=== PATIENT | female | born 1940 | race Caucasian/White ===

== ENCOUNTER → 2017-10-02 13:58 | Outpatient (CLI) | payer MEDICARE, OTHER, SELFPAY | PROVIDERS: Family Provider Family Medicine Geriatric Medicine; PCP Family Medicine Geriatric Medicine; Visit Provider Obstetrics & Gynecology | DX: R30.0 Dysuria (principal); R31.9 Hematuria, unspecified; R52 Pain, unspecified | CPT/HCPCS: 87086; 87088 ==

== ENCOUNTER → 2017-11-26 13:35 | Outpatient (CLI) | payer MEDICARE, OTHER, SELFPAY ==
--- NOTE | 2017-11-26 13:39 | VDLE_ITS ---
Reason For Study: edema RIGHT LEFT GSV is normal. GSV is normal. CFV is compressible, spontaneous, phasic, CFV is compressible, spontaneous, phasic, competent and demonstrates normal competent, and demonstrates normal augmentation. augmentation. FV is compressible, spontaneous, phasic, FV is compressible, spontaneous, phasic, competent and demonstrates normal competent and demonstrates normal augmentation. augmentation. POP V is compressible, spontaneous, phasic, POP V is compressible, spontaneous, phasic, competent and demonstrates normal competent and demonstrates normal augmentation. augmentation. T/P Trunk is compressible. T/P Trunk is compressible. PTV is compressible. PTV is compressible. RT PerV is compressible. LT PerV is compressible. Procedure Exam performed in department. The exam was diagnostic. A preliminary report was called and/or faxed to Dr. Brandt. Interpretation Summary Deep veins of the lower extremities are bilaterally patent and compressible segmentally. There is no evidence of deep vein thrombosis on either side. Valvular competence appears intact within the proximal deep venous systems bilaterally. The greater saphenous veins appear bilaterally patent and compressible segmentally. Ordering Physician: Yaya Brandt Performed By: Román Singh RVT
== END ==
PROVIDERS: Family Provider Family Medicine Geriatric Medicine; PCP Family Medicine Geriatric Medicine; Visit Provider Family Medicine Geriatric Medicine
DX: R60.0 Localized edema (principal)
CPT/HCPCS: 93970

== ENCOUNTER → 2017-12-03 17:23 | Outpatient (CLI) | payer MEDICARE, OTHER, SELFPAY ==
[2017-12-03 17:55] LABS: Absolute Neutrophil Count 4.3 X10^3/uL (2.0-7.7); Basophil# 0.02 X10^3/uL; Basophil% 0.3 % (0-1); Eosinophil# 0.25 X10^3/uL; Hematocrit 36.8 % (37-47); Hemoglobin 11.7 g/dl (12.0-15.0); Lymphocyte % 17.4 % (19-41); Mean Corp Hgb Conc 31.8 g/gl (32-36); Mean Corpuscular Volume 94.4 fL (81-99); Mean Platelet Vol. 10.4 fl (6.2-12.0); Monocyte# 0.62 X10^3/uL; Monocyte% 9.8 % (0-10); Neutrophil # 4.32 X10^3/uL (2.7-7.7); Neutrophil % 68.3 % (47-70); POSITIVE COUNT NO; POSITIVE DIFFERENTIAL NO; POSITIVE MORPHOLOGY NO; Platelet Count 223 K/mm3 (150-450); RBC Distribution Width CV 14.8 % (11.6-14.6); RBC Distribution Width SD 50.1 fl (35.1-43.9); White Blood Count 6.3 K/mm3 (4.4-11.0)
[2017-12-03 18:31] LABS: Anion Gap 7 (5-15); BUN 21 mg/dL (7-18); BUN/Creat Ratio 25.4 RATIO (10-20); Calcium,Total 8.5 mg/dL (8.5-10.1); Chloride 103 mmol/L (98-107); Creatinine, Serum 0.83 mg/dL (0.55-1.02); EST Glomerular Filtration Rate 71 mL/min (>60); Est Glom Filt Rate - Afr Amer 86 mL/min (>60); Glucose 105 mg/dL (74-106); Potassium 3.7 mmol/L (3.5-5.1); Sodium Level 142 mmol/L (136-145)
== END ==
PROVIDERS: Family Provider Family Medicine Geriatric Medicine; PCP Family Medicine Geriatric Medicine; Visit Provider Family Medicine Geriatric Medicine
DX: I10 Essential (primary) hypertension (principal)
CPT/HCPCS: 36415; 80048; 85025

== ENCOUNTER 2017-12-07 12:34 | Inpatient (IN) | payer MEDICARE, OTHER, SELFPAY ==
[2017-12-07 12:35] VITALS: BP 127/76; PULSE 81; RESP 16; TEMP 36.4; O2SAT 99; BMI 28.7
--- NOTE | 2017-12-07 15:58 | ED.VISSUMM ---
- ER Visit Summary Date of Service: 12/07/17 Chief Complaint: Left lower extremity cellulitis with hematoma History of Present Illness: The patient is a 77 F who hit her left lower extremity 2 weeks ago on a bed frame. She developed a small hematoma around the area. She saw her doctor multiple times for the past 2 weeks has been on Keflex, Rocephin, Levaquin and clindamycin still has a hematoma with cellulitis. Patient has a history of atrial fibrillation on Coumadin. They spoke with Dr. Arellano the plastic surgeon as plan was to do a hematoma drain. He could not do that in the office so the patient was sent here for admission. Patient denies a fever at this time. Physical Examination: Vital signs reviewed. Left lower extremity exam reveals erythema just above the ankle. She has a hematoma that measures 3.5 x 3.5 cm. It is tender to touch. She has 2+ distal pulses. Test Results: [] Emergency Department Course and Treatment: Screening labs were obtained. Patient was discussed with hospitalist for admission and plastic surgery consult Treatment Plan: [] Disposition: Admit Impression: Lower extremity hematoma This note was generated with Cellvine dictation software. It may contain incorrect words, spelling, and punctuation that were not noted in review of the chart prior to signing ED Disposition - Plan for ED Patient: Chief Complaint: Cellulitis Referrals: Yaya Brandt Chi, MD [Primary Care Provider] -
[2017-12-07 16:33] VITALS: BMI 28.7
[2017-12-07 16:37] LABS: Absolute Lymphocyte Count 1.18 X10^3/ul (0.83-4.51); Absolute Neutrophil Count 4.6 X10^3/uL (2.0-7.7); Basophil# 0.02 X10^3/uL; Basophil% 0.3 % (0-1); Eosinophil# 0.23 X10^3/uL; Eosinophils% 3.5 % (0-5); Lymphocyte # 1.18 X10^3/ul (4.0); Lymphocyte % 18.2 % (19-41); Mean Corp Hgb Conc 32.5 g/gl (32-36); Mean Corpuscular Hgb 30.2 pg (27.0-32.0); Mean Corpuscular Volume 92.8 fL (81-99); Mean Platelet Vol. 10.3 fl (6.2-12.0); Monocyte# 0.44 X10^3/uL; Monocyte% 6.8 % (0-10); Platelet Count 246 K/mm3 (150-450); RBC Distribution Width CV 14.7 % (11.6-14.6); RBC Distribution Width SD 48.6 fl (35.1-43.9); Red Blood Count 4.31 M/mm3 (4.2-5.4); White Blood Count 6.5 K/mm3 (4.4-11.0)
[2017-12-07 16:38] LABS: POSITIVE COUNT NO; POSITIVE DIFFERENTIAL NO; POSITIVE MORPHOLOGY NO
[2017-12-07 16:48] LABS: Anion Gap 7 (5-15); BUN 19 mg/dL (7-18); BUN/Creat Ratio 22.4 RATIO (10-20); Calcium,Total 9.1 mg/dL (8.5-10.1); Chloride 103 mmol/L (98-107); Creatinine, Serum 0.85 mg/dL (0.55-1.02); EST Glomerular Filtration Rate 69 mL/min (>60); Est Glom Filt Rate - Afr Amer 84 mL/min (>60); Estimated Creatinine Clearance 53.53 ml/min; Glucose 89 mg/dL (74-106); Potassium 3.7 mmol/L (3.5-5.1); Sodium Level 141 mmol/L (136-145)
[2017-12-07 17:07] VITALS: BP 134/79; PULSE 67; RESP 16; TEMP 36.6; O2SAT 100
--- NOTE | 2017-12-07 18:06 | PCM.HP.STD ---
Problem List (1) Hematoma of left lower extremity Status: Acute History of Present Illness Date of Admission: 12/07/17 Chief Complaint: left leg hematoma The patient is a 77 year old F who on 25 November was trying to move something on her bed with her foot in the medical object underneath bed. Subsequently developed a hematoma of her left lower extremity. Concern was for cellulitis as well and patient been on numerous rounds of biotics. Was not getting any better patient was sent to the emergency room. Patient had a hematoma on the distal aspect of her left pool. Dr. Arellano was contacted and advised patient to be brought into the hospital so that he could do a hematoma drain on the . [] Past Medical History Past Medical History (Chronic Problems): Chronic Problems Paroxysmal atrial fibrillation (Chronic) Hyperlipidemia (Chronic) Benign hypertension (Chronic) Allergies No Known Allergies Allergy (Verified 12/07/17 12:38) Home Medications: Ambulatory Orders Medication Instructions Recorded Losartan Potassium [Cozaar] 50 mg PO BID 06/29/14 Warfarin [Coumadin] 4 mg PO QODAY 06/29/14 Ascorbic Acid [Vitamin C] 1,000 mg PO DAILY 10/28/16 Magnesium 200 mg PO DAILY 10/28/16 Vitamin A 10,000 unit PO DAILY 10/28/16 Clindamycin HCl [Clindamycin HCl] 300 mg PO TID 12/07/17 Hydrochlorothiazide 12.5 mg PO DAILY 12/07/17 [Hydrochlorothiazide] Metoprolol Tartrate [Lopressor 12.5 mg PO BID 12/07/17 (beta nely)] Warfarin [Coumadin ([facility])] 3 mg PO QODAY 12/07/17 levoFLOXacin tablet [Levaquin 500 mg PO DAILY 12/07/17 tablet] Surgical History: - - Foot surgery Psychiatric History: No pertinent psych hx 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 Smoking Status: Former smoker - *Family History Maternal History Items: Cancer - Breast cancer Paternal History Items: No pertinent history Review of Systems Constitutional: Denies: Anorexia, Chills, Fever Eyes: Denies: Blurred vision, Double vision HEENT: Denies: Head Aches, Sinus Congestion, Sinus Drainage Cardiovascular: Denies: Chest Pain, Palpitations Respiratory: Denies: Cough, Shortness of breath at rest, Sputum production Gastrointestinal: Denies: Abdominal Pain, Nausea, Vomiting Genitourinary: Denies: Dysuria Musculoskeletal: Denies: Joint Pain, Joint Tenderness Skin: Reports: - - Hematoma on the left anterior pool. Did have a surrounding erythema that is actually doing better according to the patient Neurological: Denies: Numbness, Tingling, Focal weakness Endocrine: Denies: Change in Body Habitus Hematologic/ Lymphatic: Reports: Easy Bleeding. Denies: Hx of blood clot Comment: All review of systems are negative except as mentioned in the history of present illness and the other review of systems. VTE Information - Inpt Only VTE Present on Admission: No VTE Mechan Device Prophylaxis: SCD's VTE Pharm Prophylaxis ordered?: No Reason prophylaxis not ordered:: Procedure Not Indicated Patient Problems: Active and Suspected Problems Hematoma of left lower extremity (Acute) - Physical Exam General: Alert, Cooperative, No apparent distress HEENT: Atraumatic, Normocephalic Oral: Moist Mucosa, No Gingival or Mucosal Lesions/ Ulcerations Neck: No Nodes, Thyroid Normal Size and Texture Lungs: Clear to auscultation, Normal air movement, No rhonchi, No wheeze Cardiovascular: Regular rate, Regular Rhythm, Normal S1, Normal S2, No murmurs Abdomen: Bowel Sounds Present, Soft, Non Tender, Non-Distended, No Hepato-splenomegaly Extremities: No edema, No Calf Tenderness Skin: - - Hematoma on the distal left pool. Medial. Approximately 2 cm in diameter. This is some faint redness around it but no warmth. Slightly tender to palpation. Musculoskeletal: No Muscle Wasting Psych/Mental Status: Normal Affect, Appropriate Vital Signs Temp Pulse Resp BP Pulse Ox 36.6 C 67 16 134/79 H 100 12/07/17 17:07 12/07/17 17:07 12/07/17 17:07 12/07/17 17:07 12/07/17 17:07 Oxygen Delivery Method Room Air Weight: 80.739 kg Body Mass Index (BMI) 28.7 Laboratory Tests Past 24 Hrs 12/07/17 12/07/17 16:10 16:10 WBC 6.5 RBC 4.31 Hgb 13.0 Hct 40.0 MCV 92.8 MCH 30.2 MCHC 32.5 RDW 14.7 H RDW Differential 48.6 H Plt Count 246 MPV 10.3 Immature Gran % (Auto) 0.200 Neut % (Auto) 71.0 H Lymph % (Auto) 18.2 L Potter % (Auto) 6.8 Eos % (Auto) 3.5 Baso % (Auto) 0.3 Absolute Neuts (auto) 4.6 Absolute Lymphs (auto) 1.18 Total Counted Not Reportable Sodium 141 Potassium 3.7 Chloride 103 Carbon Dioxide 31.0 Anion Gap 7 BUN 19 H Creatinine 0.85 Estim Creat Clear Calc 53.53 Est GFR (MDRD) Af Amer 84 Est GFR (MDRD) Non-Af 69 BUN/Creatinine Ratio 22.4 H Glucose 89 Calcium 9.1 Assessment/Plan All Active Problems Hematoma of left lower extremity (Acute) Institution of sotalol therapy (Acute) 1. Left lower extremity hematoma Secondary to trauma though mild to the leg plus being on Coumadin. No external cellulitis that I can appreciate however the patient has been on antibiotics prior to arrival. I will continue with the clindamycin and Levaquin as she was taking previously Patient being admitted so she can have his drain placed to Dr. Arellano will be on consultation. 2. Atrial fibrillation Rate controlled Coumadin will be held Check INR today and tomorrow Deferred to Dr. Arellano of reversal is necessary 3. DVT prophylaxis. Patient will have a right sided SCD for now. Code Visit OBSV E&M: 39309 Initial observation care L2
--- NOTE | 2017-12-07 18:11 | HP.PCM_ITS ---
Problem List (1) Hematoma of left lower extremity Status: Acute History of Present Illness Date of Admission: 12/07/17 Chief Complaint: left leg hematoma The patient is a 77 year old F who on 25 November was trying to move something on her bed with her foot in the medical object underneath bed. Subsequently developed a hematoma of her left lower extremity. Concern was for cellulitis as well and patient been on numerous rounds of biotics. Was not getting any better patient was sent to the emergency room. Patient had a hematoma on the distal aspect of her left pool. Dr. Arellano was contacted and advised patient to be brought into the hospital so that he could do a hematoma drain on the . [] Past Medical History Past Medical History (Chronic Problems): Chronic Problems Paroxysmal atrial fibrillation (Chronic) Hyperlipidemia (Chronic) Benign hypertension (Chronic) Allergies No Known Allergies Allergy (Verified 12/07/17 12:38) Home Medications: Ambulatory Orders Medication Instructions Recorded Losartan Potassium [Cozaar] 50 mg PO BID 06/29/14 Warfarin [Coumadin] 4 mg PO QODAY 06/29/14 Ascorbic Acid [Vitamin C] 1,000 mg PO DAILY 10/28/16 Magnesium 200 mg PO DAILY 10/28/16 Vitamin A 10,000 unit PO DAILY 10/28/16 Clindamycin HCl [Clindamycin HCl] 300 mg PO TID 12/07/17 Hydrochlorothiazide 12.5 mg PO DAILY 12/07/17 [Hydrochlorothiazide] Metoprolol Tartrate [Lopressor 12.5 mg PO BID 12/07/17 (beta nely)] Warfarin [Coumadin ([facility])] 3 mg PO QODAY 12/07/17 levoFLOXacin tablet [Levaquin 500 mg PO DAILY 12/07/17 tablet] Surgical History: - - Foot surgery Psychiatric History: No pertinent psych hx 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 history Smoking Status: Former smoker - *Family History Maternal History Items: Cancer - Breast cancer Paternal History Items: No pertinent history Review of Systems Constitutional: Denies: Anorexia, Chills, Fever Eyes: Denies: Blurred vision, Double vision HEENT: Denies: Head Aches, Sinus Congestion, Sinus Drainage Cardiovascular: Denies: Chest Pain, Palpitations Respiratory: Denies: Cough, Shortness of breath at rest, Sputum production Gastrointestinal: Denies: Abdominal Pain, Nausea, Vomiting Genitourinary: Denies: Dysuria Musculoskeletal: Denies: Joint Pain, Joint Tenderness Skin: Reports: - - Hematoma on the left anterior pool. Did have a surrounding erythema that is actually doing better according to the patient Neurological: Denies: Numbness, Tingling, Focal weakness Endocrine: Denies: Change in Body Habitus Hematologic/ Lymphatic: Reports: Easy Bleeding. Denies: Hx of blood clot Comment: All review of systems are negative except as mentioned in the history of present illness and the other review of systems. VTE Information - Inpt Only VTE Present on Admission: No VTE Mechan Device Prophylaxis: SCD's VTE Pharm Prophylaxis ordered?: No Reason prophylaxis not ordered:: Procedure Not Indicated Patient Problems: Active and Suspected Problems Hematoma of left lower extremity (Acute) - Physical Exam General: Alert, Cooperative, No apparent distress HEENT: Atraumatic, Normocephalic Oral: Moist Mucosa, No Gingival or Mucosal Lesions/ Ulcerations Neck: No Nodes, Thyroid Normal Size and Texture Lungs: Clear to auscultation, Normal air movement, No rhonchi, No wheeze Cardiovascular: Regular rate, Regular Rhythm, Normal S1, Normal S2, No murmurs Abdomen: Bowel Sounds Present, Soft, Non Tender, Non-Distended, No Hepato- splenomegaly Extremities: No edema, No Calf Tenderness Skin: - - Hematoma on the distal left pool. Medial. Approximately 2 cm in diameter. This is some faint redness around it but no warmth. Slightly tender to palpation. Musculoskeletal: No Muscle Wasting Psych/Mental Status: Normal Affect, Appropriate Vital Signs Temp Pulse Resp BP Pulse Ox 36.6 C 67 16 134/79 H 100 12/07/17 17:07 12/07/17 17:07 12/07/17 17:07 12/07/17 17:07 12/07/17 17:07 Oxygen Delivery Method Room Air Weight: 80.739 kg Body Mass Index (BMI) 28.7 Laboratory Tests Past 24 Hrs 12/07/17 12/07/17 16:10 16:10 WBC 6.5 RBC 4.31 Hgb 13.0 Hct 40.0 MCV 92.8 MCH 30.2 MCHC 32.5 RDW 14.7 H RDW Differential 48.6 H Plt Count 246 MPV 10.3 Immature Gran % (Auto) 0.200 Neut % (Auto) 71.0 H Lymph % (Auto) 18.2 L [place] % (Auto) 6.8 Eos % (Auto) 3.5 Baso % (Auto) 0.3 Absolute Neuts (auto) 4.6 Absolute Lymphs (auto) 1.18 Total Counted Not Reportable Sodium 141 Potassium 3.7 Chloride 103 Carbon Dioxide 31.0 Anion Gap 7 BUN 19 H Creatinine 0.85 Estim Creat Clear Calc 53.53 Est GFR (MDRD) Af Amer 84 Est GFR (MDRD) Non-Af 69 BUN/Creatinine Ratio 22.4 H Glucose 89 Calcium 9.1 Assessment/Plan All Active Problems Hematoma of left lower extremity (Acute) Institution of sotalol therapy (Acute) 1. Left lower extremity hematoma * Secondary to trauma though mild to the leg plus being on Coumadin. * No external cellulitis that I can appreciate however the patient has been on antibiotics prior to arrival. I will continue with the clindamycin and Levaquin as she was taking previously * Patient being admitted so she can have his drain placed to Dr. Arellano will be on consultation. 2. Atrial fibrillation * Rate controlled * Coumadin will be held * Check INR today and tomorrow * Deferred to Dr. Arellano of reversal is necessary 3. DVT prophylaxis. Patient will have a right sided SCD for now. Code Visit OBSV E&M: [id number] Initial observation care L2
[2017-12-07 19:16] VITALS: BMI 29.0
[2017-12-07 19:18] VITALS: BP 136/69; PULSE 79; RESP 18; TEMP 36.4; O2SAT 100
[2017-12-07 20:02] LABS: International Normalized Ratio 2.4; Prothrombin Time (Protime)PT. 26.5 SECONDS (11.7-14.9)
[2017-12-07 21:53] VITALS: PULSE 82
[2017-12-07] MEDS: Losartan Potassium 50 MG Tablet PO (21:53)
[2017-12-07] MEDS: Metoprolol Tartrate 25 MG Tablet 12.5 MG PO (21:53)
--- NOTE | 2017-12-07 22:26 | PCM.CONS.GEN ---
Reason for Consult Date of Consultation: 12/07/17 Reason for Consultation: Traumatic hematoma left anteromedial leg with surrounding cellulitis. REFERRING PHYSICIAN: Dr. Arthur. BANDING MACHINE OPERATOR: Dr. Arellano. History of Present Illness: The patient is a 77 year old F who bumped her left leg on the edge of her bed at home on 11/25/17. She sustained a traumatic hematoma. She is on Coumadin for atrial fibrillation. She became concerned because of increasing discoloration and pain and swelling and redness. She went to the ED for evaluation and was admitted. She was started on Cleocin and Levaquin. I was asked to evaluate this patient for surgical options for treatment. Past Medical History Past Medical History (Chronic Problems): Chronic Problems History of cardiac radiofrequency ablation (RFA) (Chronic) Chronic anticoagulation (Chronic) Paroxysmal atrial fibrillation (Chronic) Hyperlipidemia (Chronic) Benign hypertension (Chronic) Allergies No Known Allergies Allergy (Verified 12/07/17 12:38) Current Medications Acetaminophen (Tylenol) 650 mg PO Q6H PRN Ascorbic Acid (Vitamin C) 1,000 mg PO DAILY [facility] Clindamycin HCl (Cleocin) 300 mg PO TID [facility] Hydrochlorothiazide (Hydrochlorothiazide) 12.5 mg PO DAILY [facility] Levofloxacin (Levaquin Tablet) 500 mg PO DAILY [facility] Losartan Potassium (Cozaar) 50 mg PO BID [facility] Magnesium Hydroxide (Milk Of Magnesia) 30 ml PO DAILY PRN Magnesium Oxide (Mag-Ox 400) 200 mg PO DAILY [facility] Metoprolol Tartrate (Lopressor (Beta Miguelangel)) 12.5 mg PO BID [facility] Non-Formulary Medication (Vitamin A [Vitamin A]) 10,000 unit PO DAILY [facility] Ondansetron HCl (Zofran) 4 mg IV Q8H PRN Oxycodone HCl (Oxyir) 5 - 10 mg PO Q4H PRN Home Medications: Ambulatory Orders Medication Instructions Recorded Losartan Potassium [Cozaar] 50 mg PO BID 06/29/14 Warfarin [Coumadin] 4 mg PO QODAY 06/29/14 Ascorbic Acid [Vitamin C] 1,000 mg PO DAILY 10/28/16 Magnesium 200 mg PO DAILY 10/28/16 Vitamin A 10,000 unit PO DAILY 10/28/16 Hydrochlorothiazide 12.5 mg PO DAILY 12/07/17 Metoprolol Tartrate [Lopressor 12.5 mg PO BID 12/07/17 (beta miguelangel)] Warfarin [Coumadin] 3 mg PO QODAY 12/07/17 levoFLOXacin tablet [Levaquin 500 mg PO DAILY 12/07/17 tablet] Acetaminophen [Tylenol Tablet] 650 mg PO Q6H PRN PRN tablet 12/09/17 Diazepam [Valium] 5 mg PO TID PRN PRN 7 Days #20 tab 12/09/17 Oxycodone HCl/Acetaminophen 1 - 2 tab PO 4X/DAY PRN PRN 5 Days 12/09/17 [Percocet 5/325] #40 tab Surgical History: - - Foot surgery Psychiatric History: No pertinent psych hx 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 Eyes: Denies: Blurred vision, Double vision. HEENT: Denies: Head Aches, Sinus Congestion, Sinus Drainage. Cardiovascular: Denies: Chest Pain, Palpitations. Respiratory: Denies: Cough, Shortness of breath at rest, Sputum production. Gastrointestinal: Denies: Abdominal Pain, Nausea, Vomiting. Genitourinary: Denies: Dysuria. Musculoskeletal: Denies: Joint Pain, Joint Tenderness. Skin: Reports: - - Hematoma on the left anteromedial leg. Surrounding cellulitis. Neurological: Denies: Numbness, Tingling, Focal weakness. Endocrine: Denies: Change in Body Habitus. Hematologic/ Lymphatic: Reports: Easy Bleeding. Denies: Hx of blood clot Patient Problems: Active and Suspected Problems Cellulitis of left leg (Acute) - Physical Exam General: Alert, Cooperative, No apparent distress HEENT: PERRL. EOMI. Oral: Moist Mucosa. Neck: Supple and nontender. No cervical adenopathy. Lungs: Clear to auscultation. Cardiovascular: Regular rate, Regular Rhythm. Abdomen: Soft, Non-Distended. Extremities: No clubbing or cyanosis. Mild edema in left lower extremity. Skin: - - Hematoma on the left anteromedial leg near the ankle. Area of discoloration measures 4 cm. Raised in configuration. Tender to palpation. No purulent drainage. Surrounding cellulitis with associated swelling. No warmth. Neuro: CN II - XII grossly intact. Psych/Mental Status: Normal Affect, Appropriate Vital Signs Temp Pulse Resp BP Pulse Ox 97.6 F L 82 18 136/69 H 100 12/07/17 19:18 12/07/17 21:53 12/07/17 19:18 12/07/17 19:18 12/07/17 19:18 Oxygen Delivery Method Room Air Weight: 180 lb 5.41 oz Body Mass Index (BMI) 29.0 Assessment/Plan All Active Problems Cellulitis of left leg (Acute) Hematoma of left lower extremity (Acute) Institution of sotalol therapy (Resolved) 1. Traumatic hematoma left anteromedial leg with cellulitis. 2. 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 Continue Cleocin and Levaquin. No xray has been done. Will obtain a CT to look at the extent of the hematoma to make sure there is not a component of hematoma in the deeper compartments. Also will make sure there is no fracture. There is skin discoloration secondary to pressure from the hematoma. With the surrounding cellulitis, am concerned about infection. Recommend operative intervention for incision and drainage and excisional debridement of the traumatic hematoma. Will leave the wound open and proceed with postop wound care with the VAC as long as there is not too much oozing secondary to her Coumadin. At the time of surgery, will send tissue to Microbiology for culture and to Pathology for analysis to rule out carcinoma. Patient is aware that there will be a wound after the surgery. After discharge followup at the Wound Center. If there is a plateau in the healing process, can proceed with delayed closure with skin grafting. Patient was informed of the risks and complications of the procedure including alternatives to surgery. These were discussed with the patient personally. Patient voices understanding and wishes to proceed. Code Visit Inpatient E&M: 92388 Init Hosp L2 - ICD-10 - S80.12xA, L03.116, Z79.01
[2017-12-07] MEDS: levoFLOXacin IV 500 MG/100 ML BAG 100 MG IV (23:43)
[2017-12-08] VITALS (13 sets, daily range): BP systolic 109–139; BP diastolic 47–84; PULSE 62–85; RESP 16–18; TEMP 36.4–36.9; O2SAT 93–99; BMI 29.0; BMI 28.7
--- NOTE | 2017-12-08 | THRO_PTH ---
PATIENT: PORTILLO NGUYEN LOC: MS2 U#:[id number] AGE/SX: 77/F ROOM: [facility] RE12/08/[address]: Dr. Briana Prince DO : 1940 BED: 1 DIS: 12/09/2017 SPEC #: [id number] RECD: 12/08/17 16:17 STATUS: SYL REBala #: [id number] JANICE: 12/08/17 00:[address]: Regis Arellano DEPT: SURGICAL PATHOLOGY RECD BY: Payam Haile ENTERED: 12/09/17 09:09 SP TYPE: THROMBUS OTHR DR: DO Dr. Abelardo Mcclelland DO Dr. James A Slaby, MD Dr. Tai Chi Kwok, MD Tissues: BLOOD CLOT, NOS Procedures: Surgery Specimen Level IV Comments: @ Ordering doctor for SUIII edited from to @ by MARCO at 12/09/17 1525 @ Submitting doctor edited from to @ by RGOOD at 12/09/17 1525 HEADER OPERATION: Evacuation hematoma leg PRE-OP DIAGNOSIS: Hematoma left leg TISSUE SUBMITTED: Hematoma left leg MICROSCOPIC DIAGNOSIS Hematoma of left leg, excision: Skin with underlying soft tissue containing organizing hematoma with associated acute and chronic inflammation and reactive change. TOVA:teena 12/10/17 MICROSCOPIC DESCRIPTION Slides are reviewed. GROSS DESCRIPTION Received in fixative is one container labeled with the patient's name and designated hematoma left leg. The specimen consists of a round piece of kenyon-light brown skin measuring 6 x 5 cm and up to 2 cm in thickness. The deep surface shows the presence of blood clot consistent with hematoma. Also present in the container is a piece of skin measuring 3 x 1 x 0.2 cm, triangular in shape. Also present in the container are multiple pieces of adipose tissue measuring in aggregate 2.5 x 2 x 1 cm. Sections reveal blood clot consistent with hematoma. Upholstery Tech sections are submitted in two cassettes. / TOVA:teena 12/09/17 TC:5 [facility]: [id number]
--- NOTE | 2017-12-08 05:00 | CT_ITS ---
STUDY: CT TIBIA AND FIBULA WITH CONTRAST LEFT REASON FOR EXAM: Female, 77 years old. Patient hit leg against metal portion of bed. Abscess versus hematoma. RADIATION DOSAGE (If Supplied By Facility): CTDIvol = ( 15.35 ) mGy, DLP = ( 937.10 ) mGycm. Individualized dose optimization techniques were used for this CT.? TECHNIQUE: Axial images through the lower leg after administration of 100 mL Isovue 300 intravenous contrast with sagittal and coronal reconstructions. COMPARISON: None. FINDINGS: Alignment of the tibia and fibula are normal. No fracture or dislocation. Superficially located within the anterior medial soft tissue of the lower leg at the level of the distal tibial diaphysis, is a well-circumscribed ovoid soft tissue attenuation mass measuring 3.0 x 1.4 x 2.2 cm in the craniocaudad, AP and transverse dimensions respectively, attenuation 16 Hounsfield units. This probably represents a hematoma. The mass is well seen on sagittal image 15 and coronal image 11. No significant contrast enhancement. The center of the mass is 0.7 cm deep to the anterior skin surface. This soft tissue mass will likely not be amenable to drainage. There is a small amount of fluid superior and medial to the mass at the junction of the subcutaneous soft tissue and musculature. Small amount of fluid is present within the subcutaneous soft tissue adjacent to the medial malleolus. Vascular calcifications involving the popliteal artery and trifurcation vessels. CT/Extremity Lower WITH Contrast IMPRESSION: 3 cm well-circumscribed subcutaneous soft tissue mass anterior medial aspect of the lower leg likely representing a hematoma, in view of the history of trauma. Small amount of subcutaneous soft tissue fluid medial aspect of the lower leg and adjacent to the medial malleolus. Electronically Signed: Bahman Seay MD at 5:49 EDT , Service support ,
--- NOTE | 2017-12-08 06:00 | EKG12_ITS ---
Test Reason : AM EKG Blood Pressure : / mmHG Vent. Rate : 067 BPM Atrial Rate : 067 BPM P-R Int : 208 ms QRS Dur : 088 ms QT Int : 424 ms P-R-T Axes : 054 004 -10 degrees QTc Int : 448 ms Normal sinus rhythm Septal infarct , age undetermined Abnormal ECG When compared with ECG of 20-NOV-2016 08:31, Sinus rhythm has replaced Atrial fibrillation Vent. rate has decreased BY 70 BPM Septal infarct is now Present T wave inversion no longer evident in Lateral leads Confirmed by DUSTY ABREU ([id number]), production editor JADON HERNANDEZ ([id number]) on 12/17/2017 12:35:18 PM Referred By: Yaya Brandt Confirmed By:DUSTY ABREU
[2017-12-08 06:46] LABS: Absolute Lymphocyte Count 0.94 X10^3/ul (0.83-4.51); Absolute Neutrophil Count 3.4 X10^3/uL (2.0-7.7); Basophil# 0.02 X10^3/uL; Basophil% 0.4 % (0-1); Eosinophil# 0.28 X10^3/uL; Eosinophils% 5.5 % (0-5); Hemoglobin 11.5 g/dl (12.0-15.0); Lymphocyte # 0.94 X10^3/ul (4.0); Lymphocyte % 18.5 % (19-41); Mean Corp Hgb Conc 32.9 g/gl (32-36); Mean Corpuscular Hgb 30.3 pg (27.0-32.0); Mean Corpuscular Volume 92.3 fL (81-99); Mean Platelet Vol. 10.3 fl (6.2-12.0); Monocyte# 0.42 X10^3/uL; Monocyte% 8.3 % (0-10); Neutrophil # 3.42 X10^3/uL (2.7-7.7); Neutrophil % 67.1 % (47-70); Platelet Count 212 K/mm3 (150-450); RBC Distribution Width CV 14.5 % (11.6-14.6); RBC Distribution Width SD 47.7 fl (35.1-43.9); Red Blood Count 3.79 M/mm3 (4.2-5.4); White Blood Count 5.1 K/mm3 (4.4-11.0)
[2017-12-08 06:50] LABS: POSITIVE COUNT NO; POSITIVE DIFFERENTIAL NO; POSITIVE MORPHOLOGY NO
[2017-12-08 06:51] LABS: International Normalized Ratio 2.3; Prothrombin Time (Protime)PT. 25.7 SECONDS (11.7-14.9)
[2017-12-08 07:07] LABS: Anion Gap 8 (5-15); BUN 17 mg/dL (7-18); BUN/Creat Ratio 21.5 RATIO (10-20); Calcium,Total 8.3 mg/dL (8.5-10.1); Chloride 105 mmol/L (98-107); Creatinine, Serum 0.79 mg/dL (0.55-1.02); EST Glomerular Filtration Rate 75 mL/min (>60); Est Glom Filt Rate - Afr Amer 91 mL/min (>60); Glucose 85 mg/dL (74-106); Potassium 3.8 mmol/L (3.5-5.1); Prealbumin 18.5 mg/dL (20.0-40.0); Sodium Level 141 mmol/L (136-145)
--- NOTE | 2017-12-08 07:28 | PN_ITS ---
Patient Problems: Active and Suspected Problems Hematoma of left lower extremity (Acute) Subjective: The patient is a 77-year-old female with a past medical history of paroxysmal atrial fibrillation, radiofrequency ablation, hyperlipidemia, hypertension and chronic anticoagulation with warfarin who presented to the emergency department at [facility] on 12/07/2017 who sustained a injury to her left lower extremity on November 25 resulting in a large hematoma. She apparently had been on multiple rounds of antibiotics with no improvement and Dr. Arellano was contacted. She was advised to come to the emergency room to be admitted for drainage of the hematoma. Vital signs at presentation to the emergency room were temperature 97.6, pulse 81, blood pressure 127/76, respiratory rate 16 and she was 99% saturated on room air. White blood cell count was normal at 6.5 with 71% neutrophils. Hemoglobin was 13 and the platelets were within normal limits. INR was therapeutic at 2.4. She was admitted to the hospital and consult was obtained with Dr. Arellano. She was placed on clindamycin and Levaquin by Dr. Arellano. Coumadin is on hold. All events of the past 24 Hours have been reviewed Antibiotic day #2 VS: Within normal limits TMAX -afebrile Lab: White blood count remains normal at 5.1 with a normal differential. INR is 2.3 today. Electrolytes are within normal limits. Subjective: She denies chest pain, shortness of breath, palpitations, lightheadedness. Pain is adequately controlled. Objective: PHYSICAL EXAM: GENERAL: alert, oriented X 3, Cooperative, NAD ORAL: moist mucosa, no mucosal lesions NECK: No JVD, supple, trachea midline LUNGS: CTA, symmetric chest expansion HEART: RRR, Normal S1 and S2, no rub, no gallop, no MM ABDOMEN: soft, NT, ND, BS present, no guarding with palpation EXTREMITIES: no edema, no cyanosis, no calf tenderness SKIN: She has a hematoma of the distal LLE that is proximal to the ankle and over the tibia anteriorly. There is discoloration of the distal LLE....brownish. There is no bleeding. There is increased warmth to touch and the erythema is well within the marked border. NEUROLOGIC: no focal neurologic deficits PSYCH: appropriate, normal affect, pleasant - Physical Exam Vital Signs Temp Pulse Resp BP Pulse Ox 97.7 F L 74 16 129/80 H 95 12/08/17 05:26 12/08/17 05:26 12/08/17 05:26 12/08/17 05:26 12/08/17 05:26 Oxygen Delivery Method Room Air Weight: 180 lb 5.41 oz Body Mass Index (BMI) 29.0 Intake and Output for Last 24 Hours 12/06/17 12/07/17 12/08/17 23:59 23:59 23:59 Intake Total 675 / 675 171 / 171 Balance 675 / 675 171 / 171 Laboratory Tests Past 24 Hrs 12/08/17 12/08/17 12/08/17 06:24 06:24 06:24 WBC 5.1 RBC 3.79 L Hgb 11.5 L Hct 35.0 L MCV 92.3 MCH 30.3 MCHC 32.9 RDW 14.5 RDW Differential 47.7 H Plt Count 212 MPV 10.3 Immature Gran % (Auto) 0.200 Neut % (Auto) 67.1 Lymph % (Auto) 18.5 L Mcculloch % (Auto) 8.3 Eos % (Auto) 5.5 H Baso % (Auto) 0.4 Absolute Neuts (auto) 3.4 Absolute Lymphs (auto) 0.94 Total Counted Not Reportable PT 25.7 H INR 2.3 Sodium 141 Potassium 3.8 Chloride 105 Carbon Dioxide 28.0 Anion Gap 8 BUN 17 Creatinine 0.79 Estim Creat Clear Calc 45.50 Est GFR (MDRD) Af Amer 91 Est GFR (MDRD) Non-Af 75 BUN/Creatinine Ratio 21.5 H Glucose 85 Calcium 8.3 L Prealbumin 18.5 L Medical Necessity - Tobacco Use Smoking Status: Former smoker Assessment/Plan All Active Problems Hematoma of left lower extremity (Acute) Institution of sotalol therapy (Acute) Impressions 1. Infected hematoma distal left lower extremity 2. Chronic anticoagulation with warfarin with a current INR of 2.3. Coumadin is on hold. I discussed with Dr. Arellano and he is okay with proceeding with surgery for drainage of the hematoma today. 3. Paroxysmal atrial fibrillation-status post radiofrequency ablation 4. Hypertension-controlled 5. Hyperlipidemia Continue to hold Coumadin Plan for surgical drainage of hematoma left lower extremity today Continue Levaquin and clindamycin-cultures will be taken at the time of surgery. Code Visit Inpatient E&M: 82000 Subs Hosp L2
[2017-12-08] MEDS: Magnesium Oxide 400 MG Tablet 200 MG PO (08:40)
[2017-12-08] MEDS: Ascorbic Acid 500 MG Tablet 1000 MG PO (08:40)
[2017-12-08] MEDS: Losartan Potassium 50 MG Tablet PO ×2 (08:41→20:15)
[2017-12-08] MEDS: HYDROCHLOROTHIAZIDE 12.5 MG CAPSULE PO (08:41)
[2017-12-08] MEDS: Metoprolol Tartrate 25 MG Tablet 12.5 MG PO ×2 (08:42→20:15)
--- NOTE | 2017-12-08 10:10 | NURSING ---
Pt had had jello and juice for breakfast. Pt has been drinking water all morning since she was told she could have clear liquids until 1100 since her surgery was not supposed to be until 1315. This nurse talked with Noa ledezma in whom talked with Dr. Mcdonald. Pt will be coming back to floor and surgery will be done later on today per Noa.
--- NOTE | 2017-12-08 10:14 | NURSING ---
Pt scheduled for surgery today per Dr Arellano for excision of hematoma left leg. Dr Arellano states patient will most likely have a wound VAC post op.
--- NOTE | 2017-12-08 11:24 | CASEMGMT ---
RN CM Note. Per Sheyla Jovel, wound nurse-anticipate pt will need wound vac on discharge. Attempted to see pt, however she is in surgery. Pt has [facility] insurance. Referral to Cyndy Hanna LPN with [facility].Sarwat GAVIRIAN RN ACM
--- NOTE | 2017-12-08 13:57 | CASEMGMT ---
Second attempt to complete RN CM assessment. Pt has not returned to floor yet. Sarwat BSN RN ACM
--- NOTE | 2017-12-08 14:28 | PCM.IMDPSTOP ---
Immediate Post-Op Note Date of Procedure: 12/08/17 Primary Surgeon/Physician: Regis Arellano manufacturing quality engineer: None Pre-Operative Diagnosis: 1. Traumatic hematoma left lower anteromedial leg. 2. nursing home used of 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 therapy for atrial fibrillation. Post-Operative Diagnosis: Same. Surgery/Procedure Performed:: Surgical preparation left lower anteromedial leg with incision and drainage and excisional debridement traumatic hematoma (60 cm2). Description of Surgical Findings:: The patient is a 77 year old F who bumped her left leg on the edge of her bed at home on 11/25/17. She sustained a traumatic hematoma. She is on Coumadin for atrial fibrillation. She became concerned because of increasing discoloration and pain and swelling and redness. She went to the ED for evaluation and was admitted. She was started on Cleocin and Levaquin. I was asked to evaluate this patient for surgical options for treatment. Today the patient underwent surgical preparation left lower anteromedial leg with incision and drainage and excisional debridement traumatic hematoma (60 cm2). Size of defect left lower anteromedial leg - 10 x 6 x 1.5 cm. Estimated Blood Loss: 100 ml. Specimen's removed: 1. Traumatic hematoma left lower anteromedial leg to Pathology and Microbiology. 2. MRSA Wound DNA by PCR. Drains: None. Type of Anesthesia:: General - Admit VTE Documentation VTE Present on Admission: No - Patient is on Coumadin for atrial fibrillation. VTE Mechan Device Prophylaxis: SCD's VTE Pharm Prophylaxis ordered?: Yes
[2017-12-08 16:03] LABS: M R Staph aureus DNA By PCR Negative (Negative); Probe Check PASS; Specimen Processing Control PASS; Staph aureus DNA By PCR NEGATIVE (Negative)
--- NOTE | 2017-12-08 16:09 | NURSING ---
Back from surgery. Tolerating clears. ORdered dinner. Rates pain 8 out of 10. This nurse offered pain medication but pt denies at this time.
[2017-12-08] MEDS: 0.9% NaCl Peripheral Flush Adult/Peds IV ×2 (16:33→17:56)
[2017-12-08] MEDS: HYDROmorphone 1 MG/ML Syringe IV (16:33)
[2017-12-08] MEDS: Ondansetron 4 MG/2 ML Vial IV (17:56)
[2017-12-08] MEDS: Lactated Ringers 1,000 ML 60 ML IV (18:09)
--- NOTE | 2017-12-08 19:50 | PCM.OPRPT ---
Report of Operation Date of Procedure: 12/08/17 Pre-Operative Diagnosis: 1. Traumatic hematoma left lower anteromedial leg. 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 Post-Operative Diagnosis: Same. Surgery/Procedure Performed:: Surgical preparation left lower anteromedial leg with incision and drainage and excisional debridement traumatic hematoma (60 cm2). Description of Surgical Findings:: The patient is a 77 year old F who bumped her left leg on the edge of her bed at home on 11/25/17. She sustained a traumatic hematoma. She is on Coumadin for atrial fibrillation. She became concerned because of increasing discoloration and pain and swelling and redness. She went to the ED for evaluation and was admitted. She was started on Cleocin and Levaquin. I was asked to evaluate this patient for surgical options for treatment. Patient was informed of the risks and complications of the procedure including alternatives to surgery. These were discussed with the patient personally. Patient voices understanding and wishes to proceed. Size of defect left lower anteromedial leg - 10 x 6 x 1.5 cm. silk blocker: None Type of Anesthesia:: General Specimen's removed: 1. Traumatic hematoma left lower anteromedial leg to Pathology and Microbiology. 2. MRSA Wound DNA by PCR. Drains: None. Estimated Blood Loss (mL): 100 ml. Description of Procedure: Patient was taken to OR in supine position and was placed under general anesthesia. Her left leg was prepped and draped in the usual fashion. SCD's were placed for DVT prophylaxis. Perioperative antibiotics were given intravenously. Using xylocaine with epinephrine, the edges of the hematoma were infiltrated. After waiting 5 minutes for the anesthetic to take effect, I proceeded with incision and drainage of the hematoma. There was extension of the hematoma superiorly. Extended down to the tibia. Periosteum is still present on the tibia. A lot of fat necrosis was present. The hematoma did not appear grossly infected. Tissue was sent to Microbiology for culture and to Pathology for analysis to rule out carcinoma. MRSA Wound DNA by PCR was also done. The discolored nonviable skin was sharply excised and debrided. The underlying muscle and fascia were seen at the base of the wound. The fascia was inflamed yet viable. The muscle is also viable. The wound was irrigated with saline. Hemostasis was obtained with electrocautery. The size of the defect after incision and drainage and excisional debridement was 10 x 6 x 1.5 cm or 60 cm2. I then dressed the hematoma wound with Mepitel nonadherent dressing followed by Kerlix gauze with Betadine and then followed by a dry Kerlix gauze and a compression OLYA wrap. Patient tolerated the procedure well and was sent to PACU in satisfactory condition. She will be sent back upstairs for continued postop care. The VAC will be applied tomorrow. She will be sent home on antibiotics and pain medication. She will followup after discharge at the [facility]. Grafts/Implants Used: None. - Complications None. - Admit VTE Documentation VTE Present on Admission: No - Patient is on Coumadin for atrial fibrillation. VTE Mechan Device Prophylaxis: SCD's VTE Pharm Prophylaxis ordered?: Yes Code Visit Surgery Charges CPT - 34365 ICD-10 - S80.12xA, L03.116, Z79.01 43624 S80.12xA, L03.116, Z79.01
[2017-12-09 02:30] VITALS: BP 119/68; PULSE 66; RESP 16; TEMP 36.3; O2SAT 98
[2017-12-09 06:38] LABS: Hematocrit 35.6 % (37-47); Hemoglobin 11.7 g/dl (12.0-15.0); Mean Corp Hgb Conc 32.9 g/gl (32-36); Mean Corpuscular Hgb 30.3 pg (27.0-32.0); Mean Corpuscular Volume 92.2 fL (81-99); Mean Platelet Vol. 10.5 fl (6.2-12.0); Platelet Count 227 K/mm3 (150-450); RBC Distribution Width CV 14.2 % (11.6-14.6); RBC Distribution Width SD 47.2 fl (35.1-43.9); Red Blood Count 3.86 M/mm3 (4.2-5.4); White Blood Count 8.1 K/mm3 (4.4-11.0)
[2017-12-09 06:41] LABS: Scan Indicated on CBC? Y/N NO
[2017-12-09 06:51] LABS: Anion Gap 5 (5-15); BUN 17 mg/dL (7-18); BUN/Creat Ratio 22.4 RATIO (10-20); Calcium,Total 8.7 mg/dL (8.5-10.1); Chloride 106 mmol/L (98-107); Creatinine, Serum 0.76 mg/dL (0.55-1.02); EST Glomerular Filtration Rate 79 mL/min (>60); Est Glom Filt Rate - Afr Amer 95 mL/min (>60); Glucose 103 mg/dL (74-106); Prealbumin 17.7 mg/dL (20.0-40.0); Sodium Level 142 mmol/L (136-145)
--- NOTE | 2017-12-09 07:12 | PCM.PROGNOTE ---
Patient Problems: Active and Suspected Problems Hematoma of left lower extremity (Acute) Subjective: All events of the past 24 Hours have been reviewed Antibiotic day #3 clindamycin and Levaquin VS: Stable TMAX -afebrile since admission Lab: White blood cell count is once again normal at 8.1. Hemoglobin is stable at 11.7. Electrolytes are within normal limits and the BUN is 17 with a creatinine of 0. 7 6 which is stable. Micro: PCR done at the time of surgery is negative for staph aureus and negative for MRSA. Wound culture is pending. Subjective: She denies pain of the left lower extremity today. She had nausea postoperatively but this has resolved. She denies shortness of breath, chest pain, palpitations. Objective: PHYSICAL EXAM: GENERAL: alert, oriented X 3, Cooperative, NAD ORAL: moist mucosa, no mucosal lesions NECK: No JVD, supple, trachea midline LUNGS: CTA, symmetric chest expansion HEART: RRR, Normal S1 and S2, no rub, no gallop, no MM ABDOMEN: soft, NT, ND, BS present, no guarding with palpation EXTREMITIES: no edema, no cyanosis, no calf tenderness SKIN: no rashes. Will examine the wound today when the dressing is taken down by the wound care nurse.........if it is oozing may hold off on restarting Coumadin for 1 day.....HGB is still stable post-op NEUROLOGIC: no focal neurologic deficits PSYCH: appropriate, normal affect, pleasant - Physical Exam Vital Signs Temp Pulse Resp BP Pulse Ox 97.4 F L 66 16 119/68 98 12/09/17 02:30 12/09/17 02:30 12/09/17 02:30 12/09/17 02:30 12/09/17 02:30 Oxygen Delivery Method Room Air Weight: 180 lb 5.41 oz Body Mass Index (BMI) 29.0 Intake and Output for Last 24 Hours 12/07/17 12/08/17 12/09/17 23:59 23:59 23:59 Intake Total 1176 / 1347 1318 / 1318 Output Total 1200 / 1200 Balance 1176 / 1347 118 / 118 Laboratory Tests Past 24 Hrs 12/08/17 12/09/17 12/09/17 Unknown 05:54 05:54 WBC 8.1 RBC 3.86 L Hgb 11.7 L Hct 35.6 L MCV 92.2 MCH 30.3 MCHC 32.9 RDW 14.2 RDW Differential 47.2 H Plt Count 227 MPV 10.5 Sodium 142 Potassium 4.0 Chloride 106 Carbon Dioxide 31.0 Anion Gap 5 BUN 17 Creatinine 0.76 Estim Creat Clear Calc 45.50 Est GFR (MDRD) Af Amer 95 Est GFR (MDRD) Non-Af 79 BUN/Creatinine Ratio 22.4 H Glucose 103 Calcium 8.7 Prealbumin 17.7 L S.aureus Protein A PCR NEGATIVE MRSA (PCR) Negative Medical Necessity - Tobacco Use Smoking Status: Former smoker Assessment/Plan All Active Problems Hematoma of left lower extremity (Acute) Institution of sotalol therapy (Acute) Impressions 1. Infected? hematoma distal left lower extremity 2. Chronic anticoagulation with warfarin with a current INR of 2.3. Coumadin is on hold. I discussed with Dr. Arellano and he is okay with proceeding with surgery for drainage of the hematoma today. 3. Paroxysmal atrial fibrillation-status post radiofrequency ablation 4. Hypertension-controlled 5. Hyperlipidemia The PCR for SA and MRSA is negative. She has been AF since admission and the WBC and diff are normal. Will check an ESR and a CRP today. D/W Dr. Arellano whether it is OK to de-escalate antibiotics....... cultures and Gram stain are pending. Check PT/INR and ESR and CRP today Possible DC later today if no significant bleeding with the dressing change and the placement of the wound vac Code Visit Inpatient E&M: 29555 [facility] Hosp L2
[2017-12-09 08:21] LABS: CRP 4.78 mg/L (0.0-3.0)
[2017-12-09 09:03] LABS: Erythrocyte Sedimentation Rate 20 mm/hr (0-30)
[2017-12-09 09:15] VITALS: BP 104/50; PULSE 72; RESP 16; TEMP 36.6; O2SAT 97
[2017-12-09] MEDS: Magnesium Oxide 400 MG Tablet 200 MG PO (09:25)
[2017-12-09] MEDS: Ascorbic Acid 500 MG Tablet 1000 MG PO (09:26)
[2017-12-09] MEDS: levoFLOXacin 500 MG Tablet PO (09:26)
[2017-12-09 09:47] LABS: International Normalized Ratio 2.1; Prothrombin Time (Protime)PT. 23.8 SECONDS (11.7-14.9)
[2017-12-09] MEDS: Lactated Ringers 1,000 ML 60 ML IV (10:41)
[2017-12-09] MEDS: oxyCODONE 5 MG Tablet PO (11:57)
--- NOTE | 2017-12-09 12:55 | NURSING ---
wound photo: left medial lower leg
[2017-12-09 13:30] VITALS: BP 103/56; PULSE 75; RESP 16; TEMP 36.6; O2SAT 97
--- NOTE | 2017-12-09 14:30 | CASEMGMT ---
BUD SALTER Face to Face with patient for initial transition planning/care coordination assessment. RN GAETANO introduced self and role at [facility]. Patient resting in bed, alert and oriented. Patient willing to participate in assessment and is able to answer all questions appropriately. Care providers, pharmacy, and demographics verified. See link attached. Pt to discharge home with [facility] services for wound vac care & dressing changes. HHC set up with [facility]. Pt states she has no further needs or concerns at this time. CM to follow for discharge planning needs that may arise. Disposition Plan: Pt to discharge home with [facility], family support and follow-up plans in place. Roderick WARD RN CM
--- NOTE | 2017-12-09 14:57 | PN.SURG_ITS ---
Patient Problems: Active and Suspected Problems Hematoma of left lower extremity (Acute) Subjective: Postop #1 Patient is resting comfortably. VAC applied today. - Physical Exam General: Alert, Oriented x3 HEENT: PERRLA, EOMI Oral: Moist Mucosa Neck: Supple Abdomen: Soft, Non-Distended Skin: Ulcer/ Wound - wound left amteromedial leg is clean. No bleeding noted. VAC applied. Neurological: Cranial nerves II-XII grossly intact Psych/Mental Status: Normal Affect, Appropriate Vital Signs Temp Pulse Resp BP Pulse Ox 97.8 F 75 16 103/56 L 97 12/09/17 13:30 12/09/17 13:30 12/09/17 13:30 12/09/17 13:30 12/09/17 13:30 Oxygen Delivery Method Room Air Weight: 180 lb 5.41 oz Body Mass Index (BMI) 29.0 Intake and Output for Last 24 Hours 12/07/17 12/08/17 12/09/17 23:59 23:59 23:59 Intake Total 1176 / 1347 2393 / 2393 Output Total 1750 / 1750 Balance 1176 / 1347 643 / 643 Microbiology Past 72 Hours 12/08/17 Unknown Gram Stain - Final Tissue - Leg, Left Wound Culture - Preliminary No growth-Final to follow Laboratory Tests Past 24 Hrs 12/08/17 12/09/17 12/09/17 Unknown 05:54 05:54 WBC 8.1 RBC 3.86 L Hgb 11.7 L Hct 35.6 L MCV 92.2 MCH 30.3 MCHC 32.9 RDW 14.2 RDW Differential 47.2 H Plt Count 227 MPV 10.5 ESR PT INR Sodium 142 Potassium 4.0 Chloride 106 Carbon Dioxide 31.0 Anion Gap 5 BUN 17 Creatinine 0.76 Estim Creat Clear Calc 45.50 Est GFR (MDRD) Af Amer 95 Est GFR (MDRD) Non-Af 79 BUN/Creatinine Ratio 22.4 H Glucose 103 Calcium 8.7 C-React Prot Ext Range Prealbumin 17.7 L S.aureus Protein A PCR NEGATIVE MRSA (PCR) Negative 12/09/17 12/09/17 12/09/17 05:54 05:54 08:20 WBC RBC Hgb Hct MCV MCH MCHC RDW RDW Differential Plt Count MPV ESR 20 PT 23.8 H INR 2.1 Sodium Potassium Chloride Carbon Dioxide Anion Gap BUN Creatinine Estim Creat Clear Calc Est GFR (MDRD) Af Amer Est GFR (MDRD) Non-Af BUN/Creatinine Ratio Glucose Calcium C-React Prot Ext Range 4.78 H Prealbumin S.aureus Protein A PCR MRSA (PCR) Medical Necessity - Tobacco Use Smoking Status: Former smoker Assessment/Plan All Active Problems Hematoma of left lower extremity (Acute) Institution of sotalol therapy (Acute) 1. Traumatic hematoma left anteromedial leg with cellulitis. 2. retirement use if IV anticoagulation for atrial fibrillation. 3. s/p surgical preparation left lower anteromedial leg with incision and drainage and excisional debridement traumatic hematoma (60 cm2). Cultures negative thus far. Will send home on Levaquin for a week. VAC in place. To be changed three times per week at 150 mmHg continuous suction. Prealbumin little low at 17.7. Encourage nutritional supplementation with protein to help the healing process. Ok for discharge from my standpoint. Followup at [facility] 12/28/17 at 800am. If there is a plateau in the healing process, can proceed with delayed closure with skin grafting. Wrote scripts for Percocet for pain (40 tabs) and Valium for spasm (20 tabs).
--- NOTE | 2017-12-09 15:44 | PCM.DC ---
- Discharge Diagnoses Current Active Problems: Current Active and Chronic Problems Hematoma of left lower extremity (Acute) You will use the following diet at home:: Other - Resume previous diet Your food should be the consistency of: Regular Your liquids should be the consistency of: Regular/Thin Discharge Activity: Return to Normal Activity, May not drive while taking narcotic pain medications. Call your doctor if you observe: Fever of 101 or Higher, Numbness or Tingling, Inability to have a bowel movement, Uncontrolled pain Additional Instructions: Antibiotics can sometimes cause diarrhea. If you have more than 3 bowel movements a day please call your primary care physician for advice. You can resume your Coumadin today. Dr. Ruvalcaba would like to see you in the wound center on Thursday 12/28. Call [phone] for an appt. Pending Tests on Discharge: final wound culture Allergies/Adverse Reactions: Allergies No Known Allergies Allergy (Verified 12/07/17 12:38) Medications to take at Discharge Losartan Potassium [Cozaar] 50 mg PO BID 06/29/14 Warfarin [Coumadin] 4 mg PO QODAY 06/29/14 Ascorbic Acid [Vitamin C] 1,000 mg PO DAILY 10/28/16 Magnesium 200 mg PO DAILY 10/28/16 Vitamin A 10,000 unit PO DAILY 10/28/16 Hydrochlorothiazide 12.5 mg PO DAILY 12/07/17 Metoprolol Tartrate [Lopressor (beta nely)] 12.5 mg PO BID 12/07/17 Warfarin [Coumadin] 3 mg PO QODAY 12/07/17 levoFLOXacin tablet [Levaquin tablet] 500 mg PO DAILY 12/07/17 Acetaminophen [Tylenol Tablet] 650 mg PO Q6H PRN PRN tablet 12/09/17 Diazepam [Valium] 5 mg PO TID PRN PRN 7 Days #20 tab 12/09/17 Oxycodone HCl/Acetaminophen [Percocet 5/325] 1 - 2 tab PO 4X/DAY PRN PRN 5 Days #40 tab 12/09/17 The following prescriptions were given: Diazepam [Valium] 5 mg PO TID PRN PRN 7 Days #20 tab PRN Reason: Spasms Oxycodone HCl/Acetaminophen [Percocet 5/325] 1 - 2 tab PO 4X/DAY PRN PRN 5 Days #40 tab PRN Reason: Pain Primary Care Physician: Yaya Brandt Chi, MD [Primary Care Provider] - Please follow up with your Primary Care Physician in: 1-2 weeks Test Results: Test results from this visit will be discussed in further detail at your follow-up appointment, if applicable. Please Follow Up With: Regis Arellano MD When: Thursday 12/28 call for an appt Proposed Discharge Date: 12/09/17
--- NOTE | 2017-12-09 15:52 | DCINST_ITS ---
- Discharge Diagnoses Current Active Problems: Current Active and Chronic Problems Hematoma of left lower extremity (Acute) You will use the following diet at home:: Other - Resume previous diet Your food should be the consistency of: Regular Your liquids should be the consistency of: Regular/Thin Discharge Activity: Return to Normal Activity, May not drive while taking narcotic pain medications. Call your doctor if you observe: Fever of 101 or Higher, Numbness or Tingling, Inability to have a bowel movement, Uncontrolled pain Additional Instructions: Antibiotics can sometimes cause diarrhea. If you have more than 3 bowel movements a day please call your primary care physician for advice. You can resume your Coumadin today. Dr. Ruvalcaba would like to see you in the wound center on Thursday 12/28. Call [phone] for an appt. Pending Tests on Discharge: final wound culture Allergies/Adverse Reactions: Allergies No Known Allergies Allergy (Verified 12/07/17 12:38) Medications to take at Discharge Losartan Potassium [Cozaar] 50 mg PO BID 06/29/14 Warfarin [Coumadin] 4 mg PO QODAY 06/29/14 Ascorbic Acid [Vitamin C] 1,000 mg PO DAILY 10/28/16 Magnesium 200 mg PO DAILY 10/28/16 Vitamin A 10,000 unit PO DAILY 10/28/16 Hydrochlorothiazide 12.5 mg PO DAILY 12/07/17 Metoprolol Tartrate [Lopressor (beta nely)] 12.5 mg PO BID 12/07/17 Warfarin [Coumadin] 3 mg PO QODAY 12/07/17 levoFLOXacin tablet [Levaquin tablet] 500 mg PO DAILY 12/07/17 Acetaminophen [Tylenol Tablet] 650 mg PO Q6H PRN PRN tablet 12/09/17 Diazepam [Valium] 5 mg PO TID PRN PRN 7 Days #20 tab 12/09/17 Oxycodone HCl/Acetaminophen [Percocet 5/325] 1 - 2 tab PO 4X/DAY PRN PRN 5 Days #40 tab 12/09/17 The following prescriptions were given: Diazepam [Valium] 5 mg PO TID PRN PRN 7 Days #20 tab PRN Reason: Spasms Oxycodone HCl/Acetaminophen [Percocet 5/325] 1 - 2 tab PO 4X/DAY PRN PRN 5 Days #40 tab PRN Reason: Pain Primary Care Physician: Yaya Brandt Chi, MD [Primary Care Provider] - Please follow up with your Primary Care Physician in: 1-2 weeks Test Results: Test results from this visit will be discussed in further detail at your follow- up appointment, if applicable. Please Follow Up With: Regis Arellano MD When: Thursday 12/28 call for an appt Proposed Discharge Date: 12/09/17
--- NOTE | 2017-12-09 15:56 | DS.PCM_ITS ---
Discharge Date and Diagnosis Date of Admission: 12/07/17 Date of Discharge: 12/09/17 - Primary Discharge Diagnosis Active and Suspected Problems Hematoma of left lower extremity (Acute) - Secondary Discharge Diagnosis Chronic Problems History of cardiac radiofrequency ablation (RFA) (Chronic) Chronic anticoagulation (Chronic) with warfarin Paroxysmal atrial fibrillation (Chronic) Hyperlipidemia (Chronic) Benign hypertension (Chronic) Hospital Course and Treatment Imaging Results: Clinical Impression(s) from Imaging Studies Lower Extremity CT 12/08/17 05:00 IMPRESSION: 3 cm well-circumscribed subcutaneous soft tissue mass anterior medial aspect of the lower leg likely representing a hematoma, in view of the history of trauma. Small amount of subcutaneous soft tissue fluid medial aspect of the lower leg and adjacent to the medial malleolus. Electronically Signed: Bahman Seay MD at 5:49 EDT , Service support , Laboratory Results - last 24 hr 12/08/17 12/09/17 12/09/17 Unknown 05:54 05:54 WBC 8.1 RBC 3.86 L Hgb 11.7 L Hct 35.6 L MCV 92.2 MCH 30.3 MCHC 32.9 RDW 14.2 RDW Differential 47.2 H Plt Count 227 MPV 10.5 ESR PT INR Sodium 142 Potassium 4.0 Chloride 106 Carbon Dioxide 31.0 Anion Gap 5 BUN 17 Creatinine 0.76 Estim Creat Clear Calc 45.50 Est GFR (MDRD) Af Amer 95 Est GFR (MDRD) Non-Af 79 BUN/Creatinine Ratio 22.4 H Glucose 103 Calcium 8.7 C-React Prot Ext Range Prealbumin 17.7 L S.aureus Protein A PCR NEGATIVE MRSA (PCR) Negative 12/09/17 12/09/17 12/09/17 05:54 05:54 08:20 WBC RBC Hgb Hct MCV MCH MCHC RDW RDW Differential Plt Count MPV ESR 20 PT 23.8 H INR 2.1 Sodium Potassium Chloride Carbon Dioxide Anion Gap BUN Creatinine Estim Creat Clear Calc Est GFR (MDRD) Af Amer Est GFR (MDRD) Non-Af BUN/Creatinine Ratio Glucose Calcium C-React Prot Ext Range 4.78 H Prealbumin S.aureus Protein A PCR MRSA (PCR) Dr. Regis Arellano-plastic surgery Operations: - - Incision and drainage with debridement of traumatic hematoma left lower anteromedial leg Procedures: Wound vac placement Summary of Care Provided: The patient is a 77-year-old female with a past medical history of paroxysmal atrial fibrillation, radiofrequency ablation, hyperlipidemia, hypertension and chronic anticoagulation with warfarin who presented to the emergency department at [facility] on 12/07/2017 who sustained a injury to her left lower extremity on November 25 resulting in a large hematoma. She apparently had been on multiple rounds of antibiotics with no improvement and Dr. Arellano was contacted. She was advised to come to the emergency room to be admitted for drainage of the hematoma. Vital signs at presentation to the emergency room were temperature 97.6, pulse 81, blood pressure 127/76, respiratory rate 16 and she was 99% saturated on room air. White blood cell count was normal at 6.5 with 71% neutrophils. Hemoglobin was 13 and the platelets were within normal limits. INR was therapeutic at 2.4. She was admitted to the hospital and consult was obtained with Dr. Arellano. She was continued on clindamycin and Levaquin by Dr. Arellano. Coumadin was placed on hold. She was taken to surgery on 12/08/2017 for incision and drainage with excisional debridement of traumatic hematoma of the left lower anteromedial leg. The size of the defect post surgery was 10 cm x 6 cm x 1.5 cm. Postoperatively she was transferred to a regular medical floor and the following morning a wound VAC was placed. Culture at the time of surgery had no growth. She was discharged home on 2017 with wound VAC in place. She was given prescriptions for diazepam and oxycodone by Dr. Arellano for wound VAC changes. She will follow-up with Dr. Brandt in 1-2 weeks and will follow up with Dr. Arellano on 12/28/2017 at the wound care center. Antibiotics were discontinued at discharge because she had been afebrile for the duration of her admission with a normal white blood cell count and an unremarkable differential. There was no sign of infection at the time of surgery. Discharge Activity: Return to Normal Activity, May not drive while taking narcotic pain medications. Call your doctor if you observe: Fever of 101 or Higher, Numbness or Tingling, Inability to have a bowel movement, Uncontrolled pain Home Medications: Medications to take at Discharge Losartan Potassium [Cozaar] 50 mg PO BID 06/29/14 Warfarin [Coumadin] 4 mg PO QODAY 06/29/14 Ascorbic Acid [Vitamin C] 1,000 mg PO DAILY 10/28/16 Magnesium 200 mg PO DAILY 10/28/16 Vitamin A 10,000 unit PO DAILY 10/28/16 Hydrochlorothiazide 12.5 mg PO DAILY 12/07/17 Metoprolol Tartrate [Lopressor (beta nely)] 12.5 mg PO BID 12/07/17 Warfarin [Coumadin] 3 mg PO QODAY 12/07/17 levoFLOXacin tablet [Levaquin tablet] 500 mg PO DAILY 12/07/17 Acetaminophen [Tylenol Tablet] 650 mg PO Q6H PRN PRN tablet 12/09/17 Diazepam [Valium] 5 mg PO TID PRN PRN 7 Days #20 tab 12/09/17 Oxycodone HCl/Acetaminophen [Percocet 5/325] 1 - 2 tab PO 4X/DAY PRN PRN 5 Days #40 tab 12/09/17 Following Prescrptions Were Given to Patient: Diazepam [Valium] 5 mg PO TID PRN PRN 7 Days #20 tab PRN Reason: Spasms Oxycodone HCl/Acetaminophen [Percocet 5/325] 1 - 2 tab PO 4X/DAY PRN PRN 5 Days #40 tab PRN Reason: Pain Primary Care Physician: Yaya Brandt Chi, MD [Primary Care Provider] - Please follow up with your Primary Care Physician in: 1-2 weeks Please Follow Up With: Regis Arellano MD When: Thursday 12/28 call for an appt Disposition: Home with Home Health Minutes spent on discharge:: 30 Patient Condition:: Good Medical Necessity - Tobacco Use Smoking Status: Former smoker Meaningful Use Info Meaningful Use Diagnoses (Choose all that apply): None applicable Code Visit Inpatient E&M: 54724 Disch Hosp
--- NOTE | 2017-12-09 17:50 | OP.PCM_ITS ---
Report of Operation Date of Procedure: 12/08/17 Pre-Operative Diagnosis: 1. Traumatic hematoma left lower anteromedial leg. 2. 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 Post-Operative Diagnosis: Same. Surgery/Procedure Performed:: Surgical preparation left lower anteromedial leg with incision and drainage and excisional debridement traumatic hematoma (60 cm2 ). Description of Surgical Findings:: The patient is a 77 year old F who bumped her left leg on the edge of her bed at home on 11/25/17. She sustained a traumatic hematoma. She is on Coumadin for atrial fibrillation. She became concerned because of increasing discoloration and pain and swelling and redness. She went to the ED for evaluation and was admitted. She was started on Cleocin and Levaquin. I was asked to evaluate this patient for surgical options for treatment. Patient was informed of the risks and complications of the procedure including alternatives to surgery. These were discussed with the patient personally. Patient voices understanding and wishes to proceed. Size of defect left lower anteromedial leg - 10 x 6 x 1.5 cm. fur stylist: None Type of Anesthesia:: General Specimen's removed: 1. Traumatic hematoma left lower anteromedial leg to Pathology and Microbiology. 2. MRSA Wound DNA by PCR. Drains: None. Estimated Blood Loss (mL): 100 ml. Description of Procedure: Patient was taken to OR in supine position and was placed under general anesthesia. Her left leg was prepped and draped in the usual fashion. SCD's were placed for DVT prophylaxis. Perioperative antibiotics were given intravenously. Using xylocaine with epinephrine, the edges of the hematoma were infiltrated. After waiting 5 minutes for the anesthetic to take effect, I proceeded with incision and drainage of the hematoma. There was extension of the hematoma superiorly. Extended down to the tibia. Periosteum is still present on the tibia. A lot of fat necrosis was present. The hematoma did not appear grossly infected. Tissue was sent to Microbiology for culture and to Pathology for analysis to rule out carcinoma. MRSA Wound DNA by PCR was also done. The discolored nonviable skin was sharply excised and debrided. The underlying muscle and fascia were seen at the base of the wound. The fascia was inflamed yet viable. The muscle is also viable. The wound was irrigated with saline. Hemostasis was obtained with electrocautery. The size of the defect after incision and drainage and excisional debridement was 10 x 6 x 1.5 cm or 60 cm2. I then dressed the hematoma wound with Mepitel nonadherent dressing followed by Kerlix gauze with Betadine and then followed by a dry Kerlix gauze and a compression OLYA wrap. Patient tolerated the procedure well and was sent to PACU in satisfactory condition. She will be sent back upstairs for continued postop care. The VAC will be applied tomorrow. She will be sent home on antibiotics and pain medication. She will followup after discharge at the Wound Center. Grafts/Implants Used: None. - Complications None. - Admit VTE Documentation VTE Present on Admission: No - Patient is on Coumadin for atrial fibrillation. VTE Mechan Device Prophylaxis: SCD's VTE Pharm Prophylaxis ordered?: Yes Code Visit Surgery Charges CPT - 61714 ICD-10 - S80.12xA, L03.116, Z79.01 34058 S80.12xA, L03.116, Z79.01
== END 2017-12-09 18:05 | disposition home health service (06) | DRG 571 ==
LOC: ED 17:16 → MS2 18:15
PROVIDERS: Surgery; Emergency Provider Emergency Medicine; Family Provider Family Medicine Geriatric Medicine; PCP Family Medicine Geriatric Medicine; Visit Provider Internal Medicine
PROC: 0JBP0ZZ Excision of Left Lower Leg Subcutaneous Tissue and Fascia, Open Approach (ICD-10-PCS; principal; 2017-12-08 13:00)
DX: S80.12XA Contusion of left lower leg, initial encounter (principal); L03.116 Cellulitis of left lower limb; W22.03XA Walked into furniture, initial encounter; Y92.003 Bedroom of unspecified non-institutional (private) residence as the place of occurrence of the external cause; Z79.01 Long term (current) use of 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s; I10 Essential (primary) hypertension; Z87.891 Personal history of nicotine dependence; I48.0 Paroxysmal atrial fibrillation; E78.5 Hyperlipidemia, unspecified
CPT/HCPCS: 36415; 73701; 80048; 84134; 85025; 85027; 85610; 85652; 86140; 87070; 87075; 87102; 87205; 87206; 87640; 88304; 88305; 93005; 99284; J7120; Q9967; A4216; J2405

== ENCOUNTER 2018-01-11 08:15 | Outpatient (RCR) | payer MEDICARE, OTHER, SELFPAY ==
[2017-12-28 08:41] VITALS: BP 138/91; PULSE 72; RESP 20; TEMP 36.3; BMI 29.2
--- NOTE | 2017-12-28 17:21 | PCM.WC.PN ---
Type of Wound Date of Service: 12/28/17 Chief Complaint: Open surgical hematoma wound left lower anteromedial leg. History of Wound: Surgery 12/08/17 - Surgical preparation left lower anteromedial leg with incision and drainage and excisional debridement traumatic hematoma (60 cm2). Wound care - VAC. Operative culture - negative. Was treated perioperatively with Levaquin and has finished them. Encourage nutritional supplementation with protein to help the healing process. Today she denies any fever. Her appetite is good. Progress of Wound: Rercent surgery from 12/08/17. - Physical Exam Vital Signs Temp Pulse Resp BP 97.3 F L 72 20 H 138/91 H 12/28/17 08:41 12/28/17 08:41 12/28/17 08:41 12/28/17 08:41 Wound Measurements and Assessment WC - Nurse 1 - General Ulcer Measurement Start: 12/28/17 08:12 Freq: Status: Active Protocol: Activity Type Activity Date Activity User E-Sign Co-Sign Detail Recorded Client Recorded Date Recorded By Document 12/28/17 08:41 DL [id number] 12/28/17 09:04 DL 12/28/17 08:41 Wound Center Nurse 1 [Ulcer Assessment] #1 L Med Lower Leg -Current Size (cm) - Length 8.8 -Current Size (cm) - Width 4.8 -Current Size (cm) - Depth 1.4 -Total Square Cm 42.24 -Photo Taken Yes -Classification - Thickness Full Thickness without Exposed Support Structure -Exudate Type Serosanguineous -Wound Margin Distinct, Outline Attached -Granulation Amt Large (67-100%) -Granulation Quality Red -Necrosis Amt Small (1-33%) -Necrotic Tissue Type Adherent Slough -Structure Exposed N/A -Texture (Karen-wound Skin Appearance) Localized Edema Scarring -Moisture (Karen-wound Skin Appearance No Abnormality ) -Color (Karen-wound Skin Appearance) No Abnormality -Temperature (Karen-wound Skin No Abnormality Appearance) (Pt Warm) -Ulcer Cleansing Rinsed/ Irrigated with Saline -Foul Odor after Cleansing No -Anesthetic Used 4% Lidocaine Solution [Edema Assessment] -Left Calf (cm) 38 -Left Ankle (cm) 22 WC - Nurse 2 - General Ulcer CM Notes Start: 12/28/17 08:12 Freq: Status: Active Protocol: Activity Type Activity Date Activity User E-Sign Co-Sign Detail Recorded Client Recorded Date Recorded By Document 12/28/17 09:23 JF [id number] 12/28/17 09:25 12/28/17 09:23 Wound Center Nurse 2 [Procedure/Treatment] #1 L [facility] Lower Leg -Time 09:24 -Correct Patient Yes -Correct Side, Site, Position Yes -Correct Procedure Yes -Procedure Performed Yes -Type of Procedure Debridement -Clinical Debridement Subcutaneous -Post Debridement Size (cm) - Length 8.8 -Post Debridement Size (cm) - Width 4.9 -Post Debridement Size (cm) - Depth 1.5 -Total Square Cm 43.12 -Wound/Ulcer Outcome Not Healed -Ulcer Cleansing Rinsed/ Irrigated with Saline -Foul Odor after Cleansing No -Bioengineered Tissue No -Bleeding Controlled with Pressure -Treatment Response Procedure Tolerated Well [See Physician Procedure note for Specifics] Pain Scale: 0-10 Numeric [Pain] -Is Patient Pain Free? Yes Debridement Note Post-Debridement Measurements/Treatment WC - Nurse 2 - General Ulcer CM Notes Start: 12/28/17 08:12 Freq: Status: Active Protocol: Activity Type Activity Date Activity User E-Sign Co-Sign Detail Recorded Client Recorded Date Recorded By Document 12/28/17 09:23 [id number] [id number] 12/28/17 09:25 12/28/17 09:23 Wound Center Nurse 2 #1 L [facility] Lower Leg -Time 09:24 -Correct Patient Yes -Correct Side, Site, Position Yes -Correct Procedure Yes -Procedure Performed Yes -Type of Procedure Debridement -Clinical Debridement Subcutaneous -Post Debridement Size (cm) - Length 8.8 -Post Debridement Size (cm) - Width 4.9 -Post Debridement Size (cm) - Depth 1.5 -Total Square Cm 43.12 -Wound/Ulcer Outcome Not Healed -Ulcer Cleansing Rinsed/ Irrigated with Saline -Foul Odor after Cleansing No -Bioengineered Tissue No -Bleeding Controlled with Pressure -Treatment Response Procedure Tolerated Well Pain Scale: 0-10 Numeric Is Patient Pain Free? Yes Wound debrided: #1 Left lower anteromedial leg. Laterality: Left Wound Grade/Stage: 2. Type of Debridement: Excisional debridement Anesthesia Used: 4% Lidocaine Solution Depth: Down to and including healthy tissue, in the subcutaneous layer Percentage of wound debrided: 100 Instrument Used: 7mm curette Tissue Removed: subcutaneous tissue. Severity: Fat Layer Exposed Amount of bleeding with debridement: Mild Bleeding Controlled with: Pressure Patient tolerated procedure well Assessment/Plan Assessment: 1. Traumatic hematoma left lower anteromedial leg. 2. 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 3. s/p surgical preparation left lower anteromedial leg with incision and drainage and excisional debridement traumatic hematoma (60 cm2). Plan: Continue the VAC. Keep left leg elevated when sitting. She is finished with her Levaquin. The operative culture was negative. Encourage nutritional supplementation with protein to help the healing process. Renewed her Percocet for pain (30 tabs). Followup 2 weeks.
[2018-01-11 08:29] VITALS: BP 138/80; PULSE 74; RESP 16; TEMP 36.2; BMI 29.2
--- NOTE | 2018-01-11 22:51 | PCM.WC.PN ---
Type of Wound Date of Service: 01/11/18 Chief Complaint: Nonhealing hematoma ulcer left lower anteromedial leg. History of Wound: Surgery 12/08/17 - Surgical preparation left lower anteromedial leg with incision and drainage and excisional debridement traumatic hematoma (60 cm2). Wound care - VAC. Operative culture - negative. Was treated perioperatively with Levaquin and has finished them. Encourage nutritional supplementation with protein to help the healing process. Today she denies any fever. Her appetite is good. Progress of Wound: Improved. - Physical Exam Vital Signs Temp Pulse Resp BP 97.1 F L 74 16 138/80 H 01/11/18 08:29 01/11/18 08:29 01/11/18 08:29 01/11/18 08:29 Wound Measurements and Assessment WC - Nurse 1 - General Ulcer Measurement Start: 12/28/17 08:12 Freq: Status: Active Protocol: Activity Type Activity Date Activity User E-Sign Co-Sign Detail Recorded Client Recorded Date Recorded By Document 01/11/18 08:29 [id number] 01/11/18 08:32 01/11/18 08:29 Wound Center Nurse 1 [Ulcer Assessment] #1 L Med Lower Leg -Current Size (cm) - Length 7.8 -Current Size (cm) - Width 4 -Current Size (cm) - Depth 0.2 -Total Square Cm 31.2 -Date of Last Picture (Recall this 01/11/18 field) -Photo Taken Yes -Epithelialization Small 1-33% -Tunneling No -Undermining/Tunneling No -Circular Undermining No -Exudate Amt Small (1-33%) -Exudate Type Serosanguineous -Wound Margin Distinct, Outline Attached -Granulation Amt Large (67-100%) -Granulation Quality [place] Red -Slough/Fibrin Yes -Necrosis Amt None Present (0 %) -Necrotic Tissue Type Adherent Slough -Structure Exposed None/Limited to Skin Breakdown -Texture (Karen-wound Skin Appearance) No Abnormality Assessed -Color (Karen-wound Skin Appearance) No Abnormality Assessed -Temperature (Karen-wound Skin No Abnormality Appearance) (Pt Warm) -Tenderness on Palpation (Karen-wound No Skin Appearance) -Ulcer Cleansing Wound Cleanser -Foul Odor after Cleansing No -Anesthetic Used 5% Lidocaine Gel [Edema Assessment] -Lower Limb Edema Present NA WC - Nurse 2 - General Ulcer CM Notes Start: 12/28/17 08:12 Freq: Status: Active Protocol: Activity Type Activity Date Activity User E-Sign Co-Sign Detail Recorded Client Recorded Date Recorded By Document 01/11/18 08:47 [id number] 01/11/18 08:48 01/11/18 08:47 Wound Center Nurse 2 [Procedure/Treatment] #1 L Med Lower Leg -Time 08:47 -Correct Patient Yes -Correct Side, Site, Position Yes -Correct Procedure Yes -Procedure Performed Yes -Type of Procedure Debridement -Clinical Debridement Subcutaneous -Post Debridement Size (cm) - Length 7.8 -Post Debridement Size (cm) - Width 4.1 -Post Debridement Size (cm) - Depth 0.2 -Total Square Cm 31.98 -Wound/Ulcer Outcome Not Healed -Ulcer Cleansing Rinsed/ Irrigated with Saline -Foul Odor after Cleansing No -Bioengineered Tissue No -Bleeding Controlled with Pressure -Treatment Response Procedure Tolerated Well [See Physician Procedure note for Specifics] Pain Scale: 0-10 Numeric [Pain] -Is Patient Pain Free? Yes Debridement Note Post-Debridement Measurements/Treatment - Nurse 2 - General Ulcer CM Notes Start: 12/28/17 08:12 Freq: Status: Active Protocol: Activity Type Activity Date Activity User E-Sign Co-Sign Detail Recorded Client Recorded Date Recorded By Document 12/28/17 09:23 [id number] [id number] 12/28/17 09:25 Document 01/11/18 08:47 [id number] 01/11/18 08:48 12/28/17 01/11/18 09:23 08:47 Wound Center Nurse 2 #1 L [facility] Lower Leg -Time 09:24 08:47 -Correct Patient Yes Yes -Correct Side, Site, Position Yes Yes -Correct Procedure Yes Yes -Procedure Performed Yes Yes -Type of Procedure Debridement Debridement -Clinical Debridement Subcutaneous Subcutaneous -Post Debridement Size (cm) - Length 8.8 7.8 -Post Debridement Size (cm) - Width 4.9 4.1 -Post Debridement Size (cm) - Depth 1.5 0.2 -Total Square Cm 43.12 31.98 -Wound/Ulcer Outcome Not Healed Not Healed -Ulcer Cleansing Rinsed/ Rinsed/ Irrigated with Irrigated with Saline Saline -Foul Odor after Cleansing No No -Bioengineered Tissue No No -Bleeding Controlled with Pressure Pressure -Treatment Response Procedure Procedure Tolerated Well Tolerated Well Pain Scale: 0-10 Numeric Is Patient Pain Free? Yes Yes Wound debrided: #1 Left lower anteromedial leg. Laterality: Left Wound Grade/Stage: 2. Type of Debridement: Excisional debridement Anesthesia Used: 4% Lidocaine Solution Depth: Down to and including healthy tissue, in the subcutaneous layer Percentage of wound debrided: 100 Instrument Used: 5mm curette Tissue Removed: subcutaneous tissue. Severity: Fat Layer Exposed Amount of bleeding with debridement: Mild Bleeding Controlled with: Pressure Patient tolerated procedure well Assessment/Plan Assessment: 1. Traumatic hematoma left lower anteromedial leg. 2. 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 3. s/p surgical preparation left lower anteromedial leg with incision and drainage and excisional debridement traumatic hematoma (60 cm2). 4. Nonhealing hematoma ulcer left lower anteromedial leg. Plan: Stop the VAC. Begin Silver dressing changes daily. Use a Tubigrip for compression. Keep left leg elevated when sitting. She is finished with her Levaquin. The operative culture was negative. Encourage nutritional supplementation with protein to help the healing process. The ulcer has improved. Discussed further operative debridement with delayed closure with skin grafting. She will think about it and let me know at her next visit. Followup 3 weeks.
== END 2018-01-22 23:59 ==
LOC: WC 08:15
PROVIDERS: Family Provider Family Medicine Geriatric Medicine; PCP Family Medicine Geriatric Medicine; Visit Provider Surgery
DX: S80.12XA Contusion of left lower leg, initial encounter (principal); X58.XXXA Exposure to other specified factors, initial encounter; I48.91 Unspecified atrial fibrillation
CPT/HCPCS: 11042; 11045; 97605; 99213; G0463

== ENCOUNTER 2018-02-08 08:00 | Outpatient (RCR) | payer MEDICARE, OTHER, SELFPAY ==
[2018-01-23 01:38] VITALS: BP 138/80; PULSE 74; RESP 16; TEMP 36.2
[2018-02-08 09:43] VITALS: BP 143/92; PULSE 91; RESP 16; TEMP 36.5
--- NOTE | 2018-02-08 22:59 | PN.PCM_ITS ---
Type of Wound Date of Service: 02/08/18 Chief Complaint: Nonhealing hematoma ulcer left lower anteromedial leg. History of Wound: Surgery 12/08/17 - Surgical preparation left lower anteromedial leg with incision and drainage and excisional debridement traumatic hematoma (60 cm2). Wound care - VAC. Operative culture - negative. Was treated perioperatively with Levaquin and has finished them. Encourage nutritional supplementation with protein to help the healing process. Today she denies any fever. Her appetite is good. Progress of Wound: Improved. - Physical Exam Vital Signs Temp Pulse Resp BP 97.7 F L 91 16 143/92 H 02/08/18 09:43 02/08/18 09:43 02/08/18 09:43 02/08/18 09:43 Wound Measurements and Assessment - Nurse 1 - General Ulcer Measurement Start: 02/08/18 09:38 Freq: Status: Active Protocol: Activity Type Activity Date Activity User E-Sign Co-Sign Detail Recorded Client Recorded Date Recorded By Document 02/08/18 09:43 [id number] 02/08/18 09:45 02/08/18 09:43 Wound Center Nurse 1 [Ulcer Assessment] #1 L Med Lower Leg -Combined with other wound No -Current Size (cm) - Length 7.2 -Current Size (cm) - Width 3.3 -Current Size (cm) - Depth 0.1 -Total Square Cm 23.76 -Date of Last Picture (Recall this 02/08/18 field) -Photo Taken Yes -Epithelialization Small 1-33% -Tunneling No -Undermining/Tunneling No -Circular Undermining No -Exudate Amt Medium (34-66%) -Exudate Type Serosanguineous -Wound Margin Distinct, Outline Attached -Granulation Amt Large (67-100%) -Granulation Quality [place] Red -Slough/Fibrin Yes -Necrosis Amt None Present (0 %) -Texture (Karen-wound Skin Appearance) No Abnormality Assessed -Moisture (Karen-wound Skin Appearance No Abnormality ) Assessed -Color (Karen-wound Skin Appearance) No Abnormality Assessed -Temperature (Karen-wound Skin No Abnormality Appearance) (Pt Warm) -Tenderness on Palpation (Karen-wound No Skin Appearance) -Ulcer Cleansing Not Cleansed -Foul Odor after Cleansing No -Anesthetic Used 4% Lidocaine Solution [Edema Assessment] -Lower Limb Edema Present NA - Nurse 2 - General Ulcer CM Notes Start: 02/08/18 09:38 Freq: Status: Active Protocol: Activity Type Activity Date Activity User E-Sign Co-Sign Detail Recorded Client Recorded Date Recorded By Document 02/08/18 09:58 [id number] 02/08/18 09:59 TERRY 02/08/18 09:58 Wound Center Nurse 2 [Procedure/Treatment] #1 L Med Lower Leg -Time 09:58 -Correct Patient Yes -Correct Side, Site, Position Yes -Correct Procedure Yes -Procedure Performed Yes -Type of Procedure Debridement -Clinical Debridement Subcutaneous -Post Debridement Size (cm) - Length 7.3 -Post Debridement Size (cm) - Width 3.3 -Post Debridement Size (cm) - Depth 0.1 -Total Square Cm 24.09 -Wound/Ulcer Outcome Not Healed -Ulcer Cleansing Rinsed/ Irrigated with Saline -Foul Odor after Cleansing No -Bioengineered Tissue No -Bleeding Controlled with Pressure -Treatment Response Procedure Tolerated Well [See Physician Procedure note for Specifics] Pain Scale: 0-10 Numeric [Pain] -Is Patient Pain Free? Yes Debridement Note Post-Debridement Measurements/Treatment - Nurse 2 - General Ulcer CM Notes Start: 02/08/18 09:38 Freq: Status: Active Protocol: Activity Type Activity Date Activity User E-Sign Co-Sign Detail Recorded Client Recorded Date Recorded By Document 02/08/18 09:58 [id number] 02/08/18 09:59 TERRY 02/08/18 09:58 Wound Center Nurse 2 #1 L Med Lower Leg -Time 09:58 -Correct Patient Yes -Correct Side, Site, Position Yes -Correct Procedure Yes -Procedure Performed Yes -Type of Procedure Debridement -Clinical Debridement Subcutaneous -Post Debridement Size (cm) - Length 7.3 -Post Debridement Size (cm) - Width 3.3 -Post Debridement Size (cm) - Depth 0.1 -Total Square Cm 24.09 -Wound/Ulcer Outcome Not Healed -Ulcer Cleansing Rinsed/ Irrigated with Saline -Foul Odor after Cleansing No -Bioengineered Tissue No -Bleeding Controlled with Pressure -Treatment Response Procedure Tolerated Well Pain Scale: 0-10 Numeric Is Patient Pain Free? Yes Wound debrided: #1 Left lower anteromedial leg. Laterality: Left Wound Grade/Stage: 2. Type of Debridement: Excisional debridement Anesthesia Used: 4% Lidocaine Solution Depth: Down to and including healthy tissue, in the subcutaneous layer Percentage of wound debrided: 100 Instrument Used: 5mm curette Tissue Removed: subcutaneous tissue. Severity: Fat Layer Exposed Amount of bleeding with debridement: Mild Bleeding Controlled with: Pressure Patient tolerated procedure well Assessment/Plan Assessment: 1. Nonhealing hematoma ulcer left lower anteromedial leg. 2. snf used of 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 therapy for atrial fibrillation. 3. s/p surgical preparation left lower anteromedial leg with incision and drainage and excisional debridement traumatic hematoma (60 cm2). Plan: Continue Silver dressing changes daily. Use a Tubigrip for compression. Keep left leg elevated when sitting. She is finished with her Levaquin. The operative culture was negative. Encourage nutritional supplementation with protein to help the healing process. The ulcer has improved. Discussed further operative debridement with delayed closure with skin grafting. She will think about it and is a little hesitant about another anesthetic. but is hesitant about another anesthetic. Discussed with her that we can initially try a placental connective tissue graft here at the Wound Center. Will get insurance approval. Usually up to 10 grafts in a 12 week period can be applied. Followup 2 weeks with the Nurse Practitioner. Followup 3 weeks to see me. Followup 3 weeks.
== END 2018-02-21 23:59 ==
LOC: WC 08:00
PROVIDERS: Family Provider Family Medicine Geriatric Medicine; PCP Family Medicine Geriatric Medicine; Visit Provider Surgery
DX: S80.12XA Contusion of left lower leg, initial encounter (principal); X58.XXXA Exposure to other specified factors, initial encounter; I48.91 Unspecified atrial fibrillation; Z79.01 Long term (current) use of 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s
CPT/HCPCS: 11042; 11045

== ENCOUNTER 2018-03-15 10:30 | Outpatient (RCR) | payer MEDICARE, OTHER, SELFPAY ==
[2018-02-22 01:13] VITALS: BP 143/92; PULSE 91; RESP 16; TEMP 36.5
[2018-02-22 09:44] VITALS: BP 145/85; PULSE 67; RESP 16; TEMP 36.4
--- NOTE | 2018-02-23 08:56 | PCM.WC.PN ---
(1) Ulcer of left lower extremity with fat layer exposed Status: Acute Current Visit: Yes Code(s): L97.922 - Non-pressure chronic ulcer of unspecified part of left lower leg with fat layer exposed (2) Open wound of left lower extremity with complication Status: Chronic Current Visit: Yes Code(s): S81.802A - Unspecified open wound, left lower leg, initial encounter (3) Cellulitis of left leg Status: Acute Current Visit: No Code(s): L03.116 - Cellulitis of left lower limb (4) Chronic anticoagulation Status: Chronic Current Visit: No Code(s): Z79.01 - intermediate designer (current) use of 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s (5) Hematoma of left lower extremity Status: Acute Current Visit: No Code(s): S80.12XA - Contusion of left lower leg, initial encounter (6) Paroxysmal atrial fibrillation Status: Chronic Current Visit: No Code(s): I48.0 - Paroxysmal atrial fibrillation Type of Wound Date of Service: 02/22/18 Chief Complaint: Nonhealing hematoma ulcer left lower anteromedial leg. History of Wound: Surgery 12/08/17 - Surgical preparation left lower anteromedial leg with incision and drainage and excisional debridement traumatic hematoma (60 cm2). Wound care - VAC. Operative culture - negative. Was treated perioperatively with Levaquin and has finished them. Encourage nutritional supplementation with protein to help the healing process. Today she denies any fever. Her appetite is good. Progress of Wound: Improved. - Physical Exam Vital Signs Temp Pulse Resp BP 97.5 F L 67 16 145/85 H 02/22/18 09:44 02/22/18 09:44 02/22/18 09:44 02/22/18 09:44 General: Alert, Oriented x3 HEENT: PERRLA Oral: Moist Mucosa Lungs: Normal air movement Cardiovascular: Regular rate Extremities: No edema, Capillary Refill Less than 3 Seconds Skin: Ulcer/ Wound - Left lower extremity medial surface Wound Measurements and Assessment WC - Nurse 1 - General Ulcer Measurement Start: 02/22/18 09:44 Freq: Status: Active Protocol: Activity Type Activity Date Activity User E-Sign Co-Sign Detail Recorded Client Recorded Date Recorded By Document 02/22/18 09:44 TERRY [id number] 02/22/18 09:46 TERRY 02/22/18 09:44 Wound Center Nurse 1 [Ulcer Assessment] #1 L Med Lower Leg -Combined with other wound No -Current Size (cm) - Length 5.9 -Current Size (cm) - Width 2.7 -Current Size (cm) - Depth 0.1 -Total Square Cm 15.93 -Photo Taken No -Epithelialization Medium 34-66% -Tunneling No -Undermining/Tunneling No -Circular Undermining No -Exudate Amt Small (1-33%) -Exudate Type Serosanguineous -Wound Margin Flat & Intact -Granulation Amt Large (67-100%) -Granulation Quality Red -Slough/Fibrin Yes -Necrosis Amt Small (1-33%) -Necrotic Tissue Type Adherent Slough -Structure Exposed N/A -Texture (Karen-wound Skin Appearance) Assessed Localized Edema Scarring -Moisture (Karen-wound Skin Appearance Assessed ) Dry/Scaly -Color (Karen-wound Skin Appearance) Assessed -Temperature (Karen-wound Skin No Abnormality Appearance) (Pt Warm) -Tenderness on Palpation (Karen-wound No Skin Appearance) -Ulcer Cleansing Rinsed/ Irrigated with Saline -Foul Odor after Cleansing No -Anesthetic Used 4% Lidocaine Solution [Edema Assessment] -Lower Limb Edema Present Yes -Left Calf (cm) 39.8 -Left Ankle (cm) 22.8 WC - Nurse 2 - General Ulcer CM Notes Start: 02/22/18 09:44 Freq: Status: Active Protocol: Activity Type Activity Date Activity User E-Sign Co-Sign Detail Recorded Client Recorded Date Recorded By Document 02/22/18 10:17 TERRY [id number] 02/22/18 10:19 TERRY 02/22/18 10:17 Wound Center Nurse 2 [Procedure/Treatment] #1 L [facility] Lower Leg -Time 10:18 -Correct Patient Yes -Correct Side, Site, Position Yes -Correct Procedure Yes -Procedure Performed Yes -Type of Procedure Debridement -Clinical Debridement Subcutaneous -Post Debridement Size (cm) - Length 6 -Post Debridement Size (cm) - Width 3 -Post Debridement Size (cm) - Depth 0.1 -Total Square Cm 18 -Wound/Ulcer Outcome Not Healed -Ulcer Cleansing Rinsed/ Irrigated with Saline -Foul Odor after Cleansing No -Bioengineered Tissue Yes -Type of bioengineered Tissue EPIFIX -Expiration Date 10/23/22 -Product Lot Number [id number] -Percent Used 100 -Saline Lot Number [id number] -Bleeding Controlled with Pressure -Treatment Response Procedure Tolerated Well [See Physician Procedure note for Specifics] Pain Scale: 0-10 Numeric [Pain] -Is Patient Pain Free? Yes Musculoskeletal: No Tenderness to Palpation of Joints or Extremities Neurological: Neuro grossly intact Psych/Mental Status: Normal Affect, Appropriate Debridement Note Post-Debridement Measurements/Treatment WC - Nurse 2 - General Ulcer CM Notes Start: 02/22/18 09:44 Freq: Status: Active Protocol: Activity Type Activity Date Activity User E-Sign Co-Sign Detail Recorded Client Recorded Date Recorded By Document 02/22/18 10:17 TERRY [id number] 02/22/18 10:19 TERRY 02/22/18 10:17 Wound Center Nurse 2 #1 L Med Lower Leg -Time 10:18 -Correct Patient Yes -Correct Side, Site, Position Yes -Correct Procedure Yes -Procedure Performed Yes -Type of Procedure Debridement -Clinical Debridement Subcutaneous -Post Debridement Size (cm) - Length 6 -Post Debridement Size (cm) - Width 3 -Post Debridement Size (cm) - Depth 0.1 -Total Square Cm 18 -Wound/Ulcer Outcome Not Healed -Ulcer Cleansing Rinsed/ Irrigated with Saline -Foul Odor after Cleansing No -Bioengineered Tissue Yes -Type of bioengineered Tissue EPIFIX -Expiration Date 10/23/22 -Product Lot Number [id number] -Percent Used 100 -Saline Lot Number [id number] -Bleeding Controlled with Pressure -Treatment Response Procedure Tolerated Well Pain Scale: 0-10 Numeric Is Patient Pain Free? Yes Wound debrided: Left lower leg medial surface Laterality: Left Type of Debridement: Excisional debridement Anesthesia Used: 5% Lidocaine Gel Depth: in the subcutaneous layer Percentage of wound debrided: 100 Instrument Used: 7mm curette Tissue Removed: Subcutaneous tissue and slough. Severity: Fat Layer Exposed Amount of bleeding with debridement: None Bleeding Controlled with: Pressure Patient tolerated procedure well Assessment/Plan Active Problems Ulcer of left lower extremity with fat layer exposed (Acute) Open wound of left lower extremity with complication (Chronic) Assessment: 1. Nonhealing hematoma ulcer left lower anteromedial leg. 2. 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 3. s/p surgical preparation left lower anteromedial leg with incision and drainage and excisional debridement traumatic hematoma (60 cm2). Plan: Epifix #1 was applied after subcutaneous debridement, it was then covered with a wound veil and saline, and secured with Steri-Strips. 100% of the epi fix was used with 0% waist. Patient tolerated procedure well. Use a Tubigrip for compression. Keep left leg elevated when sitting. She is finished with her Levaquin. The operative culture was negative. Encourage nutritional supplementation with protein to help the healing process. The ulcer has improved. Discussed further operative debridement with delayed closure with skin grafting. She will think about it and is a little hesitant about another anesthetic. but is hesitant about another anesthetic. Discussed with her that we can initially try a placental connective tissue graft here at the Wound Center. Obtained insurance approval for epifix. Usually up to 10 grafts in a 12 week period can be applied. Follow up 1 week. Code Visit [id number]: [id number] Skin sub graft trnk/arm/leg
--- NOTE | 2018-02-23 09:02 | PN.PCM_ITS ---
(1) Ulcer of left lower extremity with fat layer exposed Status: Acute Current Visit: Yes Code(s): L97.922 - Non-pressure chronic ulcer of unspecified part of left lower leg with fat layer exposed (2) Open wound of left lower extremity with complication Status: Chronic Current Visit: Yes Code(s): S81.802A - Unspecified open wound, left lower leg, initial encounter (3) Cellulitis of left leg Status: Acute Current Visit: No Code(s): L03.116 - Cellulitis of left lower limb (4) Chronic anticoagulation Status: Chronic Current Visit: No Code(s): Z79.01 - emt intermediate (current) use of 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s (5) Hematoma of left lower extremity Status: Acute Current Visit: No Code(s): S80.12XA - Contusion of left lower leg, initial encounter (6) Paroxysmal atrial fibrillation Status: Chronic Current Visit: No Code(s): I48.0 - Paroxysmal atrial fibrillation Type of Wound Date of Service: 02/22/18 Chief Complaint: Nonhealing hematoma ulcer left lower anteromedial leg. History of Wound: Surgery 12/08/17 - Surgical preparation left lower anteromedial leg with incision and drainage and excisional debridement traumatic hematoma (60 cm2). Wound care - VAC. Operative culture - negative. Was treated perioperatively with Levaquin and has finished them. Encourage nutritional supplementation with protein to help the healing process. Today she denies any fever. Her appetite is good. Progress of Wound: Improved. - Physical Exam Vital Signs Temp Pulse Resp BP 97.5 F L 67 16 145/85 H 02/22/18 09:44 02/22/18 09:44 02/22/18 09:44 02/22/18 09:44 General: Alert, Oriented x3 HEENT: PERRLA Oral: Moist Mucosa Lungs: Normal air movement Cardiovascular: Regular rate Extremities: No edema, Capillary Refill Less than 3 Seconds Skin: Ulcer/ Wound - Left lower extremity medial surface Wound Measurements and Assessment WC - Nurse 1 - General Ulcer Measurement Start: 02/22/18 09:44 Freq: Status: Active Protocol: Activity Type Activity Date Activity User E-Sign Co-Sign Detail Recorded Client Recorded Date Recorded By Document 02/22/18 09:44 TERRY [id number] 02/22/18 09:46 TERRY 02/22/18 09:44 Wound Center Nurse 1 [Ulcer Assessment] #1 L Med Lower Leg -Combined with other wound No -Current Size (cm) - Length 5.9 -Current Size (cm) - Width 2.7 -Current Size (cm) - Depth 0.1 -Total Square Cm 15.93 -Photo Taken No -Epithelialization Medium 34-66% -Tunneling No -Undermining/Tunneling No -Circular Undermining No -Exudate Amt Small (1-33%) -Exudate Type Serosanguineous -Wound Margin Flat & Intact -Granulation Amt Large (67-100%) -Granulation Quality Red -Slough/Fibrin Yes -Necrosis Amt Small (1-33%) -Necrotic Tissue Type Adherent Slough -Structure Exposed N/A -Texture (Karen-wound Skin Appearance) Assessed Localized Edema Scarring -Moisture (Karen-wound Skin Appearance Assessed ) Dry/Scaly -Color (Karen-wound Skin Appearance) Assessed -Temperature (Karen-wound Skin No Abnormality Appearance) (Pt Warm) -Tenderness on Palpation (Karen-wound No Skin Appearance) -Ulcer Cleansing Rinsed/ Irrigated with Saline -Foul Odor after Cleansing No -Anesthetic Used 4% Lidocaine Solution [Edema Assessment] -Lower Limb Edema Present Yes -Left Calf (cm) 39.8 -Left Ankle (cm) 22.8 WC - Nurse 2 - General Ulcer CM Notes Start: 02/22/18 09:44 Freq: Status: Active Protocol: Activity Type Activity Date Activity User E-Sign Co-Sign Detail Recorded Client Recorded Date Recorded By Document 02/22/18 10:17 TERRY [id number] 02/22/18 10:19 TERRY 02/22/18 10:17 Wound Center Nurse 2 [Procedure/Treatment] #1 L [facility] Lower Leg -Time 10:18 -Correct Patient Yes -Correct Side, Site, Position Yes -Correct Procedure Yes -Procedure Performed Yes -Type of Procedure Debridement -Clinical Debridement Subcutaneous -Post Debridement Size (cm) - Length 6 -Post Debridement Size (cm) - Width 3 -Post Debridement Size (cm) - Depth 0.1 -Total Square Cm 18 -Wound/Ulcer Outcome Not Healed -Ulcer Cleansing Rinsed/ Irrigated with Saline -Foul Odor after Cleansing No -Bioengineered Tissue Yes -Type of bioengineered Tissue EPIFIX -Expiration Date 10/23/22 -Product Lot Number [id number] -Percent Used 100 -Saline Lot Number [id number] -Bleeding Controlled with Pressure -Treatment Response Procedure Tolerated Well [See Physician Procedure note for Specifics] Pain Scale: 0-10 Numeric [Pain] -Is Patient Pain Free? Yes Musculoskeletal: No Tenderness to Palpation of Joints or Extremities Neurological: Neuro grossly intact Psych/Mental Status: Normal Affect, Appropriate Debridement Note Post-Debridement Measurements/Treatment WC - Nurse 2 - General Ulcer CM Notes Start: 02/22/18 09:44 Freq: Status: Active Protocol: Activity Type Activity Date Activity User E-Sign Co-Sign Detail Recorded Client Recorded Date Recorded By Document 02/22/18 10:17 TERRY [id number] 02/22/18 10:19 TERRY 02/22/18 10:17 Wound Center Nurse 2 #1 L Med Lower Leg -Time 10:18 -Correct Patient Yes -Correct Side, Site, Position Yes -Correct Procedure Yes -Procedure Performed Yes -Type of Procedure Debridement -Clinical Debridement Subcutaneous -Post Debridement Size (cm) - Length 6 -Post Debridement Size (cm) - Width 3 -Post Debridement Size (cm) - Depth 0.1 -Total Square Cm 18 -Wound/Ulcer Outcome Not Healed -Ulcer Cleansing Rinsed/ Irrigated with Saline -Foul Odor after Cleansing No -Bioengineered Tissue Yes -Type of bioengineered Tissue EPIFIX -Expiration Date 10/23/22 -Product Lot Number [id number] -Percent Used 100 -Saline Lot Number [id number] -Bleeding Controlled with Pressure -Treatment Response Procedure Tolerated Well Pain Scale: 0-10 Numeric Is Patient Pain Free? Yes Wound debrided: Left lower leg medial surface Laterality: Left Type of Debridement: Excisional debridement Anesthesia Used: 5% Lidocaine Gel Depth: in the subcutaneous layer Percentage of wound debrided: 100 Instrument Used: 7mm curette Tissue Removed: Subcutaneous tissue and slough. Severity: Fat Layer Exposed Amount of bleeding with debridement: None Bleeding Controlled with: Pressure Patient tolerated procedure well Assessment/Plan Active Problems Ulcer of left lower extremity with fat layer exposed (Acute) Open wound of left lower extremity with complication (Chronic) Assessment: 1. Nonhealing hematoma ulcer left lower anteromedial leg. 2. emt intermediate used of 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 therapy for atrial fibrillation. 3. s/p surgical preparation left lower anteromedial leg with incision and drainage and excision al debridement traumatic hematoma (60 cm2). Plan: Epifix #1 was applied after subcutaneous debridement, it was then covered with a wound veil and saline, and secured with Steri-Strips. 100% of the epi fix was used with 0% waist. Patient tolerated procedure well. Use a Tubigrip for compression. Keep left leg elevated when sitting. She is finished with her Levaquin. The operative culture was negative. Encourage nutritional supplementation with protein to help the healing process. The ulcer has improved. Discussed further operative debridement with delayed closure with skin grafting. She will think about it and is a little hesitant about another anesthetic. but is hesitant about another anesthetic. Discussed with her that we can initially try a placental connective tissue graft here at the Wound Center. Obtained insurance approval for epifix. Usually up to 10 grafts in a 12 week period can be applied. Follow up 1 week. Code Visit 150xxx-[id number]: [id number] Skin sub graft trnk/arm/leg
[2018-03-01 09:35] VITALS: BP 131/75; PULSE 71; RESP 16; TEMP 36.8
--- NOTE | 2018-03-01 22:26 | PN.PCM_ITS ---
Type of Wound Date of Service: 03/01/18 Chief Complaint: Nonhealing hematoma ulcer left lower anteromedial leg. History of Wound: Surgery 12/08/17 - Surgical preparation left lower anteromedial leg with incision and drainage and excisional debridement traumatic hematoma (60 cm2). Wound care - Epifix placental connective tissue graft. Operative culture - negative. Was treated perioperatively with Levaquin and has finished them. Encourage nutritional supplementation with protein to help the healing process. Today she denies any fever. Her appetite is good. She has had Epifix placement number 1 last week. Progress of Wound: Improved. - Physical Exam Vital Signs Temp Pulse Resp BP 98.2 F 71 16 131/75 H 03/01/18 09:35 03/01/18 09:35 03/01/18 09:35 03/01/18 09:35 Wound Measurements and Assessment WC - Nurse 1 - General Ulcer Measurement Start: 02/22/18 09:44 Freq: Status: Active Protocol: Activity Type Activity Date Activity User E-Sign Co-Sign Detail Recorded Client Recorded Date Recorded By Document 03/01/18 09:35 DV [id number] 03/01/18 09:37 DV 03/01/18 09:35 Wound Center Nurse 1 [Ulcer Assessment] #1 L Med Lower Leg -Combined with other wound No -Current Size (cm) - Length 4.4 -Current Size (cm) - Width 2.2 -Current Size (cm) - Depth 0.1 -Total Square Cm 9.68 -Photo Taken No -Epithelialization Small 1-33% -Tunneling No -Undermining/Tunneling No -Circular Undermining No -Classification - Thickness Full Thickness without Exposed Support Structure -Exudate Amt Large (67-100%) -Exudate Type Serosanguineous -Wound Margin Flat & Intact -Granulation Amt Medium (34-66%) -Granulation Quality Hyper- granulation Red -Slough/Fibrin Yes -Necrosis Amt Medium (34-66%) -Necrotic Tissue Type Adherent Slough -Structure Exposed None/Limited to Skin Breakdown -Texture (Karen-wound Skin Appearance) Assessed Scarring -Moisture (Karen-wound Skin Appearance Assessed ) Weeping -Color (Karen-wound Skin Appearance) No Abnormality Assessed -Temperature (Karen-wound Skin No Abnormality Appearance) (Pt Warm) -Ulcer Cleansing Rinsed/ Irrigated with Saline -Foul Odor after Cleansing No -Anesthetic Used 4% Lidocaine Solution [Edema Assessment] -Lower Limb Edema Present No -Left Calf (cm) 39.8 -Left Ankle (cm) 23.7 - Nurse 2 - General Ulcer CM Notes Start: 02/22/18 09:44 Freq: Status: Active Protocol: Activity Type Activity Date Activity User E-Sign Co-Sign Detail Recorded Client Recorded Date Recorded By Document 03/01/18 09:45 [id number] 03/01/18 09:49 03/01/18 09:45 Wound Center Nurse 2 [Procedure/Treatment] #1 L Med Lower Leg -Time 09:47 -Correct Patient Yes -Correct Side, Site, Position Yes -Correct Procedure Yes -Procedure Performed Yes -Type of Procedure Debridement -Clinical Debridement Subcutaneous -Post Debridement Size (cm) - Length 4.5 -Post Debridement Size (cm) - Width 2.2 -Post Debridement Size (cm) - Depth 0.1 -Total Square Cm 9.90 -Wound/Ulcer Outcome Not Healed -Ulcer Cleansing Rinsed/ Irrigated with Saline -Foul Odor after Cleansing No -Bioengineered Tissue Yes -Type of bioengineered Tissue EPIFIX -Expiration Date 10/23/22 -Product Lot Number [id number] -Percent Used 100 -Saline Lot Number [id number] -Bleeding Controlled with Pressure -Treatment Response Procedure Tolerated Well [See Physician Procedure note for Specifics] Pain Scale: 0-10 Numeric [Pain] -Is Patient Pain Free? Yes Debridement Note Post-Debridement Measurements/Treatment - Nurse 2 - General Ulcer CM Notes Start: 02/22/18 09:44 Freq: Status: Active Protocol: Activity Type Activity Date Activity User E-Sign Co-Sign Detail Recorded Client Recorded Date Recorded By Document 02/22/18 10:17 [id number] 02/22/18 10:19 Document 03/01/18 09:45 [id number] 03/01/18 09:49 02/22/18 03/01/18 10:17 09:45 Wound Center Nurse 2 #1 L Med Lower Leg -Time 10:18 09:47 -Correct Patient Yes Yes -Correct Side, Site, Position Yes Yes -Correct Procedure Yes Yes -Procedure Performed Yes Yes -Type of Procedure Debridement Debridement -Clinical Debridement Subcutaneous Subcutaneous -Post Debridement Size (cm) - Length 6 4.5 -Post Debridement Size (cm) - Width 3 2.2 -Post Debridement Size (cm) - Depth 0.1 0.1 -Total Square Cm 18 9.90 -Wound/Ulcer Outcome Not Healed Not Healed -Ulcer Cleansing Rinsed/ Rinsed/ Irrigated with Irrigated with Saline Saline -Foul Odor after Cleansing No No -Bioengineered Tissue Yes Yes -Type of bioengineered Tissue EPIFIX EPIFIX -Expiration Date 10/23/22 10/23/22 -Product Lot Number [id number] -Percent Used 100 100 -Saline Lot Number [id number] -Bleeding Controlled with Pressure Pressure -Treatment Response Procedure Procedure Tolerated Well Tolerated Well Pain Scale: 0-10 Numeric Is Patient Pain Free? Yes Yes Wound debrided: #1 Left lower anteromedial leg. Laterality: Left Wound Grade/Stage: 2. Type of Debridement: Excisional debridement Anesthesia Used: 4% Lidocaine Solution Depth: Down to and including healthy tissue, in the subcutaneous layer Percentage of wound debrided: 100 Instrument Used: 5mm curette Tissue Removed: subcutaneous tissue. Severity: Fat Layer Exposed Amount of bleeding with debridement: Mild Bleeding Controlled with: Pressure Patient tolerated procedure well, - - I used Epifix placental connective tissue graft, placement #2. Product Lot Number - [id number]. 100% used. Saline Lot Number - [id number]. Assessment/Plan Assessment: 1. Nonhealing hematoma ulcer left lower anteromedial leg. 2. senior living used of 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 therapy for atrial fibrillation. 3. s/p surgical preparation left lower anteromedial leg with incision and drainage and excisional debridement traumatic hematoma (60 cm2). Plan: . After subcutaneous debridement and saline, Epifix placement #2 was done today. It was covered with a wound veil and secured with Steri-strips. Patient tolerated procedure well. Use a Tubigrip for compression. Keep left leg elevated when sitting. She is finished with her Levaquin. The operative culture was negative. Encourage nutritional supplementation with protein to help the healing process. Followup one week with Birgit, the Nurse Practitioner. Followup 2 weeks to see me.
[2018-03-08 09:35] VITALS: BP 137/77; PULSE 82; RESP 18; TEMP 36.2
--- NOTE | 2018-03-08 14:04 | PCM.WC.PN ---
(1) Ulcer of left lower extremity with fat layer exposed Status: Acute Current Visit: Yes Code(s): L97.922 - Non-pressure chronic ulcer of unspecified part of left lower leg with fat layer exposed (2) Chronic anticoagulation Status: Chronic Current Visit: Yes Code(s): Z79.01 - group home (current) use of 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s (3) Hematoma of left lower extremity Status: Acute Current Visit: No Code(s): S80.12XA - Contusion of left lower leg, initial encounter (4) Paroxysmal atrial fibrillation Status: Chronic Current Visit: No Code(s): I48.0 - Paroxysmal atrial fibrillation Type of Wound Date of Service: 03/08/18 Chief Complaint: Nonhealing hematoma ulcer left lower anteromedial leg. History of Wound: Surgery 12/08/17 - Surgical preparation left lower anteromedial leg with incision and drainage and excisional debridement traumatic hematoma (60 cm2). Wound care - Epifix placental connective tissue graft. Operative culture - negative. Was treated perioperatively with Levaquin and has finished them. Encourage nutritional supplementation with protein to help the healing process. Today she denies any fever. Her appetite is good. She has had Epifix placement number 2 last week. Progress of Wound: Improved. - Physical Exam Vital Signs Temp Pulse Resp BP 97.1 F L 82 18 137/77 H 03/08/18 09:35 03/08/18 09:35 03/08/18 09:35 03/08/18 09:35 General: Alert, Oriented x3 HEENT: Atraumatic Extremities: No edema Skin: Ulcer/ Wound - Left lower leg. Wound Measurements and Assessment WC - Nurse 1 - General Ulcer Measurement Start: 02/22/18 09:44 Freq: Status: Active Protocol: Activity Type Activity Date Activity User E-Sign Co-Sign Detail Recorded Client Recorded Date Recorded By Document 03/08/18 09:35 DV [id number] 03/08/18 09:37 DV 03/08/18 09:35 Wound Center Nurse 1 [Ulcer Assessment] #1 L Med Lower Leg -Combined with other wound No -Current Size (cm) - Length 4.0 -Current Size (cm) - Width 2.0 -Current Size (cm) - Depth 0.1 -Total Square Cm 8.00 -Photo Taken No -Epithelialization Small 1-33% -Tunneling No -Undermining/Tunneling No -Circular Undermining No -Exudate Amt Large (67-100%) -Exudate Type Serosanguineous -Wound Margin Flat & Intact -Granulation Amt Medium (34-66%) -Granulation Quality Red -Slough/Fibrin Yes -Necrosis Amt Medium (34-66%) -Necrotic Tissue Type Adherent Slough -Structure Exposed None/Limited to Skin Breakdown -Texture (Karen-wound Skin Appearance) No Abnormality Assessed -Moisture (Karen-wound Skin Appearance No Abnormality ) Assessed -Color (Karen-wound Skin Appearance) No Abnormality Assessed -Temperature (Karen-wound Skin No Abnormality Appearance) (Pt Warm) -Ulcer Cleansing Rinsed/ Irrigated with Saline -Foul Odor after Cleansing No -Anesthetic Used 4% Lidocaine Solution - Nurse 2 - General Ulcer CM Notes Start: 02/22/18 09:44 Freq: Status: Active Protocol: Activity Type Activity Date Activity User E-Sign Co-Sign Detail Recorded Client Recorded Date Recorded By Document 03/08/18 10:16 TERRY [id number] 03/08/18 10:21 TERRY 03/08/18 10:16 Wound Center Nurse 2 [Procedure/Treatment] -Time 10:17 -Correct Patient Yes -Correct Side, Site, Position Yes -Correct Procedure Yes -Procedure Performed Yes -Type of Procedure Debridement -Clinical Debridement Subcutaneous -Post Debridement Size (cm) - Length 4.1 -Post Debridement Size (cm) - Width 2.5 -Post Debridement Size (cm) - Depth 0.1 -Total Square Cm 10.25 -Wound/Ulcer Outcome Not Healed -Ulcer Cleansing Rinsed/ Irrigated with Saline -Foul Odor after Cleansing No -Bioengineered Tissue Yes -Type of bioengineered Tissue EPIFIX -Expiration Date 11/22/22 -Product Lot Number [id number] -Percent Used 100 -Saline Lot Number [id number] -Bleeding Controlled with Pressure -Treatment Response Procedure Tolerated Well [See Physician Procedure note for Specifics] Pain Scale: 0-10 Numeric [Pain] -Is Patient Pain Free? Yes Musculoskeletal: No Tenderness to Palpation of Joints or Extremities Neurological: Neuro grossly intact Psych/Mental Status: Normal Affect, Appropriate Debridement Note Post-Debridement Measurements/Treatment WC - Nurse 2 - General Ulcer CM Notes Start: 02/22/18 09:44 Freq: Status: Active Protocol: Activity Type Activity Date Activity User E-Sign Co-Sign Detail Recorded Client Recorded Date Recorded By Document 02/22/18 10:17 [id number] 02/22/18 10:19 Document 03/01/18 09:45 [id number] 03/01/18 09:49 Document 03/08/18 10:16 TERRY [id number] 03/08/18 10:21 02/22/18 03/01/18 03/08/18 10:17 09:45 10:16 Wound Center Nurse 2 #1 L Med Lower Leg -Time 10: 09:47 10:17 -Correct Patient Yes Yes Yes -Correct Side, Site, Position Yes Yes Yes -Correct Procedure Yes Yes Yes -Procedure Performed Yes Yes Yes -Type of Procedure Debridement Debridement Debridement -Clinical Debridement Subcutaneous Subcutaneous Subcutaneous -Post Debridement Size (cm) - Length 6 4.5 4.1 -Post Debridement Size (cm) - Width 3 2.2 2.5 -Post Debridement Size (cm) - Depth 0.1 0.1 0.1 -Total Square Cm 18 9.90 10.25 -Wound/Ulcer Outcome Not Healed Not Healed Not Healed -Ulcer Cleansing Rinsed/ Rinsed/ Rinsed/ Irrigated with Irrigated with Irrigated with Saline Saline Saline -Foul Odor after Cleansing No No No -Bioengineered Tissue Yes Yes Yes -Type of bioengineered Tissue EPIFIX EPIFIX EPIFIX -Expiration Date 10/23/22 10/23/22 11/22/22 -Product Lot Number [id number] -Percent Used 100 100 100 -Saline Lot Number [id number] -Bleeding Controlled with Pressure Pressure Pressure -Treatment Response Procedure Procedure Procedure Tolerated Well Tolerated Well Tolerated Well Pain Scale: 0-10 Numeric Is Patient Pain Free? Yes Yes Yes Wound debrided: left lower leg Laterality: Left Type of Debridement: Excisional debridement Anesthesia Used: 4% Lidocaine Solution Depth: Down to and including healthy tissue, in the subcutaneous layer Percentage of wound debrided: 100 Instrument Used: 7mm curette Tissue Removed: Subcutaneous tissue and slough Severity: Limited To Skin Breakdown Amount of bleeding with debridement: Mild Bleeding Controlled with: Pressure Patient tolerated procedure well Assessment/Plan Active Problems Ulcer of left lower extremity with fat layer exposed (Acute) Chronic anticoagulation (Chronic) Assessment: 1. Nonhealing hematoma ulcer left lower anteromedial leg. 2. group home used of 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 therapy for atrial fibrillation. 3. s/p surgical preparation left lower anteromedial leg with incision and drainage and excisional debridement traumatic hematoma (60 cm2). Plan: After subcutaneous debridement and saline, Epifix placement #3 was done today. It was covered with a wound veil and secured with Steri-strips. Patient tolerated procedure well. Use a Tubigrip for compression. Keep left leg elevated when sitting. She is finished with her Levaquin. The operative culture was negative. Encourage nutritional supplementation with protein to help the healing process. Followup one week. Code Visit 150xxx-152xx: 00417 Skin sub graft trnk/arm/leg
--- NOTE | 2018-03-08 14:08 | PN.PCM_ITS ---
(1) Ulcer of left lower extremity with fat layer exposed Status: Acute Current Visit: Yes Code(s): L97.922 - Non-pressure chronic ulcer of unspecified part of left lower leg with fat layer exposed (2) Chronic anticoagulation Status: Chronic Current Visit: Yes Code(s): Z79.01 - group home (current) use of 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s (3) Hematoma of left lower extremity Status: Acute Current Visit: No Code(s): S80.12XA - Contusion of left lower leg, initial encounter (4) Paroxysmal atrial fibrillation Status: Chronic Current Visit: No Code(s): I48.0 - Paroxysmal atrial fibrillation Type of Wound Date of Service: 03/08/18 Chief Complaint: Nonhealing hematoma ulcer left lower anteromedial leg. History of Wound: Surgery 12/08/17 - Surgical preparation left lower anteromedial leg with incision and drainage and excisional debridement traumatic hematoma (60 cm2). Wound care - Epifix placental connective tissue graft. Operative culture - negative. Was treated perioperatively with Levaquin and has finished them. Encourage nutritional supplementation with protein to help the healing process. Today she denies any fever. Her appetite is good. She has had Epifix placement number 2 last week. Progress of Wound: Improved. - Physical Exam Vital Signs Temp Pulse Resp BP 97.1 F L 82 18 137/77 H 03/08/18 09:35 03/08/18 09:35 03/08/18 09:35 03/08/18 09:35 General: Alert, Oriented x3 HEENT: Atraumatic Extremities: No edema Skin: Ulcer/ Wound - Left lower leg. Wound Measurements and Assessment WC - Nurse 1 - General Ulcer Measurement Start: 02/22/18 09:44 Freq: Status: Active Protocol: Activity Type Activity Date Activity User E-Sign Co-Sign Detail Recorded Client Recorded Date Recorded By Document 03/08/18 09:35 DV [id number] 03/08/18 09:37 DV 03/08/18 09:35 Wound Center Nurse 1 [Ulcer Assessment] #1 L Med Lower Leg -Combined with other wound No -Current Size (cm) - Length 4.0 -Current Size (cm) - Width 2.0 -Current Size (cm) - Depth 0.1 -Total Square Cm 8.00 -Photo Taken No -Epithelialization Small 1-33% -Tunneling No -Undermining/Tunneling No -Circular Undermining No -Exudate Amt Large (67-100%) -Exudate Type Serosanguineous -Wound Margin Flat & Intact -Granulation Amt Medium (34-66%) -Granulation Quality Red -Slough/Fibrin Yes -Necrosis Amt Medium (34-66%) -Necrotic Tissue Type Adherent Slough -Structure Exposed None/Limited to Skin Breakdown -Texture (Karen-wound Skin Appearance) No Abnormality Assessed -Moisture (Karen-wound Skin Appearance No Abnormality ) Assessed -Color (Karen-wound Skin Appearance) No Abnormality Assessed -Temperature (Karen-wound Skin No Abnormality Appearance) (Pt Warm) -Ulcer Cleansing Rinsed/ Irrigated with Saline -Foul Odor after Cleansing No -Anesthetic Used 4% Lidocaine Solution - Nurse 2 - General Ulcer CM Notes Start: 02/22/18 09:44 Freq: Status: Active Protocol: Activity Type Activity Date Activity User E-Sign Co-Sign Detail Recorded Client Recorded Date Recorded By Document 03/08/18 10:16 TERRY [id number] 03/08/18 10:21 TERRY 03/08/18 10:16 Wound Center Nurse 2 [Procedure/Treatment] -Time 10:17 -Correct Patient Yes -Correct Side, Site, Position Yes -Correct Procedure Yes -Procedure Performed Yes -Type of Procedure Debridement -Clinical Debridement Subcutaneous -Post Debridement Size (cm) - Length 4.1 -Post Debridement Size (cm) - Width 2.5 -Post Debridement Size (cm) - Depth 0.1 -Total Square Cm 10.25 -Wound/Ulcer Outcome Not Healed -Ulcer Cleansing Rinsed/ Irrigated with Saline -Foul Odor after Cleansing No -Bioengineered Tissue Yes -Type of bioengineered Tissue EPIFIX -Expiration Date 11/22/22 -Product Lot Number [id number] -Percent Used 100 -Saline Lot Number [id number] -Bleeding Controlled with Pressure -Treatment Response Procedure Tolerated Well [See Physician Procedure note for Specifics] Pain Scale: 0-10 Numeric [Pain] -Is Patient Pain Free? Yes Musculoskeletal: No Tenderness to Palpation of Joints or Extremities Neurological: Neuro grossly intact Psych/Mental Status: Normal Affect, Appropriate Debridement Note Post-Debridement Measurements/Treatment WC - Nurse 2 - General Ulcer CM Notes Start: 02/22/18 09:44 Freq: Status: Active Protocol: Activity Type Activity Date Activity User E-Sign Co-Sign Detail Recorded Client Recorded Date Recorded By Document 02/22/18 10:17 [id number] 02/22/18 10:19 Document 03/01/18 09:45 [id number] 03/01/18 09:49 Document 03/08/18 10:16 TERRY [id number] 03/08/18 10:21 02/22/18 03/01/18 03/08/18 10:17 09:45 10:16 Wound Center Nurse 2 #1 L Med Lower Leg -Time 10: 09:47 10:17 -Correct Patient Yes Yes Yes -Correct Side, Site, Position Yes Yes Yes -Correct Procedure Yes Yes Yes -Procedure Performed Yes Yes Yes -Type of Procedure Debridement Debridement Debridement -Clinical Debridement Subcutaneous Subcutaneous Subcutaneous -Post Debridement Size (cm) - Length 6 4.5 4.1 -Post Debridement Size (cm) - Width 3 2.2 2.5 -Post Debridement Size (cm) - Depth 0.1 0.1 0.1 -Total Square Cm 18 9.90 10.25 -Wound/Ulcer Outcome Not Healed Not Healed Not Healed -Ulcer Cleansing Rinsed/ Rinsed/ Rinsed/ Irrigated with Irrigated with Irrigated with Saline Saline Saline -Foul Odor after Cleansing No No No -Bioengineered Tissue Yes Yes Yes -Type of bioengineered Tissue EPIFIX EPIFIX EPIFIX -Expiration Date 10/23/22 10/23/22 11/22/22 -Product Lot Number [id number] -Percent Used 100 100 100 -Saline Lot Number [id number] -Bleeding Controlled with Pressure Pressure Pressure -Treatment Response Procedure Procedure Procedure Tolerated Well Tolerated Well Tolerated Well Pain Scale: 0-10 Numeric Is Patient Pain Free? Yes Yes Yes Wound debrided: left lower leg Laterality: Left Type of Debridement: Excisional debridement Anesthesia Used: 4% Lidocaine Solution Depth: Down to and including healthy tissue, in the subcutaneous layer Percentage of wound debrided: 100 Instrument Used: 7mm curette Tissue Removed: Subcutaneous tissue and slough Severity: Limited To Skin Breakdown Amount of bleeding with debridement: Mild Bleeding Controlled with: Pressure Patient tolerated procedure well Assessment/Plan Active Problems Ulcer of left lower extremity with fat layer exposed (Acute) Chronic anticoagulation (Chronic) Assessment: 1. Nonhealing hematoma ulcer left lower anteromedial leg. 2. group home used of 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 therapy for atrial fibrillation. 3. s/p surgical preparation left lower anteromedial leg with incision and drainage and excisional debridement traumatic hematoma (60 cm2). Plan: After subcutaneous debridement and saline, Epifix placement #3 was done today. It was covered with a wound veil and secured with Steri-strips. Patient tolerated procedure well. Use a Tubigrip for compression. Keep left leg elevated when sitting. She is finished with her Levaquin. The operative culture was negative. Encourage nutritional supplementation with protein to help the healing process. Followup one week. Code Visit [id number]-[id number]: 00538 Skin sub graft trnk/arm/leg
[2018-03-15 10:56] VITALS: BP 125/63; PULSE 63; RESP 20; TEMP 36.4
--- NOTE | 2018-03-15 22:35 | PCM.WC.PN ---
Type of Wound Date of Service: 03/15/18 Chief Complaint: Nonhealing hematoma ulcer left lower anteromedial leg. History of Wound: Surgery 12/08/17 - Surgical preparation left lower anteromedial leg with incision and drainage and excisional debridement traumatic hematoma (60 cm2). Wound care - Epifix #3 and Tubigrip compression. Operative culture - negative. Was treated perioperatively with Levaquin and has finished them. Encourage nutritional supplementation with protein to help the healing process. Today she denies any fever. Her appetite is good. Progress of Wound: Improved. - Physical Exam Vital Signs Temp Pulse Resp BP 97.5 F L 63 20 H 125/63 H 03/15/18 10:56 03/15/18 10:56 03/15/18 10:56 03/15/18 10:56 Wound Measurements and Assessment WC - Nurse 1 - General Ulcer Measurement Start: 02/22/18 09:44 Freq: Status: Active Protocol: Activity Type Activity Date Activity User E-Sign Co-Sign Detail Recorded Client Recorded Date Recorded By Document 03/15/18 10:56 DL [id number] 03/15/18 11:04 DL 03/15/18 10:56 Wound Center Nurse 1 [Ulcer Assessment] #1 L Med Lower Leg -Current Size (cm) - Length 2.7 -Current Size (cm) - Width 1.7 -Current Size (cm) - Depth 0.1 -Total Square Cm 4.59 -Photo Taken Yes -Exudate Amt Small (1-33%) -Exudate Type Serosanguineous -Wound Margin Distinct, Outline Attached -Granulation Amt Medium (34-66%) -Granulation Quality Hyper- granulation Red -Necrosis Amt Medium (34-66%) -Necrotic Tissue Type Adherent Slough -Structure Exposed N/A -Texture (Karen-wound Skin Appearance) Localized Edema Scarring -Moisture (Karen-wound Skin Appearance Dry/Scaly ) -Color (Karen-wound Skin Appearance) No Abnormality -Temperature (Karen-wound Skin No Abnormality Appearance) (Pt Warm) -Tenderness on Palpation (Karen-wound No Skin Appearance) -Ulcer Cleansing Wound Cleanser -Foul Odor after Cleansing No -Anesthetic Used 5% Lidocaine Gel [Edema Assessment] -Left Calf (cm) 37 -Left Ankle (cm) 22 WC - Nurse 2 - General Ulcer CM Notes Start: 02/22/18 09:44 Freq: Status: Active Protocol: Activity Type Activity Date Activity User E-Sign Co-Sign Detail Recorded Client Recorded Date Recorded By Document 03/15/18 11:43 [id number] 03/15/18 11:49 03/15/18 11:43 Wound Center Nurse 2 [Procedure/Treatment] #1 L Med Lower Leg -Time 11:43 -Correct Patient Yes -Correct Side, Site, Position Yes -Correct Procedure Yes -Procedure Performed Yes -Type of Procedure Debridement -Clinical Debridement Subcutaneous -Post Debridement Size (cm) - Length 3.5 -Post Debridement Size (cm) - Width 2 -Post Debridement Size (cm) - Depth 0.1 -Total Square Cm 7.0 -Wound/Ulcer Outcome Not Healed -Ulcer Cleansing Rinsed/ Irrigated with Saline -Foul Odor after Cleansing No -Bioengineered Tissue Yes -Type of bioengineered Tissue EPIFIX -Expiration Date 10/23/22 -Product Lot Number [id number] -Percent Used 100 -Saline Lot Number [id number] -Bleeding Controlled with Pressure -Treatment Response Procedure Tolerated Well [See Physician Procedure note for Specifics] Pain Scale: 0-10 Numeric [Pain] -Is Patient Pain Free? Yes Debridement Note Post-Debridement Measurements/Treatment WC - Nurse 2 - General Ulcer CM Notes Start: 02/22/18 09:44 Freq: Status: Active Protocol: Activity Type Activity Date Activity User E-Sign Co-Sign Detail Recorded Client Recorded Date Recorded By Document 02/22/18 10:17 [id number] 02/22/18 10:19 Document 03/01/18 09:45 [id number] 03/01/18 09:49 Document 03/08/18 10:16 [id number] 03/08/18 10:21 Document 03/15/18 11:43 [id number] 03/15/18 11:49 02/22/18 03/01/18 03/08/18 10:17 09:45 10:16 Wound Center Nurse 2 #1 L Med Lower Leg -Time 10:18 09:47 10:17 -Correct Patient Yes Yes Yes -Correct Side, Site, Position Yes Yes Yes -Correct Procedure Yes Yes Yes -Procedure Performed Yes Yes Yes -Type of Procedure Debridement Debridement Debridement -Clinical Debridement Subcutaneous Subcutaneous Subcutaneous -Post Debridement Size (cm) - Length 6 4.5 4.1 -Post Debridement Size (cm) - Width 3 2.2 2.5 -Post Debridement Size (cm) - Depth 0.1 0.1 0.1 -Total Square Cm 18 9.90 10.25 -Wound/Ulcer Outcome Not Healed Not Healed Not Healed -Ulcer Cleansing Rinsed/ Rinsed/ Rinsed/ Irrigated with Irrigated with Irrigated with Saline Saline Saline -Foul Odor after Cleansing No No No -Bioengineered Tissue Yes Yes Yes -Type of bioengineered Tissue EPIFIX EPIFIX EPIFIX -Expiration Date 10/23/22 10/23/22 11/22/22 -Product Lot Number [id number] -Percent Used 100 100 100 -Saline Lot Number [id number] -Bleeding Controlled with Pressure Pressure Pressure -Treatment Response Procedure Procedure Procedure Tolerated Well Tolerated Well Tolerated Well Pain Scale: 0-10 Numeric Is Patient Pain Free? Yes Yes Yes 03/15/18 11:43 Wound Center Nurse 2 #1 L Med Lower Leg -Time 11:43 -Correct Patient Yes -Correct Side, Site, Position Yes -Correct Procedure Yes -Procedure Performed Yes -Type of Procedure Debridement -Clinical Debridement Subcutaneous -Post Debridement Size (cm) - Length 3.5 -Post Debridement Size (cm) - Width 2 -Post Debridement Size (cm) - Depth 0.1 -Total Square Cm 7.0 -Wound/Ulcer Outcome Not Healed -Ulcer Cleansing Rinsed/ Irrigated with Saline -Foul Odor after Cleansing No -Bioengineered Tissue Yes -Type of bioengineered Tissue EPIFIX -Expiration Date 10/23/22 -Product Lot Number [id number] -Percent Used 100 -Saline Lot Number [id number] -Bleeding Controlled with Pressure -Treatment Response Procedure Tolerated Well Pain Scale: 0-10 Numeric Is Patient Pain Free? Yes Wound debrided: #1 Left lower anteromedial leg. Laterality: Left Wound Grade/Stage: 2. Type of Debridement: Excisional debridement Anesthesia Used: 4% Lidocaine Solution Depth: Down to and including healthy tissue, in the subcutaneous layer Percentage of wound debrided: 100 Instrument Used: 5mm curette Tissue Removed: subcutaneous tissue. Severity: Fat Layer Exposed Amount of bleeding with debridement: Mild Bleeding Controlled with: Pressure Patient tolerated procedure well - I used Epifix placental connective tissue graft, placement #4. Product Lot Number - [id number]. 100% used. Saline Lot Number - [id number]. Assessment/Plan Assessment: 1. Nonhealing hematoma ulcer left lower anteromedial leg. 2. [facility] used of 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 therapy for atrial fibrillation. 3. s/p surgical preparation left lower anteromedial leg with incision and drainage and excisional debridement traumatic hematoma (60 cm2). Plan: After subcutaneous debridement and saline, Epifix placement #4 was done today. It was covered with a wound veil and secured with Steri-strips. Patient tolerated procedure well. Use a Tubigrip for compression. Keep left leg elevated when sitting. She is finished with her Levaquin. The operative culture was negative. Encourage nutritional supplementation with protein to help the healing process. Followup 2 weeks with Birgit, the Nurse Practitioner. Followup 3 weeks to see.
--- NOTE | 2018-03-16 21:56 | PN.PCM_ITS ---
Type of Wound Date of Service: 03/15/18 Chief Complaint: Nonhealing hematoma ulcer left lower anteromedial leg. History of Wound: Surgery 12/08/17 - Surgical preparation left lower anteromedial leg with incision and drainage and excisional debridement traumatic hematoma (60 cm2). Wound care - Epifix #3 and Tubigrip compression. Operative culture - negative. Was treated perioperatively with Levaquin and has finished them. Encourage nutritional supplementation with protein to help the healing process. Today she denies any fever. Her appetite is good. Progress of Wound: Improved. - Physical Exam Vital Signs Temp Pulse Resp BP 97.5 F L 63 20 H 125/63 H 03/15/18 10:56 03/15/18 10:56 03/15/18 10:56 03/15/18 10:56 Wound Measurements and Assessment WC - Nurse 1 - General Ulcer Measurement Start: 02/22/18 09:44 Freq: Status: Active Protocol: Activity Type Activity Date Activity User E-Sign Co-Sign Detail Recorded Client Recorded Date Recorded By Document 03/15/18 10:56 DL [id number] 03/15/18 11:04 DL 03/15/18 10:56 Wound Center Nurse 1 [Ulcer Assessment] #1 L Med Lower Leg -Current Size (cm) - Length 2.7 -Current Size (cm) - Width 1.7 -Current Size (cm) - Depth 0.1 -Total Square Cm 4.59 -Photo Taken Yes -Exudate Amt Small (1-33%) -Exudate Type Serosanguineous -Wound Margin Distinct, Outline Attached -Granulation Amt Medium (34-66%) -Granulation Quality Hyper- granulation Red -Necrosis Amt Medium (34-66%) -Necrotic Tissue Type Adherent Slough -Structure Exposed N/A -Texture (Karen-wound Skin Appearance) Localized Edema Scarring -Moisture (Karen-wound Skin Appearance Dry/Scaly ) -Color (Karen-wound Skin Appearance) No Abnormality -Temperature (Karen-wound Skin No Abnormality Appearance) (Pt Warm) -Tenderness on Palpation (Karen-wound No Skin Appearance) -Ulcer Cleansing Wound Cleanser -Foul Odor after Cleansing No -Anesthetic Used 5% Lidocaine Gel [Edema Assessment] -Left Calf (cm) 37 -Left Ankle (cm) 22 WC - Nurse 2 - General Ulcer CM Notes Start: 02/22/18 09:44 Freq: Status: Active Protocol: Activity Type Activity Date Activity User E-Sign Co-Sign Detail Recorded Client Recorded Date Recorded By Document 03/15/18 11:43 [id number] 03/15/18 11:49 03/15/18 11:43 Wound Center Nurse 2 [Procedure/Treatment] #1 L Med Lower Leg -Time 11:43 -Correct Patient Yes -Correct Side, Site, Position Yes -Correct Procedure Yes -Procedure Performed Yes -Type of Procedure Debridement -Clinical Debridement Subcutaneous -Post Debridement Size (cm) - Length 3.5 -Post Debridement Size (cm) - Width 2 -Post Debridement Size (cm) - Depth 0.1 -Total Square Cm 7.0 -Wound/Ulcer Outcome Not Healed -Ulcer Cleansing Rinsed/ Irrigated with Saline -Foul Odor after Cleansing No -Bioengineered Tissue Yes -Type of bioengineered Tissue EPIFIX -Expiration Date 10/23/22 -Product Lot Number [id number] -Percent Used 100 -Saline Lot Number [id number] -Bleeding Controlled with Pressure -Treatment Response Procedure Tolerated Well [See Physician Procedure note for Specifics] Pain Scale: 0-10 Numeric [Pain] -Is Patient Pain Free? Yes Debridement Note Post-Debridement Measurements/Treatment WC - Nurse 2 - General Ulcer CM Notes Start: 02/22/18 09:44 Freq: Status: Active Protocol: Activity Type Activity Date Activity User E-Sign Co-Sign Detail Recorded Client Recorded Date Recorded By Document 02/22/18 10:17 [id number] 02/22/18 10:19 Document 03/01/18 09:45 [id number] 03/01/18 09:49 Document 03/08/18 10:16 [id number] 03/08/18 10:21 Document 03/15/18 11:43 [id number] 03/15/18 11:49 02/22/18 03/01/18 03/08/18 10:17 09:45 10:16 Wound Center Nurse 2 #1 L Med Lower Leg -Time 10:18 09:47 10:17 -Correct Patient Yes Yes Yes -Correct Side, Site, Position Yes Yes Yes -Correct Procedure Yes Yes Yes -Procedure Performed Yes Yes Yes -Type of Procedure Debridement Debridement Debridement -Clinical Debridement Subcutaneous Subcutaneous Subcutaneous -Post Debridement Size (cm) - Length 6 4.5 4.1 -Post Debridement Size (cm) - Width 3 2.2 2.5 -Post Debridement Size (cm) - Depth 0.1 0.1 0.1 -Total Square Cm 18 9.90 10.25 -Wound/Ulcer Outcome Not Healed Not Healed Not Healed -Ulcer Cleansing Rinsed/ Rinsed/ Rinsed/ Irrigated with Irrigated with Irrigated with Saline Saline Saline -Foul Odor after Cleansing No No No -Bioengineered Tissue Yes Yes Yes -Type of bioengineered Tissue EPIFIX EPIFIX EPIFIX -Expiration Date 10/23/22 10/23/22 11/22/22 -Product Lot Number [id number] -Percent Used 100 100 100 -Saline Lot Number [id number] -Bleeding Controlled with Pressure Pressure Pressure -Treatment Response Procedure Procedure Procedure Tolerated Well Tolerated Well Tolerated Well Pain Scale: 0-10 Numeric Is Patient Pain Free? Yes Yes Yes 03/15/18 11:43 Wound Center Nurse 2 #1 L Med Lower Leg -Time 11:43 -Correct Patient Yes -Correct Side, Site, Position Yes -Correct Procedure Yes -Procedure Performed Yes -Type of Procedure Debridement -Clinical Debridement Subcutaneous -Post Debridement Size (cm) - Length 3.5 -Post Debridement Size (cm) - Width 2 -Post Debridement Size (cm) - Depth 0.1 -Total Square Cm 7.0 -Wound/Ulcer Outcome Not Healed -Ulcer Cleansing Rinsed/ Irrigated with Saline -Foul Odor after Cleansing No -Bioengineered Tissue Yes -Type of bioengineered Tissue EPIFIX -Expiration Date 10/23/22 -Product Lot Number [id number] -Percent Used 100 -Saline Lot Number [id number] -Bleeding Controlled with Pressure -Treatment Response Procedure Tolerated Well Pain Scale: 0-10 Numeric Is Patient Pain Free? Yes Wound debrided: #1 Left lower anteromedial leg. Laterality: Left Wound Grade/Stage: 2. Type of Debridement: Excisional debridement Anesthesia Used: 4% Lidocaine Solution Depth: Down to and including healthy tissue, in the subcutaneous layer Percentage of wound debrided: 100 Instrument Used: 5mm curette Tissue Removed: subcutaneous tissue. Severity: Fat Layer Exposed Amount of bleeding with debridement: Mild Bleeding Controlled with: Pressure Patient tolerated procedure well - I used Epifix placental connective tissue graft, placement #4. Product Lot Number - [id number]. 100% used. Saline Lot Number - [id number]. Assessment/Plan Assessment: 1. Nonhealing hematoma ulcer left lower anteromedial leg. 2. 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 for [facility]. 3. s/p surgical preparation left lower anteromedial leg with incision and drainage and excisional debridement traumatic hematoma (60 cm2). Plan: After subcutaneous debridement and saline, Epifix placement #4 was done today. It was covered with a wound veil and secured with Steri-strips. Patient tolerated procedure well. Use a Tubigrip for compression. Keep left leg elevated when sitting. She is finished with her Levaquin. The operative culture was negative. Encourage nutritional supplementation with protein to help the healing process. Followup 2 weeks with Birgit, the Nurse Practitioner. Followup 3 weeks to see.
== END 2018-03-24 23:59 ==
LOC: WC 10:30
PROVIDERS: Family Provider Family Medicine Geriatric Medicine; PCP Family Medicine Geriatric Medicine; Visit Provider Surgery
DX: S80.12XA Contusion of left lower leg, initial encounter (principal); X58.XXXA Exposure to other specified factors, initial encounter; Z79.01 Long term (current) use of 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s; I48.0 Paroxysmal atrial fibrillation
CPT/HCPCS: 15271; Q4131

== ENCOUNTER 2018-04-20 13:00 | Outpatient (RCR) | payer MEDICARE, OTHER, SELFPAY ==
[2018-03-25 01:14] VITALS: BP 125/63; PULSE 63; RESP 20; TEMP 36.4
[2018-03-30 13:23] VITALS: BP 102/60; PULSE 76; RESP 18; TEMP 36.3
--- NOTE | 2018-04-01 08:45 | PCM.WC.PN ---
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 Current Visit: Yes Code(s): L97.922 - Non-pressure chronic ulcer of unspecified part of left lower leg with fat layer exposed (2) Chronic anticoagulation Status: Chronic Current Visit: Yes Code(s): Z79.01 - [facility] (current) use of 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s (3) Hematoma of left lower extremity Status: Acute Current Visit: No Code(s): S80.12XA - Contusion of left lower leg, initial encounter (4) Paroxysmal atrial fibrillation Status: Chronic Current Visit: No Code(s): I48.0 - Paroxysmal atrial fibrillation Type of Wound Date of Service: 03/30/18 Chief Complaint: Nonhealing hematoma ulcer left lower anteromedial leg. History of Wound: Surgery 12/08/17 - Surgical preparation left lower anteromedial leg with incision and drainage and excisional debridement traumatic hematoma (60 cm2). Wound care - Epifix and Tubigrip compression. Operative culture - negative. Was treated perioperatively with Levaquin and has finished them. Encourage nutritional supplementation with protein to help the healing process. Today she denies any fever. Her appetite is good. Progress of Wound: Improved. - Physical Exam Vital Signs Temp Pulse Resp BP 97.3 F L 76 18 102/60 03/30/18 13:23 03/30/18 13:23 03/30/18 13:23 03/30/18 13:23 General: Alert, Oriented x3, Cooperative HEENT: Atraumatic Oral: Moist Mucosa Cardiovascular: Regular rate Extremities: No edema, Capillary Refill Less than 3 Seconds, Peripheral Pulses Normal Skin: Ulcer/ Wound - Left lower anterior leg Wound Measurements and Assessment WC - Nurse 1 - General Ulcer Measurement Start: 03/30/18 13:23 Freq: Status: Active Protocol: Activity Type Activity Date Activity User E-Sign Co-Sign Detail Recorded Client Recorded Date Recorded By Document 03/30/18 13:23 [id number] 03/30/18 13:25 03/30/18 13:23 Wound Center Nurse 1 [Ulcer Assessment] #1 L Med Lower Leg -Combined with other wound No -Current Size (cm) - Length 2.5 -Current Size (cm) - Width 1.1 -Current Size (cm) - Depth 0.1 -Total Square Cm 2.75 -Photo Taken No -Epithelialization Small 1-33% -Tunneling No -Undermining/Tunneling No -Circular Undermining No -Classification - Thickness Full Thickness without Exposed Support Structure -Exudate Amt Small (1-33%) -Exudate Type Serosanguineous -Wound Margin Distinct, Outline Attached -Granulation Amt Medium (34-66%) -Granulation Quality Red -Slough/Fibrin Yes -Necrosis Amt Small (1-33%) -Necrotic Tissue Type Adherent Slough -Structure Exposed Fascia Fat Layer Exposed -Texture (Karen-wound Skin Appearance) Assessed Scarring -Moisture (Karen-wound Skin Appearance Assessed ) Dry/Scaly -Color (Karen-wound Skin Appearance) Assessed Hemosiderin Staining -Temperature (Karen-wound Skin No Abnormality Appearance) (Pt Warm) -Tenderness on Palpation (Karen-wound No Skin Appearance) -Ulcer Cleansing Rinsed/ Irrigated with Saline -Foul Odor after Cleansing No -Anesthetic Used 5% Lidocaine Gel [Edema Assessment] -Lower Limb Edema Present No -Left Calf (cm) 38.2 -Left Ankle (cm) 22.5 Musculoskeletal: No Tenderness to Palpation of Joints or Extremities, No Muscle Wasting Neurological: Neuro grossly intact Psych/Mental Status: Normal Affect, Appropriate Debridement Note Wound debrided: left lower anterior leg Laterality: Left Type of Debridement: Excisional debridement Anesthesia Used: 4% Lidocaine Solution Depth: Down to and including healthy tissue, in the subcutaneous layer Percentage of wound debrided: 100 Instrument Used: 3mm curette Tissue Removed: Subcutaneous tissue and slough Severity: Limited To Skin Breakdown Amount of bleeding with debridement: Mild Bleeding Controlled with: Pressure Patient tolerated procedure well Assessment/Plan Active Problems 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) Chronic anticoagulation (Chronic) Assessment: 1. Nonhealing hematoma ulcer left lower anteromedial leg. 2. [facility] used of 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 therapy for atrial fibrillation. 3. s/p surgical preparation left lower anteromedial leg with incision and drainage and excisional debridement traumatic hematoma (60 cm2). Plan: After subcutaneous debridement and saline, Epifix placement #5 was done today. It was covered with a wound veil and secured with Steri-strips. Patient tolerated procedure well. Use a Tubigrip for compression. Keep left leg elevated when sitting. She is finished with her Levaquin. The operative culture was negative. Encourage nutritional supplementation with protein to help the healing process. Followup 1 week. Code Visit [id number]: [id number] Skin sub graft trnk/arm/leg
--- NOTE | 2018-04-01 08:49 | PN.PCM_ITS ---
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 Current Visit: Yes Code(s): L97.922 - Non-pressure chronic ulcer of unspecified part of left lower leg with fat layer exposed (2) Chronic anticoagulation Status: Chronic Current Visit: Yes Code(s): Z79.01 - [facility] (current) use of 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s (3) Hematoma of left lower extremity Status: Acute Current Visit: No Code(s): S80.12XA - Contusion of left lower leg, initial encounter (4) Paroxysmal atrial fibrillation Status: Chronic Current Visit: No Code(s): I48.0 - Paroxysmal atrial fibrillation Type of Wound Date of Service: 03/30/18 Chief Complaint: Nonhealing hematoma ulcer left lower anteromedial leg. History of Wound: Surgery 12/08/17 - Surgical preparation left lower anteromedial leg with incision and drainage and excisional debridement traumatic hematoma (60 cm2). Wound care - Epifix and Tubigrip compression. Operative culture - negative. Was treated perioperatively with Levaquin and has finished them. Encourage nutritional supplementation with protein to help the healing process. Today she denies any fever. Her appetite is good. Progress of Wound: Improved. - Physical Exam Vital Signs Temp Pulse Resp BP 97.3 F L 76 18 102/60 03/30/18 13:23 03/30/18 13:23 03/30/18 13:23 03/30/18 13:23 General: Alert, Oriented x3, Cooperative HEENT: Atraumatic Oral: Moist Mucosa Cardiovascular: Regular rate Extremities: No edema, Capillary Refill Less than 3 Seconds, Peripheral Pulses Normal Skin: Ulcer/ Wound - Left lower anterior leg Wound Measurements and Assessment WC - Nurse 1 - General Ulcer Measurement Start: 03/30/18 13:23 Freq: Status: Active Protocol: Activity Type Activity Date Activity User E-Sign Co-Sign Detail Recorded Client Recorded Date Recorded By Document 03/30/18 13:23 [id number] 03/30/18 13:25 03/30/18 13:23 Wound Center Nurse 1 [Ulcer Assessment] #1 L Med Lower Leg -Combined with other wound No -Current Size (cm) - Length 2.5 -Current Size (cm) - Width 1.1 -Current Size (cm) - Depth 0.1 -Total Square Cm 2.75 -Photo Taken No -Epithelialization Small 1-33% -Tunneling No -Undermining/Tunneling No -Circular Undermining No -Classification - Thickness Full Thickness without Exposed Support Structure -Exudate Amt Small (1-33%) -Exudate Type Serosanguineous -Wound Margin Distinct, Outline Attached -Granulation Amt Medium (34-66%) -Granulation Quality Red -Slough/Fibrin Yes -Necrosis Amt Small (1-33%) -Necrotic Tissue Type Adherent Slough -Structure Exposed Fascia Fat Layer Exposed -Texture (Karen-wound Skin Appearance) Assessed Scarring -Moisture (Karen-wound Skin Appearance Assessed ) Dry/Scaly -Color (Karen-wound Skin Appearance) Assessed Hemosiderin Staining -Temperature (Karen-wound Skin No Abnormality Appearance) (Pt Warm) -Tenderness on Palpation (Karen-wound No Skin Appearance) -Ulcer Cleansing Rinsed/ Irrigated with Saline -Foul Odor after Cleansing No -Anesthetic Used 5% Lidocaine Gel [Edema Assessment] -Lower Limb Edema Present No -Left Calf (cm) 38.2 -Left Ankle (cm) 22.5 Musculoskeletal: No Tenderness to Palpation of Joints or Extremities, No Muscle Wasting Neurological: Neuro grossly intact Psych/Mental Status: Normal Affect, Appropriate Debridement Note Wound debrided: left lower anterior leg Laterality: Left Type of Debridement: Excisional debridement Anesthesia Used: 4% Lidocaine Solution Depth: Down to and including healthy tissue, in the subcutaneous layer Percentage of wound debrided: 100 Instrument Used: 3mm curette Tissue Removed: Subcutaneous tissue and slough Severity: Limited To Skin Breakdown Amount of bleeding with debridement: Mild Bleeding Controlled with: Pressure Patient tolerated procedure well Assessment/Plan Active Problems 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) Chronic anticoagulation (Chronic) Assessment: 1. Nonhealing hematoma ulcer left lower anteromedial leg. 2. [facility] used of 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 therapy for atrial fibrillation. 3. s/p surgical preparation left lower anteromedial leg with incision and drainage and excisional debridement traumatic hematoma (60 cm2). Plan: After subcutaneous debridement and saline, Epifix placement #5 was done today. It was covered with a wound veil and secured with Steri-strips. Patient tolerated procedure well. Use a Tubigrip for compression. Keep left leg elevated when sitting. She is finished with her Levaquin. The operative culture was negative. Encourage nutritional supplementation with protein to help the healing process. Followup 1 week. Code Visit [id number]: [id number] Skin sub graft trnk/arm/leg
[2018-04-06 12:39] LABS: Absolute Lymphocyte Count 1.09 X10^3/ul (0.83-4.51); Absolute Neutrophil Count 4.6 X10^3/uL (2.0-7.7); Basophil# 0.03 X10^3/uL; Basophil% 0.5 % (0-1); Eosinophil# 0.28 X10^3/uL; Eosinophils% 4.4 % (0-5); Hematocrit 37.6 % (37-47); Hemoglobin 11.9 g/dl (12.0-15.0); Lymphocyte # 1.09 X10^3/ul (4.0); Mean Corp Hgb Conc 31.6 g/gl (32-36); Mean Corpuscular Hgb 29.3 pg (27.0-32.0); Mean Corpuscular Volume 92.6 fL (81-99); Mean Platelet Vol. 10.5 fl (6.2-12.0); Monocyte# 0.43 X10^3/uL; Monocyte% 6.7 % (0-10); Neutrophil # 4.58 X10^3/uL (2.7-7.7); Neutrophil % 71.2 % (47-70); Platelet Count 251 K/mm3 (150-450); RBC Distribution Width CV 15.4 % (11.6-14.6); RBC Distribution Width SD 50.2 fl (35.1-43.9); Red Blood Count 4.06 M/mm3 (4.2-5.4); White Blood Count 6.4 K/mm3 (4.4-11.0)
[2018-04-06 12:45] LABS: POSITIVE COUNT NO; POSITIVE DIFFERENTIAL NO; POSITIVE MORPHOLOGY NO
[2018-04-06 13:12] LABS: Vitamin D,25 Hydroxy 30.2 ng/mL (29.95-100.01)
[2018-04-06 13:30] LABS: ALB/GLOB Ratio 0.7 RATIO (0.9-2.4); AST(SGOT) 21 U/L (15-37); Alanine Aminotransfer ALT/SGPT 29 U/L (13-56); Alkaline Phosphatase 97 U/L (45-117); Anion Gap 8 (5-15); BUN 27 mg/dL (7-18); BUN/Creat Ratio 24.3 RATIO (10-20); Calcium,Total 8.2 mg/dL (8.5-10.1); Chloride 104 mmol/L (98-107); Creatinine, Serum 1.11 mg/dL (0.55-1.02); EST Glomerular Filtration Rate 51 mL/min (>60); Est Glom Filt Rate - Afr Amer 62 mL/min (>60); Globulin 4.4 g/dL (2.2-4.2); Glucose 82 mg/dL (74-106); Protein, Total 7.4 g/dL (6.4-8.2); Sodium Level 142 mmol/L (136-145); Thyroid Stim Hormone (TSH) 2.98 uIU/mL (0.358-3.74)
[2018-04-06 15:08] VITALS: BP 122/70; PULSE 73; RESP 16; TEMP 36.6
--- NOTE | 2018-04-06 17:34 | PCM.WC.PN ---
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 Current Visit: Yes Code(s): L97.922 - Non-pressure chronic ulcer of unspecified part of left lower leg with fat layer exposed (2) Chronic anticoagulation Status: Chronic Current Visit: Yes Code(s): Z79.01 - FDC (current) use of 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s (3) Hematoma of left lower extremity Status: Acute Current Visit: No Code(s): S80.12XA - Contusion of left lower leg, initial encounter (4) Paroxysmal atrial fibrillation Status: Chronic Current Visit: No Code(s): I48.0 - Paroxysmal atrial fibrillation Type of Wound Date of Service: 04/06/18 Chief Complaint: Nonhealing hematoma ulcer left lower anteromedial leg. History of Wound: Surgery 12/08/17 - Surgical preparation left lower anteromedial leg with incision and drainage and excisional debridement traumatic hematoma (60 cm2). Wound care - Epifix and Tubigrip compression. Operative culture - negative. Was treated perioperatively with Levaquin and has finished them. Encourage nutritional supplementation with protein to help the healing process. Today she denies any fever. Her appetite is good. Progress of Wound: Minimal improvement. Large amount of epithelialization. - Physical Exam Vital Signs Temp Pulse Resp BP 97.8 F 73 16 122/70 H 04/06/18 15:08 04/06/18 15:08 04/06/18 15:08 04/06/18 15:08 General: Alert, Oriented x3, Cooperative HEENT: Atraumatic Oral: Moist Mucosa Extremities: No edema, Capillary Refill Less than 3 Seconds, No Calf Tenderness Skin: Ulcer/ Wound - Left anterior lower leg Wound Measurements and Assessment WC - Nurse 1 - General Ulcer Measurement Start: 03/30/18 13:23 Freq: Status: Active Protocol: Activity Type Activity Date Activity User E-Sign Co-Sign Detail Recorded Client Recorded Date Recorded By Document 04/06/18 15:08 RI [id number] 04/06/18 15:19 RI 04/06/18 15:08 Wound Center Nurse 1 [Ulcer Assessment] #1 L Med Lower Leg -Combined with other wound No -Current Size (cm) - Length 1.9 -Current Size (cm) - Width 4.5 -Current Size (cm) - Depth 0.1 -Total Square Cm 8.55 -Photo Taken No -Tunneling No -Undermining/Tunneling No -Circular Undermining No -Exudate Amt Medium (34-66%) -Exudate Type Serosanguineous -Wound Margin Distinct, Outline Attached -Granulation Amt Small (1-33%) -Granulation Quality Pale [place] -Necrosis Amt Medium (34-66%) -Necrotic Tissue Type Adherent Slough -Texture (Karen-wound Skin Appearance) Assessed -Moisture (Karen-wound Skin Appearance Assessed ) Maceration Dry/Scaly -Color (Karen-wound Skin Appearance) Assessed -Temperature (Karen-wound Skin No Abnormality Appearance) (Pt Warm) -Ulcer Cleansing Rinsed/ Irrigated with Saline -Foul Odor after Cleansing No -Anesthetic Used 5% Lidocaine Gel [Edema Assessment] -Lower Limb Edema Present Yes -Right Calf (cm) 40 -Right Ankle (cm) 23 -Left Calf (cm) 38 -Left Ankle (cm) 22 WC - Nurse 2 - General Ulcer CM Notes Start: 03/30/18 13:23 Freq: Status: Active Protocol: Activity Type Activity Date Activity User E-Sign Co-Sign Detail Recorded Client Recorded Date Recorded By Document 04/06/18 15:50 [id number] 04/06/18 15:54 04/06/18 15:50 Wound Center Nurse 2 [Procedure/Treatment] #1 L Med Lower Leg -Time 15:50 -Correct Patient Yes -Correct Side, Site, Position Yes -Correct Procedure Yes -Procedure Performed Yes -Type of Procedure Debridement -Clinical Debridement Subcutaneous -Post Debridement Size (cm) - Length 4.7 -Post Debridement Size (cm) - Width 1.7 -Post Debridement Size (cm) - Depth 0.1 -Total Square Cm 7.99 -Wound/Ulcer Outcome Not Healed -Ulcer Cleansing Rinsed/ Irrigated with Saline -Foul Odor after Cleansing No -Bioengineered Tissue No -Bleeding Controlled with Pressure -Treatment Response Procedure Tolerated Well [See Physician Procedure note for Specifics] Pain Scale: 0-10 Numeric [Pain] -Is Patient Pain Free? Yes Musculoskeletal: No Tenderness to Palpation of Joints or Extremities, No Muscle Wasting Neurological: Neuro grossly intact Psych/Mental Status: Normal Affect, Appropriate Debridement Note Post-Debridement Measurements/Treatment WC - Nurse 2 - General Ulcer CM Notes Start: 03/30/18 13:23 Freq: Status: Active Protocol: Activity Type Activity Date Activity User E-Sign Co-Sign Detail Recorded Client Recorded Date Recorded By Document 04/06/18 15:50 [id number] 04/06/18 15:54 04/06/18 15:50 Wound Center Nurse 2 #1 L Med Lower Leg -Time 15:50 -Correct Patient Yes -Correct Side, Site, Position Yes -Correct Procedure Yes -Procedure Performed Yes -Type of Procedure Debridement -Clinical Debridement Subcutaneous -Post Debridement Size (cm) - Length 4.7 -Post Debridement Size (cm) - Width 1.7 -Post Debridement Size (cm) - Depth 0.1 -Total Square Cm 7.99 -Wound/Ulcer Outcome Not Healed -Ulcer Cleansing Rinsed/ Irrigated with Saline -Foul Odor after Cleansing No -Bioengineered Tissue No -Bleeding Controlled with Pressure -Treatment Response Procedure Tolerated Well Pain Scale: 0-10 Numeric Is Patient Pain Free? Yes Wound debrided: Left anterior lower leg Laterality: Left Type of Debridement: Excisional debridement Anesthesia Used: 5% Lidocaine Gel Depth: Down to and including healthy tissue, in the subcutaneous layer Percentage of wound debrided: 100 Instrument Used: 3mm curette Severity: Fat Layer Exposed Amount of bleeding with debridement: Moderate Bleeding Controlled with: Compression and gauze Patient tolerated procedure well Assessment/Plan Active Problems 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) Chronic anticoagulation (Chronic) Assessment: 1. Nonhealing hematoma ulcer left lower anteromedial leg. 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 3. s/p surgical preparation left lower anteromedial leg with incision and drainage and excisional debridement traumatic hematoma (60 cm2). Plan: After subcutaneous debridement and saline, Epifix not placed today. Due to there not being much improvement in the ulcer and there being a large amount of epithelialization will obtain wound cultures today. Will do silver dressing changes daily. Wash area daily with soap and water. Use a Tubigrip for compression. Keep left leg elevated when sitting. She is finished with her Levaquin. The operative culture was negative. Encourage nutritional supplementation with protein to help the healing process. Followup 1 week.
--- NOTE | 2018-04-08 11:38 | PN.PCM_ITS ---
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 Current Visit: Yes Code(s): L97.922 - Non-pressure chronic ulcer of unspecified part of left lower leg with fat layer exposed (2) Chronic anticoagulation Status: Chronic Current Visit: Yes Code(s): Z79.01 - longterm (current) use of 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s (3) Hematoma of left lower extremity Status: Acute Current Visit: No Code(s): S80.12XA - Contusion of left lower leg, initial encounter (4) Paroxysmal atrial fibrillation Status: Chronic Current Visit: No Code(s): I48.0 - Paroxysmal atrial fibrillation Type of Wound Date of Service: 04/06/18 Chief Complaint: Nonhealing hematoma ulcer left lower anteromedial leg. History of Wound: Surgery 12/08/17 - Surgical preparation left lower anteromedial leg with incision and drainage and excisional debridement traumatic hematoma (60 cm2). Wound care - Epifix and Tubigrip compression. Operative culture - negative. Was treated perioperatively with Levaquin and has finished them. Encourage nutritional supplementation with protein to help the healing process. Today she denies any fever. Her appetite is good. Progress of Wound: Minimal improvement. Large amount of epithelialization. - Physical Exam Vital Signs Temp Pulse Resp BP 97.8 F 73 16 122/70 H 04/06/18 15:08 04/06/18 15:08 04/06/18 15:08 04/06/18 15:08 General: Alert, Oriented x3, Cooperative HEENT: Atraumatic Oral: Moist Mucosa Extremities: No edema, Capillary Refill Less than 3 Seconds, No Calf Tenderness Skin: Ulcer/ Wound - Left anterior lower leg Wound Measurements and Assessment WC - Nurse 1 - General Ulcer Measurement Start: 03/30/18 13:23 Freq: Status: Active Protocol: Activity Type Activity Date Activity User E-Sign Co-Sign Detail Recorded Client Recorded Date Recorded By Document 04/06/18 15:08 NC [id number] 04/06/18 15:19 NC 04/06/18 15:08 Wound Center Nurse 1 [Ulcer Assessment] #1 L Med Lower Leg -Combined with other wound No -Current Size (cm) - Length 1.9 -Current Size (cm) - Width 4.5 -Current Size (cm) - Depth 0.1 -Total Square Cm 8.55 -Photo Taken No -Tunneling No -Undermining/Tunneling No -Circular Undermining No -Exudate Amt Medium (34-66%) -Exudate Type Serosanguineous -Wound Margin Distinct, Outline Attached -Granulation Amt Small (1-33%) -Granulation Quality Pale [place] -Necrosis Amt Medium (34-66%) -Necrotic Tissue Type Adherent Slough -Texture (Karen-wound Skin Appearance) Assessed -Moisture (Karen-wound Skin Appearance Assessed ) Maceration Dry/Scaly -Color (Karen-wound Skin Appearance) Assessed -Temperature (Karen-wound Skin No Abnormality Appearance) (Pt Warm) -Ulcer Cleansing Rinsed/ Irrigated with Saline -Foul Odor after Cleansing No -Anesthetic Used 5% Lidocaine Gel [Edema Assessment] -Lower Limb Edema Present Yes -Right Calf (cm) 40 -Right Ankle (cm) 23 -Left Calf (cm) 38 -Left Ankle (cm) 22 WC - Nurse 2 - General Ulcer CM Notes Start: 03/30/18 13:23 Freq: Status: Active Protocol: Activity Type Activity Date Activity User E-Sign Co-Sign Detail Recorded Client Recorded Date Recorded By Document 04/06/18 15:50 [id number] 04/06/18 15:54 04/06/18 15:50 Wound Center Nurse 2 [Procedure/Treatment] #1 L Med Lower Leg -Time 15:50 -Correct Patient Yes -Correct Side, Site, Position Yes -Correct Procedure Yes -Procedure Performed Yes -Type of Procedure Debridement -Clinical Debridement Subcutaneous -Post Debridement Size (cm) - Length 4.7 -Post Debridement Size (cm) - Width 1.7 -Post Debridement Size (cm) - Depth 0.1 -Total Square Cm 7.99 -Wound/Ulcer Outcome Not Healed -Ulcer Cleansing Rinsed/ Irrigated with Saline -Foul Odor after Cleansing No -Bioengineered Tissue No -Bleeding Controlled with Pressure -Treatment Response Procedure Tolerated Well [See Physician Procedure note for Specifics] Pain Scale: 0-10 Numeric [Pain] -Is Patient Pain Free? Yes Musculoskeletal: No Tenderness to Palpation of Joints or Extremities, No Muscle Wasting Neurological: Neuro grossly intact Psych/Mental Status: Normal Affect, Appropriate Debridement Note Post-Debridement Measurements/Treatment WC - Nurse 2 - General Ulcer CM Notes Start: 03/30/18 13:23 Freq: Status: Active Protocol: Activity Type Activity Date Activity User E-Sign Co-Sign Detail Recorded Client Recorded Date Recorded By Document 04/06/18 15:50 [id number] 04/06/18 15:54 04/06/18 15:50 Wound Center Nurse 2 #1 L Med Lower Leg -Time 15:50 -Correct Patient Yes -Correct Side, Site, Position Yes -Correct Procedure Yes -Procedure Performed Yes -Type of Procedure Debridement -Clinical Debridement Subcutaneous -Post Debridement Size (cm) - Length 4.7 -Post Debridement Size (cm) - Width 1.7 -Post Debridement Size (cm) - Depth 0.1 -Total Square Cm 7.99 -Wound/Ulcer Outcome Not Healed -Ulcer Cleansing Rinsed/ Irrigated with Saline -Foul Odor after Cleansing No -Bioengineered Tissue No -Bleeding Controlled with Pressure -Treatment Response Procedure Tolerated Well Pain Scale: 0-10 Numeric Is Patient Pain Free? Yes Wound debrided: Left anterior lower leg Laterality: Left Type of Debridement: Excisional debridement Anesthesia Used: 5% Lidocaine Gel Depth: Down to and including healthy tissue, in the subcutaneous layer Percentage of wound debrided: 100 Instrument Used: 3mm curette Severity: Fat Layer Exposed Amount of bleeding with debridement: Moderate Bleeding Controlled with: Compression and gauze Patient tolerated procedure well Assessment/Plan Active Problems 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) Chronic anticoagulation (Chronic) Assessment: 1. Nonhealing hematoma ulcer left lower anteromedial leg. 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 3. s/p surgical preparation left lower anteromedial leg with incision and drainage and excisional debridement traumatic hematoma (60 cm2). Plan: After subcutaneous debridement and saline, Epifix not placed today. Due to there not being much improvement in the ulcer and there being a large amount of epithelialization will obtain wound cultures today. Will do silver dressing changes daily. Wash area daily with soap and water. Use a Tubigrip for compression. Keep left leg elevated when sitting. She is finished with her Levaquin. The operative culture was negative. Encourage nutritional peres pplementation with protein to help the healing process. Followup 1 week.
[2018-04-13 13:05] VITALS: BP 131/93; PULSE 84; RESP 16; TEMP 35.5
--- NOTE | 2018-04-13 13:32 | PCM.WC.PN ---
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 Current Visit: Yes Code(s): L97.922 - Non-pressure chronic ulcer of unspecified part of left lower leg with fat layer exposed (2) Chronic anticoagulation Status: Chronic Current Visit: Yes Code(s): Z79.01 - skilled nursing (current) use of 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s (3) Hematoma of left lower extremity Status: Acute Current Visit: No Code(s): S80.12XA - Contusion of left lower leg, initial encounter (4) Paroxysmal atrial fibrillation Status: Chronic Current Visit: No Code(s): I48.0 - Paroxysmal atrial fibrillation Type of Wound Date of Service: 04/13/18 Chief Complaint: Nonhealing hematoma ulcer left lower anteromedial leg. History of Wound: Surgery 12/08/17 - Surgical preparation left lower anteromedial leg with incision and drainage and excisional debridement traumatic hematoma (60 cm2). Wound care - Epifix and Tubigrip compression. Operative culture - negative. Was treated perioperatively with Levaquin and has finished them. Encourage nutritional supplementation with protein to help the healing process. Today she denies any fever. Her appetite is good. Progress of Wound: Minimal improvement. - Physical Exam Vital Signs Temp Pulse Resp BP 95.9 F L 84 16 131/93 H 04/13/18 13:05 04/13/18 13:05 04/13/18 13:05 04/13/18 13:05 General: Alert, Oriented x3, Cooperative HEENT: Atraumatic Extremities: No edema, Capillary Refill Less than 3 Seconds, Peripheral Pulses Normal Skin: Ulcer/ Wound - Left lower leg Wound Measurements and Assessment WC - Nurse 1 - General Ulcer Measurement Start: 03/30/18 13:23 Freq: Status: Active Protocol: Activity Type Activity Date Activity User E-Sign Co-Sign Detail Recorded Client Recorded Date Recorded By Document 04/13/18 13:05 [facility] [id number] 04/13/18 13:06 [facility] 04/13/18 13:05 Wound Center Nurse 1 [Ulcer Assessment] #1 L Med Lower Leg -Combined with other wound No -Current Size (cm) - Length 3.6 -Current Size (cm) - Width 1.3 -Current Size (cm) - Depth 0.1 -Total Square Cm 4.68 -Date of Last Picture (Recall this 04/13/18 field) -Photo Taken Yes -Epithelialization Small 1-33% -Tunneling No -Undermining/Tunneling No -Circular Undermining No -Exudate Amt Small (1-33%) -Exudate Type Serosanguineous -Wound Margin Distinct, Outline Attached -Granulation Amt Large (67-100%) -Granulation Quality Red -Slough/Fibrin No -Necrosis Amt None Present (0 %) -Texture (Karen-wound Skin Appearance) Scarring -Moisture (Karen-wound Skin Appearance Dry/Scaly ) -Color (Karen-wound Skin Appearance) Assessed -Temperature (Karen-wound Skin No Abnormality Appearance) (Pt Warm) -Tenderness on Palpation (Karen-wound No Skin Appearance) -Ulcer Cleansing Rinsed/ Irrigated with Saline -Foul Odor after Cleansing No -Anesthetic Used 4% Lidocaine Solution [Edema Assessment] -Lower Limb Edema Present Yes -Left Calf (cm) 38.5 -Left Ankle (cm) 22 WC - Nurse 2 - General Ulcer CM Notes Start: 03/30/18 13:23 Freq: Status: Active Protocol: Activity Type Activity Date Activity User E-Sign Co-Sign Detail Recorded Client Recorded Date Recorded By Document 04/13/18 13:15 [id number] 04/13/18 13:17 04/13/18 13:15 Wound Center Nurse 2 [Procedure/Treatment] #1 L Med Lower Leg -Time 13:16 -Correct Patient Yes -Correct Side, Site, Position Yes -Correct Procedure Yes -Procedure Performed Yes -Type of Procedure Debridement -Clinical Debridement Subcutaneous -Post Debridement Size (cm) - Length 4.2 -Post Debridement Size (cm) - Width 1.7 -Post Debridement Size (cm) - Depth 0.1 -Total Square Cm 7.14 -Wound/Ulcer Outcome Not Healed -Ulcer Cleansing Rinsed/ Irrigated with Saline -Foul Odor after Cleansing No -Bioengineered Tissue No -Bleeding Controlled with Pressure -Treatment Response Procedure Tolerated Well [See Physician Procedure note for Specifics] Pain Scale: 0-10 Numeric [Pain] -Is Patient Pain Free? Yes Debridement Note Post-Debridement Measurements/Treatment WC - Nurse 2 - General Ulcer CM Notes Start: 03/30/18 13:23 Freq: Status: Active Protocol: Activity Type Activity Date Activity User E-Sign Co-Sign Detail Recorded Client Recorded Date Recorded By Document 04/06/18 15:50 [id number] 04/06/18 15:54 Document 04/13/18 13:15 [id number] 04/13/18 13:17 04/06/18 04/13/18 15:50 13:15 Wound Center Nurse 2 #1 L Med Lower Leg -Time 15:50 13:16 -Correct Patient Yes Yes -Correct Side, Site, Position Yes Yes -Correct Procedure Yes Yes -Procedure Performed Yes Yes -Type of Procedure Debridement Debridement -Clinical Debridement Subcutaneous Subcutaneous -Post Debridement Size (cm) - Length 4.7 4.2 -Post Debridement Size (cm) - Width 1.7 1.7 -Post Debridement Size (cm) - Depth 0.1 0.1 -Total Square Cm 7.99 7.14 -Wound/Ulcer Outcome Not Healed Not Healed -Ulcer Cleansing Rinsed/ Rinsed/ Irrigated with Irrigated with Saline Saline -Foul Odor after Cleansing No No -Bioengineered Tissue No No -Bleeding Controlled with Pressure Pressure -Treatment Response Procedure Procedure Tolerated Well Tolerated Well Pain Scale: 0-10 Numeric Is Patient Pain Free? Yes Yes Wound debrided: Left lower leg Laterality: Left Type of Debridement: Excisional debridement Anesthesia Used: 4% Lidocaine Solution Depth: Down to and including healthy tissue, in the subcutaneous layer Percentage of wound debrided: 100 Severity: Fat Layer Exposed Amount of bleeding with debridement: Mild Bleeding Controlled with: Pressure Patient tolerated procedure well Assessment/Plan Active Problems 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) Chronic anticoagulation (Chronic) Assessment: 1. Nonhealing hematoma ulcer left lower anteromedial leg. 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 3. s/p surgical preparation left lower anteromedial leg with incision and drainage and excisional debridement traumatic hematoma (60 cm2). Plan: After subcutaneous debridement and saline, Epifix not placed today. Cultures grew Staphylococcus epidermis and Corynebacterium urealyticum. Will start Doxycylcine twice daily. Wash area daily with soap and water. Apply Aquacel- AG daily. Will start using Epifix again next week after she has been on antibiotics for a week. Use a Tubigrip for compression. Keep left leg elevated when sitting. The operative culture was negative. Encourage nutritional supplementation with protein to help the healing process. Followup 1 week. Code Visit [id number]: [id number] Humera subq tissue 20 sq cm/<
--- NOTE | 2018-04-13 13:37 | PN.PCM_ITS ---
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 Current Visit: Yes Code(s): L97.922 - Non-pressure chronic ulcer of unspecified part of left lower leg with fat layer exposed (2) Chronic anticoagulation Status: Chronic Current Visit: Yes Code(s): Z79.01 - USP (current) use of 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s (3) Hematoma of left lower extremity Status: Acute Current Visit: No Code(s): S80.12XA - Contusion of left lower leg, initial encounter (4) Paroxysmal atrial fibrillation Status: Chronic Current Visit: No Code(s): I48.0 - Paroxysmal atrial fibrillation Type of Wound Date of Service: 04/13/18 Chief Complaint: Nonhealing hematoma ulcer left lower anteromedial leg. History of Wound: Surgery 12/08/17 - Surgical preparation left lower anteromedial leg with incision and drainage and excisional debridement traumatic hematoma (60 cm2). Wound care - Epifix and Tubigrip compression. Operative culture - negative. Was treated perioperatively with Levaquin and has finished them. Encourage nutritional supplementation with protein to help the healing process. Today she denies any fever. Her appetite is good. Progress of Wound: Minimal improvement. - Physical Exam Vital Signs Temp Pulse Resp BP 95.9 F L 84 16 131/93 H 04/13/18 13:05 04/13/18 13:05 04/13/18 13:05 04/13/18 13:05 General: Alert, Oriented x3, Cooperative HEENT: Atraumatic Extremities: No edema, Capillary Refill Less than 3 Seconds, Peripheral Pulses Normal Skin: Ulcer/ Wound - Left lower leg Wound Measurements and Assessment WC - Nurse 1 - General Ulcer Measurement Start: 03/30/18 13:23 Freq: Status: Active Protocol: Activity Type Activity Date Activity User E-Sign Co-Sign Detail Recorded Client Recorded Date Recorded By Document 04/13/18 13:05 [facility] [id number] 04/13/18 13:06 [facility] 04/13/18 13:05 Wound Center Nurse 1 [Ulcer Assessment] #1 L Med Lower Leg -Combined with other wound No -Current Size (cm) - Length 3.6 -Current Size (cm) - Width 1.3 -Current Size (cm) - Depth 0.1 -Total Square Cm 4.68 -Date of Last Picture (Recall this 04/13/18 field) -Photo Taken Yes -Epithelialization Small 1-33% -Tunneling No -Undermining/Tunneling No -Circular Undermining No -Exudate Amt Small (1-33%) -Exudate Type Serosanguineous -Wound Margin Distinct, Outline Attached -Granulation Amt Large (67-100%) -Granulation Quality Red -Slough/Fibrin No -Necrosis Amt None Present (0 %) -Texture (Karen-wound Skin Appearance) Scarring -Moisture (Karen-wound Skin Appearance Dry/Scaly ) -Color (Karen-wound Skin Appearance) Assessed -Temperature (Karen-wound Skin No Abnormality Appearance) (Pt Warm) -Tenderness on Palpation (Karen-wound No Skin Appearance) -Ulcer Cleansing Rinsed/ Irrigated with Saline -Foul Odor after Cleansing No -Anesthetic Used 4% Lidocaine Solution [Edema Assessment] -Lower Limb Edema Present Yes -Left Calf (cm) 38.5 -Left Ankle (cm) 22 WC - Nurse 2 - General Ulcer CM Notes Start: 03/30/18 13:23 Freq: Status: Active Protocol: Activity Type Activity Date Activity User E-Sign Co-Sign Detail Recorded Client Recorded Date Recorded By Document 04/13/18 13:15 [id number] 04/13/18 13:17 04/13/18 13:15 Wound Center Nurse 2 [Procedure/Treatment] #1 L Med Lower Leg -Time 13:16 -Correct Patient Yes -Correct Side, Site, Position Yes -Correct Procedure Yes -Procedure Performed Yes -Type of Procedure Debridement -Clinical Debridement Subcutaneous -Post Debridement Size (cm) - Length 4.2 -Post Debridement Size (cm) - Width 1.7 -Post Debridement Size (cm) - Depth 0.1 -Total Square Cm 7.14 -Wound/Ulcer Outcome Not Healed -Ulcer Cleansing Rinsed/ Irrigated with Saline -Foul Odor after Cleansing No -Bioengineered Tissue No -Bleeding Controlled with Pressure -Treatment Response Procedure Tolerated Well [See Physician Procedure note for Specifics] Pain Scale: 0-10 Numeric [Pain] -Is Patient Pain Free? Yes Debridement Note Post-Debridement Measurements/Treatment WC - Nurse 2 - General Ulcer CM Notes Start: 03/30/18 13:23 Freq: Status: Active Protocol: Activity Type Activity Date Activity User E-Sign Co-Sign Detail Recorded Client Recorded Date Recorded By Document 04/06/18 15:50 [id number] 04/06/18 15:54 Document 04/13/18 13:15 [id number] 04/13/18 13:17 04/06/18 04/13/18 15:50 13:15 Wound Center Nurse 2 #1 L Med Lower Leg -Time 15:50 13:16 -Correct Patient Yes Yes -Correct Side, Site, Position Yes Yes -Correct Procedure Yes Yes -Procedure Performed Yes Yes -Type of Procedure Debridement Debridement -Clinical Debridement Subcutaneous Subcutaneous -Post Debridement Size (cm) - Length 4.7 4.2 -Post Debridement Size (cm) - Width 1.7 1.7 -Post Debridement Size (cm) - Depth 0.1 0.1 -Total Square Cm 7.99 7.14 -Wound/Ulcer Outcome Not Healed Not Healed -Ulcer Cleansing Rinsed/ Rinsed/ Irrigated with Irrigated with Saline Saline -Foul Odor after Cleansing No No -Bioengineered Tissue No No -Bleeding Controlled with Pressure Pressure -Treatment Response Procedure Procedure Tolerated Well Tolerated Well Pain Scale: 0-10 Numeric Is Patient Pain Free? Yes Yes Wound debrided: Left lower leg Laterality: Left Type of Debridement: Excisional debridement Anesthesia Used: 4% Lidocaine Solution Depth: Down to and including healthy tissue, in the subcutaneous layer Percentage of wound debrided: 100 Severity: Fat Layer Exposed Amount of bleeding with debridement: Mild Bleeding Controlled with: Pressure Patient tolerated procedure well Assessment/Plan Active Problems 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) Chronic anticoagulation (Chronic) Assessment: 1. Nonhealing hematoma ulcer left lower anteromedial leg. 2. USP used of 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 therapy for atrial fibrillation. 3. s/p surgical preparation left lower anteromedial leg with incision and drainage and excisional debridement traumatic hematoma (60 cm2). Plan: After subcutaneous debridement and saline, Epifix not placed today. Cultures grew Staphylococcus epidermis and Corynebacterium urealyticum. Will start Doxycylcine twice daily. Wash area daily with soap and water. Apply Aquacel- AG daily. Will start using Epifix again next week after she has been on antibiotics for a week. Use a Tubigrip for compression. Keep left leg elevated when sitting. The operative culture was negative. Encourage nutritional supplementation with protein to help the healing process. Followup 1 week. Code Visit 111xxx-113xx: [id number] Humera subq tissue 20 sq cm/<
[2018-04-20 14:38] VITALS: BP 125/76; PULSE 73; RESP 16; TEMP 36.1
--- NOTE | 2018-04-21 16:13 | PN.PCM_ITS ---
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 Current Visit: Yes Code(s): L97.922 - Non-pressure chronic ulcer of unspecified part of left lower leg with fat layer exposed (2) Chronic anticoagulation Status: Chronic Current Visit: Yes Code(s): Z79.01 - senior living (current) use of 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s (3) Hematoma of left lower extremity Status: Acute Current Visit: No Code(s): S80.12XA - Contusion of left lower leg, initial encounter (4) Paroxysmal atrial fibrillation Status: Chronic Current Visit: No Code(s): I48.0 - Paroxysmal atrial fibrillation Type of Wound Date of Service: 04/20/18 Chief Complaint: Nonhealing hematoma ulcer left lower anteromedial leg. History of Wound: Surgery 12/08/17 - Surgical preparation left lower anteromedial leg with incision and drainage and excisional debridement traumatic hematoma (60 cm2). Wound care - Epifix and Tubigrip compression. Operative culture - negative. Was treated perioperatively with Levaquin and has finished them. 04/05/18 wound culture had rare amount Staphylococcus epidermis and Corynebacterium urealyticum. She was started on Doxycycline but did no tolerated it. Stopped Epifix during the infection and using daily silver dressing. Encourage nutritional supplementation with protein to help the healing process. Today she denies any fever. Her appetite is good. Progress of Wound: Improving. - Physical Exam Vital Signs Temp Pulse Resp BP 96.9 F L 73 16 125/76 H 04/20/18 14:38 04/20/18 14:38 04/20/18 14:38 04/20/18 14:38 General: Alert, Oriented x3, Cooperative HEENT: Atraumatic Oral: Moist Mucosa Lungs: Normal air movement Cardiovascular: Regular rate Skin: Ulcer/ Wound - Left lower anterior leg Wound Measurements and Assessment WC - Nurse 1 - General Ulcer Measurement Start: 03/30/18 13:23 Freq: Status: Active Protocol: Activity Type Activity Date Activity User E-Sign Co-Sign Detail Recorded Client Recorded Date Recorded By Document 04/20/18 14:38 [id number] 04/20/18 14:46 CS 04/20/18 14:38 Wound Center Nurse 1 [Ulcer Assessment] #1 L Med Lower Leg -Combined with other wound No -Current Size (cm) - Length 2.7 -Current Size (cm) - Width 1.2 -Current Size (cm) - Depth 0.1 -Total Square Cm 3.24 -Photo Taken No -Epithelialization Small 1-33% -Tunneling No -Undermining/Tunneling No -Circular Undermining No -Exudate Amt Small (1-33%) -Exudate Type Serosanguineous -Wound Margin Distinct, Outline Attached -Granulation Amt Medium (34-66%) -Granulation Quality [place] -Slough/Fibrin Yes -Necrosis Amt Medium (34-66%) -Necrotic Tissue Type Adherent Slough -Structure Exposed None/Limited to Skin Breakdown -Texture (Karen-wound Skin Appearance) Scarring -Moisture (Karen-wound Skin Appearance Dry/Scaly ) -Color (Karen-wound Skin Appearance) No Abnormality Assessed -Temperature (Karen-wound Skin No Abnormality Appearance) (Pt Warm) -Tenderness on Palpation (Karen-wound No Skin Appearance) -Ulcer Cleansing Rinsed/ Irrigated with Saline -Foul Odor after Cleansing No -Anesthetic Used 4% Lidocaine Solution [Edema Assessment] -Lower Limb Edema Present No -Left Calf (cm) 38.5 -Left Ankle (cm) 23 WC - Nurse 2 - General Ulcer CM Notes Start: 03/30/18 13:23 Freq: Status: Active Protocol: Activity Type Activity Date Activity User E-Sign Co-Sign Detail Recorded Client Recorded Date Recorded By Document 04/20/18 16:01 [id number] 04/20/18 16:02 [email or web address] 04/20/18 16:01 Wound Center Nurse 2 [Procedure/Treatment] #1 L Med Lower Leg -Time 16:01 -Correct Patient Yes -Correct Side, Site, Position Yes -Correct Procedure Yes -Procedure Performed Yes -Type of Procedure Debridement -Clinical Debridement Subcutaneous -Post Debridement Size (cm) - Length 3.2 -Post Debridement Size (cm) - Width 1.7 -Post Debridement Size (cm) - Depth 0.1 -Total Square Cm 5.44 -Wound/Ulcer Outcome Not Healed -Ulcer Cleansing Rinsed/ Irrigated with Saline -Foul Odor after Cleansing No -Bioengineered Tissue No -Bleeding Controlled with Pressure -Treatment Response Procedure Tolerated Well [See Physician Procedure note for Specifics] Pain Scale: 0-10 Numeric [Pain] -Is Patient Pain Free? Yes Musculoskeletal: No Tenderness to Palpation of Joints or Extremities Neurological: Neuro grossly intact Psych/Mental Status: Normal Affect, Appropriate Debridement Note Post-Debridement Measurements/Treatment WC - Nurse 2 - General Ulcer CM Notes Start: 03/30/18 13:23 Freq: Status: Active Protocol: Activity Type Activity Date Activity User E-Sign Co-Sign Detail Recorded Client Recorded Date Recorded By Document 04/06/18 15:50 [id number] 04/06/18 15:54 Document 04/13/18 13:15 [id number] 04/13/18 13:17 Document 04/20/18 16:01 [id number] 04/20/18 16:02 04/06/18 04/13/18 04/20/18 15:50 13:15 16:01 Wound Center Nurse 2 #1 L Med Lower Leg -Time 15:50 13:16 16:01 -Correct Patient Yes Yes Yes -Correct Side, Site, Position Yes Yes Yes -Correct Procedure Yes Yes Yes -Procedure Performed Yes Yes Yes -Type of Procedure Debridement Debridement Debridement -Clinical Debridement Subcutaneous Subcutaneous Subcutaneous -Post Debridement Size (cm) - Length 4.7 4.2 3.2 -Post Debridement Size (cm) - Width 1.7 1.7 1.7 -Post Debridement Size (cm) - Depth 0.1 0.1 0.1 -Total Square Cm 7.99 7.14 5.44 -Wound/Ulcer Outcome Not Healed Not Healed Not Healed -Ulcer Cleansing Rinsed/ Rinsed/ Rinsed/ Irrigated with Irrigated with Irrigated with Saline Saline Saline -Foul Odor after Cleansing No No No -Bioengineered Tissue No No No -Bleeding Controlled with Pressure Pressure Pressure -Treatment Response Procedure Procedure Procedure Tolerated Well Tolerated Well Tolerated Well Pain Scale: 0-10 Numeric Is Patient Pain Free? Yes Yes Yes Wound debrided: Left lower anterior leg Laterality: Left Type of Debridement: Excisional debridement Anesthesia Used: 4% Lidocaine Solution Depth: Down to and including healthy tissue, in the subcutaneous layer Percentage of wound debrided: 100 Instrument Used: 3mm curette Tissue Removed: Subcutaneous tissue, slough and hypergranulation Severity: Limited To Skin Breakdown Amount of bleeding with debridement: Mild Bleeding Controlled with: Pressure Patient tolerated procedure well Debrided significant amount of hypergranulation tissue surrounding the open area. Assessment/Plan Active Problems 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) Chronic anticoagulation (Chronic) Assessment: 1. Nonhealing hematoma ulcer left lower anteromedial leg. 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 3. s/p surgical preparation left lower anteromedial leg with incision and drainage and excisional debridement traumatic hematoma (60 cm2). Plan: After subcutaneous debridement and saline, Epifix not placed today. Cultures grew Staphylococcus epidermis and Corynebacterium urealyticum. Started Doxycylcine twice daily, but she did not tolerate the antibiotics well. Since there were a small amount of organisms and they were resistant to other oral antibiotics, will treat with daily silver dressing changes. Wash area daily with soap and water. Apply Aquacel- AG daily. Will hold off on Epifix at this time. The wound currently is looking good with no pain with the silver dressing changes. Will continue to monitor closely. Use a Tubigrip for compression. Keep left leg elevated when sitting. The operative culture was negative. Encourage nutritional supplementation with protein to help the healing process. Followup 1 week. Code Visit 111xxx-113xx: [id number] Humera subq tissue 20 sq cm/<
== END 2018-04-23 23:59 ==
LOC: WC 13:00
PROVIDERS: Family Provider Family Medicine Geriatric Medicine; PCP Family Medicine Geriatric Medicine; Visit Provider Surgery
DX: S80.12XA Contusion of left lower leg, initial encounter (principal); X58.XXXA Exposure to other specified factors, initial encounter; I48.0 Paroxysmal atrial fibrillation; Z79.01 Long term (current) use of 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s; I10 Essential (primary) hypertension; E55.9 Vitamin D deficiency, unspecified
CPT/HCPCS: 11042; 15271; 36415; 80053; 82306; 84443; 85025; 87070; 87075; 87077; 87186; 87205; Q4131

== ENCOUNTER 2018-05-11 13:00 | Outpatient (RCR) | payer MEDICARE, OTHER, SELFPAY ==
[2018-04-24 01:05] VITALS: BP 125/76; PULSE 73; RESP 16; TEMP 36.1
[2018-04-27 14:34] VITALS: RESP 16
--- NOTE | 2018-04-27 16:24 | PN.PCM_ITS ---
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 Code(s): L97.922 - Non-pressure chronic ulcer of unspecified part of left lower leg with fat layer exposed (2) Chronic anticoagulation Status: Chronic Code(s): Z79.01 - care home (current) use of 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s Type of Wound Date of Service: 04/27/18 Chief Complaint: Nonhealing hematoma ulcer left lower anteromedial leg. History of Wound: Surgery 12/08/17 - Surgical preparation left lower anteromedial leg with incision and drainage and excisional debridement traumatic hematoma (60 cm2). Wound care - Epifix and Tubigrip compression. Operative culture - negative. Was treated perioperatively with Levaquin and has finished them. 04/05/18 wound culture had rare amount Staphylococcus epidermis and Corynebacterium urealyticum. She was started on Doxycycline but did no tolerated it. Stopped Epifix during the infection and using daily silver dressing. Encourage nutritional supplementation with protein to help the healing process. Today she denies any fever. Her appetite is good. Progress of Wound: Improving. - Physical Exam Vital Signs Temp Pulse Resp BP 96.9 F L 73 16 125/76 H 04/24/18 01:05 04/24/18 01:05 04/27/18 14:34 04/24/18 01:05 General: Alert, Oriented x3, Cooperative HEENT: Atraumatic, PERRLA Oral: Moist Mucosa Lungs: Normal air movement Cardiovascular: Regular rate Extremities: Capillary Refill Less than 3 Seconds, No Calf Tenderness, Edema - Mild non pitting edema Skin: Ulcer/ Wound - Left anterior lower leg Wound Measurements and Assessment WC - Nurse 1 - General Ulcer Measurement Start: 04/27/18 14:33 Freq: Status: Active Protocol: Activity Type Activity Date Activity User E-Sign Co-Sign Detail Recorded Client Recorded Date Recorded By Document 04/27/18 14:34 [id number] 04/27/18 14:40 04/27/18 14:34 Wound Center Nurse 1 [Ulcer Assessment] #1 L Med Lower Leg -Combined with other wound No -Current Size (cm) - Length 2.6 -Current Size (cm) - Width 1.4 -Current Size (cm) - Depth 0.1 -Total Square Cm 3.64 -Epithelialization Small 1-33% -Tunneling No -Undermining/Tunneling No -Circular Undermining No -Exudate Amt Small (1-33%) -Exudate Type Serosanguineous -Wound Margin Distinct, Outline Attached -Granulation Amt Medium (34-66%) -Granulation Quality Pale Red -Slough/Fibrin Yes -Necrosis Amt Small (1-33%) -Necrotic Tissue Type Adherent Slough -Structure Exposed None/Limited to Skin Breakdown -Texture (Karen-wound Skin Appearance) Scarring -Moisture (Karen-wound Skin Appearance No Abnormality ) Assessed -Color (Karen-wound Skin Appearance) Hemosiderin Staining -Temperature (Karen-wound Skin No Abnormality Appearance) (Pt Warm) -Tenderness on Palpation (Karen-wound No Skin Appearance) -Ulcer Cleansing Rinsed/ Irrigated with Saline -Foul Odor after Cleansing No -Anesthetic Used 4% Lidocaine Solution [Edema Assessment] -Lower Limb Edema Present No -Left Calf (cm) 37.5 -Left Ankle (cm) 21.5 WC - Nurse 2 - General Ulcer CM Notes Start: 04/27/18 14:33 Freq: Status: Active Protocol: Activity Type Activity Date Activity User E-Sign Co-Sign Detail Recorded Client Recorded Date Recorded By Document 04/27/18 15:10 [id number] 04/27/18 15:12 04/27/18 15:10 Wound Center Nurse 2 [Procedure/Treatment] #1 L Med Lower Leg -Time 15:11 -Correct Patient Yes -Correct Side, Site, Position Yes -Correct Procedure Yes -Procedure Performed Yes -Type of Procedure Debridement -Clinical Debridement Subcutaneous -Post Debridement Size (cm) - Length 2.8 -Post Debridement Size (cm) - Width 1.8 -Post Debridement Size (cm) - Depth 0.1 -Total Square Cm 5.04 -Wound/Ulcer Outcome Not Healed -Ulcer Cleansing Rinsed/ Irrigated with Saline -Foul Odor after Cleansing No -Bioengineered Tissue No [See Physician Procedure note for Specifics] Musculoskeletal: No Tenderness to Palpation of Joints or Extremities Neurological: Neuro grossly intact Psych/Mental Status: Normal Affect, Appropriate Debridement Note Post-Debridement Measurements/Treatment WC - Nurse 2 - General Ulcer CM Notes Start: 04/27/18 14:33 Freq: Status: Active Protocol: Activity Type Activity Date Activity User E-Sign Co-Sign Detail Recorded Client Recorded Date Recorded By Document 04/27/18 15:10 [id number] 04/27/18 15:12 04/27/18 15:10 Wound Center Nurse 2 #1 L Med Lower Leg -Time 15:11 -Correct Patient Yes -Correct Side, Site, Position Yes -Correct Procedure Yes -Procedure Performed Yes -Type of Procedure Debridement -Clinical Debridement Subcutaneous -Post Debridement Size (cm) - Length 2.8 -Post Debridement Size (cm) - Width 1.8 -Post Debridement Size (cm) - Depth 0.1 -Total Square Cm 5.04 -Wound/Ulcer Outcome Not Healed -Ulcer Cleansing Rinsed/ Irrigated with Saline -Foul Odor after Cleansing No -Bioengineered Tissue No Wound debrided: Left anterior lower leg Laterality: Left Type of Debridement: Excisional debridement Anesthesia Used: 4% Lidocaine Solution Depth: Down to and including healthy tissue, in the subcutaneous layer Instrument Used: 3mm curette Tissue Removed: Subcutaneous tissue and slough Severity: Fat Layer Exposed Amount of bleeding with debridement: Mild Patient tolerated procedure well Assessment/Plan Assessment: 1. Nonhealing hematoma ulcer left lower anteromedial leg. 2. care home used of 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 therapy for atrial fibrillation. 3. s/p surgical preparation left lower anteromedial leg with incision and drainage and excisional debridement traumatic hematoma (60 cm2). Plan: After subcutaneous debridement performed today and patient tolerated procedure well. Cultures grew Staphylococcus epidermis and Corynebacterium urealyticum. Started Doxycylcine twice daily, but she did not tolerate the antibiotics well. Since there were a small amount of organisms and they were resistant to other oral antibiotics, will treat with daily silver dressing changes. Patient instructed to wash area daily with soap and water. Apply Aquacel- AG daily. Since there is improvement in her wound will hold off on Epifix at this time. The wound currently is looking good with no pain with the silver dressing changes. Will continue to monitor closely. Use a Tubigrip for compression. Keep left leg elevated when sitting. The operative culture was negative. Encourage nutritional supplementation with protein to help the healing process. Followup 1 week. Code Visit 111xxx-113xx: [id number] Humera subq tissue 20 sq cm/<
[2018-05-04 14:28] VITALS: BP 119/67; PULSE 61; RESP 16; TEMP 36.7
--- NOTE | 2018-05-04 16:51 | PN.PCM_ITS ---
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 Current Visit: Yes Code(s): L97.922 - Non-pressure chronic ulcer of unspecified part of left lower leg with fat layer exposed (2) Chronic anticoagulation Status: Chronic Current Visit: Yes Code(s): Z79.01 - [facility] (current) use of 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s Type of Wound Date of Service: 05/04/18 Chief Complaint: Nonhealing hematoma ulcer left lower anteromedial leg. History of Wound: Surgery 12/08/17 - Surgical preparation left lower anteromedial leg with incision and drainage and excisional debridement traumatic hematoma (60 cm2). Wound care - Epifix and Tubigrip compression. Operative culture - negative. Was treated perioperatively with Levaquin and has finished them. 04/05/18 wound culture had rare amount Staphylococcus epidermis and Corynebacterium urealyticum. She was started on Doxycycline but did no tolerated it. Stopped Epifix during the infection and using daily silver dressing. Encourage nutritional supplementation with protein to help the healing process. Today she denies any fever. Her appetite is good. Progress of Wound: Improving. - Physical Exam Vital Signs Temp Pulse Resp BP 98.0 F 61 16 119/67 05/04/18 14:28 05/04/18 14:28 05/04/18 14:28 05/04/18 14:28 General: Alert, Oriented x3, Cooperative HEENT: Atraumatic Lungs: Normal air movement Cardiovascular: Regular rate Extremities: No edema, Capillary Refill Less than 3 Seconds, Peripheral Pulses Normal Skin: Ulcer/ Wound - Left lower anterior leg Wound Measurements and Assessment WC - Nurse 1 - General Ulcer Measurement Start: 04/27/18 14:33 Freq: Status: Active Protocol: Activity Type Activity Date Activity User E-Sign Co-Sign Detail Recorded Client Recorded Date Recorded By Document 05/04/18 14:28 [id number] 05/04/18 14:30 05/04/18 14:28 Wound Center Nurse 1 [Ulcer Assessment] #1 L Med Lower Leg -Combined with other wound No -Current Size (cm) - Length 2.4 -Current Size (cm) - Width 1.1 -Current Size (cm) - Depth 0.1 -Total Square Cm 2.64 -Photo Taken No -Epithelialization Small 1-33% -Tunneling No -Undermining/Tunneling No -Circular Undermining No -Exudate Amt None Present (0 %) -Wound Margin Distinct, Outline Attached -Granulation Amt Medium (34-66%) -Granulation Quality Pale [place] -Slough/Fibrin Yes -Necrosis Amt None Present (0 %) -Necrotic Tissue Type Adherent Slough -Structure Exposed None/Limited to Skin Breakdown -Texture (Karen-wound Skin Appearance) Scarring -Moisture ([place]-wound Skin Appearance No Abnormality ) Assessed -Color (Karen-wound Skin Appearance) No Abnormality Assessed -Temperature (Karen-wound Skin No Abnormality Appearance) (Pt Warm) -Tenderness on Palpation (Karen-wound No Skin Appearance) -Ulcer Cleansing Rinsed/ Irrigated with Saline -Foul Odor after Cleansing No -Anesthetic Used 4% Lidocaine Solution [Edema Assessment] -Lower Limb Edema Present No -Left Calf (cm) 38.6 -Left Ankle (cm) 22 WC - Nurse 2 - General Ulcer CM Notes Start: 04/27/18 14:33 Freq: Status: Active Protocol: Activity Type Activity Date Activity User E-Sign Co-Sign Detail Recorded Client Recorded Date Recorded By Document 05/04/18 14:39 [id number] 05/04/18 14:40 05/04/18 14:39 Wound Center Nurse 2 [Procedure/Treatment] #1 L Med Lower Leg -Time 14:39 -Correct Patient Yes -Correct Side, Site, Position Yes -Correct Procedure Yes -Procedure Performed Yes -Type of Procedure Debridement -Clinical Debridement Subcutaneous -Post Debridement Size (cm) - Length 2.4 -Post Debridement Size (cm) - Width 1.4 -Post Debridement Size (cm) - Depth 0.1 -Total Square Cm 3.36 -Wound/Ulcer Outcome Not Healed -Ulcer Cleansing Rinsed/ Irrigated with Saline -Foul Odor after Cleansing No -Bioengineered Tissue No -Bleeding Controlled with Pressure -Offloading No -Treatment Response Procedure Tolerated Well [See Physician Procedure note for Specifics] Pain Scale: 0-10 Numeric [Pain] -Is Patient Pain Free? Yes Musculoskeletal: No Tenderness to Palpation of Joints or Extremities Neurological: Neuro grossly intact Psych/Mental Status: Normal Affect, Appropriate Debridement Note Post-Debridement Measurements/Treatment WC - Nurse 2 - General Ulcer CM Notes Start: 04/27/18 14:33 Freq: Status: Active Protocol: Activity Type Activity Date Activity User E-Sign Co-Sign Detail Recorded Client Recorded Date Recorded By Document 04/27/18 15:10 [id number] 04/27/18 15:12 Document 05/04/18 14:39 [id number] 05/04/18 14:40 04/27/18 05/04/18 15:10 14:39 Wound Center Nurse 2 #1 L Med Lower Leg -Time 15:11 14:39 -Correct Patient Yes Yes -Correct Side, Site, Position Yes Yes -Correct Procedure Yes Yes -Procedure Performed Yes Yes -Type of Procedure Debridement Debridement -Clinical Debridement Subcutaneous Subcutaneous -Post Debridement Size (cm) - Length 2.8 2.4 -Post Debridement Size (cm) - Width 1.8 1.4 -Post Debridement Size (cm) - Depth 0.1 0.1 -Total Square Cm 5.04 3.36 -Wound/Ulcer Outcome Not Healed Not Healed -Ulcer Cleansing Rinsed/ Rinsed/ Irrigated with Irrigated with Saline Saline -Foul Odor after Cleansing No No -Bioengineered Tissue No No -Bleeding Controlled with Pressure -Offloading No -Treatment Response Procedure Tolerated Well Pain Scale: 0-10 Numeric Is Patient Pain Free? Yes Wound debrided: Left anterior lower leg Laterality: Left Type of Debridement: Excisional debridement Anesthesia Used: 4% Lidocaine Solution Depth: Down to and including healthy tissue, in the subcutaneous layer Percentage of wound debrided: 100 Instrument Used: 3mm curette Tissue Removed: Subcutaneous tissue, slough and hypergrandulation Severity: Limited To Skin Breakdown Amount of bleeding with debridement: Mild Bleeding Controlled with: Pressure Patient tolerated procedure well Assessment/Plan Active Problems 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) Chronic anticoagulation (Chronic) Assessment: 1. Nonhealing hematoma ulcer left lower anteromedial leg. 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 3. s/p surgical preparation left lower anteromedial leg with incision and drainage and excisional debridement traumatic hematoma (60 cm2). Plan: After subcutaneous debridement performed today and patient tolerated procedure well. Cultures grew Staphylococcus epidermis and Corynebacterium urealyticum. Started Doxycylcine twice daily, but she did not tolerate the antibiotics well. Since there were a small amount of organisms and they were resistant to other oral antibiotics, will treat with daily silver dressing changes. Patient instructed to wash area daily with soap and water. Apply Aquacel- AG daily. Since there is improvement in her wound will hold off on Epifix at this time. The wound currently is looking good with no pain with the silver dressing changes. There was an increase this week with hypergranulation, but able to debride that down to healthy tissue. Will continue to monitor closely. Use a double layer Tubigrip for compression. Keep left leg elevated when sitting. The operative culture was negative. Encourage nutritional supplementation with protein to help the healing process. Followup 1 week. Code Visit 111xxx-113xx: [id number] Humera subq tissue 20 sq cm/<
[2018-05-11 13:27] VITALS: BP 110/58; PULSE 76; RESP 18; TEMP 37.1
--- NOTE | 2018-05-12 09:33 | PN.PCM_ITS ---
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 Current Visit: Yes Code(s): L97.922 - Non-pressure chronic ulcer of unspecified part of left lower leg with fat layer exposed (2) Chronic anticoagulation Status: Chronic Current Visit: Yes Code(s): Z79.01 - longterm (current) use of 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s Type of Wound Date of Service: 05/11/18 Chief Complaint: Nonhealing hematoma ulcer left lower anteromedial leg. History of Wound: Surgery 12/08/17 - Surgical preparation left lower anteromedial leg with incision and drainage and excisional debridement traumatic hematoma (60 cm2). Wound care - Epifix and Tubigrip compression. Operative culture - negative. Was treated perioperatively with Levaquin and has finished them. 04/05/18 wound culture had rare amount Staphylococcus epidermis and Corynebacterium urealyticum. She was started on Doxycycline but did no tolerated it. Stopped Epifix during the infection and using daily silver dressing. Encourage nutritional supplementation with protein to help the healing process. Today she denies any fever. Her appetite is good. Progress of Wound: Improving. - Physical Exam Vital Signs Temp Pulse Resp BP 98.7 F 76 18 110/58 L 05/11/18 13:27 05/11/18 13:27 05/11/18 13:27 05/11/18 13:27 General: Alert, Oriented x3, Cooperative HEENT: Atraumatic Oral: Moist Mucosa Lungs: Normal air movement Cardiovascular: Regular rate Extremities: Capillary Refill Less than 3 Seconds, No Calf Tenderness, Periph eral Pulses Normal Skin: Ulcer/ Wound - Left lower anterior leg. Wound Measurements and Assessment WC - Nurse 1 - General Ulcer Measurement Start: 04/27/18 14:33 Freq: Status: Active Protocol: Activity Type Activity Date Activity User E-Sign Co-Sign Detail Recorded Client Recorded Date Recorded By Document 05/11/18 13:27 [id number] 05/11/18 13:29 RB 05/11/18 13:27 Wound Center Nurse 1 [Ulcer Assessment] #1 L Med Lower Leg -Combined with other wound No -Current Size (cm) - Length 1.9 -Current Size (cm) - Width 1.1 -Current Size (cm) - Depth 0.1 -Total Square Cm 2.09 -Photo Taken No -Tunneling No -Undermining/Tunneling No -Circular Undermining No -Exudate Amt Small (1-33%) -Exudate Type Serosanguineous -Wound Margin Distinct, Outline Attached -Granulation Amt Medium (34-66%) -Granulation Quality [place] -Slough/Fibrin Yes -Necrosis Amt Small (1-33%) -Necrotic Tissue Type Adherent Slough -Structure Exposed N/A -Texture (Karen-wound Skin Appearance) Assessed -Moisture (Karen-wound Skin Appearance Assessed ) -Color (Karen-wound Skin Appearance) Assessed -Temperature (Karen-wound Skin No Abnormality Appearance) (Pt Warm) -Tenderness on Palpation (Karen-wound No Skin Appearance) -Ulcer Cleansing Rinsed/ Irrigated with Saline -Foul Odor after Cleansing No -Anesthetic Used 5% Lidocaine Gel [Edema Assessment] -Lower Limb Edema Present Yes -Left Calf (cm) 35.5 -Left Ankle (cm) 22 WC - Nurse 2 - General Ulcer CM Notes Start: 04/27/18 14:33 Freq: Status: Active Protocol: Activity Type Activity Date Activity User E-Sign Co-Sign Detail Recorded Client Recorded Date Recorded By Document 05/11/18 13:58 [id number] 05/11/18 13:59 05/11/18 13:58 Wound Center Nurse 2 [Procedure/Treatment] #1 L Med Lower Leg -Time 13:59 -Correct Patient Yes -Correct Side, Site, Position Yes -Correct Procedure Yes -Procedure Performed Yes -Type of Procedure Debridement -Clinical Debridement Subcutaneous -Post Debridement Size (cm) - Length 2.7 -Post Debridement Size (cm) - Width 1.6 -Post Debridement Size (cm) - Depth 0.1 -Total Square Cm 4.32 -Wound/Ulcer Outcome Not Healed -Ulcer Cleansing Rinsed/ Irrigated with Saline -Foul Odor after Cleansing No -Bioengineered Tissue No -Bleeding Controlled with Pressure -Offloading No -Treatment Response Procedure Tolerated Well [See Physician Procedure note for Specifics] Pain Scale: 0-10 Numeric [Pain] -Is Patient Pain Free? Yes Musculoskeletal: No Tenderness to Palpation of Joints or Extremities Neurological: Neuro grossly intact Psych/Mental Status: Normal Affect, Appropriate Debridement Note Post-Debridement Measurements/Treatment WC - Nurse 2 - General Ulcer CM Notes Start: 04/27/18 14:33 Freq: Status: Active Protocol: Activity Type Activity Date Activity User E-Sign Co-Sign Detail Recorded Client Recorded Date Recorded By Document 04/27/18 15:10 [id number] 04/27/18 15:12 Document 05/04/18 14:39 [id number] 05/04/18 14:40 Document 05/11/18 13:58 [id number] 05/11/18 13:59 04/27/18 05/04/18 05/11/18 15:10 14:39 13:58 Wound Center Nurse 2 #1 L [facility] Lower Leg -Time 15:11 14:39 13:59 -Correct Patient Yes Yes Yes -Correct Side, Site, Position Yes Yes Yes -Correct Procedure Yes Yes Yes -Procedure Performed Yes Yes Yes -Type of Procedure Debridement Debridement Debridement -Clinical Debridement Subcutaneous Subcutaneous Subcutaneous -Post Debridement Size (cm) - Length 2.8 2.4 2.7 -Post Debridement Size (cm) - Width 1.8 1.4 1.6 -Post Debridement Size (cm) - Depth 0.1 0.1 0.1 -Total Square Cm 5.04 3.36 4.32 -Wound/Ulcer Outcome Not Healed Not Healed Not Healed -Ulcer Cleansing Rinsed/ Rinsed/ Rinsed/ Irrigated with Irrigated with Irrigated with Saline Saline Saline -Foul Odor after Cleansing No No No -Bioengineered Tissue No No No -Bleeding Controlled with Pressure Pressure -Offloading No No -Treatment Response Procedure Procedure Tolerated Well Tolerated Well Pain Scale: 0-10 Numeric Is Patient Pain Free? Yes Yes Wound debrided: left lower anterior leg Laterality: Left Type of Debridement: Excisional debridement Anesthesia Used: 4% Lidocaine Solution Depth: Down to and including healthy tissue, in the subcutaneous layer Percentage of wound debrided: 100 Instrument Used: 3mm curette Tissue Removed: Subcutaneous tissue, slough and a thickened ridge around the edge. Severity: Fat Layer Exposed Amount of bleeding with debridement: Mild Bleeding Controlled with: Pressure, Compression and gauze Patient tolerated procedure well Assessment/Plan Active Problems 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) Chronic anticoagulation (Chronic) Assessment: 1. Nonhealing hematoma ulcer left lower anteromedial leg. 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 3. s/p surgical preparation left lower anteromedial leg with incision and drainage and excisional debridement traumatic hematoma (60 cm2). Plan: After subcutaneous debridement performed today and patient tolerated procedure well. Cultures grew Staphylococcus epidermis and Corynebacterium urealyticum. Started Doxycylcine twice daily, but she did not tolerate the antibiotics well. Since there were a small amount of organisms and they were resistant to other oral antibiotics, will treat with daily silver dressing changes. Patient instructed to wash area daily with soap and water. Apply Aquacel- AG daily. Since there is improvement in her wound will hold off on Epifix at this time. The wound currently is looking good with no pain with the silver dressing changes. There was an increase this week with hypergranulation, but able to debride that down to healthy tissue. Will continue to monitor closely. Use a double layer Tubigrip for compression. Keep left leg elevated when sitting. The operative culture was negative. Encourage nutritional supplementation with protein to help the healing process. Followup 3 weeks (due to the holidays). Code Visit 111xxx-113xx: [id number] Humera subq tissue 20 sq cm/<
== END 2018-05-24 23:59 ==
LOC: WC 13:00
PROVIDERS: Family Provider Family Medicine Geriatric Medicine; PCP Family Medicine Geriatric Medicine; Visit Provider Surgery
DX: S80.12XA Contusion of left lower leg, initial encounter (principal); X58.XXXA Exposure to other specified factors, initial encounter; Z79.01 Long term (current) use of 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s; I48.91 Unspecified atrial fibrillation
CPT/HCPCS: 11042

== ENCOUNTER → 2018-06-17 09:21 | Outpatient (CLI) | payer MEDICARE, OTHER, SELFPAY ==
--- NOTE | 2018-06-17 09:29 | MRI_ITS ---
STUDY: MRI BRAIN WITH AND WITHOUT CONTRAST REASON FOR EXAM: Female, 78 years old. meningioma, s/p gamma knife 01/28/2013. TECHNIQUE: Standardized multiplanar fat and water weighted pulse sequences were obtained. 8 ml of Gadavist contrast material was administered intravenously for the contrast portion of the examination. COMPARISON: March 06, 2016 and August 01, 2014 FINDINGS: Normal size of the ventricles and extra-axial spaces for the patient's age. Normal white matter tracts of the supratentorial brain. Normal bilateral basal ganglia. Normal thalami. Again noted is the nodular enhancement at the left planum sphenoidale with extension into the left cavernous sinus and orbital apex encircling the optic nerve. Evaluation is limited secondary to nondedicated thin cuts evaluation of this region however the lesion is grossly unchanged. Normal flow voids within the major intracranial circulation suggesting patency by spin echo criteria. Normal venous enhancement. There is no enhancing intra-axial or extra-axial abnormality. There is stable minimal pituitary enlargement with 4 mm hyperintense nodule inferiorly. Normal tectal plate and pineal gland. Normal midbrain, hilary and medulla. Normal cerebellum. Normal basal cisterns. Normal bilateral temporal bones. Normal bilateral internal auditory canals. Again noted is a stable 2.3 cm hyperintense high calvarium lesion. 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 Electronically Signed: Casie Jackson MD at 10:20 EST Tel , Service support ,
[2018-06-18 07:10] LABS: CREATININE FINGERSTICK 0.66 mg/dL (0.55-1.02); EGFR FINGERSTICK > 60 mL/min (>60)
== END ==
PROVIDERS: Family Provider Family Medicine Geriatric Medicine; PCP Family Medicine Geriatric Medicine
DX: D32.9 Benign neoplasm of meninges, unspecified (principal)
CPT/HCPCS: 70553; A9585

== ENCOUNTER 2018-06-22 13:30 | Outpatient (RCR) | payer MEDICARE, OTHER, SELFPAY ==
[2018-05-25 00:48] VITALS: BP 110/58; PULSE 76; RESP 18; TEMP 37.1
[2018-06-01 13:35] VITALS: BP 108/59; PULSE 71; RESP 16; TEMP 36.5
--- NOTE | 2018-06-01 14:18 | PCM.WC.PN ---
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 Current Visit: Yes Code(s): L97.922 - Non-pressure chronic ulcer of unspecified part of left lower leg with fat layer exposed (2) Chronic anticoagulation Status: Chronic Current Visit: Yes Code(s): Z79.01 - shelter (current) use of 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s Type of Wound Date of Service: 06/01/18 Chief Complaint: Nonhealing hematoma ulcer left lower anteromedial leg. History of Wound: Surgery 12/08/17 - Surgical preparation left lower anteromedial leg with incision and drainage and excisional debridement traumatic hematoma (60 cm2). Wound care - Epifix and Tubigrip compression. Operative culture - negative. Was treated perioperatively with Levaquin and has finished them. 04/05/18 wound culture had rare amount Staphylococcus epidermis and Corynebacterium urealyticum. She was started on Doxycycline but did no tolerated it. Stopped Epifix during the infection and using daily silver dressing. Encourage nutritional supplementation with protein to help the healing process. Today she denies any fever. Her appetite is good. Progress of Wound: Improving. - Physical Exam Vital Signs Temp Pulse Resp BP 97.7 F L 71 16 108/59 L 06/01/18 13:35 06/01/18 13:35 06/01/18 13:35 06/01/18 13:35 General: Alert, Oriented x3, Cooperative HEENT: Atraumatic Oral: Moist Mucosa Cardiovascular: Regular rate Extremities: No edema, Capillary Refill Less than 3 Seconds, Peripheral Pulses Normal Skin: Ulcer/ Wound - Left anterior lower extremity open area Wound Measurements and Assessment WC - Nurse 1 - General Ulcer Measurement Start: 06/01/18 13:35 Freq: Status: Active Protocol: Activity Type Activity Date Activity User E-Sign Co-Sign Detail Recorded Client Recorded Date Recorded By Document 06/01/18 13:35 [id number] 06/01/18 13:39 06/01/18 13:35 Wound Center Nurse 1 [Ulcer Assessment] #1 L Med Lower Leg -Combined with other wound No -Current Size (cm) - Length 1.3 -Current Size (cm) - Width 0.8 -Current Size (cm) - Depth 0.1 -Total Square Cm 1.04 -Date of Last Picture (Recall this 06/01/18 field) -Photo Taken Yes -Epithelialization Small 1-33% -Tunneling No -Undermining/Tunneling No -Circular Undermining No -Exudate Amt Small (1-33%) -Exudate Type Serosanguineous -Wound Margin Distinct, Outline Attached -Granulation Amt Medium (34-66%) -Granulation Quality Pale [place] -Slough/Fibrin Yes -Necrosis Amt Large (67-100%) -Necrotic Tissue Type Adherent Slough -Structure Exposed None/Limited to Skin Breakdown -Texture (Karen-wound Skin Appearance) Scarring -Moisture (Karen-wound Skin Appearance Dry/Scaly ) -Color (Karen-wound Skin Appearance) No Abnormality Assessed -Temperature (Karen-wound Skin No Abnormality Appearance) (Pt Warm) -Tenderness on Palpation (Karen-wound No Skin Appearance) -Ulcer Cleansing Rinsed/ Irrigated with Saline -Foul Odor after Cleansing No -Anesthetic Used 4% Lidocaine Solution [Edema Assessment] -Lower Limb Edema Present No -Left Calf (cm) 37 -Left Ankle (cm) 21.5 WC - Nurse 2 - General Ulcer CM Notes Start: 06/01/18 13:35 Freq: Status: Active Protocol: Activity Type Activity Date Activity User E-Sign Co-Sign Detail Recorded Client Recorded Date Recorded By Document 06/01/18 13:51 [id number] 06/01/18 13:52 06/01/18 13:51 Wound Center Nurse 2 [Procedure/Treatment] #1 L Med Lower Leg -Time 13:52 -Correct Patient Yes -Correct Side, Site, Position Yes -Correct Procedure Yes -Procedure Performed Yes -Type of Procedure Debridement -Clinical Debridement Subcutaneous -Post Debridement Size (cm) - Length 1.5 -Post Debridement Size (cm) - Width 0.8 -Post Debridement Size (cm) - Depth 0.1 -Total Square Cm 1.20 -Wound/Ulcer Outcome Not Healed -Ulcer Cleansing Rinsed/ Irrigated with Saline -Foul Odor after Cleansing No -Bioengineered Tissue No -Bleeding Controlled with Pressure -Offloading No -Treatment Response Procedure Tolerated Well [See Physician Procedure note for Specifics] Pain Scale: 0-10 Numeric [Pain] -Is Patient Pain Free? Yes Musculoskeletal: No Tenderness to Palpation of Joints or Extremities Neurological: Neuro grossly intact Psych/Mental Status: Normal Affect, Appropriate Debridement Note Post-Debridement Measurements/Treatment WC - Nurse 2 - General Ulcer CM Notes Start: 06/01/18 13:35 Freq: Status: Active Protocol: Activity Type Activity Date Activity User E-Sign Co-Sign Detail Recorded Client Recorded Date Recorded By Document 06/01/18 13:51 [email or web address] [id number] 06/01/18 13:52 [email or web address] 06/01/18 13:51 Wound Center Nurse 2 #1 L Med Lower Leg -Time 13:52 -Correct Patient Yes -Correct Side, Site, Position Yes -Correct Procedure Yes -Procedure Performed Yes -Type of Procedure Debridement -Clinical Debridement Subcutaneous -Post Debridement Size (cm) - Length 1.5 -Post Debridement Size (cm) - Width 0.8 -Post Debridement Size (cm) - Depth 0.1 -Total Square Cm 1.20 -Wound/Ulcer Outcome Not Healed -Ulcer Cleansing Rinsed/ Irrigated with Saline -Foul Odor after Cleansing No -Bioengineered Tissue No -Bleeding Controlled with Pressure -Offloading No -Treatment Response Procedure Tolerated Well Pain Scale: 0-10 Numeric Is Patient Pain Free? Yes Wound debrided: Left lower leg Laterality: Left Type of Debridement: Excisional debridement Anesthesia Used: 4% Lidocaine Solution Depth: Down to and including healthy tissue, in the subcutaneous layer Percentage of wound debrided: 100 Instrument Used: 3mm curette Tissue Removed: Subcutaneous tissue and slough Severity: Limited To Skin Breakdown Amount of bleeding with debridement: Mild Bleeding Controlled with: Pressure Patient tolerated procedure well Assessment/Plan Active Problems 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) Chronic anticoagulation (Chronic) Assessment: 1. Nonhealing hematoma ulcer left lower anteromedial leg. 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 3. s/p surgical preparation left lower anteromedial leg with incision and drainage and excisional debridement traumatic hematoma (60 cm2). Plan: After subcutaneous debridement performed today and patient tolerated procedure well. Cultures on 04/06/18 grew Staphylococcus epidermis and Corynebacterium urealyticum. Started Doxycylcine twice daily, but she did not tolerate the antibiotics well. Since there were a small amount of organisms and they were resistant to other oral antibiotics, will treat with daily silver dressing changes. Patient instructed to wash area daily with soap and water. Apply Aquacel- AG daily. Since there is improvement in her wound will hold off on Epifix at this time. The wound is improving using daily silver dressing changes. Use a double layer Tubigrip for compression. Keep left leg elevated when sitting. The operative culture was negative. Encourage nutritional supplementation with protein to help the healing process. Followup 1 week. Code Visit 111xxx-113xx: [id number] Humera subq tissue 20 sq cm/<
[2018-06-08 13:35] VITALS: BP 114/70; PULSE 65; RESP 18; TEMP 36
--- NOTE | 2018-06-08 14:25 | PCM.WC.PN ---
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 Current Visit: Yes Code(s): L97.922 - Non-pressure chronic ulcer of unspecified part of left lower leg with fat layer exposed (2) Chronic anticoagulation Status: Chronic Current Visit: Yes Code(s): Z79.01 - [facility] (current) use of 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s Type of Wound Date of Service: 06/07/18 Chief Complaint: Nonhealing hematoma ulcer left lower anteromedial leg. History of Wound: Surgery 12/08/17 - Surgical preparation left lower anteromedial leg with incision and drainage and excisional debridement traumatic hematoma (60 cm2). Wound care - Epifix and Tubigrip compression. Operative culture - negative. Was treated perioperatively with Levaquin and has finished them. 04/05/18 wound culture had rare amount Staphylococcus epidermis and Corynebacterium urealyticum. She was started on Doxycycline but did no tolerated it. Stopped Epifix during the infection and using daily silver dressing. Due to how dry her wound is now will switch her dressing to a collegen hydrogel with silver. Encourage nutritional supplementation with protein to help the healing process. Today she denies any fever. Her appetite is good. Progress of Wound: Improving. - Physical Exam Vital Signs Temp Pulse Resp BP 96.8 F L 65 18 114/70 06/08/18 13:35 06/08/18 13:35 06/08/18 13:35 06/08/18 13:35 General: Alert, Oriented x3, Cooperative HEENT: Atraumatic Oral: Moist Mucosa Lungs: Normal air movement Extremities: No edema, Capillary Refill Less than 3 Seconds, Peripheral Pulses Normal Skin: Ulcer/ Wound - Left anterior lower leg ulcer is improving. It is very dry. Wound Measurements and Assessment WC - Nurse 1 - General Ulcer Measurement Start: 06/01/18 13:35 Freq: Status: Active Protocol: Activity Type Activity Date Activity User E-Sign Co-Sign Detail Recorded Client Recorded Date Recorded By Document 06/08/18 13:35 AN [id number] 06/08/18 13:47 AN 06/08/18 13:35 Wound Center Nurse 1 [Ulcer Assessment] #1 L Med Lower Leg -Current Size (cm) - Length 1.8 -Current Size (cm) - Width 1.0 -Current Size (cm) - Depth 0.1 -Total Square Cm 1.80 -Photo Taken No -Epithelialization None Present -Tunneling No -Undermining/Tunneling No -Circular Undermining No -Classification - Thickness Full Thickness without Exposed Support Structure -Exudate Amt None Present -Wound Margin Distinct, Outline Attached -Granulation Amt Large (67-100%) -Granulation Quality Red -Slough/Fibrin Yes -Necrosis Amt Small (1-33%) -Necrotic Tissue Type Adherent Slough -Texture (Karen-wound Skin Appearance) No Abnormality -Moisture (Karen-wound Skin Appearance No Abnormality ) -Color (Karen-wound Skin Appearance) No Abnormality -Temperature (Karen-wound Skin No Abnormality Appearance) (Pt Warm) -Tenderness on Palpation (Karen-wound No Skin Appearance) -Ulcer Cleansing Rinsed/ Irrigated with Saline -Foul Odor after Cleansing No -Anesthetic Used 4% Lidocaine Solution [Edema Assessment] -Left Calf (cm) 40.2 -Left Ankle (cm) 23.4 WC - Nurse 2 - General Ulcer CM Notes Start: 06/01/18 13:35 Freq: Status: Active Protocol: Activity Type Activity Date Activity User E-Sign Co-Sign Detail Recorded Client Recorded Date Recorded By Document 06/08/18 14:09 [id number] 06/08/18 14:10 06/08/18 14:09 Wound Center Nurse 2 [Procedure/Treatment] #1 L Med Lower Leg -Time 14:09 -Correct Patient Yes -Correct Side, Site, Position Yes -Correct Procedure Yes -Procedure Performed Yes -Type of Procedure Debridement -Clinical Debridement Subcutaneous -Post Debridement Size (cm) - Length 0.3 -Post Debridement Size (cm) - Width 0.3 -Post Debridement Size (cm) - Depth 0.5 -Total Square Cm 0.09 -Wound/Ulcer Outcome Not Healed -Ulcer Cleansing Rinsed/ Irrigated with Saline -Foul Odor after Cleansing No -Bioengineered Tissue No -Bleeding Controlled with Pressure -Offloading No -Treatment Response Procedure Tolerated Well [See Physician Procedure note for Specifics] Pain Scale: 0-10 Numeric [Pain] -Is Patient Pain Free? Yes Musculoskeletal: No Tenderness to Palpation of Joints or Extremities Neurological: Neuro grossly intact Psych/Mental Status: Normal Affect, Appropriate Debridement Note Post-Debridement Measurements/Treatment WC - Nurse 2 - General Ulcer CM Notes Start: 06/01/18 13:35 Freq: Status: Active Protocol: Activity Type Activity Date Activity User E-Sign Co-Sign Detail Recorded Client Recorded Date Recorded By Document 06/01/18 13:51 [id number] 06/01/18 13:52 Document 06/08/18 14:09 [id number] 06/08/18 14:10 06/01/18 06/08/18 13:51 14:09 Wound Center Nurse 2 #1 L Med Lower Leg -Time 13:52 14:09 -Correct Patient Yes Yes -Correct Side, Site, Position Yes Yes -Correct Procedure Yes Yes -Procedure Performed Yes Yes -Type of Procedure Debridement Debridement -Clinical Debridement Subcutaneous Subcutaneous -Post Debridement Size (cm) - Length 1.5 0.3 -Post Debridement Size (cm) - Width 0.8 0.3 -Post Debridement Size (cm) - Depth 0.1 0.5 -Total Square Cm 1.20 0.09 -Wound/Ulcer Outcome Not Healed Not Healed -Ulcer Cleansing Rinsed/ Rinsed/ Irrigated with Irrigated with Saline Saline -Foul Odor after Cleansing No No -Bioengineered Tissue No No -Bleeding Controlled with Pressure Pressure -Offloading No No -Treatment Response Procedure Procedure Tolerated Well Tolerated Well Pain Scale: 0-10 Numeric Is Patient Pain Free? Yes Yes Wound debrided: Left lower anterior leg. Laterality: Left Type of Debridement: Excisional debridement Anesthesia Used: 4% Lidocaine Solution Depth: Down to and including healthy tissue, in the subcutaneous layer Percentage of wound debrided: 100 Instrument Used: 3mm curette Tissue Removed: Subcutaneous tissue and slough Severity: Limited To Skin Breakdown Amount of bleeding with debridement: Mild Bleeding Controlled with: Pressure Patient tolerated procedure well Assessment/Plan Active Problems 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) Chronic anticoagulation (Chronic) Assessment: 1. Nonhealing hematoma ulcer left lower anteromedial leg. 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 3. s/p surgical preparation left lower anteromedial leg with incision and drainage and excisional debridement traumatic hematoma (60 cm2). Plan: After subcutaneous debridement performed today and patient tolerated procedure well. Cultures on 04/06/18 grew Staphylococcus epidermis and Corynebacterium urealyticum. Started Doxycylcine twice daily, but she did not tolerate the antibiotics well. Since there were a small amount of organisms and they were resistant to other oral antibiotics, will treat with daily silver dressing changes. Patient instructed to wash area daily with soap and water. Stopping Aquacel silver due to how dry the wound bed is and will start a collagen hydrogel with silver (formally known as alix) daily. Use a double layer Tubigrip for compression. Keep left leg elevated when sitting. The operative culture was negative. Encourage nutritional supplementation with protein to help the healing process. Followup 1 week. Code Visit 111xxx-113xx: 62070 Humera subq tissue 20 sq cm/<
--- NOTE | 2018-06-08 14:31 | PN.PCM_ITS ---
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 Current Visit: Yes Code(s): L97.922 - Non-pressure chronic ulcer of unspecified part of left lower leg with fat layer exposed (2) Chronic anticoagulation Status: Chronic Current Visit: Yes Code(s): Z79.01 - half-way (current) use of 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s Type of Wound Date of Service: 06/07/18 Chief Complaint: Nonhealing hematoma ulcer left lower anteromedial leg. History of Wound: Surgery 12/08/17 - Surgical preparation left lower anteromedial leg with incision and drainage and excisional debridement traumatic hematoma (60 cm2). Wound care - Epifix and Tubigrip compression. Operative culture - negative. Was treated perioperatively with Levaquin and has finished them. 04/05/18 wound culture had rare amount Staphylococcus epidermis and Corynebacterium urealyticum. She was started on Doxycycline but did no tolerated it. Stopped Epifix during the infection and using daily silver dressing. Due to how dry her wound is now will switch her dressing to a collegen hydrogel with silver. Encourage nutritional supplementation with protein to help the healing process. Today she denies any fever. Her appetite is good. Progress of Wound: Improving. - Physical Exam Vital Signs Temp Pulse Resp BP 96.8 F L 65 18 114/70 06/08/18 13:35 06/08/18 13:35 06/08/18 13:35 06/08/18 13:35 General: Alert, Oriented x3, Cooperative HEENT: Atraumatic Oral: Moist Mucosa Lungs: Normal air movement Extremities: No edema, Capillary Refill Less than 3 Seconds, Peripheral Pulses Normal Skin: Ulcer/ Wound - Left anterior lower leg ulcer is improving. It is very dry. Wound Measurements and Assessment WC - Nurse 1 - General Ulcer Measurement Start: 06/01/18 13:35 Freq: Status: Active Protocol: Activity Type Activity Date Activity User E-Sign Co-Sign Detail Recorded Client Recorded Date Recorded By Document 06/08/18 13:35 AN [email or web address] 06/08/18 13:47 AN 06/08/18 13:35 Wound Center Nurse 1 [Ulcer Assessment] #1 L Med Lower Leg -Current Size (cm) - Length 1.8 -Current Size (cm) - Width 1.0 -Current Size (cm) - Depth 0.1 -Total Square Cm 1.80 -Photo Taken No -Epithelialization None Present -Tunneling No -Undermining/Tunneling No -Circular Undermining No -Classification - Thickness Full Thickness without Exposed Support Structure -Exudate Amt None Present -Wound Margin Distinct, Outline Attached -Granulation Amt Large (67-100%) -Granulation Quality Red -Slough/Fibrin Yes -Necrosis Amt Small (1-33%) -Necrotic Tissue Type Adherent Slough -Texture (Karen-wound Skin Appearance) No Abnormality -Moisture (Karen-wound Skin Appearance No Abnormality ) -Color (Karen-wound Skin Appearance) No Abnormality -Temperature (Karen-wound Skin No Abnormality Appearance) (Pt Warm) -Tenderness on Palpation (Karen-wound No Skin Appearance) -Ulcer Cleansing Rinsed/ Irrigated with Saline -Foul Odor after Cleansing No -Anesthetic Used 4% Lidocaine Solution [Edema Assessment] -Left Calf (cm) 40.2 -Left Ankle (cm) 23.4 WC - Nurse 2 - General Ulcer CM Notes Start: 06/01/18 13:35 Freq: Status: Active Protocol: Activity Type Activity Date Activity User E-Sign Co-Sign Detail Recorded Client Recorded Date Recorded By Document 06/08/18 14:09 [id number] 06/08/18 14:10 06/08/18 14:09 Wound Center Nurse 2 [Procedure/Treatment] #1 L Med Lower Leg -Time 14:09 -Correct Patient Yes -Correct Side, Site, Position Yes -Correct Procedure Yes -Procedure Performed Yes -Type of Procedure Debridement -Clinical Debridement Subcutaneous -Post Debridement Size (cm) - Length 0.3 -Post Debridement Size (cm) - Width 0.3 -Post Debridement Size (cm) - Depth 0.5 -Total Square Cm 0.09 -Wound/Ulcer Outcome Not Healed -Ulcer Cleansing Rinsed/ Irrigated with Saline -Foul Odor after Cleansing No -Bioengineered Tissue No -Bleeding Controlled with Pressure -Offloading No -Treatment Response Procedure Tolerated Well [See Physician Procedure note for Specifics] Pain Scale: 0-10 Numeric [Pain] -Is Patient Pain Free? Yes Musculoskeletal: No Tenderness to Palpation of Joints or Extremities Neurological: Neuro grossly intact Psych/Mental Status: Normal Affect, Appropriate Debridement Note Post-Debridement Measurements/Treatment WC - Nurse 2 - General Ulcer CM Notes Start: 06/01/18 13:35 Freq: Status: Active Protocol: Activity Type Activity Date Activity User E-Sign Co-Sign Detail Recorded Client Recorded Date Recorded By Document 06/01/18 13:51 [id number] 06/01/18 13:52 Document 06/08/18 14:09 [id number] 06/08/18 14:10 06/01/18 06/08/18 13:51 14:09 Wound Center Nurse 2 #1 L Med Lower Leg -Time 13:52 14:09 -Correct Patient Yes Yes -Correct Side, Site, Position Yes Yes -Correct Procedure Yes Yes -Procedure Performed Yes Yes -Type of Procedure Debridement Debridement -Clinical Debridement Subcutaneous Subcutaneous -Post Debridement Size (cm) - Length 1.5 0.3 -Post Debridement Size (cm) - Width 0.8 0.3 -Post Debridement Size (cm) - Depth 0.1 0.5 -Total Square Cm 1.20 0.09 -Wound/Ulcer Outcome Not Healed Not Healed -Ulcer Cleansing Rinsed/ Rinsed/ Irrigated with Irrigated with Saline Saline -Foul Odor after Cleansing No No -Bioengineered Tissue No No -Bleeding Controlled with Pressure Pressure -Offloading No No -Treatment Response Procedure Procedure Tolerated Well Tolerated Well Pain Scale: 0-10 Numeric Is Patient Pain Free? Yes Yes Wound debrided: Left lower anterior leg. Laterality: Left Type of Debridement: Excisional debridement Anesthesia Used: 4% Lidocaine Solution Depth: Down to and including healthy tissue, in the subcutaneous layer Percentage of wound debrided: 100 Instrument Used: 3mm curette Tissue Removed: Subcutaneous tissue and slough Severity: Limited To Skin Breakdown Amount of bleeding with debridement: Mild Bleeding Controlled with: Pressure Patient tolerated procedure well Assessment/Plan Active Problems 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) Chronic anticoagulation (Chronic) Assessment: 1. Nonhealing hematoma ulcer left lower anteromedial leg. 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 3. s/p surgical preparation left lower anteromedial leg with incision and drainage and excisional debridement traumatic hematoma (60 cm2). Plan: After subcutaneous debridement performed today and patient tolerated procedure well. Cultures on 04/06/18 grew Staphylococcus epidermis and Corynebacterium urealyticum. Started Doxycylcine twice daily, but she did not tolerate the antibiotics well. Since there were a small amount of organisms and they were resistant to other oral antibiotics, will treat with daily silver dressing changes. Patient instructed to wash area daily with soap and water. Stopping Aquacel silver due to how dry the wound bed is and will start a collagen hydrogel with silver (formally known as alix) daily. Use a double layer Tubigrip for compression. Keep left leg elevated when sitting. The operative culture was negative. Encourage nutritional supplementation with pro tein to help the healing process. Followup 1 week. Code Visit 111xxx-113xx: [id number] Humera subq tissue 20 sq cm/<
[2018-06-15 14:07] VITALS: BP 120/76; PULSE 80; RESP 18; TEMP 36.3
--- NOTE | 2018-06-15 14:49 | PN.PCM_ITS ---
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 Current Visit: Yes Code(s): L97.922 - Non-pressure chronic ulcer of unspecified part of left lower leg with fat layer exposed (2) Chronic anticoagulation Status: Chronic Current Visit: Yes Code(s): Z79.01 - half-way (current) use of 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s Type of Wound Date of Service: 06/15/18 Chief Complaint: Nonhealing hematoma ulcer left lower anteromedial leg. History of Wound: Surgery 12/08/17 - Surgical preparation left lower anteromedial leg with incision and drainage and excisional debridement traumatic hematoma (60 cm2). Wound care - Epifix and Tubigrip compression. Operative culture - negative. Was treated perioperatively with Levaquin and has finished them. 04/05/18 wound culture had rare amount Staphylococcus epidermis and Corynebacterium urealyticum. She was started on Doxycycline but did no tolerated it. Stopped Epifix during the infection and using daily silver dressing. Due to how dry her wound is now will switch her dressing to a collegen hydrogel with silver. Encourage nutritional supplementation with protein to help the healing process. Today she denies any fever. Her appetite is good. Progress of Wound: Improving. - Physical Exam Vital Signs Temp Pulse Resp BP 97.4 F L 80 18 120/76 06/15/18 14:07 06/15/18 14:07 06/15/18 14:07 06/15/18 14:07 General: Alert, Oriented x3, Cooperative HEENT: Atraumatic Oral: Moist Mucosa Lungs: Normal air movement Cardiovascular: Regular rate Extremities: No edema, Capillary Refill Less than 3 Seconds Skin: Ulcer/ Wound - Left lower leg Wound Measurements and Assessment WC - Nurse 1 - General Ulcer Measurement Start: 06/01/18 13:35 Freq: Status: Active Protocol: Activity Type Activity Date Activity User E-Sign Co-Sign Detail Recorded Client Recorded Date Recorded By Document 06/15/18 14:07 [email or web address] [id number] 06/15/18 14:14 DL 06/15/18 14:07 Wound Center Nurse 1 [Ulcer Assessment] #1 L Med Lower Leg -Current Size (cm) - Length 0.6 -Current Size (cm) - Width 0.4 -Current Size (cm) - Depth 0.1 -Total Square Cm 0.24 -Photo Taken No -Exudate Amt Small -Exudate Type Serosanguineous -Wound Margin Thickened -Granulation Amt Small (1-33%) -Granulation Quality [place] -Necrosis Amt Small (1-33%) -Necrotic Tissue Type Adherent Slough -Structure Exposed N/A -Texture (Karen-wound Skin Appearance) Scarring -Moisture (Karen-wound Skin Appearance Dry/Scaly ) -Color (Karen-wound Skin Appearance) Rubor -Temperature (Karen-wound Skin No Abnormality Appearance) (Pt Warm) -Tenderness on Palpation (Karen-wound No Skin Appearance) -Ulcer Cleansing Rinsed/ Irrigated with Saline -Foul Odor after Cleansing No -Anesthetic Used 5% Lidocaine Gel [Edema Assessment] -Left Calf (cm) 37.8 -Left Ankle (cm) 21 WC - Nurse 2 - General Ulcer CM Notes Start: 06/01/18 13:35 Freq: Status: Active Protocol: Activity Type Activity Date Activity User E-Sign Co-Sign Detail Recorded Client Recorded Date Recorded By Document 06/15/18 14:35 [email or web address] [id number] 06/15/18 14:37 TERRY 06/15/18 14:35 Wound Center Nurse 2 [Procedure/Treatment] #1 L Med Lower Leg -Time 14:35 -Correct Patient Yes -Correct Side, Site, Position Yes -Correct Procedure Yes -Procedure Performed Yes -Type of Procedure Debridement -Clinical Debridement Subcutaneous -Post Debridement Size (cm) - Length 1.1 -Post Debridement Size (cm) - Width 0.7 -Post Debridement Size (cm) - Depth 0.1 -Total Square Cm 0.77 -Wound/Ulcer Outcome Not Healed -Ulcer Cleansing Rinsed/ Irrigated with Saline -Foul Odor after Cleansing No -Bioengineered Tissue No -Type of bioengineered Tissue Apligraf -Bleeding Controlled with Pressure -Offloading No -Treatment Response Procedure Tolerated Well [See Physician Procedure note for Specifics] Pain Scale: 0-10 Numeric [Pain] -Is Patient Pain Free? Yes Musculoskeletal: No Tenderness to Palpation of Joints or Extremities Neurological: Neuro grossly intact Psych/Mental Status: Normal Affect, Appropriate Debridement Note Post-Debridement Measurements/Treatment - Nurse 2 - General Ulcer CM Notes Start: 06/01/18 13:35 Freq: Status: Active Protocol: Activity Type Activity Date Activity User E-Sign Co-Sign Detail Recorded Client Recorded Date Recorded By Document 06/01/18 13:51 [id number] 06/01/18 13:52 Document 06/08/18 14:09 [id number] 06/08/18 14:10 Document 06/15/18 14:35 [id number] 06/15/18 14:37 06/01/18 06/08/18 06/15/18 13:51 14:09 14:35 Wound Center Nurse 2 #1 L Med Lower Leg -Time 13:52 14:09 14:35 -Correct Patient Yes Yes Yes -Correct Side, Site, Position Yes Yes Yes -Correct Procedure Yes Yes Yes -Procedure Performed Yes Yes Yes -Type of Procedure Debridement Debridement Debridement -Clinical Debridement Subcutaneous Subcutaneous Subcutaneous -Post Debridement Size (cm) - Length 1.5 0.3 1.1 -Post Debridement Size (cm) - Width 0.8 0.3 0.7 -Post Debridement Size (cm) - Depth 0.1 0.5 0.1 -Total Square Cm 1.20 0.09 0.77 -Wound/Ulcer Outcome Not Healed Not Healed Not Healed -Ulcer Cleansing Rinsed/ Rinsed/ Rinsed/ Irrigated with Irrigated with Irrigated with Saline Saline Saline -Foul Odor after Cleansing No No No -Bioengineered Tissue No No No -Type of bioengineered Tissue Apligraf -Bleeding Controlled with Pressure Pressure Pressure -Offloading No No No -Treatment Response Procedure Procedure Procedure Tolerated Well Tolerated Well Tolerated Well Pain Scale: 0-10 Numeric Is Patient Pain Free? Yes Yes Yes Wound debrided: Left anterior lower leg Laterality: Left Type of Debridement: Excisional debridement Anesthesia Used: 4% Lidocaine Solution Depth: Down to and including healthy tissue, in the subcutaneous layer Percentage of wound debrided: 100 Instrument Used: 3mm curette Tissue Removed: Subcutaneous tissue and slough Severity: Limited To Skin Breakdown Amount of bleeding with debridement: Mild Bleeding Controlled with: Pressure Patient tolerated procedure well Assessment/Plan Active Problems 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) Chronic anticoagulation (Chronic) Assessment: 1. Nonhealing hematoma ulcer left lower anteromedial leg. 2. half-way used of 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 therapy for atrial fibrillation. 3. s/p surgical preparation left lower anteromedial leg with incision and drainage and excisional debridement traumatic hematoma (60 cm2). Plan: After subcutaneous debridement performed today and patient tolerated procedure well. Cultures on 11/13/18 grew Staphylococcus epidermis and Corynebacterium urealyticum. Started Doxycylcine twice daily, but she did not tolerate the antibiotics well. Since there were a small amount of organisms and they were resistant to other oral antibiotics, will treat with daily silver dressing changes. Patient instructed to wash area daily with soap and water. Stopping Aquacel silver due to how dry the wound bed is and will start a collagen hydrogel with silver (formally known as alix) daily. Will use adaptic wound veil to help keep the area moist. Use a double layer Tubigrip for compression. Keep left leg elevated when sitting. The operative culture was negative. Encourage nutritional supplementation with protein to help the healing process. Followup 1 week. Code Visit 111xxx-113xx: [id number] Humera subq tissue 20 sq cm/<
[2018-06-22 13:36] VITALS: BP 130/76; PULSE 74; RESP 18; TEMP 35.5
--- NOTE | 2018-06-22 14:01 | PN.PCM_ITS ---
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 History of Wound: Surgery 12/08/17 - Surgical preparation left lower anteromedial leg with incision and drainage and excisional debridement traumatic hematoma (60 cm2). Operative culture - negative. Was treated perioperatively with Levaquin and has finished them. 04/05/18 wound culture had rare amount Staphylococcus epidermis and Corynebacterium urealyticum. She was started on Doxycycline but did no tolerated it. Stopped Epifix during the infection and using daily silver dressing. Due to how dry her wound is now will switch her dressing to moistened Makenzie with adaptic wound veil and tubigrip for compression. Encourage nutritional supplementation with protein to help the healing process. Today she denies any fever. Her appetite is good. Progress of Wound: Improving. - Physical Exam Vital Signs Temp Pulse Resp BP 96 F L 74 18 130/76 H 06/22/18 13:36 06/22/18 13:36 06/22/18 13:36 06/22/18 13:36 General: Alert, Oriented x3, Cooperative HEENT: Atraumatic Oral: Moist Mucosa Lungs: Normal air movement Cardiovascular: Regular rate Extremities: No edema, Capillary Refill Less than 3 Seconds, Peripheral Pulses Normal Skin: Ulcer/ Wound - Left anterior lower leg ulcer Wound Measurements and Assessment WC - Nurse 1 - General Ulcer Measurement Start: 06/01/18 13:35 Freq: Status: Active Protocol: Activity Type Activity Date Activity User E-Sign Co-Sign Detail Recorded Client Recorded Date Recorded By Document 06/22/18 13:36 DL [id number] 06/22/18 13:41 DL 06/22/18 13:36 Wound Center Nurse 1 [Ulcer Assessment] #1 L Med Lower Leg -Current Size (cm) - Length 0.4 -Current Size (cm) - Width 0.3 -Current Size (cm) - Depth 0.1 -Total Square Cm 0.12 -Photo Taken No -Exudate Amt None Present -Wound Margin Thickened -Granulation Amt Large (67-100%) -Granulation Quality Hilda -Necrosis Amt None Present (0 %) -Structure Exposed N/A -Texture (Karen-wound Skin Appearance) Scarring -Moisture (Karen-wound Skin Appearance Dry/Scaly ) -Color (Karen-wound Skin Appearance) No Abnormality -Temperature (Karen-wound Skin No Abnormality Appearance) (Pt Warm) -Tenderness on Palpation (Karen-wound No Skin Appearance) -Ulcer Cleansing Rinsed/ Irrigated with Saline -Foul Odor after Cleansing No -Anesthetic Used 5% Lidocaine Gel [Edema Assessment] -Right Calf (cm) 39 -Right Ankle (cm) 24.2 -Left Calf (cm) 37.5 -Left Ankle (cm) 21.3 MIKE - Nurse 2 - General Ulcer CM Notes Start: 06/01/18 13:35 Freq: Status: Active Protocol: Activity Type Activity Date Activity User E-Sign Co-Sign Detail Recorded Client Recorded Date Recorded By Document 06/22/18 13:49 [id number] 06/22/18 13:50 06/22/18 13:49 Wound Center Nurse 2 [Procedure/Treatment] #1 L Med Lower Leg -Time 13:50 -Correct Patient Yes -Correct Side, Site, Position Yes -Correct Procedure Yes -Procedure Performed Yes -Type of Procedure Debridement -Clinical Debridement Subcutaneous -Post Debridement Size (cm) - Length 1.0 -Post Debridement Size (cm) - Width 0.4 -Post Debridement Size (cm) - Depth 0.1 -Total Square Cm 0.40 -Wound/Ulcer Outcome Not Healed -Ulcer Cleansing Rinsed/ Irrigated with Saline -Foul Odor after Cleansing No -Bioengineered Tissue No -Bleeding Controlled with Pressure -Offloading No -Treatment Response Procedure Tolerated Well [See Physician Procedure note for Specifics] Pain Scale: 0-10 Numeric [Pain] -Is Patient Pain Free? Yes Debridement Note Post-Debridement Measurements/Treatment - Nurse 2 - General Ulcer CM Notes Start: 06/01/18 13:35 Freq: Status: Active Protocol: Activity Type Activity Date Activity User E-Sign Co-Sign Detail Recorded Client Recorded Date Recorded By Document 06/01/18 13:51 [id number] 06/01/18 13:52 Document 06/08/18 14:09 [id number] 06/08/18 14:10 Document 06/15/18 14:35 [id number] 06/15/18 14:37 Document 06/22/18 13:49 [id number] 06/22/18 13:50 06/01/18 06/08/18 06/15/18 13:51 14:09 14:35 Wound Center Nurse 2 #1 L Med Lower Leg -Time 13:52 14:09 14:35 -Correct Patient Yes Yes Yes -Correct Side, Site, Position Yes Yes Yes -Correct Procedure Yes Yes Yes -Procedure Performed Yes Yes Yes -Type of Procedure Debridement Debridement Debridement -Clinical Debridement Subcutaneous Subcutaneous Subcutaneous -Post Debridement Size (cm) - Length 1.5 0.3 1.1 -Post Debridement Size (cm) - Width 0.8 0.3 0.7 -Post Debridement Size (cm) - Depth 0.1 0.5 0.1 -Total Square Cm 1.20 0.09 0.77 -Wound/Ulcer Outcome Not Healed Not Healed Not Healed -Ulcer Cleansing Rinsed/ Rinsed/ Rinsed/ Irrigated with Irrigated with Irrigated with Saline Saline Saline -Foul Odor after Cleansing No No No -Bioengineered Tissue No No No -Type of bioengineered Tissue Apligraf -Bleeding Controlled with Pressure Pressure Pressure -Offloading No No No -Treatment Response Procedure Procedure Procedure Tolerated Well Tolerated Well Tolerated Well Pain Scale: 0-10 Numeric Is Patient Pain Free? Yes Yes Yes 06/22/18 13:49 Wound Center Nurse 2 #1 L Med Lower Leg -Time 13:50 -Correct Patient Yes -Correct Side, Site, Position Yes -Correct Procedure Yes -Procedure Performed Yes -Type of Procedure Debridement -Clinical Debridement Subcutaneous -Post Debridement Size (cm) - Length 1.0 -Post Debridement Size (cm) - Width 0.4 -Post Debridement Size (cm) - Depth 0.1 -Total Square Cm 0.40 -Wound/Ulcer Outcome Not Healed -Ulcer Cleansing Rinsed/ Irrigated with Saline -Foul Odor after Cleansing No -Bioengineered Tissue No -Type of bioengineered Tissue -Bleeding Controlled with Pressure -Offloading No -Treatment Response Procedure Tolerated Well Pain Scale: 0-10 Numeric Is Patient Pain Free? Yes Wound debrided: Left anterior lower leg Laterality: Left Type of Debridement: Excisional debridement Anesthesia Used: 4% Lidocaine Solution Depth: Down to and including healthy tissue, in the subcutaneous layer Instrument Used: 5mm curette Tissue Removed: Subcutaneous tissue and slough Severity: Limited To Skin Breakdown Amount of bleeding with debridement: Mild Bleeding Controlled with: Pressure Patient tolerated procedure well Assessment/Plan Active Problems 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) Chronic anticoagulation (Chronic) Assessment: 1. Nonhealing hematoma ulcer left lower anteromedial leg. 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 3. s/p surgical preparation left lower anteromedial leg with incision and drainage and excisional debridement traumatic hematoma (60 cm2). Plan: After subcutaneous debridement performed today and patient tolerated procedure well. Cultures on 04/06/18 grew Staphylococcus epidermis and Corynebacterium urealyticum. Started Doxycylcine twice daily, but she did not tolerate the antibiotics well. Since there were a small amount of organisms and they were resistant to other oral antibiotics, will treat with daily silver dressing changes. Patient instructed to wash area daily with soap and water. Stopping Aquacel silver due to how dry the wound bed is and will use a moistened Makenzie and adaptic wound veil to help keep the area moist. Use a double layer Tubigrip for compression. The wound is improving. Keep left leg elevated when sitting. The operative culture was negative. Encourage nutritional supplementation with protein to help the healing process. Followup 1 week. Code Visit 111xxx-113xx: [id number] Humera subq tissue 20 sq cm/<
== END 2018-06-24 23:59 ==
LOC: WC 13:30
PROVIDERS: Family Provider Family Medicine Geriatric Medicine; PCP Family Medicine Geriatric Medicine; Visit Provider Surgery
DX: S80.12XA Contusion of left lower leg, initial encounter (principal); X58.XXXA Exposure to other specified factors, initial encounter; Z79.01 Long term (current) use of 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s; I48.91 Unspecified atrial fibrillation
CPT/HCPCS: 11042

== ENCOUNTER 2018-07-20 13:30 | Outpatient (RCR) | payer MEDICARE, OTHER, SELFPAY ==
[2018-06-25 01:09] VITALS: BP 130/76; PULSE 74; RESP 18; TEMP 35.5
[2018-06-29 13:36] VITALS: BP 124/72; PULSE 75; RESP 16; TEMP 36.3
--- NOTE | 2018-06-29 16:12 | PCM.WC.PN ---
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 History of Wound: Surgery 12/08/17 - Surgical preparation left lower anteromedial leg with incision and drainage and excisional debridement traumatic hematoma (60 cm2). Operative culture - negative. Was treated perioperatively with Levaquin and has finished them. 04/05/18 wound culture had rare amount Staphylococcus epidermis and Corynebacterium urealyticum. She was started on Doxycycline but did no tolerated it. Stopped Epifix during the infection and using daily silver dressing. Since her wound bed continues to be dry will stop moistened Makenzie and start collogen hydrogel with adaptic wound veil and tubigrip for compression. Encourage nutritional supplementation with protein to help the healing process. Today she denies any fever. Her appetite is good. Progress of Wound: Improving. - Physical Exam Vital Signs Temp Pulse Resp BP 97.3 F L 75 16 124/72 H 06/29/18 13:36 06/29/18 13:36 06/29/18 13:36 06/29/18 13:36 General: Alert, Oriented x3, Cooperative HEENT: Atraumatic Oral: Moist Mucosa Lungs: Normal air movement Cardiovascular: Regular rate Extremities: No edema, Capillary Refill Less than 3 Seconds Skin: Ulcer/ Wound - Left anterior lower leg Wound Measurements and Assessment WC - Nurse 1 - General Ulcer Measurement Start: 06/29/18 13:36 Freq: Status: Active Protocol: Activity Type Activity Date Activity User E-Sign Co-Sign Detail Recorded Client Recorded Date Recorded By Document 06/29/18 13:36 [facility] [id number] 06/29/18 13:43 [facility] 06/29/18 13:36 Wound Center Nurse 1 [Ulcer Assessment] #1 L Med Lower Leg -Combined with other wound No -Current Size (cm) - Length 1.2 -Current Size (cm) - Width 0.9 -Current Size (cm) - Depth 0.1 -Total Square Cm 1.08 -Date of Last Picture (Recall this 06/29/18 field) -Photo Taken Yes -Epithelialization None Present -Tunneling No -Undermining/Tunneling No -Circular Undermining No -Exudate Amt Small -Exudate Type Serous -Wound Margin Flat & Intact -Granulation Amt None Present (0 %) -Slough/Fibrin Yes -Necrosis Amt Large (67-100%) -Necrotic Tissue Type Adherent Slough -Texture (Karen-wound Skin Appearance) Scarring -Moisture (Karen-wound Skin Appearance Dry/Scaly ) -Color (Karen-wound Skin Appearance) Assessed -Temperature (Karen-wound Skin No Abnormality Appearance) (Pt Warm) -Tenderness on Palpation (Karen-wound No Skin Appearance) -Ulcer Cleansing Rinsed/ Irrigated with Saline -Foul Odor after Cleansing No -Anesthetic Used 5% Lidocaine Gel [Edema Assessment] -Lower Limb Edema Present Yes -Left Calf (cm) 39.7 -Left Ankle (cm) 22.1 WC - Nurse 2 - General Ulcer CM Notes Start: 06/29/18 13:36 Freq: Status: Active Protocol: Activity Type Activity Date Activity User E-Sign Co-Sign Detail Recorded Client Recorded Date Recorded By Document 06/29/18 14:07 TERRY [id number] 06/29/18 14:09 TERRY 06/29/18 14:07 Wound Center Nurse 2 [Procedure/Treatment] #1 L Med Lower Leg -Time 14:07 -Correct Patient Yes -Correct Side, Site, Position Yes -Correct Procedure Yes -Procedure Performed Yes -Type of Procedure Debridement -Clinical Debridement Subcutaneous -Post Debridement Size (cm) - Length 1.4 -Post Debridement Size (cm) - Width 0.6 -Post Debridement Size (cm) - Depth 0.1 -Total Square Cm 0.84 -Wound/Ulcer Outcome Not Healed -Ulcer Cleansing Rinsed/ Irrigated with Saline -Foul Odor after Cleansing No -Bioengineered Tissue No -Bleeding Controlled with Pressure -Offloading No -Treatment Response Procedure Tolerated Well [See Physician Procedure note for Specifics] Pain Scale: 0-10 Numeric [Pain] -Is Patient Pain Free? Yes Musculoskeletal: No Tenderness to Palpation of Joints or Extremities Neurological: Neuro grossly intact Psych/Mental Status: Normal Affect, Appropriate Debridement Note Post-Debridement Measurements/Treatment WC - Nurse 2 - General Ulcer CM Notes Start: 06/29/18 13:36 Freq: Status: Active Protocol: Activity Type Activity Date Activity User E-Sign Co-Sign Detail Recorded Client Recorded Date Recorded By Document 06/29/18 14:07 TERRY [id number] 06/29/18 14:09 TERRY 06/29/18 14:07 Wound Center Nurse 2 #1 L Med Lower Leg -Time 14:07 -Correct Patient Yes -Correct Side, Site, Position Yes -Correct Procedure Yes -Procedure Performed Yes -Type of Procedure Debridement -Clinical Debridement Subcutaneous -Post Debridement Size (cm) - Length 1.4 -Post Debridement Size (cm) - Width 0.6 -Post Debridement Size (cm) - Depth 0.1 -Total Square Cm 0.84 -Wound/Ulcer Outcome Not Healed -Ulcer Cleansing Rinsed/ Irrigated with Saline -Foul Odor after Cleansing No -Bioengineered Tissue No -Bleeding Controlled with Pressure -Offloading No -Treatment Response Procedure Tolerated Well Pain Scale: 0-10 Numeric Is Patient Pain Free? Yes Wound debrided: Left lower leg Laterality: Left Type of Debridement: Excisional debridement Anesthesia Used: 5% Lidocaine Gel Depth: Down to and including healthy tissue, in the subcutaneous layer Percentage of wound debrided: 100 Instrument Used: 3mm curette Tissue Removed: Subcutaneous tissue and slough Severity: Limited To Skin Breakdown Amount of bleeding with debridement: Mild Bleeding Controlled with: Pressure Patient tolerated procedure well Assessment/Plan Active Problems 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) Chronic anticoagulation (Chronic) Assessment: 1. Nonhealing hematoma ulcer left lower anteromedial leg. 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 3. s/p surgical preparation left lower anteromedial leg with incision and drainage and excisional debridement traumatic hematoma (60 cm2). Plan: After subcutaneous debridement performed today and patient tolerated procedure well. Cultures on 04/06/18 grew Staphylococcus epidermis and Corynebacterium urealyticum. Started Doxycylcine twice daily, but she did not tolerate the antibiotics well. Since there were a small amount of organisms and they were resistant to other oral antibiotics, will treat with daily silver dressing changes. Patient instructed to wash area daily with soap and water. Stopping moistened Makenzie due to how dry the wound bed is and will start collagen hydrogel and adaptic wound veil to help keep the area moist. Use a double layer Tubigrip for compression. The wound is improving. Keep left leg elevated when sitting. The operative culture was negative. Encourage nutritional supplementation with protein to help the healing process. Followup 1 week. Code Visit 111xxx-113xx: [id number] Humera subq tissue 20 sq cm/<
[2018-07-06 13:34] VITALS: BP 116/68; PULSE 70; RESP 16; TEMP 36.1
--- NOTE | 2018-07-06 15:50 | PCM.WC.PN ---
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 Current Visit: Yes Code(s): L97.922 - Non-pressure chronic ulcer of unspecified part of left lower leg with fat layer exposed (2) Chronic anticoagulation Status: Chronic Current Visit: Yes Code(s): Z79.01 - long-term (current) use of 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s Type of Wound Date of Service: 07/06/18 Chief Complaint: Nonhealing hematoma ulcer left lower anteromedial leg. History of Wound: Surgery 12/08/17 - Surgical preparation left lower anteromedial leg with incision and drainage and excisional debridement traumatic hematoma (60 cm2). Operative culture - negative. Was treated perioperatively with Levaquin and has finished them. 04/05/18 wound culture had rare amount Staphylococcus epidermis and Corynebacterium urealyticum. She was started on Doxycycline but did no tolerated it. Stopped Epifix during the infection and using daily silver dressing. Since her wound bed continues to be dry will stop moistened Makenzie and start collogen hydrogel with adaptic wound veil and tubigrip for compression. Encourage nutritional supplementation with protein to help the healing process. Today she denies any fever. Her appetite is good. Progress of Wound: Improving. - Physical Exam Vital Signs Temp Pulse Resp BP 96.9 F L 70 16 116/68 07/06/18 13:34 07/06/18 13:34 07/06/18 13:34 07/06/18 13:34 General: Alert, Oriented x3, Cooperative HEENT: Atraumatic Oral: Moist Mucosa Lungs: Normal air movement Cardiovascular: Regular rate Extremities: No edema, Capillary Refill Less than 3 Seconds Skin: Ulcer/ Wound - Left anterior lower leg Wound Measurements and Assessment WC - Nurse 1 - General Ulcer Measurement Start: 06/29/18 13:36 Freq: Status: Active Protocol: Activity Type Activity Date Activity User E-Sign Co-Sign Detail Recorded Client Recorded Date Recorded By Document 07/06/18 13:34 [facility] [id number] 07/06/18 13:41 [facility] 07/06/18 13:34 Wound Center Nurse 1 [Ulcer Assessment] #1 L Med Lower Leg -Combined with other wound No -Current Size (cm) - Length 1 -Current Size (cm) - Width 0.3 -Current Size (cm) - Depth 0.1 -Total Square Cm 0.3 -Date of Last Picture (Recall this 07/06/18 field) -Photo Taken Yes -Epithelialization Small 1-33% -Tunneling No -Undermining/Tunneling No -Circular Undermining No -Exudate Amt Small -Exudate Type Serous -Wound Margin Distinct, Outline Attached -Granulation Amt Large (67-100%) -Granulation Quality Red -Slough/Fibrin Yes -Necrosis Amt Small (1-33%) -Necrotic Tissue Type Adherent Slough -Texture (Karen-wound Skin Appearance) Scarring -Moisture (Karen-wound Skin Appearance Dry/Scaly ) -Color (Karen-wound Skin Appearance) Erythema -Temperature (Karen-wound Skin No Abnormality Appearance) (Pt Warm) -Tenderness on Palpation (Karen-wound No Skin Appearance) -Ulcer Cleansing Rinsed/ Irrigated with Saline -Foul Odor after Cleansing No -Anesthetic Used 5% Lidocaine Gel [Edema Assessment] -Lower Limb Edema Present No -Left Calf (cm) 40.1 -Left Ankle (cm) 22.3 WC - Nurse 2 - General Ulcer CM Notes Start: 06/29/18 13:36 Freq: Status: Active Protocol: Activity Type Activity Date Activity User E-Sign Co-Sign Detail Recorded Client Recorded Date Recorded By Document 07/06/18 13:47 TERRY [id number] 07/06/18 13:48 TERRY 07/06/18 13:47 Wound Center Nurse 2 [Procedure/Treatment] #1 L Med Lower Leg -Time 13:47 -Correct Patient Yes -Correct Side, Site, Position Yes -Correct Procedure Yes -Procedure Performed Yes -Type of Procedure Debridement -Clinical Debridement Subcutaneous -Post Debridement Size (cm) - Length 1.0 -Post Debridement Size (cm) - Width 0.5 -Post Debridement Size (cm) - Depth 0.1 -Total Square Cm 0.50 -Wound/Ulcer Outcome Not Healed -Ulcer Cleansing Rinsed/ Irrigated with Saline -Foul Odor after Cleansing No -Bioengineered Tissue No -Bleeding Controlled with Pressure -Offloading No -Treatment Response Procedure Tolerated Well [See Physician Procedure note for Specifics] Pain Scale: 0-10 Numeric [Pain] -Is Patient Pain Free? Yes Musculoskeletal: No Tenderness to Palpation of Joints or Extremities Neurological: Neuro grossly intact Psych/Mental Status: Normal Affect, Appropriate Debridement Note Post-Debridement Measurements/Treatment WC - Nurse 2 - General Ulcer CM Notes Start: 06/29/18 13:36 Freq: Status: Active Protocol: Activity Type Activity Date Activity User E-Sign Co-Sign Detail Recorded Client Recorded Date Recorded By Document 06/29/18 14:07 [id number] 06/29/18 14:09 Document 07/06/18 13:47 [id number] 07/06/18 13:48 06/29/18 07/06/18 14:07 13:47 Wound Center Nurse 2 #1 L Med Lower Leg -Time 14:07 13:47 -Correct Patient Yes Yes -Correct Side, Site, Position Yes Yes -Correct Procedure Yes Yes -Procedure Performed Yes Yes -Type of Procedure Debridement Debridement -Clinical Debridement Subcutaneous Subcutaneous -Post Debridement Size (cm) - Length 1.4 1.0 -Post Debridement Size (cm) - Width 0.6 0.5 -Post Debridement Size (cm) - Depth 0.1 0.1 -Total Square Cm 0.84 0.50 -Wound/Ulcer Outcome Not Healed Not Healed -Ulcer Cleansing Rinsed/ Rinsed/ Irrigated with Irrigated with Saline Saline -Foul Odor after Cleansing No No -Bioengineered Tissue No No -Bleeding Controlled with Pressure Pressure -Offloading No No -Treatment Response Procedure Procedure Tolerated Well Tolerated Well Pain Scale: 0-10 Numeric Is Patient Pain Free? Yes Yes Wound debrided: Left anterior lower leg Laterality: Left Type of Debridement: Excisional debridement Anesthesia Used: 5% Lidocaine Gel Depth: Down to and including healthy tissue, in the subcutaneous layer Percentage of wound debrided: 100 Instrument Used: 3mm curette Tissue Removed: Subcutaneous tissue and slough Severity: Limited To Skin Breakdown Amount of bleeding with debridement: Mild Bleeding Controlled with: Pressure Patient tolerated procedure well Assessment/Plan Active Problems 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) Chronic anticoagulation (Chronic) Assessment: 1. Nonhealing hematoma ulcer left lower anteromedial leg. 2. long-term used of 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 therapy for atrial fibrillation. 3. s/p surgical preparation left lower anteromedial leg with incision and drainage and excisional debridement traumatic hematoma (60 cm2). Plan: After subcutaneous debridement performed today and patient tolerated procedure well. Cultures on 04/06/18 grew Staphylococcus epidermis and Corynebacterium urealyticum. Started Doxycylcine twice daily, but she did not tolerate the antibiotics well. Since there were a small amount of organisms and they were resistant to other oral antibiotics, will treat with daily silver dressing changes. Patient instructed to wash area daily with soap and water. Will continue collagen hydrogel and adaptic wound veil to help keep the area moist. Use a double layer Tubigrip for compression. The wound is improving. Keep left leg elevated when sitting. The operative culture was negative. Encourage nutritional supplementation with protein to help the healing process. Followup 1 week. Code Visit 111xxx-113xx: [id number] Humera subq tissue 20 sq cm/<
[2018-07-13 13:40] VITALS: BP 131/71; PULSE 86; RESP 18; TEMP 36.4
--- NOTE | 2018-07-13 14:06 | PN.PCM_ITS ---
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 Current Visit: Yes Code(s): L97.922 - Non-pressure chronic ulcer of unspecified part of left lower leg with fat layer exposed (2) Chronic anticoagulation Status: Chronic Current Visit: Yes Code(s): Z79.01 - alf (current) use of 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s Type of Wound Date of Service: 07/13/18 Chief Complaint: Nonhealing hematoma ulcer left lower anteromedial leg. History of Wound: Surgery 12/08/17 - Surgical preparation left lower anteromedial leg with incision and drainage and excisional debridement traumatic hematoma (60 cm2). Operative culture - negative. Was treated perioperatively with Levaquin and has finished them. 04/05/18 wound culture had rare amount Staphylococcus epidermis and Corynebacterium urealyticum. She was started on Doxycycline but did no tolerated it. Stopped Epifix during the infection and using daily silver dressing. Since her wound bed continues to be dry will continue collogen hydrogel with adaptic wound veil and tubigrip for compression. Encourage nutritional supplementation with protein to help the healing process. Today she denies any fever. Her appetite is good. Progress of Wound: Improving. - Physical Exam Vital Signs Temp Pulse Resp BP 97.6 F L 86 18 131/71 H 07/13/18 13:40 07/13/18 13:40 07/13/18 13:40 07/13/18 13:40 General: Alert, Oriented x3, Cooperative HEENT: Atraumatic Oral: Moist Mucosa Lungs: Normal air movement Cardiovascular: Regular rate Extremities: No edema, Capillary Refill Less than 3 Seconds, No Calf Tenderness Skin: Ulcer/ Wound - Left anterior lower leg ulcer Wound Measurements and Assessment WC - Nurse 1 - General Ulcer Measurement Start: 06/29/18 13:36 Freq: Status: Active Protocol: Activity Type Activity Date Activity User E-Sign Co-Sign Detail Recorded Client Recorded Date Recorded By Document 07/13/18 13:40 DL [id number] 07/13/18 13:46 DL 07/13/18 13:40 Wound Center Nurse 1 [Ulcer Assessment] #1 L Med Lower Leg -Current Size (cm) - Length 0.1 -Current Size (cm) - Width 0.1 -Current Size (cm) - Depth 0.1 -Total Square Cm 0.01 -Photo Taken No -Exudate Amt None Present -Wound Margin Thickened -Granulation Amt Small (1-33%) -Granulation Quality [place] -Necrosis Amt None Present (0 %) -Structure Exposed N/A -Texture (Karen-wound Skin Appearance) Scarring -Moisture (Karen-wound Skin Appearance No Abnormality ) -Color (Karen-wound Skin Appearance) Rubor -Temperature (Karen-wound Skin No Abnormality Appearance) (Pt Warm) -Tenderness on Palpation (Karen-wound No Skin Appearance) -Ulcer Cleansing Rinsed/ Irrigated with Saline -Foul Odor after Cleansing No -Anesthetic Used 4% Lidocaine Solution [Edema Assessment] -Left Calf (cm) 37.8 -Left Ankle (cm) 20.5 - Nurse 2 - General Ulcer CM Notes Start: 06/29/18 13:36 Freq: Status: Active Protocol: Activity Type Activity Date Activity User E-Sign Co-Sign Detail Recorded Client Recorded Date Recorded By Document 07/13/18 14:00 DL [id number] 07/13/18 14:01 DL 07/13/18 14:00 Wound Center Nurse 2 [Procedure/Treatment] #1 L Med Lower Leg -Time 14:00 -Correct Patient Yes -Correct Side, Site, Position Yes -Correct Procedure Yes -Procedure Performed Yes -Type of Procedure Debridement -Clinical Debridement Subcutaneous -Post Debridement Size (cm) - Length 0.5 -Post Debridement Size (cm) - Width 0.3 -Post Debridement Size (cm) - Depth 0.1 -Total Square Cm 0.15 -Wound/Ulcer Outcome Not Healed -Ulcer Cleansing Rinsed/ Irrigated with Saline -Foul Odor after Cleansing No -Bioengineered Tissue No -Bleeding Controlled with Pressure -Offloading No -Treatment Response Procedure Tolerated Well [See Physician Procedure note for Specifics] Pain Scale: 0-10 Numeric [Pain] -Is Patient Pain Free? Yes Musculoskeletal: No Tenderness to Palpation of Joints or Extremities Neurological: Neuro grossly intact Psych/Mental Status: Normal Affect, Appropriate Debridement Note Post-Debridement Measurements/Treatment - Nurse 2 - General Ulcer CM Notes Start: 06/29/18 13:36 Freq: Status: Active Protocol: Activity Type Activity Date Activity User E-Sign Co-Sign Detail Recorded Client Recorded Date Recorded By Document 06/29/18 14:07 [email or web address] [id number] 06/29/18 14:09 JF Document 07/06/18 13:47 [id number] 07/06/18 13:48 Document 07/13/18 14:00 DL [id number] 07/13/18 14:01 DL 06/29/18 07/06/18 07/13/18 14:07 13:47 14:00 Wound Center Nurse 2 #1 L Med Lower Leg -Time 14:07 13:47 14:00 -Correct Patient Yes Yes Yes -Correct Side, Site, Position Yes Yes Yes -Correct Procedure Yes Yes Yes -Procedure Performed Yes Yes Yes -Type of Procedure Debridement Debridement Debridement -Clinical Debridement Subcutaneous Subcutaneous Subcutaneous -Post Debridement Size (cm) - Length 1.4 1.0 0.5 -Post Debridement Size (cm) - Width 0.6 0.5 0.3 -Post Debridement Size (cm) - Depth 0.1 0.1 0.1 -Total Square Cm 0.84 0.50 0.15 -Wound/Ulcer Outcome Not Healed Not Healed Not Healed -Ulcer Cleansing Rinsed/ Rinsed/ Rinsed/ Irrigated with Irrigated with Irrigated with Saline Saline Saline -Foul Odor after Cleansing No No No -Bioengineered Tissue No No No -Bleeding Controlled with Pressure Pressure Pressure -Offloading No No No -Treatment Response Procedure Procedure Procedure Tolerated Well Tolerated Well Tolerated Well Pain Scale: 0-10 Numeric Is Patient Pain Free? Yes Yes Yes Wound debrided: Left anterior lower leg Laterality: Left Type of Debridement: Excisional debridement Anesthesia Used: 4% Lidocaine Solution Depth: Down to and including healthy tissue, in the subcutaneous layer Percentage of wound debrided: 100 Instrument Used: 3mm curette Tissue Removed: Subcutaneous tissue and slough Severity: Limited To Skin Breakdown Amount of bleeding with debridement: Mild Bleeding Controlled with: Pressure, Compression and gauze Patient tolerated procedure well Assessment/Plan Active Problems 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) Chronic anticoagulation (Chronic) Assessment: 1. Nonhealing hematoma ulcer left lower anteromedial leg. 2. 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 3. s/p surgical preparation left lower anteromedial leg with incision and drainage and excisional debridement traumatic hematoma (60 cm2). Plan: After subcutaneous debridement performed today and patient tolerated procedure well. Cultures on 04/06/18 grew Staphylococcus epidermis and Corynebacterium urealyticum. Started Doxycylcine twice daily, but she did not tolerate the antibiotics well. Since there were a small amount of organisms and they were resistant to other oral antibiotics, will treat with daily silver dressing changes. Patient instructed to wash area daily with soap and water. Will continue collagen hydrogel and adaptic wound veil to help keep the area moist. Use a double layer Tubigrip for compression. The wound is improving and is no longer dry. Keep left leg elevated when sitting. The operative culture was negative. Encourage nutritional supplementation with protein to help the healing process. Followup 1 week. Code Visit [id number]: [id number] Humera subq tissue 20 sq cm/<
[2018-07-20 13:36] VITALS: BP 123/70; PULSE 80; RESP 18; TEMP 36
--- NOTE | 2018-07-20 16:25 | PN.PCM_ITS ---
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 Current Visit: Yes Code(s): L97.922 - Non-pressure chronic ulcer of unspecified part of left lower leg with fat layer exposed (2) Chronic anticoagulation Status: Chronic Current Visit: Yes Code(s): Z79.01 - longterm (current) use of 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s Type of Wound Date of Service: 07/20/18 Chief Complaint: Nonhealing hematoma ulcer left lower anteromedial leg. History of Wound: Surgery 12/08/17 - Surgical preparation left lower anteromedial leg with incision and drainage and excisional debridement traumatic hematoma (60 cm2). Operative culture - negative. Was treated perioperatively with Levaquin and has finished them. 04/05/18 wound culture had rare amount Staphylococcus epidermis and Corynebacterium urealyticum. She was started on Doxycycline but did no tolerated it. Stopped Epifix during the infection and using daily silver dressing. Since her wound bed continues to be dry will continue collogen hydrogel with adaptic wound veil and tubigrip for compression. Encourage nutritional supplementation with protein to help the healing process. Today she denies any fever. Her appetite is good. Progress of Wound: Improving. - Physical Exam Vital Signs Temp Pulse Resp BP 96.8 F L 80 18 123/70 H 07/20/18 13:36 07/20/18 13:36 07/20/18 13:36 07/20/18 13:36 General: Alert, Oriented x3, Cooperative HEENT: Atraumatic, PERRLA Oral: Moist Mucosa Lungs: Normal air movement Cardiovascular: Regular rate Extremities: Capillary Refill Less than 3 Seconds, Edema - +1 pitting edema, Peripheral Pulses Normal Skin: Ulcer/ Wound - Left anterior lower leg ulcer is healed Wound Measurements and Assessment WC - Nurse 1 - General Ulcer Measurement Start: 06/29/18 13:36 Freq: Status: Active Protocol: Activity Type Activity Date Activity User E-Sign Co-Sign Detail Recorded Client Recorded Date Recorded By Document 07/20/18 13:36 DL [id number] 07/20/18 13:41 DL 07/20/18 13:36 Wound Center Nurse 1 [Ulcer Assessment] #1 L Med Lower Leg -Current Size (cm) - Length 0.1 -Current Size (cm) - Width 0.1 -Current Size (cm) - Depth 0.1 -Total Square Cm 0.01 -Photo Taken No -Exudate Amt None Present -Wound Margin Thickened -Granulation Amt Large (67-100%) -Granulation Quality Pale -Necrosis Amt None Present (0 %) -Structure Exposed N/A -Texture (Karen-wound Skin Appearance) Scarring -Moisture (Karen-wound Skin Appearance No Abnormality ) -Color (Karen-wound Skin Appearance) No Abnormality -Temperature (Karen-wound Skin No Abnormality Appearance) (Pt Warm) -Tenderness on Palpation (Karen-wound No Skin Appearance) -Ulcer Cleansing Rinsed/ Irrigated with Saline -Foul Odor after Cleansing No -Anesthetic Used 5% Lidocaine Gel [Edema Assessment] -Left Calf (cm) 38 -Left Ankle (cm) 21 - Nurse 2 - General Ulcer CM Notes Start: 06/29/18 13:36 Freq: Status: Active Protocol: Activity Type Activity Date Activity User E-Sign Co-Sign Detail Recorded Client Recorded Date Recorded By Document 07/20/18 14:03 [id number] 07/20/18 14:05 07/20/18 14:03 Wound Center Nurse 2 [Procedure/Treatment] #1 L Med Lower Leg -Correct Patient No -Correct Side, Site, Position No -Correct Procedure No -Procedure Performed No -Post Debridement Size (cm) - Length 0 -Post Debridement Size (cm) - Width 0 -Post Debridement Size (cm) - Depth 0 -Total Square Cm 0 -Wound/Ulcer Outcome Healed- Epithelialized [See Physician Procedure note for Specifics] Pain Scale: 0-10 Numeric [Pain] -Is Patient Pain Free? Yes Musculoskeletal: No Tenderness to Palpation of Joints or Extremities Neurological: Neuro grossly intact Psych/Mental Status: Normal Affect, Appropriate Debridement Note Post-Debridement Measurements/Treatment - Nurse 2 - General Ulcer CM Notes Start: 06/29/18 13:36 Freq: Status: Active Protocol: Activity Type Activity Date Activity User E-Sign Co-Sign Detail Recorded Client Recorded Date Recorded By Document 06/29/18 14:07 [id number] 06/29/18 14:09 Document 07/06/18 13:47 [id number] 07/06/18 13:48 JF Document 07/13/18 14:00 DL [id number] 07/13/18 14:01 DL Document 07/20/18 14:03 [id number] 07/20/18 14:05 JF 06/29/18 07/06/18 07/13/18 14:07 13:47 14:00 Wound Center Nurse 2 #1 L Med Lower Leg -Time 14:07 13:47 14:00 -Correct Patient Yes Yes Yes -Correct Side, Site, Position Yes Yes Yes -Correct Procedure Yes Yes Yes -Procedure Performed Yes Yes Yes -Type of Procedure Debridement Debridement Debridement -Clinical Debridement Subcutaneous Subcutaneous Subcutaneous -Post Debridement Size (cm) - Length 1.4 1.0 0.5 -Post Debridement Size (cm) - Width 0.6 0.5 0.3 -Post Debridement Size (cm) - Depth 0.1 0.1 0.1 -Total Square Cm 0.84 0.50 0.15 -Wound/Ulcer Outcome Not Healed Not Healed Not Healed -Ulcer Cleansing Rinsed/ Rinsed/ Rinsed/ Irrigated with Irrigated with Irrigated with Saline Saline Saline -Foul Odor after Cleansing No No No -Bioengineered Tissue No No No -Bleeding Controlled with Pressure Pressure Pressure -Offloading No No No -Treatment Response Procedure Procedure Procedure Tolerated Well Tolerated Well Tolerated Well Pain Scale: 0-10 Numeric Is Patient Pain Free? Yes Yes Yes 07/20/18 14:03 Wound Center Nurse 2 #1 L [facility] Lower Leg -Time -Correct Patient No -Correct Side, Site, Position No -Correct Procedure No -Procedure Performed No -Type of Procedure -Clinical Debridement -Post Debridement Size (cm) - Length 0 -Post Debridement Size (cm) - Width 0 -Post Debridement Size (cm) - Depth 0 -Total Square Cm 0 -Wound/Ulcer Outcome Healed- Epithelialized -Ulcer Cleansing -Foul Odor after Cleansing -Bioengineered Tissue -Bleeding Controlled with -Offloading -Treatment Response Pain Scale: 0-10 Numeric Is Patient Pain Free? Yes No debridement was completed today Assessment/Plan Active Problems 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) Chronic anticoagulation (Chronic) Assessment: 1. Nonhealing hematoma ulcer left lower anteromedial leg. 2. longterm used of 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 therapy for atrial fibrillation. 3. s/p surgical preparation left lower anteromedial leg with incision and drainage and excisional debridement traumatic hematoma (60 cm2). Plan: She is healed today. Instructed her to moisturize the area at least once daily and to massage the scarring to help soften the scarring. Instructed to wear her tubigrip compression to help prevent swelling and to continue to elevate lower extremities when sitting. If she develops any further issues she is to see her PCP or return to the wound center. Code Visit Office Visits / Consults: [id number] OV L3 Est
== END 2018-07-22 23:59 ==
LOC: WC 13:30
PROVIDERS: Family Provider Family Medicine Geriatric Medicine; PCP Family Medicine Geriatric Medicine; Visit Provider Surgery
DX: S80.12XA Contusion of left lower leg, initial encounter (principal); X58.XXXA Exposure to other specified factors, initial encounter; Z79.01 Long term (current) use of 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s; I48.91 Unspecified atrial fibrillation
CPT/HCPCS: 11042; 99213; G0463

== ENCOUNTER → 2018-10-05 12:16 | Outpatient (CLI) | payer MEDICARE, OTHER, SELFPAY ==
[2018-10-05 13:09] LABS: Absolute Lymphocyte Count 0.93 X10^3/ul (0.83-4.51); Absolute Neutrophil Count 4.5 X10^3/uL (2.0-7.7); Basophil# 0.01 X10^3/uL; Basophil% 0.2 % (0-1); Eosinophil# 0.12 X10^3/uL; Hematocrit 40.1 % (37-47); Hemoglobin 12.8 g/dl (12.0-15.0); Lymphocyte # 0.93 X10^3/ul (4.0); Lymphocyte % 15.8 % (19-41); Mean Corp Hgb Conc 31.9 g/gl (32-36); Mean Corpuscular Hgb 29.4 pg (27.0-32.0); Mean Platelet Vol. 11.5 fl (6.2-12.0); Monocyte# 0.35 X10^3/uL; Monocyte% 5.9 % (0-10); Neutrophil # 4.47 X10^3/uL (2.7-7.7); Neutrophil % 75.9 % (47-70); Platelet Count 213 K/mm3 (150-450); RBC Distribution Width SD 49.2 fl (35.1-43.9); Red Blood Count 4.36 M/mm3 (4.2-5.4); White Blood Count 5.9 K/mm3 (4.4-11.0)
[2018-10-05 13:13] LABS: POSITIVE COUNT NO; POSITIVE DIFFERENTIAL NO; POSITIVE MORPHOLOGY NO
[2018-10-05 13:26] LABS: Vitamin D,25 Hydroxy 31.8 ng/mL (29.95-100.01)
[2018-10-05 13:30] LABS: ALB/GLOB Ratio 0.8 RATIO (0.9-2.4); AST(SGOT) 24 U/L (15-37); Alanine Aminotransfer ALT/SGPT 31 U/L (13-56); Albumin, Serum 3.4 g/dL (3.2-5.0); Alkaline Phosphatase 103 U/L (45-117); Anion Gap 4 (5-15); BUN 23 mg/dL (7-18); BUN/Creat Ratio 26.4 RATIO (10-20); Calcium,Total 8.3 mg/dL (8.5-10.1); Chloride 104 mmol/L (98-107); Creatinine, Serum 0.87 mg/dL (0.55-1.02); EST Glomerular Filtration Rate 67 mL/min (>60); Est Glom Filt Rate - Afr Amer 81 mL/min (>60); Glucose 76 mg/dL (74-106); Protein, Total 7.4 g/dL (6.4-8.2); Sodium Level 139 mmol/L (136-145); Thyroid Stim Hormone (TSH) 2.02 uIU/mL (0.358-3.74)
== END ==
PROVIDERS: Family Provider Family Medicine Geriatric Medicine; PCP Family Medicine Geriatric Medicine; Visit Provider Family Medicine Geriatric Medicine
DX: E55.9 Vitamin D deficiency, unspecified (principal); I10 Essential (primary) hypertension
CPT/HCPCS: 36415; 80053; 82306; 84443; 85025

== ENCOUNTER 2018-11-08 15:43 | Emergency (ER) | payer MEDICARE, OTHER, SELFPAY ==
[2018-11-08] VITALS (9 sets, daily range): BP systolic 80–139; BP diastolic 50–75; PULSE 71–169; RESP 14–22; TEMP 36.9; O2SAT 96–98; BMI 31.9
--- NOTE | 2018-11-08 15:53 | EKG12_ITS ---
Test Reason : REPEAT Blood Pressure : / mmHG Vent. Rate : 089 BPM Atrial Rate : 078 BPM P-R Int : 000 ms QRS Dur : 092 ms QT Int : 390 ms P-R-T Axes : 000 001 010 degrees QTc Int : 474 ms Atrial Fibrillation Non specific T- wave abnormality Confirmed by MARGARET CAMACHO, CAMERON ([id number]), dictionary editor LAITH LE ([id number]) on 11/10/2018 12:17:43 PM Referred By: GAGE Confirmed By:CAMERON ROBLES MD
--- NOTE | 2018-11-08 15:53 | RAD_ITS ---
STUDY: X-RAY CHEST REASON FOR EXAM: Female, 78 years old. Chest pain TECHNIQUE: Single AP portable view of the chest. COMPARISON: 11/20/2016 FINDINGS: The lungs are clear and expanded. There is no demonstrated pleural abnormality. Normal size heart. Normal mediastinum and arnold. Normal visualized pulmonary arteries. Normal visualized aortic arch and descending thoracic aorta. Normal visualized thoracic spine. Normal visualized ribs, clavicles, and shoulders. There is no demonstrated abnormality of the visualized soft tissue structures of the upper abdomen. RAD/Chest 1 View (Portable) IMPRESSION: Normal x-ray examination of the chest. Electronically Signed: Satya Middleton MD at 16:28 EDT Tel , Service support ,
[2018-11-08] MEDS: Adenosine 6 MG/2 ML Syringe IV (15:55)
[2018-11-08] MEDS: Adenosine 6 MG/2 ML Syringe 12 MG IV ×2 (15:57→16:01)
--- NOTE | 2018-11-08 16:05 | ED.VISSUMM ---
- ER Visit Summary Date of Service: 11/08/18 Chief Complaint: Palpitations History of Present Illness: The patient is a 78 F who presents with palpitations. Started 10 hours ago. She felt a fluttering in her chest. She has some mild chest pain but denies shortness of breath with this. She has a history of atrial fibrillation. She is on metoprolol 12.5 mg twice daily. She is also on Coumadin. She took 2 separate 200 mg tablets of amiodarone at 530 this morning at 11:30 AM with no relief. Physical Examination: Vital signs reviewed. HEENT exam unremarkable. Heart is tachycardic and regular rhythm without murmurs. Lungs are clear to auscultation. Abdomen is soft and nontender. Extremities reveal no edema. Skin exam normal. Neurologic exam normal. Test Results: Initial EKG was SVT with a rate of 164. Nonspecific ST and T wave changes noted. Laboratory studies show a hemoglobin that is normal. Creatinine 1.21. INR 2.7, troponin 0 0.035 Emergency Department Course and Treatment: The patient was given adenosine, 6 mg and then 2 doses of 12 mg. It showed that the underlying rhythm was atrial fibrillation but did not break her SVT. I then gave 20 mg of Cardizem IV. She then converted to a normal sinus rhythm. Repeat EKG showed that this is a sinus rhythm. Patient feels much better. She does not want to stay in the hospital that she does not have to. She would like to go home. I observed her for over 90 minutes and she did not return to the abnormal rhythm. Patient will be discharged home. She has a follow-up with Dr. Leyva in 10 days. Treatment Plan: [] Disposition: Discharge Impression: Atrial fibrillation with RVR Chemical cardioversion This note was generated with [employer] dictation software. It may contain incorrect words, spelling, and punctuation that were not noted in review of the chart prior to signing ED Disposition - Plan for ED Patient: Disposition: Home or Assisted Living Instructions: ED Afib Referrals: Yaya Brandt Chi, MD [Primary Care Provider] -
[2018-11-08] MEDS: dilTIAZem 25 MG/5 ML Vial 20 MG IV BOLUS (16:11)
[2018-11-08 16:16] LABS: Absolute Lymphocyte Count 1.36 X10^3/ul (0.83-4.51); Absolute Neutrophil Count 9.6 X10^3/uL (2.0-7.7); Basophil# 0.02 X10^3/uL; Basophil% 0.2 % (0-1); Eosinophil# 0.02 X10^3/uL; Eosinophils% 0.2 % (0-5); Hematocrit 41.9 % (37-47); Hemoglobin 13.8 g/dl (12.0-15.0); Lymphocyte # 1.36 X10^3/ul (4.0); Mean Corp Hgb Conc 32.9 g/gl (32-36); Mean Corpuscular Hgb 29.9 pg (27.0-32.0); Mean Corpuscular Volume 90.7 fL (81-99); Mean Platelet Vol. 10.9 fl (6.2-12.0); Monocyte% 2.6 % (0-10); Neutrophil # 9.62 X10^3/uL (2.7-7.7); Neutrophil % 84.9 % (47-70); POSITIVE COUNT NO; POSITIVE DIFFERENTIAL NO; POSITIVE MORPHOLOGY NO; Platelet Count 224 K/mm3 (150-450); RBC Distribution Width CV 14.9 % (11.6-14.6); RBC Distribution Width SD 49.3 fl (35.1-43.9); Red Blood Count 4.62 M/mm3 (4.2-5.4); White Blood Count 11.3 K/mm3 (4.4-11.0)
--- NOTE | 2018-11-08 16:21 | EKG12_ITS ---
Test Reason : REPEAT Blood Pressure : / mmHG Vent. Rate : 164 BPM Atrial Rate : 170 BPM P-R Int : 000 ms QRS Dur : 098 ms QT Int : 286 ms P-R-T Axes : 000 013 -77 degrees QTc Int : 472 ms Atrial fibrillation with rapid ventricular response Nonspecific T wave abnormality Abnormal ECG Confirmed by MARGARET CAMACHO, CAMERON ([id number]), assistant production editor LAITH LE ([id number]) on 11/10/2018 12:18:05 PM Referred By: GAGE Confirmed By:CAMERON ROBLES MD
--- NOTE | 2018-11-08 16:22 | EKG12_ITS ---
Test Reason : PALPS Blood Pressure : / mmHG Vent. Rate : 164 BPM Atrial Rate : 156 BPM P-R Int : 000 ms QRS Dur : 098 ms QT Int : 296 ms P-R-T Axes : 000 022 -80 degrees QTc Int : 488 ms Supraventricular tachycardia Non- specific ST & wave abnormality Abnormal ECG Confirmed by MARGARET CAMACHO, CAMERON ([id number]), news editor LAITH LE ([id number]) on 11/10/2018 12:19:19 PM Referred By: GAGE Confirmed By:CAMERON ROBLES MD
[2018-11-08] MEDS: 0.9% Normal Saline 1,000 ML 999 ML IV (16:30)
[2018-11-08 16:35] LABS: Anion Gap 11 (5-15); BUN 25 mg/dL (7-18); BUN/Creat Ratio 20.7 RATIO (10-20); Calcium,Total 8.8 mg/dL (8.5-10.1); Chloride 105 mmol/L (98-107); Creatinine, Serum 1.21 mg/dL (0.55-1.02); EST Glomerular Filtration Rate 46 mL/min (>60); Est Glom Filt Rate - Afr Amer 56 mL/min (>60); Estimated Creatinine Clearance 34.16 ml/min; Glucose 144 mg/dL (74-106); Potassium 3.8 mmol/L (3.5-5.1); Sodium Level 139 mmol/L (136-145)
[2018-11-08 16:36] LABS: International Normalized Ratio 2.7; Prothrombin Time (Protime)PT. 28.9 SECONDS (11.7-14.9)
--- NOTE | 2018-11-08 17:57 | ED.DEP ---
ED Disposition - Plan for ED Patient: Disposition: Home or Assisted Living Instructions: ED Afib Referrals: Yaya Brandt Chi, MD [Primary Care Provider] -
== END 2018-11-08 18:36 | disposition home or self-care (01) ==
PROVIDERS: Emergency Provider Emergency Medicine; Family Provider Family Medicine Geriatric Medicine; PCP Family Medicine Geriatric Medicine
DX: I48.0 Paroxysmal atrial fibrillation (principal); I10 Essential (primary) hypertension; Z79.01 Long term (current) use of 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s; Z79.899 Other long term (current) drug therapy
CPT/HCPCS: 71045; 80048; 84484; 85025; 85610; 93005; 96374; 96375; 99284; J7030; A4216; J0153

== ENCOUNTER 2018-11-10 16:32 | Emergency (ER) | payer MEDICARE, OTHER, SELFPAY ==
[2018-11-08 15:45] VITALS: BMI 31.9
[2018-11-10 16:33] VITALS: BP 151/60; PULSE 122; RESP 20; TEMP 36.9; O2SAT 98; BMI 30.8
--- NOTE | 2018-11-10 16:45 | EKG12_ITS ---
Test Reason : CP Blood Pressure : / mmHG Vent. Rate : 144 BPM Atrial Rate : 234 BPM P-R Int : 000 ms QRS Dur : 088 ms QT Int : 278 ms P-R-T Axes : 000 -11 062 degrees QTc Int : 430 ms Atrial fibrillation with rapid ventricular response Nonspecific ST and T wave abnormality Abnormal ECG Confirmed by TRAMAINE CAMACHO, MICKEY ([id number]), editorial project manager LAITH LE ([id number]) on 11/15/2018 11:05:47 AM Referred By: COLETTE Confirmed By:GHULAM REDD MD
--- NOTE | 2018-11-10 16:54 | ED.VIS.GEN ---
History of Present Illness Chief Complaint: Chest Pain Detail of Chief Complaint: Chest pressure and palpitations Informant: Patient Onset: Today Context: Sudden Onset Timing: Continuous Quality: Midsternal/left chest pressure and palpitations Location: Chest Current Severity: Mild Maximum Severity: Severe Worsened by: Pulling weeds Relieved by: Nothing Associated Symptoms: Lightheadedness when palpitations got worse Narrative: The chest pressure got worse at approximately 1530. She states while pulling weeds and she stood up she had a hoff of palpitations and felt lightheaded. States occasionally she feels that she can get a complete breath. She denied nausea or diaphoresis. She denies referred pain. She was seen on the and diagnosed with atrial fibrillation. Initially she was given adenosine for narrow complex tachycardia. After was determined she had atrial fibrillation she was administered 20 mg of Cardizem. She has an appointment see Dr. Sergio Leyva on November 18. She is still complaining of chest pressure and occasionally states difficult to take a complete breath. She denies orthopnea. She does have pedal edema and is on hydrochlorthiazide. She denies PND. Prior similar symptoms: Yes Recent Illness/Hospitalization: Yes - Past Medical History (1) Benign hypertension Status: Chronic (2) Chronic anticoagulation Status: Chronic (3) History of cardiac radiofrequency ablation (RFA) Status: Chronic (4) Hyperlipidemia Status: Chronic (5) Paroxysmal atrial fibrillation Status: Chronic (6) History of CVA (cerebrovascular accident) Status: Chronic Past Medical History - Allergies and Home Meds Allergies/Adverse Reactions: Allergies No Known Allergies Allergy (Verified 11/08/18 15:44) Primary Care Physician: Yaya Brandt Chi, MD [Primary Care Provider] - Prior records reviewed: Yes - INR 2.8 on November 08 Surgical History: - - Foot surgery Lives: With Family Smoking Status: Former smoker Alcohol: None Drugs: None - Family History Maternal Family History: Reports: Cancer - Breast cancer Paternal Family History: Reports: No pertinent history Review of Systems General: Denies: Chills, Fever, Sweats Eyes: Denies: Visual changes - bilaterally, Blurred Vision - bilaterally - Follow-up., Diplopia ENT: Denies: Rhinorrhea, Sore throat Cardiovascular: Reports: Chest pain, Palpitations, Heart racing Respiratory: Reports: Dyspnea. Denies: Cough, Dyspnea on exertion, Orthopnea, Paroxysmal nocturnal dyspnea Gastrointestinal: Denies: Abdominal pain, Nausea, Vomiting, Diarrhea, Melena, Hematochezia Genitourinary: Denies: Dysuria, Hematuria, Frequency Musculoskeletal: Denies: Back pain, Extremity Pain Skin: Denies: Rash, Wounds Neurological: Denies: Headache, Weakness, Numbness Psych: Denies: Depression Hematologic: Denies: Easy bruising Allergy: Denies: Uticaria, Swelling of the mouth Physical Exam Vital Signs/Narrative: Vital Signs Temp Pulse Resp BP Pulse Ox 11/10/18 16:33 98.4 F 122 H 20 H 151/60 H 98 Inital Vital Signs reviewed: Yes General: Well nourished, Well developed, No Acute Distress Head: Normocephalic, Atraumatic Eyes: Perrl, EOMI. Negative for: Pale conjunctiva, Scleral icterus, - ENT: Moist mucous membranes, No rhinorrhea Neck: Supple, Nontender Cardiovascular: No murmurs, Irregular, Tachycardia Respiratory: No distress, CTA bilaterally, Chest nontender Abdomen: Soft, Nontender, Nondistended, Normal bowel sounds, No masses Back: Nontender, Normal Inspection Extremities: Nontender, Edema - 1+ pitting edema bilaterally Skin: Normal color, No rash, No Trauma. Negative for: Cyanosis, Diaphoresis, Jaundice Neurological: Alert, Oriented x3, Cranial nerves II-XII grossly intact, Normal Strength, Normal Sensation Psychological: Normal affect, Normal Mood Diagnostic/Tx/Re-eval Chest X-Ray - ED: 2 View, Read by ED Physician, Unchanged, Normal, Heart, Lungs, Mediastinum, Bony Structures, No Acute Disease, - - Time of chest x-ray interpretation 1728. Impressions Chest X-Ray 11/10/18 17:10 IMPRESSION: Normal x-ray examination of the chest. Electronically Signed: Satya Middleton MD at 17:35 EDT Tel , Service support , 11/10/18 17:10 Chest PA and Lateral [RAD] Stat Laboratory Results 11/10/18 11/10/18 16:53 16:53 WBC 6.4 RBC 4.22 Hgb 12.5 Hct 37.7 MCV 89.3 MCH 29.6 MCHC 33.2 RDW 14.9 H RDW Differential 48.2 H Plt Count 193 MPV 11.5 Immature Gran % (Auto) 0.200 Neut % (Auto) 67.0 Lymph % (Auto) 22.8 Foster % (Auto) 6.9 Eos % (Auto) 2.8 Baso % (Auto) 0.3 Absolute Neuts (auto) 4.3 Absolute Lymphs (auto) 1.46 Total Counted Not Reportable Sodium 138 Potassium 3.8 Chloride 108 H Carbon Dioxide 25.0 Anion Gap 5 BUN 27 H Creatinine 0.96 Estim Creat Clear Calc 46.67 Est GFR (MDRD) Af Amer 72 Est GFR (MDRD) Non-Af 60 BUN/Creatinine Ratio 28.0 H Glucose 96 Calcium 8.6 Troponin I 0.031 - EKG Initial EKG Interpretation: Atrial Fibrillation - Ventricular rate 144. QRS duration 80 ms. QT interval 278 ms. There are nonspecific ST-T wave changes most likely rate dependent. - Medical Decision Making Elderly woman with medical problems who presents with chest discomfort and rapid heartbeat. The chest discomfort may be secondary to the rapid heartbeat. Since onset was 11 AM we will obtain troponin. EKG was obtained and reveals atrial fibrillation with a ventricular rate of 144. There are nonspecific ST-T wave changes most likely secondary to rate. She will receive 20 mg of Cardizem since she converted on November 08 with 20 mg of Cardizem. After results are available for review will contact Dr. Leyva or correction officer reformatory senior director of global commercial technology solutions to discuss case. Patient was reassessed at 1940. Monitor reveals a sinus rhythm rate of 99?100. Patient states the discomfort in her chest has resolved. Suspect the discomfort was related to rapid heartbeat/atrial fib with RVR plan is prescription for p.o. Cardizem and keep appoint with Dr. Leyva scheduled for next November 18. Will discuss with Dr. Castrejon who is on-call ED Disposition - Plan for ED Patient: Disposition: Home or Assisted Living Diagnosis: Paroxysmal atrial fibrillation with rapid ventricular response, Chest pain Instructions: Atrial Fibrillation Prescriptions: Diltiazem CD [Cardizem CD] 180 mg PO DAILY #30 cap Transmission Status: Pending to [id number] Referrals: Yaya Brandt Chi, MD [Primary Care Provider] - Sergio Leyva MD [STAFF PHYSICIAN] - Keep Rupinder appointment ( )
[2018-11-10] MEDS: dilTIAZem 25 MG/5 ML Vial 20 MG IV BOLUS (17:00)
--- NOTE | 2018-11-10 17:10 | RAD_ITS ---
STUDY: X-RAY CHEST REASON FOR EXAM: Female, 78 years old. Chest pain, shortness of breath TECHNIQUE: PA and lateral views of the chest. COMPARISON: 11/08/2018 FINDINGS: The lungs are clear and expanded. There is no demonstrated pleural abnormality. Normal size heart. Normal mediastinum and arnold. Normal visualized pulmonary arteries. Normal visualized aortic arch and descending thoracic aorta. Normal visualized thoracic spine. Normal visualized ribs, clavicles, and shoulders. There is no demonstrated abnormality of the visualized soft tissue structures of the upper abdomen. RAD/Chest PA and Lateral IMPRESSION: Normal x-ray examination of the chest. Electronically Signed: Satya Middleton MD at 17:35 EDT Tel , Service support ,
[2018-11-10 17:24] LABS: Absolute Lymphocyte Count 1.46 X10^3/ul (0.83-4.51); Absolute Neutrophil Count 4.3 X10^3/uL (2.0-7.7); Basophil# 0.02 X10^3/uL; Basophil% 0.3 % (0-1); Eosinophil# 0.18 X10^3/uL; Eosinophils% 2.8 % (0-5); Hematocrit 37.7 % (37-47); Hemoglobin 12.5 g/dl (12.0-15.0); Lymphocyte # 1.46 X10^3/ul (4.0); Lymphocyte % 22.8 % (19-41); Mean Corp Hgb Conc 33.2 g/gl (32-36); Mean Corpuscular Hgb 29.6 pg (27.0-32.0); Mean Corpuscular Volume 89.3 fL (81-99); Mean Platelet Vol. 11.5 fl (6.2-12.0); Monocyte# 0.44 X10^3/uL; Monocyte% 6.9 % (0-10); Neutrophil # 4.28 X10^3/uL (2.7-7.7); Platelet Count 193 K/mm3 (150-450); RBC Distribution Width CV 14.9 % (11.6-14.6); RBC Distribution Width SD 48.2 fl (35.1-43.9); Red Blood Count 4.22 M/mm3 (4.2-5.4); White Blood Count 6.4 K/mm3 (4.4-11.0)
[2018-11-10 17:48] LABS: POSITIVE COUNT NO; POSITIVE DIFFERENTIAL NO; POSITIVE MORPHOLOGY NO
[2018-11-10 17:59] LABS: BUN 27 mg/dL (7-18); Creatinine, Serum 0.96 mg/dL (0.55-1.02); Estimated Creatinine Clearance 46.67 ml/min; Glucose 96 mg/dL (74-106)
[2018-11-10 18:00] LABS: Anion Gap 5 (5-15); Calcium,Total 8.6 mg/dL (8.5-10.1); Chloride 108 mmol/L (98-107); EST Glomerular Filtration Rate 60 mL/min (>60); Est Glom Filt Rate - Afr Amer 72 mL/min (>60); Potassium 3.8 mmol/L (3.5-5.1); Sodium Level 138 mmol/L (136-145)
[2018-11-10 20:21] VITALS: PULSE 100; RESP 16; O2SAT 96
[2018-11-10 20:40] VITALS: BP 137/106; PULSE 102; RESP 18; O2SAT 98
== END 2018-11-10 20:41 | disposition home or self-care (01) ==
PROVIDERS: Emergency Provider Emergency Medicine; Family Provider Family Medicine Geriatric Medicine; PCP Family Medicine Geriatric Medicine
DX: I48.0 Paroxysmal atrial fibrillation (principal); R07.9 Chest pain, unspecified; I10 Essential (primary) hypertension; Z86.73 Personal history of transient ischemic attack (TIA), and cerebral infarction without residual deficits; Z87.891 Personal history of nicotine dependence; Z79.01 Long term (current) use of 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s
CPT/HCPCS: 71046; 80048; 84484; 85025; 93005; 96374; 99284; A4216

== ENCOUNTER 2018-11-23 08:58 | Day surgery (SDC) | payer MEDICARE, OTHER, SELFPAY ==
[2018-11-18 15:30] VITALS: BMI 29.9
[2018-11-22 10:04] VITALS: BMI 29.9
[2018-11-22 10:11] LABS: International Normalized Ratio 2.7; Prothrombin Time (Protime)PT. 29.1 SECONDS (11.7-14.9)
[2018-11-22 10:29] LABS: Anion Gap 8 (5-15); BUN 26 mg/dL (7-18); BUN/Creat Ratio 27.3 RATIO (10-20); Calcium,Total 8.7 mg/dL (8.5-10.1); Chloride 106 mmol/L (98-107); Creatinine, Serum 0.95 mg/dL (0.55-1.02); EST Glomerular Filtration Rate 61 mL/min (>60); Est Glom Filt Rate - Afr Amer 73 mL/min (>60); Estimated Creatinine Clearance 47.16 ml/min; Glucose 59 mg/dL (74-106); Potassium 3.8 mmol/L (3.5-5.1); Sodium Level 143 mmol/L (136-145)
--- NOTE | 2018-11-23 10:37 | PCM.HP.BLA ---
History and Physical Date of Admission: 11/23/18 History of Present Illness Details: This is a 78-year-old white female who presents for outpatient cardioversion. She has previously been followed by [facility] cardiology-Karen. Her follow-up has been for evaluation of atrial fibrillation for which she has been treated medically, undergone previous DC cardioversion, and on 01-15-17 underwent EPS/RFA. She states based upon that she continues to follow with an occasional babysitter through the [facility] system: Dr. Christina Salguero. She states she has a follow-up appointment with her in November of this year. Pt denies chest, arm, jaw, or neck discomfort. Pt denies symptoms of CHF, near syncopal or syncopal episodes. Pt denies edema or claudication issues. Pt. denies orthopnea, PND, fever, chills, blood in urine, blood in stool, myalgia, or unexplainable fatigue. She acknowledges palpitations, lightheadedness, and dizziness that tends to resolve when not in atrial fibrillation/flutter. She presented to the emergency department recently on 11-10-18 and was diagnosed with recurrent atrial fibrillation. She was treated with additional medical management which had included IV diltiazem. She was reported as having return to sinus rhythm. She was released home on oral diltiazem therapy with request for continued local outpatient cardiovascular follow-up. Intake Vital Signs: See EMR Intake Visit Reasons: [facility] Eap Counselor Required: No Accompanied by: Self Allergies No Known Allergies Allergy (Verified 11/18/18 15:30) Medications Losartan Potassium [Cozaar] 50 mg PO BID 06/29/14 [History Confirmed 11/18/18] Ascorbic Acid [Vitamin C] 1,000 mg PO DAILY 10/28/16 [History Confirmed 11/18/18] Vitamin A 10,000 unit PO DAILY 10/28/16 [History Confirmed 11/18/18] Hydrochlorothiazide 12.5 mg PO DAILY 12/07/17 [History Confirmed 11/18/18] Warfarin [Coumadin (PBKC)] 4 mg PO DAILY 11/08/18 [History Confirmed 11/18/18] cholecalciferol (vitamin D3) 2,000 unit capsule 2,000 unit PO DAILY 11/11/18 [History Confirmed 11/18/18] magnesium 200 mg tablet 400 mg PO DAILY tab 11/11/18 [History Confirmed 11/18/18] diltiazem CD 180 mg capsule,extended release 24 hr 180 mg PO DAILY #30 cap 11/18/18 [Rx Confirmed 11/18/18] lactobacillus combination no.8 3 billion cell capsule 3,000 mmu cells PO DAILY 11/18/18 [History Confirmed 11/18/18] metoprolol tartrate 25 mg tablet 25 mg PO BID #60 tab 11/18/18 [Rx Confirmed 11/18/18] PFSH Medical History Non-rheumatic mitral regurgitation (Chronic) Essential hypertension (Chronic) 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) Open wound of left lower extremity with complication (Chronic) Chronic anticoagulation (Chronic) Paroxysmal atrial fibrillation (Chronic) Hyperlipidemia (Chronic) History of CVA (cerebrovascular accident) (Chronic ~2012) Cellulitis of left leg (Resolved) Hematoma of left lower extremity (Resolved) History of cardioversion (Resolved) History of left heart catheterization (LHC) (Resolved ~1989) Surgical History History of cardiac radiofrequency ablation (RFA) (Chronic ~01/15/17) Family History Father CAD (coronary artery disease) Social History (Updated 11/18/18 @ 17:01 by Sergio Leyva MD) Smoking Status: Former smoker alcohol intake: never substance use type: does not use caffeine: No ROS Const Const: Positive for fatigue; negative for weakness, frequent falls, excessive sweating, weight gain or weight loss Eyes Eyes: Negative for transient loss of vision, blurry vision or change in vision ENT ENT: Positive for dizziness (increased pulse); negative for balance problems Cardio Chest Pain: No Palpitations: Yes Edema: Negative Muscle aches with walking: None Resp Respiratory: Negative for SOB with activity or SOB at rest GI GI: Negative vomiting or vomiting blood/hematemesis : Negative for hematuria Musc Musc: Negative for muscle aches/ myalgia, muscle weakness, joint pain or balance problems Skin Skin: Negative non-healing lesions or rash Neuro Neuro: Positive for dizziness, lightheadedness; negative for orthostatic symptoms, frequent falls, weakness or blurry vision Kris Hematologic/Lymphatic: Negative for easy bleeding Endo Endo: Positive for fatigue; negative for excessive sweating Psych Psych: Negative for anxiety or depression Allergy Allergy/Immunology: Negative for hives, Negative for rash Cardiology Exam Const Appearance: cooperative, healthy appearing, comfortable, no acute distress, well developed and well groomed Nutritional Appearance: overweight Orientation: alert, awake and oriented x3 Head Head: normal to inspection, normocephalic and atraumatic Ears: hearing grossly normal bilaterally Nose: external nose normal Face and Sinus: face symmetric Mouth: oral mucosae normal Eyes Eyelids: eyelids normal Conjunctivae: conjunctivae normal Pupils: PERRL EOM: EOM intact bilaterally Neck Neck: normal visual inspection and full ROM Carotids: normal carotid upstroke Chest Chest inspection: normal inspection of the chest, symmetric chest movement and normal respiratory effort Auscultation: Bilateral: Clear to Auscultation Cardio Palpation: normal PMI Rate: regular rate Rhythm: irregular rhythm Heart sounds: S1 normal and S2 normal GI GI: normal to inspection, soft and bowel sounds present Neuro General: alert, awake, oriented x3 and moves all extremities Skin Skin: no rashes or lesions noted Extremities Pulses: Normal: Right Radial Pulse, Left Radial Pulse Lower Extremity Edema: None: Bilateral Psych Psychological: normal affect Assessment & Plan 1. Atrial fibrillation and flutter I48.91; I48.92 Plan At the present time she has had a long-standing history of atrial fibrillation which is required medical management, DC cardioversion, and EPS/RFA. At the moment appears she has had recurrent episodes of atrial fibrillation treated via the [facility] emergency department. Today on presentation it appears she is in atrial flutter. Her INR was checked on arrival and remains therapeutic. Her ECG continues to show Atrial fibrillation/flutter. She will proceed with DCCV and continue to follow with her [facility] occasional babysitter. She may need antiarrhythmic therapy and/or consideration for repeat ablative therapy. 2. History of cardiac radiofrequency ablation (RFA) Z98.890 For atrial fibrillation 01/15/17 @ [facility] Plan Again she is undergone EPS/RFA as noted above. This was performed on 01-15-2017 at [facility]. She will continue to follow with her elective quality supervisor as noted above. 3. Non-rheumatic mitral regurgitation I34.0 Plan She has a history of mitral valve insufficiency. According to a transthoracic echocardiogram from the [facility] from her left ventricle was normal at the time with an LVEF of 55% with her left atrium being dilated in the right atrium being dilated and moderate MR. She will need continued follow-up as deemed appropriate over time. 4. Hyperlipidemia, unspecified hyperlipidemia type E78.5 Plan She reportedly has a history of hyperlipidemia. We have her lipid labs will be appreciated for continuity of care. Depending upon the findings she may need to be considered for lipid-lowering therapy adjustment. 5. Essential hypertension I10 Plan Her blood pressure appears to be well controlled today. She will continue medical management. Additional Comments Of note she also has a history of undergoing a pharmacologic stress nuclear imaging study on 11-13-16 through the [facility] system. Per the report her myocardial perfusion was considered negative for evidence of infarction or ischemia. Her gated LVEF at that time was 74%. This note was generated using a voice recognition system and there may be incorrect words, spelling or punctuation that were not noted when reviewing the office note prior to saving.
--- NOTE | 2018-11-23 11:39 | CARDIOVERS_ITS ---
Cardioversion Cardioversion: Procedure: Synchronized Biphasic DC Cardioversion Indications: Atrial fibrillation/flutter Consent: Per the Patient Anesthesia: per Dr. Floyd of pulmonology and critical care medicine with propofol 40 mg IV push total Procedure: Synchronized Biphasic DC Cardioversion: 50 J x1: Result: Sinus versus ectopic atrial rhythm Complications: no apparent complications This note was generated with [employer] dictation software. It may contain incorrect words, spelling, and punctuation that were not noted in checking the note before signing.
--- NOTE | 2018-11-23 12:45 | PCM.OP.PRO ---
Procedure Report Date of Procedure: 11/23/18 CONSCIOUS SEDATION REPORT DATE OF SERVICE: November 23, 2018 BRIEF HISTORY OF PRESENT ILLNESS: The patient is a 78-year-old female who presents to [facility] for an elective outpatient cardioversion due to underlying atrial flutter. The patient was previously being followed by Dr. Lubin, cardiology at [facility]. She does report having undergone a prior cardioversion several years ago through the [facility]. She is currently anticoagulated on Coumadin with an INR this morning noted to be 2.4. Her last surface echocardiogram revealed an ejection fraction of approximately 55%. The patient denies any previous anesthetic complications. She has no known history of COPD, asthma or obstructive sleep apnea. PHYSICAL EXAMINATION: VITAL SIGNS: Reviewed and were acceptable. GENERAL: The patient is a female, in no apparent distress, speaking in full sentences. HEENT: Normocephalic, atraumatic. Mucous membranes are moist and pink. Good mouth opening noted. Trachea is midline. Good neck mobility. CHEST: S1, S2 irregularly irregular. No murmurs, rubs or gallops were noted. LUNGS: Clear to auscultation bilaterally without appreciable wheezes, rales or rhonchi. ABDOMEN: Soft, nontender, nondistended. Positive bowel sounds. EXTREMITIES: There is no clubbing, cyanosis or edema. ASA Class: II DESCRIPTION OF PROCEDURE: After confirmation of informed consent, the patient's anesthesia plan was reviewed in detail. Propofol was chosen. Risks and benefits were reviewed and the patient agreed to proceed. At 1039, the patient was given 40 mg of propofol. The patient achieved an appropriate level of sedation and was given a 50 joule synchronized cardioversion by Dr. Leyva at the bedside. This was successful in achieving normal sinus rhythm. The patient was monitored until 1047, at which time she reached her baseline mental status and function. The patient tolerated the procedure well. COMPLICATIONS: None ESTIMATED BLOOD LOSS: None RECOMMENDATIONS: Okay to recover in usual fashion. Code Visit [id number]: Other Procedure See Report - [id number]
== END 2018-11-23 12:15 | disposition home or self-care (01) ==
LOC: CLSP 08:59
PROVIDERS: Family Provider Family Medicine Geriatric Medicine; PCP Family Medicine Geriatric Medicine; Referring Provider Internal Medicine Cardiovascular Disease; Visit Provider Internal Medicine Cardiovascular Disease
DX: I48.0 Paroxysmal atrial fibrillation (principal); I48.92 Unspecified atrial flutter; I34.0 Nonrheumatic mitral (valve) insufficiency; E78.5 Hyperlipidemia, unspecified; I10 Essential (primary) hypertension; Z98.890 Other specified postprocedural states; Z87.891 Personal history of nicotine dependence; Z79.01 Long term (current) use of 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s; Z79.899 Other long term (current) drug therapy
CPT/HCPCS: 36415; 36416; 80048; 85610; 92960; 93005; J7040

== ENCOUNTER 2018-12-02 07:51 | Observation (INO) | payer MEDICARE, OTHER, SELFPAY ==
[2018-11-22 10:04] VITALS: BMI 29.9
[2018-12-02] VITALS (14 sets, daily range): BP systolic 86–128; BP diastolic 58–78; PULSE 71–136; RESP 16–18; TEMP 35.7–37.2; O2SAT 93–98; BMI 29.5
--- NOTE | 2018-12-02 08:22 | EKG12_ITS ---
Test Reason : PALPS Blood Pressure : / mmHG Vent. Rate : 130 BPM Atrial Rate : 300 BPM P-R Int : 000 ms QRS Dur : 100 ms QT Int : 334 ms P-R-T Axes : 090 -01 -61 degrees QTc Int : 491 ms Atrial flutter with variable A-V block Nonspecific T wave abnormality Abnormal ECG Confirmed by COLBY CAMACHO, MILES ([id number]), video news editor LAITH LE ([id number]) on 12/03/2018 12:07:56 PM Referred By: CHRISTOPHER Confirmed By:MILES BOWMAN MD
--- NOTE | 2018-12-02 08:22 | RAD_ITS ---
STUDY: X-RAY CHEST REASON FOR EXAM: Female, 78 years old. Chest pain and palpitations. TECHNIQUE: Single AP portable view of the chest. COMPARISON: Comparison is made with prior study dated November 10, 2018. FINDINGS: EKG electrodes are seen. Minimal increased linear markings at the lung bases suggests some mild linear scarring. There is no demonstrated pleural abnormality. Normal size heart. Normal mediastinum and arnold. Normal visualized pulmonary arteries. There is atherosclerotic tortuosity of the aortic arch and descending thoracic aorta. There is demineralization of the osseous structures. Normal visualized ribs, clavicles, and shoulders. There is no demonstrated abnormality of the visualized soft tissue structures of the upper abdomen. RAD/Chest 1 View (Portable) IMPRESSION: Stable mild increased linear markings at the lung bases suggestive of linear scarring. Electronically Signed: Andriy Ruiz, at 8:53 EDT , Service support ,
--- NOTE | 2018-12-02 08:23 | ED.VIS.CHEST ---
History of Present Illness Chief Complaint: Palpitations Detail of Chief Complaint: fluttering Informant: Patient Onset: Hours - 24 Activity at onset: Rest Timing: Intermittent - worse, more persistent overnight Quality: Dull Location: Substernal Current Severity: Mild Maximum Severity: Mild Worsened By: Nothing Relieved By: Nothing Associated Symptoms: Lightheadedness - when standing for 1-2 min; no syncope, Palpitations. Negative for: Nausea, Vomiting, Diaphoresis, Dyspnea, Cough, Fever, Acid Reflux Narrative: Patient has a long-standing history of atrial fibrillation/flutter, she had an ablation 2 years ago in [place] and actually had an appointment there today. She had been on amiodarone prior to that and was running into liver and thyroid issues, hence the ablation and discontinuing the medication. She has been anticoagulated on Coumadin, also taking labetalol, metoprolol, and diltiazem for the past month or so, and had a cardioversion a week ago. Now she feels she is back in A. fib/flutter, except she is having some mild chest discomfort that comes with the palpitation and resolves with them as well, which is unusual for her. She states she has been having A. fib for 20 years. She has no other known heart problems. - Past Medical History (1) Essential hypertension Status: Chronic (2) Hyperlipidemia Status: Chronic (3) Non-rheumatic mitral regurgitation Status: Chronic (4) Paroxysmal atrial fibrillation Status: Chronic Past Medical History - Allergies and Home Meds Allergies/Adverse Reactions: Allergies No Known Allergies Allergy (Verified 12/02/18 07:53) Primary Care Physician: Yaya Brandt Chi, MD [Primary Care Provider] - Surgical History: - - Foot surgery. cardiac RFA. Lives: Alone Smoking Status: Former smoker Drugs: None - Family History Maternal Family History: Family History (Last Reviewed 11/18/18 @ 15:33 by Maria E Montoya) Father CAD (coronary artery disease) Family History: Reports: Cancer - Breast cancer Paternal Family History: Family History (Last Reviewed 11/18/18 @ 15:33 by Maria E Montoya) Father CAD (coronary artery disease) Family History: Reports: No pertinent history Review of Systems General: Reports: Malaise. Denies: Chills, Fever, Sweats Eyes: Denies: Visual changes - bilaterally, Diplopia ENT: Denies: Rhinorrhea, Sore throat Cardiovascular: Reports: Chest pain - without radiation, Palpitations, Heart racing Respiratory: Denies: Dyspnea, Cough, Dyspnea on exertion Gastrointestinal: Denies: Abdominal pain, Nausea, Vomiting, Diarrhea, Melena, Hematochezia Genitourinary: Denies: Dysuria, Hematuria, Frequency Musculoskeletal: Reports: Swelling - RLE chronic, unchanged. Denies: Back pain, Extremity Pain Skin: Denies: Rash, Wounds Neurological: Denies: Headache, Weakness, Numbness Physical Exam Vital Signs/Narrative: Vital Signs Temp Pulse Resp BP Pulse Ox 12/02/18 08:02 106 H 18 105/69 95 12/02/18 07:52 96.2 F L 136 H 18 95/69 96 Inital Vital Signs reviewed: Yes General: Well nourished, Well developed, No Acute Distress Head: Normocephalic, Atraumatic Eyes: Perrl, EOMI ENT: Moist mucous membranes, No rhinorrhea Neck: Supple, Nontender, No JVD Cardiovascular: Regular rhythm - occasionally irregular, No murmurs, Tachycardia Respiratory: No distress, CTA bilaterally, Chest nontender Abdomen: Soft, Nontender, Nondistended, Normal bowel sounds Back: Nontender, Normal Inspection Extremities: Nontender, Edema - trace nonpitting RLE. Negative for: Calf Tenderness Skin: Normal color, No rash, No Trauma, - - Right lower leg NT scarred healed ulceration Neurological: Alert, Oriented x3, Cranial nerves II-XII grossly intact, Normal Strength, Normal Sensation, Normal Gait Psychological: Normal affect, Normal Mood Diagnostic/Tx/Re-eval Impressions Chest X-Ray 12/02/18 08:22 IMPRESSION: Stable mild increased linear markings at the lung bases suggestive of linear scarring. Electronically Signed: Andriy Ruiz, at 8:53 EDT , Service support , 12/02/18 08:22 Chest 1 View (Portable) [RAD] Stat Laboratory Results 12/02/18 12/02/18 12/02/18 08:08 08:08 08:08 WBC 7.3 RBC 4.77 Hgb 13.9 Hct 43.2 MCV 90.6 MCH 29.1 MCHC 32.2 RDW 14.9 H RDW Differential 48.3 H Plt Count 244 MPV 11.2 Immature Gran % (Auto) 0.300 Neut % (Auto) 74.6 H Lymph % (Auto) 15.8 L [place] % (Auto) 6.6 Eos % (Auto) 2.3 Baso % (Auto) 0.4 Absolute Neuts (auto) 5.4 Absolute Lymphs (auto) 1.15 Total Counted Not Reportable PT 24.9 H INR 2.3 Sodium 140 Potassium 3.7 Chloride 106 Carbon Dioxide 27.0 Anion Gap 7 BUN 26 H Creatinine 1.22 H Estim Creat Clear Calc 36.72 Est GFR (MDRD) Af Amer 55 L Est GFR (MDRD) Non-Af 46 L BUN/Creatinine Ratio 21.3 H Glucose 99 Calcium 9.0 Troponin I < 0.015 - Rhythm Strip Rhythm Strip: A-fib Rate: 130 Ectopy: None - EKG Initial EKG Interpretation: No Acute Injury Pattern, Atrial Flutter, Non-Specific ST Changes Follow-up EKG Interpretation: No Acute Injury Pattern, Atrial Flutter - improved rate - Medical Decision Making Labs show negative troponin, x-ray unremarkable, she was treated with IV fluid bolus since her blood pressure was borderline in addition to the Cardizem 10 mg IV push, this did bring her heart rate down to the 70s, still in A. fib-a flutter, however her symptoms resolved. Her blood pressure did go down into the 80s, she did not have any symptoms with that, we are continuing to bolus her with fluid and it is slowly coming up. I discussed with Dr. Borja on-call for cardiology, who does not recommend emergent cardioversion in the emergency department, but given her chest discomfort does recommend admission. Prior to that, he recommends discussing with the EP learning support teacher at [facility], with whom she had an appt this AM, Dr. Christina Salguero. I discussed with her, she states that given the patient is in a. flutter now, which we confirmed on repeat EKG, this is likely a different pathway than she had the ablation for in the past, and she would be willing to perform an additional procedure/study, but does not require that the patient be admitted today. She will schedule it for the next 1 to 2 weeks. We will admit her locally. Her recommendations were to increase her Cardizem and metoprolol as needed to keep her rate controlled, maintain anticoagulation, avoid cardioversion, and discontinue losartan as needed to keep her blood pressure up. ED Disposition - Plan for ED Patient: Disposition: Acute Care [facility] Diagnosis: Chest pain, unspecified, Atrial flutter Referrals: Yaya Brandt Chi, MD [Primary Care Provider] -
[2018-12-02] MEDS: 0.9% Normal Saline 1,000 ML 1000 ML IV (08:29)
[2018-12-02] MEDS: dilTIAZem 25 MG/5 ML Vial 10 MG IV BOLUS (08:29)
[2018-12-02 08:37] LABS: Absolute Lymphocyte Count 1.15 X10^3/ul (0.83-4.51); Absolute Neutrophil Count 5.4 X10^3/uL (2.0-7.7); Basophil# 0.03 X10^3/uL; Basophil% 0.4 % (0-1); Eosinophil# 0.17 X10^3/uL; Eosinophils% 2.3 % (0-5); Hematocrit 43.2 % (37-47); Hemoglobin 13.9 g/dl (12.0-15.0); Lymphocyte # 1.15 X10^3/ul (4.0); Lymphocyte % 15.8 % (19-41); Mean Corp Hgb Conc 32.2 g/gl (32-36); Mean Corpuscular Hgb 29.1 pg (27.0-32.0); Mean Corpuscular Volume 90.6 fL (81-99); Mean Platelet Vol. 11.2 fl (6.2-12.0); Monocyte# 0.48 X10^3/uL; Monocyte% 6.6 % (0-10); Neutrophil # 5.42 X10^3/uL (2.7-7.7); Neutrophil % 74.6 % (47-70); Platelet Count 244 K/mm3 (150-450); RBC Distribution Width CV 14.9 % (11.6-14.6); RBC Distribution Width SD 48.3 fl (35.1-43.9); Red Blood Count 4.77 M/mm3 (4.2-5.4); White Blood Count 7.3 K/mm3 (4.4-11.0)
[2018-12-02 08:48] LABS: POSITIVE COUNT NO; POSITIVE DIFFERENTIAL NO; POSITIVE MORPHOLOGY NO
[2018-12-02 08:57] LABS: Anion Gap 7 (5-15); BUN 26 mg/dL (7-18); BUN/Creat Ratio 21.3 RATIO (10-20); Chloride 106 mmol/L (98-107); Creatinine, Serum 1.22 mg/dL (0.55-1.02); EST Glomerular Filtration Rate 46 mL/min (>60); Est Glom Filt Rate - Afr Amer 55 mL/min (>60); Estimated Creatinine Clearance 36.72 ml/min; Glucose 99 mg/dL (74-106); Potassium 3.7 mmol/L (3.5-5.1); Sodium Level 140 mmol/L (136-145)
--- NOTE | 2018-12-02 09:12 | EKG12_ITS ---
Test Reason : REPEAT Blood Pressure : / mmHG Vent. Rate : 084 BPM Atrial Rate : 286 BPM P-R Int : 000 ms QRS Dur : 098 ms QT Int : 400 ms P-R-T Axes : 094 -02 -16 degrees QTc Int : 472 ms Atrial flutter with variable A-V block Abnormal ECG Confirmed by COLBY CAMACHO, MILES ([id number]), art editor LAITH LE ([id number]) on 12/03/2018 12:08:23 PM Referred By: FEI Confirmed By:MILES BOWMAN MD
[2018-12-02 09:18] LABS: International Normalized Ratio 2.3; Prothrombin Time (Protime)PT. 24.9 SECONDS (11.7-14.9)
--- NOTE | 2018-12-02 11:16 | CASEMGMT ---
RN CM Assessment Introduced role of RN CM to patient and patient DTR Enedina at bedside.? Patient is alert, oriented and able?to participate in RN CM Assessment. ?Care providers, pharmacy, and demographics verified. Presentation: Palpitations and Mild Chest Discomfort. H/o ASfib/Flutter, Ablation x2yrs ago in [place], Cardioversion x1 week ago. Admit Dx: CP, A-flutter Re-Admit: No, ER 11/08/18 & 11/10/18 for Palpitations and CP Barriers/Issues: None PCP: Yaya Brandt Chi Specialists: Cardio- Dr Leyva, Ablation- Dr Christina Pace, Endo- Dr Anjelica Morales, Uro- At [facility] has an MRI done every year. Preferred Pharmacy: [facility] Insurance: [employer], [employer] Benefit:?Yes LNOK: Dtr- Enedina Green LW/HPOA: Yes Both, aware this CM did not see on file, HPOA- Dtr Enedina Green Living Arrangements:?Lives alone in a Condo, 1 step to enter. ADL?s: Independent with ambulation and ADLs Transportation: Drives, Dtr/family to transport upon DC DME: None HHC: Past- Visiting Nurses SNF: None Goal: Home, does not think will have any needs. Denies questions/concerns. Aware CM remains available for any emerging needs. DC PLAN: Home with no anticipated needs identified at this time. ISHMAEL Tyler
--- NOTE | 2018-12-02 13:50 | PCM.HP.STD ---
Problem List (1) Atrial flutter with rapid ventricular response Status: Acute (2) 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 Status: Chronic (3) 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) Status: Chronic (4) Essential hypertension Status: Chronic (5) History of cardiac radiofrequency ablation (RFA) Status: Chronic Comment: For atrial fibrillation 01/15/17 @ [facility] (6) Hyperlipidemia Status: Chronic Qualifiers: Hyperlipidemia type: unspecified Qualified Code(s): E78.5 - Hyperlipidemia, unspecified History of Present Illness Date of Admission: 12/02/18 Chief Complaint: palpitations The patient is a 78 year old F with past medical history of atrial flutter status post radiofrequency ablation, prior CVA, benign brain tumor s/p gamma knife, history of hypertension, who presented to the emergency room with complaints of palpitations that started yesterday. Yesterday they were off and on throughout the day. Overnight it became constant. She also complained of dizziness and lightheadedness, severe fatigue especially with exertion. She also felt some mild chest discomfort that she cannot specify where or how exactly it felt. Currently she has no symptoms including palpitations, lightheadedness, dizziness, chest pain. She came to the emergency room and found it was found to be in atrial flutter with rapid ventricular response with a rate of 136. She was given an IV dose of Cardizem, her metoprolol was increased. Initially her BP was low however at this point it is stabilized along with her pulse rate which is now under 100. This patient has undergone a cardioversion earlier this month on October 24, she also had ER visits on November 08 rapid heart rate. 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) Open wound of left lower extremity with complication (Chronic) History of cardiac radiofrequency ablation (RFA) (Chronic ~01/15/17) For atrial fibrillation 01/15/17 @ [facility] Chronic anticoagulation (Chronic) Paroxysmal atrial fibrillation (Chronic) Hyperlipidemia (Chronic) Medical History: Medical History (Last Updated 11/23/18 @ 15:33 by Maria E Montoya) halfway current use of 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 (Chronic) Z79.01 Non-rheumatic mitral regurgitation (Chronic) I34.0 Essential hypertension (Chronic) I10 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) L97.922 Open wound of left lower extremity with complication (Chronic) S81.802A Chronic anticoagulation (Chronic) Z79.01 Paroxysmal atrial fibrillation (Chronic) I48.0 Hyperlipidemia (Chronic) E78.5 History of CVA (cerebrovascular accident) Onset Date: ~2012 Z86.73 Cellulitis of left leg (Resolved) L03.116 Hematoma of left lower extremity (Resolved) S80.12XA History of cardioversion Onset Date: ~11/23/18 Z98.890 Multiple; 11/23/18 History of left heart catheterization (LHC) Onset Date: ~1989 Z98.890 Allergies No Known Allergies Allergy (Verified 12/02/18 07:53) Home Medications: Ambulatory Orders Medication Instructions Recorded Losartan Potassium [Cozaar] 50 mg PO BID 06/29/14 Ascorbic Acid [Vitamin C] 1,000 mg PO DAILY 10/28/16 Vitamin A 10,000 unit PO DAILY 10/28/16 Hydrochlorothiazide 12.5 mg PO DAILY 12/07/17 cholecalciferol (vitamin D3) 2,000 2,000 unit PO DAILY 11/11/18 unit capsule magnesium 200 mg tablet 400 mg PO DAILY tab 11/11/18 diltiazem CD 180 mg 180 mg PO DAILY #30 cap 11/18/18 capsule,extended release 24 hr lactobacillus combination no.8 3 3,000 mmu cells PO DAILY 11/18/18 billion cell capsule metoprolol tartrate 25 mg tablet 25 mg PO BID #60 tab 11/18/18 Warfarin Sodium 3.5 mg PO DAILY 12/02/18 Surgical History: Surgical History (Last Reviewed 11/18/18 @ 15:33 by Maria E Montoya) History of cardiac radiofrequency ablation (RFA) (Chronic) Onset Date: ~01/15/17 Z98.890 For atrial fibrillation 01/15/17 @ [facility] Surgical History: - - Foot surgery. cardiac RFA. Gamma knife Psychiatric History: No pertinent psych hx [employer] History: No pertinent [employer] history Lives: Alone Smoking Status: Former smoker Tobacco Use: Non-smoker Alcohol: None Drugs: None - *Family History Maternal Family History: Family History (Last Reviewed 11/18/18 @ 15:33 by Maria E Montoya) Father CAD (coronary artery disease) History Items: Cancer - Breast cancer, Heart Disease Paternal Family History: Family History (Last Reviewed 11/18/18 @ 15:33 by Maria E Montoya) Father CAD (coronary artery disease) History Items: No pertinent history Review of Systems Constitutional: Reports: Weakness, Fatigue. Denies: Chills, Fever, Weight Change HEENT: Denies: Head Aches, Sinus Congestion, Sinus Drainage Cardiovascular: Reports: Chest Pain, Light Headedness, Palpitations. Denies: Chest Pressure, Chest Tightness, Edema, Heaviness, Paroxysmal Noc. Dyspnea, Syncope Respiratory: Reports: Shortness of Breath. Denies: Cough, Shortness of breath at rest, Sputum production Gastrointestinal: Denies: Abdominal Pain, Nausea, Vomiting Genitourinary: Denies: Dysuria Musculoskeletal: Denies: Joint Pain, Joint Tenderness Skin: Denies: Rash, Wounds Neurological: Denies: Numbness, Tingling, Focal weakness Psychiatric: Denies: Anxiety, Depression, Homicidal Ideations, Suicidal Ideations Hematologic/ Lymphatic: Denies: Easy Bruising, Easy Bleeding VTE Information - Inpt Only VTE Present on Admission: No VTE Mechan Device Prophylaxis: None VTE Pharm Prophylaxis ordered?: Yes Patient Problems: Active and Suspected Problems (Last Updated 11/23/18 @ 15:33 by Maria E Montoya) Chest pain, unspecified (Acute) Atrial flutter (Acute) Atrial flutter with rapid ventricular response (Acute) - Physical Exam General: Alert, Oriented x3, Cooperative HEENT: Atraumatic, PERRLA, EOMI, Normocephalic Neck: Supple, No JVD, Negative Carotid Bruits Lungs: Clear to auscultation, Normal air movement Cardiovascular: No murmurs, Irregular Rate Abdomen: Bowel Sounds Present, Soft, Non Tender Extremities: No edema, Capillary Refill Less than 3 Seconds Skin: No rashes, No breakdown Musculoskeletal: No Tenderness to Palpation of Joints or Extremities Neurological: Cranial nerves II-XII grossly intact Psych/Mental Status: Normal Affect, Appropriate, Alert and oriented to time, place, person, mood and affect Vital Signs Temp Pulse Resp BP Pulse Ox 97.6 F L 96 16 114/70 95 12/02/18 11:30 12/02/18 11:30 12/02/18 11:30 12/02/18 11:30 12/02/18 11:30 Oxygen Flow Rate (L/min) 2 Oxygen Delivery Method Room Air Weight: 182 lb 15.739 oz Body Mass Index (BMI) 29.5 Laboratory Tests Past 24 Hrs 12/02/18 12/02/18 12/02/18 08:08 08:08 08:08 WBC 7.3 RBC 4.77 Hgb 13.9 Hct 43.2 MCV 90.6 MCH 29.1 MCHC 32.2 RDW 14.9 H RDW Differential 48.3 H Plt Count 244 MPV 11.2 Immature Gran % (Auto) 0.300 Neut % (Auto) 74.6 H Lymph % (Auto) 15.8 L [place] % (Auto) 6.6 Eos % (Auto) 2.3 Baso % (Auto) 0.4 Absolute Neuts (auto) 5.4 Absolute Lymphs (auto) 1.15 Total Counted Not Reportable PT 24.9 H INR 2.3 Sodium 140 Potassium 3.7 Chloride 106 Carbon Dioxide 27.0 Anion Gap 7 BUN 26 H Creatinine 1.22 H Estim Creat Clear Calc 36.72 Est GFR (MDRD) Af Amer 55 L Est GFR (MDRD) Non-Af 46 L BUN/Creatinine Ratio 21.3 H Glucose 99 Calcium 9.0 Troponin I < 0.015 12/02/18 12:50 WBC RBC Hgb Hct MCV MCH MCHC RDW RDW Differential Plt Count MPV Immature Gran % (Auto) Neut % (Auto) Lymph % (Auto) [place] % (Auto) Eos % (Auto) Baso % (Auto) Absolute Neuts (auto) Absolute Lymphs (auto) Total Counted PT INR Sodium Potassium Chloride Carbon Dioxide Anion Gap BUN Creatinine Estim Creat Clear Calc Est GFR (MDRD) Af Amer Est GFR (MDRD) Non-Af BUN/Creatinine Ratio Glucose Calcium Troponin I < 0.015 Assessment/Plan All Active Problems (Last Updated 11/23/18 @ 15:33 by Maria E Montoya) Chest pain, unspecified (Acute) Atrial flutter (Acute) Atrial flutter with rapid ventricular response (Acute) Cellulitis of left leg (Resolved) Hematoma of left lower extremity (Resolved) Institution of sotalol therapy (Resolved) 1. Aflutter with RVR - improving. Prior cardioversion and RFA. Rate improved with increased metoprolol and IV cardizem. Continue increased dose metoprolol. DC home tomorrow if BP is controlled and rate at goal. Continue Coumadin. o/p f/u with EP Dr. Salguero, plan for another RFA. 2. HTN - HCTZ stopped. 3. Hx CVA - not on asa/statin 4. Hx benign brain tumor - s/p gamma knife. DVT ppx: coumadin DC planning: likely home tomorrow. This patient was seen by John Wright PA-C under the supervision of Dr. Delacruz.
--- NOTE | 2018-12-02 16:39 | EKG12_ITS ---
Test Reason : CHEST PAIN ADMISSION Blood Pressure : / mmHG Vent. Rate : 100 BPM Atrial Rate : 270 BPM P-R Int : 000 ms QRS Dur : 096 ms QT Int : 366 ms P-R-T Axes : 000 -10 -18 degrees QTc Int : 472 ms Atrial flutter with variable A-V block Abnormal ECG Confirmed by MARGARET CAMACHO, CAMERON ([id number]), editor producer LAITH LE ([id number]) on 12/09/2018 10:31:42 AM Referred By: Confirmed By:CAMERON ROBLES MD
[2018-12-02] MEDS: Metoprolol Tartrate 50 MG Tablet PO (18:50)
[2018-12-02] MEDS: dilTIAZem CD 180 MG Capsule PO (21:40)
[2018-12-03] VITALS (12 sets, daily range): BP systolic 106–128; BP diastolic 56–82; PULSE 76–130; RESP 16; TEMP 36.4; O2SAT 95–98
[2018-12-03 06:14] LABS: Anion Gap 7 (5-15); BUN 25 mg/dL (7-18); BUN/Creat Ratio 25.1 RATIO (10-20); Calcium,Total 8.2 mg/dL (8.5-10.1); Chloride 111 mmol/L (98-107); EST Glomerular Filtration Rate 58 mL/min (>60); Est Glom Filt Rate - Afr Amer 70 mL/min (>60); Glucose 87 mg/dL (74-106); Sodium Level 144 mmol/L (136-145)
[2018-12-03] MEDS: Metoprolol Tartrate 50 MG Tablet PO (08:54)
[2018-12-03 09:53] LABS: Magnesium 2.1 mg/dL (1.6-2.6)
[2018-12-03] MEDS: Metoprolol Tartrate 25 MG Tablet PO (10:45)
[2018-12-03] MEDS: dilTIAZem CD 180 MG Capsule PO (10:45)
--- NOTE | 2018-12-03 14:21 | PCM.PROGNOTE ---
Patient Problems: Active and Suspected Problems (Last Updated 11/23/18 @ 15:33 by Maria E Montoya) Chest pain, unspecified (Acute) Atrial flutter (Acute) Atrial flutter with rapid ventricular response (Acute) Subjective: Pt asymptomatic this AM, no SOB, no palp, no CP, no LE edema. However rate still up to 130s this AM. BB increased and cardizem additional dose given. Trend pulse and BP. - Physical Exam General: Alert, Oriented x3, Cooperative HEENT: Atraumatic, PERRLA, EOMI, Normocephalic Neck: Supple, No JVD, Negative Carotid Bruits Lungs: Clear to auscultation, Normal air movement Cardiovascular: No murmurs, Irregular Rate, Tachycardic Abdomen: Bowel Sounds Present, Soft, Non Tender Extremities: No edema, Capillary Refill Less than 3 Seconds Skin: No rashes, No breakdown Musculoskeletal: No Tenderness to Palpation of Joints or Extremities Neurological: Cranial nerves II-XII grossly intact Psych/Mental Status: Normal Affect, Appropriate, Alert and oriented to time, place, person, mood and affect Vital Signs Temp Pulse Resp BP Pulse Ox 97.6 F L 98 16 128/79 H 98 12/03/18 09:00 12/03/18 13:36 12/03/18 09:00 12/03/18 09:00 12/03/18 09:00 Oxygen Flow Rate (L/min) 2 Oxygen Delivery Method Room Air Weight: 182 lb 15.739 oz Body Mass Index (BMI) 29.5 Intake and Output for Last 24 Hours 12/01/18 12/02/18 12/03/18 23:59 23:59 23:59 Intake Total 880 / 880 580 / 580 Balance 880 / 880 580 / 580 Laboratory Tests Past 24 Hrs 12/02/18 12/03/18 12/03/18 14:33 05:32 05:32 Sodium 144 Potassium 4.0 Chloride 111 H Carbon Dioxide 26.0 Anion Gap 7 BUN 25 H Creatinine 1.00 Estim Creat Clear Calc 44.80 Est GFR (MDRD) Af Amer 70 Est GFR (MDRD) Non-Af 58 L BUN/Creatinine Ratio 25.1 H Glucose 87 Calcium 8.2 L Magnesium 2.1 Troponin I < 0.015 Medical Necessity - Tobacco Use Smoking Status: Former smoker Tobacco Use: Non-smoker Assessment/Plan All Active Problems (Last Updated 11/23/18 @ 15:33 by Maria E Montoya) Chest pain, unspecified (Acute) Atrial flutter (Acute) Atrial flutter with rapid ventricular response (Acute) Cellulitis of left leg (Resolved) Hematoma of left lower extremity (Resolved) Institution of sotalol therapy (Resolved) 1. Aflutter with RVR - improving. Prior cardioversion and RFA. Rate improved with increased metoprolol and IV cardizem. Metoprolol to 75 BID, Cardizem CD 180 mg x1 given today. Trend BP/Pulse. Outpatient EP f/u at dc. Trops neg. Renal function improved. K+/Mag normal. 2. HTN - HCTZ/losartan stopped. 3. Hx CVA - not on asa/statin 4. Hx benign brain tumor - s/p gamma knife. DVT ppx: coumadin DC planning: likely home tomorrow. o/p EP f.u. This patient was seen by John Wright PA-C under the supervision of Dr. Delacruz.
--- NOTE | 2018-12-03 16:10 | PCM.DC.SUM ---
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 - Secondary Discharge Diagnosis Chronic Problems (Last Updated 11/23/18 @ 15:33 by Maria E Montoya) 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 (Chronic) 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) (Chronic) 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 Operations: None, - - Incision and drainage with debridement of traumatic hematoma left lower anteromedial leg Procedures: None Summary of Care Provided: Hospital course: The patient is a 78 year old F with past medical history of atrial flutter with prior RFA and cardioversions, last cardioversion was earlier this month, who follows with an oleomargarine maker at the [facility]. She presented to the emergency room with complaints of palpitations, severe fatigue, shortness of breath, dizziness and lightheadedness. In the ER she was found to have atrial flutter with rapid ventricular response with a heart rate into the 130s. She was given IV Lopressor and Cardizem boluses. Initially her blood pressure declined to 80 systolic, and she was unable to maintain good control of her heart rate. She was admitted to the PCU on telemetry. Her metoprolol was increased to 50 twice daily initially, and her HCTZ and losartan were discontinued for low blood pressure. She continued to have elevated pulse overnight into the 130s. The following morning her metoprolol was increased to 75 twice daily, and she was given an additional dose of Cardizem 180. After this her pulse and blood pressure were both well controlled into the 70s for pulse and BP 106/56. She already has plans to see an oleomargarine maker in [place] for an additional RFA as an outpatient. We advised her to try to push up her appointment and follow-up as soon as possible. She should also follow-up with your PCP in 1 to 2 weeks. She was discharged home in stable condition. This patient was seen by John Wright PA-C under the supervision of Doctor Jayme. [] Patient Problems: Active and Suspected Problems (Last Updated 11/23/18 @ 15:33 by Maria E Montoya) Chest pain, unspecified (Acute) Atrial flutter (Acute) Atrial flutter with rapid ventricular response (Acute) - Physical Exam General: Alert, Oriented x3, Cooperative HEENT: Atraumatic, PERRLA, EOMI, Normocephalic Neck: Supple, No JVD, Negative Carotid Bruits Lungs: Clear to auscultation, Normal air movement Cardiovascular: No murmurs, Irregular Rate Abdomen: Bowel Sounds Present, Soft, Non Tender Extremities: No edema, Capillary Refill Less than 3 Seconds Skin: No rashes, No breakdown Musculoskeletal: No Tenderness to Palpation of Joints or Extremities Neurological: Cranial nerves II-XII grossly intact Psych/Mental Status: Normal Affect, Appropriate, Alert and oriented to time, place, person, mood and affect Vital Signs Temp Pulse Resp BP Pulse Ox 97.6 F L 76 16 106/56 L 96 12/03/18 15:00 12/03/18 15:21 12/03/18 15:00 12/03/18 15:00 12/03/18 15:00 Oxygen Flow Rate (L/min) 2 Oxygen Delivery Method Room Air Weight: 182 lb 15.739 oz Body Mass Index (BMI) 29.5 Intake and Output for Last 24 Hours 12/01/18 12/02/18 12/03/18 23:59 23:59 23:59 Intake Total 880 / 880 580 / 580 Balance 880 / 880 580 / 580 Laboratory Tests Past 24 Hrs 12/03/18 12/03/18 05:32 05:32 Sodium 144 Potassium 4.0 Chloride 111 H Carbon Dioxide 26.0 Anion Gap 7 BUN 25 H Creatinine 1.00 Estim Creat Clear Calc 44.80 Est GFR (MDRD) Af Amer 70 Est GFR (MDRD) Non-Af 58 L BUN/Creatinine Ratio 25.1 H Glucose 87 Calcium 8.2 L Magnesium 2.1 Discharge Diet: Low fat/ Low Cholesterol, 2000 mg Sodium Diet Discharge Activity: Return to Normal Activity Home Medications: Medications to take at Discharge Losartan Potassium [Cozaar] 50 mg PO BID 06/29/14 Ascorbic Acid [Vitamin C] 1,000 mg PO DAILY 10/28/16 Vitamin A 10,000 unit PO DAILY 10/28/16 Hydrochlorothiazide 12.5 mg PO DAILY 12/07/17 cholecalciferol (vitamin D3) 2,000 unit capsule 2,000 unit PO DAILY 11/11/18 magnesium 200 mg tablet 400 mg PO DAILY tab 11/11/18 diltiazem CD 180 mg capsule,extended release 24 hr 180 mg PO DAILY #30 cap 11/18/18 lactobacillus combination no.8 3 billion cell capsule 3,000 mmu cells PO DAILY 11/18/18 metoprolol tartrate 25 mg tablet 25 mg PO BID #60 tab 11/18/18 Warfarin Sodium 3.5 mg PO DAILY 12/02/18 Primary Care Physician: Yaya Brandt Chi, MD [Primary Care Provider] - Please follow up with your Primary Care Physician in: 1-2 weeks Please Follow Up With: Tmd Teacher Assistant When: Call for appointment Disposition: Home Minutes spent on discharge:: 35 Patient Condition:: Stable Medical Necessity - Tobacco Use Smoking Status: Former smoker Tobacco Use: Non-smoker Meaningful Use Info Meaningful Use Diagnoses (Choose all that apply): None applicable
--- NOTE | 2018-12-03 16:13 | DCINST_ITS ---
- Discharge Diagnoses Current Active Problems: Current Active and Chronic Problems (Last Updated 11/23/18 @ 15:33 by Maria E Montoya) Chest pain, unspecified (Acute) Atrial flutter (Acute) Atrial flutter with rapid ventricular response (Acute) 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 (Chronic) 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) (Chronic) You will use the following diet at home:: No restrictions Your food should be the consistency of: Regular Your liquids should be the consistency of: Regular/Thin Discharge Activity: Return to Normal Activity Weight Bearing Status: Full weight bearing Allergies/Adverse Reactions: Allergies No Known Allergies Allergy (Verified 12/02/18 07:53) Medications to take at Discharge Ascorbic Acid [Vitamin C] 1,000 mg PO DAILY 10/28/16 cholecalciferol (vitamin D3) 2,000 unit capsule 2,000 unit PO DAILY 11/11/18 Warfarin Sodium 3.5 mg PO DAILY 12/02/18 Diltiazem HCl [Diltiazem 24Hr ER (Cd)] 180 mg PO BID #60 cap 12/03/18 Metoprolol Tartrate [Lopressor (beta nely)] 50 mg PO UD #60 tab 12/03/18 The following prescriptions were given: Diltiazem HCl [Diltiazem 24Hr ER (Cd)] 180 mg PO BID #60 cap Transmission Status: Pending to [id number] Metoprolol Tartrate [Lopressor (beta nely)] 50 mg PO UD #60 tab Transmission Status: Pending to [id number] Primary Care Physician: Yaya Brandt Chi, MD [Primary Care Provider] - Please follow up with your Primary Care Physician in: 1-2 weeks Test Results: Test results from this visit will be discussed in further detail at your follow- up appointment, if applicable. 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
== END 2018-12-03 16:14 | disposition home or self-care (01) ==
LOC: ED 09:59 → PCU 12:23
PROVIDERS: Physician Assistant; Admitting Provider Internal Medicine; Emergency Provider Emergency Medicine; Family Provider Family Medicine Geriatric Medicine; PCP Family Medicine Geriatric Medicine; Visit Provider Internal Medicine
DX: R07.9 Chest pain, unspecified (principal); I10 Essential (primary) hypertension; E78.5 Hyperlipidemia, unspecified; I48.0 Paroxysmal atrial fibrillation; Z87.891 Personal history of nicotine dependence; I48.92 Unspecified atrial flutter; Z79.899 Other long term (current) drug therapy; Z79.01 Long term (current) use of 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s; Z86.011 Personal history of benign neoplasm of the brain
CPT/HCPCS: 36415; 71045; 80048; 83735; 84484; 85025; 85610; 93005; 96361; 96374; 99218; 99285; J7030; A4216; G0378

== ENCOUNTER → 2018-12-14 | Outpatient (CLI) | payer MEDICARE, OTHER, SELFPAY ==
[2018-12-02 11:20] VITALS: BMI 29.5
== END | disposition home or self-care (01) ==
LOC: LABSPEC 16:06
PROVIDERS: Visit Provider Obstetrics & Gynecology
DX: N39.0 Urinary tract infection, site not specified (principal)
CPT/HCPCS: 87086; 87088

== ENCOUNTER 2018-12-22 09:52 | Outpatient (RCR) | payer MEDICARE, OTHER, SELFPAY ==
[2018-12-02 11:20] VITALS: BMI 29.5
[2018-12-07 10:02] LABS: International Normalized Ratio 2.9; Prothrombin Time (Protime)PT. 30.6 SECONDS (11.7-14.9)
[2018-12-13 10:29] LABS: International Normalized Ratio 2.8; Prothrombin Time (Protime)PT. 29.9 SECONDS (11.7-14.9)
[2018-12-22 10:51] LABS: Prothrombin Time (Protime)PT. 31.2 SECONDS (11.7-14.9)
== END 2018-12-22 16:20 | disposition home or self-care (01) ==
LOC: LAB 09:52
PROVIDERS: Nurse Practitioner Family; Family Provider Family Medicine Geriatric Medicine; PCP Family Medicine Geriatric Medicine; Referring Provider Internal Medicine Cardiovascular Disease; Visit Provider Internal Medicine Cardiovascular Disease
DX: I48.0 Paroxysmal atrial fibrillation (principal); Z79.01 Long term (current) use of 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s
CPT/HCPCS: 36415; 85610

== ENCOUNTER 2019-01-10 09:21 | Outpatient (RCR) | payer MEDICARE, OTHER, SELFPAY ==
[2018-12-02 11:20] VITALS: BMI 29.5
[2018-12-24 10:06] LABS: International Normalized Ratio 3.4; Prothrombin Time (Protime)PT. 34.5 SECONDS (11.7-14.9)
[2019-01-10 10:08] LABS: International Normalized Ratio 1.9; Prothrombin Time (Protime)PT. 21.9 SECONDS (11.7-14.9)
== END 2019-01-10 11:00 | disposition home or self-care (01) ==
LOC: LAB 09:21
PROVIDERS: Family Provider Family Medicine Geriatric Medicine; PCP Family Medicine Geriatric Medicine; Referring Provider Internal Medicine Cardiovascular Disease; Visit Provider Internal Medicine Cardiovascular Disease
DX: I48.0 Paroxysmal atrial fibrillation (principal); Z79.01 Long term (current) use of 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s
CPT/HCPCS: 36415; 85610

== ENCOUNTER → 2019-02-15 | Outpatient (CLI) | payer MEDICARE, OTHER, SELFPAY ==
[2018-12-02 11:20] VITALS: BMI 29.5
== END | disposition home or self-care (01) ==
LOC: LAB 12:25 → PSN 12:28
PROVIDERS: Family Provider Family Medicine Geriatric Medicine; PCP Family Medicine Geriatric Medicine; Referring Provider Family Medicine Geriatric Medicine; Visit Provider Family Medicine Geriatric Medicine
DX: J32.9 Chronic sinusitis, unspecified (principal)
CPT/HCPCS: 87633

== ENCOUNTER 2019-02-21 10:17 | Outpatient (RCR) | payer MEDICARE, OTHER, SELFPAY ==
[2018-12-02 11:20] VITALS: BMI 29.5
[2019-01-25 11:53] LABS: International Normalized Ratio 2.1; Prothrombin Time (Protime)PT. 23.7 SECONDS (11.7-14.9)
[2019-02-01 10:53] LABS: Prothrombin Time (Protime)PT. 22.2 SECONDS (11.7-14.9)
[2019-02-21 11:07] LABS: International Normalized Ratio 2.8
== END 2019-02-21 18:00 | disposition home or self-care (01) ==
LOC: LAB 10:17
PROVIDERS: Family Provider Family Medicine Geriatric Medicine; PCP Family Medicine Geriatric Medicine; Referring Provider Internal Medicine Cardiovascular Disease; Visit Provider Internal Medicine Cardiovascular Disease
DX: I48.0 Paroxysmal atrial fibrillation (principal); Z79.01 Long term (current) use of 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s
CPT/HCPCS: 36415; 85610

== ENCOUNTER 2019-03-21 17:20 | Observation (INO) | payer MEDICARE, OTHER, SELFPAY ==
[2019-02-22 09:05] VITALS: BMI 28.8
[2019-03-21] VITALS (11 sets, daily range): BP systolic 70–112; BP diastolic 41–69; PULSE 67–155; RESP 12–18; TEMP 36.4–36.5; O2SAT 92–100; BMI 28.9; BMI 29.3
[2019-03-21] MEDS: Propofol 200 MG/20 ML Vial 40 MG IV BOLUS (17:38)
[2019-03-21] MEDS: 0.9% Normal Saline 1,000 ML 999 ML IV ×2 (17:40→18:10)
--- NOTE | 2019-03-21 17:40 | EKG12_ITS ---
Test Reason : REPEAT Blood Pressure : / mmHG Vent. Rate : 067 BPM Atrial Rate : 067 BPM P-R Int : 182 ms QRS Dur : 090 ms QT Int : 458 ms P-R-T Axes : 084 024 036 degrees QTc Int : 483 ms Normal sinus rhythm Normal ECG Confirmed by DUSTY ABREU ([id number]), rewrite editor NIURKA FONTANEZ ([id number]) on 03/28/2019 9:04:43 AM Referred By: Abelardo Arthur Confirmed By:DUSTY ABREU
[2019-03-21 18:07] LABS: Anion Gap 9 (5-15); BUN 29 mg/dL (7-18); BUN/Creat Ratio 20.3 RATIO (10-20); Calcium,Total 9.3 mg/dL (8.5-10.1); Chloride 105 mmol/L (98-107); Creatinine, Serum 1.43 mg/dL (0.55-1.02); EST Glomerular Filtration Rate 38 mL/min (>60); Est Glom Filt Rate - Afr Amer 46 mL/min (>60); Estimated Creatinine Clearance 31.33 ml/min; Glucose 160 mg/dL (74-106); Potassium 4.2 mmol/L (3.5-5.1); Sodium Level 138 mmol/L (136-145)
--- NOTE | 2019-03-21 18:13 | EKG12_ITS ---
Test Reason : PALPS Blood Pressure : / mmHG Vent. Rate : 156 BPM Atrial Rate : 153 BPM P-R Int : 000 ms QRS Dur : 104 ms QT Int : 328 ms P-R-T Axes : 000 -08 215 degrees QTc Int : 528 ms Supraventricular tachycardia Marked ST abnormality, possible inferior subendocardial injury Marked ST abnormality, possible anterolateral subendocardial injury Abnormal ECG Confirmed by DUSTY ABREU ([id number]), editor news NIURKA FONTANEZ ([id number]) on 03/28/2019 9:05:12 AM Referred By: Abelardo Arthur Confirmed By:DUSTY ABREU
--- NOTE | 2019-03-21 18:15 | RAD_ITS ---
STUDY: X-RAY CHEST REASON FOR EXAM: Female, 78 years old. Chest pain TECHNIQUE: Frontal view of the chest COMPARISON: X-ray chest December 02, 2018 FINDINGS: The lungs are clear. There are no pleural effusions. There is no pneumothorax. The heart is mildly enlarged. The visualized osseous structures are within normal limits. RAD/Chest 1 View (Portable) IMPRESSION: No acute thoracic pathology. Mild cardiomegaly. Electronically Signed: Blake Pearson, at 18:47 EDT Tel , Service support ,
[2019-03-21 18:18] LABS: Absolute Lymphocyte Count 1.77 X10^3/uL (0.83-4.51); Absolute Neutrophil Count 9.5 X10^3/uL (2.0-7.7); Basophil# 0.03 X10^3/uL; Basophil% 0.3 % (0-1); Eosinophils% 0.8 % (0-5); Hemoglobin 14.4 g/dL (12.0-15.0); Lymphocyte # 1.77 X10^3/ul (4.0); Lymphocyte % 14.8 % (19-41); Mean Corp Hgb Conc 31.3 g/dL (32-36); Mean Corpuscular Volume 92.6 fL (81-99); Mean Platelet Vol. 11.5 fl (6.2-12.0); Monocyte# 0.56 X10^3/uL; Monocyte% 4.7 % (0-10); NRBC Flagged by Analyzer 0 % (0-5); Neutrophil # 9.45 X10^3/uL (2.7-7.7); Platelet Count 289 K/mm3 (150-450); RBC Distribution Width CV 15.3 % (11.6-14.6); Red Blood Count 4.97 M/mm3 (4.2-5.4)
[2019-03-21 18:25] LABS: International Normalized Ratio 2.1; Prothrombin Time (Protime)PT. 23.1 SECONDS (11.7-14.9)
--- NOTE | 2019-03-21 18:28 | ED.VISSUMM ---
- ER Visit Summary Date of Service: 03/21/19 Chief Complaint: [Palpitations] History of Present Illness: The patient is a 78 F [presents to the emergency department with palpitations that started around 5 AM this morning. Patient states that she took some extra amiodarone that she had from when she had taken it prior. Patient states that in the past this is helped resolve the issue. Patient does have history of A. fib and flutter and has had several ablations in the last of which was in December of this year. Patient feels lightheaded and nauseated currently. Patient states that she has been diaphoretic. Denies any chest pain. She denies recent travel or surgery. Patient is on Coumadin and her last INR was therapeutic about a month ago.] Physical Examination: [HEENT-PERRLA, EOMI. Cranial nerves II through XII grossly intact. TMs clear. Mucous membranes moist. No adenopathy. Patient diaphoretic. Patient hypotensive. Cardiovascular-regular tachycardic with heart rate in the 150s. No murmurs auscultated. Lungs-clear to auscultation, chest wall stable without crepitus or subcu emphysema Abdomen-normoactive bowel sounds, soft, nontender, no rebound or rigidity, no peritoneal signs. Extremities-intact ?4, normal range of motion, normal pulses, atraumatic] Test Results: EKG obtained arrival showed a atrial flutter with a ventricular rate of [address] changes. CBC with differential shows a white count 12.0, hemoglobin 14, hematocrit 46, platelets 289. Chemistries unremarkable. BUN was 29 and creatinine 1.43. Troponin is 0.020. Chest x-ray obtained showed some cardiomegaly otherwise nothing acute. INR pending. Emergency Department Course and Treatment: [Given that patient was unstable and decision was made to cardiovert the patient. Patient received 40 mg of propofol IV. Patient was cardioverted with 200 J synchronized. Patient returned to a normal sinus rhythm. Repeat EKG showed a sinus rhythm with a ventricular rate of 67 bpm with no acute ST segment changes. Patient did have some episodes of hypotension afterwards and was given a liter normal saline fluid bolus followed by second liter. This was discussed with manager mission on-call Dr. Manny Castrejon. Patient was discussed with hospitalist as well.] Treatment Plan: [Admit for further monitoring.] Disposition: [Admit] Impression: [Atrial flutter unstable-cardioverted in the emergency department] This note was generated with [employer] dictation software. It may contain incorrect words, spelling, and punctuation that were not noted in review of the chart prior to signing ED Disposition - Plan for ED Patient: Referrals: Yaya Brandt Chi, MD [Primary Care Provider] -
--- NOTE | 2019-03-21 18:32 | ED.RN ---
AFTER CARDIOVERSION PT CONTINUES TO BE HYPOTENSIVE AND DIAPHORETIC. TWO LITERS NORMAL SALINE GIVEN ON PRESSURE BAGS. WILL CONTINUE TO MONITOR.
[2019-03-21] MEDS: 0.9% Normal Saline 1,000 ML 150 ML IV (19:00)
--- NOTE | 2019-03-21 19:12 | HP.PCM_ITS ---
Problem List (1) Atrial flutter with rapid ventricular response Status: Acute History of Present Illness Date of Admission: 03/21/19 Chief Complaint: palpitations The patient is a 78 year old F who was in her normal state of health but this morning, at 5 AM, express palpitations. Patient was have palpitations are consistent with her atrial fibrillation. Patient takes sotalol but took a dose of amiodarone which she takes intermittently for palpitations which seems to control her heart rate. It did not this time, however. Patient still continue to have palpitations and was dizzy and lightheaded. She then decided to present to the emergency room and patient was noted to be hypotensive with a blood pressure of 80/41. The decision was the patient had unstable atrial flutter and patient was cardioverted with anesthesia with propofol. Subsequently, patient converted to normal sinus rhythm and blood pressure was initially low after the propofol but has improved to 97/57. Patient states that she has been feeling well otherwise no recent illnesses though she did say that she had a sinus infection about 3 weeks ago. 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) Open wound of left lower extremity with complication (Chronic) History of cardiac radiofrequency ablation (RFA) (Chronic ~01/15/17) For atrial fibrillation 01/15/17 @ [facility] Chronic anticoagulation (Chronic) Hyperlipidemia (Chronic) Medical History: Medical History (Last Reviewed 03/21/19 @ 19:14 by Abelardo Arthur DO) Paroxysmal atrial fibrillation (Chronic) I48.0 EPS/RFA on 01/15/2017 and 12/27/2018; DCCV on 11/23/2018; 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 use of 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 (Chronic) Z79.01 Non-rheumatic mitral regurgitation (Chronic) I34.0 Essential hypertension (Chronic) I10 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) L97.922 Open wound of left lower extremity with complication (Chronic) S81.802A Chronic anticoagulation (Chronic) Z79.01 Hyperlipidemia (Chronic) E78.5 History of CVA (cerebrovascular accident) Onset Date: ~2012 Z86.73 Cellulitis of left leg (Resolved) L03.116 Hematoma of left lower extremity (Resolved) S80.12XA History of cardioversion Onset Date: ~11/23/18 Z98.890 Multiple; 11/23/18 History of left heart catheterization (LHC) Onset Date: ~1989 Z98.890 Allergies No Known Allergies Allergy (Verified 02/22/19 09:05) Home Medications: Ambulatory Orders Medication Instructions Recorded Ascorbic Acid [Vitamin C] 1,000 mg PO DAILY 10/28/16 cholecalciferol (vitamin D3) 2,000 2,000 unit PO DAILY 11/11/18 unit capsule Warfarin Sodium 1 mg PO DAILY 12/02/18 sotalol 80 mg tablet 80 mg PO BID 02/22/19 L.acidoph,Paracasei, B.lactis 1 ea PO DAILY 03/21/19 [Probiotic] Magnesium Oxide [Mag-Ox 400] 400 mg PO DAILY 03/21/19 Vitamin A 10,000 unit PO QHS 03/21/19 Vitamin E 2,000 unit PO QODAY 03/21/19 Warfarin Sodium 2.5 mg PO DAILY 03/21/19 Surgical History: Surgical History (Last Reviewed 03/21/19 @ 19:14 by Abelardo Arthur DO) History of cardiac radiofrequency ablation (RFA) (Chronic) Onset Date: ~01/15/17 Z98.890 For atrial fibrillation 01/15/17 @ [facility] Surgical History: - - Foot surgery. cardiac RFA. Gamma knife Psychiatric History: No pertinent psych hx BEEF SPECIALIST History: No pertinent BEEF SPECIALIST history Smoking Status: Former smoker - *Family History Maternal Family History: Family History (Last Reviewed 03/21/19 @ 19:14 by Abelardo Arthur DO) Father CAD (coronary artery disease) History Items: Cancer - Breast cancer, Heart Disease Paternal Family History: Family History (Last Reviewed 03/21/19 @ 19:14 by Abelardo Arthur DO) Father CAD (coronary artery disease) History Items: No pertinent history Review of Systems Constitutional: Reports: Malaise, Weakness. Denies: Anorexia, Night Sweats Eyes: Denies: Blurred vision, Double vision HEENT: Denies: Head Aches, Sinus Congestion, Sinus Drainage Cardiovascular: Reports: Palpitations. Denies: Chest Pain Respiratory: Denies: Cough, Shortness of Breath Gastrointestinal: Denies: Abdominal Pain, Nausea, Vomiting Genitourinary: Denies: Dysuria Musculoskeletal: Denies: Joint Pain, Joint Tenderness Skin: Denies: Rash, Wounds Neurological: Denies: Numbness, Tingling, Focal weakness Psychiatric: Denies: Anxiety, Depression Endocrine: Reports: Change in Body Habitus - States that she has intentionally lost a 6 7 pounds over the past several months Hematologic/ Lymphatic: Denies: Easy Bruising, Easy Bleeding, Hx of blood clot Comment: RV systems are negative except for as mentioned above and in HPI. VTE Information - Inpt Only VTE Present on Admission: No VTE Mechan Device Prophylaxis: None VTE Pharm Prophylaxis ordered?: No Reason prophylaxis not ordered:: Procedure Not Indicated - Physical Exam Vitals/I&O's: Vital Signs Temp Pulse Resp BP Pulse Ox 36.4 C L 67 13 91/56 L 97 03/21/19 17:30 03/21/19 18:38 03/21/19 18:38 03/21/19 18:38 03/21/19 18:38 Oxygen Flow Rate (L/min) 5 Oxygen Delivery Method Room Air Weight: 81.3 kg Body Mass Index (BMI) 28.9 Intake and Output for Last 24 Hours 03/19/19 03/20/19 03/21/19 23:59 23:59 23:59 Intake Total 1999 Balance 1999 General: Alert, Cooperative, No apparent distress, - - Lying in bed. No acute distress. No respiratory distress. No conversational dyspnea. HEENT: Atraumatic, Normocephalic Oral: Moist Mucosa, No Gingival or Mucosal Lesions/ Ulcerations Neck: No Nodes, Thyroid Normal Size and Texture Lungs: Clear to auscultation, Normal air movement, No rhonchi, No wheeze, No rales Cardiovascular: Regular rate, Regular Rhythm, Normal S1, Normal S2, No murmurs Abdomen: Bowel Sounds Present, Soft, Non Tender, Non-Distended, No Hepato- splenomegaly Extremities: No Calf Tenderness, Edema - Trace Skin: No rashes, No breakdown Musculoskeletal: No Tenderness to Palpation of Joints or Extremities, No Muscle Wasting Lymphatic: No Cervical, Supraclavicular, or Inguinal Adenopathy Neurological: Deep Tendon Reflexes 2+/4 and Symmetrical, - - Clonus Psych/Mental Status: Normal Affect, Appropriate Laboratory Results 03/21/19 17:30: WBC 12.0 H, RBC 4.97, Hgb 14.4, Hct 46.0, MCV 92.6, MCH 29.0, MCHC 31.3 L, RDW Std Deviation 52.0 H, RDW Coeff of Jacque 15.3 H, Plt Count 289, MPV 11.5, Immature Gran % (Auto) 0.400, Neut % (Auto) 79.0 H, Lymph % (Auto) 14.8 L, [place] % (Auto) 4.7, Eos % (Auto) 0.8, Baso % (Auto) 0.3, Absolute Neuts (auto) 9.5 H, Absolute Lymphs (auto) 1.77, Nucleated RBC % 0 03/21/19 17:30: PT 23.1 H, INR 2.1 03/21/19 17:30: Sodium 138, Potassium 4.2, Chloride 105, Carbon Dioxide 24.0, Anion Gap 9, BUN 29 H, Creatinine 1.43 H, Estim Creat Clear Calc 31.33, Est GFR (MDRD) Af Amer 46 L, Est GFR (MDRD) Non-Af 38 L, BUN/Creatinine Ratio 20.3 H, Glucose 160 H, Calcium 9.3, Troponin I 0.020 EKG reviewed and showed an SVT type pattern. Current Medications Sodium Chloride () 1,000 mls @ 150 mls/hr IV .Q6H40M [facility] Sodium Chloride () 1,000 mls @ 999 mls/hr IV .Q1H1M STA Stop: 03/21/19 19:21 Last Infusion: 03/21/19 18:10 Dose: Infused Documented by: Sodium Chloride () 1,000 mls @ 999 mls/hr IV .Q1H1M STA Stop: 03/21/19 19:29 Last Infusion: 03/21/19 18:31 Dose: Infused Documented by: Assessment/Plan All Active Problems (Last Updated 02/22/19 @ 09:24 by MAREK Nathan) Chest pain, unspecified (Acute) Atrial flutter (Acute) Atrial flutter with rapid ventricular response (Acute) Cellulitis of left leg (Resolved) Hematoma of left lower extremity (Resolved) Institution of sotalol therapy (Resolved) 1. Atrial flutter with RVR * Since converted to normal sinus rhythm status post DC cardioversion * Dr. Castrejon, was contacted through the emergency room and advised continue with her standard medications, which is sotalol and that Dr. Leyva, the patient's assistant softball coach, would see her in the morning. * Check an echocardiogram * Patient currently anticoagulated, with an INR of 2.1 2. Hypotension * Initially cardiogenic given the flutter with RVR. After the cardioversion, likely related with the propofol which is probably wearing off and currently patient is normotensive * Monitor. No need for ICU level of care at this time 3. VTE prophylaxis: Low risk as patient is observation and already anticoagulated. 4. Advanced care planning: Confer with the patient, patient is full CODE STATUS. Code Visit OBSV E&M: 21106 Initial observation care L3
--- NOTE | 2019-03-21 20:18 | ECHOCS_ITS ---
Reason For Study: ATRIAL FLUTTER Procedure This was a 2D Doppler, Color Flow transthoracic echocardiogram. The study was technically difficult. PT had difficulty staying in left lateral decubitus position. Contrast injection was performed. Exam performed portable in patient room. Left Ventricle Normal LV size. Left ventricular systolic function is normal. The estimated ejection fraction is 65 %. No regional wall motion abnormalities noted. Right Ventricle Normal RV size. Normal systolic function. Atria The left atrium is severely enlarged. The right atrium is moderately enlarged. No doppler evidence for ASD. Mitral Valve There is mild to moderate mitral annular calcification. Extension of the mitral annular calcification onto the base of the mitral valve leaflet. Mild (1+) mitral valve insufficiency. Tricuspid Valve Normal tricuspid valve. Mild tricuspid valve insufficiency. Right ventricular systolic pressure estimated to be 47 mmHg. Aortic Valve Trisinus/trileaflet aortic valve. Mild diffuse aortic valve thickening. Trivial aortic valve insufficiency. Pulmonic Valve The pulmonic valve is not well visualized. Great Vessels Normal sized aortic root. Pericardium/Pleural No pericardial effusion. Medication Diluted definity 3.0ml given slow IV push to enhance endocardial definition. MMode/2D Measurements & Calculations LVIDd: 5.3 cm IVSd: 1.2 cm Ao root diam: 3.5 cm LVIDs: 3.4 cm LVPWd: 1.1 cm RVDd: 4.2 cm FS: 35.5 % LAV(MOD-bp): 109.7 ml LA A4 area: 32.8 cm2 LA dimension(2D): 4.8 cm LAV(MOD-bp) Indexed: 57.5 ml/m2 LAV(MOD-sp2): 102.8 ml LAV(MOD-sp4): 117.4 ml RA A4 area: 25.2 cm2 Time Measurements MV dec time: 0.13 sec Doppler Measurements & Calculations MV E max zane: 98.4 cm/sec Lat Peak E' Zane: 11.2 cm/sec Med Peak E' Zane: 11.2 cm/sec MV A max zane: 42.9 cm/sec E/E' lat: 8.8 E/E' med: 8.8 MV E/A: 2.3 Ao V2 max: 173.3 cm/sec AI max zane: 383.8 cm/sec LV V1 max: 117.9 cm/sec Ao max P.0 mmHg AI max P.9 mmHg LV V1 max P.6 mmHg AI dec slope: 224.6 cm/sec2 AI P1/2t: 500.4 msec PA V2 max: 88.2 cm/sec TR max zane: 330.9 cm/sec TR max P.8 mmHg Interpretation Summary The study was technically difficult. Contrast injection was performed. Left ventricular systolic function is normal. The estimated ejection fraction is 65 %. The left atrium is severely enlarged. The right atrium is moderately enlarged. There is mild to moderate mitral annular calcification. Extension of the mitral annular calcification onto the base of the mitral valve leaflet. Mild (1+) mitral valve insufficiency. Mild tricuspid valve insufficiency. Mild diffuse aortic valve thickening. Trivial aortic valve insufficiency. Right ventricular systolic pressure estimated to be 47 mmHg. Transmitral diastolic flow velocities suggest diastolic dysfunction (pseudonormal pattern). Ordering Physician: Abelardo Arthur Referring Physician: Rikki Javier Performed By: Kianna Smiley, MARIA DEL CARMEN, RVT
--- NOTE | 2019-03-21 20:27 | ED.RN ---
3rd 1000ml of fluids was ordered for 150 ml per hour was entirely infused upon this nurses arrival @ 1900. aware.
[2019-03-21] MEDS: Sotalol Hydrochloride 80 MG Tablet PO (21:11)
[2019-03-22] VITALS (7 sets, daily range): BP systolic 116–137; BP diastolic 60–81; PULSE 64–74; RESP 16–18; TEMP 36.6–37; O2SAT 92–96
[2019-03-22 06:09] LABS: International Normalized Ratio 2.4; Prothrombin Time (Protime)PT. 26.3 SECONDS (11.7-14.9)
[2019-03-22 06:26] LABS: Anion Gap 6 (5-15); BUN 23 mg/dL (7-18); Chloride 113 mmol/L (98-107); Creatinine, Serum 0.79 mg/dL (0.55-1.02); EST Glomerular Filtration Rate 75 mL/min (>60); Est Glom Filt Rate - Afr Amer 91 mL/min (>60); Glucose 85 mg/dL (74-106); Potassium 3.9 mmol/L (3.5-5.1); Sodium Level 143 mmol/L (136-145)
[2019-03-22] MEDS: Ascorbic Acid 500 MG Tablet 1000 MG PO (10:33)
[2019-03-22] MEDS: Magnesium Oxide 400 MG Tablet PO (10:33)
[2019-03-22] MEDS: Sotalol Hydrochloride 80 MG Tablet PO (10:33)
--- NOTE | 2019-03-22 13:36 | DCINST_ITS ---
You will use the following diet at home:: Cardiac Your food should be the consistency of: Regular Discharge Activity: Return to Normal Activity Weight Bearing Status: Weight bearing as tolerated Call your doctor if you observe: Fever of 101 or Higher, Shortness of breath, Dizziness, Fainting spells, Chest pain, Increased palpitations (irregular heartbeat), Uncontrolled pain Allergies/Adverse Reactions: Allergies No Known Allergies Allergy (Verified 02/22/19 09:05) Medications to take at Discharge Ascorbic Acid [Vitamin C] 1,000 mg PO QHS 10/28/16 cholecalciferol (vitamin D3) 2,000 unit capsule 2,000 unit PO QODAY 11/11/18 Warfarin Sodium 1 mg PO DAILY 12/02/18 sotalol 80 mg tablet 80 mg PO BID 02/22/19 L.acidoph,Paracasei, B.lactis [Probiotic] 1 ea PO DAILY 03/21/19 Magnesium Oxide [Mag-Ox 400] 400 mg PO DAILY 03/21/19 Vitamin A 10,000 unit PO QHS 03/21/19 Vitamin E 2,000 unit PO QODAY 03/21/19 Warfarin Sodium 2.5 mg PO DAILY 03/21/19 Primary Care Physician: Yaya Brandt Chi, MD [Primary Care Provider] - Please follow up with your Primary Care Physician in: 1 week. Test Results: Test results from this visit will be discussed in further detail at your follow- up appointment, if applicable. Please Follow Up With: Sergio Leyva MD When: call his office.
--- NOTE | 2019-03-22 13:37 | DS.PCM_ITS ---
Discharge Date and Diagnosis Date of Admission: 03/21/19 Date of Discharge: 03/22/19 - Primary Discharge Diagnosis #1 atrial flutter with RVR status post cardioversion. #2 transient hypotension, resolved. 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 Mild cardiomegaly. Electronically Signed: Blake Pearson, at 18:47 EDT Tel , Service support , Dr. Leyva, cardiology. Operations: None, - - Incision and drainage with debridement of traumatic hematoma left lower anteromedial leg Procedures: 2-D Echocardiogram, Cardioversion, EKG Summary of Care Provided: Patient seen and examined on the day of discharge and appeared to be stable to be discharged home. She remained in sinus rhythm and heart rate has been under control. Blood pressure stable. She denied chest pain, shortness of breath, palpitation, dizziness or lightheadedness. This is a 78 years old female patient presented to the emergency room because of palpitation, found to have atrial flutter with RVR. She does have a history of chronic atrial fibrillation/flutter status post EPS and ablation in the past. Upon arrival to ED, patient was unstable, was diaphoretic and decision was made to undergo cardioversion. Cardioversion performed and she converted back to sinus rhythm. She was admitted to PCU. She remained in sinus rhythm overnight and heart rate has been stable. Her initial EKG revealed atrial flutter with RVR, no acute ischemic changes. Repeat EKG revealed normal sinus rhythm. Troponin was negative. Her routine blood work was remarkable for creatinine of 1.4 which improved with IV fluids. She was maintained on sotalol and Coumadin. Her INR was therapeutic. Cardiology consulted. 2D echocardiogram revealed ejection fraction of 65%, severely enlarged left atrium, moderately enlarged right atrium, RVSP 47. Cardiology recommended no changes to her medications and stated that she is stable and can be discharged with plan to follow-up with her director food safety as outpatient. Patient discharged home in a stable medical condition, discharged on sotalol same dose as well as Coumadin, plan to follow- up with her director food safety as outpatient, follow-up with PCP in 1 week and follow-up with Dr. Leyva according to his recommendation. - Physical Exam Vitals/I&O's: Vital Signs Temp Pulse Resp BP Pulse Ox 97.8 F 72 18 116/60 96 03/22/19 10:31 03/22/19 10:31 03/22/19 10:31 03/22/19 10:31 03/22/19 10:31 Oxygen Flow Rate (L/min) 2 Oxygen Delivery Method Room Air Weight: 181 lb 10.574 oz Body Mass Index (BMI) 29.3 Intake and Output for Last 24 Hours 03/20/19 03/21/19 03/22/19 23:59 23:59 23:59 Intake Total 3000 / 3500 930 / 930 Balance 3000 / 3500 930 / 930 General: Alert, Oriented x3, Cooperative, No apparent distress HEENT: Atraumatic, PERRLA, EOMI, Normocephalic Oral: Moist Mucosa, No Gingival or Mucosal Lesions/ Ulcerations Neck: Supple, No JVD, Negative Carotid Bruits, Trachea Midline, Thyroid Normal Size and Texture Lungs: Clear to auscultation, Normal air movement, No rhonchi, No wheeze, No rales Cardiovascular: Regular rate, Regular Rhythm, Normal S1, Normal S2, PMI Normal Abdomen: Bowel Sounds Present, Soft, Non Tender, Non-Distended, No Hepato- splenomegaly Extremities: No clubbing, No cyanosis, No edema Skin: No rashes, No breakdown Lymphatic: No Cervical, Supraclavicular, or Inguinal Adenopathy Neurological: Cranial nerves II-XII grossly intact, Neuro grossly intact Psych/Mental Status: Normal Affect, Appropriate Laboratory Results 03/21/19 17:30: WBC 12.0 H, RBC 4.97, Hgb 14.4, Hct 46.0, MCV 92.6, MCH 29.0, MCHC 31.3 L, RDW Std Deviation 52.0 H, RDW Coeff of Jacque 15.3 H, Plt Count 289, MPV 11.5, Immature Gran % (Auto) 0.400, Neut % (Auto) 79.0 H, Lymph % (Auto) 14.8 L, Mcdonough % (Auto) 4.7, Eos % (Auto) 0.8, Baso % (Auto) 0.3, Absolute Neuts (auto) 9.5 H, Absolute Lymphs (auto) 1.77, Nucleated RBC % 0 03/21/19 17:30: PT 23.1 H, INR 2.1 03/21/19 17:30: Sodium 138, Potassium 4.2, Chloride 105, Carbon Dioxide 24.0, Anion Gap 9, BUN 29 H, Creatinine 1.43 H, Estim Creat Clear Calc 31.33, Est GFR (MDRD) Af Amer 46 L, Est GFR (MDRD) Non-Af 38 L, BUN/Creatinine Ratio 20.3 H, Glucose 160 H, Calcium 9.3, Troponin I 0.020 03/22/19 05:46: PT 26.3 H, INR 2.4 03/22/19 05:46: Sodium 143, Potassium 3.9, Chloride 113 H, Carbon Dioxide 24.0, Anion Gap 6, BUN 23 H, Creatinine 0.79, Estim Creat Clear Calc 44.80, Est GFR (MDRD) Af Amer 91, Est GFR (MDRD) Non-Af 75, BUN/Creatinine Ratio 29.0 H, Glucose 85, Calcium 8.0 L Current Medications Acetaminophen (Tylenol) 650 mg PO Q6H PRN PRN PRN Reason: Pain Score 1-3/Temp > 100.7 F Ascorbic Acid (Vitamin C) 1,000 mg PO DAILY [facility] Last Admin: 03/22/19 10:33 Dose: 1,000 mg Documented by: Cholecalciferol (Vitamin D) 2,000 unit PO DAILY [facility] Last Admin: 03/22/19 10:33 Dose: 2,000 unit Documented by: Dextrose (D50w Syringe) 0 gm IV X1 PRN; Protocol PRN Reason: Hypoglycemia Glucagon () 1 mg IM .X1 PRN PRN Reason: Hypoglycemia Magnesium Oxide (Mag-Ox 400) 400 mg PO DAILY [facility] Last Admin: 03/22/19 10:33 Dose: 400 mg Documented by: Melatonin (Melatonin) 3 mg PO QHS PRN PRN PRN Reason: INSOMNIA Nitroglycerin (Nitrostat) 0.4 mg SUBLINGUAL Q5M PRN PRN Reason: CARDIAC/CHEST PAIN Senna/Docusate Sodium (Senokot-S, Karen-Colace) 2 tablet PO BID PRN PRN PRN Reason: Constipation Sotalol HCl (Betapace (G)) 80 mg PO BID [facility] Last Admin: 03/22/19 10:33 Dose: 80 mg Documented by: Warfarin Sodium (Coumadin (Pbkc)) 1 mg PO DAILY@1700 [facility] Last Admin: 03/21/19 21:12 Dose: 1 mg Documented by: Warfarin Sodium (Coumadin (Pbkc)) 2.5 mg PO DAILY@1700 [facility] Last Admin: 03/21/19 21:12 Dose: 2.5 mg Documented by: Discharge Activity: Return to Normal Activity Weight Bearing Status: Weight bearing as tolerated Call your doctor if you observe: Fever of 101 or Higher, Shortness of breath, Dizziness, Fainting spells, Chest pain, Increased palpitations (irregular heartbeat), Uncontrolled pain Home Medications: Medications to take at Discharge Ascorbic Acid [Vitamin C] 1,000 mg PO QHS 10/28/16 cholecalciferol (vitamin D3) 2,000 unit capsule 2,000 unit PO QODAY 11/11/18 Warfarin Sodium 1 mg PO DAILY 12/02/18 sotalol 80 mg tablet 80 mg PO BID 02/22/19 L.acidoph,Paracasei, B.lactis [Probiotic] 1 ea PO DAILY 03/21/19 Magnesium Oxide [Mag-Ox 400] 400 mg PO DAILY 03/21/19 Vitamin A 10,000 unit PO QHS 03/21/19 Vitamin E 2,000 unit PO QODAY 03/21/19 Warfarin Sodium 2.5 mg PO DAILY 03/21/19 Primary Care Physician: Yaya Brandt Chi, MD [Primary Care Provider] - Please follow up with your Primary Care Physician in: 1 week. Please Follow Up With: Moodispaw,Sergio, MD When: call his office. Disposition: Home Minutes spent on discharge:: 26 Patient Condition:: Stable Medical Necessity - Tobacco Use Smoking Status: Former smoker Meaningful Use Info Meaningful Use Diagnoses (Choose all that apply): None applicable Code Visit OBSV E&M: 56514 Observation care discharge
--- NOTE | 2019-03-22 13:40 | CON.PCM_ITS ---
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 She states that she has undergone subsequent follow-up by her F architecture technician after her second EPS/RFA. She has been treated medically which has included alteration of her medications with discontinuation of her beta-nely therapy/calcium channel antagonist therapy and being placed on antiarrhythmic therapy with sotalol/Betapace. She has done well until earlier this morning. She states that she felt palpitations. She then felt somewhat lightheaded and dizzy and was near syncopal. She presented to the [facility] emergency department. She was diagnosed with atrial flutter with rapid ventricular response and associated hypotension. She subsequently underwent synchronized biphasic DC cardioversion and regain sinus rhythm. She was placed in the hospital for further evaluation and care. She has remained in sinus rhythm. She has not complained of ongoing symptoms of palpitation or rapid rates. She has had no other episodes of concerning chest discomfort or difficulty breathing. There has been no episodes of syncope. She states to the best of her knowledge she is to remain on her medications and have future outpatient follow-up locally and with her [facility] elective landscape technician with follow- up electrocardiograms. She did have a troponin I level performed and was reported as negative. Her ECG demonstrated findings compatible with atrial flutter with rapid ventricular response and subsequently following her synchronized biphasic DC cardioversion return to sinus rhythm with no acute ECG changes. He also had a follow-up chest x-ray which per radiology demonstrated no acute findings. She has subsequently undergone evaluation with a transthoracic echocardiogram. The results are as noted below. At the present time she states she is back to her baseline state. She request discharge home with continued outpatient follow-up. [] Past Medical History Allergies/Adverse Reactions: Allergies No Known Allergies Allergy (Verified 02/22/19 09:05) Home Medications: Ambulatory Orders Medication Instructions Recorded Ascorbic Acid [Vitamin C] 1,000 mg PO QHS 10/28/16 cholecalciferol (vitamin D3) 2,000 2,000 unit PO QODAY 11/11/18 unit capsule Warfarin Sodium 1 mg PO DAILY 12/02/18 sotalol 80 mg tablet 80 mg PO BID 02/22/19 L.acidoph,Paracasei, B.lactis 1 ea PO DAILY 03/21/19 [Probiotic] Magnesium Oxide [Mag-Ox 400] 400 mg PO DAILY 03/21/19 Vitamin A 10,000 unit PO QHS 03/21/19 Vitamin E 2,000 unit PO QODAY 03/21/19 Warfarin Sodium 2.5 mg PO DAILY 03/21/19 Past Medical History (Chronic Problems): Chronic Problems (Last Updated 03/22/19 @ 08:49 by Maria E Montoya) Paroxysmal atrial fibrillation (Chronic) EPS/RFA on 01/15/2017 and 12/27/2018; DCCV on 11/23/2018; 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 (Chronic) long-term current use of 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 (Chronic) Non-rheumatic mitral regurgitation (Chronic) Essential hypertension (Chronic) 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 cardiac RFA. Gamma knife Psychiatric History: No pertinent psych hx HR INTERNSHIP History: No pertinent HR INTERNSHIP history - *Family History Maternal Family History: Family History (Last Reviewed 03/21/19 @ 19:14 by Abelardo Arthur DO) Father CAD (coronary artery disease) History Items: Cancer - Breast cancer, Heart Disease Paternal Family History: Family History (Last Reviewed 03/21/19 @ 19:14 by Abelardo Arthur DO) Father CAD (coronary artery disease) History Items: No pertinent history Smoking Status: Former smoker Alcohol: None Drugs: None Review of Systems - Review of Systems General: Denies: Fever, Night Sweats, Fatigue Cardiovascular: Reports: Palpitations, Lightheadedness, Dizziness, Near Syncope. Denies: Chest Discomfort, Shortness of Breath, Orthopnea, PND, Peripheral Edema, Syncope Respiratory: Denies: Cough, Sputum Production, Hemoptysis Gastrointestinal: Denies: Hematemesis, Hematochezia, Melena Genitourinary: Denies: Dysuria, Hematuria Skin: Denies: Rash Subjectve: This is a 78-year-old white female who appears to be resting comfortably at the moment in no acute distress. Objective: Vital Signs Temp Pulse Resp BP Pulse Ox 97.8 F 72 18 116/60 96 03/22/19 10:31 03/22/19 10:31 03/22/19 10:31 03/22/19 10:31 03/22/19 10:31 Oxygen Flow Rate (L/min) 2 Oxygen Delivery Method Room Air Weight: 181 lb 10.574 oz Body Mass Index (BMI) 29.3 Intake and Output for Last 24 Hours 03/20/19 03/21/19 03/22/19 23:59 23:59 23:59 Intake Total 3000 / 3500 930 / 930 Balance 3000 / 3500 930 / 930 General: Awake, Alert, Oriented x 3, Cooperative, No Acute Distress HEENT: Atraumatic, Normocephalic, PERRL, EOMI, Sclera Non Icteric Oral: Moist Mucosa Neck: Supple, Good ROM, No JVD Lungs: Clear to auscultation Cardiovascular: Regular Rhythm, Normal S1, Normal S2 Abdomen: Bowel Sounds Present, Soft, Non Tender Extremities: No edema Neurological: No Focal Motor or Sensory Deficit Psych/Mental Status: Appropriate 03/21/19 17:30: WBC 12.0 H, RBC 4.97, Hgb 14.4, Hct 46.0, MCV 92.6, MCH 29.0, MCHC 31.3 L, Plt Count 289, MPV 11.5, Immature Gran % (Auto) 0.400, Neut % (Auto) 79.0 H, Lymph % (Auto) 14.8 L, [place] % (Auto) 4.7, Eos % (Auto) 0.8, Baso % (Auto) 0.3, Absolute Neuts (auto) 9.5 H, Nucleated RBC % 0 03/21/19 17:30: PT 23.1 H, INR 2.1 03/21/19 17:30: Sodium 138, Potassium 4.2, Chloride 105, Carbon Dioxide 24.0, Anion Gap 9, BUN 29 H, Creatinine 1.43 H, Est GFR (MDRD) Af Amer 46 L, Est GFR (MDRD) Non-Af 38 L, BUN/Creatinine Ratio 20.3 H, Glucose 160 H, Calcium 9.3, Troponin I 0.020 03/22/19 05:46: PT 26.3 H, INR 2.4 03/22/19 05:46: Sodium 143, Potassium 3.9, Chloride 113 H, Carbon Dioxide 24.0, Anion Gap 6, BUN 23 H, Creatinine 0.79, Est GFR (MDRD) Af Amer 91, Est GFR (MDRD) Non-Af 75, BUN/Creatinine Ratio 29.0 H, Glucose 85, Calcium 8.0 L Rhythm: Sinus rhythm EKG: Sinus rhythm; no acute ECG changes ECHO: Interpretation Summary The study was technically difficult. Contrast injection was performed. Left ventricular systolic function is normal. The estimated ejection fraction is 65 %. The left atrium is severely enlarged. The right atrium is moderately enlarged. There is mild to moderate mitral annular calcification. Extension of the mitral annular calcification onto the base of the mitral valve leaflet. Mild (1+) mitral valve insufficiency. Mild tricuspid valve insufficiency. Mild diffuse aortic valve thickening. Trivial aortic valve insufficiency. Right ventricular systolic pressure estimated to be 47 mmHg. Transmitral diastolic flow velocities suggest diastolic dysfunction (pseudonormal pattern). CXR: As noted above Assessment/Plan 1. Atrial flutter with rapid ventricular response The patient is now status post synchronized biphasic DC cardioversion by the [facility] emergency department staff. She has regained sinus rhythm. She remains symptomatically and hemodynamically stable. At the present time she is going to continue medical management. This will include her rate limiting/antiarrhythmic therapy with sotalol/Betapace. She will also continue her 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 therapy with warfarin/Coumadin. The options with respect to ongoing evaluation care locally include con sideration for increase in her sotalol/Betapace dose with continued inpatient cardiac rhythm monitoring in order to monitor for any obvious adverse events, continued anticoagulation, then continued outpatient cardiovascular follow-up. The options with respect to her architecture technician are also to continue to follow with her architecture technician for future evaluation and care with respect to alteration medical therapy and/or the need for a third EPS/RFA procedure. The patient's course was discussed with her. At the present time she wishes to continue her current medical therapy and be released home for continued outpatient follow-up both locally and with her architecture technician. She does not want to remain in the hospital at this time. She states that she needs to travel to the [facility] to visit family members this week that are unable to travel to [place] to visit her. 2. Atrial fibrillation status post EPS/RFA x2 At the present time the patient has undergone extensive evaluation for her history of atrial fibrillation with tertiary care center evaluation including EPS/RFA x2. She is currently on medical therapy as noted above. At the moment she appears to be remaining in sinus rhythm. Additional evaluation care was discussed with her as noted above. Again she wishes to be released home for continued outpatient follow-up locally and with her elective landscape technician. 3. Mitral valve regurgitation She does have an element of MR. It has been reassessed by echocardiographic studies. The findings are as noted above. She will need continued future outpatient follow-up as deemed appropriate. 4. Hypertension She will continue medical management with adjustment as deemed appropriate. 5. Anticoagulation The patient is anticoagulated. She needs to remain anticoagulated barring a change in her cardiovascular risk factor evaluation care protocol based upon her history of cardiac dysrhythmias, recurrent cardiac dysrhythmias, recent EPS/RFA, and her recent synchronized biphasic DC cardioversion. Comment: The above was discussed with the patient as well as Dr. Santos. This note was generated using a voice recognition system and there may be incorrect words, spelling or punctuation that were not noted when reviewing the office note prior to saving.
== END 2019-03-22 13:36 | disposition home or self-care (01) ==
LOC: ED 18:01 → PCU 19:54
PROVIDERS: Emergency Provider Emergency Medicine; Family Provider Family Medicine Geriatric Medicine; PCP Family Medicine Geriatric Medicine; Visit Provider Hospitalist
DX: I48.92 Unspecified atrial flutter (principal); I95.9 Hypotension, unspecified; R55 Syncope and collapse; I08.3 Combined rheumatic disorders of mitral, aortic and tricuspid valves; I48.0 Paroxysmal atrial fibrillation; I10 Essential (primary) hypertension; I48.20 Chronic atrial fibrillation, unspecified; E78.5 Hyperlipidemia, unspecified; Z79.899 Other long term (current) drug therapy; Z79.01 Long term (current) use of 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s; Z87.891 Personal history of nicotine dependence
CPT/HCPCS: 36415; 71045; 80048; 84484; 85025; 85610; 92960; 93005; 93306; 99218; 99285; J7030; Q9957; A4216; C8929; G0378

== ENCOUNTER → 2019-04-11 | Outpatient (CLI) | payer MEDICARE, OTHER, SELFPAY ==
[2019-04-11 10:50] VITALS: BMI 28.9
[2019-04-11 12:50] LABS: Absolute Lymphocyte Count 1.09 X10^3/uL (0.83-4.51); Absolute Neutrophil Count 5.5 X10^3/uL (2.0-7.7); Basophil# 0.04 X10^3/uL; Basophil% 0.5 % (0-1); Eosinophil# 0.18 X10^3/uL; Eosinophils% 2.4 % (0-5); Hematocrit 40.6 % (37-47); Hemoglobin 12.6 g/dL (12.0-15.0); Lymphocyte # 1.09 X10^3/ul (4.0); Lymphocyte % 14.8 % (19-41); Mean Corpuscular Hgb 29.1 pg (27.0-32.0); Mean Corpuscular Volume 93.8 fL (81-99); Mean Platelet Vol. 11.4 fl (6.2-12.0); Monocyte# 0.48 X10^3/uL; Monocyte% 6.5 % (0-10); NRBC Flagged by Analyzer 0 % (0-5); Neutrophil # 5.53 X10^3/uL (2.7-7.7); Neutrophil % 75.4 % (47-70); Platelet Count 251 K/mm3 (150-450); RBC Distribution Width CV 15.6 % (11.6-14.6); RBC Distribution Width SD 53.2 fl (35.1-43.9); Red Blood Count 4.33 M/mm3 (4.2-5.4); White Blood Count 7.4 K/mm3 (4.4-11.0)
[2019-04-11 13:12] LABS: ALB/GLOB Ratio 0.8 RATIO (0.9-2.4); AST(SGOT) 19 U/L (15-37); Alanine Aminotransfer ALT/SGPT 26 U/L (13-56); Albumin, Serum 3.1 g/dL (3.2-5.0); Alkaline Phosphatase 84 U/L (45-117); Anion Gap 7 (5-15); BUN 25 mg/dL (7-18); BUN/Creat Ratio 27.9 RATIO (10-20); Calcium,Total 8.3 mg/dL (8.5-10.1); Chloride 106 mmol/L (98-107); EST Glomerular Filtration Rate 65 mL/min (>60); Est Glom Filt Rate - Afr Amer 79 mL/min (>60); Glucose 86 mg/dL (74-106); Potassium 4.4 mmol/L (3.5-5.1); Protein, Total 7.1 g/dL (6.4-8.2); Sodium Level 140 mmol/L (136-145); Thyroid Stim Hormone (TSH) 3.36 uIU/mL (0.358-3.74)
== END | disposition home or self-care (01) ==
LOC: POLAB3 10:51
PROVIDERS: Family Provider Family Medicine Geriatric Medicine; PCP Family Medicine Geriatric Medicine; Visit Provider Family Medicine Geriatric Medicine
DX: E55.9 Vitamin D deficiency, unspecified (principal); I10 Essential (primary) hypertension
CPT/HCPCS: 36415; 80053; 82306; 84443; 85025

== ENCOUNTER → 2019-04-12 10:01 | Outpatient (CLI) | payer MEDICARE, OTHER, SELFPAY ==
[2019-02-22 09:05] VITALS: BMI 28.8
[2019-04-11 10:50] VITALS: BMI 28.9
== END ==
PROVIDERS: Family Provider Family Medicine Geriatric Medicine; PCP Family Medicine Geriatric Medicine; Referring Provider Nurse Practitioner Family; Visit Provider Nurse Practitioner Family
DX: R06.00 Dyspnea, unspecified (principal)

== ENCOUNTER 2019-04-18 10:06 | Outpatient (RCR) | payer MEDICARE, OTHER, SELFPAY ==
[2018-12-02 11:20] VITALS: BMI 29.5
[2019-04-11 10:50] VITALS: BMI 28.9
[2019-04-18 11:34] LABS: International Normalized Ratio 2.1; Prothrombin Time (Protime)PT. 23.9 SECONDS (11.7-14.9)
== END 2019-04-18 18:00 | disposition home or self-care (01) ==
LOC: LAB 10:06
PROVIDERS: Family Provider Family Medicine Geriatric Medicine; PCP Family Medicine Geriatric Medicine; Referring Provider Internal Medicine Cardiovascular Disease; Visit Provider Internal Medicine Cardiovascular Disease
DX: I48.0 Paroxysmal atrial fibrillation (principal); Z79.01 Long term (current) use of 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s
CPT/HCPCS: 36415; 85610

== ENCOUNTER 2019-05-16 09:57 | Outpatient (RCR) | payer MEDICARE, OTHER, SELFPAY ==
[2019-04-11 10:50] VITALS: BMI 28.9
[2019-05-16 11:25] LABS: International Normalized Ratio 2.1; Prothrombin Time (Protime)PT. 23.7 SECONDS (11.7-14.9)
== END 2019-05-16 18:00 | disposition home or self-care (01) ==
LOC: LAB 09:57
PROVIDERS: Family Provider Family Medicine Geriatric Medicine; PCP Family Medicine Geriatric Medicine; Referring Provider Internal Medicine Cardiovascular Disease; Visit Provider Internal Medicine Cardiovascular Disease
DX: I48.0 Paroxysmal atrial fibrillation (principal); Z79.01 Long term (current) use of 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s
CPT/HCPCS: 36415; 85610

== ENCOUNTER 2019-06-13 10:27 | Outpatient (RCR) | payer MEDICARE, OTHER, SELFPAY ==
[2019-04-11 10:50] VITALS: BMI 28.9
[2019-06-13 11:13] LABS: International Normalized Ratio 2.1; Prothrombin Time (Protime)PT. 23.7 SECONDS (11.7-14.9)
== END 2019-06-13 18:00 | disposition home or self-care (01) ==
LOC: LAB 10:27
PROVIDERS: Family Provider Family Medicine Geriatric Medicine; PCP Family Medicine Geriatric Medicine; Referring Provider Internal Medicine Cardiovascular Disease; Visit Provider Internal Medicine Cardiovascular Disease
DX: I48.0 Paroxysmal atrial fibrillation (principal); Z79.01 Long term (current) use of 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s
CPT/HCPCS: 36415; 85610

== ENCOUNTER 2019-07-11 09:29 | Outpatient (RCR) | payer MEDICARE, OTHER, SELFPAY ==
[2019-04-11 10:50] VITALS: BMI 28.9
[2019-07-11 10:31] LABS: International Normalized Ratio 2.2; Prothrombin Time (Protime)PT. 24.5 SECONDS (11.7-14.9)
== END 2019-07-11 18:00 | disposition home or self-care (01) ==
LOC: LAB 09:29
PROVIDERS: Family Provider Family Medicine Geriatric Medicine; PCP Family Medicine Geriatric Medicine; Referring Provider Internal Medicine Cardiovascular Disease; Visit Provider Internal Medicine Cardiovascular Disease
DX: I48.0 Paroxysmal atrial fibrillation (principal); Z79.01 Long term (current) use of 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s
CPT/HCPCS: 36415; 85610

== ENCOUNTER 2019-08-23 10:14 | Outpatient (RCR) | payer MEDICARE, OTHER, SELFPAY ==
[2019-04-11 10:50] VITALS: BMI 28.9
[2019-08-01 10:23] LABS: International Normalized Ratio 2.2; Prothrombin Time (Protime)PT. 24.4 SECONDS (11.7-14.9)
[2019-08-17 11:45] LABS: International Normalized Ratio 1.8
[2019-08-23 10:39] LABS: International Normalized Ratio 2.2; Prothrombin Time (Protime)PT. 24.1 SECONDS (11.7-14.9)
== END 2019-08-23 18:00 | disposition home or self-care (01) ==
LOC: LAB 10:14
PROVIDERS: Family Provider Family Medicine Geriatric Medicine; PCP Family Medicine Geriatric Medicine; Referring Provider Internal Medicine Cardiovascular Disease; Visit Provider Internal Medicine Cardiovascular Disease
DX: I48.0 Paroxysmal atrial fibrillation (principal); Z79.01 Long term (current) use of 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s
CPT/HCPCS: 36415; 85610

== ENCOUNTER 2019-09-20 10:19 | Outpatient (RCR) | payer MEDICARE, OTHER, SELFPAY ==
[2019-04-11 10:50] VITALS: BMI 28.9
[2019-09-20 11:34] LABS: International Normalized Ratio 2.7; Prothrombin Time (Protime)PT. 27.9 SECONDS (11.7-14.9)
== END 2019-09-22 18:00 | disposition home or self-care (01) ==
LOC: LAB 10:19
PROVIDERS: Family Provider Family Medicine Geriatric Medicine; PCP Family Medicine Geriatric Medicine; Referring Provider Internal Medicine Cardiovascular Disease; Visit Provider Internal Medicine Cardiovascular Disease
DX: I48.0 Paroxysmal atrial fibrillation (principal); Z79.01 Long term (current) use of 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s
CPT/HCPCS: 36415; 85610

== ENCOUNTER → 2019-10-11 11:29 | Outpatient (CLI) | payer MEDICARE, OTHER, SELFPAY ==
[2019-04-11 10:50] VITALS: BMI 28.9
[2019-10-11 12:47] LABS: Absolute Lymphocyte Count 1.11 X10^3/uL (0.83-4.51); Absolute Neutrophil Count 4.6 X10^3/uL (2.0-7.7); Basophil# 0.03 X10^3/uL; Basophil% 0.5 % (0-1); Eosinophil# 0.16 X10^3/uL; Eosinophils% 2.5 % (0-5); Hematocrit 40.5 % (37-47); Hemoglobin 12.7 g/dL (12.0-15.0); Lymphocyte # 1.11 X10^3/ul (4.0); Lymphocyte % 17.3 % (19-41); Mean Corp Hgb Conc 31.4 g/dL (32-36); Mean Corpuscular Hgb 29.5 pg (27.0-32.0); Mean Corpuscular Volume 94.2 fL (81-99); Mean Platelet Vol. 11.8 fl (6.2-12.0); Monocyte# 0.53 X10^3/uL; Monocyte% 8.2 % (0-10); NRBC Flagged by Analyzer 0 % (0-5); Neutrophil # 4.59 X10^3/uL (2.7-7.7); Neutrophil % 71.3 % (47-70); Platelet Count 206 K/mm3 (150-450); RBC Distribution Width CV 14.1 % (11.6-14.6); RBC Distribution Width SD 48.3 fl (35.1-43.9); White Blood Count 6.4 K/mm3 (4.4-11.0)
[2019-10-11 12:55] LABS: Vitamin D,25 Hydroxy 71.6 ng/mL
[2019-10-11 13:09] LABS: ALB/GLOB Ratio 0.8 RATIO (0.9-2.4); AST(SGOT) 19 U/L (15-37); Alanine Aminotransfer ALT/SGPT 29 U/L (13-56); Albumin, Serum 3.2 g/dL (3.2-5.0); Alkaline Phosphatase 89 U/L (45-117); Anion Gap 6 (5-15); BUN 23 mg/dL (7-18); BUN/Creat Ratio 31.2 RATIO (10-20); Chloride 105 mmol/L (98-107); Creatinine, Serum 0.74 mg/dL (0.55-1.02); EST Glomerular Filtration Rate 81 mL/min (>60); Est Glom Filt Rate - Afr Amer 98 mL/min (>60); Globulin 3.9 g/dL (2.2-4.2); Glucose 77 mg/dL (74-106); Potassium 4.2 mmol/L (3.5-5.1); Protein, Total 7.1 g/dL (6.4-8.2); Sodium Level 140 mmol/L (136-145); Thyroid Stim Hormone (TSH) 0.01 uIU/mL (0.358-3.74)
[2019-10-11 16:20] LABS: T3 Uptake 42 % (30-39); T4 Free Direct 1.87 ng/dL (0.76-1.46)
== END ==
PROVIDERS: PCP Family Medicine Geriatric Medicine; Visit Provider Family Medicine Geriatric Medicine
DX: I10 Essential (primary) hypertension (principal); E55.9 Vitamin D deficiency, unspecified; E03.9 Hypothyroidism, unspecified
CPT/HCPCS: 36415; 80053; 82306; 84439; 84443; 84479; 85025

== ENCOUNTER 2019-10-19 10:36 | Outpatient (RCR) | payer MEDICARE, OTHER, SELFPAY ==
[2019-04-11 10:50] VITALS: BMI 28.9
[2019-10-19 11:20] LABS: International Normalized Ratio 2.4; Prothrombin Time (Protime)PT. 25.5 SECONDS (11.7-14.9)
== END 2019-10-19 18:00 | disposition home or self-care (01) ==
LOC: LAB 10:36
PROVIDERS: Family Provider Family Medicine Geriatric Medicine; PCP Family Medicine Geriatric Medicine; Referring Provider Internal Medicine Cardiovascular Disease; Visit Provider Internal Medicine Cardiovascular Disease
DX: I48.0 Paroxysmal atrial fibrillation (principal); Z79.01 Long term (current) use of 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s
CPT/HCPCS: 36415; 85610

== ENCOUNTER → 2019-11-10 14:03 | Outpatient (CLI) | payer MEDICARE, OTHER, SELFPAY ==
[2019-04-11 10:50] VITALS: BMI 28.9
== END ==
PROVIDERS: PCP Family Medicine Geriatric Medicine; Referring Provider Obstetrics & Gynecology; Visit Provider Obstetrics & Gynecology
DX: R30.0 Dysuria (principal)
CPT/HCPCS: 87086; 87088

== ENCOUNTER 2019-11-15 10:06 | Outpatient (RCR) | payer MEDICARE, OTHER, SELFPAY ==
[2019-04-11 10:50] VITALS: BMI 28.9
[2019-11-15 10:59] LABS: International Normalized Ratio 2.5; Prothrombin Time (Protime)PT. 26.4 SECONDS (11.7-14.9)
== END 2019-11-15 18:00 | disposition home or self-care (01) ==
LOC: LAB 10:06
PROVIDERS: Family Provider Family Medicine Geriatric Medicine; PCP Family Medicine Geriatric Medicine; Referring Provider Internal Medicine Cardiovascular Disease; Visit Provider Internal Medicine Cardiovascular Disease
DX: I48.0 Paroxysmal atrial fibrillation (principal); Z79.01 Long term (current) use of 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s
CPT/HCPCS: 36415; 85610

== ENCOUNTER → 2019-11-28 | Outpatient (CLI) | payer MEDICARE, OTHER, SELFPAY ==
[2019-04-11 10:50] VITALS: BMI 28.9
== END | disposition home or self-care (01) ==
LOC: LABSPEC 16:24
PROVIDERS: PCP Family Medicine Geriatric Medicine; Visit Provider Obstetrics & Gynecology
DX: N39.0 Urinary tract infection, site not specified (principal)
CPT/HCPCS: 87086; 87088

== ENCOUNTER 2019-12-13 10:04 | Outpatient (RCR) | payer MEDICARE, OTHER, SELFPAY ==
[2019-04-11 10:50] VITALS: BMI 28.9
== END 2019-12-13 18:00 | disposition home or self-care (01) ==
LOC: LAB 10:04
PROVIDERS: Family Provider Family Medicine Geriatric Medicine; PCP Family Medicine Geriatric Medicine; Referring Provider Internal Medicine Cardiovascular Disease; Visit Provider Internal Medicine Cardiovascular Disease
DX: I48.0 Paroxysmal atrial fibrillation (principal); I48.92 Unspecified atrial flutter; Z79.01 Long term (current) use of 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s
CPT/HCPCS: 36415; 85610

== ENCOUNTER → 2019-12-16 | Outpatient (CLI) | payer MEDICARE, OTHER, SELFPAY ==
[2019-04-11 10:50] VITALS: BMI 28.9
--- NOTE | 2019-12-16 11:58 | US_ITS ---
STUDY: RENAL ULTRASOUND - COMPLETE REASON FOR EXAM: Female, 79 years old. UTI TECHNIQUE: Ultrasound evaluation of the kidneys was performed with real-time and static antonio-scale imaging. COMPARISON: None. FINDINGS: RIGHT KIDNEY: Normal location of the right kidney, which is normal in size. The right kidney measures 10.3 x 4.7 x 3.6 cm. There is a normal cortex of the right kidney. The renal cortex measures 1.3 cm. There is no right renal mass or cyst. There are no right renal calculi. There is no right hydronephrosis. DISTAL RIGHT URETER: There is non-visualization of the distal right ureter. There is no demonstrated right ureterovesical junction calculus. There is a visualized right ureteral jet. LEFT KIDNEY: Normal location of the left kidney, which is normal in size. The left kidney measures 9.2 x 4.4 x 3.9 cm. There is a normal cortex of the left kidney. The renal cortex measures 1.2 cm. There is no left renal mass or cyst. There are no left renal calculi. There is no left hydronephrosis. DISTAL LEFT URETER: There is non-visualization of the distal left ureter. There is no demonstrated left ureterovesical junction calculus. There is a visualized left ureteral jet. AORTA: There is no elongation or tortuosity of the abdominal aorta. I.V.C.: The IVC is patent. BLADDER: The bladder is sonographically normal Uterine fibroid measuring 1.5 cm US/Kidney and Bladder IMPRESSION: Sonographically normal kidneys Fibroid uterus Electronically Signed: Bear Pond MD at 13:11 EDT , Service support ,
== END | disposition home or self-care (01) ==
LOC: US 11:53
PROVIDERS: PCP Family Medicine Geriatric Medicine; Referring Provider Urology; Visit Provider Urology
DX: N39.0 Urinary tract infection, site not specified (principal)
CPT/HCPCS: 76770

== ENCOUNTER 2019-12-22 12:21 | Emergency (ER) | payer MEDICARE, OTHER, SELFPAY ==
[2019-04-11 10:50] VITALS: BMI 28.9
[2019-12-22] VITALS (9 sets, daily range): BP systolic 98–131; BP diastolic 44–95; PULSE 63–131; RESP 14–20; TEMP 36.7; O2SAT 96–100; BMI 26.6
--- NOTE | 2019-12-22 12:28 | EKG12_ITS ---
Test Reason : Blood Pressure : / mmHG Vent. Rate : 070 BPM Atrial Rate : 070 BPM P-R Int : 190 ms QRS Dur : 088 ms QT Int : 436 ms P-R-T Axes : 071 006 017 degrees QTc Int : 470 ms Normal sinus rhythm Normal ECG Confirmed by TRAMAINE CAMACHO, MICKEY ([id number]), design editor LAITH LE ([id number]) on 12/26/2019 2:00:32 PM Referred By: FEI Confirmed By:GHULAM REDD MD
--- NOTE | 2019-12-22 12:28 | RAD_ITS ---
STUDY: X-RAY CHEST REASON FOR EXAM: Female, 79 years old. PALPITATIONS, DIZZINESS, HX AFIB, STROKE TECHNIQUE: Single AP portable view of the chest. COMPARISON: Comparison is made with prior study 03/13/2019. FINDINGS: EKG electrodes are seen. Hyperinflation. The lungs are clear. There is no demonstrated pleural abnormality. There is borderline cardiomegaly. Normal mediastinum and arnold. Normal visualized pulmonary arteries. There is atherosclerotic tortuosity of the aortic arch and descending thoracic aorta. Normal visualized thoracic spine. Normal visualized ribs, clavicles, and shoulders. There is no demonstrated abnormality of the visualized soft tissue structures of the upper abdomen. RAD/Chest 1 View (Portable) IMPRESSION: Hyperinflation. The lungs are clear. Mild cardiomegaly. Electronically Signed: Andriy Ruiz, at 13:38 EDT , Service support ,
--- NOTE | 2019-12-22 12:51 | ED.VIS.GEN ---
History of Present Illness Chief Complaint: Palpitations Informant: Patient Narrative: Patient is a 79-year-old female who presents to the emergency department for palpitations, lightheadedness. She does have a history of atrial fibrillation/flutter. She saw her a p supervisor yesterday and was prescribed metoprolol. She is currently on sotalol as well. She states that since Thursday she has been having this sensation. It has been getting worse. She does get short of breath when walking short distances. She has not had any syncopal episodes. She has a slight chest tightness but denies chest pain. She denies any cough, cold, congestion. No fevers or chills. No radiation of symptoms. No abdominal pain or nausea/vomiting. No diaphoresis. She is on anticoagulation with warfarin. Her last INR was three 1 week ago. She denies any leg swelling or calf pain. She has had prior ablations before in the past. She denies any history of heart attacks. Past Medical History - Allergies and Home Meds Allergies/Adverse Reactions: Allergies No Known Allergies Allergy (Verified 12/22/19 12:23) Primary Care Physician: Yaya Brandt Chi, MD [Primary Care Provider] - 2 Days Prior records reviewed: Yes Past Medical History: - - Atrial fibrillation, TIA, hypertension Surgical History: - - Foot surgery. cardiac RFA. Gamma knife Smoking Status: Former smoker Alcohol: None Drugs: None - Family History Maternal Family History: Family History (Last Reviewed 03/21/19 @ 19:[address] Abelardo Arthur DO) Father CAD (coronary artery disease) Family History: Reports: Cancer - Breast cancer, Heart Disease Paternal Family History: Family History (Last Reviewed 03/21/19 @ 19:[address] Abelardo Arthur DO) Father CAD (coronary artery disease) Family History: Reports: No pertinent history Review of Systems All systems negative except as indicated General: Denies: Chills, Fever, Sweats Eyes: Denies: Visual changes - bilaterally, Diplopia ENT: Denies: Rhinorrhea, Sore throat Cardiovascular: Reports: Chest pain - Tightness, Palpitations Respiratory: Reports: Dyspnea, Dyspnea on exertion. Denies: Cough Gastrointestinal: Denies: Abdominal pain, Nausea, Vomiting, Diarrhea, Melena Genitourinary: Denies: Dysuria, Hematuria, Frequency Musculoskeletal: Denies: Back pain, Extremity Pain Skin: Denies: Rash, Wounds Neurological: Denies: Headache, Weakness, Numbness Physical Exam Vital Signs/Narrative: Vital Signs Temp Pulse Resp BP Pulse Ox 12/22/19 12:42 130 H 18 125/95 H 98 12/22/19 12:22 98.1 F 131 H 20 H 118/54 L 100 Inital Vital Signs reviewed: Yes General: Well nourished, Well developed, No Acute Distress Head: Normocephalic, Atraumatic Eyes: Perrl, EOMI ENT: Moist mucous membranes, No rhinorrhea Neck: Supple, Nontender Cardiovascular: No murmurs, Irregular, Tachycardia Respiratory: No distress, CTA bilaterally, Chest nontender Abdomen: Soft, Nontender, Nondistended Back: Nontender, Normal Inspection Extremities: Nontender, No edema. Negative for: Edema, Calf Tenderness Skin: Normal color, No rash Neurological: Alert, Oriented x3, Cranial nerves II-XII grossly intact, Normal Strength, Normal Sensation Psychological: Normal affect, Normal Mood Diagnostic/Tx/Re-eval - EKG Initial EKG Interpretation: - - Rate of 145 bpm in an irregularly irregular rhythm. Normal axis. No ST elevations or depressions appreciated. No T wave abnormalities. - Medical Decision Making Patient presents to the emergency department for palpitations. She is found to be in atrial fibrillation with RVR upon arrival. Blood pressure has been stable. She is symptomatic with this. Basic lab work obtained along with chest x-ray. Will give doses of metoprolol as she is on this at home. After 3 doses of 5 mg of metoprolol she was still having heart rates in the 110s. I did call and discuss case with the on-call a p supervisor. Since she has had therapeutic INRs over the past month he believes that it is safe to do a cardioversion. She has had this done in the emergency department before. Patient consented for this procedure and we did cardiovert the patient. She did convert to a sinus rhythm. The a p supervisor did recommend keeping her on the metoprolol and sotalol. Patient doing well post procedure and sedation. Will monitor in the emergency department for a while longer. Patient signed out due to end of shift. She has remained in normal sinus rhythm without any symptoms. She is to follow-up with her a p supervisor. Warning signs and symptoms for which to return to the emergency department including any repeat symptoms or develop any chest pain or shortness of breath are reviewed with her. She understands and is agreeable this plan. Procedures Procedure(s): Cardioversion: Patient consented for procedure. Risks, benefits were explained to family and patient. Timeout performed prior to procedure start. Patient sedated using propofol. Patiently initially given a dose of 30 mg and then a repeat dose of 15 g. Using synchronized cardioversion patient shocks using 100 J. Patient then converted into normal sinus rhythm with a rate of 80 bpm. Patient tolerated the procedure well without any apparent complications. ED Disposition - Plan for ED Patient: Disposition: Home or Assisted Living Diagnosis: Atrial fibrillation with RVR Instructions: Cardioversion, ED AFIB, ED Procedural Sedation, (Adult) Referrals: Yaya Brandt Chi, MD [Primary Care Provider] - 2 Days
[2019-12-22 12:53] LABS: Absolute Lymphocyte Count 1.27 X10^3/uL (0.83-4.51); Absolute Neutrophil Count 7.1 X10^3/uL (2.0-7.7); Basophil# 0.02 X10^3/uL; Basophil% 0.2 % (0-1); Eosinophil# 0.15 X10^3/uL; Eosinophils% 1.6 % (0-5); Hematocrit 40.1 % (37-47); Hemoglobin 12.8 g/dL (12.0-15.0); Lymphocyte # 1.27 X10^3/ul (4.0); Lymphocyte % 13.9 % (19-41); Mean Corp Hgb Conc 31.9 g/dL (32-36); Mean Corpuscular Hgb 28.3 pg (27.0-32.0); Mean Corpuscular Volume 88.7 fL (81-99); Mean Platelet Vol. 11.3 fl (6.2-12.0); Monocyte# 0.57 X10^3/uL; Monocyte% 6.2 % (0-10); NRBC Flagged by Analyzer 0 % (0-5); Neutrophil % 77.8 % (47-70); Platelet Count 211 K/mm3 (150-450); RBC Distribution Width CV 14.2 % (11.6-14.6); RBC Distribution Width SD 45.4 fl (35.1-43.9); Red Blood Count 4.52 M/mm3 (4.2-5.4); White Blood Count 9.1 K/mm3 (4.4-11.0)
[2019-12-22] MEDS: Metoprolol Tartrate 5 MG/5 ML Vial IV ×3 (12:53→13:08)
[2019-12-22 13:13] LABS: Anion Gap 3 (5-15); BUN 28 mg/dL (7-18); BUN/Creat Ratio 38.6 RATIO (10-20); Calcium,Total 8.9 mg/dL (8.5-10.1); Chloride 110 mmol/L (98-107); Creatinine, Serum 0.73 mg/dL (0.55-1.02); EST Glomerular Filtration Rate 83 mL/min (>60); Est Glom Filt Rate - Afr Amer 100 mL/min (>60); Glucose 120 mg/dL (74-106); Magnesium 2.3 mg/dL (1.6-2.6); Sodium Level 141 mmol/L (136-145)
[2019-12-22 13:17] LABS: International Normalized Ratio 2.8
[2019-12-22] MEDS: Propofol 200 MG/20 ML Vial 60 MG IV BOLUS (14:44)
--- NOTE | 2019-12-22 15:00 | EKG12_ITS ---
Test Reason : Blood Pressure : / mmHG Vent. Rate : 181 BPM Atrial Rate : 092 BPM P-R Int : 000 ms QRS Dur : 098 ms QT Int : 288 ms P-R-T Axes : 000 017 -83 degrees QTc Int : 500 ms Supraventricular tachycardia Marked ST abnormality, possible inferior subendocardial injury Abnormal ECG Confirmed by TRAMAINE CAMACHO, MICKEY ([id number]), scientific editor JADON HERNANDEZ ([id number] on 12/28/2019 8:37:29 AM Referred By: FEI Confirmed By:GHULAM REDD MD
== END 2019-12-22 16:42 | disposition home or self-care (01) ==
PROVIDERS: Emergency Provider Emergency Medicine; PCP Family Medicine Geriatric Medicine
DX: I48.91 Unspecified atrial fibrillation (principal); Z86.73 Personal history of transient ischemic attack (TIA), and cerebral infarction without residual deficits; I10 Essential (primary) hypertension; Z87.891 Personal history of nicotine dependence; Z79.01 Long term (current) use of 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s; Z79.899 Other long term (current) drug therapy
CPT/HCPCS: 71045; 80048; 83735; 84484; 85025; 85610; 92960; 93005; 96374; 99152; 99153; 99285; J7030

== ENCOUNTER 2019-12-24 10:09 | Emergency (ER) | payer MEDICARE, OTHER, SELFPAY ==
[2019-12-22 12:22] VITALS: BMI 26.6
[2019-12-24 10:09] VITALS: BP 102/75; PULSE 184; RESP 20; TEMP 36.6; O2SAT 99; BMI 26.4
--- NOTE | 2019-12-24 10:20 | EKG12_ITS ---
Test Reason : POST CARDIO Blood Pressure : / mmHG Vent. Rate : 064 BPM Atrial Rate : 064 BPM P-R Int : 178 ms QRS Dur : 092 ms QT Int : 466 ms P-R-T Axes : 082 013 025 degrees QTc Int : 480 ms Sinus rhythm with Premature atrial complexes Otherwise normal ECG Confirmed by COLBY CAMACHO, MILES ([id number]), primer expeditor and drier NIURKA FONTANEZ ([id number]) on 12/27/2019 8:55:44 AM Referred By: REYMUNDO Confirmed By:MILES BOWMAN MD
[2019-12-24 10:28] LABS: Absolute Lymphocyte Count 1.15 X10^3/uL (0.83-4.51); Absolute Neutrophil Count 5.3 X10^3/uL (2.0-7.7); Basophil# 0.03 X10^3/uL; Basophil% 0.4 % (0-1); Eosinophil# 0.16 X10^3/uL; Eosinophils% 2.3 % (0-5); Hematocrit 40.1 % (37-47); Hemoglobin 12.7 g/dL (12.0-15.0); Lymphocyte # 1.15 X10^3/ul (4.0); Lymphocyte % 16.2 % (19-41); Mean Corp Hgb Conc 31.7 g/dL (32-36); Mean Corpuscular Hgb 28.4 pg (27.0-32.0); Mean Corpuscular Volume 89.7 fL (81-99); Mean Platelet Vol. 11.3 fl (6.2-12.0); Monocyte# 0.46 X10^3/uL; Monocyte% 6.5 % (0-10); NRBC Flagged by Analyzer 0 % (0-5); Neutrophil # 5.28 X10^3/uL (2.7-7.7); Neutrophil % 74.5 % (47-70); Platelet Count 236 K/mm3 (150-450); RBC Distribution Width CV 14.1 % (11.6-14.6); RBC Distribution Width SD 45.5 fl (35.1-43.9); Red Blood Count 4.47 M/mm3 (4.2-5.4); White Blood Count 7.1 K/mm3 (4.4-11.0)
[2019-12-24] MEDS: Adenosine 6 MG/2 ML Syringe IV (10:28)
--- NOTE | 2019-12-24 10:31 | ED.VIS.GEN ---
History of Present Illness Chief Complaint: Palpitations Informant: Patient Onset: Hours - 5-6 Context: Sudden Onset - while sleeping Timing: Continuous Quality: racing heartbeat Location: chest Current Severity: Severe Maximum Severity: Severe Worsened by: nothing Relieved by: nothing Associated Symptoms: lightheadedness Narrative: Patient has a history of atrial fibrillation/a flutter, she had a cardioversion 2 days ago by her photoengraving proofer apprentice Dr. Leyva, suddenly this morning she felt like she went right back into the dysrhythmia that she had prior to the cardioversion. Same symptoms, lightheaded, malaise, racing heartbeat without chest pain or dyspnea. No syncope. She states that she ate breakfast about 2 hours ago, thinking and hoping that the dysrhythmia with self-resolved. She took her metoprolol this morning but has not taken her sotalol yet. She continues to take Coumadin, and has been on it for some time. No recent illnesses or any history of COVID-19 infection. 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 cardiac RFA. Gamma knife Smoking Status: Former smoker - Family History Maternal Family History: Family History (Last Reviewed 03/21/19 @ 19:[address] Abelardo Arthur DO) Father CAD (coronary artery disease) Family History: Reports: Cancer - Breast cancer, Heart Disease Paternal Family History: Family History (Last Reviewed 03/21/19 @ 19:[address] Abelardo Arthur DO) Father CAD (coronary artery disease) Family History: Reports: No pertinent history Review of Systems General: Reports: Malaise. Denies: Chills, Fever, Sweats Eyes: Denies: Visual changes - bilaterally, Diplopia ENT: Denies: Rhinorrhea, Sore throat Cardiovascular: Reports: Palpitations, Heart racing. Denies: Chest pain Respiratory: Denies: Dyspnea, Cough, Dyspnea on exertion Gastrointestinal: Denies: Abdominal pain, Nausea, Vomiting, Diarrhea, Melena, Hematochezia Genitourinary: Denies: Dysuria, Hematuria, Frequency Musculoskeletal: Reports: Swelling - Chronic both feet/legs. Denies: Back pain, Extremity Pain Skin: Denies: Rash, Wounds Neurological: Denies: Headache, Weakness, Numbness Physical Exam Vital Signs/Narrative: Vital Signs Temp Pulse Resp BP Pulse Ox 12/24/19 10:09 97.8 F 184 H 20 H 102/75 99 Inital Vital Signs reviewed: Yes General: Well nourished, Well developed, No Acute Distress Head: Normocephalic, Atraumatic Eyes: Perrl, EOMI ENT: Moist mucous membranes, No rhinorrhea Neck: Supple, Nontender, No JVD Cardiovascular: Regular rate, Regular rhythm, Tachycardia Respiratory: No distress, CTA bilaterally, Chest nontender Abdomen: Soft, Nontender, Nondistended, Normal bowel sounds Back: Nontender, Normal Inspection Extremities: Nontender, Edema - 1+ bilateral lower extremity to mid pool, symmetric. Negative for: Calf Tenderness Skin: Normal color, No rash, No Trauma Neurological: Alert, Oriented x3, Cranial nerves II-XII grossly intact, Normal Strength, Normal Sensation Psychological: Normal affect, Normal Mood Diagnostic/Tx/Re-eval Laboratory Tests 12/24/19 12/24/19 12/24/19 Range/Units 10:22 10:22 10:22 WBC 7.1 (4.4-11.0) K/mm3 RBC 4.47 (4.2-5.4) M/mm3 Hgb 12.7 (12.0-15.0) g/dL Hct 40.1 (37-47) % MCV 89.7 (81-99) fL MCH 28.4 (27.0-32.0) pg MCHC 31.7 L (32-36) g/dL RDW Std Deviation 45.5 H (35.1-43.9) fl RDW Coeff of Jacque 14.1 (11.6-14.6) % Plt Count 236 (150-450) K/mm3 MPV 11.3 (6.2-12.0) fl Immature Gran % (Auto) 0.100 (0.0-0.9) % Neut % (Auto) 74.5 H (47-70) % Lymph % (Auto) 16.2 L (19-41) % [place] % (Auto) 6.5 (0-10) % Eos % (Auto) 2.3 (0-5) % Baso % (Auto) 0.4 (0-1) % Absolute Neuts (auto) 5.3 (2.0-7.7) X10^3/uL Absolute Lymphs (auto) 1.15 (0.83-4.51) X10^3/uL Nucleated RBC % 0 (0-5) % PT 31.6 H (11.7-14.9) SECONDS INR 3.1 Sodium 140 (136-145) mmol/L Potassium 4.5 (3.5-5.1) mmol/L Chloride 110 H (98-107) mmol/L Carbon Dioxide 27.0 (21.0-32.0) mmol/L Anion Gap 3 L (5-15) BUN 22 H (7-18) mg/dL Creatinine 0.86 (0.55-1.02) mg/dL Estim Creat Clear Calc 51.28 ml/min Est GFR (MDRD) Af Amer 82 (>60) mL/min Est GFR (MDRD) Non-Af 68 (>60) mL/min BUN/Creatinine Ratio 25.5 H (10-20) RATIO Glucose 115 H (74-106) mg/dL Calcium 8.9 (8.5-10.1) mg/dL Troponin I < 0.015 (<0.045) ng/mL - Rhythm Strip Rhythm Strip: Atrial flutter Rate: 180 Ectopy: None - EKG Initial EKG Interpretation: No Acute Injury Pattern, Atrial Flutter - With RVR, Non-Specific ST Changes Follow-up EKG Interpretation: Sinus Rhythm - With rate 70, No Acute Injury Pattern - Normal EKG Prior: Changed - Medical Decision Making Since patient just recently ate, there are risks to procedural sedation for cardioversion. Therefore instead initially, modified vagal maneuver was performed after placing an IV. This slowed her down for a second or 2, but did not break the rhythm. We then gave her adenosine 6 mg, this slowed her down for longer, to a rate of about 110, however she went right back into a rate of 180. She did appear to have P waves when the rate slowed down, which are impossible to see when her rate is 180, therefore I suspect this was rapid a flutter, although transient cardioversion is possible and this is rapid A. fib or a different version of SVT. Cardizem 10 mg was ordered after speaking with Dr. Borja, however her pressure was 80 systolic so we held off and bolus her with some fluids instead. Prior to being able to give her the Cardizem, she converted to a normal sinus rhythm and felt better. Repeat EKG is above, it is normal with a sinus rhythm at 70. She was observed for another hour or so. We ambulated her throughout the department, she had no recurrence of dysrhythmia or symptoms. I am comfortable letting her go home which she prefers to do. Advised to follow-up with her photoengraving proofer apprentice after the weekend, or return for symptoms that recur and/or do not resolve on their own. She is comfortable with that plan. She will go home and take her sotalol as well as her other prescriptions as scheduled. ED Disposition - Plan for ED Patient: Disposition: Home or Assisted Living Diagnosis: SVT (supraventricular tachycardia) Instructions: ED Dysrhythmia Unspecified Referrals: Yaya Brandt Chi, MD [Primary Care Provider] - Sergio Leyva MD [STAFF PHYSICIAN] - 3-5 Days
--- NOTE | 2019-12-24 10:34 | ED.RN ---
1025- Vagal maneuvers attempted without change in HR. 1028- 6 mg adenosine given rapid IVP with Dr. Johnson at bedside. HR remains 170-180 BPM.
[2019-12-24 10:43] LABS: International Normalized Ratio 3.1; Prothrombin Time (Protime)PT. 31.6 SECONDS (11.7-14.9)
[2019-12-24 10:45] LABS: Anion Gap 3 (5-15); BUN 22 mg/dL (7-18); BUN/Creat Ratio 25.5 RATIO (10-20); Calcium,Total 8.9 mg/dL (8.5-10.1); Chloride 110 mmol/L (98-107); Creatinine, Serum 0.86 mg/dL (0.55-1.02); EST Glomerular Filtration Rate 68 mL/min (>60); Est Glom Filt Rate - Afr Amer 82 mL/min (>60); Estimated Creatinine Clearance 51.28 ml/min; Glucose 115 mg/dL (74-106); Potassium 4.5 mmol/L (3.5-5.1); Sodium Level 140 mmol/L (136-145)
[2019-12-24] MEDS: 0.9% Normal Saline 1,000 ML 150 ML IV (10:45)
--- NOTE | 2019-12-24 10:50 | EKG12_ITS ---
Test Reason : PALPS Blood Pressure : / mmHG Vent. Rate : 145 BPM Atrial Rate : 187 BPM P-R Int : 000 ms QRS Dur : 088 ms QT Int : 330 ms P-R-T Axes : 000 004 -20 degrees QTc Int : 512 ms Atrial flutter with variable A-V block Nonspecific ST abnormality Abnormal ECG Confirmed by COLBY CAMACHO, MILES ([id number]), video tape editor NIURKA FONTANEZ ([id number]) on 12/27/2019 8:56:00 AM Referred By: REYMUNDO Confirmed By:MILES BOWMAN MD
[2019-12-24 11:47] VITALS: BP 116/65; PULSE 64; RESP 13; O2SAT 97
[2019-12-24 12:31] VITALS: BP 138/87; PULSE 63; RESP 14; O2SAT 97
== END 2019-12-24 12:33 | disposition home or self-care (01) ==
PROVIDERS: Emergency Provider Emergency Medicine; PCP Family Medicine Geriatric Medicine
DX: I47.1 Supraventricular tachycardia (principal); I48.0 Paroxysmal atrial fibrillation; I10 Essential (primary) hypertension; E78.5 Hyperlipidemia, unspecified; Z79.01 Long term (current) use of 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s; Z87.891 Personal history of nicotine dependence
CPT/HCPCS: 80048; 84484; 85025; 85610; 93005; 96361; 96374; 99283; A4216; J0153

== ENCOUNTER 2020-01-10 09:40 | Outpatient (RCR) | payer MEDICARE, OTHER, SELFPAY ==
[2019-12-22 12:22] VITALS: BMI 26.6
[2019-12-27 10:23] VITALS: BMI 26.3
[2020-01-10 16:51] LABS: International Normalized Ratio 2.5; Prothrombin Time (Protime)PT. 26.5 SECONDS (11.7-14.9)
== END 2020-01-23 18:00 | disposition home or self-care (01) ==
LOC: LAB 09:40
PROVIDERS: Family Provider Family Medicine Geriatric Medicine; PCP Family Medicine Geriatric Medicine; Referring Provider Internal Medicine Cardiovascular Disease; Visit Provider Internal Medicine Cardiovascular Disease
DX: I48.0 Paroxysmal atrial fibrillation (principal); I48.92 Unspecified atrial flutter; Z79.01 Long term (current) use of 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s
CPT/HCPCS: 36415; 85610

== ENCOUNTER 2020-02-06 09:35 | Outpatient (RCR) | payer MEDICARE, OTHER, SELFPAY ==
[2019-12-27 10:23] VITALS: BMI 26.3
[2020-01-26 11:33] VITALS: BMI 26.2
[2020-02-06 10:43] LABS: International Normalized Ratio 2.2; Prothrombin Time (Protime)PT. 24.3 SECONDS (11.7-14.9)
== END 2020-02-06 18:00 | disposition home or self-care (01) ==
LOC: LAB 09:35
PROVIDERS: Family Provider Family Medicine Geriatric Medicine; PCP Family Medicine Geriatric Medicine; Referring Provider Internal Medicine Cardiovascular Disease; Visit Provider Internal Medicine Cardiovascular Disease
DX: I48.0 Paroxysmal atrial fibrillation (principal); I48.92 Unspecified atrial flutter; Z79.01 Long term (current) use of 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s
CPT/HCPCS: 36415; 85610

== ENCOUNTER 2020-03-20 10:19 | Outpatient (RCR) | payer MEDICARE, OTHER, SELFPAY ==
[2020-01-26 11:33] VITALS: BMI 26.2
[2020-03-06 10:12] LABS: International Normalized Ratio 1.8; Prothrombin Time (Protime)PT. 20.5 SECONDS (11.7-14.9)
[2020-03-20 11:06] LABS: Prothrombin Time (Protime)PT. 22.4 SECONDS (11.7-14.9)
== END 2020-03-20 18:00 | disposition home or self-care (01) ==
LOC: LAB 10:19
PROVIDERS: Family Provider Family Medicine Geriatric Medicine; PCP Family Medicine Geriatric Medicine; Referring Provider Internal Medicine Cardiovascular Disease; Visit Provider Internal Medicine Cardiovascular Disease
DX: I48.0 Paroxysmal atrial fibrillation (principal); I48.92 Unspecified atrial flutter; Z79.01 Long term (current) use of 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s
CPT/HCPCS: 36415; 85610

== ENCOUNTER → 2020-04-16 09:23 | Outpatient (CLI) | payer MEDICARE, OTHER, SELFPAY ==
[2020-01-26 11:33] VITALS: BMI 26.2
[2020-04-16 12:53] LABS: Absolute Lymphocyte Count 1.15 X10^3/uL (0.83-4.51); Absolute Neutrophil Count 4.7 X10^3/uL (2.0-7.7); Basophil# 0.02 X10^3/uL; Basophil% 0.3 % (0-1); Eosinophil# 0.22 X10^3/uL; Eosinophils% 3.3 % (0-5); Hematocrit 42.4 % (37-47); Hemoglobin 13.1 g/dL (12.0-15.0); Lymphocyte # 1.15 X10^3/ul (4.0); Lymphocyte % 17.2 % (19-41); Mean Corp Hgb Conc 30.9 g/dL (32-36); Mean Corpuscular Hgb 28.7 pg (27.0-32.0); Mean Platelet Vol. 11.1 fl (6.2-12.0); Monocyte# 0.54 X10^3/uL; Monocyte% 8.1 % (0-10); NRBC Flagged by Analyzer 0 % (0-5); Neutrophil # 4.72 X10^3/uL (2.7-7.7); Neutrophil % 70.8 % (47-70); Platelet Count 249 K/mm3 (150-450); RBC Distribution Width CV 16.6 % (11.6-14.6); RBC Distribution Width SD 55.9 fl (35.1-43.9); Red Blood Count 4.56 M/mm3 (4.2-5.4); White Blood Count 6.7 K/mm3 (4.4-11.0)
[2020-04-16 13:24] LABS: Vitamin D,25 Hydroxy 66.5 ng/mL
[2020-04-16 13:48] LABS: ALB/GLOB Ratio 0.8 RATIO (0.9-2.4); AST(SGOT) 20 U/L (15-37); Alanine Aminotransfer ALT/SGPT 39 U/L (13-56); Albumin, Serum 3.4 g/dL (3.2-5.0); Alkaline Phosphatase 115 U/L (45-117); Anion Gap 4 (5-15); BUN 24 mg/dL (7-18); BUN/Creat Ratio 26.8 RATIO (10-20); Calcium,Total 8.5 mg/dL (8.5-10.1); Chloride 108 mmol/L (98-107); EST Glomerular Filtration Rate 65 mL/min (>60); Est Glom Filt Rate - Afr Amer 78 mL/min (>60); Globulin 4.3 g/dL (2.2-4.2); Glucose 58 mg/dL (74-106); Potassium 4.1 mmol/L (3.5-5.1); Protein, Total 7.7 g/dL (6.4-8.2); Sodium Level 141 mmol/L (136-145); Thyroid Stim Hormone (TSH) 5.65 uIU/mL (0.358-3.74)
== END ==
PROVIDERS: PCP Family Medicine Geriatric Medicine; Visit Provider Family Medicine Geriatric Medicine
DX: I10 Essential (primary) hypertension (principal); E55.9 Vitamin D deficiency, unspecified
CPT/HCPCS: 36415; 80053; 82306; 84443; 85025

== ENCOUNTER 2020-04-17 09:10 | Outpatient (RCR) | payer MEDICARE, OTHER, SELFPAY ==
[2020-01-26 11:33] VITALS: BMI 26.2
[2020-04-17 09:48] LABS: Prothrombin Time (Protime)PT. 22.1 SECONDS (11.7-14.9)
== END 2020-04-17 18:00 | disposition home or self-care (01) ==
LOC: LAB 09:10
PROVIDERS: Family Provider Family Medicine Geriatric Medicine; PCP Family Medicine Geriatric Medicine; Referring Provider Internal Medicine Cardiovascular Disease; Visit Provider Internal Medicine Cardiovascular Disease
DX: I48.0 Paroxysmal atrial fibrillation (principal); I48.92 Unspecified atrial flutter; Z79.01 Long term (current) use of 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s
CPT/HCPCS: 36415; 85610

== ENCOUNTER 2020-05-01 22:29 | Emergency (ER) | payer MEDICARE, OTHER, SELFPAY ==
[2020-01-26 11:33] VITALS: BMI 26.2
[2020-05-01 22:30] VITALS: BP 137/98; PULSE 144; RESP 16; TEMP 35.4; O2SAT 99; BMI 26.6
--- NOTE | 2020-05-01 23:00 | EKG12_ITS ---
Test Reason : DYSRHYTHMIA Blood Pressure : / mmHG Vent. Rate : 143 BPM Atrial Rate : 143 BPM P-R Int : 120 ms QRS Dur : 092 ms QT Int : 320 ms P-R-T Axes : 102 004 025 degrees QTc Int : 493 ms Sinus tachycardia Nonspecific ST abnormality Abnormal ECG Confirmed by COLBY CAMACHO, MILES ([id number]), health editor NIURKA FONTANEZ ([id number]) on 05/04/2020 2:00:19 PM Referred By: ROXANA Confirmed By:MILES BOWMAN MD
--- NOTE | 2020-05-01 23:01 | ED.VIS.GEN ---
History of Present Illness Chief Complaint: Palpitations Informant: Patient Onset: Today Narrative: Stated she has a history of atrial flutter and atrial fibrillation and went into an abnormal rhythm with fluttering that started approximately 4 hours ago. It came on suddenly. She denies any other symptoms. No shortness of breath. She has had this multiple times in the past. She has had 2 ablations with the last one being in 2019. She was seen in our emergency department and underwent a cardioversion just the summer alone. She has been on beta-blockers in the past and is on sotalol currently. She has been on that twice a day for the last 2 years. She is not on metoprolol anymore. She sees Dr. Leyva. She is on Coumadin. No history of heart attack in the past. History of remote stroke. 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 (9) Non-rheumatic mitral regurgitation Status: Chronic (10) Open wound of left lower extremity with complication Status: Chronic (11) Paroxysmal atrial fibrillation Status: Chronic Comment: EPS/RFA on 01/15/2017 and 12/27/2018; DCCV on 11/23/2018; DCCV in ER 12/22/2019; (12) 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 Status: Chronic (13) Ulcer of left lower extremity with fat layer exposed Status: Chronic Past Medical History - Allergies and Home Meds Allergies/Adverse Reactions: Allergies No Known Allergies Allergy (Verified 05/01/20 22:33) Primary Care Physician: Sergio Leyva MD [STAFF PHYSICIAN] - Prior records reviewed: Yes Past Medical History: - - See problem list Surgical History: - - Foot surgery. cardiac RFA. Gamma knife Lives: With Family Smoking Status: Never smoker Alcohol: None Drugs: None - Family History Maternal Family History: Family History (Last Reviewed 01/26/20 @ 11:38 by Maria E Montoya) Father CAD (coronary artery disease) Family History: Reports: Cancer - Breast cancer, Heart Disease Paternal Family History: Family History (Last Reviewed 01/26/20 @ 11:38 by Maria E Montoya) Father CAD (coronary artery disease) Family History: Reports: No pertinent history Review of Systems General: Denies: Chills, Fever, Sweats Eyes: Denies: Visual changes - bilaterally, Diplopia ENT: Denies: Rhinorrhea, Sore throat Cardiovascular: Reports: Palpitations, Heart racing. Denies: Chest pain Respiratory: Denies: Dyspnea, Cough, Dyspnea on exertion Gastrointestinal: Denies: Abdominal pain, Nausea, Vomiting, Diarrhea, Melena, Hematochezia Genitourinary: Denies: Dysuria, Hematuria, Frequency Musculoskeletal: Denies: Back pain, Extremity Pain Skin: Denies: Rash, Wounds Neurological: Denies: Headache, Weakness, Numbness Physical Exam Vital Signs/Narrative: Vital Signs Temp Pulse Resp BP Pulse Ox 05/01/20 22:30 95.8 F L 144 H 16 137/98 H 99 General: Well nourished, Well developed, No Acute Distress Head: Normocephalic, Atraumatic Eyes: Perrl, EOMI ENT: Moist mucous membranes, No rhinorrhea Neck: Supple, Nontender Cardiovascular: No murmurs, Tachycardia Respiratory: No distress, CTA bilaterally, Chest nontender Abdomen: Soft, Nontender, Nondistended, Normal bowel sounds Back: Nontender, Normal Inspection Extremities: Nontender, No edema Skin: Normal color, No rash Neurological: Alert, Oriented x3, Cranial nerves II-XII grossly intact, Normal Strength, Normal Sensation Psychological: Normal affect, Normal Mood Diagnostic/Tx/Re-eval - Medical Decision Making EKG shows suspected atrial flutter rate of 143. No acute STEMI. Lab work obtained. Patient given a dose of Cardizem to slow her rate. Cardizem work to bring her heart rate down the 90s. It did come back up and was given a second dose of Cardizem which brought her heart rate down to 100 and stayed sustained. She is in atrial fibrillation on repeat EKG with no acute ischemia. Troponin negative. CBC shows a mild chronic elevated BUN. CBC unremarkable. INR slightly subtherapeutic at 1.7. She forgot her Coumadin 2 days ago per patient. I discussed the case with Dr. Leyva. The patient was on metoprolol earlier this summer with good rate control. He recommends putting her back on metoprolol. The patient will be prescribed 12.5 twice daily if she stated 25 mg twice daily makes her lightheaded. She was monitored in the emergency department. She does not want to be admitted. Feel this is reasonable. I did offer her admission but she would like to try to go home and follow-up. This is a chronic issue for the patient. She is asymptomatic. Patient did go back into A. fib with RVR with a heart rate in the 140s. When this happened again her blood pressure dropped to 60 systolic. The patient was lightheaded at this time. Given the fact that she had unstable atrial tachycardia I discussed cardioversion with the patient. She understand the benefits and risk of this and asked us to proceed. Patient was placed on the monitor and given 40 mg of propofol with adequate sedation. She was cardioverted in synchronized fashion with 150 J with successful cardioversion back to normal sinus rhythm. Blood pressure came back to normal. During sedation patient did require 1 minute of help with her breaths with a [id number] as she was sedated. Awoke without complication afterwards. Patient was monitored throughout the evening. Remained in normal sinus rhythm. We will follow-up as an outpatient ED Disposition - Plan for ED Patient: Disposition: Home or Assisted Living Diagnosis: Atrial fibrillation with rapid ventricular response, Atrial fibrillation status post cardioversion Instructions: What Is Atrial Flutter/Atrial Fibrillation? Prescriptions: Metoprolol Tartrate 12.5 mg PO BID #30 tab Transmission Status: Received by [id number] Referrals: Sergio Leyva MD [STAFF PHYSICIAN] -
[2020-05-01] MEDS: dilTIAZem 25 MG/5 ML Vial 10 MG IV BOLUS ×2 (23:05→23:52)
[2020-05-01 23:10] LABS: Absolute Lymphocyte Count 1.77 X10^3/uL (0.83-4.51); Absolute Neutrophil Count 6.5 X10^3/uL (2.0-7.7); Basophil# 0.04 X10^3/uL; Basophil% 0.4 % (0-1); Eosinophil# 0.28 X10^3/uL; Hematocrit 41.2 % (37-47); Hemoglobin 13.6 g/dL (12.0-15.0); Lymphocyte # 1.77 X10^3/ul (4.0); Lymphocyte % 19.2 % (19-41); Mean Corpuscular Hgb 29.6 pg (27.0-32.0); Mean Corpuscular Volume 89.6 fL (81-99); Mean Platelet Vol. 10.9 fl (6.2-12.0); Monocyte# 0.64 X10^3/uL; Monocyte% 6.9 % (0-10); NRBC Flagged by Analyzer 0 % (0-5); Neutrophil # 6.45 X10^3/uL (2.7-7.7); Neutrophil % 70.2 % (47-70); Platelet Count 242 K/mm3 (150-450); RBC Distribution Width CV 15.8 % (11.6-14.6); RBC Distribution Width SD 51.9 fl (35.1-43.9); White Blood Count 9.2 K/mm3 (4.4-11.0)
--- NOTE | 2020-05-01 23:10 | RAD_ITS ---
STUDY: X-RAY CHEST REASON FOR EXAM: Female, 79 years old. Palpitations. TECHNIQUE: AP portable chest. COMPARISON: December 22, 2019. FINDINGS: The lungs are clear and expanded. There is no demonstrated pleural abnormality. Normal size heart. Normal mediastinum and arnold. Normal visualized pulmonary arteries. Normal visualized aortic arch and descending thoracic aorta. Normal visualized thoracic spine. Normal visualized ribs, clavicles, and shoulders. There is no demonstrated abnormality of the visualized soft tissue structures of the upper abdomen. RAD/Chest 1 View (Portable) IMPRESSION: No acute cardiopulmonary disease. Electronically Signed: Bahman Seay MD at 23:23 EST , Service support ,
[2020-05-01 23:15] LABS: International Normalized Ratio 1.7; Prothrombin Time (Protime)PT. 19.6 SECONDS (11.7-14.9)
[2020-05-01 23:24] LABS: Anion Gap 7 (5-15); BUN 28 mg/dL (7-18); BUN/Creat Ratio 31.7 RATIO (10-20); Calcium,Total 8.9 mg/dL (8.5-10.1); Chloride 105 mmol/L (98-107); Creatinine, Serum 0.88 mg/dL (0.55-1.02); EST Glomerular Filtration Rate 66 mL/min (>60); Est Glom Filt Rate - Afr Amer 80 mL/min (>60); Estimated Creatinine Clearance 50.12 ml/min; Glucose 121 mg/dL (74-106); Potassium 4.5 mmol/L (3.5-5.1); Sodium Level 140 mmol/L (136-145)
[2020-05-01 23:45] VITALS: BP 90/61; PULSE 145; RESP 18
[2020-05-02] VITALS (13 sets, daily range): BP systolic 53–112; BP diastolic 28–73; PULSE 62–145; RESP 8–20; O2SAT 86–99
--- NOTE | 2020-05-02 00:07 | EKG12_ITS ---
Test Reason : RHYTHM CONVERSION Blood Pressure : / mmHG Vent. Rate : 103 BPM Atrial Rate : 138 BPM P-R Int : 000 ms QRS Dur : 090 ms QT Int : 392 ms P-R-T Axes : 000 002 000 degrees QTc Int : 513 ms Atrial fibrillation with rapid ventricular response Abnormal ECG Confirmed by COLBY CAMACHO, MILES ([id number]), newspaper or periodical editor NIURKA FONTANEZ ([id number]) on 05/04/2020 2:00:38 PM Referred By: ROXANA Confirmed By:MILES BOWMAN MD
[2020-05-02] MEDS: Metoprolol Tartrate 25 MG Tablet 12.5 MG PO (01:39)
[2020-05-02] MEDS: Propofol 200 MG/20 ML Vial IV BOLUS (02:34)
--- NOTE | 2020-05-02 02:37 | ED.RN ---
Pt tolerated procedure well. Spo2 decreased to 80's and patient required minimal respiratory assistance with BVM for approx 1-2 mins.
== END 2020-05-02 06:54 | disposition home or self-care (01) ==
PROVIDERS: Emergency Provider Emergency Medicine; PCP Family Medicine Geriatric Medicine
DX: I48.0 Paroxysmal atrial fibrillation (principal); I10 Essential (primary) hypertension; E78.5 Hyperlipidemia, unspecified; Z79.01 Long term (current) use of 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s; Z86.73 Personal history of transient ischemic attack (TIA), and cerebral infarction without residual deficits; Z79.899 Other long term (current) drug therapy
CPT/HCPCS: 71045; 80048; 84484; 85025; 85610; 92960; 93005; 96374; 96375; 96376; 99284; J7030; A4216

== ENCOUNTER 2020-05-15 09:43 | Outpatient (RCR) | payer MEDICARE, OTHER, SELFPAY ==
[2020-01-26 11:33] VITALS: BMI 26.2
[2020-05-11 10:38] VITALS: BMI 27.2
[2020-05-15 11:33] LABS: International Normalized Ratio 1.9
== END 2020-05-15 18:00 | disposition home or self-care (01) ==
LOC: LAB 09:43
PROVIDERS: Family Provider Family Medicine Geriatric Medicine; PCP Family Medicine Geriatric Medicine; Referring Provider Internal Medicine Cardiovascular Disease; Visit Provider Internal Medicine Cardiovascular Disease
DX: I48.0 Paroxysmal atrial fibrillation (principal); I48.92 Unspecified atrial flutter; Z79.01 Long term (current) use of 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s
CPT/HCPCS: 36415; 85610

== ENCOUNTER 2020-05-29 09:56 | Outpatient (RCR) | payer MEDICARE, OTHER, SELFPAY ==
[2020-05-11 10:38] VITALS: BMI 27.2
[2020-05-29 10:23] LABS: International Normalized Ratio 2.2; Prothrombin Time (Protime)PT. 23.5 SECONDS (11.7-14.9)
== END 2020-05-29 18:00 | disposition home or self-care (01) ==
LOC: LAB 09:56
PROVIDERS: Family Provider Family Medicine Geriatric Medicine; PCP Family Medicine Geriatric Medicine; Referring Provider Internal Medicine Cardiovascular Disease; Visit Provider Internal Medicine Cardiovascular Disease
DX: I48.0 Paroxysmal atrial fibrillation (principal); I48.92 Unspecified atrial flutter; Z79.01 Long term (current) use of 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s
CPT/HCPCS: 36415; 85610

== ENCOUNTER → 2020-06-01 | Outpatient (CLI) | payer MEDICARE, OTHER, SELFPAY ==
[2020-05-11 10:38] VITALS: BMI 27.2
--- NOTE | 2020-06-04 | LES_PTH ---
PATIENT: PORTILLO NGUYEN [facility] U#:[id number] AGE/SX: 80/F ROOM: RE06/01/[address]: Dr. Chad Sawyer MD : [id number] BED: DIS: 06/01/2020 SPEC #: [id number] RECD: 06/04/20 12:12 STATUS: SYL REBala #: [id number] JANICE: 06/04/20 00:[address]: Chad Sawyer DEPT: SURGICAL PATHOLOGY RECD BY: Payam Haile ENTERED: 06/04/20 12:13 SP TYPE: Lesion OTHR DR: Dr. Yaya Brandt MD Tissues: Skin of eyelid, NOS Procedures: Surgery Specimen Level IV HEADER OPERATION: Incisional biopsy right lower eyelid PRE-OP DIAGNOSIS: High suspicion basal cell CA TISSUE SUBMITTED: Right lower eyelid biopsy MICROSCOPIC DIAGNOSIS Skin lesion of right lower eyelid, biopsy: Fragments of basal cell carcinoma. AM:teena 06/05/2020 MICROSCOPIC DESCRIPTION Slides are reviewed. GROSS DESCRIPTION Received in fixative is one container labeled with the patient's name and designated RLL. The specimen consists of two pieces of kenyon-white skin that in aggregate measure 0.8 x 0.2 x 0.1 cm. The specimen is totally submitted in one cassette. / SJ:teena 06/04/20 TC:0 CPT: 02721
== END | disposition home or self-care (01) ==
LOC: LABSPEC 06-04 10:00
PROVIDERS: PCP Family Medicine Geriatric Medicine; Referring Provider Ophthalmology; Visit Provider Ophthalmology
DX: C44.1122 Basal cell carcinoma of skin of right lower eyelid, including canthus (principal)
CPT/HCPCS: 88305

== ENCOUNTER 2020-06-14 12:22 | Emergency (ER) | payer MEDICARE, OTHER, SELFPAY ==
[2020-05-11 10:38] VITALS: BMI 27.2
[2020-06-14 12:23] VITALS: BP 140/88; PULSE 68; RESP 17; TEMP 36.1; O2SAT 97; BMI 27.1
--- NOTE | 2020-06-14 13:14 | ED.VISSUMM ---
- ER Visit Summary Date of Service: 06/14/20 Chief Complaint: Right lower leg laceration History of Present Illness: The patient is a 80 F of A. fib on Coumadin. She was closing a car door around 11 AM today struck her right lower leg causing about a 6 to 7 inch laceration. No other injury she is able to ambulate. Last tetanus shot about 4 years ago. Denies any other complaints. She is on Coumadin her last level was 2 weeks ago and was 2.5. Physical Examination: Older female no acute distress vital signs stable afebrile. HEENT exam unremarkable. Neck nontender no lymphadenopathy. Lungs clear to auscultation. Heart regular rate about 70. Chest were nontender. Abdomen soft nontender. Patient moving all 4 extremities. Neurovascularly intact. Normal strength and sensation. The right lower lateral anterior lateral calf has about a 6cm irregularly-shaped laceration. Involves the skin and subcu tissue. There is mild oozing of blood. There is no bony tenderness or bony deformity. Distal to the wound the foot is neurovascular intact with dorsi and plantar flexion touch sensation. Normal strength. There does not appear to be a foreign body and is not a dirty wound. Neurologically she is awake alert with no focal motor deficits. Test Results: None Emergency Department Course and Treatment: Older female with up-to-date tetanus has a right lower leg laceration of 6 to 7 inches or 15 to 17 cm. Procedure note: Right lower leg 67 inch laceration. Locally anesthetized using plain lidocaine. Washed with Shur-Clens and then washed with normal saline and explored. Closed using 15 simple interrupted 4-0 Ethilon sutures. Proper hemostasis wound closure obtained. Patient tolerated procedure well. There was no arterial bleeding. She was warned of bruising and swelling. Wound care and suture removal in 14 days. Treatment Plan: Wound care. Suture removal in 14 days. Return if any signs of infection, substantial bleeding or swelling. Disposition: Discharge Impression: Right lower leg laceration of 6 to 7 inches (15 to 17 cm) repaired by ER physician This note was generated with [employer] dictation software. It may contain incorrect words, spelling, and punctuation that were not noted in review of the chart prior to signing ED Disposition - Plan for ED Patient: Referrals: Yaya Brandt Chi, MD [Primary Care Provider] -
--- NOTE | 2020-06-14 13:17 | ED.DEP ---
ED Disposition - Plan for ED Patient: Disposition: Home or Assisted Living Instructions: ED Laceration: All Closures Referrals: Yaya Brandt Chi, MD [Primary Care Provider] - 10-14 Days suture removal Additional Instructions: Ice and elevate the right lower leg to decrease the pain and swelling. Do it 3 times a day for the next 2 days. Keep the wound clean and dry. Clean with soap and water or peroxide and water. Dry thoroughly. Apply antibiotic ointment daily. Change dressing daily. This is a large laceration is can take a long time to heal do not have the stitches removed until 14 days which is 2 weeks from today. Any signs of redness, fever or pus or substantial swelling return to have it reevaluated.
[2020-06-14] MEDS: Lidocaine 1% (20 ml mdv) 20 ML Vial INFILT (13:41)
[2020-06-14] MEDS: BACITRACIN 15 GM Tube 1 APPLIC TOPICAL (13:41)
== END 2020-06-14 13:44 | disposition home or self-care (01) ==
PROVIDERS: Emergency Provider Emergency Medicine; PCP Family Medicine Geriatric Medicine
DX: S81.811A Laceration without foreign body, right lower leg, initial encounter (principal); I48.91 Unspecified atrial fibrillation; I10 Essential (primary) hypertension; Z86.718 Personal history of other venous thrombosis and embolism; Z79.01 Long term (current) use of 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s; Z79.899 Other long term (current) drug therapy; W26.8XXA Contact with other sharp object(s), not elsewhere classified, initial encounter; Y93.89 Activity, other specified; Y92.89 Other specified places as the place of occurrence of the external cause; Y99.8 Other external cause status
CPT/HCPCS: 12005; 99284

== ENCOUNTER 2020-06-26 10:33 | Outpatient (RCR) | payer MEDICARE, OTHER, SELFPAY ==
[2020-06-26 11:42] LABS: International Normalized Ratio 2.8; Prothrombin Time (Protime)PT. 28.8 SECONDS (11.7-14.9)
== END 2020-06-26 18:00 | disposition home or self-care (01) ==
LOC: LAB 10:33
PROVIDERS: Family Provider Family Medicine Geriatric Medicine; PCP Family Medicine Geriatric Medicine; Referring Provider Internal Medicine Cardiovascular Disease; Visit Provider Internal Medicine Cardiovascular Disease
DX: I48.0 Paroxysmal atrial fibrillation (principal); I48.92 Unspecified atrial flutter; Z79.01 Long term (current) use of 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s
CPT/HCPCS: 36415; 85610

== ENCOUNTER 2020-07-18 11:30 | Outpatient (RCR) | payer MEDICARE, OTHER, SELFPAY ==
[2020-07-04 08:13] VITALS: BP 146/89; PULSE 70; TEMP 35.9; BMI 27.1
--- NOTE | 2020-07-04 08:46 | HP.PCM_ITS ---
(1) Dehiscence of wound of skin Status: Acute Code(s): T81.30XA - Disruption of wound, unspecified, initial encounter (2) Non-healing surgical wound Status: Acute Code(s): T81.89XA - Other complications of procedures, not elsewhere classified, initial encounter (3) Atrial flutter with rapid ventricular response Status: Acute Code(s): I48.92 - Unspecified atrial flutter (4) Chronic anticoagulation Status: Chronic Code(s): Z79.01 - senior living (current) use of 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s (5) History of cardiac radiofrequency ablation (RFA) Status: Chronic Code(s): Z98.890 - Other specified postprocedural states Comment: For atrial fibrillation 01/15/17 @ [facility] (6) Cellulitis of right lower leg Status: Acute Code(s): L03.115 - Cellulitis of right lower limb (7) Edema of right lower leg Status: Acute Code(s): R60.0 - Localized edema History of Present Illness Date of Service: 07/04/20 Chief Complaint: Follow-up right lower leg dehisced surgical wound from trauma History of Wound: 80-year-old white female hit her right lower leg on her car door and developed a huge laceration that required 10 stitches in the emergency room. Stitches were taken out early because of dehiscence seen by her family doctor and started on doxycycline and cephalexin. Then referred to the wound center. 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 cardiac RFA. Gamma knife Allergies/Adverse Reactions: Allergies No Known Allergies Allergy (Verified 07/04/20 08:35) Home Medications: Ambulatory Orders Medication Instructions Recorded Ascorbic Acid [Vitamin C] 500 mg PO BID 10/28/16 cholecalciferol (vitamin D3) 50 2,000 unit PO QODAY 11/11/18 mcg (2,000 unit) capsule sotalol 80 mg tablet 80 mg PO BID 02/22/19 L.acidoph,Paracasei, B.lactis 1 ea PO DAILY 03/21/19 [Probiotic] Magnesium Oxide [Mag-Ox 400] 400 mg PO DAILY 03/21/19 Vitamin A 10,000 unit PO QODAY 03/21/19 warfarin 1 mg tablet 3.5 mg PO DAILY tab 01/11/20 Vitamin B Complex 1 ea PO QODAY 05/01/20 Methenamine Hippurate [Hiprex] 1 gm PO BID 06/14/20 [facility] 1 tab PO DAILY 06/21/20 Metoprolol Tartrate 12.5 mg PO BID 06/21/20 Cephalexin [Keflex] 500 mg PO Q12 07/04/20 Doxycycline Hyclate 100 mg PO BID 07/04/20 - Family History Maternal Family History: Family History (Last Reviewed 01/26/20 @ 11:38 by Maria E Montoya) Father CAD (coronary artery disease) Cancer - Breast cancer, Heart Disease Paternal Family History: Family History (Last Reviewed 01/26/20 @ 11:38 by Maria E Montoya) Father CAD (coronary artery disease) No pertinent history Smoking Status: Former smoker Review of Systems Constitutional: Denies: Chills, Fever Eyes: Denies: Blurred vision, Drainage, Pain HEENT: Denies: Difficulty Hearing, Difficulty Swallowing, Sore Throat, Visual Changes Cardiovascular: Denies: Chest Pain, Palpitations, Syncope Respiratory: Denies: Cough, Shortness of Breath Gastrointestinal: Denies: Abdominal Pain, Nausea, Vomiting Genitourinary: Denies: Dysuria, Frequency Musculoskeletal: Denies: Joint Pain, Muscle pain Skin: Reports: Wounds - Right lower leg open wound nonhealing from trauma in a dehisced's suturing in the emergency room. Denies: Jaundice, Rash Neurological: Denies: Balance problems, Change in Speech, Difficulty swallowing, Focal weakness Psychiatric: Denies: Anxiety, Depression Endocrine: Denies: Change in Body Habitus Hematologic/ Lymphatic: Denies: Adenopathy - Physical Exam Vital Signs Temp Pulse BP 96.6 F L 70 146/89 H 07/04/20 08:13 07/04/20 08:13 07/04/20 08:13 General: Oriented x3, Cooperative, Well developed HEENT: Atraumatic, PERRLA Oral: Moist Mucosa Neck: Supple, No JVD Lungs: Clear to auscultation, Normal air movement Cardiovascular: Regular rate, Regular Rhythm Abdomen: Bowel Sounds Present, Soft, Non Tender, No Hepato-splenomegaly Extremities: No clubbing, No edema Wound Measurements and Assessment WC - Nurse 1 - General Ulcer Measurement Start: 07/04/20 08:12 Freq: Status: Active Protocol: Activity Type Activity Date Activity User E-Sign Co-Sign Detail Recorded Client Recorded Date Recorded By Document 07/04/20 08:13 KR [id number] 07/04/20 08:30 KR 07/04/20 08:13 Wound Center Nurse 1 [Ulcer Assessment] #2 Right Lateral Pool -Current Size (cm) - Length 4.4 -Current Size (cm) - Width 2.2 -Current Size (cm) - Depth 0.1 -Total Square Cm 9.68 -Exudate Amt Small -Exudate Type Serosanguineous -Wound Margin Distinct, Outline Attached -Granulation Amt Medium (34-66%) -Granulation Quality Red -Necrosis Amt Medium (34-66%) -Necrotic Tissue Type Adherent Slough -Texture (Karen-wound Skin Appearance) Assessed, Scarring -Moisture (Kraen-wound Skin Appearance No Abnormality, ) Assessed -Color (Karen-wound Skin Appearance) No Abnormality, Assessed -Temperature (Karen-wound Skin No Abnormality Appearance) (Pt Warm) -Tenderness on Palpation (Karen-wound No Skin Appearance) -Ulcer Cleansing Rinsed/ Irrigated with Saline -Foul Odor after Cleansing No -Anesthetic Used 4% Lidocaine Solution [Edema Assessment] -Right Calf (cm) 39.2 -Right Ankle (cm) 25.5 -Left Calf (cm) 39.1 -Left Ankle (cm) 21.4 WC - Nurse 2 - General Ulcer CM Notes Start: 07/04/20 08:12 Freq: Status: Active Protocol: Activity Type Activity Date Activity User E-Sign Co-Sign Detail Recorded Client Recorded Date Recorded By Document 07/04/20 08:38 MW [id number] 07/04/20 08:44 MW 07/04/20 08:38 Wound Center Nurse 2 [Procedure/Treatment] #2 Right Lateral Pool -Time 08:38 -Correct Patient Yes -Correct Side, Site, Position Yes -Correct Procedure Yes -Procedure Performed Yes -Type of Procedure Debridement -Clinical Debridement Subcutaneous -Tissue Removed Subcutaneous -Post Debridement (cm) - Length 4.2 -Post Debridement (cm) - Width 1.3 -Post Debridement (cm) - Depth 0.2 -Total Square (Post) (cm) 5.46 -Area of Debridement (cm) - Length 4.2 -Area of Debridement (cm) - Width 1.3 -Total Square (Area) (cm) 5.46 -Tunneling No -Undermining/Tunneling No -Circular Undermining No -Wound/Ulcer Outcome Not Healed -Ulcer Cleansing Rinsed/ Irrigated with Saline -Foul Odor after Cleansing No -Bioengineered Tissue No -Bleeding Controlled with Pressure -Offloading No -Treatment Response Procedure Tolerated Well -Debridement - Subq, 1st 20sq cm Yes [See Physician Procedure note for Specifics] Pain Scale: 0-10 Numeric [Pain] -Is Patient Pain Free? Yes Musculoskeletal: No Tenderness to Palpation of Joints or Extremities Lymphatic: No Cervical, Supraclavicular, or Inguinal Adenopathy Neurological: Cranial nerves II-XII grossly intact, Neuro grossly intact Psych/Mental Status: Normal Affect, Appropriate Debridement Note Post-Debridement Measurements/Treatment WC - Nurse 2 - General Ulcer CM Notes Start: 07/04/20 08:12 Freq: Status: Active Protocol: Activity Type Activity Date Activity User E-Sign Co-Sign Detail Recorded Client Recorded Date Recorded By Document 07/04/20 08:38 MW [id number] 07/04/20 08:44 MW 07/04/20 08:38 Wound Center Nurse 2 #2 Right Lateral Pool -Time 08:38 -Correct Patient Yes -Correct Side, Site, Position Yes -Correct Procedure Yes -Procedure Performed Yes -Type of Procedure Debridement -Clinical Debridement Subcutaneous -Tissue Removed Subcutaneous -Post Debridement (cm) - Length 4.2 -Post Debridement (cm) - Width 1.3 -Post Debridement (cm) - Depth 0.2 -Total Square (Post) (cm) 5.46 -Area of Debridement (cm) - Length 4.2 -Area of Debridement (cm) - Width 1.3 -Total Square (Area) (cm) 5.46 -Tunneling No -Undermining/Tunneling No -Circular Undermining No -Wound/Ulcer Outcome Not Healed -Ulcer Cleansing Rinsed/ Irrigated with Saline -Foul Odor after Cleansing No -Bioengineered Tissue No -Bleeding Controlled with Pressure -Offloading No -Treatment Response Procedure Tolerated Well -Debridement - Subq, 1st 20sq cm Yes Pain Scale: 0-10 Numeric Is Patient Pain Free? Yes Wound debrided: Right lateral pool Type of Debridement: Excisional debridement Anesthesia Used: 5% Lidocaine Gel Depth: Down to and including healthy tissue, in the subcutaneous layer Instrument Used: 5mm curette Tissue Removed: Devitalized tissue Severity: Fat Layer Exposed Assessment/Plan Assessment: Dehisced surgical wound from trauma. Nonhealing surgical wound from trauma. Edema right lower leg. Cellulitis right lower leg. senior living use of blood thinners Plan: Wash right lower leg with antibacterial soap apply Aquacel extra to wound base moistened. Cover with Adaptic and gauze wrap and double layer Tubigrip every day. Finish antibiotics. Follow-up in 1 week
[2020-07-11 09:13] VITALS: BP 141/85; PULSE 71; RESP 18; TEMP 36.1; BMI 27.1
--- NOTE | 2020-07-11 09:28 | PN.PCM_ITS ---
(1) Dehiscence of wound of skin Status: Acute Qualifiers: Encounter type: subsequent encounter Qualified Code(s): T81.30XD - Disruption of wound, unspecified, subsequent encounter Code(s): T81.30XA - Disruption of wound, unspecified, initial encounter (2) Non-healing surgical wound Status: Acute Qualifiers: Encounter type: subsequent encounter Qualified Code(s): T81.89XD - Other complications of procedures, not elsewhere classified, subsequent encounter Code(s): T81.89XA - Other complications of procedures, not elsewhere classified, initial encounter (3) Atrial flutter with rapid ventricular response Status: Chronic Code(s): I48.92 - Unspecified atrial flutter (4) Chronic anticoagulation Status: Chronic Code(s): Z79.01 - long-term (current) use of 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s (5) History of cardiac radiofrequency ablation (RFA) Status: Chronic Code(s): Z98.890 - Other specified postprocedural states Comment: For atrial fibrillation 01/15/17 @ [facility] (6) Cellulitis of right lower leg Status: Acute Code(s): L03.115 - Cellulitis of right lower limb (7) Edema of right lower leg Status: Acute Code(s): R60.0 - Localized edema Type of Wound Date of Service: 07/11/20 Chief Complaint: Follow-up right lower leg dehisced surgical wound from trauma History of Wound: 80-year-old white female hit her right lower leg on her car door and developed a huge laceration that required 10 stitches in the emergency room. Stitches were taken out early because of dehiscence seen by her family doctor and started on doxycycline and cephalexin. Then referred to the wound center. Progress of Wound: Patient finished her antibiotics 1 week ago from her former doctor. Still erythematous around the wound and tender. Will obtain cultures today. Wound itself is smaller still has a deep section healing slowly. No fever chills nausea vomiting patient doing well - Physical Exam Vital Signs Temp Pulse Resp BP 97.0 F L 71 18 141/85 H 07/11/20 09:13 07/11/20 09:13 07/11/20 09:13 07/11/20 09:13 Wound Measurements and Assessment WC - Nurse 1 - General Ulcer Measurement Start: 07/04/20 08:12 Freq: Status: Active Protocol: Activity Type Activity Date Activity User E-Sign Co-Sign Detail Recorded Client Recorded Date Recorded By Document 07/11/20 09:13 MT [id number] 07/11/20 09:16 MT 07/11/20 09:13 Wound Center Nurse 1 [Ulcer Assessment] #2 Right Lateral Pool -Combined with other wound No -Current Size (cm) - Length 4.5 -Current Size (cm) - Width 2.8 -Current Size (cm) - Depth 0.1 -Total Square Cm 12.60 -Photo Taken No -Epithelialization None Present -Tunneling No -Undermining/Tunneling No -Circular Undermining No -Exudate Amt Small -Exudate Type Serosanguineous -Wound Margin Flat & Intact -Granulation Amt Small (1-33%) -Granulation Quality [place] -Slough/Fibrin Yes -Necrosis Amt Medium (34-66%) -Necrotic Tissue Type Adherent Slough -Structure Exposed N/A -Texture (Karen-wound Skin Appearance) Assessed -Moisture (Karen-wound Skin Appearance No Abnormality, ) Assessed -Color (Karen-wound Skin Appearance) No Abnormality, Assessed -Temperature (Karen-wound Skin No Abnormality Appearance) (Pt Warm) -Tenderness on Palpation (Karen-wound Yes Skin Appearance) -Ulcer Cleansing Rinsed/ Irrigated with Saline -Foul Odor after Cleansing No -Anesthetic Used 4% Lidocaine Solution [Edema Assessment] -Lower Limb Edema Present Yes -Right Calf (cm) 39.0 -Right Ankle (cm) 24.0 WC - Nurse 2 - General Ulcer CM Notes Start: 07/04/20 08:12 Freq: Status: Active Protocol: Activity Type Activity Date Activity User E-Sign Co-Sign Detail Recorded Client Recorded Date Recorded By Document 07/11/20 09:21 MW [id number] 07/11/20 09:25 MW 07/11/20 09:21 Wound Center Nurse 2 [Procedure/Treatment] #2 Right Lateral Pool -Time 09:24 -Correct Patient Yes -Correct Side, Site, Position Yes -Correct Procedure Yes -Procedure Performed Yes -Type of Procedure Debridement -Clinical Debridement Subcutaneous -Tissue Removed Subcutaneous -Post Debridement (cm) - Length 3.6 -Post Debridement (cm) - Width 1.0 -Post Debridement (cm) - Depth 0.2 -Total Square (Post) (cm) 3.60 -Area of Debridement (cm) - Length 3.6 -Area of Debridement (cm) - Width 1.0 -Total Square (Area) (cm) 3.60 -Tunneling No -Undermining/Tunneling No -Circular Undermining No -Wound/Ulcer Outcome Not Healed -Ulcer Cleansing Rinsed/ Irrigated with Saline -Foul Odor after Cleansing No -Bioengineered Tissue No -Bleeding Controlled with Pressure -Offloading No -Treatment Response Procedure Tolerated Well -Debridement - Subq, 1st 20sq cm Yes [See Physician Procedure note for Specifics] Pain Scale: 0-10 Numeric [Pain] -Is Patient Pain Free? Yes Debridement Note Post-Debridement Measurements/Treatment WC - Nurse 2 - General Ulcer CM Notes Start: 07/04/20 08:12 Freq: Status: Active Protocol: Activity Type Activity Date Activity User E-Sign Co-Sign Detail Recorded Client Recorded Date Recorded By Document 07/04/20 08:38 MW [id number] 07/04/20 08:44 MW Document 07/11/20 09:21 MW [id number] 07/11/20 09:25 MW 07/04/20 07/11/20 08:38 09:21 Wound Center Nurse 2 #2 Right Lateral Pool -Time 08:38 09:24 -Correct Patient Yes Yes -Correct Side, Site, Position Yes Yes -Correct Procedure Yes Yes -Procedure Performed Yes Yes -Type of Procedure Debridement Debridement -Clinical Debridement Subcutaneous Subcutaneous -Tissue Removed Subcutaneous Subcutaneous -Post Debridement (cm) - Length 4.2 3.6 -Post Debridement (cm) - Width 1.3 1.0 -Post Debridement (cm) - Depth 0.2 0.2 -Total Square (Post) (cm) 5.46 3.60 -Area of Debridement (cm) - Length 4.2 3.6 -Area of Debridement (cm) - Width 1.3 1.0 -Total Square (Area) (cm) 5.46 3.60 -Tunneling No No -Undermining/Tunneling No No -Circular Undermining No No -Wound/Ulcer Outcome Not Healed Not Healed -Ulcer Cleansing Rinsed/ Rinsed/ Irrigated with Irrigated with Saline Saline -Foul Odor after Cleansing No No -Bioengineered Tissue No No -Bleeding Controlled with Pressure Pressure -Offloading No No -Treatment Response Procedure Procedure Tolerated Well Tolerated Well -Debridement - Subq, 1st 20sq cm Yes Yes Pain Scale: 0-10 Numeric Is Patient Pain Free? Yes Yes - Nurse 3 - General Ulcer D/C NN Start: 07/04/20 08:12 Freq: Status: Active Protocol: Activity Type Activity Date Activity User E-Sign Co-Sign Detail Recorded Client Recorded Date Recorded By Document 07/04/20 08:50 [email or web address] 07/04/20 08:52 GISELA 07/04/20 08:50 Wound Care Nurse 3 #2 Right Lateral Pool -Primary Dressing Applied Aquacel Extra, NonAdherent Contact Layer -Primary Dressing Covered/Secured with Dry Gauze, Secured with Tape -Aquacel Extra 1 Right -Tubular Bandage Double Layer -Size of Tubigrip Used Size F -Size F ($) 2 Pain Scale: 0-10 Numeric Is Patient Pain Free? Yes WC - Visit Discharge Discharge Condition Stable Ambulatory Status Ambulatory Transportation Private Auto Wound debrided: Right lateral pool area due to trauma Type of Debridement: Excisional debridement Anesthesia Used: 5% Lidocaine Gel Depth: in the subcutaneous layer Percentage of wound debrided: 100 Instrument Used: 5mm curette Tissue Removed: Fibrin slough devitalized tissue Severity: Fat Layer Exposed Amount of bleeding with debridement: Mild Bleeding Controlled with: Compression and gauze Patient tolerated procedure well Assessment/Plan Aerobic and anaerobic cultures obtained Active Problems (Last Reviewed 01/26/20 @ 11:38 by Maria E Montoya) Dehiscence of wound of skin (Acute) Non-healing surgical wound (Acute) Cellulitis of right lower leg (Acute) Edema of right lower leg (Acute) Atrial flutter with rapid ventricular response (Chronic) History of cardiac radiofrequency ablation (RFA) (Chronic ~01/15/17) For atrial fibrillation 01/15/17 @ [facility] Chronic anticoagulation (Chronic) Assessment: Dehisced surgical wound from trauma. Nonhealing surgical wound from trauma. Edema right lower leg. Cellulitis right lower leg. long-term use of blood thinners Plan: Wash right lower leg with antibacterial soap apply Aquacel extra to wound base moistened. Cover with Adaptic and gauze wrap and double layer Tubigrip every day. Follow-up in 1 week. We will call with culture results
[2020-07-18 11:40] VITALS: BP 152/74; PULSE 72; TEMP 36; BMI 27.1
--- NOTE | 2020-07-18 12:21 | PN.PCM_ITS ---
(1) Dehiscence of wound of skin Status: Acute Qualifiers: Encounter type: subsequent encounter Qualified Code(s): T81.30XD - Disruption of wound, unspecified, subsequent encounter Code(s): T81.30XA - Disruption of wound, unspecified, initial encounter (2) Non-healing surgical wound Status: Acute Qualifiers: Encounter type: subsequent encounter Qualified Code(s): T81.89XD - Other complications of procedures, not elsewhere classified, subsequent encounter Code(s): T81.89XA - Other complications of procedures, not elsewhere classified, initial encounter (3) Atrial flutter with rapid ventricular response Status: Chronic Code(s): I48.92 - Unspecified atrial flutter (4) Chronic anticoagulation Status: Chronic Code(s): Z79.01 - custodial (current) use of 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s (5) History of cardiac radiofrequency ablation (RFA) Status: Chronic Code(s): Z98.890 - Other specified postprocedural states Comment: For atrial fibrillation 01/15/17 @ [facility] (6) Cellulitis of right lower leg Status: Acute Code(s): L03.115 - Cellulitis of right lower limb (7) Edema of right lower leg Status: Acute Code(s): R60.0 - Localized edema Type of Wound Date of Service: 07/18/20 Chief Complaint: Follow-up right lower leg dehisced surgical wound from trauma History of Wound: 80-year-old white female hit her right lower leg on her car door and developed a huge laceration that required 10 stitches in the emergency room. Stitches were taken out early because of dehiscence seen by her family doctor and started on doxycycline and cephalexin. Then referred to the wound center. Progress of Wound: Still erythematous around the wound and tender. cultures negative today. Wound itself is smaller still has a deep section healing slowly. No fever chills nausea vomiting patient doing well. Applying for skin subs - Physical Exam Vital Signs Temp Pulse Resp BP 96.8 F L 72 18 152/74 H 07/18/20 11:40 07/18/20 11:40 07/11/20 09:13 07/18/20 11:40 General: Oriented x3, Cooperative, Well developed HEENT: Atraumatic, PERRLA Oral: Moist Mucosa Neck: Supple, No JVD Lungs: Clear to auscultation, Normal air movement Cardiovascular: Regular rate, Regular Rhythm Abdomen: Bowel Sounds Present, Soft, Non Tender, No Hepato-splenomegaly Extremities: No clubbing, No edema Skin: Ulcer/ Wound - Right lower leg Wound Measurements and Assessment WC - Nurse 1 - General Ulcer Measurement Start: 07/04/20 08:12 Freq: Status: Active Protocol: Activity Type Activity Date Activity User E-Sign Co-Sign Detail Recorded Client Recorded Date Recorded By Document 07/18/20 11:40 KR [id number] 07/18/20 11:41 KR 07/18/20 11:40 Wound Center Nurse 1 [Ulcer Assessment] #2 Right Lateral Michael -Current Size (cm) - Length 4 -Current Size (cm) - Width 1.9 -Current Size (cm) - Depth 0.1 -Total Square Cm 7.6 -Exudate Amt Small -Exudate Type Serosanguineous -Wound Margin Distinct, Outline Attached -Granulation Amt Medium (34-66%) -Granulation Quality Red -Necrosis Amt Small (1-33%) -Necrotic Tissue Type Adherent Slough -Texture (Karen-wound Skin Appearance) Assessed, Scarring -Moisture (Karen-wound Skin Appearance No Abnormality, ) Assessed -Color (Karen-wound Skin Appearance) No Abnormality, Assessed -Temperature (Karen-wound Skin No Abnormality Appearance) (Pt Warm) -Tenderness on Palpation (Karen-wound No Skin Appearance) -Ulcer Cleansing Rinsed/ Irrigated with Saline -Foul Odor after Cleansing No -Anesthetic Used 4% Lidocaine Solution [Edema Assessment] -Right Calf (cm) 40 -Right Ankle (cm) 26 - Nurse 2 - General Ulcer CM Notes Start: 07/04/20 08:12 Freq: Status: Active Protocol: Activity Type Activity Date Activity User E-Sign Co-Sign Detail Recorded Client Recorded Date Recorded By Document 07/18/20 11:45 MW [id number] 07/18/20 11:47 MW 07/18/20 11:45 Wound Center Nurse 2 [Procedure/Treatment] #2 Right Lateral Michael -Time 11:47 -Correct Patient Yes -Correct Side, Site, Position Yes -Correct Procedure Yes -Procedure Performed Yes -Type of Procedure Debridement -Clinical Debridement Subcutaneous -Tissue Removed Subcutaneous -Post Debridement (cm) - Length 3.7 -Post Debridement (cm) - Width 1.1 -Post Debridement (cm) - Depth 0.2 -Total Square (Post) (cm) 4.07 -Area of Debridement (cm) - Length 3.7 -Area of Debridement (cm) - Width 1.1 -Total Square (Area) (cm) 4.07 -Tunneling No -Undermining/Tunneling No -Circular Undermining No -Wound/Ulcer Outcome Not Healed -Ulcer Cleansing Rinsed/ Irrigated with Saline -Foul Odor after Cleansing No -Bioengineered Tissue No -Bleeding Controlled with Pressure -Offloading No -Treatment Response Procedure Tolerated Well -Debridement - Subq, 1st 20sq cm Yes [See Physician Procedure note for Specifics] Pain Scale: 0-10 Numeric [Pain] -Is Patient Pain Free? Yes - Nurse 3 - General Ulcer D/C NN Start: 07/04/20 08:12 Freq: Status: Active Protocol: Activity Type Activity Date Activity User E-Sign Co-Sign Detail Recorded Client Recorded Date Recorded By Document 07/18/20 11:54 KR [id number] 07/18/20 11:55 KR 07/18/20 11:54 Wound Care Nurse 3 [Wound Dressing] #2 Right Lateral Michael -Ulcer Cleansing Rinsed/ Irrigated with Saline -Foul Odor after Cleansing No -Primary Dressing Applied Aquacel Extra, NonAdherent Contact Layer -Primary Dressing Covered/Secured Dry Gauze, with Secured with Tape -Aquacel Extra 1 [Compression Applied] Right -Tubular Bandage Double Layer -Size of Tubigrip Used Size F -Size F ($) 2 Pain Scale: 0-10 Numeric [Pain] -Is Patient Pain Free? Yes - Visit Discharge [Visit Discharge Information] -Discharge Condition Stable -Ambulatory Status Ambulatory -Transportation Private Auto Musculoskeletal: No Tenderness to Palpation of Joints or Extremities Lymphatic: No Cervical, Supraclavicular, or Inguinal Adenopathy Neurological: Cranial nerves II-XII grossly intact, Neuro grossly intact Psych/Mental Status: Normal Affect, Appropriate Debridement Note Post-Debridement Measurements/Treatment WC - Nurse 2 - General Ulcer CM Notes Start: 07/04/20 08:12 Freq: Status: Active Protocol: Activity Type Activity Date Activity User E-Sign Co-Sign Detail Recorded Client Recorded Date Recorded By Document 07/04/20 08:38 MW [id number] 07/04/20 08:44 MW Document 07/11/20 09:21 MW [id number] 07/11/20 09:25 MW Document 07/18/20 11:45 MW [id number] 07/18/20 11:47 MW 07/04/20 07/11/20 07/18/20 08:38 09:21 11:45 Wound Center Nurse 2 #2 Right Lateral Michael -Time 08:38 09:24 11:47 -Correct Patient Yes Yes Yes -Correct Side, Site, Position Yes Yes Yes -Correct Procedure Yes Yes Yes -Procedure Performed Yes Yes Yes -Type of Procedure Debridement Debridement Debridement -Clinical Debridement Subcutaneous Subcutaneous Subcutaneous -Tissue Removed Subcutaneous Subcutaneous Subcutaneous -Post Debridement (cm) - Length 4.2 3.6 3.7 -Post Debridement (cm) - Width 1.3 1.0 1.1 -Post Debridement (cm) - Depth 0.2 0.2 0.2 -Total Square (Post) (cm) 5.46 3.60 4.07 -Area of Debridement (cm) - Length 4.2 3.6 3.7 -Area of Debridement (cm) - Width 1.3 1.0 1.1 -Total Square (Area) (cm) 5.46 3.60 4.07 -Tunneling No No No -Undermining/Tunneling No No No -Circular Undermining No No No -Wound/Ulcer Outcome Not Healed Not Healed Not Healed -Ulcer Cleansing Rinsed/ Rinsed/ Rinsed/ Irrigated with Irrigated with Irrigated with Saline Saline Saline -Foul Odor after Cleansing No No No -Bioengineered Tissue No No No -Bleeding Controlled with Pressure Pressure Pressure -Offloading No No No -Treatment Response Procedure Procedure Procedure Tolerated Well Tolerated Well Tolerated Well -Debridement - Subq, 1st 20sq cm Yes Yes Yes Pain Scale: 0-10 Numeric Is Patient Pain Free? Yes Yes Yes WC - Nurse 3 - General Ulcer D/C NN Start: 07/04/20 08:12 Freq: Status: Active Protocol: Activity Type Activity Date Activity User E-Sign Co-Sign Detail Recorded Client Recorded Date Recorded By Document 07/04/20 08:50 KR [id number] 07/04/20 08:52 KR Document 07/11/20 09:25 MW [id number] 07/11/20 09:35 MW Document 07/18/20 11:54 KR [id number] 07/18/20 11:55 KR 02/03/1407/11/20 07/18/20 08:50 09:25 11:54 Wound Care Nurse 3 #2 Right Lateral Michael -Ulcer Cleansing Rinsed/ Rinsed/ Irrigated with Irrigated with Saline Saline -Foul Odor after Cleansing No No -Negative Pressure Wound Therapy N/A -Primary Dressing Applied Aquacel Extra, Aquacel Extra, Aquacel Extra, NonAdherent NonAdherent NonAdherent Contact Layer Contact Layer Contact Layer -Primary Dressing Covered/Secured with Dry Gauze, Dry Gauze & Dry Gauze, Secured with Roll Gauze Secured with Tape Tape -Aquacel Extra 1 1 1 Right -Lotion applied to leg before No compression wrap -Tubular Bandage Double Layer Double Layer -Size of Tubigrip Used Size F Size F -Size F ($) 2 2 -Other double layer tubigrip Treatment Response Procedure Tolerated Well Pain Scale: 0-10 Numeric Is Patient Pain Free? Yes Yes Yes Teaching: Wound Center Dressing Your Wound -Person Taught Patient -Teaching Method Discussion, Demonstration -Response to teaching Verbalize understanding WC - Visit Discharge Discharge Condition Stable Stable Stable Ambulatory Status Ambulatory Ambulatory Ambulatory Transportation Private Auto Private Auto Private Auto Accompanied by self Medication Reconcilliation completed & No provided to patient/care provider Clinical Summary of Care Provided Yes Wound debrided: Right lower leg wound from trauma Type of Debridement: Excisional debridement Anesthesia Used: 5% Lidocaine Gel Depth: Down to and including healthy tissue, in the subcutaneous layer Instrument Used: 5mm curette Tissue Removed: Slough Severity: Fat Layer Exposed Assessment/Plan Active Problems (Last Reviewed 01/26/20 @ 11:38 by Maria E Montoya) Dehiscence of wound of skin (Acute) Non-healing surgical wound (Acute) Cellulitis of right lower leg (Acute) Edema of right lower leg (Acute) Atrial flutter with rapid ventricular response (Chronic) History of cardiac radiofrequency ablation (RFA) (Chronic ~01/15/17) For atrial fibrillation 01/15/17 @ [facility] Chronic anticoagulation (Chronic) Assessment: Dehisced surgical wound from trauma. Nonhealing surgical wound from trauma. Edema right lower leg. Cellulitis right lower leg. long term care pharmacist use of blood thinners Plan: Wash right lower leg with antibacterial soap apply Aquacel extra to wound base moistened. Cover with Adaptic and gauze wrap and double layer Tubigrip every day. Follow-up in 1 week. Applied for skin subs
== END 2020-07-22 23:59 ==
LOC: WC 11:30
PROVIDERS: PCP Family Medicine Geriatric Medicine; Visit Provider Nurse Practitioner
DX: T81.31XA Disruption of external operation (surgical) wound, not elsewhere classified, initial encounter (principal); T81.89XA Other complications of procedures, not elsewhere classified, initial encounter; I48.92 Unspecified atrial flutter; Z79.01 Long term (current) use of 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s; L03.115 Cellulitis of right lower limb; R60.0 Localized edema; I10 Essential (primary) hypertension; E78.5 Hyperlipidemia, unspecified; I48.0 Paroxysmal atrial fibrillation; Z80.3 Family history of malignant neoplasm of breast; Z82.49 Family history of ischemic heart disease and other diseases of the circulatory system; Z87.891 Personal history of nicotine dependence
CPT/HCPCS: 11042; 87070; 87075; 87077; 87186; 87205; 99213; G0463

== ENCOUNTER 2020-08-08 09:00 | Outpatient (RCR) | payer MEDICARE, OTHER, SELFPAY ==
[2020-07-23 00:37] VITALS: BP 152/74; PULSE 72; RESP 18; TEMP 36
[2020-07-25 09:22] VITALS: BP 141/74; PULSE 69; RESP 16; TEMP 36.5; BMI 27.1
--- NOTE | 2020-07-25 09:45 | PN.PCM_ITS ---
(1) Dehiscence of wound of skin Status: Acute Qualifiers: Encounter type: subsequent encounter Code(s): T81.30XA - Disruption of wound, unspecified, initial encounter (2) Edema of right lower leg Status: Acute Code(s): R60.0 - Localized edema (3) Chronic anticoagulation Status: Chronic Code(s): Z79.01 - [facility] (current) use of 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s (4) Non-healing surgical wound Status: Acute Qualifiers: Code(s): T81.89XA - Other complications of procedures, not elsewhere classified, initial encounter Type of Wound Date of Service: 07/25/20 Chief Complaint: Follow-up right lower leg dehisced surgical wound from trauma History of Wound: 80-year-old white female hit her right lower leg on her car door and developed a huge laceration that required 10 stitches in the emergency room. Stitches were taken out early because of dehiscence seen by her family doctor and started on doxycycline and cephalexin. Then referred to the wound center. Progress of Wound: Still erythematous around the wound and tender. cultures negative today. Wound itself is smaller still has a deep section healing slowly. No fever chills nausea vomiting patient doing well. Prefix #1 applied this week. Still healing slowly but well - Physical Exam Vital Signs Temp Pulse Resp BP 97.7 F L 69 16 141/74 H 07/25/20 09:22 07/25/20 09:22 07/25/20 09:22 07/25/20 09:22 General: Oriented x3, Cooperative, Well developed HEENT: Atraumatic, PERRLA Oral: Moist Mucosa Neck: Supple, No JVD Lungs: Clear to auscultation, Normal air movement Cardiovascular: Regular rate, Regular Rhythm Abdomen: Bowel Sounds Present, Soft, Non Tender, No Hepato-splenomegaly Extremities: No clubbing, No edema, - - Open wound dehisced surgical site from trauma Wound Measurements and Assessment WC - Nurse 1 - General Ulcer Measurement Start: 07/25/20 09:22 Freq: Status: Active Protocol: Activity Type Activity Date Activity User E-Sign Co-Sign Detail Recorded Client Recorded Date Recorded By Document 07/25/20 09:22 PA [id number] 07/25/20 09:25 PA 07/25/20 09:22 Wound Center Nurse 1 [Ulcer Assessment] #2 Right Lateral Pool -Current Size (cm) - Length 4 -Current Size (cm) - Width 1.5 -Current Size (cm) - Depth 0.1 -Total Square Cm 6.0 -Tunneling No -Undermining/Tunneling No -Circular Undermining No -Exudate Amt None Present -Wound Margin Flat & Intact -Granulation Amt Large (67-100%) -Granulation Quality Pale,Chunky -Necrosis Amt Small (1-33%) -Necrotic Tissue Type Adherent Slough -Texture (Karen-wound Skin Appearance) Assessed -Moisture (Karen-wound Skin Appearance Assessed ) -Color (Karen-wound Skin Appearance) Hemosiderin Staining -Temperature (Karen-wound Skin No Abnormality Appearance) (Pt Warm) -Tenderness on Palpation (Karen-wound No Skin Appearance) -Ulcer Cleansing Wound Cleanser -Foul Odor after Cleansing No -Anesthetic Used 4% Lidocaine Solution [Edema Assessment] -Lower Limb Edema Present Yes -Right Calf (cm) 39 -Right Ankle (cm) 24 WC - Nurse 2 - General Ulcer CM Notes Start: 07/25/20 09:22 Freq: Status: Active Protocol: Activity Type Activity Date Activity User E-Sign Co-Sign Detail Recorded Client Recorded Date Recorded By Document 07/25/20 09:36 MW [id number] 07/25/20 09:43 MW 07/25/20 09:36 Wound Center Nurse 2 [Procedure/Treatment] #2 Right Lateral Pool -Time 09:38 -Correct Patient Yes -Correct Side, Site, Position Yes -Correct Procedure Yes -Procedure Performed Yes -Type of Procedure Debridement -Clinical Debridement Subcutaneous -Tissue Removed Subcutaneous -Post Debridement (cm) - Length 3.7 -Post Debridement (cm) - Width 0.8 -Post Debridement (cm) - Depth 0.1 -Total Square (Post) (cm) 2.96 -Area of Debridement (cm) - Length 3.7 -Area of Debridement (cm) - Width 0.8 -Total Square (Area) (cm) 2.96 -Tunneling No -Undermining/Tunneling No -Circular Undermining No -Wound/Ulcer Outcome Not Healed -Ulcer Cleansing Rinsed/ Irrigated with Saline -Foul Odor after Cleansing No -Bioengineered Tissue Yes -Type of Bioengineered Tissue Epifix -Expiration Date 02/22/25 -Product Lot Number [id number] -Percent Used 100 -Lot number of Saline Used [id number] -Bleeding Controlled with Pressure -Offloading No -Treatment Response Procedure Tolerated Well -Debridement - Subq, 1st 20sq cm No -Apply Skin Sub - 1st 25 sq cm - Legs 1 -Epifix (per sq cm) 4 [See Physician Procedure note for Specifics] Pain Scale: 0-10 Numeric [Pain] -Is Patient Pain Free? Yes Musculoskeletal: No Tenderness to Palpation of Joints or Extremities Lymphatic: No Cervical, Supraclavicular, or Inguinal Adenopathy Neurological: Cranial nerves II-XII grossly intact, Neuro grossly intact Psych/Mental Status: Normal Affect, Appropriate Debridement Note Post-Debridement Measurements/Treatment WC - Nurse 2 - General Ulcer CM Notes Start: 07/25/20 09:22 Freq: Status: Active Protocol: Activity Type Activity Date Activity User E-Sign Co-Sign Detail Recorded Client Recorded Date Recorded By Document 07/25/20 09:36 MW [id number] 07/25/20 09:43 MW 07/25/20 09:36 Wound Center Nurse 2 #2 Right Lateral Pool -Time 09:38 -Correct Patient Yes -Correct Side, Site, Position Yes -Correct Procedure Yes -Procedure Performed Yes -Type of Procedure Debridement -Clinical Debridement Subcutaneous -Tissue Removed Subcutaneous -Post Debridement (cm) - Length 3.7 -Post Debridement (cm) - Width 0.8 -Post Debridement (cm) - Depth 0.1 -Total Square (Post) (cm) 2.96 -Area of Debridement (cm) - Length 3.7 -Area of Debridement (cm) - Width 0.8 -Total Square (Area) (cm) 2.96 -Tunneling No -Undermining/Tunneling No -Circular Undermining No -Wound/Ulcer Outcome Not Healed -Ulcer Cleansing Rinsed/ Irrigated with Saline -Foul Odor after Cleansing No -Bioengineered Tissue Yes -Type of Bioengineered Tissue Epifix -Expiration Date 02/22/25 -Product Lot Number [id number] -Percent Used 100 -Lot number of Saline Used [id number] -Bleeding Controlled with Pressure -Offloading No -Treatment Response Procedure Tolerated Well -Debridement - Subq, 1st 20sq cm No -Apply Skin Sub - 1st 25 sq cm - Legs 1 -Epifix (per sq cm) 4 Pain Scale: 0-10 Numeric Is Patient Pain Free? Yes Wound debrided: Right pool Type of Debridement: Excisional debridement Anesthesia Used: 5% Lidocaine Gel Depth: Down to and including healthy tissue Percentage of wound debrided: 100 Instrument Used: 5mm curette Tissue Removed: Devitalized tissue and slough Severity: Limited To Skin Breakdown Bleeding Controlled with: Compression and gauze Patient tolerated procedure well Assessment/Plan Active Problems (Last Reviewed 01/26/20 @ 11:38 by Maria E Montoya) Dehiscence of wound of skin (Acute) Edema of right lower leg (Acute) Chronic anticoagulation (Chronic) Assessment: Dehisced surgical wound from trauma. Nonhealing surgical wound from trauma. Edema right lower leg. Cellulitis right lower leg. [facility] use of blood thinners Plan: Epi fix #1 applied with wound veil gauze [place] double layer Tubigrip. Leave on do not get wet. Follow-up in 1 week
[2020-08-01 09:16] VITALS: TEMP 36.4; BMI 27.1
--- NOTE | 2020-08-01 09:46 | PCM.WC.PN ---
(1) Dehiscence of wound of skin Status: Acute Qualifiers: Encounter type: subsequent encounter Code(s): T81.30XA - Disruption of wound, unspecified, initial encounter (2) Edema of right lower leg Status: Acute Code(s): R60.0 - Localized edema (3) Chronic anticoagulation Status: Chronic Code(s): Z79.01 - long term care administrator (current) use of 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s (4) Non-healing surgical wound Status: Acute Qualifiers: Code(s): T81.89XA - Other complications of procedures, not elsewhere classified, initial encounter Type of Wound Date of Service: 08/01/20 Chief Complaint: Follow-up right lower leg dehisced surgical wound from trauma History of Wound: 80-year-old white female hit her right lower leg on her car door and developed a huge laceration that required 10 stitches in the emergency room. Stitches were taken out early because of dehiscence seen by her family doctor and started on doxycycline and cephalexin. Then referred to the wound center. Progress of Wound: After 1 application of epifix wound is half the size and filling in very well. Some maceration around the edge will apply Aquacel extra on top of epifix this week to absorb moisture patient doing well no pain. - Physical Exam Vital Signs Temp Pulse Resp BP 97.6 F L 69 16 141/74 H 08/01/20 09:16 07/25/20 09:22 07/25/20 09:22 07/25/20 09:22 General: Oriented x3, Cooperative, Well developed HEENT: Atraumatic, PERRLA Oral: Moist Mucosa Neck: Supple, No JVD Lungs: Clear to auscultation, Normal air movement Cardiovascular: Regular rate, Regular Rhythm Abdomen: Bowel Sounds Present, Soft, Non Tender, No Hepato-splenomegaly Extremities: No clubbing, No edema, - - Right lateral lower pool dehisced wound healing well on epi fix Wound Measurements and Assessment WC - Nurse 1 - General Ulcer Measurement Start: 07/25/20 09:22 Freq: Status: Active Protocol: Activity Type Activity Date Activity User E-Sign Co-Sign Detail Recorded Client Recorded Date Recorded By Document 08/01/20 09:16 GISELA [id number] 08/01/20 09:21 GISELA 08/01/20 09:16 Wound Center Nurse 1 [Ulcer Assessment] #2 Right Lateral Pool -Current Size (cm) - Length 2.5 -Current Size (cm) - Width 1.3 -Current Size (cm) - Depth 0.2 -Total Square Cm 3.25 -Exudate Type Serosanguineous -Wound Margin Distinct, Outline Attached -Granulation Amt Large (67-100%) -Granulation Quality Red -Necrosis Amt None Present (0 %) -Texture (Karen-wound Skin Appearance) Assessed, Scarring -Moisture (Karen-wound Skin Appearance No Abnormality, ) Assessed -Color (Karen-wound Skin Appearance) No Abnormality, Assessed -Temperature (Karen-wound Skin No Abnormality Appearance) (Pt Warm) -Tenderness on Palpation (Karen-wound No Skin Appearance) -Ulcer Cleansing Rinsed/ Irrigated with Saline -Foul Odor after Cleansing No -Anesthetic Used 4% Lidocaine Solution [Edema Assessment] -Right Calf (cm) 39.5 -Right Ankle (cm) 23.6 WC - Nurse 2 - General Ulcer CM Notes Start: 07/25/20 09:22 Freq: Status: Active Protocol: Activity Type Activity Date Activity User E-Sign Co-Sign Detail Recorded Client Recorded Date Recorded By Document 08/01/20 09:34 MW [id number] 08/01/20 09:40 MW 08/01/20 09:34 Wound Center Nurse 2 [Procedure/Treatment] #2 Right Lateral Pool -Time 09:38 -Correct Patient Yes -Correct Side, Site, Position Yes -Correct Procedure Yes -Procedure Performed Yes -Type of Procedure Debridement -Clinical Debridement Subcutaneous -Tissue Removed Subcutaneous -Post Debridement (cm) - Length 1.5 -Post Debridement (cm) - Width 0.7 -Post Debridement (cm) - Depth 0.1 -Total Square (Post) (cm) 1.05 -Area of Debridement (cm) - Length 1.5 -Area of Debridement (cm) - Width 0.7 -Total Square (Area) (cm) 1.05 -Tunneling No -Undermining/Tunneling No -Circular Undermining No -Wound/Ulcer Outcome Not Healed -Ulcer Cleansing Rinsed/ Irrigated with Saline -Foul Odor after Cleansing No -Bioengineered Tissue Yes -Type of Bioengineered Tissue Epifix -Expiration Date 02/22/25 -Product Lot Number [id number] -Percent Used 100 -Lot number of Saline Used [id number] -Bleeding Controlled with Pressure -Offloading No -Treatment Response Procedure Tolerated Well -Debridement - Subq, 1st 20sq cm No -Apply Skin Sub - 1st 25 sq cm - Legs 1 -Epifix (per sq cm) 4 [See Physician Procedure note for Specifics] Pain Scale: 0-10 Numeric [Pain] -Is Patient Pain Free? Yes - Nurse 3 - General Ulcer D/C NN Start: 07/25/20 09:22 Freq: Status: Active Protocol: Activity Type Activity Date Activity User E-Sign Co-Sign Detail Recorded Client Recorded Date Recorded By Document 08/01/20 09:45 BMF [id number] 08/01/20 09:46 BMF 08/01/20 09:45 Wound Care Nurse 3 [Wound Dressing] #2 Right Lateral Pool -Primary Dressing Applied Aquacel Extra, Other -Other Dressing EPIFIX -Primary Dressing Covered/Secured Dry Gauze & with Roll Gauze, Secured with Tape -Other Covering DRSG PER K CRISTINSKI JUVENILE DETENTION OFFICER -Aquacel Extra 1 [Compression Applied] Right -Other APPLIE DPTS OWN TUBI [Post Procedure Tolerated] -Treatment Response Procedure Tolerated Well Pain Scale: 0-10 Numeric [Pain] -Is Patient Pain Free? Yes - Visit Discharge [Visit Discharge Information] -Discharge Condition Stable -Ambulatory Status Ambulatory -Transportation Private Auto Musculoskeletal: No Tenderness to Palpation of Joints or Extremities Lymphatic: No Cervical, Supraclavicular, or Inguinal Adenopathy Neurological: Cranial nerves II-XII grossly intact, Neuro grossly intact Psych/Mental Status: Normal Affect, Appropriate Debridement Note Post-Debridement Measurements/Treatment - Nurse 2 - General Ulcer CM Notes Start: 07/25/20 09:22 Freq: Status: Active Protocol: Activity Type Activity Date Activity User E-Sign Co-Sign Detail Recorded Client Recorded Date Recorded By Document 07/25/20 09:36 MW [id number] 07/25/20 09:43 MW Document 08/01/20 09:34 MW [id number] 08/01/20 09:40 MW 07/25/20 08/01/20 09:36 09:34 Wound Center Nurse 2 #2 Right Lateral Pool -Time 09:38 09:38 -Correct Patient Yes Yes -Correct Side, Site, Position Yes Yes -Correct Procedure Yes Yes -Procedure Performed Yes Yes -Type of Procedure Debridement Debridement -Clinical Debridement Subcutaneous Subcutaneous -Tissue Removed Subcutaneous Subcutaneous -Post Debridement (cm) - Length 3.7 1.5 -Post Debridement (cm) - Width 0.8 0.7 -Post Debridement (cm) - Depth 0.1 0.1 -Total Square (Post) (cm) 2.96 1.05 -Area of Debridement (cm) - Length 3.7 1.5 -Area of Debridement (cm) - Width 0.8 0.7 -Total Square (Area) (cm) 2.96 1.05 -Tunneling No No -Undermining/Tunneling No No -Circular Undermining No No -Wound/Ulcer Outcome Not Healed Not Healed -Ulcer Cleansing Rinsed/ Rinsed/ Irrigated with Irrigated with Saline Saline -Foul Odor after Cleansing No No -Bioengineered Tissue Yes Yes -Type of Bioengineered Tissue Epifix Epifix -Expiration Date 02/22/25 02/22/25 -Product Lot Number [id number] -Percent Used 100 100 -Lot number of Saline Used [id number] -Bleeding Controlled with Pressure Pressure -Offloading No No -Treatment Response Procedure Procedure Tolerated Well Tolerated Well -Debridement - Subq, 1st 20sq cm No No -Apply Skin Sub - 1st 25 sq cm - Legs 1 1 -Epifix (per sq cm) 4 4 Pain Scale: 0-10 Numeric Is Patient Pain Free? Yes Yes - Nurse 3 - General Ulcer D/C NN Start: 07/25/20 09:22 Freq: Status: Active Protocol: Activity Type Activity Date Activity User E-Sign Co-Sign Detail Recorded Client Recorded Date Recorded By Document 07/25/20 09:47 DE [id number] 07/25/20 10:12 MT Document 08/01/20 09:45 [facility] [id number] 08/01/20 09:46 BM 07/25/20 08/01/20 09:47 09:45 Wound Care Nurse 3 #2 Right Lateral Pool -Primary Dressing Applied Aquacel Extra, Other -Other Dressing EPIFIX -Primary Dressing Covered/Secured with Dry Gauze & Dry Gauze & Roll Gauze, Roll Gauze, Secured with Secured with Tape Tape -Other Covering DRSG PER Rina MORGAN LPN -Aquacel Extra 1 Right -Lotion applied to leg before No compression wrap -Other APPLIE DPTS OWN TUBI Treatment Response Procedure Tolerated Well Pain Scale: 0-10 Numeric Is Patient Pain Free? Yes WC - Visit Discharge Discharge Condition Stable Stable Ambulatory Status Ambulatory Ambulatory Transportation Private Auto Private Auto Medication Reconcilliation completed & No provided to patient/care provider Clinical Summary of Care Provided Yes Notes: KEEP DRESSING CLEAN, DRY AND INTACT. CHANGE WHEN WET. Wound debrided: Right lower pool Type of Debridement: Excisional debridement Anesthesia Used: 5% Lidocaine Gel Depth: Down to and including healthy tissue Instrument Used: 5mm curette Tissue Removed: Fibrin Severity: Limited To Skin Breakdown Amount of bleeding with debridement: Mild Bleeding Controlled with: Pressure Patient tolerated procedure well Assessment/Plan Active Problems (Last Reviewed 07/30/20 @ 14:35 by Patricia Gusman) Dehiscence of wound of skin (Acute) Non-healing surgical wound (Acute) Edema of right lower leg (Acute) Chronic anticoagulation (Chronic) Assessment: Dehisced surgical wound from trauma. Nonhealing surgical wound from trauma. Edema right lower leg. Cellulitis right lower leg. care home use of blood thinners Plan: Epi fix #2 applied with wound veil Steri-Strips Aquacel extra gauze Chelsy double layer Tubigrip. Leave on do not get wet. Follow-up in 1 week
[2020-08-08 09:06] VITALS: BP 139/71; PULSE 68; RESP 16; TEMP 36.5; BMI 27.1
--- NOTE | 2020-08-08 09:37 | PCM.WC.PN ---
(1) Dehiscence of wound of skin Status: Acute Qualifiers: Encounter type: subsequent encounter Code(s): T81.30XA - Disruption of wound, unspecified, initial encounter (2) Edema of right lower leg Status: Acute Code(s): R60.0 - Localized edema (3) Chronic anticoagulation Status: Chronic Code(s): Z79.01 - correction (current) use of 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s (4) Non-healing surgical wound Status: Acute Qualifiers: Code(s): T81.89XA - Other complications of procedures, not elsewhere classified, initial encounter Type of Wound Date of Service: 08/08/20 Chief Complaint: Follow-up right lower leg dehisced surgical wound from trauma History of Wound: 80-year-old white female hit her right lower leg on her car door and developed a huge laceration that required 10 stitches in the emergency room. Stitches were taken out early because of dehiscence seen by her family doctor and started on doxycycline and cephalexin. Then referred to the wound center. Progress of Wound: After 2 application of epifix the wound is healed. Patient will be discharged with dry dressing to protect new skin and continue wearing compression stocking for the next week or so. - Physical Exam Vital Signs Temp Pulse Resp BP 97.7 F L 68 16 139/71 H 08/08/20 09:06 08/08/20 09:06 08/08/20 09:06 08/08/20 09:06 General: Oriented x3, Cooperative, Well developed HEENT: Atraumatic, PERRLA Oral: Moist Mucosa Neck: Supple, No JVD Lungs: Clear to auscultation, Normal air movement Cardiovascular: Regular rate, Regular Rhythm Abdomen: Bowel Sounds Present, Soft, Non Tender, No Hepato-splenomegaly Extremities: No clubbing, No edema Skin: Ulcer/ Wound - Right pool wound resolved Wound Measurements and Assessment WC - Nurse 1 - General Ulcer Measurement Start: 07/25/20 09:22 Freq: Status: Active Protocol: Activity Type Activity Date Activity User E-Sign Co-Sign Detail Recorded Client Recorded Date Recorded By Document 08/08/20 09:06 [facility] [id number] 08/08/20 09:17 [facility] 08/08/20 09:06 Wound Center Nurse 1 [Ulcer Assessment] #2 Right Lateral Pool -Combined with other wound No -Current Size (cm) - Length 2.2 -Current Size (cm) - Width 1.2 -Current Size (cm) - Depth 0.1 -Total Square Cm 2.64 -Photo Taken No -Epithelialization Medium 34-66% -Tunneling No -Undermining/Tunneling No -Circular Undermining No -Exudate Amt Small -Exudate Type Serosanguineous -Wound Margin Distinct, Outline Attached -Granulation Amt Large (67-100%) -Granulation Quality Pale,Red -Slough/Fibrin Yes -Necrosis Amt Small (1-33%) -Necrotic Tissue Type Adherent Slough -Texture (Karen-wound Skin Appearance) Assessed, Scarring -Moisture (Karen-wound Skin Appearance Assessed,Dry/ ) Scaly -Color (Karen-wound Skin Appearance) Assessed -Temperature (Karen-wound Skin No Abnormality Appearance) (Pt Warm) -Tenderness on Palpation (Karen-wound No Skin Appearance) -Ulcer Cleansing SOAPY WATER -Foul Odor after Cleansing No -Anesthetic Used 4% Lidocaine Solution [Edema Assessment] -Lower Limb Edema Present Yes -Right Calf (cm) 39.2 -Right Ankle (cm) 23.5 WC - Nurse 2 - General Ulcer CM Notes Start: 07/25/20 09:22 Freq: Status: Active Protocol: Activity Type Activity Date Activity User E-Sign Co-Sign Detail Recorded Client Recorded Date Recorded By Document 08/08/20 09:34 MW [id number] 08/08/20 09:35 MW 08/08/20 09:34 Wound Center Nurse 2 [Procedure/Treatment] #2 Right Lateral Pool -Time 09:34 -Correct Patient Yes -Correct Side, Site, Position Yes -Correct Procedure Yes -Procedure Performed No -Post Debridement (cm) - Length 0 -Post Debridement (cm) - Width 0 -Post Debridement (cm) - Depth 0 -Total Square (Post) (cm) 0 -Wound/Ulcer Outcome Healed- Epithelialized [See Physician Procedure note for Specifics] Pain Scale: 0-10 Numeric [Pain] -Is Patient Pain Free? Yes Musculoskeletal: No Tenderness to Palpation of Joints or Extremities Lymphatic: No Cervical, Supraclavicular, or Inguinal Adenopathy Neurological: Cranial nerves II-XII grossly intact, Neuro grossly intact Psych/Mental Status: Normal Affect, Appropriate Debridement Note Post-Debridement Measurements/Treatment WC - Nurse 2 - General Ulcer CM Notes Start: 07/25/20 09:22 Freq: Status: Active Protocol: Activity Type Activity Date Activity User E-Sign Co-Sign Detail Recorded Client Recorded Date Recorded By Document 07/25/20 09:36 MW [id number] 07/25/20 09:43 MW Document 08/01/20 09:34 MW [id number] 08/01/20 09:40 MW Document 08/08/20 09:34 MW [id number] 08/08/20 09:35 MW 07/25/20 08/01/20 08/08/20 09:36 09:34 09:34 Wound Center Nurse 2 #2 Right Lateral Pool -Time 09:38 09:38 09:34 -Correct Patient Yes Yes Yes -Correct Side, Site, Position Yes Yes Yes -Correct Procedure Yes Yes Yes -Procedure Performed Yes Yes No -Type of Procedure Debridement Debridement -Clinical Debridement Subcutaneous Subcutaneous -Tissue Removed Subcutaneous Subcutaneous -Post Debridement (cm) - Length 3.7 1.5 0 -Post Debridement (cm) - Width 0.8 0.7 0 -Post Debridement (cm) - Depth 0.1 0.1 0 -Total Square (Post) (cm) 2.96 1.05 0 -Area of Debridement (cm) - Length 3.7 1.5 -Area of Debridement (cm) - Width 0.8 0.7 -Total Square (Area) (cm) 2.96 1.05 -Tunneling No No -Undermining/Tunneling No No -Circular Undermining No No -Wound/Ulcer Outcome Not Healed Not Healed Healed- Epithelialized -Ulcer Cleansing Rinsed/ Rinsed/ Irrigated with Irrigated with Saline Saline -Foul Odor after Cleansing No No -Bioengineered Tissue Yes Yes -Type of Bioengineered Tissue Epifix Epifix -Expiration Date 02/22/25 02/22/25 -Product Lot Number [id number] -Percent Used 100 100 -Lot number of Saline Used [id number] -Bleeding Controlled with Pressure Pressure -Offloading No No -Treatment Response Procedure Procedure Tolerated Well Tolerated Well -Debridement - Subq, 1st 20sq cm No No -Apply Skin Sub - 1st 25 sq cm - Legs 1 1 -Epifix (per sq cm) 4 4 Pain Scale: 0-10 Numeric Is Patient Pain Free? Yes Yes Yes - Nurse 3 - General Ulcer D/C NN Start: 07/25/20 09:22 Freq: Status: Active Protocol: Activity Type Activity Date Activity User E-Sign Co-Sign Detail Recorded Client Recorded Date Recorded By Document 07/25/20 09:47 [place] [id number] 07/25/20 10:12 [place] Document 08/01/20 09:45 [facility] [id number] 08/01/20 09:46 [facility] 07/25/20 08/01/20 09:47 09:45 Wound Care Nurse 3 #2 Right Lateral Pool -Primary Dressing Applied Aquacel Extra, Other -Other Dressing EPIFIX -Primary Dressing Covered/Secured with Dry Gauze & Dry Gauze & Roll Gauze, Roll Gauze, Secured with Secured with Tape Tape -Other Covering DRSG PER K CRISTINSKI HORTICULTURE SUPERVISOR -Aquacel Extra 1 Right -Lotion applied to leg before No compression wrap -Other APPLIE DPTS OWN TUBI Treatment Response Procedure Tolerated Well Pain Scale: 0-10 Numeric Is Patient Pain Free? Yes WC - Visit Discharge Discharge Condition Stable Stable Ambulatory Status Ambulatory Ambulatory Transportation Private Auto Private Auto Medication Reconcilliation completed & No provided to patient/care provider Clinical Summary of Care Provided Yes Notes: KEEP DRESSING CLEAN, DRY AND INTACT. CHANGE WHEN WET. Wound debrided: Pool wound No debridement was completed today Assessment/Plan Active Problems (Last Reviewed 07/30/20 @ 14:35 by Patricia Gusman) Dehiscence of wound of skin (Acute) Non-healing surgical wound (Acute) Edema of right lower leg (Acute) Chronic anticoagulation (Chronic) Assessment: Dehisced surgical wound from trauma resolved. Nonhealing surgical wound from trauma resolved. Edema right lower leg resolved. Cellulitis right lower leg resolved. correction use of blood thinners Plan: Charge from the wound center follow-up as needed. Continue wearing dry dressing for the next week and compression stockings to protect new skin.
== END 2020-08-08 09:45 | disposition home or self-care (01) ==
LOC: WC 09:00
PROVIDERS: PCP Family Medicine Geriatric Medicine; Visit Provider Nurse Practitioner
DX: T81.31XA Disruption of external operation (surgical) wound, not elsewhere classified, initial encounter (principal); R60.0 Localized edema; T81.89XA Other complications of procedures, not elsewhere classified, initial encounter; Z79.01 Long term (current) use of 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s; L03.115 Cellulitis of right lower limb; R60.9 Edema, unspecified
CPT/HCPCS: 15271; 99213; Q4186; G0463

== ENCOUNTER 2020-08-15 09:55 | Emergency (ER) | payer MEDICARE, OTHER, SELFPAY ==
[2020-08-08 09:41] VITALS: BMI 27.6
[2020-08-15] VITALS (9 sets, daily range): BP systolic 89–150; BP diastolic 55–89; PULSE 63–149; RESP 12–25; TEMP 36.8; O2SAT 93–100; BMI 28.6
--- NOTE | 2020-08-15 10:06 | EKG12_ITS ---
Test Reason : PALPITATIONS Blood Pressure : / mmHG Vent. Rate : 147 BPM Atrial Rate : 294 BPM P-R Int : 000 ms QRS Dur : 104 ms QT Int : 328 ms P-R-T Axes : 000 015 -41 degrees QTc Int : 513 ms Atrial flutter with 2:1 A-V conduction ST & T wave abnormality, consider inferior ischemia Abnormal ECG Confirmed by TRAMAINE CAMACHO, MICKEY ([id number]), clinical editor NIURKA FONTANEZ ([id number]) on 08/17/2020 9:25:16 AM Referred By: TRICE Confirmed By:GHULAM REDD MD
--- NOTE | 2020-08-15 10:06 | RAD_ITS ---
STUDY: X-RAY CHEST REASON FOR EXAM: Female, 80 years old. Chest pain TECHNIQUE: Single AP portable view of the chest. COMPARISON: Comparison is made with prior study dated 05/01/2020. FINDINGS: EKG electrodes are seen. The lungs are clear and expanded. There is no demonstrated pleural abnormality. Normal size heart. Normal mediastinum and arnold. Normal visualized pulmonary arteries. There is atherosclerotic tortuosity of the aortic arch and descending thoracic aorta. Normal visualized thoracic spine. Normal visualized ribs, clavicles, and shoulders. There is no demonstrated abnormality of the visualized soft tissue structures of the upper abdomen. RAD/Chest 1 View (Portable) IMPRESSION: No acute abnormality is seen. Electronically Signed: Andriy Ruiz MD at 11:37 EDT , Service support ,
[2020-08-15] MEDS: Aspirin 81 MG TAB.CHEW 324 MG PO (10:18)
--- NOTE | 2020-08-15 10:19 | ED.DCSUM_ITS ---
- ER Visit Summary Date of Service: 08/15/20 Chief Complaint: Palpitations History of Present Illness: The patient is a [address] Brandt and Dr. Leyva. She has a history of paroxysmal atrial fibrillation and is on Coumadin. She reports that she took her dose this morning. She is also on sotalol. Patient reports that at 6:00 this morning and she went into A. fib. She took an extra 25 mg of metoprolol at 830 and another 12.5 mg at 930 without resolution. She reports that this is actually the second episode of this this week. She had one 2 days ago that lasted approximately 6 hours. Patient denies any chest pain, pressure, or tightness. No nausea, vomiting, diaphoresis, or shortness of breath. She has had an ablation for atrial fibrillation twice at [facility]. She has had a heart catheterization with no stents. Physical Examination: Vitals: 98.2, 89/65, 144, 16, 99% on room air which is not hypoxic. General: Well-nourished and well-developed. Head: Normocephalic atraumatic. Neck: Supple, no lymphadenopathy. No JVD. Nontender. Cardiovascular: Tachycardic regular rhythm with a 2 out of 6 systolic murmur. Respiratory: No respiratory distress. Clear to auscultation bilaterally. Abdominal: Soft, nontender, nondistended, normal bowel sounds. No guarding, rebound, or peritoneal signs. Back: Nontender. Extremities: Nontender, no edema. Skin: Normal color, no rash. Neurologic: Alert and oriented ?3. Cranial nerves II through XII are intact. Normal strength and sensation. Psych: Normal affect. Test Results: EKG is a flutter with 2-1 block at a rate of 147. Nonspecific ST changes. Repeat EKG is sinus at 75 with no ischemic changes. Troponin 0 0.028. INR is 2.1. PTT is 37.3. Chem-7 shows sodium 134, BUN 26, glucose 184. CBC shows segmented neutrophils 82 lymphocytes of 13. TSH is 6.01. Clinical Impression(s) from Imaging Studies Chest X-Ray 08/15/20 10:06 IMPRESSION: No acute abnormality is seen. Electronically Signed: Andriy Ruiz MD at 11:37 EDT , Service support , Emergency Department Course and Treatment: Patient was given aspirin p.o. Her blood pressure is in the 90s systolic. She has been cardioverted multiple times in the past and is sure that it is started 4-1/2 hours ago. She was given etomidate IV and cardioverted at 200 J and converted to sinus rhythm. She tolerated this well. Treatment Plan: Patient was discussed with Dr. Castrejon. Patient will be discharged with instructions to follow-up with her electric crane operator at [facility] within 1 week[address] Call to let Dr. Leyva know how she is doing as well. Return to the emergency department for any worsening symptoms. Disposition: To home in improved and stable condition. Impression: 1. Atrial flutter. 2. Procedural sedation. 3. Cardioversion. 4. Coumadin coagulopathy. 5. Critical care time 30 minutes. This note was generated with [employer] dictation software. It may contain incorrect words, spelling, and punctuation that were not noted in review of the chart prior to signing ED Disposition - Plan for ED Patient: Instructions: ED Atrial Flutter Prescriptions: Ondansetron [Zofran Odt] 4 mg PO Q8H PRN PRN #10 tablet PRN Reason: Nausea Referrals: Sergio Leyva MD [STAFF PHYSICIAN] - As Needed Additional Instructions: Follow-up with your electric crane operator at [facility] within 1 week.
[2020-08-15 10:26] LABS: Absolute Lymphocyte Count 1.24 X10^3/uL (0.83-4.51); Absolute Neutrophil Count 8.1 X10^3/uL (2.0-7.7); Basophil# 0.03 X10^3/uL; Basophil% 0.3 % (0-1); Eosinophil# 0.15 X10^3/uL; Eosinophils% 1.5 % (0-5); Hematocrit 42.7 % (37-47); Hemoglobin 13.5 g/dL (12.0-15.0); Lymphocyte # 1.24 X10^3/ul (4.0); Lymphocyte % 12.6 % (19-41); Mean Corp Hgb Conc 31.6 g/dL (32-36); Mean Corpuscular Hgb 29.2 pg (27.0-32.0); Mean Corpuscular Volume 92.2 fL (81-99); Mean Platelet Vol. 11.4 fl (6.2-12.0); Monocyte# 0.29 X10^3/uL; Monocyte% 2.9 % (0-10); NRBC Flagged by Analyzer 0 % (0-5); Neutrophil # 8.13 X10^3/uL (2.7-7.7); Neutrophil % 82.4 % (47-70); Platelet Count 218 K/mm3 (150-450); Red Blood Count 4.63 M/mm3 (4.2-5.4); White Blood Count 9.9 K/mm3 (4.4-11.0)
[2020-08-15] MEDS: Etomidate 20 MG/10 ML Vial 8 MG IV (10:30)
[2020-08-15 10:34] LABS: International Normalized Ratio 2.1; Partial Thromboplast Time 37.3 Seconds (24.1-36.2); Prothrombin Time (Protime)PT. 23.1 SECONDS (11.7-14.9)
[2020-08-15 10:47] LABS: Anion Gap 4 (5-15); BUN 26 mg/dL (7-18); BUN/Creat Ratio 25.5 RATIO (10-20); Calcium,Total 8.5 mg/dL (8.5-10.1); Chloride 103 mmol/L (98-107); Creatinine, Serum 1.02 mg/dL (0.55-1.02); EST Glomerular Filtration Rate 56 mL/min (>60); Est Glom Filt Rate - Afr Amer 67 mL/min (>60); Glucose 184 mg/dL (74-106); Magnesium 2.6 mg/dL (1.6-2.6); Potassium 4.7 mmol/L (3.5-5.1); Sodium Level 134 mmol/L (136-145); Thyroid Stim Hormone (TSH) 6.01 uIU/mL (0.358-3.74)
--- NOTE | 2020-08-15 11:23 | EKG12_ITS ---
Test Reason : POST CARDIOVERSION Blood Pressure : / mmHG Vent. Rate : 075 BPM Atrial Rate : 075 BPM P-R Int : 200 ms QRS Dur : 092 ms QT Int : 418 ms P-R-T Axes : 038 014 010 degrees QTc Int : 466 ms Normal sinus rhythm Normal ECG Confirmed by TRAMAINE CAMACHO, MICKEY ([id number]), telegraph editor NIURKA FONTANEZ ([id number]) on 08/17/2020 9:27:31 AM Referred By: TRICE Confirmed By:GHULAM REDD MD
[2020-08-15] MEDS: Ondansetron 4 MG/2 ML Vial IV (11:28)
== END 2020-08-15 12:39 | disposition home or self-care (01) ==
LOC: ED 10:20
PROVIDERS: Emergency Provider Emergency Medicine; PCP Family Medicine Geriatric Medicine
DX: I48.92 Unspecified atrial flutter (principal); I48.0 Paroxysmal atrial fibrillation; I10 Essential (primary) hypertension; E78.00 Pure hypercholesterolemia, unspecified; Z79.01 Long term (current) use of 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s; Z86.73 Personal history of transient ischemic attack (TIA), and cerebral infarction without residual deficits; Z79.899 Other long term (current) drug therapy
CPT/HCPCS: 92960; 71045; 80048; 83735; 84443; 84484; 85025; 85610; 85730; 93005; 96361; 96374; 96375; 99284; J7030; A4216; J2405

== ENCOUNTER 2020-08-21 10:02 | Outpatient (RCR) | payer MEDICARE, OTHER, SELFPAY ==
[2020-07-24 11:14] LABS: International Normalized Ratio 2.4; Prothrombin Time (Protime)PT. 25.5 SECONDS (11.7-14.9)
[2020-08-21 10:41] LABS: International Normalized Ratio 2.2; Prothrombin Time (Protime)PT. 23.9 SECONDS (11.7-14.9)
== END 2020-08-21 18:00 | disposition home or self-care (01) ==
LOC: LAB 10:02
PROVIDERS: Family Provider Family Medicine Geriatric Medicine; PCP Family Medicine Geriatric Medicine; Referring Provider Internal Medicine Cardiovascular Disease; Visit Provider Internal Medicine Cardiovascular Disease
DX: I48.0 Paroxysmal atrial fibrillation (principal); I48.92 Unspecified atrial flutter; Z79.01 Long term (current) use of 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s
CPT/HCPCS: 36415; 85610

== ENCOUNTER 2020-09-17 09:06 | Outpatient (RCR) | payer MEDICARE, OTHER, SELFPAY ==
[2020-08-15 09:56] VITALS: BMI 28.6
[2020-09-17 10:25] LABS: International Normalized Ratio 2.9; Prothrombin Time (Protime)PT. 29.4 SECONDS (11.7-14.9)
== END 2020-09-17 18:00 | disposition home or self-care (01) ==
LOC: LAB 09:06
PROVIDERS: Family Provider Family Medicine Geriatric Medicine; PCP Family Medicine Geriatric Medicine; Referring Provider Internal Medicine Cardiovascular Disease; Visit Provider Internal Medicine Cardiovascular Disease
DX: I48.0 Paroxysmal atrial fibrillation (principal); I48.92 Unspecified atrial flutter; Z79.01 Long term (current) use of 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s
CPT/HCPCS: 36415; 85610

== ENCOUNTER 2020-10-02 06:47 | Emergency (ER) | payer MEDICARE, OTHER, SELFPAY ==
[2020-08-15 09:56] VITALS: BMI 28.6
[2020-10-02 06:48] VITALS: BP 108/52; PULSE 133; RESP 18; TEMP 36.2; O2SAT 97; BMI 27.8
--- NOTE | 2020-10-02 06:57 | EKG12_ITS ---
Test Reason : CP Blood Pressure : / mmHG Vent. Rate : 131 BPM Atrial Rate : 138 BPM P-R Int : 000 ms QRS Dur : 090 ms QT Int : 344 ms P-R-T Axes : 000 008 -26 degrees QTc Int : 507 ms Supraventricular tachycardia Nonspecific T wave abnormality Abnormal ECG Confirmed by MARGARET CAMACHO, CAMERON ([id number]), editor managing director NIURKA FONTANEZ ([id number]) on 10/03/2020 9:10:15 AM Referred By: MARIBETH Confirmed By:CAMERON ROBLES MD
--- NOTE | 2020-10-02 06:57 | RAD_ITS ---
STUDY: X-RAY CHEST REASON FOR EXAM: Female, 80 years old. Chest pain. Pacemaker placement. TECHNIQUE: Frontal view of the chest COMPARISON: 08/15/20 FINDINGS: The lungs are clear. There are no pleural effusions. There is no pneumothorax. The heart is normal in size. There is a dual-lead pacemaker in place with one lead overlying the right atrium and one lead overlying the right ventricle. The visualized osseous structures are within normal limits. RAD/Chest 1 View (Portable) IMPRESSION: Satisfactory position of the pacemaker. No pneumothorax. No acute thoracic pathology. Electronically Signed: Jeff Deng MD at 8:07 EDT Tel , Service support ,
--- NOTE | 2020-10-02 07:09 | EDS_ITS ---
HPI History of Present Illness Chief Complaint: Palpitations Informant: patient Narrative Narrative: 80-year-old female with history of paroxysmal A. fib States that she felt herself go into atrial fibrillation last night around 1900 hrs. She took her nightly metoprolol and her sotalol dose. She took an extra metoprolol as well around 0030.She states that normally she can get herself out of A. fib after couple hours but this has been persistent. No syncope. She feels fatigued. She sees Dr. Leyva locally for cardiology. She has had 2 prior ablations.She is on CoumadinAnd she had to hold her dosing for 4 days prior to her pacemaker which was put in on September [address] [place]. [facility] Medical History (Updated 10/02/20 @ 08:[address] 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 lactis 1 ea PO DAILY 03/21/19 [History Last Taken 03/21/19] magnesium oxide 400 mg PO DAILY 03/21/19 [History Last Taken 03/21/19] vitamin A 10,000 unit PO QODAY 03/21/19 [History Last Taken 03/21/19] warfarin 1 mg tablet 3.5 mg PO DAILY tablet 01/11/20 [History Last Taken Unknown] vitamin B complex 1 ea PO QODAY 05/01/20 [History Last Taken Unknown] methenamine hippurate 1 gm PO DAILY 06/14/20 [History Last Taken Unknown] [facility] 1 tab PO DAILY 06/21/20 [History Last Taken Unknown] metoprolol tartrate 12.5 mg PO BID 06/21/20 [History Last Taken Unknown] Allergy/AdvReac Type Severity Reaction Status Date / Time No Known Allergies Allergy Verified 10/02/20 06:53 Family History Father CAD (coronary artery disease) Surgical History History of cardiac radiofrequency ablation (RFA) (~01/15/17) Social History Smoking Status: Never smoker alcohol intake: never substance use type: does not use caffeine: No ROS ROS ED Constitutional Constitutional ED: Denies chills or weight loss Eyes Eyes: Denies change in vision or diplopia ENT ENT ED: Denies ear pain, rhinorrhea or sore throat Cardiovascular Cardiovascular: Reports palpitations; Denies chest pain, orthopnea or racing heartbeat Respiratory/Chest Respiratory/Chest: Denies cough, dyspnea or orthopnea Gastrointestinal Gastrointestinal: Denies abdominal pain, diarrhea, nausea or vomiting Genitourinary Genitourinary ED: Denies dysuria, hematuria or urinary frequency Musculoskeletal Musculoskeletal: Denies arthralgias or myalgias Integumentary Denies abscess or rash Neurologic Neurologic: Denies headache(s) or weakness Psychiatric Psychiatric: Denies anxiety, depression, suicidal ideation or suicidal thoughts Endocrine Endocrinology: Denies polydipsia, polyphagia or polyuria Allergic/Immunologic Allergic/Immunologic ED: Denies mouth swelling, tongue swelling or urticaria EXAM Physical Exam Const Vital Signs: 10/02/20 06:48 10/02/20 07:35 10/02/20 08:09 Temperature 97.1 F L Temperature Source Temporal Pulse Rate 133 H 124 H 60 Respiratory Rate 18 18 18 Blood Pressure 108/52 L 106/70 110/62 Blood Pressure Mean 70 82 78 Pulse Ox 97 97 99 Oxygen Delivery Method Room Air Nasal Cannula Nasal Cannula Oxygen Flow Rate (L/min) 2 2 Positive well nourished and well developed General Appearance ED: well developed HEENT Reports normocephalic, head/scalp atraumatic and moist mucous membranes Eyes PERRL and EOMs intact bilaterally Neck no lymphadenopathy, supple and no JVD Resp normal respiratory effort and clear to auscultation bilaterally Cardio no murmurs Jugular Venous Distention: other Other Details: Irregularly irregular tachycardic GI normal to inspection, nondistended, normoactive bowel sounds and non-tender Palpation: soft Back/Spine no CVA tenderness and normal ROM Extremity normal to inspection General Extremety ED: Negative for edema General Extremity: Negative for edema Neuro oriented x3 and CN's II-XII intact bilaterally Sensorium / Orientation: alert Motor Exam: strength 5/5 throughout Psych mental status grossly normal Mood & Affect: Negative for depressed or tearful Skin no rashes or lesions noted and no wounds MDM MDM MDM Narrative Medical decision making narrative: My interpretation of the patient's single view portable chest x-ray is no acute process. Basic labs were obtained and the patient's potassium sodium and magnesium are normal. Troponin is negative. Hemoglobin 14.2 and she is therapeutic on her INR at 2.2. Patient received a total of 10 mg of IV metoprolol. After which the patient spontaneously converted to sinus rhythm. I spoke with Dr. Leyva and Dr. Salguero. No further medication changes will be made. The patient has an appointment this afternoon in [place] with electrophysiology. Lab Data Attestation: I reviewed the patient's lab results. Labs: Laboratory Results - last 24 hr 10/02/20 10/02/20 10/02/20 06:55 06:55 06:55 WBC 9.8 RBC 4.78 Hgb 14.2 Hct 44.0 MCV 92.1 MCH 29.7 MCHC 32.3 RDW Std Deviation 51.6 H RDW Coeff of Jacque 15.1 H Plt Count 230 MPV 10.8 Immature Gran % (Auto) 0.200 Neut % (Auto) 73.8 H Lymph % (Auto) 17.8 L [place] % (Auto) 5.0 Eos % (Auto) 2.9 Baso % (Auto) 0.3 Absolute Neuts (auto) 7.2 Absolute Lymphs (auto) 1.74 Nucleated RBC % 0 PT 23.2 H INR 2.2 Sodium 140 Potassium 3.9 Chloride 107 Carbon Dioxide 29.0 Anion Gap 4 L BUN 20 H Creatinine 0.89 Estim Creat Clear Calc 48.77 Est GFR (MDRD) Af Amer 79 Est GFR (MDRD) Non-Af 66 BUN/Creatinine Ratio 22.6 H Glucose 116 H Calcium 9.0 Magnesium 2.4 Troponin I < 0.015 Radiography Diagnostic Testing: Radiology Impression Chest X-Ray 10/02/20 06:57 IMPRESSION: Satisfactory position of the pacemaker. No pneumothorax. No acute thoracic pathology. Electronically Signed: Jeff Deng MD at 8:07 EDT Tel , Service support , EKG Initial EKG: Attestation: I personally reviewed and interpreted this EKG as follows: Comments: EKG demonstrates atrial fibrillation at a rate of 131. Follow-up EKG: Attestation: I personally reviewed and interpreted this EKG as follows: Comments: Repeat EKG shows a sinus rhythm Discharge Plan Triage Chief Complaint: Palpitations ED Provider: Andrew Simon Dx/Rx/DC Orders Clinical Impression: Paroxysmal atrial fibrillation, Chronic anticoagulation Instructions: ED AFIB Prescriptions: No Action cholecalciferol (vitamin D3) 2,000 unit capsule 2,000 unit PO QODAY RF: 0 sotalol 80 mg tablet 120 mg PO BID RF: 0 ascorbic acid (vitamin C) 1,000 MG tablet 500 mg PO BID RF: 0 magnesium oxide 400 MG tablet 400 mg PO DAILY RF: 0 vitamin A 10,000 UNIT capsule 10,000 unit PO QODAY RF: 0 L.acidoph, paracasei,B. lactis 1 EACH capsule 1 ea PO DAILY RF: 0 vitamin B complex 1 EACH capsule 1 ea PO QODAY RF: 0 [facility] 1 tab PO DAILY RF: 0 metoprolol tartrate 25 MG tablet 12.5 mg PO BID RF: 0 methenamine hippurate 1 GM tablet 1 gm PO DAILY RF: 0 warfarin 1 mg tablet 3.5 mg PO DAILY RF: 0 Primary Care Provider: Yaya Brandt Chi Referrals: Yaya Brandt Chi, MD [Primary Care Provider] - As Needed Activity Restrictions/Additional Instructions: Follow-up in [place] today as scheduled. Please tell them that you were in the emergency department and we spoke with Dr. Salguero Disposition Disposition: Home, self care
[2020-10-02 07:16] LABS: Absolute Lymphocyte Count 1.74 X10^3/uL (0.83-4.51); Absolute Neutrophil Count 7.2 X10^3/uL (2.0-7.7); Basophil# 0.03 X10^3/uL; Basophil% 0.3 % (0-1); Eosinophil# 0.28 X10^3/uL; Eosinophils% 2.9 % (0-5); Hemoglobin 14.2 g/dL (12.0-15.0); Lymphocyte # 1.74 X10^3/ul (0.83-4.51); Lymphocyte % 17.8 % (19-41); Mean Corp Hgb Conc 32.3 g/dL (32-36); Mean Corpuscular Hgb 29.7 pg (27.0-32.0); Mean Corpuscular Volume 92.1 fL (81-99); Mean Platelet Vol. 10.8 fl (6.2-12.0); Monocyte# 0.49 X10^3/uL; NRBC Flagged by Analyzer 0 % (0-5); Neutrophil # 7.21 X10^3/uL (2.7-7.7); Neutrophil % 73.8 % (47-70); Platelet Count 230 K/mm3 (150-450); RBC Distribution Width CV 15.1 % (11.6-14.6); RBC Distribution Width SD 51.6 fl (35.1-43.9); Red Blood Count 4.78 M/mm3 (4.2-5.4); White Blood Count 9.8 K/mm3 (4.4-11.0)
[2020-10-02 07:17] LABS: International Normalized Ratio 2.2; Prothrombin Time (Protime)PT. 23.2 SECONDS (11.7-14.9)
[2020-10-02] MEDS: Metoprolol Tartrate 5 MG/5 ML Vial IV ×2 (07:21→07:31)
[2020-10-02 07:33] LABS: Anion Gap 4 (5-15); BUN 20 mg/dL (7-18); BUN/Creat Ratio 22.6 RATIO (10-20); Chloride 107 mmol/L (98-107); Creatinine, Serum 0.89 mg/dL (0.55-1.02); EST Glomerular Filtration Rate 66 mL/min (>60); Est Glom Filt Rate - Afr Amer 79 mL/min (>60); Estimated Creatinine Clearance 48.77 ml/min; Glucose 116 mg/dL (74-106); Magnesium 2.4 mg/dL (1.6-2.6); Potassium 3.9 mmol/L (3.5-5.1); Sodium Level 140 mmol/L (136-145)
[2020-10-02 07:35] VITALS: BP 106/70; PULSE 124; RESP 18; O2SAT 97
[2020-10-02 08:09] VITALS: BP 110/62; PULSE 60; RESP 18; O2SAT 99
--- NOTE | 2020-10-02 08:09 | EKG12_ITS ---
Test Reason : REPEAT Blood Pressure : / mmHG Vent. Rate : 061 BPM Atrial Rate : 061 BPM P-R Int : 192 ms QRS Dur : 098 ms QT Int : 446 ms P-R-T Axes : 066 -05 -02 degrees QTc Int : 448 ms Suspect unspecified pacemaker failure Sinus rhythm with Premature supraventricular complexes Nonspecific T wave abnormality Abnormal ECG Confirmed by MARGARET CAMACHO, CAMERON ([id number]), commissioning editor NIURKA FONTANEZ ([id number]) on 10/03/2020 9:10:26 AM Referred By: MARIBETH Confirmed By:CAMERON ROBLES MD
--- NOTE | 2020-10-02 08:30 | NURSING ---
CALLED DR SUNIL LOPEZ AT [facility] [phone]
[2020-10-02 08:39] VITALS: BP 102/69; PULSE 63; RESP 18; O2SAT 100
== END 2020-10-02 08:59 | disposition home or self-care (01) ==
PROVIDERS: Emergency Provider Emergency Medicine; PCP Family Medicine Geriatric Medicine
DX: I48.0 Paroxysmal atrial fibrillation (principal); I10 Essential (primary) hypertension; E78.5 Hyperlipidemia, unspecified; Z79.01 Long term (current) use of 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s; Z86.73 Personal history of transient ischemic attack (TIA), and cerebral infarction without residual deficits; Z79.899 Other long term (current) drug therapy
CPT/HCPCS: 71045; 80048; 83735; 84484; 85025; 85610; 93005; 96374; 99285; J7030; A4216

== ENCOUNTER → 2020-10-04 15:19 | Outpatient (CLI) | payer MEDICARE, OTHER, SELFPAY ==
[2020-10-02 06:48] VITALS: BMI 27.8
[2020-10-04 17:45] LABS: Vitamin D,25 Hydroxy 57.4 ng/mL
[2020-10-04 17:55] LABS: ALB/GLOB Ratio 0.8 RATIO (0.9-2.4); AST(SGOT) 26 U/L (15-37); Alanine Aminotransfer ALT/SGPT 30 U/L (13-56); Albumin, Serum 3.1 g/dL (3.2-5.0); Alkaline Phosphatase 105 U/L (45-117); Anion Gap 6 (5-15); BUN 23 mg/dL (7-18); BUN/Creat Ratio 18.4 RATIO (10-20); Calcium,Total 8.1 mg/dL (8.5-10.1); Chloride 105 mmol/L (98-107); Creatinine, Serum 1.25 mg/dL (0.55-1.02); EST Glomerular Filtration Rate 44 mL/min (>60); Est Glom Filt Rate - Afr Amer 53 mL/min (>60); Globulin 3.9 g/dL (2.2-4.2); Glucose 104 mg/dL (74-106); Potassium 4.2 mmol/L (3.5-5.1); Sodium Level 140 mmol/L (136-145); Thyroid Stim Hormone (TSH) 2.89 uIU/mL (0.358-3.74)
[2020-10-04 18:51] LABS: Absolute Lymphocyte Count 1.47 X10^3/uL (0.83-4.51); Absolute Neutrophil Count 5.1 X10^3/uL (2.0-7.7); Basophil# 0.02 X10^3/uL; Basophil% 0.3 % (0-1); Eosinophil# 0.32 X10^3/uL; Eosinophils% 4.4 % (0-5); Hematocrit 40.5 % (37-47); Hemoglobin 12.7 g/dL (12.0-15.0); Lymphocyte # 1.47 X10^3/ul (0.83-4.51); Lymphocyte % 20.1 % (19-41); Mean Corp Hgb Conc 31.4 g/dL (32-36); Mean Corpuscular Hgb 29.5 pg (27.0-32.0); Mean Platelet Vol. 11.1 fl (6.2-12.0); Monocyte# 0.43 X10^3/uL; Monocyte% 5.9 % (0-10); NRBC Flagged by Analyzer 0 % (0-5); Neutrophil # 5.07 X10^3/uL (2.7-7.7); Platelet Count 218 K/mm3 (150-450); RBC Distribution Width CV 15.3 % (11.6-14.6); RBC Distribution Width SD 53.2 fl (35.1-43.9); Red Blood Count 4.31 M/mm3 (4.2-5.4); White Blood Count 7.3 K/mm3 (4.4-11.0)
== END ==
PROVIDERS: PCP Family Medicine Geriatric Medicine; Visit Provider Family Medicine Geriatric Medicine
DX: I10 Essential (primary) hypertension (principal); E55.9 Vitamin D deficiency, unspecified
CPT/HCPCS: 36415; 80053; 82306; 84443; 85025

== ENCOUNTER 2020-10-08 07:32 | Emergency (ER) | payer MEDICARE, OTHER, SELFPAY ==
[2020-10-08 07:33] VITALS: BP 105/76; PULSE 129; RESP 16; TEMP 36.8; O2SAT 97; BMI 27.4
--- NOTE | 2020-10-08 08:02 | EKG12_ITS ---
Test Reason : PALPITATIONS Blood Pressure : / mmHG Vent. Rate : 127 BPM Atrial Rate : 131 BPM P-R Int : 000 ms QRS Dur : 098 ms QT Int : 358 ms P-R-T Axes : 000 009 -40 degrees QTc Int : 520 ms Accelerated Junctional rhythm Nonspecific T wave abnormality Abnormal ECG Confirmed by MARGARET CAMACHO, CAMERON ([id number]), editorial writer NIURKA FONTANEZ ([id number]) on 10/09/2020 10:04:37 AM Referred By: MICHELLE Confirmed By:CAMERON ROBLES MD
--- NOTE | 2020-10-08 08:02 | RAD_ITS ---
STUDY: X-RAY CHEST REASON FOR EXAM: Female, 80 years old. Acute substernal chest pain TECHNIQUE: Single AP portable view of the chest. COMPARISON: 10/02/2020 FINDINGS: EKG leads overlie the chest. Stable appearance of a left subclavian pacemaker The lungs are clear and expanded. There is no demonstrated pleural abnormality. Normal size heart. Normal mediastinum and arnold. Normal visualized pulmonary arteries. Normal visualized aortic arch and descending thoracic aorta. Normal visualized thoracic spine. Normal visualized ribs, clavicles, and shoulders. There is no demonstrated abnormality of the visualized soft tissue structures of the upper abdomen. RAD/Chest 1 View (Portable) IMPRESSION: No acute pulmonary process, no interval change Electronically Signed: Bear Pond MD at 8:37 EDT , Service support ,
--- NOTE | 2020-10-08 08:03 | EX.ED.DYSGE1 ---
HPI History of Present Illness Chief Complaint: Palpitations Narrative Narrative: 80-year-old female presenting with palpitations. She states that she started having palpitations last week and was seen in the ED. She states that she was discharged home and the palpitations have been intermittent since then. She states she has a history of atrial fibrillation and ablations x2. She states she had a pacemaker placed in September. Patient states she is a little bit lightheaded with her palpitations. She denies chest pain or shortness of breath. Patient states that she is scheduled to see Dr. Leyva this morning however she cannot make it due to lightheadedness and palpitations. Patient states she is anticoagulated on Coumadin. She denies black or bloody stools. Patient states she normally could get out of her A. fib by taking extra metoprolol however this did not work. She states that her palpitations had resolved but however at 2 in the morning when she rolled over she started to have them again. Is been consistent since then. 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 lactis 1 ea PO DAILY 03/21/19 [History Last Taken 03/21/19] magnesium oxide 400 mg PO DAILY 03/21/19 [History Last Taken 03/21/19] vitamin A 10,000 unit PO QODAY 03/21/19 [History Last Taken 10/28/19] warfarin 1 mg tablet 3.5 mg PO DAILY tablet 01/11/20 [History Last Taken Unknown] vitamin B complex 1 ea PO QODAY 05/01/20 [History Last Taken Unknown] methenamine hippurate 1 gm PO DAILY 06/14/20 [History Last Taken Unknown] [facility] 1 tab PO DAILY 06/21/20 [History Last Taken Unknown] metoprolol tartrate 12.5 mg PO BID 06/21/20 [History Last Taken Unknown] Allergy/AdvReac Type Severity Reaction Status Date / Time No Known Allergies Allergy Verified 10/08/20 07:33 Family History Father CAD (coronary artery disease) Surgical History History of cardiac radiofrequency ablation (RFA) (~01/15/17) Social History Smoking Status: Never smoker alcohol intake: never substance use type: does not use caffeine: No ROS ROS ED Constitutional Constitutional ED: Denies chills, fever(s) or sweats Eyes Eyes: Denies blurry vision or change in vision ENT ENT ED: Denies ear pain, rhinorrhea or sore throat Cardiovascular Cardiovascular: Reports palpitations, racing heartbeat and other Details: Lightheadedness ; Denies chest pain Respiratory/Chest Respiratory/Chest: Denies cough, dyspnea or sputum Gastrointestinal Gastrointestinal: Denies abdominal pain, constipation, diarrhea or vomiting Genitourinary Genitourinary ED: Denies dysuria, hematuria or urinary frequency Musculoskeletal Musculoskeletal: Denies arthralgias, myalgias or neck pain Integumentary Denies abscess, Abrasions or rash Neurologic Neurologic: Denies headache(s), paresthesias or weakness Psychiatric Psychiatric: Denies anxiety, depression, suicidal ideation or suicidal thoughts Endocrine Endocrinology: Denies polydipsia or polyuria EXAM Physical Exam Const Vital Signs: 10/08/20 07:33 10/08/20 08:04 10/08/20 08:05 Temperature 98.3 F Temperature Source Temporal Pulse Rate 129 H 127 H Respiratory Rate 16 18 Blood Pressure 105/76 Blood Pressure Mean 85 Pulse Ox 97 96 96 Oxygen Delivery Method Room Air Room Air Room Air 10/08/20 09:59 Temperature Temperature Source Pulse Rate 132 H Respiratory Rate 17 Blood Pressure 126/93 H Blood Pressure Mean 104 Pulse Ox 98 Oxygen Delivery Method Room Air Positive well nourished General Appearance ED: NAD; Negative for pallor HEENT Reports normocephalic, head/scalp atraumatic and moist mucous membranes Negative for trauma Eyes PERRL and EOMs intact bilaterally Neck no lymphadenopathy and supple Chest Wall inspection of chest normal and palpation of chest normal Resp normal respiratory effort and clear to auscultation bilaterally Auscultation: Negative for rales, rhonchi or wheezes Cardio regular rhythm Rate: tachycardic GI normal to inspection, nondistended, normoactive bowel sounds and non-distended Auscultation: normoactive bowel sounds Palpation: soft Narrative: Deferred Back/Spine no CVA tenderness General Back: Negative for CVA tenderness Cervical Spine: Negative for cervical spine tenderness Extremity normal to inspection General Extremety ED: Yes edema and tenderness General Extremity: edema Neuro oriented x3 and CN's II-XII intact bilaterally Sensorium / Orientation: alert Motor Exam: strength 5/5 throughout Psych mental status grossly normal Attitude: No agitated Skin no rashes or lesions noted and no wounds General Skin Exam: Negative for jaundice or pallor MDM MDM MDM Narrative Medical decision making narrative: 80-year-old female with history of atrial fibrillation anticoagulated on Coumadin presenting with palpitations. She does have a new pacemaker that was placed in September. She has been seen in the ED previously for breakthrough palpitations. Her fitter and turner is Dr. Leyva. She also sees an communications associate at [facility]. EKG performed on arrival shows sinus tachycardia at [address] elevations or depressions as interpreted by myself. Chest x-ray one-view portable interpreted by myself to show no acute cardiopulmonary process and radiology does agree. Patient's hemoglobin is 13.3, hematocrit 42.1, platelets 211. INR is therapeutic at 2.6. Electrolytes and renal function are normal. BNP is elevated at over 800 however there is no sign of heart failure based on physical exam and chest x-ray. Patient spontaneously converted to a paced rhythm at [address] elevations or depression as interpreted by myself on the second EKG. I spoke with Dr. Leyva felt patient was stable to be discharged home. He stated that the only thing he would do would changes to increase her metoprolol to 25 mg twice daily. She states that she is already taking 25 mg twice daily. He also recommended that she follow-up with her communications associate as he believes she may need an ablation. Discussed all findings and plan with the patient and she is safe to be discharged home at this time. Impression: 1. Palpitations Lab Data Attestation: I reviewed the patient's lab results. Labs: Laboratory Results - last 24 hr 10/08/20 10/08/20 10/08/20 08:10 08:10 08:10 WBC 7.6 RBC 4.57 Hgb 13.3 Hct 42.1 MCV 92.1 MCH 29.1 MCHC 31.6 L RDW Std Deviation 51.3 H RDW Coeff of Jacque 15.2 H Plt Count 211 MPV 10.8 Immature Gran % (Auto) 0.400 Neut % (Auto) 75.5 H Lymph % (Auto) 16.9 L [place] % (Auto) 4.3 Eos % (Auto) 2.5 Baso % (Auto) 0.4 Absolute Neuts (auto) 5.8 Absolute Lymphs (auto) 1.29 Nucleated RBC % 0 PT 26.9 H INR 2.6 Sodium 140 Potassium 3.8 Chloride 110 H Carbon Dioxide 26.0 Anion Gap 4 L BUN 23 H Creatinine 0.98 Estim Creat Clear Calc 44.29 Est GFR (MDRD) Af Amer 71 Est GFR (MDRD) Non-Af 58 L BUN/Creatinine Ratio 23.5 H Glucose 131 H Calcium 8.8 Troponin I < 0.015 B-Natriuretic Peptide 10/08/20 08:10 WBC RBC Hgb Hct MCV MCH MCHC RDW Std Deviation RDW Coeff of Jacque Plt Count MPV Immature Gran % (Auto) Neut % (Auto) Lymph % (Auto) [place] % (Auto) Eos % (Auto) Baso % (Auto) Absolute Neuts (auto) Absolute Lymphs (auto) Nucleated RBC % PT INR Sodium Potassium Chloride Carbon Dioxide Anion Gap BUN Creatinine Estim Creat Clear Calc Est GFR (MDRD) Af Amer Est GFR (MDRD) Non-Af BUN/Creatinine Ratio Glucose Calcium Troponin I B-Natriuretic Peptide 819.6 H Radiography Diagnostic Testing: Radiology Impression Chest X-Ray 10/08/20 08:02 IMPRESSION: No acute pulmonary process, no interval change Electronically Signed: Bear Pond MD at 8:37 EDT , Service support , Discharge Plan Triage Chief Complaint: Palpitations ED Provider: Vinod Klein Dx/Rx/DC Orders Instructions: ED Palpitations Prescriptions: No Action cholecalciferol (vitamin D3) 2,000 unit capsule 2,000 unit PO QODAY RF: 0 sotalol 80 mg tablet 120 mg PO BID RF: 0 ascorbic acid (vitamin C) 1,000 MG tablet 500 mg PO BID RF: 0 magnesium oxide 400 MG tablet 400 mg PO DAILY RF: 0 vitamin A 10,000 UNIT capsule 10,000 unit PO QODAY RF: 0 L.acidoph, theodora,B. lactis 1 EACH capsule 1 ea PO DAILY RF: 0 vitamin B complex 1 EACH capsule 1 ea PO QODAY RF: 0 [facility] 1 tab PO DAILY RF: 0 metoprolol tartrate 25 MG tablet 12.5 mg PO BID RF: 0 methenamine hippurate 1 GM tablet 1 gm PO DAILY RF: 0 warfarin 1 mg tablet 3.5 mg PO DAILY RF: 0 Primary Care Provider: Yaya Brandt Chi Referrals: Yaya Brandt Chi, MD [Primary Care Provider] - Disposition Disposition: Home, self care
[2020-10-08 08:04] VITALS: PULSE 127; RESP 18; O2SAT 96
[2020-10-08 08:05] VITALS: O2SAT 96
[2020-10-08] MEDS: Aspirin 81 MG TAB.CHEW 324 MG PO (08:12)
[2020-10-08] MEDS: dilTIAZem 25 MG/5 ML Vial 10 MG IV BOLUS (08:16)
[2020-10-08 08:26] LABS: Absolute Lymphocyte Count 1.29 X10^3/uL (0.83-4.51); Absolute Neutrophil Count 5.8 X10^3/uL (2.0-7.7); Basophil# 0.03 X10^3/uL; Basophil% 0.4 % (0-1); Eosinophil# 0.19 X10^3/uL; Eosinophils% 2.5 % (0-5); Hematocrit 42.1 % (37-47); Hemoglobin 13.3 g/dL (12.0-15.0); Lymphocyte # 1.29 X10^3/ul (0.83-4.51); Lymphocyte % 16.9 % (19-41); Mean Corp Hgb Conc 31.6 g/dL (32-36); Mean Corpuscular Hgb 29.1 pg (27.0-32.0); Mean Corpuscular Volume 92.1 fL (81-99); Mean Platelet Vol. 10.8 fl (6.2-12.0); Monocyte# 0.33 X10^3/uL; Monocyte% 4.3 % (0-10); NRBC Flagged by Analyzer 0 % (0-5); Neutrophil # 5.75 X10^3/uL (2.7-7.7); Neutrophil % 75.5 % (47-70); Platelet Count 211 K/mm3 (150-450); RBC Distribution Width CV 15.2 % (11.6-14.6); RBC Distribution Width SD 51.3 fl (35.1-43.9); Red Blood Count 4.57 M/mm3 (4.2-5.4); White Blood Count 7.6 K/mm3 (4.4-11.0)
[2020-10-08 08:31] LABS: International Normalized Ratio 2.6; Prothrombin Time (Protime)PT. 26.9 SECONDS (11.7-14.9)
[2020-10-08 08:42] LABS: Anion Gap 4 (5-15); BUN 23 mg/dL (7-18); BUN/Creat Ratio 23.5 RATIO (10-20); Calcium,Total 8.8 mg/dL (8.5-10.1); Chloride 110 mmol/L (98-107); Creatinine, Serum 0.98 mg/dL (0.55-1.02); EST Glomerular Filtration Rate 58 mL/min (>60); Est Glom Filt Rate - Afr Amer 71 mL/min (>60); Estimated Creatinine Clearance 44.29 ml/min; Glucose 131 mg/dL (74-106); Potassium 3.8 mmol/L (3.5-5.1); Sodium Level 140 mmol/L (136-145)
[2020-10-08 08:48] LABS: BNP,B-Type NATRIURETIC PEPTIDE 819.6 pg/mL (0-100)
[2020-10-08 09:59] VITALS: BP 126/93; PULSE 132; RESP 17; O2SAT 98
--- NOTE | 2020-10-08 10:48 | EKG12_ITS ---
Test Reason : REPEAT Blood Pressure : / mmHG Vent. Rate : 060 BPM Atrial Rate : 060 BPM P-R Int : 226 ms QRS Dur : 090 ms QT Int : 458 ms P-R-T Axes : 082 -03 013 degrees QTc Int : 458 ms Atrial-paced rhythm with prolonged AV conduction Abnormal ECG Confirmed by MARGARET CAMACHO, CAMERON ([id number]), newspaper editor managing NIURKA FONTANEZ ([id number]) on 10/09/2020 10:04:48 AM Referred By: MICHELLE Confirmed By:CAMERON ROBLES MD
[2020-10-08 11:52] VITALS: BP 121/78; PULSE 64; RESP 20; O2SAT 97
== END 2020-10-08 11:53 | disposition home or self-care (01) ==
PROVIDERS: Emergency Provider Student in an Organized Health Care Education/Training Program; PCP Family Medicine Geriatric Medicine
DX: R00.2 Palpitations (principal); I48.92 Unspecified atrial flutter; I10 Essential (primary) hypertension; E78.5 Hyperlipidemia, unspecified; I48.0 Paroxysmal atrial fibrillation; Z86.73 Personal history of transient ischemic attack (TIA), and cerebral infarction without residual deficits; Z95.0 Presence of cardiac pacemaker; Z79.01 Long term (current) use of 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s; Z79.899 Other long term (current) drug therapy
CPT/HCPCS: 71045; 80048; 83880; 84484; 85025; 85610; 93005; 96374; 99284; A4216

== ENCOUNTER → 2020-10-12 10:46 | Outpatient (CLI) | payer MEDICARE, OTHER, SELFPAY ==
[2020-10-08 07:33] VITALS: BMI 27.4
[2020-10-12 12:30] LABS: Anion Gap 4 (5-15); BUN 17 mg/dL (7-18); BUN/Creat Ratio 21.1 RATIO (10-20); Calcium,Total 8.5 mg/dL (8.5-10.1); Chloride 106 mmol/L (98-107); EST Glomerular Filtration Rate 73 mL/min (>60); Est Glom Filt Rate - Afr Amer 89 mL/min (>60); Glucose 83 mg/dL (74-106); Sodium Level 140 mmol/L (136-145)
== END ==
PROVIDERS: PCP Family Medicine Geriatric Medicine; Visit Provider Family Medicine Geriatric Medicine
DX: E86.0 Dehydration (principal)
CPT/HCPCS: 36415; 80048

== ENCOUNTER 2020-10-13 08:36 | Outpatient (RCR) | payer MEDICARE, OTHER, SELFPAY ==
[2020-08-15 09:56] VITALS: BMI 28.6
[2020-10-01 10:47] LABS: International Normalized Ratio 2.2; Prothrombin Time (Protime)PT. 23.7 SECONDS (11.7-14.9)
[2020-10-13 09:24] LABS: International Normalized Ratio 2.8; Prothrombin Time (Protime)PT. 28.4 SECONDS (11.7-14.9)
== END 2020-10-13 18:00 | disposition home or self-care (01) ==
LOC: LAB 08:36
PROVIDERS: Family Provider Family Medicine Geriatric Medicine; PCP Family Medicine Geriatric Medicine; Referring Provider Internal Medicine Cardiovascular Disease; Visit Provider Internal Medicine Cardiovascular Disease
DX: I48.0 Paroxysmal atrial fibrillation (principal); I48.92 Unspecified atrial flutter; Z79.01 Long term (current) use of 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s
CPT/HCPCS: 36415; 85610

== ENCOUNTER 2020-11-07 09:38 | Outpatient (RCR) | payer MEDICARE, OTHER, SELFPAY ==
[2020-10-24 10:29] LABS: International Normalized Ratio 2.5
[2020-11-07 10:33] LABS: International Normalized Ratio 2.7; Prothrombin Time (Protime)PT. 27.5 SECONDS (11.7-14.9)
== END 2020-11-07 18:00 | disposition home or self-care (01) ==
LOC: LAB 09:38
PROVIDERS: Family Provider Family Medicine Geriatric Medicine; PCP Family Medicine Geriatric Medicine; Referring Provider Internal Medicine Cardiovascular Disease; Visit Provider Internal Medicine Cardiovascular Disease
DX: I48.0 Paroxysmal atrial fibrillation (principal); I48.92 Unspecified atrial flutter; Z79.01 Long term (current) use of 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s
CPT/HCPCS: 36415; 85610

== ENCOUNTER 2020-12-17 09:37 | Outpatient (RCR) | payer MEDICARE, OTHER, SELFPAY ==
[2020-11-29 11:50] LABS: International Normalized Ratio 2.8
[2020-12-17 10:38] LABS: International Normalized Ratio 3.1
== END 2020-12-17 18:00 | disposition home or self-care (01) ==
LOC: LAB 09:37
PROVIDERS: Family Provider Family Medicine Geriatric Medicine; PCP Family Medicine Geriatric Medicine; Referring Provider Internal Medicine Cardiovascular Disease; Visit Provider Internal Medicine Cardiovascular Disease
DX: I48.0 Paroxysmal atrial fibrillation (principal); I48.92 Unspecified atrial flutter; Z79.01 Long term (current) use of 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s
CPT/HCPCS: 36415; 85610

== ENCOUNTER → 2021-01-18 10:46 | Outpatient (CLI) | payer MEDICARE, OTHER, SELFPAY ==
--- NOTE | 2021-01-18 10:49 | ECHOD_ITS ---
Reason For Study: PULMONARY HTN Procedure This was a 2D Doppler, Color Flow transthoracic echocardiogram. The exam was of adequate technical quality. Exam performed in department. Left Ventricle Normal LV size. Left ventricular systolic function is normal. The estimated ejection fraction is 65 %. There is evidence of diastolic dysfunction. No regional wall motion abnormalities noted. Right Ventricle Normal RV size. ICD or pacer leads identified within the right ventricle. Normal systolic function. Atria The left atrium is severely enlarged. The right atrium is mildly enlarged. ICD or pacer leads identified within the right atrium. No doppler evidence for ASD. Mitral Valve There is mild to moderate mitral annular calcification. Extension of the mitral annular calcification on the base of the posterior mitral valve leaflet. Moderate (2+) mitral valve insufficiency. Tricuspid Valve Normal tricuspid valve. Mild tricuspid valve insufficiency. Right ventricular systolic pressure estimated to be 26 mmHg. Aortic Valve Trisinus/trileaflet aortic valve. Mild focal aortic valve calcification. Mild aortic stenosis. Mild (1+) aortic valve insufficiency. Pulmonic Valve The pulmonic valve is not well visualized. Great Vessels Normal sized aortic root. Pericardium/Pleural No pericardial effusion. MMode/2D Measurements & Calculations LVIDd: 4.8 cm IVSd: 1.1 cm LVOT diam: 2.0 cm LVIDs: 3.6 cm LVPWd: 1.1 cm LVOT area: 3.1 cm2 RVDd: 3.8 cm FS: 26.3 % Ao root diam: 3.1 cm LAV(MOD-bp): 95.5 ml LVAd ap4: 26.1 cm2 LAV(MOD-bp) Indexed: 51.2 ml/m2 LVLd ap4: 6.9 cm LAV(MOD-sp2): 87.3 ml EDV(MOD-sp4): 83.7 ml LAV(MOD-sp4): 96.1 ml EDV(sp4-el): 83.9 ml LVAs ap4: 17.6 cm2 LVLs ap4: 6.1 cm ESV(MOD-sp4): 43.8 ml ESV(sp4-el): 43.1 ml EF(MOD-sp4): 47.6 % EF(sp4-el): 48.6 % SV(MOD-sp4): 39.9 ml SV(sp4-el): 40.8 ml LA A4 area: 28.0 cm2 LA dimension(2D): 4.8 cm RA A4 area: 24.0 cm2 Time Measurements MV dec time: 0.19 sec Doppler Measurements & Calculations MV E max zane: 76.7 cm/sec Lat Peak E' Zane: 6.8 cm/sec Med Peak E' Zaen: 5.1 cm/sec E/E' lat: 11.3 E/E' med: 15.1 Ao V2 max: 153.4 cm/sec AI max zane: 470.2 cm/sec LV V1 max: 74.6 cm/sec Ao max P.4 mmHg AI max P.4 mmHg LV V1 max P.2 mmHg Ao V2 mean: 113.1 cm/sec LV V1 mean P.2 mmHg Ao mean P.6 mmHg AI dec slope: 225.5 cm/sec2 LV V1 mean: 51.0 cm/sec Ao V2 VTI: 29.1 cm AI P1/2t: 610.7 msec LV V1 VTI: 15.0 cm IVON(I,D): 1.6 cm2 IVON(V,D): 1.5 cm2 SV(LVOT): 46.7 ml PA V2 max: 61.3 cm/sec TR max zane: 241.3 cm/sec TR max P.3 mmHg ECHO/Echo Complete Interpretation Summary Left ventricular systolic function is normal. The estimated ejection fraction is 65 %. The left atrium is severely enlarged. The right atrium is mildly enlarged. There is mild to moderate mitral annular calcification. Extension of the mitral annular calcification on the base of the posterior mitr al valve leaflet. Moderate (2+) mitral valve insufficiency. Mild tricuspid valve insufficiency. Mild aortic stenosis. Mild (1+) aortic valve insufficiency. Right ventricular systolic pressure estimated to be 26 mmHg. There is evidence of diastolic dysfunction. ICD or pacer leads identified within the right atrium ICD or pacer leads identified within the right ventricle. Ordering Physician: Lul Abad Referring Physician: DELFINO ROTH Performed By: Heather Fuentes RDCS
== END ==
PROVIDERS: PCP Family Medicine Geriatric Medicine; Referring Provider Internal Medicine Pulmonary Disease; Visit Provider Internal Medicine Pulmonary Disease
DX: I27.0 Primary pulmonary hypertension (principal)
CPT/HCPCS: 93306

== ENCOUNTER 2021-01-22 09:49 | Outpatient (RCR) | payer MEDICARE, OTHER, SELFPAY ==
[2021-01-02 10:07] LABS: International Normalized Ratio 2.4; Prothrombin Time (Protime)PT. 25.1 SECONDS (11.7-14.9)
[2021-01-22 10:24] LABS: International Normalized Ratio 2.9; Prothrombin Time (Protime)PT. 29.4 SECONDS (11.7-14.9)
== END 2021-01-22 18:00 | disposition home or self-care (01) ==
LOC: LAB 09:49
PROVIDERS: Family Provider Family Medicine Geriatric Medicine; PCP Family Medicine Geriatric Medicine; Referring Provider Internal Medicine Cardiovascular Disease; Visit Provider Internal Medicine Cardiovascular Disease
DX: I48.0 Paroxysmal atrial fibrillation (principal); I48.92 Unspecified atrial flutter; Z79.01 Long term (current) use of 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s
CPT/HCPCS: 36415; 85610

== ENCOUNTER 2021-02-14 10:04 | Outpatient (RCR) | payer MEDICARE, OTHER, SELFPAY ==
[2021-01-22 20:03] VITALS: BMI 27.4
[2021-02-14 11:15] LABS: Prothrombin Time (Protime)PT. 30.3 SECONDS (11.7-14.9)
== END 2021-02-14 18:00 | disposition home or self-care (01) ==
LOC: LAB 10:04
PROVIDERS: Family Provider Family Medicine Geriatric Medicine; PCP Family Medicine Geriatric Medicine; Referring Provider Internal Medicine Cardiovascular Disease; Visit Provider Internal Medicine Cardiovascular Disease
DX: I48.0 Paroxysmal atrial fibrillation (principal); I48.92 Unspecified atrial flutter; Z79.01 Long term (current) use of 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s
CPT/HCPCS: 36415; 85610

== ENCOUNTER 2021-03-12 10:26 | Outpatient (RCR) | payer MEDICARE, OTHER, SELFPAY ==
[2021-02-21 20:20] VITALS: BMI 27.4
[2021-03-12 11:07] LABS: International Normalized Ratio 2.9; Prothrombin Time (Protime)PT. 29.5 SECONDS (11.7-14.9)
== END 2021-03-24 03:35 | disposition home or self-care (01) ==
LOC: LAB 10:26
PROVIDERS: Family Provider Family Medicine Geriatric Medicine; PCP Family Medicine Geriatric Medicine; Referring Provider Internal Medicine Cardiovascular Disease; Visit Provider Internal Medicine Cardiovascular Disease
DX: I48.0 Paroxysmal atrial fibrillation (principal); I48.92 Unspecified atrial flutter; Z79.01 Long term (current) use of 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s
CPT/HCPCS: 36415; 85610

== ENCOUNTER 2021-04-09 10:13 | Outpatient (RCR) | payer MEDICARE, OTHER, SELFPAY ==
[2021-03-24 03:35] VITALS: BMI 27.4
[2021-04-09 11:03] LABS: International Normalized Ratio 2.8; Prothrombin Time (Protime)PT. 28.8 SECONDS (11.7-14.9)
== END 2021-04-23 18:00 | disposition home or self-care (01) ==
LOC: LAB 10:13
PROVIDERS: Family Provider Family Medicine Geriatric Medicine; PCP Family Medicine Geriatric Medicine; Referring Provider Internal Medicine Cardiovascular Disease; Visit Provider Internal Medicine Cardiovascular Disease
DX: I48.0 Paroxysmal atrial fibrillation (principal); I48.92 Unspecified atrial flutter; Z79.01 Long term (current) use of 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s
CPT/HCPCS: 36415; 85610

== ENCOUNTER 2021-05-07 09:51 | Outpatient (RCR) | payer MEDICARE, OTHER, SELFPAY ==
[2021-04-24 02:15] VITALS: BMI 27.4
[2021-05-07 10:52] LABS: International Normalized Ratio 2.8; Prothrombin Time (Protime)PT. 28.5 SECONDS (11.7-14.9)
== END 2021-05-25 18:00 | disposition home or self-care (01) ==
LOC: LAB 09:51
PROVIDERS: Family Provider Family Medicine Geriatric Medicine; PCP Family Medicine Geriatric Medicine; Referring Provider Internal Medicine Cardiovascular Disease; Visit Provider Internal Medicine Cardiovascular Disease
DX: I48.0 Paroxysmal atrial fibrillation (principal); I48.92 Unspecified atrial flutter; Z79.01 Long term (current) use of 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s
CPT/HCPCS: 36415; 85610

== ENCOUNTER 2021-06-06 09:47 | Outpatient (RCR) | payer MEDICARE, OTHER, SELFPAY ==
[2021-05-26 04:03] VITALS: BMI 27.4
[2021-06-06 10:23] LABS: International Normalized Ratio 2.7
== END 2021-06-24 18:00 | disposition home or self-care (01) ==
LOC: LAB 09:47
PROVIDERS: Family Provider Family Medicine Geriatric Medicine; PCP Family Medicine Geriatric Medicine; Referring Provider Internal Medicine Cardiovascular Disease; Visit Provider Internal Medicine Cardiovascular Disease
DX: I48.0 Paroxysmal atrial fibrillation (principal); I48.92 Unspecified atrial flutter; Z79.01 Long term (current) use of 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s
CPT/HCPCS: 36415; 85610

== ENCOUNTER 2021-07-01 17:44 | Outpatient (CLI) | payer MEDICARE, OTHER, SELFPAY ==
--- NOTE | 2021-07-01 | LES_PTH ---
PATIENT: PORTILLO NGUYEN [facility] U#:[id number] AGE/SX: 81/F ROOM: RE07/01/[address]: Dr. Chad Sawyer MD : 1940 BED: DIS: 07/01/2021 SPEC #: [id number] RECD: 07/01/21 17:44 STATUS: SYL HILLIARD #: [id number] JANICE: 07/01/21 00:[address]: Chad Sawyer DEPT: SURGICAL PATHOLOGY RECD BY: Payam Haile Tissues: Skin of eyelid, NOS Procedures: Surgery Specimen Level IV HEADER OPERATION: Excision of left upper lid conjunctival lesion PRE-OP DIAGNOSIS: Conjunctival lesion, left upper lid, possible myogenic granuloma TISSUE SUBMITTED: Left upper lid conjunctival lesion MICROSCOPIC DIAGNOSIS Left upper lid conjunctival lesion, excision: Acute and chronic inflammation, granulation tissue reaction and hemorrhage. Negative for malignancy. See comment. TOVA:teena 07/03/2021 COMMENT Clinical correlation and appropriate follow up are necessary. MICROSCOPIC DESCRIPTION Slides are reviewed. GROSS DESCRIPTION Received is one container labeled with the patient's name and not further designated. The specimen consists of a piece of kenyon-brown skin measuring 0.1 x 0.1 x <0.1 cm. The entire specimen is submitted in one cassette. / SJ:rg 07/02/2021 :5 CPT: 13683
== END 2021-07-01 23:59 | disposition home or self-care (01) ==
LOC: LABSPEC 07-02 07:04
PROVIDERS: Visit Provider Ophthalmology
DX: H02.9 Unspecified disorder of eyelid (principal)
CPT/HCPCS: 88305

== ENCOUNTER 2021-07-18 10:00 | Outpatient (RCR) | payer MEDICARE, OTHER, SELFPAY ==
[2021-06-24 22:50] VITALS: BMI 27.4
[2021-07-11 11:39] LABS: International Normalized Ratio 1.7; Prothrombin Time (Protime)PT. 19.3 SECONDS (11.7-14.9)
[2021-07-18 10:42] LABS: International Normalized Ratio 2.5; Prothrombin Time (Protime)PT. 26.1 SECONDS (11.7-14.9)
== END 2021-07-18 18:00 | disposition home or self-care (01) ==
LOC: LAB 10:00
PROVIDERS: Family Provider Family Medicine Geriatric Medicine; PCP Family Medicine Geriatric Medicine; Referring Provider Internal Medicine Cardiovascular Disease; Visit Provider Internal Medicine Cardiovascular Disease
DX: I48.0 Paroxysmal atrial fibrillation (principal); I48.92 Unspecified atrial flutter; Z79.01 Long term (current) use of 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s
CPT/HCPCS: 36415; 85610

== ENCOUNTER 2021-08-16 10:11 | Outpatient (RCR) | payer MEDICARE, OTHER, SELFPAY ==
[2021-07-23 09:34] VITALS: BMI 27.4
[2021-08-16 11:13] LABS: International Normalized Ratio 2.6; Prothrombin Time (Protime)PT. 27.3 SECONDS (11.7-14.9)
== END 2021-08-22 18:00 | disposition home or self-care (01) ==
LOC: LAB 10:11
PROVIDERS: Family Provider Family Medicine Geriatric Medicine; PCP Family Medicine Geriatric Medicine; Referring Provider Internal Medicine Cardiovascular Disease; Visit Provider Internal Medicine Cardiovascular Disease
DX: I48.0 Paroxysmal atrial fibrillation (principal); I48.92 Unspecified atrial flutter; Z79.01 Long term (current) use of 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s
CPT/HCPCS: 36415; 85610

== ENCOUNTER 2021-09-13 10:13 | Outpatient (RCR) | payer MEDICARE, OTHER, SELFPAY ==
[2021-08-23 01:36] VITALS: BMI 27.4
[2021-09-13 11:09] LABS: International Normalized Ratio 2.5; Prothrombin Time (Protime)PT. 26.6 SECONDS (11.7-14.9)
== END 2021-09-13 18:00 | disposition home or self-care (01) ==
LOC: LAB 10:13
PROVIDERS: Family Provider Family Medicine Geriatric Medicine; PCP Family Medicine Geriatric Medicine; Referring Provider Internal Medicine Cardiovascular Disease; Visit Provider Internal Medicine Cardiovascular Disease
DX: I48.0 Paroxysmal atrial fibrillation (principal); I48.92 Unspecified atrial flutter; Z79.01 Long term (current) use of 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s
CPT/HCPCS: 36415; 85610

== ENCOUNTER → 2021-10-01 | Outpatient (CLI) | payer MEDICARE, OTHER, SELFPAY ==
--- NOTE | 2021-10-01 08:57 | MRI_ITS ---
STUDY: MRI BRAIN WITH AND WITHOUT CONTRAST REASON FOR EXAM: Female, 81 years old. MULTIPLE MENIGIOMAS, hx gamma knife 2013 TECHNIQUE: Standardized multiplanar fat and water weighted pulse sequences were obtained. IV 16ml Dotarem was administered for the contrast portion of the examination. COMPARISON: MRI of the brain dated June 17, 2018. MRI of the brain dated July 18, 2013 FINDINGS: Reidentification of a small 1.86 cm ovoid enhancing extra-axial mass along the left planum sphenoidale marginating the left anterior clinoid process along the superior cavernous sinus, extending into the left orbital apex, involving the optic nerve root sheath consistent with known meningioma. The lesion is half is previous size, particularly the portion adjacent to the left cavernous sinus. No additional intra-axial or extra-axial lesions of the brain. Reidentification of a disc like diffusely enhancing 2.82 x 3.08 cm lesion in the intramedullary space and anterior apex of the frontal bone that is been described in present since 2013 and is compatible with a benign fibrous lesion. There is mild cerebral atrophy with widening of the extra-axial spaces and ventricular dilatation. There are a limited number of small white matter hyperintensities, distributed throughout the deep white matter tracts of the cerebral hemispheres, consistent with mild chronic white matter ischemic changes. There is no evidence for recent intracranial ischemia or other cause of cytotoxic edema on diffusion weighted imaging (DWI). Normal bilateral basal ganglia. Normal thalami. There is no extra-axial fluid accumulation. Normal flow voids within the major intracranial circulation suggesting patency by spin echo criteria. Normal venous enhancement. Normal sella turcica, pituitary gland, infundibular stalk, optic chiasm and hypothalamus. Normal tectal plate and pineal gland. Normal midbrain, hilary and medulla. Normal cerebellum. Normal basal cisterns. Normal bilateral temporal bones. Normal bilateral internal auditory canals. No demonstrated orbital abnormality, within the constraints of a routine brain study. Normal visualized paranasal sinuses. Normal visualized soft tissue structures. Normal visualized upper cervical spine. MRI/Brain W/WO Contrast IMPRESSION: 1. Reidentification of a small 1.86 cm ovoid enhancing extra-axial mass along the left planum sphenoidale marginating the left anterior clinoid process along the superior cavernous sinus, extending into the left orbital apex, involving the optic nerve root sheath consistent with known meningioma. The lesion is half is previous size, particularly the portion adjacent to the left cavernous sinus. 2. No additional intra-axial or extra-axial lesions of the brain. 3. Reidentification of a disc like diffusely enhancing 2.82 x 3.08 cm lesion in the intramedullary space and anterior apex of the frontal bone that is been described in present since 2014 and is compatible with a benign fibrous lesion. 4. Involutional changes of the brain, as described above. Electronically Signed: Reynaldo Zelaya MD at 15:33 EDT ,
[2021-10-01 09:34] VITALS: BP 150/80; PULSE 70; RESP 18; O2SAT 96
[2021-10-01 09:45] VITALS: BP 141/75; PULSE 69; RESP 18; O2SAT 96
[2021-10-01 09:55] VITALS: BP 137/76; PULSE 69; RESP 18; O2SAT 95
[2021-10-01 10:06] VITALS: BP 104/77; PULSE 69; RESP 18; O2SAT 96
[2021-10-01 10:16] VITALS: BP 139/81; PULSE 70; RESP 18; O2SAT 96
[2021-10-02 07:02] LABS: CREATININE FINGERSTICK < 0.6 mg/dL (0.55-1.02); EGFR FINGERSTICK > 60 mL/min (>60)
== END | disposition home or self-care (01) ==
LOC: MRI 08:50
PROVIDERS: PCP Family Medicine Geriatric Medicine
DX: D42.9 Neoplasm of uncertain behavior of meninges, unspecified (principal)
CPT/HCPCS: 70553; A9575

== ENCOUNTER 2021-10-08 10:22 | Outpatient (RCR) | payer MEDICARE, OTHER, SELFPAY ==
[2021-09-22 03:21] VITALS: BMI 27.4
[2021-10-08 11:16] LABS: International Normalized Ratio 2.6; Prothrombin Time (Protime)PT. 27.8 SECONDS (11.7-14.9)
== END 2021-10-08 18:00 | disposition home or self-care (01) ==
LOC: LAB 10:22
PROVIDERS: Family Provider Family Medicine Geriatric Medicine; PCP Family Medicine Geriatric Medicine; Referring Provider Internal Medicine Cardiovascular Disease; Visit Provider Internal Medicine Cardiovascular Disease
DX: I48.0 Paroxysmal atrial fibrillation (principal); I48.92 Unspecified atrial flutter; Z79.01 Long term (current) use of 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s
CPT/HCPCS: 36415; 85610

== ENCOUNTER → 2021-10-15 | Outpatient (CLI) | payer MEDICARE, OTHER, SELFPAY ==
[2021-10-15 17:11] LABS: Absolute Lymphocyte Count 1.32 X10^3/uL (0.83-4.51); Absolute Neutrophil Count 6.7 X10^3/uL (2.0-7.7); Basophil# 0.03 X10^3/uL; Basophil% 0.3 % (0-1); Eosinophil# 0.16 X10^3/uL; Eosinophils% 1.8 % (0-5); Hematocrit 45.2 % (37-47); Hemoglobin 14.3 g/dL (12.0-15.0); Lymphocyte # 1.32 X10^3/ul (0.83-4.51); Lymphocyte % 15.2 % (19-41); Mean Corp Hgb Conc 31.6 g/dL (32-36); Mean Corpuscular Hgb 29.9 pg (27.0-32.0); Mean Corpuscular Volume 94.6 fL (81-99); Monocyte# 0.47 X10^3/uL; Monocyte% 5.4 % (0-10); NRBC Flagged by Analyzer 0 % (0-5); Neutrophil # 6.68 X10^3/uL (2.7-7.7); Platelet Count 214 K/mm3 (150-450); RBC Distribution Width CV 15.1 % (11.6-14.6); RBC Distribution Width SD 52.6 fl (35.1-43.9); Red Blood Count 4.78 M/mm3 (4.2-5.4); White Blood Count 8.7 K/mm3 (4.4-11.0)
[2021-10-15 17:32] LABS: Vitamin D,25 Hydroxy 51.6 ng/mL
[2021-10-15 18:25] LABS: ALB/GLOB Ratio 0.8 RATIO (0.9-2.4); AST(SGOT) 29 U/L (15-37); Alanine Aminotransfer ALT/SGPT 36 U/L (13-56); Albumin, Serum 3.5 g/dL (3.2-5.0); Alkaline Phosphatase 98 U/L (45-117); Anion Gap 9 (5-15); BUN 26 mg/dL (7-18); BUN/Creat Ratio 29.1 RATIO (10-20); Calcium,Total 8.6 mg/dL (8.5-10.1); Chloride 106 mmol/L (98-107); Creatinine, Serum 0.89 mg/dL (0.55-1.02); EST Glomerular Filtration Rate 65 mL/min (>60); Est Glom Filt Rate - Afr Amer 78 mL/min (>60); Globulin 4.2 g/dL (2.2-4.2); Glucose 71 mg/dL (74-106); Potassium 4.2 mmol/L (3.5-5.1); Protein, Total 7.7 g/dL (6.4-8.2); Sodium Level 139 mmol/L (136-145); Thyroid Stim Hormone (TSH) 3.72 uIU/mL (0.358-3.74)
== END | disposition home or self-care (01) ==
LOC: POLAB3 13:32
PROVIDERS: PCP Family Medicine Geriatric Medicine; Visit Provider Family Medicine Geriatric Medicine
DX: I10 Essential (primary) hypertension (principal); E55.9 Vitamin D deficiency, unspecified
CPT/HCPCS: 36415; 80053; 82306; 84443; 85025

== ENCOUNTER → 2021-10-31 | Outpatient (CLI) | payer MEDICARE, OTHER, SELFPAY ==
--- NOTE | 2021-10-31 | LES_PTH ---
PATIENT: PORTILLO NGUYEN [facility] U#:[id number] AGE/SX: 81/F ROOM: RE10/31/[address]: Dr. Chad Sawyer MD : 1940 BED: DIS: 10/31/2021 SPEC #: [id number] RECD: 10/31/21 14:49 STATUS: SYL REBala #: [id number] JANICE: 10/31/21 00:[address]: Chad Sawyer DEPT: SURGICAL PATHOLOGY RECD BY: Payam Haile ENTERED: 11/01/21 11:08 SP TYPE: Lesion OTHR DR: Dr. Yaya Brandt MD Tissues: Skin of eyelid, NOS Procedures: Surgery Specimen Level IV HEADER OPERATION: Lesion removal left upper lid PRE-OP DIAGNOSIS: Left upper eyelid lesion TISSUE SUBMITTED: Left upper eyelid lesion MICROSCOPIC DIAGNOSIS Left upper eyelid lesion, biopsy: Consistent with benign verrucous keratosis with hyperkeratosis and parakeratosis. Negative for malignancy. See comment. TOVA:teena 11/04/2021 COMMENT Clinical correlation and appropriate follow up are necessary. Please make reference to previous specimens ([id number]) skin lesion of right lower eyelid, biopsy with diagnosis of ?fragments of basal cell carcinoma? and ([id number]) left upper lid conjunctival lesion, excision with diagnosis of ?acute and chronic inflammation, granulation tissue reaction and hemorrhage.? MICROSCOPIC DESCRIPTION Slides are reviewed. GROSS DESCRIPTION Received in fixative is one container labeled with the patient's name and designated left upper eyelid. The specimen consists of a piece of kenyon-white skin measuring 1 x 0.5 x 0.3 cm. The specimen is inked and submitted entirely in one cassette. / Korey 11/01/2021 TC:5 CPT: 90008
== END | disposition home or self-care (01) ==
LOC: LABSPEC 15:01
PROVIDERS: PCP Family Medicine Geriatric Medicine; Visit Provider Ophthalmology
DX: D23.111 Other benign neoplasm of skin of right upper eyelid, including canthus (principal)
CPT/HCPCS: 88305

== ENCOUNTER 2021-11-08 09:50 | Outpatient (RCR) | payer MEDICARE, OTHER, SELFPAY ==
[2021-10-22 20:33] VITALS: BMI 27.4
[2021-11-08 10:58] LABS: International Normalized Ratio 2.4; Prothrombin Time (Protime)PT. 25.9 SECONDS (11.7-14.9)
== END 2021-11-08 23:59 | disposition home or self-care (01) ==
LOC: LAB 09:50
PROVIDERS: Family Provider Family Medicine Geriatric Medicine; PCP Family Medicine Geriatric Medicine; Referring Provider Internal Medicine Cardiovascular Disease; Visit Provider Internal Medicine Cardiovascular Disease
DX: I48.0 Paroxysmal atrial fibrillation (principal); I48.92 Unspecified atrial flutter; Z79.01 Long term (current) use of 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s
CPT/HCPCS: 36415; 85610

== ENCOUNTER 2021-12-06 10:06 | Outpatient (RCR) | payer MEDICARE, OTHER, SELFPAY ==
[2021-11-22 06:52] VITALS: BMI 27.4
[2021-12-06 10:58] LABS: International Normalized Ratio 2.6; Prothrombin Time (Protime)PT. 27.4 SECONDS (11.7-14.9)
== END 2021-12-22 02:11 | disposition home or self-care (01) ==
LOC: LAB 10:06
PROVIDERS: Family Provider Family Medicine Geriatric Medicine; PCP Family Medicine Geriatric Medicine; Referring Provider Internal Medicine Cardiovascular Disease; Visit Provider Internal Medicine Cardiovascular Disease
DX: I48.0 Paroxysmal atrial fibrillation (principal); I48.92 Unspecified atrial flutter; Z79.01 Long term (current) use of 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s
CPT/HCPCS: 36415; 85610

== ENCOUNTER 2022-01-10 10:32 | Outpatient (RCR) | payer MEDICARE, OTHER, SELFPAY ==
[2021-12-22 02:11] VITALS: BMI 27.4
[2022-01-02 10:45] LABS: International Normalized Ratio 3.7
[2022-01-10 11:33] LABS: International Normalized Ratio 2.2; Prothrombin Time (Protime)PT. 24.3 SECONDS (11.7-14.9)
== END 2022-01-10 18:00 | disposition home or self-care (01) ==
LOC: LAB 10:32
PROVIDERS: Family Provider Family Medicine Geriatric Medicine; PCP Family Medicine Geriatric Medicine; Referring Provider Internal Medicine Cardiovascular Disease; Visit Provider Internal Medicine Cardiovascular Disease
DX: I48.0 Paroxysmal atrial fibrillation (principal); I48.92 Unspecified atrial flutter; Z79.01 Long term (current) use of 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s
CPT/HCPCS: 36415; 85610

== ENCOUNTER → 2022-01-20 | Outpatient (CLI) | payer MEDICARE, OTHER, SELFPAY ==
--- NOTE | 2022-01-20 07:08 | ECHOD_ITS ---
Reason For Study: A. fib Procedure This was a 2D Doppler, Color Flow transthoracic echocardiogram. Patient scanned supine d/t discomfort while laying on left side with pacemaker. Exam performed in department. Left Ventricle Normal LV size. Left ventricular systolic function is normal. The estimated ejection fraction is 65 %. Diastolic function is indeterminate. No regional wall motion abnormalities noted. Right Ventricle Normal RV size. ICD or pacer leads identified within the right ventricle. Normal systolic function. Atria The left atrium is severely enlarged. The right atrium is mildly enlarged. ICD or pacer leads identified within the right atrium. No doppler evidence for ASD. Mitral Valve There is mild to moderate mitral annular calcification. Extension of the mitral annular calcification on the base of the posterior mitral valve leaflet. Moderate (2+) eccentric mitral valve insufficiency. Tricuspid Valve Normal tricuspid valve. Mild to moderate (1-2+) tricuspid valve insufficiency. Right ventricular systolic pressure estimated to be 23 mmHg. Aortic Valve Trisinus/trileaflet aortic valve. Moderate focal aortic valve calcification. Mild aortic stenosis. Trivial aortic valve insufficiency. Pulmonic Valve The pulmonic valve is not well visualized. Great Vessels Normal sized aortic root. Pericardium/Pleural No pericardial effusion. MMode/2D Measurements & Calculations LVIDd: 4.3 cm IVSd: 1.3 cm LVOT diam: 2.0 cm LVIDs: 3.2 cm LVPWd: 1.2 cm LVOT area: 3.0 cm2 RVDd: 3.9 cm FS: 25.4 % Ao root diam: 3.7 cm LAV(MOD-bp): 120.8 ml LVAd ap4: 29.7 cm2 LAV(MOD-bp) Indexed: 62.9 ml/m2 LVLd ap4: 7.5 cm LAV(MOD-sp2): 76.6 ml EDV(MOD-sp4): 99.2 ml LAV(MOD-sp4): 143.0 ml EDV(sp4-el): 99.2 ml LVAs ap4: 19.5 cm2 LVLs ap4: 7.0 cm ESV(MOD-sp4): 50.0 ml ESV(sp4-el): 46.3 ml EF(MOD-sp4): 49.6 % EF(sp4-el): 53.4 % LVAd ap2: 24.4 cm2 SV(MOD-sp4): 49.2 ml SV(MOD-sp2): 41.0 ml LVLd ap2: 7.4 cm EDV(MOD-sp2): 68.1 ml EDV(sp2-el): 68.1 ml LVAs ap2: 13.1 cm2 LVLs ap2: 6.0 cm ESV(MOD-sp2): 27.1 ml ESV(sp2-el): 24.6 ml EF(MOD-sp2): 60.2 % SV(sp4-el): 53.0 ml LA dimension(2D): 4.5 cm LA A4 area: 36.4 cm2 RA A4 area: 22.8 cm2 Doppler Measurements & Calculations MV E max juliette: 71.6 cm/sec Ao V2 max: 173.9 cm/sec AI max juliette: 449.8 cm/sec Ao max P.1 mmHg AI max P.9 mmHg Ao V2 mean: 121.2 cm/sec Ao mean P.7 mmHg AI dec slope: 201.5 cm/sec2 Ao V2 VTI: 33.6 cm AI P1/2t: 653.8 msec IVON(I,D): 1.5 cm2 IVON(V,D): 1.6 cm2 LV V1 max: 90.2 cm/sec SV(LVOT): 51.4 ml PA V2 max: 60.9 cm/sec LV V1 max P.3 mmHg LV V1 mean P.9 mmHg LV V1 mean: 64.7 cm/sec LV V1 VTI: 17.0 cm TR max juliette: 224.5 cm/sec TR max P.3 mmHg ECHO/Echo Complete Interpretation Summary Left ventricular systolic function is normal. The estimated ejection fraction is 65 %. The left atrium is severely enlarged. The right atrium is mildly enlarged. There is mild to moderate mitral annular calcification. Extension of the mitral annular calcification on the base of the posterior mitr al valve leaflet. Moderate (2+) eccentric mitral valve insufficiency. Mild to moderate (1-2+) tricuspid valve insufficiency. Mild aortic stenosis. Trivial aortic valve insufficiency. Right ventricular systolic pressure estimated to be 23 mmHg. Diastolic function is indeterminate. ICD or pacer leads identified within the right atrium ICD or pacer leads identified within the right ventricle. Ordering Physician: Sergio Leyva Referring Physician: Yaya Brandt Chi Performed By: Mary Gregory [facility]
--- NOTE | 2022-01-20 09:58 | STRESSREP ---
Stress Test Report Date: 01-20-2022 Procedure: Pharmacologic stress nuclear imaging study Indications: Shortness of breath/dyspnea on exertion; fatigue; atrial dysrhythmia; status post EPS/RFA; status post PPM Consent: Per the patient Procedure: The patient underwent pharmacologic (Regadenoson 0.4mg ) evaluation with a peak heart rate of 96 beats per minute (68%predicted maximal heart rate) and a peak blood pressure of 114/82 mmHg. The baseline ECG demonstrated atrial flutter. The peak pharmacologic ECG demonstrated continued atrial flutter; no obvious ECG changes. There were no additional cardiac dysrhythmias pretest, during pharmacologic infusion, or recovery. There was no complaint of chest discomfort during pharmacologic infusion or recovery. The examination was discontinued secondary to completion of protocol. Impression: 1. Pharmacologic (Regadenoson) evaluation 2. Peak pharmacologic ECG with continued atrial flutter with no obvious ECG changes. 3. There were no additional cardiac dysrhythmias pretest, during pharmacologic infusion, or recovery. 4. Nuclear images pending Myocardial perfusion imaging study: Technique: The patient was injected with 11.9 millicuries of technetium 99m Cardiolite and subsequently rest SPECT Cardiolite nuclear imaging was obtained in the horizontal long, vertical long, and short axis views. The patient underwent pharmacologic (Regadenoson) evaluation with a peak heart rate of 96 beats per minute (68% percent predicted maximal heart rate) and a peak blood pressure of 114/82 mmHg. The patient was injected with 34.7 millicuries of technetium 99m Cardiolite and subsequently stress SPECT Cardiolite nuclear imaging was obtained in the horizontal long, vertical long, and short axis views. A gated Cardiolite study at peak stress was obtained. Interpretation: Rest and stress SPECT Cardiolite nuclear imaging status post realignment, normalization, and attenuation correction demonstrate relative uniform tracer uptake and myocardial perfusion appearing within normal limits. There is end systolic thickening and brightening. The gated Cardiolite study demonstrates myocardial thickening and inward wall motion. The reported LVEF is 68%. Impression: 1. Rest and stress SPECT Cardiolite nuclear imaging demonstrate relative uniform tracer uptake and myocardial perfusion appearing within normal limits. 2. The gated Cardiolite study reports an LVEF of 68%. This note was generated with [employer] software. It may contain incorrect words, spelling, and punctuation that were not noted in checking the note before signing.
== END | disposition home or self-care (01) ==
LOC: CVS 07:07
PROVIDERS: PCP Family Medicine Geriatric Medicine; Referring Provider Internal Medicine Cardiovascular Disease; Visit Provider Internal Medicine Cardiovascular Disease
DX: I34.0 Nonrheumatic mitral (valve) insufficiency (principal); I48.0 Paroxysmal atrial fibrillation; R94.31 Abnormal electrocardiogram [ECG] [EKG]
CPT/HCPCS: 78452; 93017; 93306; A9500; A4216; J2785

== ENCOUNTER 2022-02-07 09:48 | Outpatient (RCR) | payer MEDICARE, OTHER, SELFPAY ==
[2022-01-22 22:47] VITALS: BMI 27.4
[2022-02-07 10:36] LABS: International Normalized Ratio 2.4; Prothrombin Time (Protime)PT. 26.2 SECONDS (11.7-14.9)
== END 2022-02-07 18:00 | disposition home or self-care (01) ==
LOC: LAB 09:48
PROVIDERS: Family Provider Family Medicine Geriatric Medicine; PCP Family Medicine Geriatric Medicine; Referring Provider Internal Medicine Cardiovascular Disease; Visit Provider Internal Medicine Cardiovascular Disease
DX: I48.0 Paroxysmal atrial fibrillation (principal); I48.92 Unspecified atrial flutter; Z79.01 Long term (current) use of 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s
CPT/HCPCS: 36415; 85610

== ENCOUNTER 2022-03-07 10:26 | Outpatient (RCR) | payer MEDICARE, OTHER, SELFPAY ==
[2022-02-21 20:39] VITALS: BMI 27.4
[2022-03-07 11:34] LABS: International Normalized Ratio 2.4; Prothrombin Time (Protime)PT. 25.9 SECONDS (11.7-14.9)
== END 2022-03-07 18:00 | disposition home or self-care (01) ==
LOC: LAB 10:26
PROVIDERS: Physician Assistant Medical; Family Provider Family Medicine Geriatric Medicine; PCP Family Medicine Geriatric Medicine; Referring Provider Internal Medicine Cardiovascular Disease; Visit Provider Internal Medicine Cardiovascular Disease
DX: I48.0 Paroxysmal atrial fibrillation (principal); I48.92 Unspecified atrial flutter; Z79.01 Long term (current) use of 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s
CPT/HCPCS: 36415; 85610

== ENCOUNTER 2022-04-22 10:04 | Outpatient (RCR) | payer MEDICARE, OTHER, SELFPAY ==
[2022-03-25 09:30] VITALS: BMI 27.4
[2022-04-22 10:41] LABS: International Normalized Ratio 3.1; Prothrombin Time (Protime)PT. 31.5 SECONDS (11.7-14.9)
== END 2022-04-23 18:00 | disposition home or self-care (01) ==
LOC: LAB 10:04
PROVIDERS: Family Provider Family Medicine Geriatric Medicine; PCP Family Medicine Geriatric Medicine; Referring Provider Internal Medicine Cardiovascular Disease; Visit Provider Internal Medicine Cardiovascular Disease
DX: I48.92 Unspecified atrial flutter; Z79.01 Long term (current) use of 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s
CPT/HCPCS: 36415; 85610

== ENCOUNTER 2022-05-02 09:39 | Outpatient (RCR) | payer MEDICARE, OTHER, SELFPAY ==
[2022-04-23 22:58] VITALS: BMI 27.4
[2022-05-02 10:39] LABS: International Normalized Ratio 2.6; Prothrombin Time (Protime)PT. 27.6 SECONDS (11.7-14.9)
== END 2022-05-02 18:00 | disposition home or self-care (01) ==
LOC: LAB 09:39
PROVIDERS: Family Provider Family Medicine Geriatric Medicine; PCP Family Medicine Geriatric Medicine; Referring Provider Internal Medicine Cardiovascular Disease; Visit Provider Internal Medicine Cardiovascular Disease
DX: I48.92 Unspecified atrial flutter; Z79.01 Long term (current) use of 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s
CPT/HCPCS: 36415; 85610

== ENCOUNTER → 2022-05-06 | Outpatient (CLI) | payer MEDICARE, OTHER, SELFPAY ==
--- NOTE | 2022-05-06 11:15 | TISS_PTH ---
PATIENT: PORTILLO NGUYEN LOC: [facility] U#:[id number] AGE/SX: 81/F ROOM: RE05/06/[address]: Dr. Yaya Brandt MD : 1940 BED: DIS: 05/06/2022 SPEC #: [id number] RECD: 05/06/22 16:50 STATUS: SYL ARMINDA #: [id number] JANICE: 05/06/22 11:[address]: Yaya Brandt Chi DEPT: SURGICAL PATHOLOGY RECD BY: Johan Tyler Tissues: Skin of upper extremity and shoulder Procedures: Surgery Specimen Level IV HEADER OPERATION: Right shoulder shave biopsy PRE-OP DIAGNOSIS: Right shoulder lesion TISSUE SUBMITTED: Right shoulder MICROSCOPIC DIAGNOSIS Right shoulder lesion, shave biopsy: Invasive well differentiated squamous cell carcinoma. See comment. TOVA:teena 05/08/2022 COMMENT The tumor is present at the deep margin of the specimen. Clinical correlation and appropriate follow up are necessary. MICROSCOPIC DESCRIPTION Slides are reviewed. GROSS DESCRIPTION Received is one container labeled with the patient's name and not further designated. The specimen consists of a yellow-kenyon shaved biopsy of skin measuring 1.3 x 1 x 0.2 cm. The specimen is inked, sectioned and totally submitted in one cassette. / AM:teena 05/07/2022 TC:0 [facility] [place]: [id number]
[2022-05-06 13:20] LABS: Absolute Lymphocyte Count 1.21 X10^3/uL (0.83-4.51); Absolute Neutrophil Count 5.4 X10^3/uL (2.0-7.7); Basophil# 0.03 X10^3/uL; Basophil% 0.4 % (0-1); Eosinophil# 0.15 X10^3/uL; Eosinophils% 2.1 % (0-5); Hematocrit 44.6 % (37-47); Hemoglobin 14.1 g/dL (12.0-15.0); Lymphocyte # 1.21 X10^3/ul (0.83-4.51); Lymphocyte % 16.6 % (19-41); Mean Corp Hgb Conc 31.6 g/dL (32-36); Mean Corpuscular Volume 94.9 fL (81-99); Mean Platelet Vol. 10.9 fl (6.2-12.0); Monocyte# 0.44 X10^3/uL; Monocyte% 6.1 % (0-10); NRBC Flagged by Analyzer 0 % (0-5); Neutrophil # 5.42 X10^3/uL (2.7-7.7); Neutrophil % 74.5 % (47-70); Platelet Count 214 K/mm3 (150-450); RBC Distribution Width CV 14.4 % (11.6-14.6); RBC Distribution Width SD 49.9 fl (35.1-43.9); White Blood Count 7.3 K/mm3 (4.4-11.0)
[2022-05-06 13:32] LABS: Vitamin D,25 Hydroxy 50.8 ng/mL
[2022-05-06 15:05] LABS: ALB/GLOB Ratio 0.8 RATIO (0.9-2.4); AST(SGOT) 23 U/L (15-37); Alanine Aminotransfer ALT/SGPT 34 U/L (13-56); Albumin, Serum 3.4 g/dL (3.2-5.0); Alkaline Phosphatase 95 U/L (45-117); Anion Gap 10 (5-15); BUN 19 mg/dL (7-18); BUN/Creat Ratio 21.8 RATIO (10-20); Calcium,Total 8.8 mg/dL (8.5-10.1); Chloride 106 mmol/L (98-107); Creatinine, Serum 0.87 mg/dL (0.55-1.02); EST Glomerular Filtration Rate 67 mL/min (>60); Est Glom Filt Rate - Afr Amer 81 mL/min (>60); Glucose 57 mg/dL (74-106); Potassium 3.9 mmol/L (3.5-5.1); Protein, Total 7.4 g/dL (6.4-8.2); Sodium Level 141 mmol/L (136-145)
== END | disposition home or self-care (01) ==
LOC: POLAB3 10:09
PROVIDERS: PCP Family Medicine Geriatric Medicine; Visit Provider Family Medicine Geriatric Medicine
DX: I10 Essential (primary) hypertension (principal); E55.9 Vitamin D deficiency, unspecified; C44.622 Squamous cell carcinoma of skin of right upper limb, including shoulder
CPT/HCPCS: 36415; 80053; 82306; 84443; 85025; 87210; 88305

== ENCOUNTER 2022-06-03 09:25 | Outpatient (RCR) | payer MEDICARE, OTHER, SELFPAY ==
[2022-05-25 01:23] VITALS: BMI 27.4
[2022-06-03 11:20] LABS: International Normalized Ratio 2.6; Prothrombin Time (Protime)PT. 27.1 SECONDS (11.7-14.9)
== END 2022-06-03 11:00 | disposition home or self-care (01) ==
LOC: LAB 09:25
PROVIDERS: Family Provider Family Medicine Geriatric Medicine; PCP Family Medicine Geriatric Medicine; Referring Provider Internal Medicine Cardiovascular Disease; Visit Provider Internal Medicine Cardiovascular Disease
DX: I48.92 Unspecified atrial flutter; Z79.01 Long term (current) use of 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s
CPT/HCPCS: 36415; 85610

== ENCOUNTER 2022-07-11 10:12 | Outpatient (RCR) | payer MEDICARE, OTHER, SELFPAY ==
[2022-06-25 08:05] VITALS: BMI 27.4
[2022-07-11 11:23] LABS: International Normalized Ratio 2.6; Prothrombin Time (Protime)PT. 27.8 SECONDS (11.7-14.9)
== END 2022-07-11 18:00 | disposition home or self-care (01) ==
LOC: LAB 10:12
PROVIDERS: Family Provider Family Medicine Geriatric Medicine; PCP Family Medicine Geriatric Medicine; Referring Provider Internal Medicine Cardiovascular Disease; Visit Provider Internal Medicine Cardiovascular Disease
DX: I48.92 Unspecified atrial flutter; Z79.01 Long term (current) use of 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s
CPT/HCPCS: 36415; 85610

== ENCOUNTER 2022-08-05 10:29 | Outpatient (RCR) | payer MEDICARE, OTHER, SELFPAY ==
[2022-07-22 19:57] VITALS: BMI 27.4
[2022-08-05 12:18] LABS: International Normalized Ratio 2.8; Prothrombin Time (Protime)PT. 28.8 SECONDS (11.7-14.9)
== END 2022-08-22 21:46 | disposition home or self-care (01) ==
LOC: LAB 10:29
PROVIDERS: Family Provider Family Medicine Geriatric Medicine; PCP Family Medicine Geriatric Medicine; Referring Provider Internal Medicine Cardiovascular Disease; Visit Provider Internal Medicine Cardiovascular Disease
DX: I48.92 Unspecified atrial flutter (principal); Z79.01 Long term (current) use of 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s
CPT/HCPCS: 36415; 85610

== ENCOUNTER 2022-09-04 10:30 | Outpatient (RCR) | payer MEDICARE, OTHER, SELFPAY ==
[2022-08-22 21:47] VITALS: BMI 27.4
[2022-09-04 11:38] LABS: International Normalized Ratio 2.7; Prothrombin Time (Protime)PT. 28.7 SECONDS (11.7-14.9)
== END 2022-09-21 01:11 | disposition home or self-care (01) ==
LOC: LAB 10:30
PROVIDERS: Family Provider Family Medicine Geriatric Medicine; PCP Family Medicine Geriatric Medicine; Referring Provider Internal Medicine Cardiovascular Disease; Visit Provider Internal Medicine Cardiovascular Disease
DX: I48.92 Unspecified atrial flutter (principal); Z79.01 Long term (current) use of 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s
CPT/HCPCS: 36415; 85610

== ENCOUNTER 2022-10-02 09:57 | Outpatient (RCR) | payer MEDICARE, OTHER, SELFPAY ==
[2022-09-21 01:11] VITALS: BMI 27.4
[2022-10-02 11:10] LABS: International Normalized Ratio 2.7; Prothrombin Time (Protime)PT. 29.2 SECONDS (11.7-14.9)
== END 2022-10-22 18:00 | disposition home or self-care (01) ==
LOC: LAB 09:57
PROVIDERS: Family Provider Family Medicine Geriatric Medicine; PCP Family Medicine Geriatric Medicine; Referring Provider Nurse Practitioner Family; Visit Provider Nurse Practitioner Family
DX: I48.92 Unspecified atrial flutter (principal); Z79.01 Long term (current) use of 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s
CPT/HCPCS: 36415; 85610

== ENCOUNTER 2022-10-30 09:44 | Outpatient (RCR) | payer MEDICARE, OTHER, SELFPAY ==
[2022-10-23 08:29] VITALS: BMI 27.4
[2022-10-30 11:13] LABS: International Normalized Ratio 2.6
== END 2022-10-30 18:00 | disposition home or self-care (01) ==
LOC: LAB 09:44
PROVIDERS: Family Provider Family Medicine Geriatric Medicine; PCP Family Medicine Geriatric Medicine; Referring Provider Nurse Practitioner Family; Visit Provider Nurse Practitioner Family
DX: I48.92 Unspecified atrial flutter (principal); Z79.01 Long term (current) use of 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s
CPT/HCPCS: 36415; 85610

== ENCOUNTER → 2022-11-18 | Outpatient (CLI) | payer MEDICARE, OTHER, SELFPAY ==
[2022-11-18 15:23] LABS: Absolute Lymphocyte Count 1.33 X10^3/uL (0.83-4.51); Basophil# 0.03 X10^3/uL; Basophil% 0.4 % (0-1); Eosinophil# 0.15 X10^3/uL; Eosinophils% 1.9 % (0-5); Hematocrit 42.1 % (37-47); Hemoglobin 13.6 g/dL (12.0-15.0); Lymphocyte # 1.33 X10^3/ul (0.83-4.51); Lymphocyte % 16.8 % (19-41); Mean Corp Hgb Conc 32.3 g/dL (32-36); Mean Corpuscular Hgb 30.5 pg (27.0-32.0); Mean Corpuscular Volume 94.4 fL (81-99); Mean Platelet Vol. 10.7 fl (6.2-12.0); Monocyte# 0.42 X10^3/uL; Monocyte% 5.3 % (0-10); NRBC Flagged by Analyzer 0 % (0-5); Neutrophil # 5.96 X10^3/uL (2.7-7.7); Neutrophil % 75.3 % (47-70); Platelet Count 184 K/mm3 (150-450); RBC Distribution Width CV 15.1 % (11.6-14.6); Red Blood Count 4.46 M/mm3 (4.2-5.4); White Blood Count 7.9 K/mm3 (4.4-11.0)
[2022-11-18 15:52] LABS: ALB/GLOB Ratio 0.8 RATIO (0.9-2.4); AST(SGOT) 22 U/L (15-37); Alanine Aminotransfer ALT/SGPT 25 U/L (13-56); Albumin, Serum 3.3 g/dL (3.2-5.0); Alkaline Phosphatase 90 U/L (45-117); Anion Gap 4 (5-15); BUN 24 mg/dL (7-18); BUN/Creat Ratio 24.2 RATIO (10-20); Calcium,Total 8.6 mg/dL (8.5-10.1); Chloride 107 mmol/L (98-107); Creatinine, Serum 0.99 mg/dL (0.55-1.02); EST Glomerular Filtration Rate 57 mL/min (>60); Est Glom Filt Rate - Afr Amer 69 mL/min (>60); Glucose 99 mg/dL (74-106); Potassium 4.3 mmol/L (3.5-5.1); Protein, Total 7.3 g/dL (6.4-8.2); Sodium Level 140 mmol/L (136-145); Thyroid Stim Hormone (TSH) 2.36 uIU/mL (0.358-3.74)
== END | disposition home or self-care (01) ==
LOC: LAB 15:06
PROVIDERS: PCP Family Medicine Geriatric Medicine; Referring Provider Family Medicine Geriatric Medicine; Visit Provider Family Medicine Geriatric Medicine
DX: I10 Essential (primary) hypertension (principal); E55.9 Vitamin D deficiency, unspecified
CPT/HCPCS: 36415; 80053; 82306; 84443; 85025

== ENCOUNTER 2022-12-05 10:26 | Outpatient (RCR) | payer MEDICARE, OTHER, SELFPAY ==
[2022-11-21 21:51] VITALS: BMI 27.4
[2022-12-05 11:10] LABS: International Normalized Ratio 2.7
== END 2022-12-22 18:00 | disposition home or self-care (01) ==
LOC: LAB 10:26
PROVIDERS: Family Provider Family Medicine Geriatric Medicine; PCP Family Medicine Geriatric Medicine; Referring Provider Nurse Practitioner Family; Visit Provider Nurse Practitioner Family
DX: I48.92 Unspecified atrial flutter (principal); Z79.01 Long term (current) use of 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s
CPT/HCPCS: 36415; 85610

== ENCOUNTER 2023-01-09 10:13 | Outpatient (RCR) | payer MEDICARE, OTHER, SELFPAY ==
[2022-12-23 00:27] VITALS: BMI 27.4
[2023-01-09 11:19] LABS: International Normalized Ratio 2.9; Prothrombin Time (Protime)PT. 30.4 SECONDS (11.7-14.9)
== END 2023-01-09 18:00 | disposition home or self-care (01) ==
LOC: LAB 10:13
PROVIDERS: Family Provider Family Medicine Geriatric Medicine; PCP Family Medicine Geriatric Medicine; Referring Provider Nurse Practitioner Family; Visit Provider Nurse Practitioner Family
DX: I48.92 Unspecified atrial flutter (principal); Z79.01 Long term (current) use of 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s
CPT/HCPCS: 36415; 85610

== ENCOUNTER 2023-02-06 10:16 | Outpatient (RCR) | payer MEDICARE, OTHER, SELFPAY ==
[2023-01-22 22:17] VITALS: BMI 27.4
[2023-02-06 11:28] LABS: International Normalized Ratio 2.9; Prothrombin Time (Protime)PT. 30.5 SECONDS (11.7-14.9)
== END 2023-02-06 18:00 | disposition home or self-care (01) ==
LOC: LAB 10:16
PROVIDERS: Family Provider Family Medicine Geriatric Medicine; PCP Family Medicine Geriatric Medicine; Referring Provider Nurse Practitioner Family; Visit Provider Nurse Practitioner Family
DX: Z79.01 Long term (current) use of 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s
CPT/HCPCS: 36415; 85610

== ENCOUNTER 2023-03-05 10:23 | Outpatient (RCR) | payer MEDICARE, OTHER, SELFPAY ==
[2023-02-22 01:50] VITALS: BMI 27.4
[2023-03-05 10:59] LABS: International Normalized Ratio 2.9; Prothrombin Time (Protime)PT. 30.9 SECONDS (11.7-14.9)
== END 2023-03-05 18:00 | disposition home or self-care (01) ==
LOC: LAB 10:23
PROVIDERS: Family Provider Family Medicine Geriatric Medicine; PCP Family Medicine Geriatric Medicine; Referring Provider Nurse Practitioner Family; Visit Provider Nurse Practitioner Family
DX: Z79.01 Long term (current) use of 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s (principal); I48.0 Paroxysmal atrial fibrillation; I48.92 Unspecified atrial flutter
CPT/HCPCS: 36415; 85610

== ENCOUNTER 2023-04-02 10:24 | Outpatient (RCR) | payer MEDICARE, OTHER, SELFPAY ==
[2023-03-24 23:22] VITALS: BMI 27.4
[2023-04-02 11:24] LABS: International Normalized Ratio 2.8
== END 2023-04-23 18:00 | disposition home or self-care (01) ==
LOC: LAB 10:24
PROVIDERS: Family Provider Family Medicine Geriatric Medicine; PCP Family Medicine Geriatric Medicine; Referring Provider Nurse Practitioner Family; Visit Provider Nurse Practitioner Family
DX: Z79.01 Long term (current) use of 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s (principal); I48.0 Paroxysmal atrial fibrillation; I48.92 Unspecified atrial flutter
CPT/HCPCS: 36415; 85610

== ENCOUNTER → 2023-04-05 | Outpatient (CLI) | payer MEDICARE, OTHER, SELFPAY ==
[2023-04-05 14:29] LABS: Bacteria 0 SEEN /hpf (None Seen); Mucous, Urine 0 SEEN /hpf (<or=2+); Red Blood Cells-Urine 0 SEEN /hpf (0-5)
[2023-04-05 14:33] LABS: Color, Urine Yellow (Yellow); Glucose, Dipstick Normal (Normal); Ketone-Dipstick Negative (Negative); Leukocyte Esterase-Dipstick 500 /ul (Negative); Nitrite-Dipstick Negative (Negative); Occult Blood-Urine 25 /ul (Negative); Protein-Dipstick 30 mg/dl (Negative); Urine Bilirubin Dipstick Negative (Negative); Urine Clarity Clear (Clear); Urine Urobilinogen Normal (Normal)
[2023-04-05 14:39] LABS: Squamous Epithelial Cells - UA 0-5 SEEN /hpf (5-10); White Blood Cells 10-25 SEEN /hpf (0-5)
== END | disposition home or self-care (01) ==
LOC: LABSPEC 14:23
PROVIDERS: PCP Family Medicine Geriatric Medicine; Visit Provider Nurse Practitioner Family
DX: R53.83 Other fatigue (principal); R35.0 Frequency of micturition
CPT/HCPCS: 81001; 87086; 87088

== ENCOUNTER → 2023-04-27 | Outpatient (CLI) | payer MEDICARE, OTHER, SELFPAY | END | disposition home or self-care (01) | LOC: PSN 12:33 | PROVIDERS: PCP Family Medicine Geriatric Medicine; Referring Provider Family Medicine Geriatric Medicine; Visit Provider Family Medicine Geriatric Medicine | DX: R68.83 Chills (without fever) (principal) | CPT/HCPCS: 87635; 87804; 87807; C9803 ==

== ENCOUNTER 2023-05-02 09:13 | Emergency (ER) | payer MEDICARE, OTHER, SELFPAY ==
[2023-05-02 09:14] VITALS: BP 141/88; PULSE 84; RESP 16; TEMP 36.2; O2SAT 99
--- NOTE | 2023-05-02 10:00 | RAD_ITS ---
STUDY: X-RAY - PELVIS AND LEFT HIP REASON FOR EXAM: Female, 82 years old. Atraumatic left hip pain TECHNIQUE: 3 views of the pelvis and hip. COMPARISON: None. FINDINGS: There is a normal bowel gas pattern. There are atherosclerotic vascular calcifications of the pelvic arteries. There is probable pessary in position. There is diffuse demineralization of the osseous structures. Normal bilateral iliac wings, sacroiliac joints and visualized sacrum. Normal bilateral superior and inferior pubic rami. Normal pubic symphysis. Normal bilateral ischial tuberosities. Normal visualized femoral head. Normal acetabulum. Normal hip joint. RAD/HIP, UNI W/ Pelvis 2-3 Views IMPRESSION: No fracture seen. Joint space is well-preserved. Electronically Signed: Sampson Suero MD at 11:04 EST ,
--- NOTE | 2023-05-02 10:04 | ED.VIS.LOWEX ---
HPI History of Present Illness HPI Narrative: 82-year-old female with atraumatic left hip pain for months progressively getting worse. There is any fall injury or trauma. No fever or redness. No prior hip surgery. No back pain. Chief Complaint: Lower Extremity Injury Informant: patient and family Occured/Mechanism Mechanism/Context: No injury and No blunt trauma Onset/Context/Timing Onset: Month(s) Context: Gradual Onset Timing: Continuous Quality of Pain: Dull and Aching Current Severity: Moderate Maximum Severity: Moderate Associated Symptoms Associated Symptoms: Negative for Parasthesia, Weakness or Loss of Funtion Narrative Narrative: 82-year-old female history of A-fib/flutter on Coumadin. Complaining of acute on chronic atraumatic left hip pain. No prior surgery. 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 lactis 10 billion cell capsule 1 ea PO DAILY 03/21/19 [History Last Taken 03/21/19] magnesium oxide 400 mg (241.3 mg magnesium) tablet 400 mg PO DAILY 03/21/19 [History Last Taken 03/21/19] vitamin A 3,000 mcg (10,000 unit) capsule 10,000 unit PO QODAY SUPPLEMENT 03/21/19 [History Last Taken 03/21/19] methenamine hippurate 1 gram tablet 1 g PO DAILY to prevent UTI 06/14/20 [History Last Taken Unknown] [place] [facility] 1 tab PO DAILY eye health 06/21/20 [History Last Taken Unknown] levothyroxine 25 mcg tablet 12.5 mcg PO Q OTHER DAY 12/12/21 [History Last Taken Unknown] vitamin B complex 1 cap PO QODAY 06/17/22 [History Last Taken Unknown] metoprolol tartrate 25 mg tablet 25 mg PO BID HTN #180 tabs 10/07/22 [Rx Last Taken Unknown] losartan 25 mg tablet 25 mg PO BID 12/30/22 [History Last Taken Unknown] warfarin 2.5 mg tablet 2.5 mg PO .COMPLEX #90 tabs 12/30/22 [Rx Last Taken Unknown] warfarin 1 mg tablet 1 mg PO .COMPLEX #90 tabs 03/02/23 [Rx Last Taken Unknown] amoxicillin 875 mg-potassium clavulanate 125 mg tablet 1 tab PO Q12H 10 days #20 tabs 04/23/23 [Rx Last Taken Unknown] benzonatate 100 mg capsule 200 mg (2 x 100 mg) PO TID PRN cough #30 caps 04/23/23 [Rx Last Taken Unknown] hydrocodone-acetaminophen 5-325mg 5mg-325mg 1 tab PO Q6H PRN pain 7 days #20 tabs 05/02/23 [Rx Last Taken Unknown] prednisone 20 mg tablet 40 mg (2 x 20 mg) PO DAILY 7 days #14 tabs 05/02/23 [Rx Last Taken Unknown] Allergy/AdvReac Type Severity Reaction Status Date / Time No Known Allergies Allergy Verified 05/02/23 09:13 Family History Father CAD (coronary artery disease) Surgical History History of cardiac radiofrequency ablation (RFA) (~01/15/17) History of eye surgery (~10/2021) Social History Smoking Status: Former smoker how long ago did patient quit smoking: Smoked for 2 years as a teen alcohol intake: never substance use type: does not use caffeine: No ROS ROS ED ROS Narrative COVID 1 to 2 weeks ago. Symptoms resolved. Review of Systems ROS Unobtainable: Denies due to encephalopathy Constitutional Constitutional ED: Denies chills or fever(s) Eyes Eyes: Denies blurry vision ENT ENT ED: Denies ear pain Cardiovascular Cardiovascular: Denies chest pain Respiratory/Chest Respiratory/Chest: Denies cough or dyspnea Gastrointestinal Gastrointestinal: Denies abdominal pain Genitourinary Genitourinary ED: Denies dysuria or hematuria Musculoskeletal Musculoskeletal: Denies arthralgias Integumentary Denies abscess Neurologic Neurologic: Denies headache(s) Psychiatric Psychiatric: Denies anxiety or depression Endocrine Endocrinology: Denies polydipsia Hematologic/Lymphatic Hematologic/Lymphatic: Denies easy bleeding or easy bruising Allergic/Immunologic Allergic/Immunologic ED: Denies mouth swelling or tongue swelling EXAM Physical Exam Narrative Exam Narrative: Well-appearing 82-year-old female. Vital signs are stable and afebrile. H EENT exam unremarkable. Neck nontender. Lungs clear to auscultation bilaterally. Heart regular rate in the 80s. Chest wall and ribs nontender. Abdomen soft nontender. Back and SI joint nontender. Left hip mild tenderness. More with range of motion. Flexion extension intact. No shortening or rotation. Left knee, lower leg ankle and foot nontender. Normal range of motion. Normal dorsi plantarflexion. Right lower extremity nontender. Upper extremities unremarkable. She is awake and alert. Answering questions following commands. Const Vital Signs: 05/02/23 09:14 Temperature 97.2 F L Temperature Source Temporal Pulse Rate 84 Respiratory Rate 16 Blood Pressure 141/88 H Blood Pressure Mean 105 Pulse Ox 99 Oxygen Delivery Method Room Air Positive well nourished and well developed; Negative for cachectic, contractures or unkempt General Appearance ED: well developed and NAD; Negative for unkempt, cachectic or contractures Nutritional Appearance: Negative for cachectic HEENT Reports moist mucous membranes normocephalic and atraumatic; Negative for trauma or tenderness Eyes PERRL General Eye ED: Negative for other Neck full ROM and supple Thyroid: Negative for tender or other Lymph Lymphatic: other Chest Wall inspection of chest normal and palpation of chest normal Chest: Negative for other Resp normal respiratory effort and no retractions Effort and Inspection: Negative for pain with movement Auscultation: Negative for rales, rhonchi or wheezes Cardio regular rate, regular rhythm, S1 normal heart sound, S2 normal heart sound and no murmurs Rate: Negative for bradycardia or tachycardic Rhythm: Negative for abnormal rhythm Bruits: Negative for other GI non-tender, non-distended and no masses Inspection: Negative for abdominal distention Auscultation: normoactive bowel sounds Palpation: Negative for tender or guarding Bladder / Kidney Exam: No other Back/Spine no CVA tenderness General Back: Negative for CVA tenderness Cervical Spine: Negative for cervical spine tenderness Thoracic Spine / Upper Back: Negative for thoracic spinal tenderness Lumbar Spine / Lower Back: Negative for lumbar spinal tenderness Extremity normal to inspection and full ROM Extremity Narrative: Tenderness left hip more with range of motion. No shortening or deformity. Left knee flexion extension intact. Normal dorsi plantarflexion left foot. No edema or swelling. No calf tenderness. Redness or warmth. General Extremety ED: Negative for edema General Extremity: Negative for edema Neuro oriented x3 and CN's II-XII intact bilaterally Sensorium / Orientation: alert, oriented to person, oriented to place and oriented to time; Negative for orientation impaired, confused, lethargic or stuporous Motor Exam: strength 5/5 throughout Psych mental status grossly normal Appearance: Negative for unkempt Speech: No other Mood & Affect: Negative for anxious Skin no wounds Lesions: no lesions Rashes: no rashes Trauma: Negative for abrasion or laceration MDM MDM MDM Narrative Medical decision making narrative: 82-year-old female with atraumatic left hip pain and sounds like degenerative arthritis. She be given [employer] for pain and we are obtaining an x-ray of her left hip and pelvis. Repeat exam unchanged at 10:55 PM. I discussed with the patient her x-ray and outpatient follow-up. She preferred to see Dr. James Charles of [facility] so she will be referred to him. [employer] for pain. Prednisone for inflammation. History & Record Review Discussion w/independent historian: Patient and Family Additional record(s) reviewed:: Prior inpatient record, Prior outpatient record, Prior ED visit and Prior labs Radiography Diagnostic Testing: Left hip x-ray and pelvis shows no acute fracture nor dislocation. There is not significant arthritic changes. 3 views interpreted by myself. Discharge Plan Triage Chief Complaint: Lower Extremity Injury ED Provider: Jesus Miller Dx/Rx/DC Orders Clinical Impression: Arthritis, Acute pain of left hip Instructions: ED Osteoarthritis Prescriptions: New prednisone 20 mg tablet 40 mg PO DAILY 7 Days Qty: 14 0RF hydrocodone-acetaminophen 5-325 mg tablet 1 tab PO Q6H PRN (Reason: pain) 7 Days Qty: 20 0RF No Action cholecalciferol (vitamin D3) 2,000 unit capsule 2,000 unit PO QODAY levothyroxine 25 mcg tablet 12.5 mcg PO Q OTHER DAY losartan 25 mg tablet 25 mg PO BID warfarin 2.5 mg tablet 2.5 mg PO .COMPLEX Qty: 90 3RF Protocol: Dose Management Condition: Thursday Dose/Route: 3.5 mg Instruction: 1 x 1 mg tablet, 1 x 2.5 mg tablet Condition: Thursday Dose/Route: 3.5 mg Instruction: 1 x 1 mg tablet, 1 x 2.5 mg tablet Condition: Thursday Dose/Route: 3.5 mg Instruction: 1 x 1 mg tablet, 1 x 2.5 mg tablet Condition: Thursday Dose/Route: 3.5 mg Instruction: 1 x 1 mg tablet, 1 x 2.5 mg tablet Condition: Dose/Route: 3.5 mg Instruction: 1 x 1 mg tablet, 1 x 2.5 mg tablet Condition: Thursday Dose/Route: 3.5 mg Instruction: 1 x 1 mg tablet, 1 x 2.5 mg tablet Condition: Thursday Dose/Route: 3.5 mg Instruction: 1 x 1 mg tablet, 1 x 2.5 mg tablet Protocol Text: Adjustment Start Date: 04/02/23 INR Value: 2.8 INR Date: 04/02/23 Recheck Date: 05/02/23 Rx Instructions: 2.5 mg PO take with a 1 mg tablet to = 3.5 mg daily; benzonatate 100 mg capsule 200 mg PO TID PRN (Reason: cough) Qty: 30 0RF amoxicillin-pot clavulanate 875-125 mg tablet 1 tab PO Q12H 10 Days Qty: 20 0RF ascorbic acid (vitamin C) 1,000 MG tablet 500 mg PO BID Patient Comments: suppliment magnesium oxide 400 MG tablet 400 mg PO DAILY vitamin A 10,000 UNIT capsule 10,000 unit PO QODAY L.acidoph, paracasei,B. lactis 1 EACH capsule 1 ea PO DAILY vitamin B complex Capsule 1 cap PO QODAY [place] [facility] 1 tab PO DAILY methenamine hippurate 1 GM tablet 1 g PO DAILY metoprolol tartrate 25 mg tablet 25 mg PO BID Qty: 180 3RF warfarin 1 mg tablet 1 mg PO .COMPLEX Qty: 90 3RF Protocol: Dose Management Condition: Thursday Dose/Route: 3.5 mg Instruction: 1 x 1 mg tablet, 1 x 2.5 mg tablet Condition: Thursday Dose/Route: 3.5 mg Instruction: 1 x 1 mg tablet, 1 x 2.5 mg tablet Condition: Thursday Dose/Route: 3.5 mg Instruction: 1 x 1 mg tablet, 1 x 2.5 mg tablet Condition: Thursday Dose/Route: 3.5 mg Instruction: 1 x 1 mg tablet, 1 x 2.5 mg tablet Condition: Dose/Route: 3.5 mg Instruction: 1 x 1 mg tablet, 1 x 2.5 mg tablet Condition: Thursday Dose/Route: 3.5 mg Instruction: 1 x 1 mg tablet, 1 x 2.5 mg tablet Condition: Thursday Dose/Route: 3.5 mg Instruction: 1 x 1 mg tablet, 1 x 2.5 mg tablet Protocol Text: Adjustment Start Date: 04/02/23 INR Value: 2.8 INR Date: 04/02/23 Recheck Date: 05/02/23 Rx Instructions: 1 mg PO take with a 2.5 mg tablet to = 3.5 mg daily; Primary Care Provider: Yaya Brandt Chi Referrals: Jeff Charles MD [Med Staff - Active Staff] - As soon as possible Yaya Brandt Chi, MD [Primary Care Provider] - Activity Restrictions/Additional Instructions: No to be used for pain for your hip. No driving. Plenty of fluids and fiber to prevent constipation. Be careful on steps and be careful you do not fall. Follow-up with the orthopedic doctor for further evaluation of your hip. Clinically it sounds like arthritic hip pain. Disposition Disposition: Home, Self Care
[2023-05-02] MEDS: HYDROcodone Bitartrate/Apap 5/325 Tablet PO (10:13)
== END 2023-05-02 11:31 | disposition home or self-care (01) ==
PROVIDERS: Emergency Provider Emergency Medicine; PCP Family Medicine Geriatric Medicine; Referring Provider Emergency Medicine; Visit Provider Emergency Medicine
DX: M16.12 Unilateral primary osteoarthritis, left hip (principal); I48.91 Unspecified atrial fibrillation; E78.5 Hyperlipidemia, unspecified; Z87.891 Personal history of nicotine dependence; G89.29 Other chronic pain; I10 Essential (primary) hypertension; M25.552 Pain in left hip; Z79.01 Long term (current) use of 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s
CPT/HCPCS: 73502; 99282; A4216

== ENCOUNTER → 2023-05-04 | Outpatient (CLI) | payer MEDICARE, OTHER, SELFPAY ==
[2023-05-04 12:35] LABS: Absolute Lymphocyte Count 1.22 X10^3/uL (0.83-4.51); Absolute Neutrophil Count 14.1 X10^3/uL (2.0-7.7); Basophil# 0.02 X10^3/uL; Basophil% 0.1 % (0-1); Eosinophil# 0.03 X10^3/uL; Eosinophils% 0.2 % (0-5); Hematocrit 35.1 % (37-47); Lymphocyte # 1.22 X10^3/ul (0.83-4.51); Lymphocyte % 7.3 % (19-41); Mean Corp Hgb Conc 31.3 g/dL (32-36); Mean Corpuscular Volume 92.6 fL (81-99); Mean Platelet Vol. 10.9 fl (6.2-12.0); Monocyte# 1.19 X10^3/uL; Monocyte% 7.1 % (0-10); NRBC Flagged by Analyzer 0 % (0-5); Neutrophil # 14.08 X10^3/uL (2.7-7.7); Neutrophil % 84.5 % (47-70); Platelet Count 318 K/mm3 (150-450); RBC Distribution Width SD 50.4 fl (35.1-43.9); Red Blood Count 3.79 M/mm3 (4.2-5.4); White Blood Count 16.7 K/mm3 (4.4-11.0)
[2023-05-04 12:45] LABS: Vitamin D,25 Hydroxy 54.2 ng/mL
[2023-05-04 12:54] LABS: ALB/GLOB Ratio 0.8 RATIO (0.9-2.4); AST(SGOT) 25 U/L (15-37); Alanine Aminotransfer ALT/SGPT 31 U/L (13-56); Alkaline Phosphatase 81 U/L (45-117); Anion Gap 5 (5-15); BUN 37 mg/dL (7-18); Calcium,Total 8.7 mg/dL (8.5-10.1); Chloride 106 mmol/L (98-107); Creatinine, Serum 1.12 mg/dL (0.55-1.02); EST Glomerular Filtration Rate 50 mL/min (>60); Est Glom Filt Rate - Afr Amer 60 mL/min (>60); Globulin 3.8 g/dL (2.2-4.2); Glucose 119 mg/dL (74-106); Protein, Total 6.8 g/dL (6.4-8.2); Sodium Level 137 mmol/L (136-145)
== END | disposition home or self-care (01) ==
LOC: POLAB3 11:12
PROVIDERS: PCP Family Medicine Geriatric Medicine; Visit Provider Family Medicine Geriatric Medicine
DX: I10 Essential (primary) hypertension (principal); E55.9 Vitamin D deficiency, unspecified
CPT/HCPCS: 36415; 80053; 82306; 84443; 85025

== ENCOUNTER → 2023-05-06 | Outpatient (CLI) | payer MEDICARE, OTHER, SELFPAY ==
--- NOTE | 2023-05-06 16:40 | RAD_ITS ---
STUDY: X-RAY - LUMBAR SPINE REASON FOR EXAM: Female, 82 years old. LEG AND BACK PAIN TECHNIQUE: 2 view(s) of the lumbar spine were obtained. COMPARISON: None FINDINGS: Normal lumbar lordosis. Mild dextroscoliosis centered at L2. 5 mm of anterolisthesis of L4 on L5. Normal vertebral bodies and endplates. There is multi-level degenerative disc disease with multi-level disc space narrowing. There is multilevel facet hypertrophy. The soft tissue structures are unremarkable. RAD/Lumbar Spine 2 or 3 Views IMPRESSION: Mild dextroscoliosis with degenerative disc disease and 5 mm of anterolisthesis of L4 on L5. MRI may be useful. Electronically Signed: Satya Middleton MD at 23:00 EST ,
== END | disposition home or self-care (01) ==
PROVIDERS: PCP Family Medicine Geriatric Medicine; Referring Provider Anesthesiology Pain Medicine; Visit Provider Anesthesiology Pain Medicine
DX: M54.9 Dorsalgia, unspecified (principal); M79.606 Pain in leg, unspecified
CPT/HCPCS: 72100

== ENCOUNTER 2023-05-12 13:23 | Outpatient (RCR) | payer MEDICARE, OTHER, SELFPAY ==
[2023-04-24 03:24] VITALS: BMI 27.4
[2023-05-12 13:52] LABS: International Normalized Ratio 1.1; Prothrombin Time (Protime)PT. 14.3 SECONDS (11.7-14.9)
== END 2023-05-24 18:00 | disposition home or self-care (01) ==
LOC: LAB 13:23
PROVIDERS: Family Provider Family Medicine Geriatric Medicine; PCP Family Medicine Geriatric Medicine; Referring Provider Nurse Practitioner Family; Visit Provider Nurse Practitioner Family
DX: Z79.01 Long term (current) use of 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s (principal); I48.0 Paroxysmal atrial fibrillation; I48.92 Unspecified atrial flutter
CPT/HCPCS: 36415; 85610

== ENCOUNTER → 2023-05-13 | Outpatient (CLI) | payer MEDICARE, OTHER, SELFPAY ==
--- NOTE | 2023-05-13 11:51 | VDLE_ITS ---
Reason For Study: BLE Pain RIGHT LEFT GSV is dilated and NONCOMPRESSIBLE from GSV is normal. approximately 1.91cm distal from junction to CFV is compressible, spontaneous, phasic, the knee. Thrombosed Varocosities and ASV are competent, and demonstrates normal noted within the calf. augmentation. CFV is compressible, spontaneous, phasic, FV is compressible, spontaneous, phasic, competent and demonstrates normal competent and demonstrates normal augmentation. augmentation. FV is compressible, spontaneous, phasic, POP V is compressible, spontaneous, phasic, competent and demonstrates normal competent and demonstrates normal augmentation. augmentation. Acute deep vein thrombosis is noted in the T/P Trunk is compressible. POP V. It is dilated and NONCOMPRESSIBLE. PTV is compressible. Acute deep vein thrombosis is noted in the LT PerV is compressible. T/P Trunk. It is dilated and NONCOMPRESSIBLE. Acute deep vein thrombosis is noted in the Soleal Vein. It is dilated and NONCOMPRESSIBLE. Acute deep vein thrombosis is noted in the Per V. It is dilated and NONCOMPRESSIBLE. PTV is compressible. Procedure This is a venous duplex using B-mode, color flow and spectral Doppler. Exam performed in department. The exam was diagnostic. A preliminary report was called and/or faxed to Dr. Brandt. VL/Venous Duplex US - Luigi Extrem Interpretation Summary Acute deep vein thrombosis is noted in the right popliteal vein, tibioperoneal trunk vein, soleal vein, peroneal vein. Acute superficial vein thrombosis noted in the right great saphenous vein, acce ssory saphenous vein, and associated varicosities. Deep veins of the left lower extremity are patent and compressible segmentally. There is no evidence of left lower extremity deep vein thrombosis. The left great saphenous vein joss ears patent and compressible segmentally. Ordering Physician: Yaya Brandt Chi Referring Physician: Yaya Brandt Chi Performed By: Rodríguez Leija, RVT
== END | disposition home or self-care (01) ==
LOC: CVS 11:50
PROVIDERS: PCP Family Medicine Geriatric Medicine; Referring Provider Family Medicine Geriatric Medicine; Visit Provider Family Medicine Geriatric Medicine
DX: M79.661 Pain in right lower leg (principal); R60.0 Localized edema
CPT/HCPCS: 93970

== ENCOUNTER 2023-05-22 15:17 | Emergency (ER) | payer MEDICARE, OTHER, SELFPAY ==
--- NOTE | 2023-05-22 15:28 | EX.ED.GENINJ ---
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 lactis 10 billion cell capsule 1 ea PO DAILY 03/21/19 [History Last Taken 03/21/19] magnesium oxide 400 mg (241.3 mg magnesium) tablet 400 mg PO DAILY 03/21/19 [History Last Taken 03/21/19] vitamin A 3,000 mcg (10,000 unit) capsule 10,000 unit PO QODAY SUPPLEMENT 03/21/19 [History Last Taken 03/21/19] methenamine hippurate 1 gram tablet 1 g PO DAILY to prevent UTI 06/14/20 [History Last Taken Unknown] [facility] 1 tab PO DAILY eye health 06/21/20 [History Last Taken Unknown] levothyroxine 25 mcg tablet 12.5 mcg PO Q OTHER DAY 12/12/21 [History Last Taken Unknown] vitamin B complex 1 cap PO QODAY 06/17/22 [History Last Taken Unknown] metoprolol tartrate 25 mg tablet 25 mg PO BID HTN #180 tabs 10/07/22 [Rx Last Taken Unknown] losartan 25 mg tablet 25 mg PO BID 12/30/22 [History Last Taken Unknown] warfarin 2.5 mg tablet 2.5 mg PO .COMPLEX #90 tabs 12/30/22 [Rx Last Taken Unknown] warfarin 1 mg tablet 1 mg PO .COMPLEX #90 tabs 03/02/23 [Rx Last Taken Unknown] benzonatate 100 mg capsule 200 mg (2 x 100 mg) PO TID PRN cough #30 caps 04/23/23 [Rx Last Taken Unknown] hydrocodone-acetaminophen 5-325mg 5mg-325mg 1 tab PO Q6H PRN pain 7 days #20 tabs 05/02/23 [Rx Last Taken Unknown] prednisone 20 mg tablet 40 mg (2 x 20 mg) PO DAILY 7 days #14 tabs 05/02/23 [Rx Last Taken Unknown] Allergy/AdvReac Type Severity Reaction Status Date / Time No Known Allergies Allergy Verified 05/02/23 09:13 Family History Father CAD (coronary artery disease) Surgical History History of cardiac radiofrequency ablation (RFA) (~01/15/17) History of eye surgery (~10/2021) Social History Smoking Status: Former smoker how long ago did patient quit smoking: Smoked for 2 years as a teen alcohol intake: never substance use type: does not use caffeine: No EXAM Physical Exam Const Vital Signs: 05/22/23 15:31 05/22/23 17:12 Temperature 98.1 F Temperature Source Temporal Pulse Rate 82 89 Respiratory Rate 22 H 17 Blood Pressure 138/68 H Blood Pressure Mean 91 Pulse Ox 98 98 Oxygen Delivery Method Room Air [facility] [place] Narrative Medical decision making narrative: HISTORY OF PRESENT ILLNESS: 83-year-old female here with concern for laceration. REVIEW OF SYSTEMS: Pertinent positives: Laceration Pertinent negatives: Tingling, loss of sensation PHYSICAL EXAM: Nursing triage notes reviewed, Vital signs reviewed Constitutional: please see mdm Extremities: 2+ pitting edema noted bilaterally (chronic per patient) Neuro: Intact sensation L1-S1 dermatomal distributions. Intact 5/5 strength in hip flexion (T12-L3). Knee extension (L2-L4). Ankle dorsiflexion (L4-L5). Ankle plantar flexion (S1). Great toe extension (L5). 2+ patellar and Achilles DTRs. Skin: superficial Laceration noted left lower leg, anterior tibia with a semicircular shaped superficial linear laceration is approximately 10 cm in length that goes across medial lower leg to the lateral lower leg. Bleeding is controlled MEDICAL DECISION MAKING: Chief Complaint: Laceration External records reviewed: Recent ED visit for left hip pain noted on 05/02/2023 Factors affecting care: Atrial fibrillation on warfarin Social determinants of health: Elderly History obtained from others: none Consults: none [facility] Narrative: Procedure: Laceration repair. The procedure was performed by myself. Indication: Wound repair Risks and benefits: risks, benefits and alternatives were discussed Consent: Consent was obtained. Wound Details: Left lower tibial semicircular shaped laceration, approximate 2 cm in length, superficial approximate 1 mm in depth, no underlying tissues noted, no foreign bodies, bleeding controlled Anesthesia: 1% lidocaine without epinephrine Wound prep: Patient was prepped and draped in the usual sterile fashion. Tetanus: Today within the last 10 years, no indication for update at this time Irrigation Solution: Saline Wound Preparation: Irrigated with copious normal saline chlorhexidine provided for wound cleansing The wound was explored to its base in a bloodless field. Procedure Description very complex wound, extensive undermining with absorbable 5-0 Chromic Gut sutures then 13 nonabsorbable 3-0 Ethilon sutures were placed with close approximation Patient tolerated the procedure well with no immediate complications The patient and/or family, caregivers express understanding. The patient and/or family, caregivers agrees with the plan. Shared decision making: I will have a discussion with the patient and or visitors regarding risk/benefits of further testing or admission. They will be made aware of of the risk/benefits inherent in this decision they will be given the opportunity to voice understanding. Total critical care time today provided was at least 0 minutes. This excludes separately billable procedures. Critical care time (if documented) is secondary to the patient having high probability of clinically significant/life threatening deterioration in the patient's condition which required my urgent intervention. Impression: 1. Leg laceration 2. Chronic anticoagulation use Dispo: Discharge Discharge Plan Triage Chief Complaint: Laceration ED Provider: Con Hinkle Dx/Rx/DC Orders Instructions: ED Laceration Extremity Prescriptions: No Action cholecalciferol (vitamin D3) 2,000 unit capsule 2,000 unit PO QODAY levothyroxine 25 mcg tablet 12.5 mcg PO Q OTHER DAY losartan 25 mg tablet 25 mg PO BID warfarin 2.5 mg tablet 2.5 mg PO .COMPLEX Qty: 90 3RF Protocol: Dose Management Condition: Thursday Dose/Route: 3.5 mg Instruction: 1 x 1 mg tablet, 1 x 2.5 mg tablet Condition: Thursday Dose/Route: 3.5 mg Instruction: 1 x 1 mg tablet, 1 x 2.5 mg tablet Condition: Thursday Dose/Route: 3.5 mg Instruction: 1 x 1 mg tablet, 1 x 2.5 mg tablet Condition: Thursday Dose/Route: 3.5 mg Instruction: 1 x 1 mg tablet, 1 x 2.5 mg tablet Condition: Dose/Route: 3.5 mg Instruction: 1 x 1 mg tablet, 1 x 2.5 mg tablet Condition: Thursday Dose/Route: 3.5 mg Instruction: 1 x 1 mg tablet, 1 x 2.5 mg tablet Condition: Thursday Dose/Route: 3.5 mg Instruction: 1 x 1 mg tablet, 1 x 2.5 mg tablet Protocol Text: Adjustment Start Date: 04/02/23 INR Value: 2.8 INR Date: 04/02/23 Recheck Date: 05/02/23 Rx Instructions: 2.5 mg PO take with a 1 mg tablet to = 3.5 mg daily; benzonatate 100 mg capsule 200 mg PO TID PRN (Reason: cough) Qty: 30 0RF ascorbic acid (vitamin C) 1,000 MG tablet 500 mg PO BID Patient Comments: suppliment magnesium oxide 400 MG tablet 400 mg PO DAILY vitamin A 10,000 UNIT capsule 10,000 unit PO QODAY L.acidoph, paracasei,B. lactis 1 EACH capsule 1 ea PO DAILY vitamin B complex Capsule 1 cap PO QODAY [facility] 1 tab PO DAILY methenamine hippurate 1 GM tablet 1 g PO DAILY prednisone 20 mg tablet 40 mg PO DAILY 7 Days Qty: 14 0RF hydrocodone-acetaminophen 5-325 mg tablet 1 tab PO Q6H PRN (Reason: pain) 7 Days Qty: 20 0RF metoprolol tartrate 25 mg tablet 25 mg PO BID Qty: 180 3RF warfarin 1 mg tablet 1 mg PO .COMPLEX Qty: 90 3RF Protocol: Dose Management Condition: Thursday Dose/Route: 3.5 mg Instruction: 1 x 1 mg tablet, 1 x 2.5 mg tablet Condition: Thursday Dose/Route: 3.5 mg Instruction: 1 x 1 mg tablet, 1 x 2.5 mg tablet Condition: Thursday Dose/Route: 3.5 mg Instruction: 1 x 1 mg tablet, 1 x 2.5 mg tablet Condition: Thursday Dose/Route: 3.5 mg Instruction: 1 x 1 mg tablet, 1 x 2.5 mg tablet Condition: Dose/Route: 3.5 mg Instruction: 1 x 1 mg tablet, 1 x 2.5 mg tablet Condition: Thursday Dose/Route: 3.5 mg Instruction: 1 x 1 mg tablet, 1 x 2.5 mg tablet Condition: Thursday Dose/Route: 3.5 mg Instruction: 1 x 1 mg tablet, 1 x 2.5 mg tablet Protocol Text: Adjustment Start Date: 04/02/23 INR Value: 2.8 INR Date: 04/02/23 Recheck Date: 05/02/23 Rx Instructions: 1 mg PO take with a 2.5 mg tablet to = 3.5 mg daily; Primary Care Provider: Yaya Brandt Chi Referrals: Yaya Brandt Chi, MD [Primary Care Provider] - Activity Restrictions/Additional Instructions: Thank you for trusting us with your care today! Please take Tylenol (2 pills, 650 mg) every 6 hours as needed for pain and fever control. Please clean your wound daily. Please change your dressings daily. Please apply topical antimicrobial limits such as Neosporin and peroxide for the first 48 hours. After 24 hours may clean your wound with soap and water. Please return to the emergency department if your symptoms change or worsen. If you develop increasing pain, redness, white-yellow discharge disease or signs of infection. The signs develop please return immediately. Your nonabsorbable sutures will need to come out in approximately 7 to 10 days. Please return to the emergency department, urgent care or your primary care doctor's office for removal Please follow with your primary care physician for further outpatient evaluation and management. Disposition Disposition: Home, Self Care Discharge Date/Time: 05/22/23 17:13
[2023-05-22 15:31] VITALS: BP 138/68; PULSE 82; RESP 22; TEMP 36.7; O2SAT 98
[2023-05-22 17:12] VITALS: PULSE 89; RESP 17; O2SAT 98
== END 2023-05-22 17:13 | disposition home or self-care (01) ==
LOC: ED 17:05
PROVIDERS: Emergency Provider Emergency Medicine; PCP Family Medicine Geriatric Medicine; Referring Provider Emergency Medicine; Visit Provider Emergency Medicine
DX: S81.812A Laceration without foreign body, left lower leg, initial encounter (principal); I48.0 Paroxysmal atrial fibrillation; Z87.891 Personal history of nicotine dependence; Z79.01 Long term (current) use of 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s; I10 Essential (primary) hypertension; W26.8XXA Contact with other sharp object(s), not elsewhere classified, initial encounter
CPT/HCPCS: 12004; 99282

== ENCOUNTER 2023-05-27 01:18 | Emergency (ER) | payer MEDICARE, OTHER, SELFPAY ==
[2023-05-27 01:20] VITALS: BP 140/74; PULSE 82; RESP 20; TEMP 36.5; O2SAT 98; BMI 29.7
--- OUTSIDE RECORDS SUMMARY | 2023-05-27 01:35 | XMS RPT_ITS | CCD ---
Author Name Unknown Address [address] [place] [address] Organization [facility] Care Team Providers Care [employer] Worker Name Role Phone Unavailable Unavailable Unavailable MICHELLE, CAROLINE E Unavailable Unavailable MICHELLE, CAROLINE E Unavailable Unavailable MICHELLE, CAROLINE E Unavailable Unavailable MICHELLE, CAROLINE E Unavailable Unavailable MICHELLE, CAROLINE Unavailable Unavailable MICHELLE, CAROLINE Unavailable Unavailable MICHELLE, CAROLINE Unavailable Unavailable MICHELLE, CAROLINE Unavailable Unavailable MICHELLE, CAROLINE Unavailable Unavailable MICHELLE, CAROLINE Unavailable Unavailable IRA, DELFINO-CHI Unavailable Unavailable MICHELLE, CAROLINE Unavailable Unavailable MICHELLE, CAROLINE Unavailable Unavailable IRA, DELFINO-CHI Unavailable Unavailable NovySatnama M Unavailable Unavailable Novjennifer, Jose Alejandro M Unavailable Unavailable Novjennifer, Jose Alejandro M Unavailable Unavailable Novjennifer, Jose Alejandro M Unavailable Unavailable JOSE ALEJANDRO BROOKE Unavailable Unavailable Ira, Delfino Chi Primary Care Provider Ira, Delfino Chi Primary Care Provider Christina Santizo MD Unavailable Un available Ira, Delfino Chi Primary Care Provider Christina Santizo MD Unavailable Un available Ira, Delfino Chi Primary Care Provider [phone] Christina Santizo MD Unavailable Un available IRA, DELFINO CHI Primary Care Unavailable CHRISTINA SANTIZO Referring Unava ilable CHRISTINA SANTIZO Attending Unava ilable Ira, Dlefino Chi Primary Care Provider Christina Santizo MD Unavailable Un available IRA, DELFINO CHI Primary Care Unavailable JOSE ALEJANDRO BROOKE Referring Unavailable JOSE ALEJANDRO BROOKE Admitting Unavailable IRA, DELFINO CHI Primary Care Unavailable IRA, DELFINO CHI Primary Care Unavailable JOSE ALEJANDRO BROOKE Admitting Unavailable Medications Current Medications Medication Drug Class(es) Dates Sig (Normalized) Sig (Original) perflutren lipid microspheres 1.3 mL in NaCl (PF) 0.9% 10 mL injection (DEFINITY) (4 sources) Start: 11-13-2020 End: 02-12-2022 perflutren lipid microspheres 1.3 mL in NaCl (PF) 0.9% 10 mL injection (DEFINITY) 125 ml sodium chloride 9 mg/ml prefilled syringe (4 sources) Start: 11-13-2020 End: 02-12-2022 sodium chloride 0.9 % (flush) 10 mL (BD POSIFLUSH) Completed/Discontinued Medications Medication Drug Class(es) Dates Sig (Normalized) Sig (Original) acetaminophen 325 mg oral tablet (10 sources) Start: 09-27-2020 take 2 tablets by mouth every four hours as needed acetaminophen (TYLENOL) 325 mg tablet Take 2 tablets by mouth every 4 hours as needed. 0 09/27/2020 Active Problems Active Problems Problem Classification Problem Date Documented Date Episodic/Chronic Acute cerebrovascular disease (10 sources) Cerebrovascular accident; Translations: [Cerebral infarction, unspecified] Onset: 09-14-2012 09-14-2012 Chronic Cardiac dysrhythmias (20 sources) Paroxysmal atrial fibrillation; Translations: [Atrial fibrillation] Onset: 09-14-2012 10-17-2020 Chronic Conduction disorders (14 sources) Cardiac pacemaker in situ; Translations: [Presence of cardiac pacemaker] Onset: 04-30-2021 04-30-2021 Chronic Essential hypertension (14 sources) Essential (primary) hypertension; Translations: [Hypertensive disorder] Onset: 09-14-2012 09-14-2012 Chronic Other and ill-defined heart disease (2 sources) Heart disease, unspecified; Translations: [Heart disease, unspecified] Onset: 05-21-2023 Chronic Other and unspecified benign neoplasm (2 sources) Benign neoplasm of cerebral meninges; Translations: [Benign neoplasm of cerebral meninges] Onset: 10-16-2022 Chronic Thyroid disorders (5 sources) Graves' disease; Translations: [Hypothyroidism, unspecified] Onset: 10-16-2022 Chronic Unclassified (1 source) Unknown / UNK(Unknown) Onset: 09-14-2012 Unclassified (1 source) Longstanding persistent atrial fibrillation; Translations: [Longstanding persistent atrial fibrillation (HCC)] Onset: 10-17-2020 Past or Other Problems Problem Classification Problem Date Documented Da te Episodic/Chronic Other aftercare (2 sources) Other jail (current) drug therapy; Translations: [Other exterminator termite (current) drug therapy] Onset: 10-16-2022 Episodic Other gastrointestinal disorders (2 sources) Constipation, unspecified; Translations: [Constipation, unspecified] Onset: 10-16-2022 Episodic Residual codes; unclassified (2 sources) Personal history of irradiation; Translations: [Personal history of irradiation] Onset: 10-16-2022 Episodic Results Test Name Value Interpretation Reference Range Facil ity Vital Signs Date Time Vital Sign Value Performing Clinician Facjeremias lity 11-11-2022 14:24-0400 Body height 167.6 cm Christina Pace MD Work Phone: [facility] 11-11-2022 14:24-0400 Body weight 83.55 kg Christina Pace MD Work Phone: [facility] 11-11-2022 14:24-0400 Diastolic blood pressure 81 mm[Hg] Christina Pace MD Work Phone: [facility] 11-11-2022 14:24-0400 Heart rate 84 /min Christina Pace MD Work Phone: [facility] 11-11-2022 14:24-0400 Systolic blood pressure 143 mm[Hg] Christina Pace MD Work Phone: [facility] 11-05-2021 09:56-0400 Body height 167.6 cm Christina Pace MD Work Phone: [facility] 11-05-2021 09:56-0400 Body weight 82.56 kg Christina Pace MD Work Phone: [facility] 11-05-2021 09:56-0400 Diastolic blood pressure 88 mm[Hg] Christina Pace MD Work Phone: [facility] 11-05-2021 09:56-0400 Heart rate 89 /min Christina Pace MD Work Phone: [facility] 11-05-2021 09:56-0400 Systolic blood pressure 138 mm[Hg] Christina Pace MD Work Phone: [facility] Encounters Encounter Date Encounter Type Care Provider Facility Start: 05-21-2023 End: 05-25-2023 ambulatory [facility] Start: 05-03-2023 Follow-up encounter Christina Pace MD Work Phone: [facility] Start: 05-03-2023 Pacemaker Remote F/U Christina Pace MD Work Phone: [facility] Start: 02-02-2023 Follow-up encounter Christina Pace MD Work Phone: [facility] Start: 02-02-2023 Pacemaker Remote F/U Christina Pace MD Work Phone: [facility] Start: 11-11-2022 End: 11-12-2022 ambulatory [facility] Facility:[facility] Start: 11-11-2022 End: 11-11-2022 Patient encounter procedure Christina Pace MD Work Phone: Cardiology Procedures Date Procedure Procedure Detail Performing Clinician Start: 05-03-2023 PACEMAKER REMOTE CHECK Christina Pace MD Work Phone: Start: 02-02-2023 PACEMAKER REMOTE CHECK Christina Pace MD Work Phone: Start: 11-03-2022 PACEMAKER REMOTE CHECK Christina Pace MD Work Phone: Start: 08-05-2022 PACEMAKER REMOTE CHECK Christina Pace MD Work Phone: Start: 05-05-2022 PACEMAKER REMOTE CHECK Christina Pace MD Work Phone: Start: 02-04-2022 PACEMAKER REMOTE CHECK Christina Pace MD Work Phone: Start: 11-05-2021 PACEMAKER CLINIC CHECK Christina Pace MD Work Phone: Start: 11-22-2019 Thyroid uptake w/blo od flow sngle/mult kourtney reji External Transcribed Start: 01-06-2013 Adult depression screening assessment Research Coordinator Work Phone: Plan of Treatment Date Care Activity Detail Author Start: 12-12-2025 Urine microalbumin profile DTaP,Tdap,Td Vaccine (2 - Td or Tdap) [facility] Start: 10-16-2025 Diabetes Screening Diabetes Screening [facility] Start: 06-07-2024 DIABETES SCREEN DIABETES SCREEN [facility] Start: 06-07-2024 Diabetes Screening Diabetes Screening [facility] Start: 01-23-2023 Influenza vaccination [facility] Start: 05-25-2022 ADVANCE DIRECTIVE DISCUSSION ADVANCE DIRECTIVE DISCUSSION [facility] Start: 05-25-2022 DEPRESSION ASSESSMENT DEPRESSION ASSESSMENT [facility] Start: 01-23-2022 Influenza vaccination [facility] Start: 05-25-2021 ADVANCE DIRECTIVE DISCUSSION ADVANCE DIRECTIVE DISCUSSION [facility] Start: 05-25-2021 DEPRESSION ASSESSMENT DEPRESSION ASSESSMENT [facility] Start: 01-24-2020 Influenza vaccination given Sequential Influenza Vaccine (Season Ended) [facility] Start: 11-22-2019 End: 11-22-2019 Appointment 11/22/2019 Appointment Radiology Jose Alejandro Brooke MD [address] [place] [address] [phone] [facility] Start: 01-06-2014 Adult depression screening assessment DEPRESSION SCREENING [facility] Start: 2007 BONE DENSITY BONE DENSITY [facility] Start: 2007 Bone Density Screening Bone Density Screening [facility] Start: 2007 Pneumococcal vaccination Pneumococcal Vaccine Age 65+ (1 of 2 - PCV13) [facility] Start: 2007 Pneumococcal Vaccine: 65+ (1 - PCV) Pneumococcal Vaccine: 65+ (1 - PCV) [facility] Start: 2007 PNEUMOCOCCAL: 65+ (1 - PCV) PNEUMOCOCCAL: 65+ (1 - PCV) [facility] Start: 2007 PNEUMOVAX AGE 65 AND OVER WITH 5YR LOOKBACK (#1) PNEUMOVAX AGE 65 AND OVER WITH 5YR LOOKBACK (#1) [facility] Start: 2007 Screening for osteoporosis Bone Density Screening [facility] Start: 2002 RSV Vaccine (1 - 1-dose 60+ series) RSV Vaccine (1 - 1-dose 60+ series) [facility] Start: 1992 Administration of herpes zoster vaccine Zoster Vaccines (1 of 2) [facility] Start: 1992 SHINGRIX VACCINE (1 of 2) SHINGRIX VACCINE (1 of 2) [facility] Start: 1961 Urine microalbumin profile [facility] Start: 1960 ANNUAL PCP TEAM CHRONIC DISEASE VISIT ANNUAL PCP TEAM CHRONIC DISEASE VISIT [facility] Start: 1960 BP CONTROLLED (<130/80) BP CONTROLLED (<130/80) [facility] Start: 1947 COVID-19 VACCINE (#1) COVID-19 VACCINE (#1) [facility] Start: 1947 COVID-19 VACCINE (1) COVID-19 VACCINE (1) [facility] Start: 1945 History and physical examination, annual for health maintenance Wellness Visit [facility] Start: 1942 COVID-19 VACCINE (#1) COVID-19 VACCINE (#1) [facility] Start: 1942 Fall risk assessment Falls Risk Assessment [facility] Start: 1942 Screening for osteoporosis Dexa Scan [facility] Start: 1942 Screening mammography Mammogram [facility] Start: 1942 Tetanus vaccination Tetanus: Every 10yrs [facility] ECG COMPLETE ECG COMPLETE ECG Routine Longstanding persistent atrial fibrillation (HCC) Pacemaker Ordered: 11/11/2022 [facility] Work Phone: Payers Date Payer Category Payer Unknown [id number] 2007 Unknown HOSPITAL/MEDICAL GENERIC MEDICAL GENERIC [id number] 2007-Present [phone] [address] [place] [address] Indemnity [id number] 2007 Unknown HOSPITAL/MEDICAL GENERIC MEDICAL GENERIC [id number] 2007-Present [phone] [address] [place] [address] Indemnity [id number] 2007 Medicare [id number] 2007 Medicare MEDICARE MEDICAR E PART A & B xxxxxxxxxxx 2007-Present [place] xxxxxxxxxxx [id number] 2007 Medicare MEDICARE MEDICAR E A AND B [id number] 2007-Present [phone] [place] [address] Medicare [id number] 2007 Medicare MEDICARE MEDICAR E A AND B [id number] 2007-Present [phone] [place] [address] Medicare [id number] 1942 Unknown [id number] 1942 Unknown [id number] 1942 Unknown [id number] Medicare [id number] Unknown COMMERCIAL COMME RCIAL MISCELLANEOUS xxxxxxx Effective for all dates xxxxxxx [id number] Social History Date Type Detail Facility Tobacco smoking stat [facility] Unknown if ever smoked [facility] Start: 1940 Sex Assigned At Not on file [facility] Start: 11-21-2019 Tobacco smoking stat [facility] Unknown if ever smoked [facility] Start: 11-17-2016 [facility] Start: 11-17-2016 Tobacco use and exposure Smoke less tobacco non-user [facility] Start: 11-13-2020 End: 11-11-2022 Alcohol intake Current non-drinker of alcohol (finding) [facility] Start: 11-17-2016 [facility] of tobacco use Current smoker [facility] Start: 12-27-2018 End: 11-11-2022 History of Social function [facility] Start: 12-27-2018 End: 11-11-2022 Tobacco use panel [facility] PHQ2 Score 0 [facility] Clinical Notes 09-24-2020 to 11-11-2022 Christina Pace MD - 11/11/2022 2:30 PM EDTChjenny Pace MD - 11/05/2021 10:30 AM EDTTelephone Encounter - Inga Ham [facility] - 08/30/2021 2:18 PM EDT Note Date & Type Note Facility 11-11-2022 History and physi mari note Images from the original note were not included. [facility] Department of Cardiovascular Medicine SECTION OF CARDIAC PACING and ELECTROPHYSIOLOGY OUTPATIENT VISIT DATE November 11, 2022 OUTPATIENT VISIT TYPE ESTABLISHED PRIMARY CARE PHYSICIAN: Delfino Brandt MD [address] [address] REFERRING PHYSICIAN: Christina Pace [address] [facility] [address] CHIEF COMPLAINT: Permanent atrial fibrillation, complete heart block, pacemaker management HISTORY OF PRESENT ILLNESS: Ms. Nguyen is a 82 year old female who presents today for follow-up visit --- doing well overall. She denies chest pain, shortness of breath, orthopnea, cough, edema, palpitations, PND, lightheadedness or syncope. PAST CARDIAC HISTORY: PAST MEDICAL HISTORY Diagnosis Date Atrial fibrillation (HCC) Dysgraphia Hypertension Pacemaker 09/24/[address] MILLER, his bundle lead & right atrial lead, Palpitations Speech disturbance Stroke (HCC) PAST SURGICAL HISTORY Procedure Laterality Date CARDIAC CATH 1989 MRI GAMMA KNIFE LOCAL W CONTR 01-23-2013 POST COLPORRHAPHY RECTOCELE W/WO PERINEORRHAPHY 10-23-1994 SCOPE, PLANTAR FASCIOTOMY 12-23-2009 SOCIAL HISTORY Social History Tobacco Use Smoking status: Former Smokeless tobacco: Never Tobacco comments: years ago Substance Use Topics Alcohol use: No Drug use: No FAMILY HISTORY Problem Relation Age of Onset Arthritis Mother Arthritis Father Coronary Artery Disease Father ALLERGIES: ALLERGIES No Known Allergies MEDICATIONS: losartan (COZAAR) 25 mg tablet Take 1 tablet by mouth once daily. levothyroxine (SYNTHROID) 25 mcg tablet Takes every other day metoprolol tartrate, short acting, (LOPRESSOR) 50 mg tablet Take 1/2 tablet by mouth twice daily. warfarin (COUMADIN) 2 mg tablet Take 1.5 tablets by mouth once daily. Take 1 tablet by mouth once daily; take in addition to 1 mg tablet for total of 3.5 mg daily. acetaminophen (TYLENOL) 325 mg tablet Take 2 tablets by mouth every 4 hours as needed. magnesium oxide (MAG-OX) 400 mg (241.3 mg magnesium) tablet Take 1 tablet by mouth once daily. warfarin (COUMADIN) 1 mg tablet Take 1 tablet by mouth once daily. Take 1 tablet by mouth once daily; take in addition to 2.5 mg tablet for total of 3.5 mg daily. Cholecalciferol, Vitamin D3, (VITAMIN D-3) 2,000 unit cap Take 2,000 Units by mouth every other day. ascorbic acid (VITAMIN C) 500 mg tablet Take 500 mg by mouth once daily. Twice daily vitamin A (AQUASOL A) 10,000 unit capsule Take 10,000 Units by mouth every other day. REVIEW OF SYSTEMS: GENERAL: Negative for: Weight loss or gain, Fever or Chills, Weakness and Sleep difficulties. HEENT: Negative for: Headache, Impaired Vision, Glasses, Hearing Impairment, Ringing in Ears, Nosebleeds, Poor dental care, Bleeding Gums, Dentures NECK: Negative for: Swelling, Pain, Stiffness RESPIRATORY: Negative for: Cough, Blood in Sputum, Shortness of breath, Wheezing, Apnea GASTROINTESTINAL: Negative for: Trouble swallowing, Heartburn, Change in bowel habits, Blood in stool, Dark black stools MUSCULOSKELETAL: Negative for: Muscle or joint pain, Stiffness , Joint swelling NEUROLOGIC/PSYCHIATRIC: Negative for: Weakness, Paralysis, Numbness, Tingling, Tremor, Nervousness, Depressed mood, Memory loss SKIN: Negative for: Rashes, Itching HEMATOLOGICAL/LYMPHATIC: Negative for: Easy bruising , Easy bleeding ENDOCRINE: Negative for: Heat or cold intolerance, Excessive sweating, Frequent urination, Frequent thirst PHYSICAL EXAMINATION: BP 143/81 Pulse 84 Ht 167.6 cm (5' 6 ) Wt 83.6 kg (184 lb 3.2 oz) BMI 29.73 kg/m General: Well appearing, in no acute distress. Skin: No clubbing, no cyanosis. Eyes: Extra ocular movements intact Oropharynx: Teeth in good repair. Neck: No jugular venous distention, no carotid bruits, carotids have a normal upstroke, no palpable thyromegaly. Lungs: Clear to auscultation bilaterally, no wheezing or rhonchi. Heart: Regular rhythm, PMI not displaced, S1, S2 normal, no S3, no S4, no heaves, no rub and no murmur. Abdomen: Soft, nontender, bowel sounds normal, no palpable organomegaly, no bruits. Extremities: No peripheral edema . Grade 2/4 distal pulses bilaterally. Neuro: Oriented to person, place and time, alert, cooperative, gait coordinated. CARDIOVASCULAR MEDICINE TESTING: Electrocardiogram: Atrial fibrillation, RV pacing (QRS 120 ms) I have personally reviewed the Electrocardiogram and Device Check. Assessment IMPRESSION: Ms. Nguyen is a inactive 82 year-old female with hypertensive heart disease and long-standing atrial fibrillation (dates back at least 20 years advanced left atrial remodeling) -- she is highly symptomatic with AF/tachycardia and a rhythm control strategy has been in place since 2012. Over the years she has demonstrated refractoriness to flecainide and sotalol. Amiodarone was utilized short-term, but according to the patient developed thyroid problems general he was poorly tolerated. She underwent a catheter-based pulmonary vein antral isolation with substrate modification in December 2016, followed by a redo ablation in December 2018. With the most recent procedure which was quite challenging technically, and atrial flutter was induced but not mapped due to degeneration into atrial fibrillation. Thereafter, She continued to have recurrent episodes of atrial tachyarrhythmia, always associated with RVR, significant symptom burden many times prompting ER visitation --- this is proven refractory to even highest dose sotalol (120 mg twice daily). She underwent AV junction ablation October 17, 2020 with good outcome And with complete elimination of the aforementioned symptoms. Sotalol has subsequently been stopped. Blood pressure today in office is elevated. She also checks readings at home and has gotten measurements 150 over 90s. I advised increasing metoprolol to 50 mg twice daily, but she was adamant that she could not tolerate higher dose beta-nely in the past. She agreed to increasing losartan to 25 mg twice daily (her preference rather than 50 mg daily) Callie is overall doing well. At this point in time we will continue to follow her pacemaker on a quarterly basis remotely. In person visits will be on an annual basis with device clinic checks coinciding. Christina Pace MD Electrophysiology staff pager [phone] November 11, 2022 3:17 PM documented in this encounter [facility] 11-05-2021 History and physi mari note Images from the original note were not included. [facility] Department of Cardiovascular Medicine SECTION OF CARDIAC PACING and ELECTROPHYSIOLOGY OUTPATIENT VISIT DATE November 05, 2021 OUTPATIENT VISIT TYPE ESTABLISHED PRIMARY CARE PHYSICIAN: Delfino Brandt MD [address] [address] REFERRING PHYSICIAN: Phyllis Currie [id number] [address] [facility] [id number] CHIEF COMPLAINT: Permanent atrial fibrillation, pacemaker, AV junction ablation HISTORY OF PRESENT ILLNESS: Ms. Nguyen is a 81 year old female who presents today for follow-up visit --- since I last saw Callie a year ago and since undergoing AV junction ablation she has had no further episodes of extreme tachycardia. These previously, AF with RVR, resulted in such severe symptoms that prompted ER visitation. There has been no resurgence since. She is doing well. Reports only minimal shortness of breath with heavier level exertion. No symptoms of congestive heart failure. She denies chest pain, shortness of breath, orthopnea, cough, edema, palpitations, PND, lightheadedness or syncope. PAST CARDIAC HISTORY: PAST MEDICAL HISTORY Diagnosis Date Atrial fibrillation (HCC) Dysgraphia Hypertension Pacemaker 09/24/2020 med[employer] MILLER, his bundle lead & right atrial lead, Palpitations Speech disturbance Stroke (HCC) PAST SURGICAL HISTORY Procedure Laterality Date CARDIAC CATH 1989 MRI GAMMA KNIFE LOCAL W CONTR 01-23-2013 POST COLPORRHAPHY,RECTUM/VAGINA 10-23-1994 SCOPE, PLANTAR FASCIOTOMY 12-23-2009 SOCIAL HISTORY Social History Tobacco Use Smoking status: Former Smoker Smokeless tobacco: Never Used Tobacco comment: years ago Substance Use Topics Alcohol use: No Drug use: No FAMILY HISTORY Problem Relation Age of Onset Arthritis Mother Arthritis Father Coronary Artery Disease Father ALLERGIES: ALLERGIES No Known Allergies MEDICATIONS: losartan (COZAAR) 25 mg tablet Take 1 tablet by mouth once daily. metoprolol tartrate, short acting, (LOPRESSOR) 50 mg tablet Take 1/2 tablet by mouth twice daily. warfarin (COUMADIN) 2 mg tablet Take 1.5 tablets by mouth once daily. Take 1 tablet by mouth once daily; take in addition to 1 mg tablet for total of 3.5 mg daily. acetaminophen (TYLENOL) 325 mg tablet Take 2 tablets by mouth every 4 hours as needed. magnesium oxide (MAG-OX) 400 mg (241.3 mg magnesium) tablet Take 1 tablet by mouth once daily. warfarin (COUMADIN) 1 mg tablet Take 1 tablet by mouth once daily. Take 1 tablet by mouth once daily; take in addition to 2.5 mg tablet for total of 3.5 mg daily. Cholecalciferol, Vitamin D3, (VITAMIN D-3) 2,000 unit cap Take 2,000 Units by mouth every other day. ascorbic acid (VITAMIN C) 500 mg tablet Take 500 mg by mouth once daily. Twice daily vitamin A (AQUASOL A) 10,000 unit capsule Take 10,000 Units by mouth every other day. REVIEW OF SYSTEMS: GENERAL: Negative for: Weight loss or gain, Fever or Chills, Weakness and Sleep difficulties. HEENT: Negative for: Headache, Impaired Vision, Glasses, Hearing Impairment, Ringing in Ears, Nosebleeds, Poor dental care, Bleeding Gums, Dentures NECK: Negative for: Swelling, Pain, Stiffness RESPIRATORY: Negative for: Cough, Blood in Sputum, Shortness of breath, Wheezing, Apnea GASTROINTESTINAL: Negative for: Trouble swallowing, Heartburn, Change in bowel habits, Blood in stool, Dark black stools MUSCULOSKELETAL: Negative for: Muscle or joint pain, Stiffness , Joint swelling NEUROLOGIC/PSYCHIATRIC: Negative for: Weakness, Paralysis, Numbness, Tingling, Tremor, Nervousness, Depressed mood, Memory loss SKIN: Negative for: Rashes, Itching HEMATOLOGICAL/LYMPHATIC: Negative for: Easy bruising , Easy bleeding ENDOCRINE: Negative for: Heat or cold intolerance, Excessive sweating, Frequent urination, Frequent thirst PHYSICAL EXAMINATION: BP 138/88 Pulse 89 Ht 167.6 cm (5' 6 ) Wt 82.6 kg (182 lb) BMI 29.38 kg/m General: Well appearing, in no acute distress. Skin: No clubbing, no cyanosis. Eyes: Extra ocular movements intact Oropharynx: Teeth in good repair. Neck: No jugular venous distention, no carotid bruits, carotids have a normal upstroke, no palpable thyromegaly. Lungs: Clear to auscultation bilaterally, no wheezing or rhonchi. Heart: Regular rhythm, PMI not displaced, S1, S2 normal, no S3, no S4, no heaves, no rub and no murmur. Abdomen: Soft, nontender, bowel sounds normal, no palpable organomegaly, no bruits. Extremities: No peripheral edema . Grade 2/4 distal pulses bilaterally. Neuro: Oriented to person, place and time, alert, cooperative, gait coordinated. CARDIOVASCULAR MEDICINE TESTING: Electrocardiogram: Atrial flutter with ventricular pacing I have personally reviewed the Electrocardiogram. IMPRESSION: Ms. Nguyen is a in active 81 year-old female with hypertensive heart disease and long-standing atrial fibrillation (dates back at least 20 years advanced left atrial remodeling) -- she is highly symptomatic with AF/tachycardia and a rhythm control strategy has been in place since 2012. Over the years she has demonstrated refractoriness to flecainide and sotalol. Amiodarone was utilized short-term, but according to the patient developed thyroid problems general he was poorly tolerated. She underwent a catheter-based pulmonary vein antral isolation with substrate modification in December 2016, followed by a redo ablation in December 2018. With the most recent procedure which was quite challenging technically, and atrial flutter was induced but not mapped due to degeneration into atrial fibrillation. Thereafter, She continued to have recurrent episodes of atrial tachyarrhythmia, always associated with RVR, significant symptom burden many times prompting ER visitation --- this is proven refractory to even highest dose sotalol (120 mg twice daily). She underwent AV junction ablation October 17, 2020 with good outcome And with complete elimination of the aforementioned symptoms. Sotalol has subsequently been stopped. Callie is overall doing well. At this point in time we will continue to follow her pacemaker on a quarterly basis remotely. In person visits will be on an annual basis with device clinic checks coinciding. Christina Pace MD Electrophysiology staff pager [phone] November 05, 2021 10:40 AM documented in this encounter [facility] 08-30-2021 Miscellaneous Notes Study explained/reviewed with patient. Study related follow-up requirements were discussed. Risks, benefits, alternatives, personnel, and costs of the study explained/reviewed. Patient provided informed consent for review by email. Study related questions were addressed. Provided patient with contact information to call. Inga Ham [facility] documented in this encounter [facility] 09-27-2020 Note HNO ID: [id number] Author: Carrie Garay (Photocomposing Machine Operator) Service: Pharmacy Author Type: ? Type: Plan of Care Filed: 09/27/2020 4:12 PM Note Text: PHARMACY BEDSIDE DELIVERY SERVICE Patient Name: Callie Nguyen The marked outpatient medications were filled and delivered bedside. Medication List START taking these medications acetaminophen 325 mg tablet Commonly known as: TYLENOL Take 2 tablets by mouth every 4 hours as needed. silver sulfADIAZINE 1 % cream Commonly known as: SILVADENE,THERMAZENE Apply to affected area once daily for 7 days. Start taking on: September 28, 2020 CHANGE how you take these medications sotalol 120 mg tabletX Commonly known as: BETAPACE Take 1 tablet by mouth every 12 hours. What changed: ? medication strength ? how much to take CONTINUE taking these medications magnesium oxide 400 mg (241.3 mg magnesium) tablet Commonly known as: MAG-OX Take 1 tablet by mouth once daily. metoprolol tartrate (short acting) 25 mg tablet Commonly known as: LOPRESSOR PROBIOTIC AND ACIDOPHILUS ORAL vitamin A 10,000 unit capsule Commonly known as: AQUASOL A VITAMIN C 500 mg tablet Generic drug: ascorbic acid (vitamin C) Vitamin D-3 50 mcg (2,000 unit) Cap Generic drug: Cholecalciferol (Vitamin D3) * warfarin 2 mg tablet Commonly known as: COUMADIN Take 1 tablet by mouth once daily. Take 1 tablet by mouth once daily; take in addition to 1 mg tablet for total of 3.5 mg daily. * warfarin 1 mg tablet Commonly known as: COUMADIN Take 1 tablet by mouth once daily. Take 1 tablet by mouth once daily; take in addition to 2.5 mg tablet for total of 3.5 mg daily. * This list has 2 medication(s) that are the same as other medications prescribed for you. Read the directions carefully, and ask your doctor or other care provider to review them with you. You might also be taking other medications not listed above. If you have questions about any of your other medications, talk to the person who prescribed them or your Primary Care Provider. Carrie Garay ([employer]) PAGER: [phone] September 27, 2020 4:12 PM [facility] 09-27-2020 Note HNO ID: [id number] Author: Carrie Garay ([employer]) Service: Pharmacy Author Type: ? Type: Plan of Care Filed: 09/27/2020 1:46 PM Note Text: Pharmacy Discharge Medication Service: This patient has elected to receive their discharge prescriptions through the [facility] Bedside Prescription Delivery program. The prescriptions are currently being processed. A follow-up note will be entered once the prescriptions have been filled and delivered to the patient. Please contact me with any questions or updates to the patient's discharge medications. Carrie Garay ([employer]) DCT Contact Info: [id number] [facility] 09-27-2020 Note HNO ID: [id number] Author: Carrie Garay ([employer]) Service: Pharmacy Author Type: ? Type: Plan of Care Filed: 09/27/2020 1:46 PM Note Text: SHREDDING SPECIALIST BEDSIDE DELIVERY SURVEY 1. Patient to use [facility] Bedside Delivery - YES Insurance Information as follows: 2. Insurance card on file - YES 3. Credit card for payment - N/A [facility] 09-27-2020 Note HNO ID: [id number] Author: Katja GEORGE Service: Care Management Author Type: ? Type: Care Mgt Progress Note Filed: 09/27/2020 11:15 AM Note Text: CARE MANAGEMENT PROGRESS NOTE SERVICE DATE: 09/27/2020 SERVICE TIME: 1114 LOS: 1 day IMM Follow Up Copy Given: Yes Copy given to:: Patient Method: By Phone SIGNATURE: Katja Charla ADM PATIENT NAME: Callie Nguyen DATE: September 27, 2020 TIME: 11:15 AM PAGER/CONTACT #: [phone] [facility] 09-26-2020 Note HNO ID: [id number] Author: Phyllis Curire APRN.CNP Service: Electrophysiology Author Type: Nurse Practitioner Type: Progress Notes Filed: 09/26/2020 10:51 AM Note Text: [facility] PROGRESS NOTE Callie Nguyen [id number] PRIMARY SERVICE: Cardiology: Electrophysiology SUBJECTIVE: INTERVAL HISTORY: POD #2, s/p dual chamber pacemaker (his bundle lead AND right atrial lead), no complaints PERTINENT REVIEW OF SYSTEMS: See HPI: Remaining ROS reviewed and negative OBJECTIVE: MEDICATIONS: Current Facility-Administered Medications Medication Dose Route Frequency - metoprolol tartrate (short acting) 25 mg tab(s) (LOPRESSOR) 25 mg ORAL q 12 H - sotalol 120 mg (BETAPACE) 120 mg ORAL q 12 H - magnesium oxide 400 mg tab(s) (MAG-OX) 400 mg ORAL DAILY - silver sulfADIAZINE 1 % (SILVADENE,THERMAZENE) TOPICAL DAILY - acetaminophen 650 mg tab(s) (TYLENOL) 650 mg ORAL q 4 H PRN - hydrocortisone 20 mg tab(s) (CORTEF) 20 mg ORAL q 8 H And - hydrocortisone 5 mg tab(s) (CORTEF) 5 mg ORAL q 8 H - warfarin 5 mg tab(s) (COUMADIN) 5 mg ORAL NOW PHYSICAL EXAM: 09/25/20 0758 09/25/20 1349 09/25/20 1924 09/26/20 0720 BP: 147/75 110/57 142/62 156/79 Pulse: 65 66 68 62 Resp: 18 16 16 18 Temp: 36.6 ?C (97.9 ?F) 36.6 ?C (97.9 ?F) 37 ?C (98.6 ?F) 36.4 ?C (97.5 ?F) TempSrc: Oral Oral Oral Oral SpO2: 97% 96% 94% 96% Weight: Height: General appearance: no distress Skin: warm and dry, light pink in color right AND left scapular region, surrounding incision site left chest Neck: no JVD Lungs: clear, left chest incision site steri strips present, edema present, dark purple AND light pink color surrounding skin area present, no drainage Heart: paced, regular rhythm and S1, S2 normal Peripheral Vascular/Arteries: pulses intact Abdomen: soft, non-tender and bowel sounds present Musculoskeletal: no deformities Neurologic/Psychiatric: oriented to time, place and person Extremities: normal exam of the extremities Intake/Output Summary (Last 24 hours) at 09/26/2020 1023 Last data filed at 09/25/2020 1245 Gross per 24 hour Intake 300 ml Output ? Net 300 ml TELEMETRY: DATA: Laboratory: Recent Labs 09/25/20 0621 09/24/20 1400 WBC -- 7.56 HB -- 13.6 HCT -- 42.4 PLT -- 197 NA 140 141 K 4.0 3.9 CHLOR 106 105 CO2 23 24 BUN 18 15 CREAT 0.81 0.75 GLUC 102* 92 Recent Labs 09/24/20 1358 INR 1.2 ASSESSMENT AND PLAN: POD #1 s/p dual chamber pacemaker (his bundle lead AND right atrial lead), antiarrhythmic (sotalol dose increased) #4/5: -1st sotalol 120mg; ECG: NSR, V'63, QTc: 488ms, prolong QTc -2nd sotalol 120mg; ECG: NSR, V'68, QTc: 446ms, calculated QTc: 426 ms -3rd sotalol 120mg; ECG: NSR, atrial pacing, V'62, QTc: 464ms -4th sotalol 120mg; ECG: atrial pacing, NSR, V'62, QTc: 473ms, I calculated 447 ms -rate control medication: metoprolol 25mg BID -electrolytes: maintain K 4.0, Mg >2.0 -anticoagulation: yesterday given warfarin 4mg, restart warfarin 3mg we do not want full anticoagulation since she s/p pacemaker, INR today pending, today warfarin 3mg daily (her home dose), discussed with pharmacy this morning -anticipate discharge tomorrow morning Assessment findings reviewed with Dr. Izaguirre SIGNATURE: Phyllis Currie APRN.TYPE BAR AND SEGMENT ASSEMBLER PAGER: [phone] DATE of SERVICE: 09/26/2020 TIME of SERVICE: 10:24 AM For communication after 5 pm on weekdays and on weekends, please page the following: - [facility] General Cardiology Consult pager [phone] - [facility] Electrophysiology Consult pager [phone] - [facility] Cardiology Consult Pager [phone] [facility] 09-25-2020 Note HNO ID: [id number] Author: Phyllis Currie APRN.TYPE BAR AND SEGMENT ASSEMBLER Service: Electrophysiology Author Type: Nurse Practitioner Type: Progress Notes Filed: 09/25/2020 12:05 PM Note Text: [facility] PROGRESS NOTE Callie Mota Conor [id number] PRIMARY SERVICE: Cardiology: Electrophysiology SUBJECTIVE: INTERVAL HISTORY: POD #1 s/p dual chamber pacemaker (his bundle lead AND right atrial lead), sotalol dose increased #2/3, c/o incisional site pain, given tylenol PERTINENT REVIEW OF SYSTEMS: See HPI: Remaining ROS reviewed and negative OBJECTIVE: MEDICATIONS: Current Facility-Administered Medications Medication Dose Route Frequency - metoprolol tartrate (short acting) 25 mg tab(s) (LOPRESSOR) 25 mg ORAL q 12 H - sotalol 120 mg (BETAPACE) 120 mg ORAL q 12 H - magnesium oxide 400 mg tab(s) (MAG-OX) 400 mg ORAL DAILY - ondansetron orally disintegrating 4 mg tab(s) (ZOFRAN ODT) 4 mg ORAL q 6 H PRN Or - ondansetron (PF) 4 mg injection (ZOFRAN) 4 mg INTRAVENOUS q 6 H PRN - silver sulfADIAZINE 1 % (SILVADENE,THERMAZENE) TOPICAL DAILY - hydrocortisone (CORTEF) tab(s) 25 mg 25 mg ORAL q 8 H - acetaminophen 650 mg tab(s) (TYLENOL) 650 mg ORAL q 4 H PRN PHYSICAL EXAM: 09/24/20200709/24/20 2100 09/24/20 2200 09/25/20 0758 BP: 119/61 147/75 Pulse: 75 75 65 Resp: 17 18 Temp: 36.4 ?C (97.5 ?F) 36.6 ?C (97.9 ?F) TempSrc: Oral Oral SpO2: 92% 98% 97% Weight: Height: General appearance: no distress Skin: warm, dry and light pink in color right AND left scapular region, surrounding incision site left chest Neck: no JVD Lungs: clear, left chest incision site dressing removed, steri strips present, edema present, dark purple AND light pink color surrounding skin area present, no drainage Peripheral Vascular/Arteries: pulses intact Abdomen: soft, non-tender and bowel sounds present Musculoskeletal: no deformities Neurologic/Psychiatric: oriented to time, place and person Extremities: normal exam of the extremities Intake/Output Summary (Last 24 hours) at 09/25/2020 1011 Last data filed at 09/25/2020 0900 Gross per 24 hour Intake 350 ml Output 700 ml Net -350 ml TELEMETRY: NSR DATA: Laboratory: Recent Labs 09/25/20 0621 09/24/20 1400 WBC -- 7.56 HB -- 13.6 HCT -- 42.4 PLT -- 197 NA 140 141 K 4.0 3.9 CHLOR 106 105 CO2 23 24 BUN 18 15 CREAT 0.81 0.75 GLUC 102* 92 Recent Labs 09/24/20 1358 INR 1.2 CxR: 09-25-2020; Trace left pleural effusion ASSESSMENT AND PLAN: POD #1 s/p dual chamber pacemaker (his bundle lead AND right atrial lead), antiarrhythmic (sotalol dose increased) #2/3: -device check normal function, cxr: small left pleura effusion -1st sotalol 120mg; ECG: NSR, V'63, QTc: 488ms, prolong QTc -2nd sotalol 120mg; ECG: NSR, V'68, QTc: 446ms, calculated QTc: 426 ms -rate control medication: metoprolol 25mg BID -electrolytes: maintain K 4.0, Mg >2.0 -anticoagulation: warfarin 4mg yesterday, INR 1.2, today warfarin 3mg daily (her home dose) -will review ECG after this morning dose Assessment findings reviewed with Dr. Izaguirre covering EP service SIGNATURE: Phyllis Currie APRN.TYPE BAR AND SEGMENT ASSEMBLER PAGER: [phone] DATE of SERVICE: 09/25/2020 TIME of SERVICE: 10:11 AM For communication after 5 pm on weekdays and on weekends, please page the following: - [facility] General Cardiology Consult pager [phone] - [facility] Electrophysiology Consult pager [phone] - [facility] Cardiology Consult Pager [phone] [facility] 09-24-2020 Note HNO ID: [id number] Author: Christina Pace MD Service: Electrophysiology Author Type: Physician Type: Progress Notes Filed: 09/24/2020 6:06 PM Note Text: EP staff Per patient's lead supply worker Dr. Brooke [phone] option #3 or option #1 Administer hydrocortisone 50 mg IV x1 preop (done) then every 8 hours postop (ordered) for first 24 hours; discharged with hydrocortisone 25 mg every 8 hours x2 days. Christina Pace MD Electrophysiology staff pager [phone] September 24, 2020 6:06 PM [facility] Longstanding persistent atrial fibrillation (HCC)- Primary Pacemaker Cardiac pacemaker in situ Primary hypertension Unspecified essential hypertension [facility] Outpatient Procedure (Routine) - Pending Review Specialty Diagnoses / Procedures Referred By Catia perez Referred To Contact [facility] Diagnoses Longstanding persistent atrial fibrillation (HCC) Pacemaker Procedures ECG COMPLETE ECG ROUTINE ECG W/LEAST 12 LDS W/I&[place] [address] [place] [address] [facility] [address] [address] Referral ID Status Reason Start Date Expiration Date Visits Requested Visits Authorized [id number] Pending Review Auto-Generat ed Referral 11/11/2022 11/11/2023 1 1 [facility] Summary Purpose Family History No Family History Records FoundNo Family History Records FoundNo Family History Records FoundNo Family History Records FoundNo Family History Records FoundNo Family History Records FoundNo Family History Records FoundNo Family History Records FoundNo Family History Records Found Advance Directives No Advanced Directives Records FoundDocuments on File Type Date Recorded Patient Mammal Control Agent Expl anation Advance Directives and Livin g Will 11/17/2019 12:58 PM Documents on File Type Date Recorded Patient Mammal Control Agent Expl anation Advance Directive(s) 10/12/2020 12:08 PM Advance Directive(s) 09/03/2020 10:06 AM Advance Directive(s) 12/27/2018 7:14 AM Advance Directive(s) 12/24/2018 9:14 AM Advance Directive(s) 12/15/2018 6:08 AM Advance Directive(s) 12/12/2016 9:55 AM Documents on File Type Date Recorded Patient Mammal Control Agent Expl anation Advance Directive(s) 12/12/2016 9:55 AM Documents on File Type Date Recorded Patient Mammal Control Agent Expl anation Advance Directive(s) 12/12/2016 9:55 AM Reason for Referral Status Reason Specialty Diagnoses / Procedures Referred By Contact Referred To Contact New Request Radiology Diagnoses Basedow's disease Procedures NM Thyroid Uptake And Scan Jose Alejandro Brooke MD [address] [place] [address] 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 Additional Source Comments INFORMATION SOURCE (unrecogn ized section and content) DATE CREATED AUTHOR AUTHOR'S ORGANIZ ATION 11/12/2017 [facility] DATE CREATED AUTHOR AUTHOR'S ORGANIZ ATION 11/18/2017 [facility] DATE CREATED AUTHOR AUTHOR'S ORGANIZ ATION 05/03/2018 [facility] DATE CREATED AUTHOR AUTHOR'S ORGANIZ ATION 05/03/2018 [facility] DATE CREATED AUTHOR AUTHOR'S ORGANIZ ATION 10/25/2020 [facility] DATE CREATED AUTHOR AUTHOR'S ORGANIZ ATION 06/10/2021 [facility] DATE CREATED AUTHOR AUTHOR'S ORGANIZ ATION 11/24/2022 [facility] DATE CREATED AUTHOR AUTHOR'S ORGANIZ ATION 05/25/2023 [facility] Reason for Visit (unrecogniz ed section and content) Reason Comments Research IRB [id number] Reason Comments F/U 6 months Reason Comments Established Patient Source Comments (unrecognize d section and content) In the event this informatio n is protected by the Federal Confidentiality of Alcohol and Drug Abuse Patient Records regulations: The Federal rules restrict any use of the information to criminally investigate or prosecute any alcohol or drug abuse patient.[facility] HospitalIn the event this information is protected by the Federal Confidentiality of Alcohol and Drug Abuse Patient Records regulations: The Federal rules restrict any use of the information to criminally investigate or prosecute any alcohol or drug abuse patient.[facility] HospitalIn the event this information is protected by the Federal Confidentiality of Alcohol and Drug Abuse Patient Records regulations: The Federal rules restrict any use of the information to criminally investigate or prosecute any alcohol or drug abuse patient.[facility] HospitalIn the event this information is protected by the Federal Confidentiality of Alcohol and Drug Abuse Patient Records regulations: The Federal rules restrict any use of the information to criminally investigate or prosecute any alcohol or drug abuse patient.[facility] HospitalIn the event this information is protected by the Federal Confidentiality of Alcohol and Drug Abuse Patient Records regulations: The Federal rules restrict any use of the information to criminally investigate or prosecute any alcohol or drug abuse patient.[facility] HospitalIn the event this information is protected by the Federal Confidentiality of Alcohol and Drug Abuse Patient Records regulations: The Federal rules restrict any use of the information to criminally investigate or prosecute any alcohol or drug abuse patient.[facility] HospitalIn the event this information is protected by the Federal Confidentiality of Alcohol and Drug Abuse Patient Records regulations: The Federal rules restrict any use of the information to criminally investigate or prosecute any alcohol or drug abuse patient.[facility] HospitalIn the event this information is protected by the Federal Confidentiality of Alcohol and Drug Abuse Patient Records regulations: The Federal rules restrict any use of the information to criminally investigate or prosecute any alcohol or drug abuse patient.[facility] HospitalIn the event this information is protected by the Federal Confidentiality of Alcohol and Drug Abuse Patient Records regulations: The Federal rules restrict any use of the information to criminally investigate or prosecute any alcohol or drug abuse patient.[facility] HospitalIn the event this information is protected by the Federal Confidentiality of Alcohol and Drug Abuse Patient Records regulations: The Federal rules restrict any use of the information to criminally investigate or prosecute any alcohol or drug abuse patient.[facility] Care Teams (unrecognized sec tion and content) [employer]ing Worker Relationship Specialty Start Date End Date Delfino Brandt Chi [address] [address] PCP - General 08/15/12 Christina Santizo MD [address] [place] [address] Primary Staff Physician Cardiology 08/10/18 [employer] Worker Relationship Specialty Start Date End Date Delfino Brandt Chi [address] [address] PCP - General 08/15/12 Christina Santizo MD [address] [place] [address] Primary Staff Physician Cardiology 08/10/18 [employer] Worker Relationship Specialty Start Date End Date Delfino Brandt Chi [address] [place] [address] PCP - General 08/15/12 Christina Santizo MD [address] [place] [address] Primary Staff Physician Cardiology 08/10/18 [employer] Printing Worker Relationship Specialty Start Date End Date Delfino Brandt Chi [address] [facility] [address] [place] [address] PCP - General 08/15/12 Christina Santizo MD [address] [place] [id number] Primary Staff Physician Cardiology 08/10/18 [employer] Worker Relationship Specialty Start Date End Date Delfino Brandt Chi [address] [facility] [address] [place] [address] PCP - General 08/15/12 Christina Santizo MD [address] [place] [address] Primary Staff Physician Cardiology 08/10/18 [employer] Worker Relationship Specialty Start Date End Date Delfino Brandt Chi [address] [facility] [address] [place] [address] PCP - General 08/15/12 Christina Santizo MD [address] [place] [id number] Primary Staff Physician Cardiology 08/10/18 FOR RECORDS PERTAINING TO PATIENTS WHO ARE OR HAVE BEEN ENROLLED IN A CHEMICAL DEPENDENCY/SUBSTANCEABUSE PROGRAM, SOME INFORMATION MAY BE OMITTED. This clinical summary was aggregated from multiple sources. Caution should be exercised in using it in the provision of clinical care. This summary normalizes information from multiple sources, and as a consequence, information in this document may materially change the coding, format and clinical context of patient data. In addition, data may be omitted in some cases. CLINICAL DECISIONS SHOULD BE BASED ON THE PRIMARY CLINICAL RECORDS. [facility]. provides no warranty or guarantee of the accuracy or completeness of information in this document.
[2023-05-27] MEDS: HYDROcodone Bitartrate/Apap 5/325 Tablet PO (01:53)
[2023-05-27 01:56] LABS: Absolute Lymphocyte Count 0.61 X10^3/uL (0.83-4.51); Absolute Neutrophil Count 6.5 X10^3/uL (2.0-7.7); Basophil# 0.02 X10^3/uL; Basophil% 0.3 % (0-1); Eosinophil# 0.26 X10^3/uL; Eosinophils% 3.3 % (0-5); Hematocrit 33.4 % (37-47); Hemoglobin 10.4 g/dL (12.0-15.0); Lymphocyte # 0.61 X10^3/ul (0.83-4.51); Lymphocyte % 7.8 % (19-41); Mean Corp Hgb Conc 31.1 g/dL (32-36); Mean Corpuscular Hgb 30.6 pg (27.0-32.0); Mean Corpuscular Volume 98.2 fL (81-99); Mean Platelet Vol. 9.3 fl (6.2-12.0); Monocyte% 5.1 % (0-10); NRBC Flagged by Analyzer 0 % (0-5); Neutrophil # 6.48 X10^3/uL (2.7-7.7); POSITIVE MORPHOLOGY YES; Platelet Count 241 K/mm3 (150-450); RBC Distribution Width CV 19.2 % (11.6-14.6); RBC Distribution Width SD 68.4 fl (35.1-43.9); White Blood Count 7.8 K/mm3 (4.4-11.0)
[2023-05-27 01:58] LABS: Differential Indicated SCAN CRITERIA MET
[2023-05-27 02:06] LABS: Prothrombin Time (Protime)PT. 49.5 SECONDS (11.7-14.9)
[2023-05-27 02:14] LABS: International Normalized Ratio 5.3
[2023-05-27 02:34] LABS: Differential Comment SCANNED; Ovalocyte RARE
--- NOTE | 2023-05-27 02:49 | ED.VIS.LOWEX ---
HPI History of Present Illness Chief Complaint: Wound Check Informant: patient Narrative Narrative: Patient presents for wound check. She was seen on May 22 with a large laceration to her left pool which was sutured. She presents with increased swelling and hematoma to the area that has become more painful. Patient is currently on warfarin. She states it had been held for 5 days in the past, but she is back on her regular dosing now. She has not checked her INR since restarting her medication. She denies new fall or injury. 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 lactis 10 billion cell capsule 1 ea PO DAILY 03/21/19 [History Last Taken 03/21/19] magnesium oxide 400 mg (241.3 mg magnesium) tablet 400 mg PO DAILY 03/21/19 [History Last Taken 03/21/19] vitamin A 3,000 mcg (10,000 unit) capsule 10,000 unit PO QODAY SUPPLEMENT 03/21/19 [History Last Taken 03/21/19] methenamine hippurate 1 gram tablet 1 g PO DAILY to prevent UTI 06/14/20 [History Last Taken Unknown] [facility] 1 tab PO DAILY eye health 06/21/20 [History Last Taken Unknown] levothyroxine 25 mcg tablet 12.5 mcg PO Q OTHER DAY 12/12/21 [History Last Taken Unknown] vitamin B complex 1 cap PO QODAY 06/17/22 [History Last Taken Unknown] metoprolol tartrate 25 mg tablet 25 mg PO BID HTN #180 tabs 10/07/22 [Rx Last Taken Unknown] losartan 25 mg tablet 25 mg PO BID 12/30/22 [History Last Taken Unknown] warfarin 2.5 mg tablet 2.5 mg PO .COMPLEX #90 tabs 12/30/22 [Rx Last Taken Unknown] warfarin 1 mg tablet 1 mg PO .COMPLEX #90 tabs 03/02/23 [Rx Last Taken Unknown] benzonatate 100 mg capsule 200 mg (2 x 100 mg) PO TID PRN cough #30 caps 04/23/23 [Rx Last Taken Unknown] hydrocodone-acetaminophen 5-325mg 5mg-325mg 1 tab PO Q6H PRN pain 7 days #20 tabs 05/02/23 [Rx Last Taken Unknown] prednisone 20 mg tablet 40 mg (2 x 20 mg) PO DAILY 7 days #14 tabs 05/02/23 [Rx Last Taken Unknown] hydrocodone-acetaminophen 5-325mg 5mg-325mg 1 tab PO Q6H PRN PRN Pain 3 days #10 TABLETS 05/27/23 [Rx Last Taken Unknown] Allergy/AdvReac Type Severity Reaction Status Date / Time No Known Allergies Allergy Verified 05/27/23 01:19 Family History Father CAD (coronary artery disease) Surgical History History of cardiac radiofrequency ablation (RFA) (~01/15/17) History of eye surgery (~10/2021) Social History Smoking Status: Never smoker how long ago did patient quit smoking: Smoked for 2 years as a teen alcohol intake: never substance use type: does not use caffeine: No ROS ROS ED Constitutional Constitutional ED: Denies chills or fever(s) ENT ENT ED: Denies rhinorrhea or sore throat Cardiovascular Cardiovascular: Denies chest pain Respiratory/Chest Respiratory/Chest: Denies cough or dyspnea Gastrointestinal Gastrointestinal: Denies abdominal pain, nausea or vomiting Musculoskeletal Musculoskeletal: Reports extremity pain; Denies back pain Integumentary Reports other Details: Hematoma ; Denies Abrasions or rash Neurologic Neurologic: Denies headache(s) or weakness Psychiatric Psychiatric: Denies anxiety or depression Allergic/Immunologic Allergic/Immunologic ED: Denies lip swelling or urticaria EXAM Physical Exam Const Vital Signs: 05/27/23 01:20 Temperature 97.7 F L Temperature Source Temporal Pulse Rate 82 Respiratory Rate 20 H Blood Pressure 140/74 H Blood Pressure Mean 96 Pulse Ox 98 Oxygen Delivery Method Room Air Positive well nourished and well developed General Appearance ED: well developed HEENT Reports moist mucous membranes Chest Wall inspection of chest normal and palpation of chest normal Resp normal respiratory effort and clear to auscultation bilaterally Cardio regular rate and regular rhythm GI non-tender Extremity Extremity Narrative: Large sutured laceration across the anterior left pool. Large tender hematoma noted just distal to this. Good distal pulses with no ecchymosis or edema on her foot. MDM MDM MDM Narrative Medical decision making narrative: IV line placed. CBC obtained to evaluate her hemoglobin level and INR obtained. CBC was a hemoglobin of 10.4, down from 11 on May 04. Her INR tonight is 5.3. Test results discussed with the patient. She was advised she would need to hold her warfarin. Dressing is placed across her hematoma and wound with a Te wrap for light compression. Patient was given a dose of [place] here for pain control and will be given a short prescription for home. She has an appointment with her PCP later today. I asked her to discuss with him how long to hold her Coumadin and when she should have her INR rechecked. We discussed appropriate elevation of her leg. Return instructions provided. Lab Data Labs: Laboratory Results - last 24 hr 05/27/23 01:49 WBC 7.8 RBC 3.40 L Hgb 10.4 L Hct 33.4 L MCV 98.2 MCH 30.6 MCHC 31.1 L RDW Std Deviation 68.4 H RDW Coeff of Jacque 19.2 H Plt Count 241 MPV 9.3 Immature Gran % (Auto) 0.500 Neut % (Auto) 83.0 H Lymph % (Auto) 7.8 L [place] % (Auto) 5.1 Eos % (Auto) 3.3 Baso % (Auto) 0.3 Absolute Neuts (auto) 6.5 Absolute Lymphs (auto) 0.61 L Nucleated RBC % 0 Differential Comment SCANNED Ovalocytes RARE PT 49.5 H INR 5.3 H* Discharge Plan Triage Chief Complaint: Wound Check ED Provider: Aniyah Morales Dx/Rx/DC Orders Clinical Impression: Visit for wound check, Hematoma, Supratherapeutic INR Instructions: ED Hematoma, ED Wound Check (No Infection) Prescriptions: New hydrocodone-acetaminophen 5-325 mg tablet 1 tab PO Q6H PRN PRN (Reason: Pain) 3 Days Qty: 10 0RF No Action cholecalciferol (vitamin D3) 2,000 unit capsule 2,000 unit PO QODAY levothyroxine 25 mcg tablet 12.5 mcg PO Q OTHER DAY losartan 25 mg tablet 25 mg PO BID warfarin 2.5 mg tablet 2.5 mg PO .COMPLEX Qty: 90 3RF Protocol: Dose Management Condition: Thursday Dose/Route: 3.5 mg Instruction: 1 x 1 mg tablet, 1 x 2.5 mg tablet Condition: Thursday Dose/Route: 3.5 mg Instruction: 1 x 1 mg tablet, 1 x 2.5 mg tablet Condition: Thursday Dose/Route: 3.5 mg Instruction: 1 x 1 mg tablet, 1 x 2.5 mg tablet Condition: Thursday Dose/Route: 3.5 mg Instruction: 1 x 1 mg tablet, 1 x 2.5 mg tablet Condition: Dose/Route: 3.5 mg Instruction: 1 x 1 mg tablet, 1 x 2.5 mg tablet Condition: Thursday Dose/Route: 3.5 mg Instruction: 1 x 1 mg tablet, 1 x 2.5 mg tablet Condition: Thursday Dose/Route: 3.5 mg Instruction: 1 x 1 mg tablet, 1 x 2.5 mg tablet Protocol Text: Adjustment Start Date: 04/02/23 INR Value: 2.8 INR Date: 04/02/23 Recheck Date: 05/02/23 Rx Instructions: 2.5 mg PO take with a 1 mg tablet to = 3.5 mg daily; benzonatate 100 mg capsule 200 mg PO TID PRN (Reason: cough) Qty: 30 0RF ascorbic acid (vitamin C) 1,000 MG tablet 500 mg PO BID Patient Comments: suppliment magnesium oxide 400 MG tablet 400 mg PO DAILY vitamin A 10,000 UNIT capsule 10,000 unit PO QODAY L.acidoph, paracasei,B. lactis 1 EACH capsule 1 ea PO DAILY vitamin B complex Capsule 1 cap PO QODAY [facility] 1 tab PO DAILY methenamine hippurate 1 GM tablet 1 g PO DAILY prednisone 20 mg tablet 40 mg PO DAILY 7 Days Qty: 14 0RF hydrocodone-acetaminophen 5-325 mg tablet 1 tab PO Q6H PRN (Reason: pain) 7 Days Qty: 20 0RF metoprolol tartrate 25 mg tablet 25 mg PO BID Qty: 180 3RF warfarin 1 mg tablet 1 mg PO .COMPLEX Qty: 90 3RF Protocol: Dose Management Condition: Thursday Dose/Route: 3.5 mg Instruction: 1 x 1 mg tablet, 1 x 2.5 mg tablet Condition: Thursday Dose/Route: 3.5 mg Instruction: 1 x 1 mg tablet, 1 x 2.5 mg tablet Condition: Thursday Dose/Route: 3.5 mg Instruction: 1 x 1 mg tablet, 1 x 2.5 mg tablet Condition: Thursday Dose/Route: 3.5 mg Instruction: 1 x 1 mg tablet, 1 x 2.5 mg tablet Condition: Dose/Route: 3.5 mg Instruction: 1 x 1 mg tablet, 1 x 2.5 mg tablet Condition: Thursday Dose/Route: 3.5 mg Instruction: 1 x 1 mg tablet, 1 x 2.5 mg tablet Condition: Thursday Dose/Route: 3.5 mg Instruction: 1 x 1 mg tablet, 1 x 2.5 mg tablet Protocol Text: Adjustment Start Date: 04/02/23 INR Value: 2.8 INR Date: 04/02/23 Recheck Date: 05/02/23 Rx Instructions: 1 mg PO take with a 2.5 mg tablet to = 3.5 mg daily; Primary Care Provider: Yaya Brandt Chi Referrals: Yaya Brandt Chi, MD [Primary Care Provider] - Activity Restrictions/Additional Instructions: As discussed, please hold your warfarin (Coumadin) as your INR is currently 5.3. Please discuss with Dr. Brandt at your appointment today when to restart this and when to have your INR rechecked. A short course of pain medication has been sent to the pharmacy for you. Disposition Disposition: Home, Self Care
[2023-05-27 02:58] VITALS: BP 123/80; PULSE 81; RESP 17; O2SAT 97
== END 2023-05-27 03:39 | disposition home or self-care (01) ==
PROVIDERS: Emergency Provider Emergency Medicine; PCP Family Medicine Geriatric Medicine; Visit Provider Emergency Medicine
DX: S80.12XA Contusion of left lower leg, initial encounter (principal); I48.0 Paroxysmal atrial fibrillation; Z51.89 Encounter for other specified aftercare; R79.1 Abnormal coagulation profile; Z87.891 Personal history of nicotine dependence; Z79.01 Long term (current) use of 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s; M79.89 Other specified soft tissue disorders; E78.5 Hyperlipidemia, unspecified; I10 Essential (primary) hypertension; Z95.0 Presence of cardiac pacemaker; X58.XXXA Exposure to other specified factors, initial encounter
CPT/HCPCS: 85025; 85610; 99283; A4216

== ENCOUNTER 2023-05-27 09:49 | Inpatient (IN) | payer MEDICARE, OTHER, SELFPAY ==
[2023-05-27] VITALS (9 sets, daily range): BP systolic 110–132; BP diastolic 58–104; PULSE 81–162; RESP 13–25; TEMP 36.4–37.1; O2SAT 91–100; BMI 29.7; BMI 30.3
[2023-05-27] MEDS: Ondansetron 4 MG/2 ML Vial IV (10:38)
[2023-05-27] MEDS: Phytonadione (Vit K) 5 MG in 0.9% Normal Saline (50mL Bag) 50 ML 150 MG IV (10:46)
--- NOTE | 2023-05-27 10:56 | ED.RN ---
Dr. Morales still in department on arrival of this patient, she was able to look at patients leg prior to her departure to verify for oncoming day staff that the wound is different from being d/c. Wound is now open with fatty tissue exposure with continuous venous blood discharge. Bloody discharge saturates 5x9abd pain and has been replaced multiple times. Leg elevated on blankets
--- NOTE | 2023-05-27 11:05 | ED.VIS.LOWEX ---
HPI History of Present Illness Chief Complaint: Lower Extremity Injury Narrative Narrative: Patient presents with bleeding from left lower leg. About 5 days ago she had a laceration that was sutured. She then developed a hematoma below this. Earlier this morning she was seen for this hematoma as it was causing pain. She went home. It sounds like the hematoma opened up and started draining. This is a change in her condition and is a different presentation than what she was here for last night. But her pain is now markedly better after this drained. She is on Coumadin. Her INR was 5.3 and her hemoglobin was 10.4 just this morning. She is on Coumadin for atrial fibrillation. 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 lactis 10 billion cell capsule 1 ea PO DAILY [facility] 03/21/19 [History Last Taken 03/21/19] magnesium oxide 400 mg (241.3 mg magnesium) tablet 400 mg PO DAILY SUPPLEMENT 03/21/19 [History Last Taken 03/21/19] vitamin A 3,000 mcg (10,000 unit) capsule 10,000 unit PO QODAY SUPPLEMENT 03/21/19 [History Last Taken 03/21/19] methenamine hippurate 1 gram tablet 1 g PO DAILY UTI PREVENTION 06/14/20 [History Last Taken Unknown] [facility] 1 tab PO DAILY EYE HEALTH 06/21/20 [History Last Taken Unknown] levothyroxine 25 mcg tablet 12.5 mcg PO QODAY THYROID 12/12/21 [History Last Taken Unknown] vitamin B complex 1 cap PO DAILY SUPPLEMENT 06/17/22 [History Last Taken Unknown] metoprolol tartrate 25 mg tablet 25 mg PO BID BLOOD PRESSURE #180 tabs 10/07/22 [Rx Last Taken Unknown] losartan 25 mg tablet 25 mg PO QHS BLOOD PRESSURE 12/30/22 [History Last Taken Unknown] hydrocodone-acetaminophen 5-325mg 5mg-325mg 1 tab PO Q6H PRN PAIN 7 days #20 tabs 05/02/23 [Rx Last Taken Unknown] prednisone 20 mg tablet 40 mg (2 x 20 mg) PO DAILY 7 days #14 tabs 05/02/23 [Rx Last Taken Unknown] warfarin 1 mg tablet 1 mg PO DAILY BLOOD THINNER 05/27/23 [History Last Taken Unknown] warfarin 2.5 mg tablet 2.5 mg PO DAILY BLOOD THINNER 05/27/23 [History Last Taken Unknown] Allergy/AdvReac Type Severity Reaction Status Date / Time No Known Allergies Allergy Verified 05/27/23 09:50 Family History Father CAD (coronary artery disease) Surgical History History of cardiac radiofrequency ablation (RFA) (~01/15/17) History of eye surgery (~10/2021) Social History Smoking Status: Never smoker how long ago did patient quit smoking: Smoked for 2 years as a teen alcohol intake: never substance use type: does not use caffeine: No ROS ROS ED Constitutional Constitutional ED: Denies chills or fever(s) Cardiovascular Cardiovascular: Denies chest pain or palpitations Respiratory/Chest Respiratory/Chest: Denies cough or dyspnea Gastrointestinal Gastrointestinal: Denies nausea or vomiting Genitourinary Genitourinary ED: Denies hematuria Musculoskeletal Musculoskeletal: Reports other Details: See history of present illness regarding left lower extremity. Integumentary Reports other Details: Large hematoma left lower extremity Neurologic Neurologic: Denies paresthesias Hematologic/Lymphatic Hematologic/Lymphatic: Reports easy bleeding and easy bruising Allergic/Immunologic Allergic/Immunologic ED: Denies urticaria EXAM Physical Exam Narrative Exam Narrative: General: Patient is awake alert no acute distress. She states she has not ate really since last night. She did have 1 peach slice this morning. HEENT shows no trauma. She has a Mallampati 2. Neck is supple. Lungs are clear bilaterally. Saturations are normal at 98% on room air showing no hypoxia. Heart sounds regular. It does not sound like it is currently in atrial fibrillation. Abdomen is soft and nontender Extremities show a healing laceration in the left anterior lateral distal pool. There is a large hematoma below this about the size of a fist. It is stretching her superficial skin up. On the backside of this it is split open. Is not actively bleeding but there is a large clot there. I tried to express this clot but it caused too much discomfort for the patient. Const Vital Signs: 05/27/23 09:50 05/27/23 09:59 05/27/23 11:50 Temperature 97.5 F L Temperature Source Oral Pulse Rate 87 96 Pulse Rate [1 (Initial Baseline)] Pulse Rate [2] Pulse Rate [3] Respiratory Rate 16 22 H Respiratory Rate [1 (Initial Baseline)] Respiratory Rate [2] Respiratory Rate [3] Blood Pressure 112/58 L 117/61 Blood Pressure [1 (Initial Baseline)] Blood Pressure [2] Blood Pressure [3] Blood Pressure Mean 76 Pulse Ox 98 91 97 Oxygen Delivery Method Room Air Room Air Room Air Oxygen Delivery Method [1 (Initial Baseline)] Oxygen Delivery Method [2] Oxygen Delivery Method [3] Oxygen Flow Rate (L/min) Oxygen Flow Rate (L/min) [1 (Initial Baseline)] Oxygen Flow Rate (L/min) [2] Oxygen Flow Rate (L/min) [3] 05/27/23 12:11 05/27/23 12:06 05/27/23 12:11 Temperature Temperature Source Pulse Rate Pulse Rate [1 (Initial Baseline)] 162 H Pulse Rate [2] 144 H Pulse Rate [3] 105 H Respiratory Rate Respiratory Rate [1 (Initial Baseline)] 25 H Respiratory Rate [2] 13 Respiratory Rate [3] 22 H Blood Pressure Blood Pressure [1 (Initial Baseline)] 117/61 Blood Pressure [2] 120/62 Blood Pressure [3] 110/67 Blood Pressure Mean Pulse Ox Oxygen Delivery Method Nasal Cannula Room Air Oxygen Delivery Method [1 (Initial Baseline)] Nasal Cannula Oxygen Delivery Method [2] Nasal Cannula Oxygen Delivery Method [3] Nasal Cannula Oxygen Flow Rate (L/min) 2 0 Oxygen Flow Rate (L/min) [1 (Initial Baseline)] 2 Oxygen Flow Rate (L/min) [2] 2 Oxygen Flow Rate (L/min) [3] 2 05/27/23 12:16 05/27/23 13:32 Temperature Temperature Source Pulse Rate 91 Pulse Rate [1 (Initial Baseline)] Pulse Rate [2] Pulse Rate [3] Respiratory Rate 18 Respiratory Rate [1 (Initial Baseline)] Respiratory Rate [2] Respiratory Rate [3] Blood Pressure 120/104 H Blood Pressure [1 (Initial Baseline)] Blood Pressure [2] Blood Pressure [3] Blood Pressure Mean 109 Pulse Ox 99 Oxygen Delivery Method Room Air Oxygen Delivery Method [1 (Initial Baseline)] Oxygen Delivery Method [2] Oxygen Delivery Method [3] Oxygen Flow Rate (L/min) Oxygen Flow Rate (L/min) [1 (Initial Baseline)] Oxygen Flow Rate (L/min) [2] Oxygen Flow Rate (L/min) [3] MDM MDM MDM Narrative Medical decision making narrative: I discussed options with the patient. I think this is going to keep causing problems for her unless we can try to evacuate this clot. I am Still concerned about healing of the skin over this as it has been stretched significantly. But if we can evacuate the clot and provide some compression I think she will heal faster. She cannot tolerate me doing this at the bedside. We discussed sedation which she agrees to go with. We discussed there are risks and benefits of this. Procedure: Procedural sedation and evacuation of hematoma I discussed risk benefits options of the patient. Timeout was performed. Total 9 minutes sedation A total of 40 mg of propofol was used IV. She was kept on oxygen the monitor. She never desatted or had any difficulties. We were able to manually remove a large amount of clots from under the skin on both sides of the splint. We gently scraped with sterile gloves this area. Both along the leg along the skin. We then irrigated it with saline try to get more clots out and went back and forth like that several times. I then irrigated with more sterile saline. I then used 5000 units of's spray thrombin on the surfaces. There is surprisingly was not much bleeding. We then placed an ABD on this placed another 1 over it and then used an Te wrap. She tolerated this actually quite well. We called plastics/wound care, Dr. Munroe called back quickly. She then came down and evaluated the patient personally. She unwrapped the area. There was some bleeding at that time but she used some Gelfoam on the areas. She wrapped it up. But she stated that this is going to need more care than the patient can do at home. We did repeat the CBC and hemoglobin has dropped. INR has come down from this morning. I also discussed case with the hospitalist and the patient will be admitted. Patient CBC shows minimal elevation white count. Hemoglobin is dropped down to 8.6. Platelets are normal. Patient's INR is elevated at 3.2 but still an improvement from this morning. She had received the vitamin K. Patient's electrolytes show no marked abnormalities. There is some mildly low calcium but I do not know what her albumin is. Lab Data Labs: Laboratory Results - last 24 hr 05/27/23 13:02 WBC 12.0 H RBC 2.83 L Hgb 8.6 L Hct 28.0 L MCV 98.9 MCH 30.4 MCHC 30.7 L RDW Std Deviation 67.7 H RDW Coeff of Jacque 18.9 H Plt Count 255 MPV 10.0 Immature Gran % (Auto) 0.500 Neut % (Auto) 89.1 H Lymph % (Auto) 5.3 L [place] % (Auto) 4.5 Eos % (Auto) 0.3 Baso % (Auto) 0.3 Absolute Neuts (auto) 10.7 H Absolute Lymphs (auto) 0.63 L Nucleated RBC % 0 Differential Comment SCANNED Anisocytosis 2+ Microcytosis 1+ Macrocytosis 1+ PT 33.1 H INR 3.2 Sodium 144 Potassium 4.1 Chloride 111 H Carbon Dioxide 26.0 Anion Gap 7 BUN 19 H Creatinine 0.82 Estim Creat Clear Calc 50.37 Est GFR (MDRD) Af Amer 86 Est GFR (MDRD) Non-Af 71 BUN/Creatinine Ratio 23.1 H Glucose 122 H Calcium 7.5 L Discharge Plan Dx/Rx/DC Orders Clinical Impression: S/P evacuation of hematoma, Anemia, Hematoma of left lower extremity, Warfarin-induced coagulopathy Disposition Disposition: [facility]
[2023-05-27] MEDS: Thrombin 5,000 IU Kit (PSA) 5,000 IU Vial 5000 IU TOPICAL (11:47)
[2023-05-27] MEDS: Propofol 200 MG/20 ML Vial IV BOLUS (11:47)
[2023-05-27] MEDS: Gelfoam 12-7 MM Sponge (1) 1 EACH TOPICAL (11:48)
[2023-05-27 13:16] LABS: Absolute Lymphocyte Count 0.63 X10^3/uL (0.83-4.51); Absolute Neutrophil Count 10.7 X10^3/uL (2.0-7.7); Basophil# 0.03 X10^3/uL; Basophil% 0.3 % (0-1); Eosinophil# 0.04 X10^3/uL; Eosinophils% 0.3 % (0-5); Hemoglobin 8.6 g/dL (12.0-15.0); Lymphocyte # 0.63 X10^3/ul (0.83-4.51); Lymphocyte % 5.3 % (19-41); Mean Corp Hgb Conc 30.7 g/dL (32-36); Mean Corpuscular Hgb 30.4 pg (27.0-32.0); Mean Corpuscular Volume 98.9 fL (81-99); Monocyte# 0.54 X10^3/uL; Monocyte% 4.5 % (0-10); NRBC Flagged by Analyzer 0 % (0-5); Neutrophil # 10.66 X10^3/uL (2.7-7.7); Neutrophil % 89.1 % (47-70); POSITIVE MORPHOLOGY YES; Platelet Count 255 K/mm3 (150-450); RBC Distribution Width CV 18.9 % (11.6-14.6); RBC Distribution Width SD 67.7 fl (35.1-43.9); Red Blood Count 2.83 M/mm3 (4.2-5.4)
--- NOTE | 2023-05-27 13:22 | NURSING ---
DR DONALDO SENIOR
[2023-05-27 13:24] LABS: Differential Indicated SCAN CRITERIA MET
[2023-05-27 13:28] LABS: Anion Gap 7 (5-15); BUN 19 mg/dL (7-18); BUN/Creat Ratio 23.1 RATIO (10-20); Calcium,Total 7.5 mg/dL (8.5-10.1); Chloride 111 mmol/L (98-107); Creatinine, Serum 0.82 mg/dL (0.55-1.02); EST Glomerular Filtration Rate 71 mL/min (>60); Est Glom Filt Rate - Afr Amer 86 mL/min (>60); Estimated Creatinine Clearance 50.37 ml/min; Glucose 122 mg/dL (74-106); Potassium 4.1 mmol/L (3.5-5.1); Sodium Level 144 mmol/L (136-145)
[2023-05-27 13:44] LABS: Anisocytosis 2+; Differential Comment SCANNED; Macrocytosis 1+; Microcytosis 1+
[2023-05-27 13:45] LABS: International Normalized Ratio 3.2; Prothrombin Time (Protime)PT. 33.1 SECONDS (11.7-14.9)
--- NOTE | 2023-05-27 13:47 | NURSING ---
MED SURG OBS [place] LEFT LEG HEMATOMA, ANEMIA, COAGULOPATHY
--- NOTE | 2023-05-27 13:54 | PCM.HP.STD ---
HPI - General General Date of Admission: 05/27/23 Date of Service: 05/27/23 Chief Complaint: Leg pain and bleeding HPI Narrative PORTILLO NGUYEN, is a 83 F with a history of A-fib status post ablation and pacemaker, hypertension, hypothyroidism, chronic back pain who presented to [facility] 05/27/2023 with leg bleeding. Patient was sedated for clot evacuation and suturing so is a poor historian on interview and history obtained primarily from chart. Patient had laceration to her left lower leg about 5 days ago that was sutured. Per patient she had just bumped her leg against her car and that caused the initial trauma. She then presented late last night/early this morning due to developing hematoma and pain in that leg. She send placed across hematoma and Te wrap for light compression and Superior for pain control with plan to see her PCP later in the day and was advised to hold Coumadin however after patient went home the area spontaneously split and was draining. In ED she was given sedation and had clot evacuation and irrigation with thrombin. Plastic surgery consulted in ED and evaluated as well and put Surgifoam and and recommended admission. Patient also given vitamin K. Hospitalist contacted for admission. Patient evaluated at bedside and reports her pain is significantly improving, reports she has some chronic problems with back pain and had been holding her for an epidural injection which was not helpful and so she was started on prednisone took her first dose earlier today which made her little bit dizzy but had no other new physical complaints. 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 lactis 10 billion cell capsule 1 ea PO DAILY GUT HEALTH 03/21/19 [History Last Taken 03/21/19] magnesium oxide 400 mg (241.3 mg magnesium) tablet 400 mg PO DAILY SUPPLEMENT 03/21/19 [History Last Taken 03/21/19] vitamin A 3,000 mcg (10,000 unit) capsule 10,000 unit PO QODAY SUPPLEMENT 03/21/19 [History Last Taken 03/21/19] methenamine hippurate 1 gram tablet 1 g PO DAILY UTI PREVENTION 06/14/20 [History Last Taken Unknown] HYDRO EYE 1 tab PO DAILY EYE HEALTH 06/21/20 [History Last Taken Unknown] levothyroxine 25 mcg tablet 12.5 mcg PO QODAY THYROID 12/12/21 [History Last Taken Unknown] vitamin B complex 1 cap PO DAILY SUPPLEMENT 06/17/22 [History Last Taken Unknown] metoprolol tartrate 25 mg tablet 25 mg PO BID BLOOD PRESSURE #180 tabs 10/07/22 [Rx Last Taken Unknown] losartan 25 mg tablet 25 mg PO QHS BLOOD PRESSURE 12/30/22 [History Last Taken Unknown] hydrocodone-acetaminophen 5-325mg 5mg-325mg 1 tab PO Q6H PRN PAIN 7 days #20 tabs 05/02/23 [Rx Last Taken Unknown] prednisone 20 mg tablet 40 mg (2 x 20 mg) PO DAILY 7 days #14 tabs 05/02/23 [Rx Last Taken Unknown] warfarin 1 mg tablet 1 mg PO DAILY BLOOD THINNER 05/27/23 [History Last Taken Unknown] warfarin 2.5 mg tablet 2.5 mg PO DAILY BLOOD THINNER 05/27/23 [History Last Taken Unknown] Allergy/AdvReac Type Severity Reaction Status Date / Time No Known Allergies Allergy Verified 05/27/23 09:50 Family History Father CAD (coronary artery disease) Surgical History History of cardiac radiofrequency ablation (RFA) (~01/15/17) History of eye surgery (~10/2021) Social History Smoking Status: Never smoker how long ago did patient quit smoking: Smoked for 2 years as a teen alcohol intake: never substance use type: does not use caffeine: No ROS ROS Narrative General: Denies fever/chills HENT: Denies headache, denies stuffy nose, denies sore throat EYES: Denies changes in vision Resp: Denies cough, denies shortness of breath Cardiac: Denies chest pain GI: Denies abdominal pain, denies changes in bowel, denies nausea/vomiting : Denies changes in urination Extremity: Reports some lower extremity swelling and pain in left lower extremity improved MSK: Denies weakness Neuro: Denies any numbness/tingling Heme: Only bleeding reported on left leg, does have some easy bruising Skin: Denies rashes Psychiatric: No complaints voiced Vital Signs Vital Signs Vital Signs: 05/27/23 09:50 05/27/23 09:59 05/27/23 11:50 Temperature 97.5 F L Temperature Source Oral Pulse Rate 87 96 Pulse Rate [1 (Initial Baseline)] Pulse Rate [2] Pulse Rate [3] Respiratory Rate 16 22 H Respiratory Rate [1 (Initial Baseline)] Respiratory Rate [2] Respiratory Rate [3] Blood Pressure 112/58 L 117/61 Blood Pressure [1 (Initial Baseline)] Blood Pressure [2] Blood Pressure [3] Blood Pressure Mean 76 Pulse Ox 98 91 97 Oxygen Delivery Method Room Air Room Air Room Air Oxygen Delivery Method [1 (Initial Baseline)] Oxygen Delivery Method [2] Oxygen Delivery Method [3] Oxygen Flow Rate (L/min) Oxygen Flow Rate (L/min) [1 (Initial Baseline)] Oxygen Flow Rate (L/min) [2] Oxygen Flow Rate (L/min) [3] 05/27/23 12:11 05/27/23 12:06 05/27/23 12:11 Temperature Temperature Source Pulse Rate Pulse Rate [1 (Initial Baseline)] 162 H Pulse Rate [2] 144 H Pulse Rate [3] 105 H Respiratory Rate Respiratory Rate [1 (Initial Baseline)] 25 H Respiratory Rate [2] 13 Respiratory Rate [3] 22 H Blood Pressure Blood Pressure [1 (Initial Baseline)] 117/61 Blood Pressure [2] 120/62 Blood Pressure [3] 110/67 Blood Pressure Mean Pulse Ox Oxygen Delivery Method Nasal Cannula Room Air Oxygen Delivery Method [1 (Initial Baseline)] Nasal Cannula Oxygen Delivery Method [2] Nasal Cannula Oxygen Delivery Method [3] Nasal Cannula Oxygen Flow Rate (L/min) 2 0 Oxygen Flow Rate (L/min) [1 (Initial Baseline)] 2 Oxygen Flow Rate (L/min) [2] 2 Oxygen Flow Rate (L/min) [3] 2 05/27/23 12:16 05/27/23 13:32 Temperature Temperature Source Pulse Rate 91 Pulse Rate [1 (Initial Baseline)] Pulse Rate [2] Pulse Rate [3] Respiratory Rate 18 Respiratory Rate [1 (Initial Baseline)] Respiratory Rate [2] Respiratory Rate [3] Blood Pressure 120/104 H Blood Pressure [1 (Initial Baseline)] Blood Pressure [2] Blood Pressure [3] Blood Pressure Mean 109 Pulse Ox 99 Oxygen Delivery Method Room Air Oxygen Delivery Method [1 (Initial Baseline)] Oxygen Delivery Method [2] Oxygen Delivery Method [3] Oxygen Flow Rate (L/min) Oxygen Flow Rate (L/min) [1 (Initial Baseline)] Oxygen Flow Rate (L/min) [2] Oxygen Flow Rate (L/min) [3] Weight Weight: 83.6 kg Body Mass Index (BMI) 29.7 Physical Exam Narrative General: Alert, oriented, no apparent distress HEENT: Atraumatic, normocephalic Eyes: Anicteric, normal conjunctiva, extraocular movements grossly intact Neck: Supple Respiratory: Clear to auscultation bilaterally, normal respiratory effort Cardiovascular: Regular rate and rhythm GI: Soft, nontender, nondistended Extremities: 1+ edema in right lower extremity, left lower extremity wrapped and elevated, able to palpate DP pulses on both sides Musculoskeletal: Moving all extremities Neuro: No overt focal neurological deficits Skin: Left leg wrapped Psych: Cooperative Results Lab / Micro Data 05/27/23 13:02 05/27/23 13:02 Labs: Laboratory Results - last 24 hr 05/27/23 13:02: WBC 12.0 H, RBC 2.83 L, Hgb 8.6 L, Hct 28.0 L, MCV 98.9, MCH 30.4, MCHC 30.7 L, RDW Std Deviation 67.7 H, RDW Coeff of Jacque 18.9 H, Plt Count 255, MPV 10.0, Immature Gran % (Auto) 0.500, Neut % (Auto) 89.1 H, Lymph % (Auto) 5.3 L, Laurel % (Auto) 4.5, Eos % (Auto) 0.3, Baso % (Auto) 0.3, Absolute Neuts (auto) 10.7 H, Absolute Lymphs (auto) 0.63 L, Nucleated RBC % 0, Differential Comment SCANNED, Anisocytosis 2+, Microcytosis 1+, Macrocytosis 1+, PT 33.1 H, INR 3.2, Sodium 144, Potassium 4.1, Chloride 111 H, Carbon Dioxide 26.0, Anion Gap 7, BUN 19 H, Creatinine 0.82, Estim Creat Clear Calc 50.37, Est GFR (MDRD) Af Amer 86, Est GFR (MDRD) Non-Af 71, BUN/Creatinine Ratio 23.1 H, Glucose 122 H, Calcium 7.5 L Assessment & Plan Assessment/Plan (1) Hematoma of left lower extremity: (2) 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: (3) Supratherapeutic INR: PLAN: Plan # Left leg hematoma after leg laceration with resultant anemia/acute blood loss anemia secondary to left leg laceration -Patient hurt left lower extremity 5 days ago and had laceration repair in ED, this a.m. area split open and required sedation with irrigation of clot and thrombin and repeated closure -Did have supratherapeutic INR and was given vitamin K -Trend INR -Wound care and plastics consult -Patient presently reports feeling much better than she did last night -Pain control, supportive care -Unclear if patient will need OR's will make n.p.o. at midnight in the event she does -Hemoglobin last month was 11, today down to 8.6 # History of atrial fibrillation -Status post ablation and pacemaker -Presently normal sinus rhythm -Continue beta-nely, hold Coumadin -Patient denies any mechanical valves or other indications for Coumadin over DOAC but reports she is on Coumadin per her preference -Daily INR # Hypertension -BP was somewhat borderline in ED after sedation so we will hold TE -Continue to monitor # Chronic back pain -Will need to continue to follow with pain management on outpatient basis -Holding prednisone, patient had only received 1 dose this a.m. and reports she did not feel well after she took it #DVT ppx: Still is technically therapeutic on Coumadin, SCD for right lower extremity in the meantime Adrienne Stewart MD Time spent in the patient's overall evaluation,decision-making process, review of diagnostic data, adjustment of management, discussion with other providers, nursing nursing and ancillary staff involved in patient's care documentation, 55 minutes Charges/Coding Visit Charges Inpatient E&M: 21470 Init Hosp L2
--- NOTE | 2023-05-27 15:47 | PCM.CONS.B ---
Consult Date of Consult: 05/27/23 Reason for Consult Wound of lower leg This 83-year-old female patient on anticoagulation was initially seen in the emergency room for laceration of her anterior left lower leg on 05/23. This had been sutured and she was discharged home. Because of increased pain, the patient was seen in the emergency room earlier this morning with a hematoma noted on her leg. This was rewrapped with an Te wrap and she was discharged home. She returned to the ER by squad later in the day with bleeding noted and a history that the hematoma had opened up. The patient is sitting up in bed and alert and talking. Her leg is mildly elevated. Sensation in her foot is intact. The dressing is unwrapped and she is noted to have moderate oozing on the posterior calf with a open laceration extending from distal to proximal. Because of her super anticoagulation, Gelfoam hemostatic product is applied to the wound along with ABDs, Kerlix, te wraps. Her leg is positioned above the level of her heart and she is encouraged to maintain this position to help decrease bleeding, pain, and swelling. At this point, she needs to have her anticoagulation controlled. Surgical intervention may or may not be required. Wound care for open wound of posterior calf. Assessment & Plan Assessment/Plan (1) Warfarin-induced coagulopathy: (2) Hematoma of left lower extremity:
[2023-05-27] MEDS: Ensure Plus High Protein 120 ML LIQUID PO (17:11)
--- NOTE | 2023-05-27 17:43 | PCM.PN.BLA ---
Progress Note Pt examined. She is comfortable and states much less pain. Dressing intact and dry. No drainage noted on dressings. Left foot warm and able to wiggle toes. DP palpated. Foot mildly edematous. Recommend -bedrest tonight to reduce leg from being in dependent position. -High leg elevation -continued surveillance of blood count -reassessment of wound tomorrow
[2023-05-27] MEDS: Metoprolol Tartrate 25 MG Tablet PO (22:00)
[2023-05-28] MEDS: Levothyroxine 25 MCG TABLET 12.5 MCG PO (04:19)
[2023-05-28 04:23] VITALS: BP 133/75; PULSE 80; RESP 16; TEMP 36.6; O2SAT 99
--- NOTE | 2023-05-28 06:00 | EKG12_ITS ---
Test Reason : PREOP Blood Pressure : / mmHG Vent. Rate : 080 BPM Atrial Rate : 264 BPM P-R Int : 000 ms QRS Dur : 156 ms QT Int : 454 ms P-R-T Axes : 261 001 032 degrees QTc Int : 523 ms Ventricular-paced rhythm Abnormal ECG When compared with ECG of 08-OCT-2020 11:00, Electronic ventricular pacemaker has replaced Electronic atrial pacemaker Confirmed by COLBY CAMACHO, MILES ([id number]), image editor NIURKA FONTANEZ ([id number]) on 06/02/2023 10:27:46 AM Referred By: Confirmed By:MILES BOWMAN MD
[2023-05-28 06:27] LABS: Absolute Lymphocyte Count 0.93 X10^3/uL (0.83-4.51); Absolute Neutrophil Count 7.1 X10^3/uL (2.0-7.7); Basophil# 0.02 X10^3/uL; Basophil% 0.2 % (0-1); Eosinophil# 0.23 X10^3/uL; Eosinophils% 2.6 % (0-5); Hematocrit 22.9 % (37-47); Hemoglobin 7.1 g/dL (12.0-15.0); Lymphocyte # 0.93 X10^3/ul (0.83-4.51); Lymphocyte % 10.4 % (19-41); Mean Corpuscular Hgb 30.7 pg (27.0-32.0); Mean Corpuscular Volume 99.1 fL (81-99); Mean Platelet Vol. 9.8 fl (6.2-12.0); Monocyte# 0.61 X10^3/uL; Monocyte% 6.8 % (0-10); NRBC Flagged by Analyzer 0 % (0-5); Neutrophil % 79.6 % (47-70); POSITIVE MORPHOLOGY YES; Platelet Count 229 K/mm3 (150-450); RBC Distribution Width CV 19.1 % (11.6-14.6); Red Blood Count 2.31 M/mm3 (4.2-5.4); White Blood Count 8.9 K/mm3 (4.4-11.0)
[2023-05-28 06:31] LABS: Differential Indicated SCAN CRITERIA MET
[2023-05-28] MEDS: Menthol/Lanolin/Calamine/Znox 113 GM Tube 1 APPLIC TOPICAL ×2 (06:33→21:12)
[2023-05-28] MEDS: Miconazole Nitrate 43 GM Bottle 1 APPLIC TOPICAL ×2 (06:33→21:12)
[2023-05-28 06:36] LABS: International Normalized Ratio 1.4; Prothrombin Time (Protime)PT. 17.2 SECONDS (11.7-14.9)
[2023-05-28 06:37] LABS: Partial Thromboplast Time 38.3 Seconds (24.1-36.2)
[2023-05-28 06:47] LABS: Anisocytosis 1+
[2023-05-28 06:48] LABS: Burr Cells 1+
[2023-05-28 07:17] LABS: ALB/GLOB Ratio 0.8 RATIO (0.9-2.4); AST(SGOT) 15 U/L (15-37); Alanine Aminotransfer ALT/SGPT 18 U/L (13-56); Albumin, Serum 2.2 g/dL (3.2-5.0); Alkaline Phosphatase 85 U/L (45-117); Anion Gap 3 (5-15); BUN 19 mg/dL (7-18); BUN/Creat Ratio 24.7 RATIO (10-20); Calcium,Total 7.7 mg/dL (8.5-10.1); Chloride 113 mmol/L (98-107); Creatinine, Serum 0.77 mg/dL (0.55-1.02); EST Glomerular Filtration Rate 77 mL/min (>60); Est Glom Filt Rate - Afr Amer 93 mL/min (>60); Globulin 2.6 g/dL (2.2-4.2); Glucose 100 mg/dL (74-106); Potassium 4.3 mmol/L (3.5-5.1); Protein, Total 4.8 g/dL (6.4-8.2); Sodium Level 144 mmol/L (136-145); Thyroid Stim Hormone (TSH) 2.34 uIU/mL (0.358-3.74)
--- NOTE | 2023-05-28 08:33 | PCM.PN.HOSP ---
Subjective Subjective Still with pain LLE. Objective Data Objective Data Vital Signs: Vital Signs Temp Pulse Resp BP Pulse Ox O2 Del Method O2 Flow Rate 36.6 C 80 16 133/75 H 99 Room Air 2 05/28/23 04:23 05/28/23 04:23 05/28/23 04:23 05/28/23 04:23 05/28/23 04:23 05/28/23 04:05/27/23 12:11 Oxygen Flow Rate (L/min) [3] 2 Oxygen Flow Rate (L/min) [2] 2 Oxygen Flow Rate (L/min) [1 ( 2 Initial Baseline)] Oxygen Flow Rate (L/min) 0 Oxygen Delivery Method [3] Nasal Cannula Oxygen Delivery Method [2] Nasal Cannula Oxygen Delivery Method [1 ( Nasal Cannula Initial Baseline)] Oxygen Delivery Method Room Air Weight: 85.3 kg Body Mass Index (BMI) 30.3 Intake & Output: Intake and Output for Last 24 Hours 05/26/23 05/27/23 05/28/23 23:59 23:59 23:59 Intake Total 500.5 / 500.5 Balance 500.5 / 500.5 Lab / Micro Data 05/28/23 12:23 05/28/23 05:50 Labs: Laboratory Results - last 24 hr 05/27/23 13:02: WBC 12.0 H, RBC 2.83 L, Hgb 8.6 L, Hct 28.0 L, MCV 98.9, MCH 30.4, MCHC 30.7 L, RDW Std Deviation 67.7 H, RDW Coeff of Jacque 18.9 H, Plt Count 255, MPV 10.0, Immature Gran % (Auto) 0.500, Neut % (Auto) 89.1 H, Lymph % (Auto) 5.3 L, Haskell % (Auto) 4.5, Eos % (Auto) 0.3, Baso % (Auto) 0.3, Absolute Neuts (auto) 10.7 H, Absolute Lymphs (auto) 0.63 L, Nucleated RBC % 0, Differential Comment SCANNED, Anisocytosis 2+, Microcytosis 1+, Macrocytosis 1+, PT 33.1 H, INR 3.2, Sodium 144, Potassium 4.1, Chloride 111 H, Carbon Dioxide 26.0, Anion Gap 7, BUN 19 H, Creatinine 0.82, Estim Creat Clear Calc 50.37, Est GFR (MDRD) Af Amer 86, Est GFR (MDRD) Non-Af 71, BUN/Creatinine Ratio 23.1 H, Glucose 122 H, Calcium 7.5 L 05/28/23 05:50: WBC 8.9, RBC 2.31 L, Hgb 7.1 L, Hct 22.9 L, MCV 99.1 H, MCH 30.7, MCHC 31.0 L, RDW Std Deviation 68.0 H, RDW Coeff of Jacque 19.1 H, Plt Count 229, MPV 9.8, Immature Gran % (Auto) 0.400, Neut % (Auto) 79.6 H, Lymph % (Auto) 10.4 L, Haskell % (Auto) 6.8, Eos % (Auto) 2.6, Baso % (Auto) 0.2, Absolute Neuts (auto) 7.1, Absolute Lymphs (auto) 0.93, Nucleated RBC % 0, Anisocytosis 1+, Tatyana Cells 1+, PT 17.2 H, INR 1.4, APTT 38.3 H, Sodium 144, Potassium 4.3, Chloride 113 H, Carbon Dioxide 28.0, Anion Gap 3 L, BUN 19 H, Creatinine 0.77, Estim Creat Clear Calc 41.30, Est GFR (MDRD) Af Amer 93, Est GFR (MDRD) Non-Af 77, BUN/Creatinine Ratio 24.7 H, Glucose 100, Calcium 7.7 L, Total Bilirubin 0.70, AST 15, ALT 18, Alkaline Phosphatase 85, Total Protein 4.8 L, Albumin 2.2 L, Globulin 2.6, Albumin/Globulin Ratio 0.8 L, TSH 2.34 Physical Exam Const alert and no apparent distress HEENT head/scalp atraumatic Extremity Extremity Narrative: U-shaped incisoin on anterior left pool well approximated. hematoma distally and laterally. large skin tear posteriorly. Assessment & Plan Assessment/Plan (1) Hematoma of left lower extremity: (2) 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: (3) Supratherapeutic INR: PLAN: Plan Left leg hematoma after leg laceration with resultant anemia/acute blood loss anemia secondary to left leg laceration Patient hurt left lower extremity 5 days ago and had laceration repair in ED, this a.m. area split open and required sedation with irrigation of clot and thrombin and repeated closure Wound care PRS following. no imminent plans for surgery at this point. Patient presently reports feeling much better than she did last night Unclear if patient will need OR's will make n.p.o. at midnight in the event she does Hemoglobin last month was 11, today down to 8.6 Acute blood loss anemia 2/2 laceration and coagulopathy Hg dropped from 11 to 7.1. Monitor Transfuse if Hg less than 7. Chronic conditions: History of atrial fibrillation-Status post ablation and pacemaker-Presently normal sinus rhythm-Continue beta-nely, hold Coumadin-Patient denies any mechanical valves or other indications for Coumadin over DOAC but reports she is on Coumadin per her preference did discuss with the patient about if she is ever used other 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s such as apixaban or rivaroxaban. Her immediate response is that she has read bad things about those medications. She cannot site of sources. I did talk with her about the ease of the other medications and also assuage some of her fears at these medications are in your system forever . She seems not the least bit interested in changing to DOAC's at this time. Nonetheless, anticoagulation to be held in regards to this hematoma and acute blood loss anemia. hypertension-BP was somewhat borderline in ED after sedation so we will hold OLYA-Continue to monitor Chronic back pain-Will need to continue to follow with pain management on outpatient basis-Holding prednisone, patient had only received 1 dose this a.m. and reports she did not feel well after she took it DVT ppx: SCDs to right lower extremity Charges/Coding Visit Charges Inpatient E&M: 30612 Subs Hosp L2
--- NOTE | 2023-05-28 08:56 | PCA ---
Patients cardiovascular/pacer physician is Doctor Christina Gottlieb in [place]
[2023-05-28 09:11] VITALS: BP 138/71; PULSE 80; RESP 18; TEMP 37; O2SAT 98
[2023-05-28 09:18] VITALS: PULSE 80
[2023-05-28] MEDS: Methenamine Hippurate 1 GM Tablet PO (09:18)
[2023-05-28] MEDS: Metoprolol Tartrate 25 MG Tablet PO ×2 (09:18→21:12)
[2023-05-28] MEDS: Ensure Plus High Protein 120 ML LIQUID PO (09:19)
--- NOTE | 2023-05-28 12:04 | WOUNDNOTE ---
wound photo: left lower leg
--- NOTE | 2023-05-28 12:04 | WOUNDNOTE ---
wound photo: left posterior lower leg (gelfoam in place)
[2023-05-28 12:45] LABS: Hematocrit 24.1 % (37-47); Hemoglobin 7.6 g/dL (12.0-15.0)
--- NOTE | 2023-05-28 13:47 | CHAPLAIN ---
Type of Pastoral Visit _x__ Initial Visit ___ Follow-up Visit ___ On-call Visit ___ General Patient Visit ___ Spiritual Assessment ___ Family Conference ___ Bereavement ___ Rapid Response ___ Code Blue ___ Other (describe below) Pastoral Care Referral From _x__ Patient ___ Family ___ Nurse ___ Physician ___ Boxing And Pressing Supervisor ___ Transportation Associate ___ Other (describe below) Sacrament/Intervention _x__ Active listening ___ Anointing ___ Scientology ___ Bereavement ___ Communion _x__ Nyla exploration ___ ___ Life review _x__ Prayer ___ Reconciliation ___ Sacrament of Sick _x__ Supportive presence ___ Wedding ___ Other (describe below) Pastoral Comments patient is able to express her experiences in the ED and hospital of late and the frustrations of recent complications; pt now waiting on some answers and a plan of action; pt wants prayer support and expresses her nyla in God; casual talk continues on topics of interest
--- NOTE | 2023-05-28 14:07 | PN_ITS ---
Progress Note Plastics Pt is wanting to put leg down and dangle it. Wound was unwrapped earlier today and evaluated by medicine. The gelfoam was le ft in place. Previous removed dressing is evaluated for quantity of drainage. The te wraps have limited blood staining. I unwrapped leg to assess wound and bleeding status. The gelfoam is in place and there appears to be clot beneath it when elevated in the corner. No active bleeding or dripping at present. Swelling in LE reduced from yesterday. The open wound appears as a linear skin defect of the posterior calf. Leg rewrapped leaving gelfoam in place. Adaptic placed over gelfoam and anterior pool laceration, followed by ABD's, Kerlex Roll, and Te Wrap. Foot elevated significantly off the bed and the patient advised of the importance to reduce swelling and prevent further bleeding. At this point, surgery for control of bleeding unnecessary. Wound closure will occur secondarily due to the amount of swelling present. Anticipate delayed healing due to anemia and location of wound. Because of the need for leg elevation and wound care (and the patient lives alone), she may be a candidate for rehab and outpatient management of the wound once hemostasis is confirmed.
--- NOTE | 2023-05-28 14:12 | CASEMGMT ---
BUD SALTER Assessment Face to Face with patient for initial transition planning/care coordination assessment. BUD SALTER introduced self and role at [facility], pt voices understanding. Pt is A&Ox4 and is resting comfortably in bed and is calm. Care providers, pharmacy, and demographics verified. Admitting dx: Leg Laceration with Bleeding and elevated INR LACE Strata: 2 PCP: Rikki Specialists: [facility] Cardio, Ablation- Dr Christina Pace, Endo- Dr Anjelica Morales, Uro- At [facility] (states she contacts them via telephone once per year). [facility]erred [facility]acy: [facility] Insurance: [employer] Prescription Benefit:Yes LNOK: Berna Green (Daughter and POA), Mitesh Green (TIA) Living Arrangements: Pt states living alone in a 1 story condo with a basement. 1 step to enter with no issues. Pt states the basement has 2 sets of hand rails. ADLs/IADLs: Pt states she is independent at home normally. Pt states she is normally independent with IADLs but has had a harder time these past few weeks. Pt states her daughter and TIA are able to provide help when she needs. Transportation: Patient, pt daughter, and pt TIA drive. DME: Pt states she borrowed a cane from a friend and has been using that recently. Pt states that she does not have a walker but reports she can borrow one from a friend if needed. Pt states she has hand rails for her toilet. Her shower is a walk-in and has a seat available. Denies home O2 history. HHC/SNF: Denies SNF history. States seeing [facility] for SN about 3 years ago for cellulitis and hematoma to her leg. Pt?s goal: Pt goal is to get healthy enough to be able to DC home alone safely. Pt states she would be willing to go to a SNF after DC. Plan: Possible SNF placement. Pt was educated that she was admitted under OBS and must stay for 3 midnights as an inpatient to qualify for [facility] to pay for her SNF stay. Pt states she understands this and reports she could most likely afford a short stay at a SNF. A list of SNF providers including quality and resource use data and consistent with the patient's preferred geographic region, medical needs, and insurance network were printed and provided from the [employer] Guide. Prices given to patient. Marleen Cameron RN, CM
[2023-05-28 14:21] VITALS: BP 118/69; PULSE 81; RESP 18; TEMP 36.6; O2SAT 96
[2023-05-28] MEDS: Juven (unflavored) Packet 1 PACKET PO (16:12)
--- NOTE | 2023-05-28 16:44 | CASEMGMT ---
Met with patient to complete BRISENO form. BRISENO form explained to patient who voiced understanding and signed form. Original form placed in pt?s chart and copy provided to?patient. Homa Matute, Discharge Planning Asst
--- NOTE | 2023-05-28 16:58 | CASEMGMT ---
Social Work SW received referral from RNCM that pt would like to go to SNF and a list of options was provided. SW met with pt and introduced self and role of SW. Pt confirms that she will need short term rehab prior to return home. Pt is aware that insurance will not cover cost of stay in ECF and pt will be responsible. SW provided pt with costs of facilities. Pt states she most likely will prefer to go to [facility] but would like to speak with her family tonight about this. Pt will need seen by therapy prior to referrals being sent. SW to follow up tomorrow for final choices and will send referrals as appropriate. BAKARI Nino
[2023-05-28 21:07] VITALS: BP 128/62; PULSE 82; RESP 16; TEMP 36.9; O2SAT 98
[2023-05-28 21:12] VITALS: PULSE 82
[2023-05-29] VITALS (11 sets, daily range): BP systolic 113–144; BP diastolic 51–72; PULSE 79–90; RESP 16–22; TEMP 36.7–37.2; O2SAT 95–99
[2023-05-29 07:09] LABS: Absolute Lymphocyte Count 0.74 X10^3/uL (0.83-4.51); Basophil# 0.02 X10^3/uL; Basophil% 0.2 % (0-1); Eosinophil# 0.31 X10^3/uL; Eosinophils% 2.9 % (0-5); Hematocrit 23.1 % (37-47); Hemoglobin 6.9 g/dL (12.0-15.0); Lymphocyte # 0.74 X10^3/ul (0.83-4.51); Mean Corp Hgb Conc 29.9 g/dL (32-36); Mean Corpuscular Hgb 30.1 pg (27.0-32.0); Mean Corpuscular Volume 100.9 fL (81-99); Mean Platelet Vol. 9.8 fl (6.2-12.0); Monocyte# 0.49 X10^3/uL; Monocyte% 4.6 % (0-10); NRBC Flagged by Analyzer 0 % (0-5); Neutrophil # 8.96 X10^3/uL (2.7-7.7); Neutrophil % 84.5 % (47-70); POSITIVE MORPHOLOGY YES; Platelet Count 244 K/mm3 (150-450); RBC Distribution Width CV 18.9 % (11.6-14.6); RBC Distribution Width SD 68.7 fl (35.1-43.9); Red Blood Count 2.29 M/mm3 (4.2-5.4); White Blood Count 10.6 K/mm3 (4.4-11.0)
[2023-05-29 07:22] LABS: Differential Indicated SCAN CRITERIA MET
[2023-05-29 07:30] LABS: International Normalized Ratio 1.5; Prothrombin Time (Protime)PT. 17.9 SECONDS (11.7-14.9)
[2023-05-29] MEDS: Juven (unflavored) Packet 1 PACKET PO ×2 (07:31→17:24)
[2023-05-29 08:01] LABS: Anion Gap 3 (5-15); BUN 23 mg/dL (7-18); Calcium,Total 7.9 mg/dL (8.5-10.1); Chloride 111 mmol/L (98-107); Creatinine, Serum 0.92 mg/dL (0.55-1.02); EST Glomerular Filtration Rate 62 mL/min (>60); Est Glom Filt Rate - Afr Amer 75 mL/min (>60); Glucose 156 mg/dL (74-106); Potassium 4.1 mmol/L (3.5-5.1); Sodium Level 140 mmol/L (136-145)
[2023-05-29 08:22] LABS: Anisocytosis 2+
--- NOTE | 2023-05-29 08:25 | PCM.PN.HOSP ---
Reason for Visit Reason for Visit: Diagnoses Hemorrhagic disorder due to extrinsic circulating 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s (05/28/23) Unspecified atrial flutter (05/28/23) Abnormal coagulation profile (05/28/23) Contusion of left lower leg, initial encounter (05/28/23) Adverse effect of 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s, initial encounter (05/28/23) Subjective Subjective No new events. Objective Data Objective Data Vital Signs: Vital Signs Temp Pulse Resp BP Pulse Ox O2 Del Method O2 Flow Rate 36.7 C 90 16 134/72 H 95 Room Air 2 05/29/23 05:56 05/29/23 07:19 05/29/23 05:56 05/29/23 05:56 05/29/23 05:56 05/29/23 05:56 05/27/23 12:11 Oxygen Flow Rate (L/min) [3] 2 Oxygen Flow Rate (L/min) [2] 2 Oxygen Flow Rate (L/min) [1 ( 2 Initial Baseline)] Oxygen Flow Rate (L/min) 0 Oxygen Delivery Method [3] Nasal Cannula Oxygen Delivery Method [2] Nasal Cannula Oxygen Delivery Method [1 ( Nasal Cannula Initial Baseline)] Oxygen Delivery Method Room Air Weight: 85.3 kg Body Mass Index (BMI) 30.3 Intake & Output: Intake and Output for Last 24 Hours 05/27/23 05/28/23 05/29/23 23:59 23:59 23:59 Intake Total 500.5 / 500.5 500 / 500 Output Total 700 / 700 400 / 400 Balance 500.5 / 500.5 -200 / -200 -400 / -400 Lab / Micro Data 05/29/23 06:40 05/29/23 06:40 Labs: Laboratory Results - last 24 hr 05/28/23 12:23: Hgb 7.6 L, Hct 24.1 L 05/29/23 06:40: WBC 10.6, RBC 2.29 L, Hgb 6.9 L, Hct 23.1 L, MCV 100.9 H, MCH 30.1, MCHC 29.9 L, RDW Std Deviation 68.7 H, RDW Coeff of Jacque 18.9 H, Plt Count 244, MPV 9.8, Immature Gran % (Auto) 0.800, Neut % (Auto) 84.5 H, Lymph % (Auto) 7.0 L, Hopkins % (Auto) 4.6, Eos % (Auto) 2.9, Baso % (Auto) 0.2, Absolute Neuts (auto) 9.0 H, Absolute Lymphs (auto) 0.74 L, Nucleated RBC % 0, Anisocytosis 2+, PT 17.9 H, INR 1.5, Sodium 140, Potassium 4.1, Chloride 111 H, Carbon Dioxide 26.0, Anion Gap 3 L, BUN 23 H, Creatinine 0.92, Estim Creat Clear Calc 44.90, Est GFR (MDRD) Af Amer 75, Est GFR (MDRD) Non-Af 62, BUN/Creatinine Ratio 25.0 H, Glucose 156 H, Calcium 7.9 L Physical Exam Const alert and no apparent distress HEENT head/scalp atraumatic Extremity Extremity Narrative: LLE wrapped, Neuro Sensorium / Orientation: alert Psych affect normal Assessment & Plan Assessment/Plan (1) Hematoma of left lower extremity: (2) 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: (3) Supratherapeutic INR: PLAN: Plan Left leg hematoma after leg laceration with resultant anemia/acute blood loss anemia secondary to left leg laceration Patient hurt left lower extremity 5 days ago and had laceration repair in ED, this a.m. area split open and required sedation with irrigation of clot and thrombin and repeated closure Wound care PRS following. no imminent plans for surgery at this point. Patient presently reports feeling much better than she did last night Unclear if patient will need OR's will make n.p.o. at midnight in the event she does Hemoglobin last month was 11, today down to 8.6 Acute blood loss anemia 2/2 laceration and coagulopathy Hg dropped from 11 to 6.9. Transfuse 1 unit. Chronic conditions: History of atrial fibrillation-Status post ablation and pacemaker-Presently normal sinus rhythm-Continue beta-nely, hold Coumadin-Patient denies any mechanical valves or other indications for Coumadin over DOAC but reports she is on Coumadin per her preference did discuss with the patient about if she is ever used other 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s such as apixaban or rivaroxaban. Her immediate response is that she has read bad things about those medications. She cannot site of sources. I did talk with her about the ease of the other medications and also assuage some of her fears at these medications are in your system forever . She seems not the least bit interested in changing to DOAC's at this time. Nonetheless, anticoagulation to be held in regards to this hematoma and acute blood loss anemia. hypertension-BP was somewhat borderline in ED after sedation so we will hold OLYA-Continue to monitor Chronic back pain-Will need to continue to follow with pain management on outpatient basis-Holding prednisone, patient had only received 1 dose this a.m. and reports she did not feel well after she took it DVT ppx: SCDs to right lower extremity Charges/Coding Visit Charges Inpatient E&M: 36865 Subs Hosp L1
--- NOTE | 2023-05-29 08:59 | CASEMGMT ---
Addendum entered by Homa Matute 05/29/23 10:50: Patient has been accepted by [facility]. [facility] has agreed to allow patient to only pay 2wks upfront. SW updated. Homa Matute, Discharge Planning Asst. Original Note: Discharge Planning Referral sent to [facility] via [facility]. Homa Matute, Discharge Planning Asst.
[2023-05-29] MEDS: Menthol/Lanolin/Calamine/Znox 113 GM Tube 1 APPLIC TOPICAL ×2 (09:54→21:39)
[2023-05-29] MEDS: Miconazole Nitrate 43 GM Bottle 1 APPLIC TOPICAL ×2 (09:54→21:39)
[2023-05-29] MEDS: Metoprolol Tartrate 25 MG Tablet PO ×2 (09:55→21:38)
[2023-05-29] MEDS: Methenamine Hippurate 1 GM Tablet PO (09:55)
--- NOTE | 2023-05-29 10:25 | CASEMGMT ---
Social Work SW met with pt and discussed discharge plan. Pt confirms plan to go to [facility] at discharge. SW explained that referral had been made due to conversation yesterday and [facility] is able to accept pt. Pt made aware that if pt is discharged tomorrow, pt will be private pay at [facility]. If it is medically necessary for pt to stay until Thursday, pt will qualify for skilled stay under Medicare benefit. Pt expressing understanding. Plan: [facility]. If pt is discharged Thursday/Thursday pt will be self pay at nursing facility. If pt is discharged Thursday or after, pt will be skilled under her Medicare Benefit. BAKARI Nino
--- NOTE | 2023-05-29 15:28 | PN_ITS ---
Progress Note Plastics The pt voices improvement in pain. She is noted to have her leg not as elevated as suggested to her. The dressing is removed. There is minimal drainage on the dressing from yesterday. The gelfoam remains in place. There is no active bleeding from the site and no expansion of hematoma despite hgb level of 6.9 noted. Agree with transfusion and recheck of H&H. Once her blood count appears stable, agree with d/c to outpatient facility for [facility] care and f/u in wound clinic.
--- NOTE | 2023-05-29 17:09 | CASEMGMT ---
Social Work PASRR completed in [facility] for admission to nursing facility. BAKARI Nino
[2023-05-29] MEDS: 0.9% Saline Lock 10 ML Syringe IV (17:24)
[2023-05-30] MEDS: Levothyroxine 25 MCG TABLET 12.5 MCG PO (06:06)
[2023-05-30 06:08] VITALS: BP 149/78; PULSE 81; RESP 16; TEMP 36.6; O2SAT 97
[2023-05-30 06:52] LABS: Absolute Lymphocyte Count 0.99 X10^3/uL (0.83-4.51); Absolute Neutrophil Count 9.3 X10^3/uL (2.0-7.7); Basophil# 0.04 X10^3/uL; Basophil% 0.3 % (0-1); Eosinophil# 0.36 X10^3/uL; Eosinophils% 3.1 % (0-5); Hematocrit 25.2 % (37-47); Hemoglobin 7.9 g/dL (12.0-15.0); Lymphocyte # 0.99 X10^3/ul (0.83-4.51); Lymphocyte % 8.5 % (19-41); Mean Corp Hgb Conc 31.3 g/dL (32-36); Mean Corpuscular Hgb 29.5 pg (27.0-32.0); Mean Platelet Vol. 9.4 fl (6.2-12.0); Monocyte# 0.85 X10^3/uL; Monocyte% 7.3 % (0-10); NRBC Flagged by Analyzer 0 % (0-5); Neutrophil # 9.26 X10^3/uL (2.7-7.7); Neutrophil % 79.6 % (47-70); POSITIVE MORPHOLOGY YES; Platelet Count 250 K/mm3 (150-450); RBC Distribution Width CV 20.3 % (11.6-14.6); RBC Distribution Width SD 68.3 fl (35.1-43.9); Red Blood Count 2.68 M/mm3 (4.2-5.4); White Blood Count 11.6 K/mm3 (4.4-11.0)
[2023-05-30 07:02] LABS: International Normalized Ratio 1.4; Prothrombin Time (Protime)PT. 16.9 SECONDS (11.7-14.9)
[2023-05-30 07:44] VITALS: BP 128/63; PULSE 80; RESP 18; TEMP 36.6; O2SAT 96
[2023-05-30] MEDS: Juven (unflavored) Packet 1 PACKET PO (07:47)
[2023-05-30 08:06] LABS: Differential Indicated SCAN CRITERIA MET
[2023-05-30 08:19] LABS: Anisocytosis 1+; Platelet Estimate ADEQUATE (ADEQ); Poikilocytosis 1+
[2023-05-30 08:20] LABS: Hypochromasia 1+; Ovalocyte RARE
--- NOTE | 2023-05-30 08:45 | PN.HOSP_ITS ---
Subjective Subjective Feels well. No new events. Objective Data Objective Data Vital Signs: Vital Signs Temp Pulse Resp BP Pulse Ox O2 Del Method O2 Flow Rate 36.6 C 80 18 128/63 H 96 Room Air 2 05/30/23 07:44 05/30/23 07:44 05/30/23 07:44 05/30/23 07:44 05/30/23 07:44 05/30/23 07:44 05/27/23 12:11 Oxygen Flow Rate (L/min) [3] 2 Oxygen Flow Rate (L/min) [2] 2 Oxygen Flow Rate (L/min) [1 ( 2 Initial Baseline)] Oxygen Flow Rate (L/min) 0 Oxygen Delivery Method [3] Nasal Cannula Oxygen Delivery Method [2] Nasal Cannula Oxygen Delivery Method [1 ( Nasal Cannula Initial Baseline)] Oxygen Delivery Method Room Air Weight: 85.3 kg Body Mass Index (BMI) 30.3 Intake & Output: Intake and Output for Last 24 Hours 05/28/23 05/29/23 05/30/23 23:59 23:59 23:59 Intake Total 500 / 500 200 / 200 400 / 400 Output Total 700 / 700 1000 / 1000 300 / 300 Balance -200 / -200 -800 / -800 100 / 100 Lab / Micro Data 05/30/23 06:42 05/29/23 06:40 Labs: Laboratory Results - last 24 hr 05/29/23 09:00: Blood Type O NEGATIVE, Antibody Screen NEGATIVE, Crossmatch See Detail 05/30/23 06:42: WBC 11.6 H, RBC 2.68 L, Hgb 7.9 L, Hct 25.2 L, MCV 94.0 D, MCH 29.5, MCHC 31.3 L, RDW Std Deviation 68.3 H, RDW Coeff of Jacque 20.3 H, Plt Count 250, MPV 9.4, Immature Gran % (Auto) 1.200 H, Neut % (Auto) 79.6 H, Lymph % (Auto) 8.5 L, Loíza % (Auto) 7.3, Eos % (Auto) 3.1, Baso % (Auto) 0.3, Absolute Neuts (auto) 9.3 H, Absolute Lymphs (auto) 0.99, Nucleated RBC % 0, Platelet Estimate ADEQUATE, Hypochromasia 1+, Poikilocytosis 1+, Anisocytosis 1+, Ovalocytes RARE, PT 16.9 H, INR 1.4 Physical Exam Const alert and no apparent distress HEENT head/scalp atraumatic Neuro Sensorium / Orientation: awake and alert Psych affect normal Assessment & Plan Assessment/Plan (1) Hematoma of left lower extremity: (2) 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: (3) Supratherapeutic INR: PLAN: Plan Left leg hematoma after leg laceration with resultant anemia/acute blood loss anemia secondary to left leg laceration * Patient hurt left lower extremity 5 days ago and had laceration repair in ED, this a.m. area split open and required sedation with irrigation of clot and thrombin and repeated closure * Wound care * PRS following. no imminent plans for surgery at this point. * Patient presently reports feeling much better than she did last night * Unclear if patient will need OR's will make n.p.o. at midnight in the event she does * Hemoglobin last month was 11, today down to 8.6 * Remove sutures in 3 days. Acute blood loss anemia * 2/2 laceration and coagulopathy * Hg dropped from 11 to 6.9. Transfuse 1 unit, now up to 7.9. No additional transfusions at this time. Chronic conditions: * History of atrial fibrillation-Status post ablation and pacemaker-Presently normal sinus rhythm-Continue beta-nely, hold Coumadin-Patient denies any mechanical valves or other indications for Coumadin over DOAC but reports she is on Coumadin per her preference did discuss with the patient about if she is ever used other 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s such as apixaban or rivaroxaban. Her immediate response is that she has read bad things about those medications. She cannot site of sources. I did talk with her about the ease of the other medications and also assuage some of her fears at these medications are in your system forever . She seems not the least bit interested in changing to DOAC's at this time. Nonetheless, anticoagulation to be held in regards to this hematoma and acute blood loss anemia. Hold anticoagulation for 1 week as long as hemoglobin remain stable. * hypertension-BP was somewhat borderline in ED after sedation so we will hold OLYA-Continue to monitor * Chronic back pain-Will need to continue to follow with pain management on outpatient basis-Holding prednisone, patient had only received 1 dose this a.m. and reports she did not feel well after she took it DVT ppx: SCDs to right lower extremity
--- NOTE | 2023-05-30 10:55 | TREXTCAR_ITS ---
Diet Diet Order/Speech Therapy: 05/28/23 11:57 Diet: Regular - General Is pt able to select menu?: Yes Wound(s) left lower ext: Wound Type: Surgical Incision Dressing Change: Adaptic left hand: Wound Type: Abrasion Therapies Weight Bearing: Full weight bearing Extremity Affected:: Right Lower Physical Therapy: Eval and Treat Occupational Therapy: Eval and Treat Problem/Diagnosis (1) Hematoma of left lower extremity: Status: Acute Code(s): S80.12XA - Contusion of left lower leg, initial encounter (2) 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: Status: Chronic Code(s): I48.92 - Unspecified atrial flutter (3) Supratherapeutic INR: Status: Acute Code(s): R79.1 - Abnormal coagulation profile Plan Left leg hematoma after leg laceration with resultant anemia/acute blood loss anemia secondary to left leg laceration * Patient hurt left lower extremity 5 days ago and had laceration repair in ED, this a.m. area split open and required sedation with irrigation of clot and thrombin and repeated closure * Wound care * PRS following. no imminent plans for surgery at this point. * Patient presently reports feeling much better than she did last night * Unclear if patient will need OR's will make n.p.o. at midnight in the event she does * Hemoglobin last month was 11, today down to 8.6 * Remove sutures in 3 days. Acute blood loss anemia * 2/2 laceration and coagulopathy * Hg dropped from 11 to 6.9. Transfuse 1 unit, now up to 7.9. No additional transfusions at this time. Chronic conditions: * History of atrial fibrillation-Status post ablation and pacemaker-Presently normal sinus rhythm-Continue beta-nely, hold Coumadin-Patient denies any mechanical valves or other indications for Coumadin over DOAC but reports she is on Coumadin per her preference did discuss with the patient about if she is ever used other 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s such as apixaban or rivaroxaban. Her immediate response is that she has read bad things about those medications. She cannot site of sources. I did talk with her about the ease of the other medications and also assuage some of her fears at these medications are in your system forever . She seems not the least bit interested in changing to DOAC's at this time. Nonetheless, anticoagulation to be held in regards to this hematoma and acute blood loss anemia. Hold anticoagulation for 1 week as long as hemoglobin remain stable. * hypertension-BP was somewhat borderline in ED after sedation so we will hold OYLA-Continue to monitor * Chronic back pain-Will need to continue to follow with pain management on outpatient basis-Holding prednisone, patient had only received 1 dose this a.m. and reports she did not feel well after she took it DVT ppx: SCDs to right lower extremity Allergies/Procedures Done in Hospital Allergies No Known Allergies Allergy (Verified 05/27/23 09:50) Procedures: None Type of Care/Length of Stay Estimated LOS: Convalescent Care Less Than 30 days Type of Care Needed: Skilled Rehab Potential: Good Prognosis: Good Additional Orders/Day of Discharge Day of Discharge: 05/30/23 Dietary and Speech Recommendations Dietitian Recommendations/Changes: recommend regular diet as tolerated; Daniel BID for wounds when diet advanced, will d/c ensure as ordered currently. Discharge Plan Admission Admit Date/Time: 05/28/23 14:44 Primary Reason for Your Visit: acute blood loss anemia. Attending Provider: Abelardo Arthur Primary Care Provider: Yaya Brandt Chi Consulting Providers: Rupinder Munroe; Adrienne Stewart Instructions Additional Instructions / Restrictions: Follow up with wound care in 1 weeks. Remove sutures in right pool in 3-4 days. Discharge Orders/Prescriptions Prescriptions: New acetaminophen 325 mg Tablet 650 mg PO Q6H PRN PRN (Reason: Pain 1-10 Or Fever >100.7) Qty: 0 0RF melatonin 3 mg Tablet 3 mg PO QHS PRN PRN (Reason: Insomnia) Qty: 0 0RF Daniel (with collagen) 7-7-1.5 gram Powder In Packet 1 packet PO BIDCM Qty: 0 0RF Continued cholecalciferol (vitamin D3) 2,000 unit capsule 2,000 unit PO QODAY levothyroxine 25 mcg tablet 12.5 mcg PO QODAY ascorbic acid (vitamin C) 1,000 MG tablet 500 mg PO BID magnesium oxide 400 MG tablet 400 mg PO DAILY vitamin A 10,000 UNIT capsule 10,000 unit PO QODAY L.acidoph, paracasei,B. lactis 1 EACH capsule 1 ea PO DAILY vitamin B complex Capsule 1 cap PO DAILY HYDRO EYE 1 tab PO DAILY methenamine hippurate 1 GM tablet 1 g PO DAILY metoprolol tartrate 25 mg tablet 25 mg PO BID Qty: 180 3RF Held warfarin 2.5 mg tablet 2.5 mg PO DAILY Hold Instructions: Resume on 06/08/23. Hemoglobin must be stable to resume. Protocol: Dose Management Condition: Thursday Dose/Route: 3.5 mg Instruction: 1 x 1 mg tablet, 1 x 2.5 mg tablet Condition: Thursday Dose/Route: 3.5 mg Instruction: 1 x 1 mg tablet, 1 x 2.5 mg tablet Condition: Thursday Dose/Route: 3.5 mg Instruction: 1 x 1 mg tablet, 1 x 2.5 mg tablet Condition: Thursday Dose/Route: 3.5 mg Instruction: 1 x 1 mg tablet, 1 x 2.5 mg tablet Condition: Dose/Route: 3.5 mg Instruction: 1 x 1 mg tablet, 1 x 2.5 mg tablet Condition: Thursday Dose/Route: 3.5 mg Instruction: 1 x 1 mg tablet, 1 x 2.5 mg tablet Condition: Thursday Dose/Route: 3.5 mg Instruction: 1 x 1 mg tablet, 1 x 2.5 mg tablet Protocol Text: Adjustment Start Date: 04/02/23 INR Value: 2.8 INR Date: 04/02/23 Recheck Date: 05/02/23 Rx Instructions: TAKE ONE 1MG TABLET AND ONE 2.5MG TABLET TOGETHER ONCE DAILY FOR A TOTAL DOSE OF 3.5MG warfarin 1 mg tablet 1 mg PO DAILY Hold Instructions: Resume on 06/08/23. hemoglobin must be stable to resume. Protocol: Dose Management Condition: Thursday Dose/Route: 3.5 mg Instruction: 1 x 1 mg tablet, 1 x 2.5 mg tablet Condition: Thursday Dose/Route: 3.5 mg Instruction: 1 x 1 mg tablet, 1 x 2.5 mg tablet Condition: Thursday Dose/Route: 3.5 mg Instruction: 1 x 1 mg tablet, 1 x 2.5 mg tablet Condition: Thursday Dose/Route: 3.5 mg Instruction: 1 x 1 mg tablet, 1 x 2.5 mg tablet Condition: Dose/Route: 3.5 mg Instruction: 1 x 1 mg tablet, 1 x 2.5 mg tablet Condition: Thursday Dose/Route: 3.5 mg Instruction: 1 x 1 mg tablet, 1 x 2.5 mg tablet Condition: Thursday Dose/Route: 3.5 mg Instruction: 1 x 1 mg tablet, 1 x 2.5 mg tablet Protocol Text: Adjustment Start Date: 04/02/23 INR Value: 2.8 INR Date: 04/02/23 Recheck Date: 05/02/23 Rx Instructions: TAKE ONE 1MG TABLET AND ONE 2.5MG TABLET TOGETHER ONCE DAILY FOR A TOTAL DOSE OF 3.5MG Discontinued losartan 25 mg tablet 25 mg PO QHS prednisone 20 mg tablet 40 mg PO DAILY 7 Days Qty: 14 0RF hydrocodone-acetaminophen 5-325 mg tablet 1 tab PO Q6H PRN (Reason: PAIN ) 7 Days Qty: 20 0RF Referrals / Follow Up: Yaya Brandt Chi, MD [Primary Care Provider] - Within 2 Weeks Disposition Disposition (needs filled in before D/C Order can be placed): [facility]
[2023-05-30 11:00] VITALS: PULSE 80
[2023-05-30] MEDS: Metoprolol Tartrate 25 MG Tablet PO (11:00)
[2023-05-30] MEDS: Menthol/Lanolin/Calamine/Znox 113 GM Tube 1 APPLIC TOPICAL (11:01)
[2023-05-30] MEDS: Miconazole Nitrate 43 GM Bottle 1 APPLIC TOPICAL (11:01)
[2023-05-30] MEDS: Methenamine Hippurate 1 GM Tablet PO (11:01)
--- NOTE | 2023-05-30 11:01 | DS.PCM_ITS ---
Providers Date of Admission: 05/28/23 Primary Care Physician: Dr. Yaya Brandt MD Consultations 05/27/23 15:23 Consult: Onc/Wound/piece work checker Routine Comment: Reason for Consult:: Left leg wound Consult: Plastic Surgery Routine Consulting Provider: Rupinder Munroe Reason for Consult: Left leg lac EMERGENT Consult: No MD Notified: Yes Date Notified: 05/27/23 Time Notified: 13:57 Method of Notification: ED Physician Initiated Reason For Visit: LEG LACERATION W/ BLEEDING AND ELEVATED INR Diagnosis Discharge Diagnosis (1) Hematoma of left lower extremity: Status: Acute Code(s): S80.12XA - Contusion of left lower leg, initial encounter (2) 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: Status: Chronic Code(s): I48.92 - Unspecified atrial flutter (3) Supratherapeutic INR: Status: Acute Code(s): R79.1 - Abnormal coagulation profile Plan Left leg hematoma after leg laceration with resultant anemia/acute blood loss anemia secondary to left leg laceration * Patient hurt left lower extremity 5 days ago and had laceration repair in ED, this a.m. area split open and required sedation with irrigation of clot and thrombin and repeated closure * Wound care * PRS following. no imminent plans for surgery at this point. * Patient presently reports feeling much better than she did last night * Unclear if patient will need OR's will make n.p.o. at midnight in the event she does * Hemoglobin last month was 11, today down to 8.6 * Remove sutures in 3 days. Acute blood loss anemia * 2/2 laceration and coagulopathy * Hg dropped from 11 to 6.9. Transfuse 1 unit, now up to 7.9. No additional transfusions at this time. Chronic conditions: * History of atrial fibrillation-Status post ablation and pacemaker-Presently normal sinus rhythm-Continue beta-nely, hold Coumadin-Patient denies any mechanical valves or other indications for Coumadin over DOAC but reports she is on Coumadin per her preference did discuss with the patient about if she is ever used other 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s such as apixaban or rivaroxaban. Her immediate response is that she has read bad things about those medications. She cannot site of sources. I did talk with her about the ease of the other medications and also assuage some of her fears at these medications are in your system forever . She seems not the least bit interested in changing to DOAC's at this time. Nonetheless, anticoagulation to be held in regards to this hematoma and acute blood loss anemia. Hold anticoagulation for 1 week as long as hemoglobin remain stable. * hypertension-BP was somewhat borderline in ED after sedation so we will hold OLYA-Continue to monitor * Chronic back pain-Will need to continue to follow with pain management on outpatient basis-Holding prednisone, patient had only received 1 dose this a.m. and reports she did not feel well after she took it DVT ppx: SCDs to right lower extremity Medications at Discharge Home Medications ascorbic acid (vitamin C) 1,000 mg tablet 500 mg PO BID SUPPLEMENT 10/28/16 cholecalciferol (vitamin D3) 50 mcg (2,000 unit) capsule 2,000 unit PO QODAY SUP PLEMENT 11/11/18 L.acidoph, paracasei,B. lactis 10 billion cell capsule 1 ea PO DAILY GUT HEALTH 03/21/19 magnesium oxide 400 mg (241.3 mg magnesium) tablet 400 mg PO DAILY SUPPLEMENT 03/21/19 vitamin A 3,000 mcg (10,000 unit) capsule 10,000 unit PO QODAY SUPPLEMENT 03/21/19 methenamine hippurate 1 gram tablet 1 g PO DAILY UTI PREVENTION 06/14/20 HYDRO EYE 1 tab PO DAILY EYE HEALTH 06/21/20 levothyroxine 25 mcg tablet 12.5 mcg PO QODAY THYROID 12/12/21 vitamin B complex 1 cap PO DAILY SUPPLEMENT 06/17/22 metoprolol tartrate 25 mg tablet 25 mg PO BID BLOOD PRESSURE #180 tabs 10/07/22 warfarin 1 mg tablet 1 mg PO DAILY BLOOD THINNER 05/27/23 warfarin 2.5 mg tablet 2.5 mg PO DAILY BLOOD THINNER 05/27/23 acetaminophen 325 mg tablet 650 mg (2 x 325 mg) PO Q6H PRN PRN Pain 1-10 Or Fe donna >100.7 #0 tabs 05/30/23 arginine 7 gram-glutam 7 gram-CaHMB 1.5 [id number] oral pwd pkt (Daniel (with collagen)) 1 packet PO BIDCM #0 ea 05/30/23 ferrous sulfate 325 mg (65 mg iron) tablet 325 mg PO DAILY #30 tabs 05/30/23 melatonin 3 mg tablet 3 mg PO QHS PRN PRN Insomnia #0 tabs 05/30/23 Hospital Course Operations None Procedures None Summary of Care Provided Minutes Spent on Discharge: 32 Hospital Course: Patient presents with acute blood loss anemia secondary to left leg hematoma. Prior to this admission, patient was seen in the emergency room and was getting into or out of a car and had very minimal contact with a car frame and then had pronounced bleeding basically saturating her boots on her floor at her house. Had anterior wound sutured on 22 May. Came back due to worsening hematoma. Patient hematoma on her left lateral leg but also she previously had a hematoma on her posterior leg that unroofed and left a very large skin tear. Patient was seen by plastic surgery and no surgery was recommended at this time. Patient did require unit of blood while she was here. Currently her hemoglobin is 7.9. Patient is stable for discharge. Weight / BMI Weight Weight: 85.3 kg Body Mass Index (BMI) 30.3 ABG / Lab / Microbiology Data 05/30/23 06:42 05/29/23 06:40 Laboratory: Laboratory Results - last 24 hr 05/29/23 09:00: Blood Type O NEGATIVE, Antibody Screen NEGATIVE, Crossmatch See Detail 05/30/23 06:42: WBC 11.6 H, RBC 2.68 L, Hgb 7.9 L, Hct 25.2 L, MCV 94.0 D, MCH 29.5, MCHC 31.3 L, RDW Std Deviation 68.3 H, RDW Coeff of Jacque 20.3 H, Plt Count 250, MPV 9.4, Immature Gran % (Auto) 1.200 H, Neut % (Auto) 79.6 H, Lymph % (Auto) 8.5 L, [facility] % (Auto) 7.3, Eos % (Auto) 3.1, Baso % (Auto) 0.3, Absolute Neuts (auto) 9.3 H, Absolute Lymphs (auto) 0.99, Nucleated RBC % 0, Platelet Estimate ADEQUATE, Hypochromasia 1+, Poikilocytosis 1+, Anisocytosis 1+, Ovalocytes RARE, PT 16.9 H, INR 1.4 Meaningful Use Info Meaningful Use Diagnoses (Choose all that apply): None applicable Discharge Plan Admission Admit Date/Time: 05/28/23 14:44 Primary Reason for Your Visit: acute blood loss anemia. Attending Provider: Abelardo Arthur Primary Care Provider: Yaya Brandt Chi Consulting Providers: Rupinder Munroe; Adrienne Stewart Instructions Additional Instructions / Restrictions: Follow up with wound care in 1 weeks. Remove sutures in right pool in 3-4 days. Discharge Orders/Prescriptions Prescriptions: New acetaminophen 325 mg Tablet 650 mg PO Q6H PRN PRN (Reason: Pain 1-10 Or Fever >100.7) Qty: 0 0RF melatonin 3 mg Tablet 3 mg PO QHS PRN PRN (Reason: Insomnia) Qty: 0 0RF Daniel (with collagen) 7-7-1.5 gram Powder In Packet 1 packet PO BIDCM Qty: 0 0RF ferrous sulfate 325 mg (65 mg iron) tablet 325 mg PO DAILY Qty: 30 0RF Continued cholecalciferol (vitamin D3) 2,000 unit capsule 2,000 unit PO QODAY levothyroxine 25 mcg tablet 12.5 mcg PO QODAY ascorbic acid (vitamin C) 1,000 MG tablet 500 mg PO BID magnesium oxide 400 MG tablet 400 mg PO DAILY vitamin A 10,000 UNIT capsule 10,000 unit PO QODAY L.acidoph, paracasei,B. lactis 1 EACH capsule 1 ea PO DAILY vitamin B complex Capsule 1 cap PO DAILY HYDRO EYE 1 tab PO DAILY methenamine hippurate 1 GM tablet 1 g PO DAILY metoprolol tartrate 25 mg tablet 25 mg PO BID Qty: 180 3RF Held warfarin 2.5 mg tablet 2.5 mg PO DAILY Hold Instructions: Resume on 06/08/23. Hemoglobin must be stable to resume. Protocol: Dose Management Condition: Thursday Dose/Route: 3.5 mg Instruction: 1 x 1 mg tablet, 1 x 2.5 mg tablet Condition: Thursday Dose/Route: 3.5 mg Instruction: 1 x 1 mg tablet, 1 x 2.5 mg tablet Condition: Thursday Dose/Route: 3.5 mg Instruction: 1 x 1 mg tablet, 1 x 2.5 mg tablet Condition: Thursday Dose/Route: 3.5 mg Instruction: 1 x 1 mg tablet, 1 x 2.5 mg tablet Condition: Dose/Route: 3.5 mg Instruction: 1 x 1 mg tablet, 1 x 2.5 mg tablet Condition: Thursday Dose/Route: 3.5 mg Instruction: 1 x 1 mg tablet, 1 x 2.5 mg tablet Condition: Thursday Dose/Route: 3.5 mg Instruction: 1 x 1 mg tablet, 1 x 2.5 mg tablet Protocol Text: Adjustment Start Date: 04/02/23 INR Value: 2.8 INR Date: 04/02/23 Recheck Date: 05/02/23 Rx Instructions: TAKE ONE 1MG TABLET AND ONE 2.5MG TABLET TOGETHER ONCE DAILY FOR A TOTAL DOSE OF 3.5MG warfarin 1 mg tablet 1 mg PO DAILY Hold Instructions: Resume on 06/08/23. hemoglobin must be stable to resume. Protocol: Dose Management Condition: Thursday Dose/Route: 3.5 mg Instruction: 1 x 1 mg tablet, 1 x 2.5 mg tablet Condition: Thursday Dose/Route: 3.5 mg Instruction: 1 x 1 mg tablet, 1 x 2.5 mg tablet Condition: Thursday Dose/Route: 3.5 mg Instruction: 1 x 1 mg tablet, 1 x 2.5 mg tablet Condition: Thursday Dose/Route: 3.5 mg Instruction: 1 x 1 mg tablet, 1 x 2.5 mg tablet Condition: Dose/Route: 3.5 mg Instruction: 1 x 1 mg tablet, 1 x 2.5 mg tablet Condition: Thursday Dose/Route: 3.5 mg Instruction: 1 x 1 mg tablet, 1 x 2.5 mg tablet Condition: Thursday Dose/Route: 3.5 mg Instruction: 1 x 1 mg tablet, 1 x 2.5 mg tablet Protocol Text: Adjustment Start Date: 04/02/23 INR Value: 2.8 INR Date: 04/02/23 Recheck Date: 05/02/23 Rx Instructions: TAKE ONE 1MG TABLET AND ONE 2.5MG TABLET TOGETHER ONCE DAILY FOR A TOTAL DOSE OF 3.5MG Discontinued losartan 25 mg tablet 25 mg PO QHS prednisone 20 mg tablet 40 mg PO DAILY 7 Days Qty: 14 0RF hydrocodone-acetaminophen 5-325 mg tablet 1 tab PO Q6H PRN (Reason: PAIN ) 7 Days Qty: 20 0RF Referrals / Follow Up: Yaya Brandt Chi, MD [Primary Care Provider] - Within 2 Weeks Disposition Disposition (needs filled in before D/C Order can be placed): [facility] Facility Charges/Coding Visit Charges Inpatient E&M: 22887 Disch Hosp >30min
--- NOTE | 2023-05-30 11:40 | CASEMGMT ---
Social Work Pt being discharged to [facility] today private pay. Pt asked to speak w/SW. SW spoke w/SW, explained it will be private pay at [facility], pt states understanding and agreeable. She wanted to call Rosalind at [facility] but misplaced her card. SW got her number and gave it to pt. Pt to [facility] today private pay, green sheet on the chart. STACY Pritchard
[2023-05-30 14:47] VITALS: BP 124/70; PULSE 70; RESP 18; TEMP 37.1; O2SAT 99
== END 2023-05-30 15:20 | disposition skilled nursing facility (03) | DRG 580 ==
LOC: ED 14:00 → MS3 14:06
PROVIDERS: Admitting Provider Internal Medicine; Emergency Provider Emergency Medicine; PCP Family Medicine Geriatric Medicine
DX: S81.812A Laceration without foreign body, left lower leg, initial encounter (principal); D62 Acute posthemorrhagic anemia; I48.92 Unspecified atrial flutter; I48.0 Paroxysmal atrial fibrillation; I10 Essential (primary) hypertension; E03.9 Hypothyroidism, unspecified; E78.5 Hyperlipidemia, unspecified; M54.9 Dorsalgia, unspecified; R79.1 Abnormal coagulation profile; T45.515A Adverse effect of 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s, initial encounter; G89.29 Other chronic pain; W22.09XA Striking against other stationary object, initial encounter; Z79.01 Long term (current) use of 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s; Z87.891 Personal history of nicotine dependence; Z95.0 Presence of cardiac pacemaker; Z79.890 Hormone replacement therapy; Z79.899 Other long term (current) drug therapy
CPT/HCPCS: 36415; 80048; 80053; 84443; 85014; 85018; 85025; 85610; 85730; 86850; 86900; 86901; 86920; 86922; 93005; 97162; 97165; 97802; 99283; 99285; J7040; P9016; A4216; J2405; J3490

== ENCOUNTER → 2023-06-01 | Outpatient (REF) | payer MEDICARE, OTHER, SELFPAY ==
[2023-06-01 09:18] LABS: Absolute Neutrophil Count 7.7 X10^3/uL (2.0-7.7); Basophil# 0.02 X10^3/uL; Basophil% 0.2 % (0-1); Eosinophil# 0.37 X10^3/uL; Eosinophils% 3.8 % (0-5); Hematocrit 27.7 % (37-47); Hemoglobin 8.3 g/dL (12.0-15.0); Lymphocyte % 8.2 % (19-41); Mean Corpuscular Hgb 29.2 pg (27.0-32.0); Mean Corpuscular Volume 97.5 fL (81-99); Monocyte# 0.78 X10^3/uL; NRBC Flagged by Analyzer 0 % (0-5); Neutrophil # 7.68 X10^3/uL (2.7-7.7); Neutrophil % 78.9 % (47-70); POSITIVE MORPHOLOGY YES; Platelet Count 322 K/mm3 (150-450); RBC Distribution Width CV 19.7 % (11.6-14.6); RBC Distribution Width SD 69.5 fl (35.1-43.9); Red Blood Count 2.84 M/mm3 (4.2-5.4); White Blood Count 9.7 K/mm3 (4.4-11.0)
[2023-06-01 09:19] LABS: International Normalized Ratio 1.3; Prothrombin Time (Protime)PT. 16.4 SECONDS (11.7-14.9)
[2023-06-01 09:28] LABS: Differential Indicated SCAN CRITERIA MET
[2023-06-01 09:32] LABS: Vitamin B12 368 pg/mL (211-911); Vitamin D,25 Hydroxy 52.9 ng/mL
[2023-06-01 09:52] LABS: Anisocytosis 1+
[2023-06-01 10:03] LABS: Anion Gap 4 (5-15); BUN 22 mg/dL (7-18); BUN/Creat Ratio 33.2 RATIO (10-20); Calcium,Total 8.4 mg/dL (8.5-10.1); Chloride 113 mmol/L (98-107); Creatinine, Serum 0.66 mg/dL (0.55-1.02); EST Glomerular Filtration Rate 91 mL/min (>60); Est Glom Filt Rate - Afr Amer 110 mL/min (>60); Glucose 94 mg/dL (74-106); Magnesium 2.4 mg/dL (1.6-2.6); Potassium 3.8 mmol/L (3.5-5.1); Sodium Level 144 mmol/L (136-145); Thyroid Stim Hormone (TSH) 4.44 uIU/mL (0.358-3.74)
== END ==
LOC: OLS.SW 04:00
PROVIDERS: PCP Family Medicine Geriatric Medicine; Referring Provider Internal Medicine; Visit Provider Internal Medicine
DX: Z02.2 Encounter for examination for admission to residential institution (principal); Z79.01 Long term (current) use of 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s; E55.9 Vitamin D deficiency, unspecified; I10 Essential (primary) hypertension; I48.0 Paroxysmal atrial fibrillation
CPT/HCPCS: 36415; 80048; 82306; 82607; 83735; 84443; 85025; 85610

== ENCOUNTER → 2023-06-08 | Outpatient (REF) | payer MEDICARE, OTHER, SELFPAY ==
--- OUTSIDE RECORDS SUMMARY | 2023-06-08 03:52 | XMS RPT_ITS | CCD ---
Author Name Unknown Address [address] [place] [address] Organization [facility] Care Team Providers Care Public Relations Counselor Name Role Phone Unavailable Unavailable Unavailable MICHELLE, [...] Unavailable Ira, Delfino Chi Primary Care Provider [phone] Ira, Delfino Chi Primary Care Provider [phone] Christina Santizo MD Unavailable Un available Ira, Delfino Chi Primary Care Provider Christina Santizo MD Unavailable Un available Ira, Delfino Chi Primary Care Provider Christina Santizo MD Unavailable Un available IRA, DELFINO CHI Primary Care Unavailable CHRISTINA SANTIZO Referring Unava ilable CHRISTINA SANTIZO Attending Unava ilable Ira, Delfino Chi Primary Care Provider [phone] Christina Santizo MD Unavailable Un available IRA, [...] te Episodic/Chronic Other aftercare (2 sources) Other intermediate frame tender (current) drug therapy; Translations: [Other chcf (current) drug therapy] Onset: 10-16-2022 Episodic Other [...] 167.6 cm Christina Pace MD Work Phone: [facility] 11-11-2022 14:24-0400 Body weight 83.55 kg Christina Pace MD Work Phone: [facility] 11-11-2022 14:24-0400 Diastolic blood pressure 81 mm[Hg] Christina Pace MD Work Phone: [facility] 11-11-2022 14:24-0400 Heart rate 84 /min Christina Pace MD Work Phone: [facility] 11-11-2022 14:24-0400 Systolic blood pressure 143 mm[Hg] Christina Pace MD Work Phone: [facility] 11-05-2021 09:56-0400 Body height 167.6 cm Christina Pace MD Work Phone: [facility] 11-05-2021 09:56-0400 Body weight 82.56 kg Christina Pace MD Work Phone: [facility] 11-05-2021 09:56-0400 Diastolic blood pressure 88 mm[Hg] Christina Pace MD Work Phone: [facility] 11-05-2021 09:56-0400 Heart rate 89 /min Christina Pace MD Work Phone: [facility] 11-05-2021 09:56-0400 Systolic blood pressure 138 mm[Hg] Christina Pace MD Work Phone: [facility] Encounters Encounter Date Encounter Type Care Provider Facility Start: 05-21-2023 End: 05-25-2023 ambulatory [facility] Start: 05-03-2023 Follow-up encounter Christina Pace MD Work Phone: [facility] Start: 05-03-2023 Pacemaker Remote F/U Christina Pace MD Work Phone: [facility] Start: 02-02-2023 Follow-up encounter Christina Pace MD Work Phone: [facility] Start: 02-02-2023 Pacemaker Remote F/U Christina Pace MD Work Phone: [facility] Start: 11-11-2022 End: 11-12-2022 ambulatory [facility] Facility:[facility] Start: 11-11-2022 End: 11-11-2022 Patient encounter procedure [...] DTaP,Tdap,Td Vaccine (2 - Td or Tdap) [facility] Start: 10-16-2025 Diabetes Screening Diabetes Screening [facility] Start: 06-07-2024 DIABETES SCREEN DIABETES SCREEN [facility] Start: 06-07-2024 Diabetes Screening Diabetes Screening [facility] Start: 01-23-[address] [facility] Start: 05-25-2022 ADVANCE DIRECTIVE DISCUSSION ADVANCE DIRECTIVE DISCUSSION [facility] Start: 05-25-2022 DEPRESSION ASSESSMENT DEPRESSION ASSESSMENT [facility] Start: 01-23-[address] [facility] Start: 05-25-2021 ADVANCE DIRECTIVE DISCUSSION ADVANCE DIRECTIVE DISCUSSION [facility] Start: 05-25-2021 DEPRESSION ASSESSMENT DEPRESSION ASSESSMENT [facility] Start: 01-24-2020 Influenza vaccination given Sequential Influenza Vaccine (Season Ended) [facility] Start: 11-22-2019 End: 11-22-2019 Appointment 11/22/2019 Appointment Radiology Jose Alejandro Brooke MD [address] [place] [address] [phone] [facility] Start: 01-06-2014 Adult depression screening assessment DEPRESSION SCREENING [facility] Start: 2007 BONE DENSITY BONE DENSITY [facility] Start: 2007 Bone Density Screening Bone Density Screening [facility] Start: 2007 Pneumococcal vaccination Pneumococcal Vaccine Age 65+ (1 of 2 - PCV13) [facility] Start: 2007 Pneumococcal Vaccine: 65+ (1 - PCV) Pneumococcal Vaccine: 65+ (1 - PCV) [facility] Start: 2007 PNEUMOCOCCAL: 65+ (1 - PCV) PNEUMOCOCCAL: 65+ (1 - PCV) [facility] Start: 2007 PNEUMOVAX AGE 65 AND OVER WITH 5YR LOOKBACK (#1) PNEUMOVAX AGE 65 AND OVER WITH 5YR LOOKBACK (#1) [facility] Start: 2007 Screening for osteoporosis Bone Density Screening [facility] Start: 2002 RSV Vaccine (1 - 1-dose 60+ series) RSV Vaccine (1 - 1-dose 60+ series) [facility] Start: 1992 Administration of herpes zoster vaccine Zoster Vaccines (1 of 2) [facility] Start: 1992 SHINGRIX VACCINE (1 of 2) SHINGRIX VACCINE (1 of 2) [facility] Start: [address] [facility] Start: 1960 ANNUAL PCP TEAM CHRONIC DISEASE VISIT ANNUAL PCP TEAM CHRONIC DISEASE VISIT [facility] Start: 1960 BP CONTROLLED (<130/80) BP CONTROLLED (<130/80) [facility] Start: 1947 COVID-19 VACCINE (#1) COVID-19 VACCINE (#1) [facility] Start: 1947 COVID-19 VACCINE (1) COVID-19 VACCINE (1) [facility] Start: 1945 History and physical examination, annual for health maintenance Wellness Visit [facility] Start: 1942 COVID-19 VACCINE (#1) COVID-19 VACCINE (#1) [facility] Start: 1942 Fall risk assessment Falls Risk Assessment [facility] Start: 1942 Screening for osteoporosis Dexa Scan [facility] Start: 1942 Screening mammography Mammogram [facility] Start: 1942 Tetanus vaccination Tetanus: Every 10yrs [facility] ECG COMPLETE ECG COMPLETE ECG Routine Longstanding persistent atrial fibrillation (HCC) Pacemaker Ordered: 11/11/2022 [facility] Work Phone: Payers Date Payer Category Payer Unknown [id number] 2007 Unknown HOSPITAL/MEDICAL GENERIC MEDICAL GENERIC [id number] 2007-Present [phone] [address] [place] [address] Indemnity [id number] 2007 Unknown HOSPITAL/MEDICAL GENERIC MEDICAL GENERIC [id number] 2007-Present [phone] [address] [place] [address] Indemnity [id number] 2007 Medicare [id number] 2007 Medicare MEDICARE MEDICAR E PART A & B xxxxxxxxxxx 2007-Present [place] xxxxxxxxxxx [id number] 2007 Medicare MEDICARE MEDICAR E A AND B [id number] 2007-Present [phone] [place] [address] Medicare [id number] 2007 Medicare MEDICARE MEDICAR E A AND B [id number] 2007-Present [phone] [place] [address] Medicare [id number] 1942 Unknown [id number] 1942 Unknown [id number] 1942 Unknown [id number] Medicare [id number] Unknown COMMERCIAL COMME RCIAL MISCELLANEOUS xxxxxxx Effective for all dates xxxxxxx [id number] Social History Date Type Detail Facility Tobacco smoking stat [facility] Unknown if ever smoked [facility] Start: 1942 Sex Assigned At Not on file [facility] Start: 11-21-2019 Tobacco smoking stat [facility] Unknown if ever smoked [facility] Start: 11-17-2016 [facility] Start: 11-17-2016 Tobacco use and exposure Smoke less tobacco non-user [facility] Start: 11-13-2020 End: 11-11-2022 Alcohol intake Current non-drinker of alcohol (finding) [facility] Start: 11-17-2016 [facility] of tobacco use Current smoker [facility] Start: 12-27-2018 End: 11-11-2022 History of Social function [facility] Start: 12-27-2018 End: 11-11-[address] [facility] PHQ2 Score 0 [facility] Clinical Notes 09-24-2020 to 11-11-2022 Christina Pace MD - 11/11/2022 2:30 PM EDTChjenny Pace MD - 11/05/2021 10:30 AM EDTTelephone Encounter - [facility] - 08/30/2021 2:18 PM EDT Note Date & Type Note Facility 11-11-2022 History and physi mari note Images from the original note were not included. [facility] [place] Alex Marinelli Department of Cardiovascular Medicine SECTION OF CARDIAC PACING and ELECTROPHYSIOLOGY OUTPATIENT VISIT DATE November 11, 2022 OUTPATIENT VISIT TYPE ESTABLISHED PRIMARY CARE PHYSICIAN: Delfino Brandt MD [address] [address] REFERRING PHYSICIAN: Christina Pace [address] [facility] [address] CHIEF COMPLAINT: Permanent atrial fibrillation, complete heart [...] coinciding. Christina Pace MD Electrophysiology staff pager [phone] November 11, 2022 3:17 PM documented in this encounter [facility] 11-05-2021 History and physi mari note Images from the original note were not included. [facility] [place] Alex Marinelli Department of Cardiovascular Medicine SECTION OF CARDIAC PACING and ELECTROPHYSIOLOGY OUTPATIENT VISIT DATE November 05, 2021 OUTPATIENT VISIT TYPE ESTABLISHED PRIMARY CARE PHYSICIAN: Delfino Brandt MD [address] [address] REFERRING PHYSICIAN: Phyllis Currie [address] [address] [facility] [address] CHIEF COMPLAINT: Permanent atrial fibrillation, pacemaker, AV [...] coinciding. Christina Pace MD Electrophysiology staff pager [phone] November 05, 2021 10:40 AM documented in this encounter [facility] 08-30-2021 Miscellaneous Notes Study explained/reviewed with patient. Study related follow-up requirements were discussed. Risks, benefits, alternatives, personnel, and costs of the study explained/reviewed. Patient provided informed consent for review by email. Study related questions were addressed. Provided patient with contact information to call. [facility] documented in this encounter [facility] 09-27-2020 Note HNO ID: [id number] Author: Carrie Garay (Director Of Strategic Initiatives) Service: Pharmacy Author Type: ? Type: Plan [...] or your Primary Care Provider. Carrie Garay ([employer]) PAGER: [phone] September 27, 2020 4:12 PM [facility] 09-27-2020 Note HNO ID: [id number] Author: Carrie Garay ([employer]) Service: Pharmacy Author Type: ? Type: Plan of Care Filed: 09/27/2020 1:46 PM Note Text: Pharmacy Discharge Medication Service: This patient has elected to receive their discharge prescriptions through the [facility] Bedside Prescription Delivery program. The prescriptions are currently being processed. A follow-up note will be entered once the prescriptions have been filled and delivered to the patient. Please contact me with any questions or updates to the patient's discharge medications. Carrie Garay ([employer]) DCT Contact Info: [phone] [facility] 09-27-2020 Note HNO ID: [id number] Author: Carrie Garay ([employer]) Service: Pharmacy Author Type: ? 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 Patient to use [facility] Bedside Delivery - YES Insurance Information as follows: 2. Insurance card on file - YES 3. Credit card for payment - N/A [facility] 09-27-2020 Note HNO ID: [id number] Author: Katja GEORGE Service: Care Management Author Type: ? Type: Care Mgt Progress Note Filed: 09/27/2020 11:15 AM Note Text: CARE MANAGEMENT PROGRESS NOTE SERVICE DATE: 09/27/2020 SERVICE TIME: 1114 LOS: 1 day IMM Follow Up Copy Given: Yes Copy given to:: Patient Method: By Phone SIGNATURE: Katja Charla ADM PATIENT NAME: Callie Nguyen DATE: September 27, 2020 TIME: 11:15 AM PAGER/CONTACT #: [phone] [facility] 09-26-2020 Note HNO ID: [id number] Author: Phyllis Currie APRN.CNP Service: Electrophysiology Author Type: Nurse Practitioner Type: Progress Notes Filed: 09/26/2020 10:51 AM Note Text: [facility] PROGRESS NOTE Callie Nguyen [id number] PRIMARY SERVICE: Cardiology: Electrophysiology SUBJECTIVE: INTERVAL HISTORY: [...] reviewed with Dr. Izaguirre SIGNATURE: Phyllis Currie APRN.[employer] PAGER: [phone] DATE of SERVICE: 09/26/2020 TIME of SERVICE: 10:24 AM For communication after 5 pm on weekdays and on weekends, please page the following: - [facility] General Cardiology Consult pager [phone] - [facility] Electrophysiology Consult pager [phone] - [facility] Cardiology Consult Pager [phone] [facility] 09-25-2020 Note HNO ID: [id number] Author: Phyllis Currie APRN.[employer] Service: Electrophysiology Author Type: Nurse Practitioner Type: Progress Notes Filed: 09/25/2020 12:05 PM Note Text: [facility] PROGRESS NOTE Callie Mota Conor [id number] PRIMARY SERVICE: Cardiology: Electrophysiology SUBJECTIVE: INTERVAL HISTORY: [...] Izaguirre covering EP service SIGNATURE: Phyllis Currie APRN.[employer] PAGER: [phone] DATE of SERVICE: 09/25/2020 TIME of SERVICE: 10:11 AM For communication after 5 pm on weekdays and on weekends, please page the following: - [facility] General Cardiology Consult pager [phone] - [facility] Electrophysiology Consult pager [phone] - [facility] Cardiology Consult Pager [phone] [facility] 09-24-2020 Note HNO ID: [id number] Author: Christina Pace MD Service: Electrophysiology Author Type: Physician Type: Progress Notes Filed: 09/24/2020 6:06 PM Note Text: EP staff Per patient's mac developer Dr. Brooke [phone] option #3 or option #1 Administer hydrocortisone 50 mg IV x1 preop (done) then every 8 hours postop (ordered) for first 24 hours; discharged with hydrocortisone 25 mg every 8 hours x2 days. Christina Pace MD Electrophysiology staff pager [phone] September 24, 2020 6:06 PM [facility] Diagnosis Longstanding persistent atrial fibrillation (HCC)- Primary Pacemaker Cardiac pacemaker in situ Primary hypertension Unspecified essential hypertension [facility]ative[facility] Outpatient Procedure (Routine) - Pending Review Specialty Diagnoses / Procedures Referred By Catia perez Referred To Contact [facility] [place] Diagnoses Longstanding persistent atrial fibrillation (HCC) Pacemaker Procedures ECG COMPLETE ECG ROUTINE ECG W/LEAST 12 LDS W/I&[place] [address] [place] [address] [facility] [address] [address] Referral ID Status Reason Start Date Expiration Date Visits Requested Visits Authorized [id number] Pending Review Auto-Generat ed Referral 11/11/2022 11/11/[address] [facility] Summary Purpose Family History No Family History Records FoundNo Family History Records FoundNo Family History Records FoundNo Family History Records FoundNo Family History Records FoundNo Family History Records FoundNo Family History Records FoundNo Family History Records FoundNo Family History Records Found Advance Directives No Advanced Directives Records FoundDocuments on File Type Date Recorded Patient Hand Lacer Expl anation Advance Directives and Livin g Will 11/17/2019 12:58 PM Documents on File Type Date Recorded Patient Hand Lacer Expl anation Advance Directive(s) 10/12/2020 12:08 PM Advance Directive(s) 09/03/2020 10:06 AM Advance Directive(s) 12/27/2018 7:14 AM Advance Directive(s) 12/24/2018 9:14 AM Advance Directive(s) 12/15/2018 6:08 AM Advance Directive(s) 12/12/2016 9:55 AM Documents on File Type Date Recorded Patient Hand Lacer Expl anation Advance Directive(s) 12/12/2016 9:55 AM Documents on File Type Date Recorded Patient Hand Lacer Expl anation Advance Directive(s) 12/12/2016 9:55 AM Reason for Referral Status Reason Specialty Diagnoses / Procedures Referred By Contact Referred To Contact New Request Radiology Diagnoses Basedow's disease Procedures NM Thyroid Uptake And Scan Jose Alejandro Brooke MD [address] [place] [address] 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 DATE CREATED AUTHOR AUTHOR'S ORGANIZ ATION 11/18/2017 [facility] DATE CREATED AUTHOR AUTHOR'S ORGANIZ ATION 05/03/2018 [facility] DATE CREATED AUTHOR AUTHOR'S ORGANIZ ATION 05/03/2018 [facility] DATE CREATED AUTHOR AUTHOR'S ORGANIZ ATION 10/25/2020 [facility] DATE CREATED AUTHOR AUTHOR'S ORGANIZ ATION 06/10/2021 [facility] DATE CREATED AUTHOR AUTHOR'S ORGANIZ ATION 11/24/2022 [facility] DATE CREATED AUTHOR AUTHOR'S ORGANIZ ATION 05/25/2023 [facility] Reason for Visit (unrecogniz ed section [...] or prosecute any alcohol or drug abuse patient.[facility] the event this information is protected by the Federal Confidentiality of Alcohol and Drug Abuse Patient Records regulations: The Federal rules restrict any use of the information to criminally investigate or prosecute any alcohol or drug abuse patient.[facility] the event this information is protected by the Federal Confidentiality of Alcohol and Drug Abuse Patient Records regulations: The Federal rules restrict any use of the information to criminally investigate or prosecute any alcohol or drug abuse patient.[facility] the event this information is protected by the Federal Confidentiality of Alcohol and Drug Abuse Patient Records regulations: The Federal rules restrict any use of the information to criminally investigate or prosecute any alcohol or drug abuse patient.[facility] the event this information is protected by the Federal Confidentiality of Alcohol and Drug Abuse Patient Records regulations: The Federal rules restrict any use of the information to criminally investigate or prosecute any alcohol or drug abuse patient.[facility] the event this information is protected by the Federal Confidentiality of Alcohol and Drug Abuse Patient Records regulations: The Federal rules restrict any use of the information to criminally investigate or prosecute any alcohol or drug abuse patient.[facility] the event this information is protected by the Federal Confidentiality of Alcohol and Drug Abuse Patient Records regulations: The Federal rules restrict any use of the information to criminally investigate or prosecute any alcohol or drug abuse patient.[facility] the event this information is protected by the Federal Confidentiality of Alcohol and Drug Abuse Patient Records regulations: The Federal rules restrict any use of the information to criminally investigate or prosecute any alcohol or drug abuse patient.[facility] the event this information is protected by the Federal Confidentiality of Alcohol and Drug Abuse Patient Records regulations: The Federal rules restrict any use of the information to criminally investigate or prosecute any alcohol or drug abuse patient.[facility] the event this information is protected by the Federal Confidentiality of Alcohol and Drug Abuse Patient Records regulations: The Federal rules restrict any use of the information to criminally investigate or prosecute any alcohol or drug abuse patient.[facility] Care Teams (unrecognized sec tion and content) Public Relations Counselor Relationship Specialty Start Date End Date Delfino Brandt Chi [address] [address] PCP - General 08/15/12 Christina Santizo MD [address] [place] [address] Primary Staff Physician Cardiology 08/10/18 Public Relations Counselor Relationship Specialty Start Date End Date Delfino Brandt Chi [address] [address] PCP - General 08/15/12 Christina Snatizo MD [address] [place] [address] Primary Staff Physician Cardiology 08/10/18 Public Relations Counselor Relationship Specialty Start Date End Date Delfino Brandt Chi [address] [place] [address] PCP - General 08/15/12 Christina Santizo MD [address] [place] [address] Primary Staff Physician Cardiology 08/10/18 Public Relations Counselor Relationship Specialty Start Date End Date Delfino Brandt Chi [address] [facility] [address] [place] [address] PCP - General 08/15/12 Christina Santizo MD [address] [place] [place] [id number] Primary Staff Physician Cardiology 08/10/18 Public Relations Counselor Relationship Specialty Start Date End Date [facility] Brandt [facility] [address] [facility] [address] [place] [address] PCP - General 08/15/12 Christina Santizo MD [address] [place] [address] Primary Staff Physician Cardiology 08/10/18 Public Relations Counselor Relationship Specialty Start Date End Date Delfino Brandt Chi [address] [facility] [address] [place] [address] PCP - General 08/15/12 Christina Santizo MD [address] [place] [id number] Primary Staff Physician Cardiology 08/10/18 FOR RECORDS [...] BE BASED ON THE PRIMARY CLINICAL RECORDS. [facility] [employer] [facility]. provides no warranty or guarantee of the accuracy or completeness of information in this document.
[2023-06-08 08:33] LABS: Absolute Lymphocyte Count 0.93 X10^3/uL (0.83-4.51); Absolute Neutrophil Count 11.5 X10^3/uL (2.0-7.7); Basophil# 0.07 X10^3/uL; Basophil% 0.5 % (0-1); Eosinophil# 0.29 X10^3/uL; Eosinophils% 2.1 % (0-5); Hematocrit 30.3 % (37-47); Hemoglobin 9.2 g/dL (12.0-15.0); Lymphocyte # 0.93 X10^3/ul (0.83-4.51); Lymphocyte % 6.8 % (19-41); Mean Corp Hgb Conc 30.4 g/dL (32-36); Mean Corpuscular Hgb 28.2 pg (27.0-32.0); Mean Corpuscular Volume 92.9 fL (81-99); Monocyte# 0.61 X10^3/uL; Monocyte% 4.5 % (0-10); NRBC Flagged by Analyzer 0 % (0-5); Neutrophil # 11.48 X10^3/uL (2.7-7.7); Neutrophil % 84.6 % (47-70); Platelet Count 424 K/mm3 (150-450); RBC Distribution Width CV 18.4 % (11.6-14.6); RBC Distribution Width SD 61.7 fl (35.1-43.9); Red Blood Count 3.26 M/mm3 (4.2-5.4); White Blood Count 13.6 K/mm3 (4.4-11.0)
[2023-06-08 08:44] LABS: International Normalized Ratio 1.3; Prothrombin Time (Protime)PT. 15.7 SECONDS (11.7-14.9)
[2023-06-08 10:01] LABS: Anion Gap 7 (5-15); BUN 25 mg/dL (7-18); BUN/Creat Ratio 37.3 RATIO (10-20); Calcium,Total 8.7 mg/dL (8.5-10.1); Chloride 111 mmol/L (98-107); Creatinine, Serum 0.67 mg/dL (0.55-1.02); EST Glomerular Filtration Rate 90 mL/min (>60); Est Glom Filt Rate - Afr Amer 109 mL/min (>60); Glucose 84 mg/dL (74-106); Magnesium 2.2 mg/dL (1.6-2.6); Potassium 3.7 mmol/L (3.5-5.1); Sodium Level 143 mmol/L (136-145)
== END ==
LOC: OLS.SW 05:00
PROVIDERS: PCP Family Medicine Geriatric Medicine; Visit Provider Internal Medicine
DX: I10 Essential (primary) hypertension (principal); E03.9 Hypothyroidism, unspecified; S81.812D Laceration without foreign body, left lower leg, subsequent encounter; I48.0 Paroxysmal atrial fibrillation
CPT/HCPCS: 36415; 80048; 83735; 85025; 85610

== ENCOUNTER → 2023-06-15 | Outpatient (REF) | payer MEDICARE, OTHER, SELFPAY ==
--- OUTSIDE RECORDS SUMMARY | 2023-06-15 03:57 | XMS RPT_ITS | CCD ---
Author Name Unknown Address [address] [place] [address] Organization [facility] Care Team Providers Care Radio Interference Investigator Name Role Phone Unavailable Unavailable Unavailable MICHELLE, [...] Unavailable Ira, Delfino Chi Primary Care Provider [phone] Ira, Delfino Chi Primary Care Provider [phone] Christina Santizo MD Unavailable Un available Ira, Delfino Chi Primary Care Provider [phone] Christina Santizo MD Unavailable Un available Ira, Delfino Chi Primary Care Provider Christina Santizo MD Unavailable Un available IAR, DELFINO CHI Primary Care Unavailable CHRISTINA SANTIZO Referring Unava ilable CHRISTINA SANTIZO Attending Unava ilable Ira, Delfino Chi Primary Care Provider Christina [...] te Episodic/Chronic Other aftercare (2 sources) Other [place] (current) drug therapy; Translations: [Other [place] [facility] ([facility] drug therapy] Onset: 10-16-2022 Episodic Other [...] 167.6 cm Christina Pace MD Work Phone: [facility] 11-11-2022 14:24-0400 Body weight 83.55 kg Christina Pace MD Work Phone: [facility] 11-11-2022 14:24-0400 Diastolic blood pressure 81 mm[Hg] Christina Pace MD Work Phone: [facility] 11-11-2022 14:24-0400 Heart rate 84 /min Christina Pace MD Work Phone: [facility] 11-11-2022 14:24-0400 Systolic blood pressure 143 mm[Hg] Christina Pace MD Work Phone: [facility] 11-05-2021 09:56-0400 Body height 167.6 cm Christina Pace MD Work Phone: [facility] 11-05-2021 09:56-0400 Body weight 82.56 kg Christina Pace MD Work Phone: [facility] 11-05-2021 09:56-0400 Diastolic blood pressure 88 mm[Hg] Christina Pace MD Work Phone: [facility] 11-05-2021 09:56-0400 Heart rate 89 /min Christina Pace MD Work Phone: [facility] 11-05-2021 09:56-0400 Systolic blood pressure 138 mm[Hg] Christina Pace MD Work Phone: [facility] Encounters Encounter Date Encounter Type Care Provider Facility Start: 05-21-2023 End: 05-25-2023 ambulatory [facility] Start: 05-03-2023 Follow-up encounter Christina Pace MD Work Phone: [facility] Start: 05-03-2023 Pacemaker Remote F/U Christina Pace MD Work Phone: [facility] Department Start: 02-02-2023 Follow-up encounter Christina Pace MD Work Phone: [facility] Start: 02-02-2023 Pacemaker Remote F/U Chrsitina Pace MD Work Phone: [facility] Start: 11-11-2022 End: 11-12-2022 ambulatory [facility] Facility:[facility] Start: 11-11-2022 End: 11-11-2022 Patient [...] DTaP,Tdap,Td Vaccine (2 - Td or Tdap) [facility] Start: 10-16-2025 Diabetes Screening Diabetes Screening [facility] Start: 06-07-2024 DIABETES SCREEN DIABETES SCREEN [facility] Start: 06-07-2024 Diabetes Screening Diabetes Screening [facility] Start: 01-23-2023 Influenza vaccination [facility] Start: 05-25-2022 ADVANCE DIRECTIVE DISCUSSION ADVANCE DIRECTIVE DISCUSSION [facility] Start: 05-25-2022 DEPRESSION ASSESSMENT DEPRESSION ASSESSMENT [facility] Start: 01-23-2022 Influenza vaccination [facility] Start: 05-25-2021 ADVANCE DIRECTIVE DISCUSSION ADVANCE DIRECTIVE DISCUSSION [facility] Start: 05-25-2021 DEPRESSION ASSESSMENT DEPRESSION ASSESSMENT [facility] Start: 01-24-2020 Influenza vaccination given Sequential Influenza Vaccine (Season Ended) [facility] Start: 11-22-2019 End: 11-22-2019 Appointment 11/22/2019 Appointment Radiology Jose Alejandro Brooke MD [address] [place] [address] [phone] [facility] Nuclear Medicine Start: 01-06-2014 Adult depression screening assessment DEPRESSION SCREENING [facility] Start: 2007 BONE DENSITY BONE DENSITY [facility] Start: 2007 Bone Density Screening Bone Density Screening [facility] Start: 2007 Pneumococcal vaccination Pneumococcal Vaccine Age 65+ (1 of 2 - PCV13) [facility] Start: 2007 Pneumococcal Vaccine: 65+ (1 - PCV) Pneumococcal Vaccine: 65+ (1 - PCV) [facility] Start: 2007 PNEUMOCOCCAL: 65+ (1 - PCV) PNEUMOCOCCAL: 65+ (1 - PCV) [facility] Start: 2007 PNEUMOVAX AGE 65 AND OVER WITH 5YR LOOKBACK (#1) PNEUMOVAX AGE 65 AND OVER WITH 5YR LOOKBACK (#1) [facility] Start: 2007 Screening for osteoporosis Bone Density Screening [facility] Start: 2002 RSV Vaccine (1 - 1-dose 60+ series) RSV Vaccine (1 - 1-dose 60+ series) [facility] Start: 1992 Administration of herpes zoster vaccine Zoster Vaccines (1 of 2) [facility] Start: 1992 SHINGRIX VACCINE (1 of 2) SHINGRIX VACCINE (1 of 2) [facility] Start: 1961 Urine microalbumin profile [facility] Start: 1960 ANNUAL PCP TEAM CHRONIC DISEASE VISIT ANNUAL PCP TEAM CHRONIC DISEASE VISIT [facility] Start: 1960 BP CONTROLLED (<130/80) BP CONTROLLED (<130/80) [facility] Start: 1947 COVID-19 VACCINE (#1) COVID-19 VACCINE (#1) [facility] Start: 1947 COVID-19 VACCINE (1) COVID-19 VACCINE (1) [facility] Start: 1945 History and physical examination, annual for health maintenance Wellness Visit [facility] Start: 1942 COVID-19 VACCINE (#1) COVID-19 VACCINE (#1) [facility] Start: 1942 Fall risk assessment Falls Risk Assessment [facility] Start: 1942 Screening for osteoporosis Dexa Scan [facility] Start: 1942 Screening mammography Mammogram [facility] Start: 1942 Tetanus vaccination Tetanus: Every 10yrs [facility] ECG COMPLETE ECG COMPLETE ECG Routine Longstanding persistent atrial fibrillation (HCC) Pacemaker Ordered: 11/11/2022 [facility] Work Phone: Payers Date Payer Category Payer Unknown [id number] 2007 Unknown HOSPITAL/MEDICAL GENERIC MEDICAL GENERIC [id number] 2007-Present [phone] [address] [place] [address] Indemnity [id number] 2007 Unknown HOSPITAL/MEDICAL GENERIC MEDICAL GENERIC [id number] 2007-Present [phone] [address] [place] [address] Indemnity [id number] 2007 Medicare [id number] 2007 Medicare MEDICARE MEDICAR E PART A & B [id number] 2007-Present [place] xxxxxxxxxxx [id number] 2007 Medicare MEDICARE MEDICAR E A AND B [id number] 2007-Present [phone] [place] [address] Medicare [id number] 2007 Medicare MEDICARE MEDICAR E A AND B [id number] 2007-Present [phone] [place] [address] Medicare [id number] 1942 Unknown [id number] 1942 Unknown [id number] 1942 Unknown [id number] Medicare [id number] Unknown COMMERCIAL COMME RCIAL MISCELLANEOUS xxxxxxx Effective for all dates xxxxxxx [id number] Social History Date Type Detail Facility Tobacco smoking stat [facility] Unknown if ever smoked [facility] Start: 1942 Sex Assigned At Not on file [facility] Start: 11-21-2019 Tobacco smoking stat [facility] Unknown if ever smoked [facility] Start: 11-17-2016 [facility] Start: 11-17-2016 Tobacco use and exposure Smoke less tobacco non-user [facility] Start: 11-13-2020 End: 11-11-2022 Alcohol intake Current non-drinker of alcohol (finding) [facility] Start: 11-17-2016 Tobacco [facility] of tobacco use Current smoker [facility] Start: 12-27-2018 End: 11-11-2022 History of Social function [facility] Start: 12-27-2018 End: 11-11-2022 Tobacco use panel [facility] PHQ2 Score 0 [facility] Clinical Notes 09-24-2020 to 11-11-2022 Christina Pcae MD - 11/11/2022 2:30 PM EDTChjenny Pace MD - 11/05/2021 10:30 AM EDTTelephone Encounter - Inga Ham [facility] - 08/30/2021 2:18 PM EDT Note Date & Type Note Facility 11-11-2022 History and physi mari note Images from the original note were not included. [facility] [place] [facility] Department of Cardiovascular Medicine SECTION OF CARDIAC PACING and ELECTROPHYSIOLOGY OUTPATIENT VISIT DATE November 11, 2022 OUTPATIENT VISIT TYPE ESTABLISHED PRIMARY CARE PHYSICIAN: Delfino Brandt MD [address] [address] REFERRING PHYSICIAN: Christina Pace [address] [facility] [address] CHIEF COMPLAINT: Permanent atrial fibrillation, complete heart [...] coinciding. Christina Pace MD Electrophysiology staff pager [phone] November 11, 2022 3:17 PM documented in this encounter [facility] 11-05-2021 History and physi mari note Images from the original note were not included. [facility] [place] [facility] Department of Cardiovascular Medicine SECTION OF CARDIAC PACING and ELECTROPHYSIOLOGY OUTPATIENT VISIT DATE November 05, 2021 OUTPATIENT VISIT TYPE ESTABLISHED PRIMARY CARE PHYSICIAN: Delfino Brandt MD [address] [address] REFERRING PHYSICIAN: Phyllis Currie [address] Martiza Garcia [facility] [address] CHIEF COMPLAINT: Permanent atrial fibrillation, pacemaker, AV [...] coinciding. Christina Pace MD Electrophysiology staff pager [phone] November 05, 2021 10:40 AM documented in this encounter [facility] 08-30-2021 Miscellaneous Notes Study explained/reviewed with patient. Study related follow-up requirements were discussed. Risks, benefits, alternatives, personnel, and costs of the study explained/reviewed. Patient provided informed consent for review by email. Study related questions were addressed. Provided patient with contact information to call. Inga Ham [facility] documented in this encounter [facility] 09-27-2020 Note HNO ID: [id number] Author: Carrie Garay (Mental Health Coordinator) Service: Pharmacy Author Type: ? Type: Plan [...] or your Primary Care Provider. Carrie Garay ([facility]) PAGER: [phone] September 27, 2020 4:12 PM [facility] 09-27-2020 Note HNO ID: [id number] Author: Carrie Garay ([facility]) Service: Pharmacy Author Type: ? Type: Plan of Care Filed: 09/27/2020 1:46 PM Note Text: Pharmacy Discharge Medication Service: This patient has elected to receive their discharge prescriptions through the [facility] Bedside Prescription Delivery program. The prescriptions are currently being processed. A follow-up note will be entered once the prescriptions have been filled and delivered to the patient. Please contact me with any questions or updates to the patient's discharge medications. Carrie Garay ([facility]) DCT Contact Info: [phone] [facility] 09-27-2020 Note HNO ID: [id number] Author: Carrie Garay ([facility]) Service: Pharmacy Author Type: ? 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 Patient to use [facility] Bedside Delivery - YES Insurance Information as follows: 2. Insurance card on file - YES 3. Credit card for payment - N/A [facility] 09-27-2020 Note HNO ID: [id number] Author: Katja GEORGE Service: Care Management Author Type: ? Type: Care Mgt Progress Note Filed: 09/27/2020 11:15 AM Note Text: CARE MANAGEMENT PROGRESS NOTE SERVICE DATE: 09/27/2020 SERVICE TIME: 1114 LOS: 1 day IMM Follow Up Copy Given: Yes Copy given to:: Patient Method: By Phone SIGNATURE: Katja Charla ADM PATIENT NAME: Callie gNuyen DATE: September 27, 2020 TIME: 11:15 AM PAGER/CONTACT #: [phone] [facility] 09-26-2020 Note HNO ID: [id number] Author: Phyllis Currie APRN.CNP Service: Electrophysiology Author Type: Nurse Practitioner Type: Progress Notes Filed: 09/26/2020 10:51 AM Note Text: [facility] PROGRESS NOTE Callie Nguyen [id number] PRIMARY SERVICE: Cardiology: Electrophysiology SUBJECTIVE: INTERVAL HISTORY: [...] reviewed with Dr. Izaguirre SIGNATURE: Phyllis Currie APRN.KENO WRITER PAGER: [phone] DATE of SERVICE: 09/26/2020 TIME of SERVICE: 10:24 AM For communication after 5 pm on weekdays and on weekends, please page the following: - [facility] General Cardiology Consult pager [phone] - [facility] Electrophysiology Consult pager [phone] - [facility] Cardiology Consult Pager [phone] [facility] 09-25-2020 Note HNO ID: [id number] Author: Phyllis Currie APRN.KENO WRITER Service: Electrophysiology Author Type: Nurse Practitioner Type: Progress Notes Filed: 09/25/2020 12:05 PM Note Text: [facility] PROGRESS NOTE Callie Mota Conor [id number] PRIMARY SERVICE: Cardiology: Electrophysiology SUBJECTIVE: INTERVAL HISTORY: [...] Izaguirre covering EP service SIGNATURE: Phyllis Currie APRN.KENO WRITER PAGER: [phone] DATE of SERVICE: 09/25/2020 TIME of SERVICE: 10:11 AM For communication after 5 pm on weekdays and on weekends, please page the following: - [facility] General Cardiology Consult pager [phone] - [facility] Electrophysiology Consult pager [phone] - [facility] Cardiology Consult Pager [phone] [facility] 09-24-2020 Note HNO ID: [id number] Author: Christina Pace MD Service: Electrophysiology Author Type: Physician Type: Progress Notes Filed: 09/24/2020 6:06 PM Note Text: EP staff Per patient's psychiatry resident Dr. Brooke [phone] option #3 or option #1 Administer hydrocortisone 50 mg IV x1 preop (done) then every 8 hours postop (ordered) for first 24 hours; discharged with hydrocortisone 25 mg every 8 hours x2 days. Christina Pace MD Electrophysiology staff pager [phone] September 24, 2020 6:06 PM [facility] documented in this encounter [facility] Diagnosis Longstanding persistent atrial fibrillation (HCC)- Primary Pacemaker Cardiac pacemaker in situ Primary hypertension Unspecified essential hypertension documented in this encounter [facility]ative)* Outpatient Procedure (Routine) - Pending Review Specialty Diagnoses / Procedures Referred By Catia perez Referred To Contact [facility] [place] Diagnoses Longstanding persistent atrial fibrillation (HCC) Pacemaker Procedures ECG COMPLETE ECG ROUTINE ECG W/LEAST 12 LDS W/I&[place] [address] [place] [address] [facility] [address] [address] Referral ID Status Reason Start Date Expiration Date Visits Requested Visits Authorized [id number] Pending Review Auto-Generat ed Referral 11/11/2022 11/11/2023 1 1 [facility] Summary Purpose Family History No Family History Records FoundNo Family History Records FoundNo Family History Records FoundNo Family History Records FoundNo Family History Records FoundNo Family History Records FoundNo Family History Records FoundNo Family History Records FoundNo Family History Records Found Advance Directives No Advanced Directives Records FoundDocuments on File Type Date Recorded Patient Biological 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 Advance Directives and Livin g Will 11/17/2019 12:58 PM Documents on File Type Date Recorded Patient Biological 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 anation Advance Directive(s) 10/12/2020 12:08 PM Advance Directive(s) 09/03/2020 10:06 AM Advance Directive(s) 12/27/2018 7:14 AM Advance Directive(s) 12/24/2018 9:14 AM Advance Directive(s) 12/15/2018 6:08 AM Advance Directive(s) 12/12/2016 9:55 AM Documents on File Type Date Recorded 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 Biological 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 anation Advance Directive(s) 12/12/2016 9:55 AM Documents on File Type Date Recorded Patient Biological 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 anation Advance Directive(s) 12/12/2016 9:55 AM Reason for Referral Status Reason Specialty Diagnoses / Procedures Referred By Contact Referred To Contact New Request Radiology Diagnoses Basedow's disease Procedures NM Thyroid Uptake And Scan Jose Alejandro Brooke MD [address] [place] [address] 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 Additional Source Comments INFORMATION SOURCE (unrecogn ized section and content) DATE CREATED AUTHOR AUTHOR'S ORGANIZ ATION 11/12/2017 [facility] DATE CREATED AUTHOR AUTHOR'S ORGANIZ ATION 11/18/2017 [facility] DATE CREATED AUTHOR AUTHOR'S ORGANIZ ATION 05/03/2018 [facility] DATE CREATED AUTHOR AUTHOR'S ORGANIZ ATION 05/03/2018 [facility] DATE CREATED AUTHOR AUTHOR'S ORGANIZ ATION 10/25/2020 [facility] DATE CREATED AUTHOR AUTHOR'S ORGANIZ ATION 06/10/2021 [facility] DATE CREATED AUTHOR AUTHOR'S ORGANIZ ATION 11/24/2022 [facility] DATE CREATED AUTHOR AUTHOR'S ORGANIZ ATION 05/25/2023 [facility] Reason for Visit (unrecogniz ed section and [...] or prosecute any alcohol or drug abuse patient.[facility] the event this information is protected by the Federal Confidentiality of Alcohol and Drug Abuse Patient Records regulations: The Federal rules restrict any use of the information to criminally investigate or prosecute any alcohol or drug abuse patient.[facility] Hospital[facility] the event this information is protected by the Federal Confidentiality of Alcohol and Drug Abuse Patient Records regulations: The Federal rules restrict any use of the information to criminally investigate or prosecute any alcohol or drug abuse patient.[facility] the event this information is protected by the Federal Confidentiality of Alcohol and Drug Abuse Patient Records regulations: The Federal rules restrict any use of the information to criminally investigate or prosecute any alcohol or drug abuse patient.[facility] Hospital[facility] the event this information is protected by the Federal Confidentiality of Alcohol and Drug Abuse Patient Records regulations: The Federal rules restrict any use of the information to criminally investigate or prosecute any alcohol or drug abuse patient.[facility] the event this information is protected by the Federal Confidentiality of Alcohol and Drug Abuse Patient Records regulations: The Federal rules restrict any use of the information to criminally investigate or prosecute any alcohol or drug abuse patient.[facility] Hospital[facility] the event this information is protected by the Federal Confidentiality of Alcohol and Drug Abuse Patient Records regulations: The Federal rules restrict any use of the information to criminally investigate or prosecute any alcohol or drug abuse patient.[facility] Hospital[facility] the event this information is protected by the Federal Confidentiality of Alcohol and Drug Abuse Patient Records regulations: The Federal rules restrict any use of the information to criminally investigate or prosecute any alcohol or drug abuse patient.[facility] Hospital[facility] the event this information is protected by the Federal Confidentiality of Alcohol and Drug Abuse Patient Records regulations: The Federal rules restrict any use of the information to criminally investigate or prosecute any alcohol or drug abuse patient.[facility] Hospital[facility] the event this information is protected by the Federal Confidentiality of Alcohol and Drug Abuse Patient Records regulations: The Federal rules restrict any use of the information to criminally investigate or prosecute any alcohol or drug abuse patient.[facility] Care Teams (unrecognized sec tion and content) Radio Interference Investigator Relationship Specialty Start Date End Date Delfino Brandt Chi [address] [address] PCP - General 08/15/12 Christina Santizo MD [address] [place] [address] Primary Staff Physician Cardiology 08/10/18 Radio Interference Investigator Relationship Specialty Start Date End Date Delfino Brandt Chi [address] [address] PCP - General 08/15/12 Christina Santizo MD [address] [place] [address] Primary Staff Physician Cardiology 08/10/18 Radio Interference Investigator Relationship Specialty Start Date End Date Delfino Brandt Chi [address] [place] [address] PCP - General 08/15/12 Christina Santizo MD [address] [place] [address] Primary Staff Physician Cardiology 08/10/18 Radio Interference Investigator Relationship Specialty Start Date End Date Delfino Brandt Chi [address] [facility] [address] [place] [address] PCP - General 08/15/12 Christina Santizo MD [address] [place] [id number] Primary Staff Physician Cardiology 08/10/18 Radio Interference Investigator Relationship Specialty Start Date End Date [facility]elfino Brandt Chi [address] [facility] [address] [place] [address] PCP - General 08/15/12 Christina Santizo MD [address] [place] [address] Primary Staff Physician Cardiology 08/10/18 Radio Interference Investigator Relationship Specialty Start Date End Date Delfino Brandt Chi [address] [facility] [address] [place] [address] PCP - General 08/15/12 Christina Santizo MD [address] [place] [id number] Primary Staff Physician Cardiology 08/10/18 FOR RECORDS [...] BE BASED ON THE PRIMARY CLINICAL RECORDS. [facility]. provides no warranty or guarantee of the accuracy or completeness of information in this document.
[2023-06-15 09:00] LABS: Absolute Lymphocyte Count 0.85 X10^3/uL (0.83-4.51); Absolute Neutrophil Count 11.7 X10^3/uL (2.0-7.7); Basophil# 0.03 X10^3/uL; Basophil% 0.2 % (0-1); Eosinophil# 0.35 X10^3/uL; Eosinophils% 2.6 % (0-5); Hematocrit 29.9 % (37-47); Hemoglobin 9.2 g/dL (12.0-15.0); Lymphocyte # 0.85 X10^3/ul (0.83-4.51); Lymphocyte % 6.2 % (19-41); Mean Corp Hgb Conc 30.8 g/dL (32-36); Mean Corpuscular Hgb 27.9 pg (27.0-32.0); Mean Corpuscular Volume 90.6 fL (81-99); Mean Platelet Vol. 9.9 fl (6.2-12.0); Monocyte# 0.66 X10^3/uL; Monocyte% 4.8 % (0-10); NRBC Flagged by Analyzer 0 % (0-5); Neutrophil # 11.66 X10^3/uL (2.7-7.7); Neutrophil % 85.5 % (47-70); Platelet Count 331 K/mm3 (150-450); RBC Distribution Width CV 18.1 % (11.6-14.6); RBC Distribution Width SD 59.7 fl (35.1-43.9); White Blood Count 13.6 K/mm3 (4.4-11.0)
[2023-06-15 09:11] LABS: International Normalized Ratio 1.3; Prothrombin Time (Protime)PT. 15.9 SECONDS (11.7-14.9)
[2023-06-15 10:11] LABS: Anion Gap 5 (5-15); BUN 23 mg/dL (7-18); BUN/Creat Ratio 35.8 RATIO (10-20); Calcium,Total 8.6 mg/dL (8.5-10.1); Chloride 111 mmol/L (98-107); Creatinine, Serum 0.64 mg/dL (0.55-1.02); EST Glomerular Filtration Rate 94 mL/min (>60); Est Glom Filt Rate - Afr Amer 114 mL/min (>60); Glucose 102 mg/dL (74-106); Magnesium 2.4 mg/dL (1.6-2.6); Potassium 3.6 mmol/L (3.5-5.1); Sodium Level 141 mmol/L (136-145)
== END ==
LOC: OLS.SW 04:00
PROVIDERS: PCP Family Medicine Geriatric Medicine; Referring Provider Internal Medicine; Visit Provider Internal Medicine
DX: E03.9 Hypothyroidism, unspecified (principal); I48.0 Paroxysmal atrial fibrillation; Z79.01 Long term (current) use of 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s
CPT/HCPCS: 36415; 80048; 83735; 85025; 85610

== ENCOUNTER → 2023-06-16 | Outpatient (REF) | payer MEDICARE, OTHER, SELFPAY ==
--- OUTSIDE RECORDS SUMMARY | 2023-06-16 05:01 | XMS RPT_ITS | CCD ---
Author Name Unknown Address [address] [place] [address] [facility] Care Team Providers Care Pig Machine Operator Name Role Phone Unavailable Unavailable Unavailable MICHELLE, [...] Unavailable Ira, Delfino Chi Primary Care Provider [phone] Ira, Delfino Chi Primary Care Provider [phone] Christina Santizo MD Unavailable Un available Ira, [...] te Episodic/Chronic Other aftercare (2 sources) Other long term care administrator (current) drug therapy; Translations: [Other assisted (current) drug therapy] Onset: 10-16-2022 Episodic Other [...] 167.6 cm Christina Pace MD Work Phone: [facility] 11-11-2022 14:24-0400 Body weight 83.55 kg Christina Pace MD Work Phone: [facility] 11-11-2022 14:24-0400 Diastolic blood pressure 81 mm[Hg] Christina Pace MD Work Phone: [facility] 11-11-2022 14:24-0400 Heart rate 84 /min Christina Pace MD Work Phone: [facility] 11-11-2022 14:24-0400 Systolic blood pressure 143 mm[Hg] Christina Pace MD Work Phone: [facility] 11-05-2021 09:56-0400 Body height 167.6 cm Christina Pace MD Work Phone: [facility] 11-05-2021 09:56-0400 Body weight 82.56 kg Christina Pace MD Work Phone: [facility] 11-05-2021 09:56-0400 Diastolic blood pressure 88 mm[Hg] Christina Pace MD Work Phone: [facility] 11-05-2021 09:56-0400 Heart rate 89 /min Christina Pace MD Work Phone: [facility] 11-05-2021 09:56-0400 Systolic blood pressure 138 mm[Hg] Christina Pace MD Work Phone: [facility] Encounters Encounter Date Encounter Type Care Provider Facility Start: 05-21-2023 End: 05-25-2023 ambulatory [facility] Start: 05-03-2023 Follow-up encounter Christina Pace MD Work Phone: [facility] Start: 05-03-2023 Pacemaker Remote F/U Christina Pace MD Work Phone: [facility] Department Start: 02-02-2023 Follow-up encounter Christina Pace MD Work Phone: [facility] Start: 02-02-2023 Pacemaker Remote F/U Christina Pace MD Work Phone: [facility] Department Start: 11-11-2022 End: 11-12-2022 ambulatory [facility] Facility:[facility] Start: 11-11-2022 End: 11-11-2022 Patient [...] DTaP,Tdap,Td Vaccine (2 - Td or Tdap) [facility] Start: 10-16-2025 Diabetes Screening Diabetes Screening [facility] Start: 06-07-2024 DIABETES SCREEN DIABETES SCREEN [facility] Start: 06-07-2024 Diabetes Screening Diabetes Screening [facility] Start: 01-23-2023 Influenza vaccination [facility] Start: 05-25-2022 ADVANCE DIRECTIVE DISCUSSION ADVANCE DIRECTIVE DISCUSSION [facility] Start: 05-25-2022 DEPRESSION ASSESSMENT DEPRESSION ASSESSMENT [facility] Start: 01-23-2022 Influenza vaccination [facility] Start: 05-25-2021 ADVANCE DIRECTIVE DISCUSSION ADVANCE DIRECTIVE DISCUSSION [facility] Start: 05-25-2021 DEPRESSION ASSESSMENT DEPRESSION ASSESSMENT [facility] Start: 01-24-2020 Influenza vaccination given Sequential Influenza Vaccine (Season Ended) [facility] Start: 11-22-2019 End: 11-22-2019 Appointment 11/22/2019 Appointment Radiology Jose Alejandro Brooke MD [address] [place] [address] [phone] [facility] Nuclear Medicine Start: 01-06-2014 Adult depression screening assessment DEPRESSION SCREENING [facility] Start: 2007 BONE DENSITY BONE DENSITY [facility] Start: 2007 Bone Density Screening Bone Density Screening [facility] Start: 2007 Pneumococcal vaccination Pneumococcal Vaccine Age 65+ (1 of 2 - PCV13) [facility] Start: 2007 Pneumococcal Vaccine: 65+ (1 - PCV) Pneumococcal Vaccine: 65+ (1 - PCV) [facility] Start: 2007 PNEUMOCOCCAL: 65+ (1 - PCV) PNEUMOCOCCAL: 65+ (1 - PCV) [facility] Start: 2007 PNEUMOVAX AGE 65 AND OVER WITH 5YR LOOKBACK (#1) PNEUMOVAX AGE 65 AND OVER WITH 5YR LOOKBACK (#1) [facility] Start: 2007 Screening for osteoporosis Bone Density Screening [facility] Start: 2002 RSV Vaccine (1 - 1-dose 60+ series) RSV Vaccine (1 - 1-dose 60+ series) [facility] Start: 1992 Administration of herpes zoster vaccine Zoster Vaccines (1 of 2) [facility] Start: 1992 SHINGRIX VACCINE (1 of 2) SHINGRIX VACCINE (1 of 2) [facility] Start: 1961 Urine microalbumin profile [facility] Start: 1960 ANNUAL PCP TEAM CHRONIC DISEASE VISIT ANNUAL PCP TEAM CHRONIC DISEASE VISIT [facility] Start: 1960 BP CONTROLLED (<130/80) BP CONTROLLED (<130/80) [facility] Start: 1947 COVID-19 VACCINE (#1) COVID-19 VACCINE (#1) [facility] Start: 1947 COVID-19 VACCINE (1) COVID-19 VACCINE (1) [facility] Start: 1945 History and physical examination, annual for health maintenance Wellness Visit [facility] Start: 1942 COVID-19 VACCINE (#1) COVID-19 VACCINE (#1) [facility] Start: 1942 Fall risk assessment Falls Risk Assessment [facility] Start: 1942 Screening for osteoporosis Dexa Scan [facility] Start: 1942 Screening mammography Mammogram [facility] Start: 1942 Tetanus vaccination Tetanus: Every 10yrs [facility] ECG COMPLETE ECG COMPLETE ECG Routine Longstanding persistent atrial fibrillation (HCC) Pacemaker Ordered: 11/11/2022 [facility] Work Phone: Payers Date Payer Category Payer Unknown [id number] 2007 Unknown HOSPITAL/MEDICAL GENERIC MEDICAL GENERIC [id number] 2007-Present [phone] [address] [place] [address] Indemnity [id number] 2007 Unknown HOSPITAL/MEDICAL GENERIC MEDICAL GENERIC [id number] 2007-Present [phone] [address] [place] [address] Indemnity [id number] 2007 Medicare [id number] 2007 Medicare MEDICARE MEDICAR E PART A & B [id number] 2007-Present [place] xxxxxxxxxxx [id number] 2007 Medicare MEDICARE MEDICAR E A AND B [id number] 2007-Present [phone] [place] [address] Medicare [id number] 2007 Medicare MEDICARE MEDICAR E A AND B [id number] 2007-Present [phone] [place] [address] Medicare [id number] 1942 Unknown [id number] 1942 Unknown [id number] 1942 Unknown [id number] Medicare [id number] Unknown COMMERCIAL COMME RCIAL MISCELLANEOUS xxxxxxx Effective for all dates xxxxxxx [id number] Social History Date Type Detail Facility Tobacco smoking stat [facility] Unknown if ever smoked [facility] Start: 1940 Sex Assigned At Not on file O [facility] Start: 11-21-2019 Tobacco smoking stat [facility] Unknown if ever smoked [facility] Start: 11-17-2016 [facility] Start: 11-17-2016 Tobacco use and exposure Smoke less tobacco non-user [facility] Start: 11-13-2020 End: 11-11-2022 Alcohol intake Current non-drinker of alcohol (finding) [facility] Start: 11-17-2016 [facility] of tobacco use Current smoker [facility] Start: 12-27-2018 End: 11-11-2022 History of Social function [facility] Start: 12-27-2018 End: 11-11-2022 Tobacco use panel [facility] PHQ2 Score 0 [facility] Clinical Notes 09-24-2020 to 11-11-2022 Christina Pace MD - 11/11/2022 2:30 PM EDTChjenny Pace MD - 11/05/2021 10:30 AM EDTTelephone Encounter - Inga Ham [facility] - 08/30/2021 2:18 PM EDT Note Date & Type Note Facility 11-11-2022 History and physi mari note Images from the original note were not included. [facility] [place] Alex Marinelli Department of Cardiovascular Medicine SECTION OF CARDIAC PACING and ELECTROPHYSIOLOGY OUTPATIENT VISIT DATE November 11, 2022 OUTPATIENT VISIT TYPE ESTABLISHED PRIMARY CARE PHYSICIAN: Delfino Brandt MD [address] [address] REFERRING PHYSICIAN: Christina Pace [address] [facility] [address] CHIEF COMPLAINT: Permanent atrial fibrillation, complete heart [...] coinciding. Christina Pace MD Electrophysiology staff pager [phone] November 11, 2022 3:17 PM documented in this encounter [facility] 11-05-2021 History and physi mari note Images from the original note were not included. [facility] [place] Alex Marinelli Department of Cardiovascular Medicine SECTION OF CARDIAC PACING and ELECTROPHYSIOLOGY OUTPATIENT VISIT DATE November 05, 2021 OUTPATIENT VISIT TYPE ESTABLISHED PRIMARY CARE PHYSICIAN: Delfino Brandt MD [address] [address] REFERRING PHYSICIAN: Phyllis Currie [address] [address] [facility] [address] CHIEF COMPLAINT: Permanent atrial fibrillation, pacemaker, AV [...] coinciding. Christina Pace MD Electrophysiology staff pager [phone] November 05, 2021 10:40 AM documented in this encounter [facility] 08-30-2021 Miscellaneous Notes Study explained/reviewed with patient. Study related follow-up requirements were discussed. Risks, benefits, alternatives, personnel, and costs of the study explained/reviewed. Patient provided informed consent for review by email. Study related questions were addressed. Provided patient with contact information to call. Inga Ham [facility] documented in this encounter [facility] 09-27-2020 Note HNO ID: [id number] Author: Carrie Garay (Composition Professor) Service: Pharmacy Author Type: ? Type: Plan [...] or your Primary Care Provider. Carrie Garay (Medypal) PAGER: [phone] September 27, 2020 4:12 PM [facility] 09-27-2020 Note HNO ID: [id number] Author: Carrie Garay (Medypal) Service: Pharmacy Author Type: ? Type: Plan of Care Filed: 09/27/2020 1:46 PM Note Text: Pharmacy Discharge Medication Service: This patient has elected to receive their discharge prescriptions through the [facility] Bedside Prescription Delivery program. The prescriptions are currently being processed. A follow-up note will be entered once the prescriptions have been filled and delivered to the patient. Please contact me with any questions or updates to the patient's discharge medications. Carrie Garay (Medyp[employer]) DCT Contact Info: [id number] [facility] 09-27-2020 Note HNO ID: [id number] Author: Carrie Garay (Medypal) Service: Pharmacy Author Type: ? Type: Plan of Care Filed: 09/27/2020 1:46 PM Note Text: ASSISTANT PROFESSOR OF EDUCATION BEDSIDE DELIVERY SURVEY 1. Patient to use [facility] Bedside Delivery - YES Insurance Information as follows: 2. Insurance card on file - YES 3. Credit card for payment - N/A [facility] 09-27-2020 Note HNO ID: [id number] Author: Katja GEORGE Service: Care Management Author Type: ? Type: Care Mgt Progress Note Filed: 09/27/2020 11:15 AM Note Text: CARE MANAGEMENT PROGRESS NOTE SERVICE DATE: 09/27/2020 SERVICE TIME: 1114 LOS: 1 day IMM Follow Up Copy Given: Yes Copy given to:: Patient Method: By Phone SIGNATURE: Katja Charla ADM PATIENT NAME: Callie Nguyen DATE: September 27, 2020 TIME: 11:15 AM PAGER/CONTACT #: [phone] [facility] 09-26-2020 Note HNO ID: [id number] Author: Phyllis Currie APRN.CNP Service: Electrophysiology Author Type: Nurse Practitioner Type: Progress Notes Filed: 09/26/2020 10:51 AM Note Text: [facility] PROGRESS NOTE Callie Nguyen [id number] PRIMARY SERVICE: Cardiology: Electrophysiology SUBJECTIVE: INTERVAL HISTORY: [...] reviewed with Dr. Izaguirre SIGNATURE: Phyllis Currie APRN.INDEPENDENT PRODUCER PAGER: [phone] DATE of SERVICE: 09/26/2020 TIME of SERVICE: 10:24 AM For communication after 5 pm on weekdays and on weekends, please page the following: - [facility] General Cardiology Consult pager [phone] - [facility] Electrophysiology Consult pager [phone] - [facility] Cardiology Consult Pager [phone] [facility] 09-25-2020 Note HNO ID: [id number] Author: Phyllis Currie APRN.INDEPENDENT PRODUCER Service: Electrophysiology Author Type: Nurse Practitioner Type: Progress Notes Filed: 09/25/2020 12:05 PM Note Text: [facility] PROGRESS NOTE Callie Mota Conor [id number] PRIMARY SERVICE: Cardiology: Electrophysiology SUBJECTIVE: INTERVAL HISTORY: [...] Izaguirre covering EP service SIGNATURE: Phyllis Currie APRN.INDEPENDENT PRODUCER PAGER: [phone] DATE of SERVICE: 09/25/2020 TIME of SERVICE: 10:11 AM For communication after 5 pm on weekdays and on weekends, please page the following: - [facility] General Cardiology Consult pager [phone] - [facility] Electrophysiology Consult pager [phone] - [facility] Cardiology Consult Pager [phone] 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 Brooke [phone] option #3 or option #1 Administer hydrocortisone 50 mg IV x1 preop (done) then every 8 hours postop (ordered) for first 24 hours; discharged with hydrocortisone 25 mg every 8 hours x2 days. Christina Pace MD Electrophysiology staff pager [phone] September 24, 2020 6:06 PM [facility] documented [facility] this encounter [facility] Diagnosis Longstanding persistent atrial fibrillation (HCC)- Primary Pacemaker Cardiac pacemaker in situ Primary hypertension Unspecified essential hypertension documented in this encounter [facility]ative)* Outpatient Procedure (Routine) - Pending Review Specialty Diagnoses / Procedures Referred By Catia perez Referred To Contact [facility] [place] Diagnoses Longstanding persistent atrial fibrillation (HCC) Pacemaker Procedures ECG COMPLETE ECG ROUTINE ECG W/LEAST 12 LDS W/I&[place] [address] [place] [address] [facility] [address] [address] Referral ID Status Reason Start Date Expiration Date Visits Requested Visits Authorized [id number] Pending Review Auto-Generat ed Referral 11/11/2022 11/11/2023 1 1 [facility] Summary Purpose Family History No Family History Records FoundNo Family History Records FoundNo Family History Records FoundNo Family History Records FoundNo Family History Records FoundNo Family History Records FoundNo Family History Records FoundNo Family History Records FoundNo Family History Records Found Advance Directives No Advanced Directives Records FoundDocuments on File Type Date Recorded 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 Equipment 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 Expl anation Advance Directives and Livin g Will 11/17/2019 12:58 PM Documents on File Type Date Recorded Patient Equipment Engineer Expl anation Advance Directive(s) 10/12/2020 12:08 PM Advance Directive(s) 09/03/2020 10:06 AM Advance Directive(s) 12/27/2018 7:14 AM Advance Directive(s) 12/24/2018 9:14 AM Advance Directive(s) 12/15/2018 6:08 AM Advance Directive(s) 12/12/2016 9:55 AM Documents on File Type Date Recorded 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 Equipment Engineer Expl anation Advance Directive(s) 12/12/2016 9:55 AM Documents on File Type Date Recorded Patient Equipment Engineer Expl anation Advance Directive(s) 12/12/2016 9:55 AM Reason for Referral Status Reason Specialty Diagnoses / Procedures Referred By Contact Referred To Contact New Request Radiology Diagnoses Basedow's disease Procedures NM Thyroid Uptake And Scan Jose Alejandro Brooke MD [address] [place] [address] 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 DATE CREATED AUTHOR AUTHOR'S ORGANIZ ATION 10/25/2020 [facility] DATE CREATED AUTHOR AUTHOR'S ORGANIZ ATION 06/10/2021 [facility] DATE CREATED AUTHOR AUTHOR'S ORGANIZ ATION 11/24/2022 [facility] DATE CREATED AUTHOR AUTHOR'S ORGANIZ ATION 05/25/2023 [facility] Reason for Visit (unrecogniz ed section and [...] or prosecute any alcohol or drug abuse patient.[facility] the event this information is protected by the Federal Confidentiality of Alcohol and Drug Abuse Patient Records regulations: The Federal rules restrict any use of the information to criminally investigate or prosecute any alcohol or drug abuse patient.[facility] Center[facility] the event this information is protected by the Federal Confidentiality of Alcohol and Drug Abuse Patient Records regulations: The Federal rules restrict any use of the information to criminally investigate or prosecute any alcohol or drug abuse patient.[facility] Center[facility] the event this information is protected by the Federal Confidentiality of Alcohol and Drug Abuse Patient Records regulations: The Federal rules restrict any use of the information to criminally investigate or prosecute any alcohol or drug abuse patient.[facility] CenterIn the event this information is protected by the Federal Confidentiality of Alcohol and Drug Abuse Patient Records regulations: The Federal rules restrict any use of the information to criminally investigate or prosecute any alcohol or drug abuse patient.[facility] CenterIn the event this information is protected by the Federal Confidentiality of Alcohol and Drug Abuse Patient Records regulations: The Federal rules restrict any use of the information to criminally investigate or prosecute any alcohol or drug abuse patient.[facility] CenterIn the event this information is protected by the Federal Confidentiality of Alcohol and Drug Abuse Patient Records regulations: The Federal rules restrict any use of the information to criminally investigate or prosecute any alcohol or drug abuse patient.[facility] CenterIn the event this information is protected by the Federal Confidentiality of Alcohol and Drug Abuse Patient Records regulations: The Federal rules restrict any use of the information to criminally investigate or prosecute any alcohol or drug abuse patient.[facility] CenterIn the event this information is protected by the Federal Confidentiality of Alcohol and Drug Abuse Patient Records regulations: The Federal rules restrict any use of the information to criminally investigate or prosecute any alcohol or drug abuse patient.[facility] CenterIn the event this information is protected by the Federal Confidentiality of Alcohol and Drug Abuse Patient Records regulations: The Federal rules restrict any use of the information to criminally investigate or prosecute any alcohol or drug abuse patient.[facility] Care Teams (unrecognized sec tion and content) Pig Machine Operator Relationship Specialty Start Date End Date Delfino Brandt Chi [address] [address] PCP - General 08/15/12 Christina Santizo MD [address] [place] [address] Primary Staff Physician Cardiology 08/10/18 Pig Machine Operator Relationship Specialty Start Date End Date Delfino Brandt Chi [address] [address] PCP - General 08/15/12 Christina Santizo MD [address] [place] [address] Primary Staff Physician Cardiology 08/10/18 Pig Machine Operator Relationship Specialty Start Date End Date Delfino Brandt Chi [address] [place] [address] PCP - General 08/15/12 Christina Santizo MD [address] [place] [address] Primary Staff Physician Cardiology 08/10/18 Pig Machine Operator Relationship Specialty Start Date End Date Delfino Brandt Chi [address] [facility] [address] [place] [address] PCP - General 08/15/12 Christina Santizo MD [address] [place] [id number] Primary Staff Physician Cardiology 08/10/18 Pig Machine Operator Relationship Specialty Start Date End Date [facility]elfino Brandt Chi [address] [facility] [address] [place] [address] PCP - General 08/15/12 Christina Santizo MD [address] [place] [address] Primary Staff Physician Cardiology 08/10/18 Pig Machine Operator Relationship Specialty Start Date End Date Delfino Brandt Chi [address] [facility] [address] [place] [address] PCP - General 08/15/12 Christina Santizo MD [address] [place] [id number] Primary Staff Physician Cardiology 08/10/18 FOR RECORDS [...] BE BASED ON THE PRIMARY CLINICAL RECORDS. [facility]. provides no warranty or guarantee of the accuracy or completeness of information in this document.
[2023-06-16 11:31] LABS: INR Fingerstick 1.2; Prothrombin Time Fingerstick 13.6 SEC (11.7-14.9)
== END ==
LOC: OLS.SW 05:00
PROVIDERS: PCP Family Medicine Geriatric Medicine; Visit Provider Internal Medicine
DX: Z79.01 Long term (current) use of 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s (principal)
CPT/HCPCS: 36416; 85610

== ENCOUNTER → 2023-06-18 | Outpatient (REF) | payer MEDICARE, OTHER, SELFPAY ==
--- OUTSIDE RECORDS SUMMARY | 2023-06-18 08:25 | XMS RPT_ITS | CCD ---
Author Name Unknown Address [address] [place] [address] [facility] Care Team Providers Care Machine Builder Name Role Phone Unavailable Unavailable Unavailable MICHELLE, [...] Unavailable Ira, Delfino Chi Primary Care Provider [phone] Ira, Delfino Chi Primary Care Provider Christina Santizo MD Unavailable Un available Ira, Delfino Chi Primary Care Provider [phone] Christina Santizo MD Unavailable Un available Ira, Delfino Chi Primary Care Provider Christina Santizo MD Unavailable Un available IRA, DELFINO CHI Primary Care Unavailable CHRISTINA SANTIZO Referring Unava ilable CHRISTINA SANTIZO Attending Unava ilable Ira, Delfino Chi Primary Care Provider [phone] Christina Santizo MD Unavailable Un available IRA, [...] te Episodic/Chronic Other aftercare (2 sources) 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; Translations: [Other detention (current) drug therapy] Onset: 10-16-2022 Episodic Other [...] 167.6 cm Christina Pace MD Work Phone: [facility] 11-11-2022 14:24-0400 Body weight 83.55 kg Christina Pace MD Work Phone: [facility] 11-11-2022 14:24-0400 Diastolic blood pressure 81 mm[Hg] Christina Pace MD Work Phone: [facility] 11-11-2022 14:24-0400 Heart rate 84 /min Christina Pace MD Work Phone: [facility] 11-11-2022 14:24-0400 Systolic blood pressure 143 mm[Hg] Christina Pace MD Work Phone: [facility] 11-05-2021 09:56-0400 Body height 167.6 cm Christina Pace MD Work Phone: [facility] 11-05-2021 09:56-0400 Body weight 82.56 kg Christina Pace MD Work Phone: [facility] 11-05-2021 09:56-0400 Diastolic blood pressure 88 mm[Hg] Christina Pace MD Work Phone: [facility] 11-05-2021 09:56-0400 Heart rate 89 /min Christina Pace MD Work Phone: [facility] 11-05-2021 09:56-0400 Systolic blood pressure 138 mm[Hg] Christina Pace MD Work Phone: [facility] Encounters Encounter Date Encounter Type Care Provider Facility Start: 05-21-2023 End: 05-25-2023 ambulatory [facility] Start: 05-03-2023 Follow-up encounter Christina Pace MD Work Phone: [facility] Start: 05-03-2023 Pacemaker Remote F/U Christina Pace MD Work Phone: [facility] Department Start: 02-02-2023 Follow-up encounter Christina Pace MD Work Phone: [facility] Start: 02-02-2023 Pacemaker Remote F/U Christina Pace MD Work Phone: [facility] Start: 11-11-2022 End: 11-12-2022 ambulatory [facility] Facility:[facility] Start: 11-11-2022 End: 11-11-2022 Patient encounter procedure [...] DTaP,Tdap,Td Vaccine (2 - Td or Tdap) [facility] Start: 10-16-2025 Diabetes Screening Diabetes Screening [facility] Start: 06-07-2024 DIABETES SCREEN DIABETES SCREEN [facility] Start: 06-07-2024 Diabetes Screening Diabetes Screening [facility] Start: 01-23-2023 Influenza vaccination [facility] Start: 05-25-2022 ADVANCE DIRECTIVE DISCUSSION ADVANCE DIRECTIVE DISCUSSION [facility] Start: 05-25-2022 DEPRESSION ASSESSMENT DEPRESSION ASSESSMENT [facility] Start: 01-23-2022 Influenza vaccination [facility] Start: 05-25-2021 ADVANCE DIRECTIVE DISCUSSION ADVANCE DIRECTIVE DISCUSSION [facility] Start: 05-25-2021 DEPRESSION ASSESSMENT DEPRESSION ASSESSMENT [facility] Start: 01-24-2020 Influenza vaccination given Sequential Influenza Vaccine (Season Ended) [facility] Start: 11-22-2019 End: 11-22-2019 Appointment 11/22/2019 Appointment Radiology Jose Alejandro Brooke MD [address] [place] [address] [phone] [facility] Start: 01-06-2014 Adult depression screening assessment DEPRESSION SCREENING [facility] Start: 2007 BONE DENSITY BONE DENSITY [facility] Start: 2007 Bone Density Screening Bone Density Screening [facility] Start: 2007 Pneumococcal vaccination Pneumococcal Vaccine Age 65+ (1 of 2 - PCV13) [facility] Start: 2007 Pneumococcal Vaccine: 65+ (1 - PCV) Pneumococcal Vaccine: 65+ (1 - PCV) [facility] Start: 2007 PNEUMOCOCCAL: 65+ (1 - PCV) PNEUMOCOCCAL: 65+ (1 - PCV) [facility] Start: 2007 PNEUMOVAX AGE 65 AND OVER WITH 5YR LOOKBACK (#1) PNEUMOVAX AGE 65 AND OVER WITH 5YR LOOKBACK (#1) [facility] Start: 2007 Screening for osteoporosis Bone Density Screening [facility] Start: 2002 RSV Vaccine (1 - 1-dose 60+ series) RSV Vaccine (1 - 1-dose 60+ series) [facility] Start: 1992 Administration of herpes zoster vaccine Zoster Vaccines (1 of 2) [facility] Start: 1992 SHINGRIX VACCINE (1 of 2) SHINGRIX VACCINE (1 of 2) [facility] Start: 1961 Urine microalbumin profile [facility] Start: 1960 ANNUAL PCP TEAM CHRONIC DISEASE VISIT ANNUAL PCP TEAM CHRONIC DISEASE VISIT [facility] Start: 1960 BP CONTROLLED (<130/80) BP CONTROLLED (<130/80) [facility] Start: 1947 COVID-19 VACCINE (#1) COVID-19 VACCINE (#1) [facility] Start: 1947 COVID-19 VACCINE (1) COVID-19 VACCINE (1) [facility] Start: 1945 History and physical examination, annual for health maintenance Wellness Visit [facility] Start: 1942 COVID-19 VACCINE (#1) COVID-19 VACCINE (#1) [facility] Start: 1942 Fall risk assessment Falls Risk Assessment [facility] Start: 1942 Screening for osteoporosis Dexa Scan [facility] Start: 1942 Screening mammography Mammogram [facility] Start: 1942 Tetanus vaccination Tetanus: Every 10yrs [facility] ECG COMPLETE ECG COMPLETE ECG Routine Longstanding persistent atrial fibrillation (HCC) Pacemaker Ordered: 11/11/2022 [facility] Work Phone: Payers Date Payer Category Payer Unknown [id number] 2007 Unknown HOSPITAL/MEDICAL GENERIC MEDICAL GENERIC [id number] 2007-Present [phone] [address] [place] [address] Indemnity [id number] 2007 Unknown HOSPITAL/MEDICAL GENERIC MEDICAL GENERIC [id number] 2007-Present [phone] [address] [place] [address] Indemnity [id number] 2007 Medicare [id number] 2007 Medicare MEDICARE MEDICAR E PART A & B xxxxxxxxxxx 2007-Present [place] xxxxxxxxxxx [id number] 2007 Medicare MEDICARE MEDICAR E A AND B [id number] 2007-Present [phone] [place] [address] Medicare [id number] 2007 Medicare MEDICARE MEDICAR E A AND B [id number] 2007-Present [phone] [place] [address] Medicare [id number] 1942 Unknown [id number] 1942 Unknown [id number] 1942 Unknown [id number] Medicare [id number] Unknown COMMERCIAL COMME RCIAL MISCELLANEOUS xxxxxxx Effective for all dates xxxxxxx [id number] Social History Date Type Detail Facility Tobacco smoking stat [facility] Unknown if ever smoked [facility] Start: 1942 Sex Assigned At Not on file [facility] Start: 11-21-2019 Tobacco smoking stat [facility] Unknown if ever smoked [facility] Start: 11-17-2016 [facility] Start: 11-17-2016 Tobacco use and exposure Smoke less tobacco non-user [facility] Start: 11-13-2020 End: 11-11-2022 Alcohol intake Current non-drinker of alcohol (finding) [facility] Start: 11-17-2016 [facility] of tobacco use Current smoker [facility] Start: 12-27-2018 End: 11-11-2022 History of Social function [facility] Start: 12-27-2018 End: 11-11-2022 Tobacco use panel [facility] PHQ2 Score 0 [facility] Clinical Notes 09-24-2020 to 11-11-2022 Christina Pace MD - 11/11/2022 2:30 PM EDTChjenny Pace MD - 11/05/2021 10:30 AM EDTTelephone Encounter - Inga Ham [facility] - 08/30/2021 2:18 PM EDT Note Date & Type Note Facility 11-11-2022 History and physi mari note Images from the original note were not included. [facility] [place] [facility] Department of Cardiovascular Medicine SECTION OF CARDIAC PACING and ELECTROPHYSIOLOGY OUTPATIENT VISIT DATE November 11, 2022 OUTPATIENT VISIT TYPE ESTABLISHED PRIMARY CARE PHYSICIAN: Delfino Brandt MD [address] [address] REFERRING PHYSICIAN: Christina Pace [address] [facility] [address] CHIEF COMPLAINT: Permanent atrial fibrillation, complete heart [...] coinciding. Christina Pace MD Electrophysiology staff pager [phone] November 11, 2022 3:17 PM documented in this encounter [facility] 11-05-2021 History and physi mari note Images from the original note were not included. [facility] [place] [facility] Department of Cardiovascular Medicine SECTION OF CARDIAC PACING and ELECTROPHYSIOLOGY OUTPATIENT VISIT DATE November 05, 2021 OUTPATIENT VISIT TYPE ESTABLISHED PRIMARY CARE PHYSICIAN: Delfino Brandt MD [address] [address] REFERRING PHYSICIAN: Phyllis Currie [address] [address] [facility] [address] CHIEF COMPLAINT: Permanent atrial fibrillation, pacemaker, AV [...] coinciding. Christina Pace MD Electrophysiology staff pager [phone] November 05, 2021 10:40 AM documented in this encounter [facility] 08-30-2021 Miscellaneous Notes Study explained/reviewed with patient. Study related follow-up requirements were discussed. Risks, benefits, alternatives, personnel, and costs of the study explained/reviewed. Patient provided informed consent for review by email. Study related questions were addressed. Provided patient with contact information to call. Inga Ham [facility] documented in this encounter [facility] 09-27-2020 Note HNO ID: [id number] Author: Carrie Garay (Medical Technologist) Service: Pharmacy Author Type: ? Type: Plan [...] or your Primary Care Provider. Carrie Garay (biNu) PAGER: [phone] September 27, 2020 4:12 PM [facility] 09-27-2020 Note HNO ID: [id number] Author: Carrie Garay (biNu) Service: Pharmacy Author Type: ? Type: Plan of Care Filed: 09/27/2020 1:46 PM Note Text: Pharmacy Discharge Medication Service: This patient has elected to receive their discharge prescriptions through the [facility] Bedside Prescription Delivery program. The prescriptions are currently being processed. A follow-up note will be entered once the prescriptions have been filled and delivered to the patient. Please contact me with any questions or updates to the patient's discharge medications. Carrie Garay (biNu) DCT Contact Info: [phone] [facility] 09-27-2020 Note HNO ID: [id number] Author: Carrie Garay (biNu) Service: Pharmacy Author Type: ? Type: Plan of Care Filed: 09/27/2020 1:46 PM Note Text: SOCIAL SECURITY BENEFITS INTERVIEWER BEDSIDE DELIVERY SURVEY 1. Patient to use [facility] Bedside Delivery - YES Insurance Information as follows: 2. Insurance card on file - YES 3. Credit card for payment - N/A [facility] 09-27-2020 Note HNO ID: [id number] Author: Katja GEORGE Service: Care Management Author Type: ? Type: Care Mgt Progress Note Filed: 09/27/2020 11:15 AM Note Text: CARE MANAGEMENT PROGRESS NOTE SERVICE DATE: 09/27/2020 SERVICE TIME: 1114 LOS: 1 day IMM Follow Up Copy Given: Yes Copy given to:: Patient Method: By Phone SIGNATURE: Katja Charla ADM PATIENT NAME: Callie Nguyen DATE: September 27, 2020 TIME: 11:15 AM PAGER/CONTACT #: [phone] [facility] 09-26-2020 Note HNO ID: [id number] Author: Phyllis Currei APRN.CNP Service: Electrophysiology Author Type: Nurse Practitioner Type: Progress Notes Filed: 09/26/2020 10:51 AM Note Text: [facility] PROGRESS NOTE Callie Nguyen [id number] PRIMARY SERVICE: Cardiology: Electrophysiology SUBJECTIVE: INTERVAL HISTORY: [...] reviewed with Dr. Izaguirre SIGNATURE: Phyllis Currie APRN.UI DEVELOPER WITH ANGULAR JS PAGER: [phone] DATE of SERVICE: 09/26/2020 TIME of SERVICE: 10:24 AM For communication after 5 pm on weekdays and on weekends, please page the following: - [facility] General Cardiology Consult pager [phone] - [facility] Electrophysiology Consult pager [phone] - [facility] Cardiology Consult Pager [phone] [facility] 09-25-2020 Note HNO ID: [id number] Author: Phyllis Currie APRN.UI DEVELOPER WITH ANGULAR JS Service: Electrophysiology Author Type: Nurse Practitioner Type: Progress Notes Filed: 09/25/2020 12:05 PM Note Text: [facility] PROGRESS NOTE Callie Mota Conor [id number] PRIMARY SERVICE: Cardiology: Electrophysiology SUBJECTIVE: INTERVAL HISTORY: [...] Izaguirre covering EP service SIGNATURE: Phyllis Currie APRN.UI DEVELOPER WITH ANGULAR JS PAGER: [phone] DATE of SERVICE: 09/25/2020 TIME of SERVICE: 10:11 AM For communication after 5 pm on weekdays and on weekends, please page the following: - [facility] General Cardiology Consult pager [phone] - [facility] Electrophysiology Consult pager [phone] - [facility] Cardiology Consult Pager [phone] [facility] 09-24-2020 Note HNO ID: [id number] Author: Christina Pace MD Service: Electrophysiology Author Type: Physician Type: Progress Notes Filed: 09/24/2020 6:06 PM Note Text: EP staff Per patient's retail sales teammate Dr. Brooke [phone] option #3 or option #1 Administer hydrocortisone 50 mg IV x1 preop (done) then every 8 hours postop (ordered) for first 24 hours; discharged with hydrocortisone 25 mg every 8 hours x2 days. Christina Pace MD Electrophysiology staff pager [phone] September 24, 2020 6:06 PM [facility] Longstanding persistent atrial fibrillation (HCC)- Primary Pacemaker Cardiac pacemaker in situ Primary hypertension Unspecified essential hypertension [facility] Outpatient Procedure (Routine) - Pending Review Specialty Diagnoses / Procedures Referred By Catia perez Referred To Contact [facility] [place] Diagnoses Longstanding persistent atrial fibrillation (HCC) Pacemaker Procedures ECG COMPLETE ECG ROUTINE ECG W/LEAST 12 LDS W/I&[place] [address] [place] [address] [facility] [address] [address] Referral ID Status Reason Start Date Expiration Date Visits Requested Visits Authorized [id number] Pending Review Auto-Generat ed Referral 11/11/2022 11/11/2023 1 1 [facility] Summary Purpose Family History No Family History Records FoundNo Family History Records FoundNo Family History Records FoundNo Family History Records FoundNo Family History Records FoundNo Family History Records FoundNo Family History Records FoundNo Family History Records FoundNo Family History Records Found Advance Directives No Advanced Directives Records FoundDocuments on File Type Date Recorded 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 Advance Directives and Livin g Will 11/17/2019 12:58 PM Documents on File Type Date Recorded 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 Advance Directive(s) 10/12/2020 12:08 PM Advance Directive(s) 09/03/2020 10:06 AM Advance Directive(s) 12/27/2018 7:14 AM Advance Directive(s) 12/24/2018 9:14 AM Advance Directive(s) 12/15/2018 6:08 AM Advance Directive(s) 12/12/2016 9:55 AM Documents on File Type Date Recorded 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 Advance Directive(s) 12/12/2016 9:55 AM Documents on File Type Date Recorded 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 Advance Directive(s) 12/12/2016 9:55 AM Reason for Referral Status Reason Specialty Diagnoses / Procedures Referred By Contact Referred To Contact New Request Radiology Diagnoses Basedow's disease Procedures NM Thyroid Uptake And Scan Jose Alejandro Brooke MD [address] [place] [address] 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 Additional Source Comments INFORMATION SOURCE (unrecogn ized section and content) DATE CREATED AUTHOR AUTHOR'S ORGANIZ ATION 11/12/2017 [facility] DATE CREATED AUTHOR AUTHOR'S ORGANIZ ATION 11/18/2017 [facility] DATE CREATED AUTHOR AUTHOR'S ORGANIZ ATION 05/03/2018 [facility] DATE CREATED AUTHOR AUTHOR'S ORGANIZ ATION 05/03/2018 [facility] DATE CREATED AUTHOR AUTHOR'S ORGANIZ ATION 10/25/2020 [facility] DATE CREATED AUTHOR AUTHOR'S ORGANIZ ATION 06/10/2021 [facility] DATE CREATED AUTHOR AUTHOR'S ORGANIZ ATION 11/24/2022 [facility] DATE CREATED AUTHOR AUTHOR'S ORGANIZ ATION 05/25/2023 [facility] Reason for Visit (unrecogniz ed section and [...] or prosecute any alcohol or drug abuse patient.[facility] the event this information is protected by the Federal Confidentiality of Alcohol and Drug Abuse Patient Records regulations: The Federal rules restrict any use of the information to criminally investigate or prosecute any alcohol or drug abuse patient.[facility] Hospital[facility] the event this information is protected by the Federal Confidentiality of Alcohol and Drug Abuse Patient Records regulations: The Federal rules restrict any use of the information to criminally investigate or prosecute any alcohol or drug abuse patient.[facility] Hospital[facility] the event this information is protected by the Federal Confidentiality of Alcohol and Drug Abuse Patient Records regulations: The Federal rules restrict any use of the information to criminally investigate or prosecute any alcohol or drug abuse patient.[facility] Hospital[facility] the event this information is protected by the Federal Confidentiality of Alcohol and Drug Abuse Patient Records regulations: The Federal rules restrict any use of the information to criminally investigate or prosecute any alcohol or drug abuse patient.[facility] HospitalIn the event this information is protected by the Federal Confidentiality of Alcohol and Drug Abuse Patient Records regulations: The Federal rules restrict any use of the information to criminally investigate or prosecute any alcohol or drug abuse patient.[facility] Hospital[facility] the event this information is protected by the Federal Confidentiality of Alcohol and Drug Abuse Patient Records regulations: The Federal rules restrict any use of the information to criminally investigate or prosecute any alcohol or drug abuse patient.[facility] Hospital[facility] the event this information is protected by the Federal Confidentiality of Alcohol and Drug Abuse Patient Records regulations: The Federal rules restrict any use of the information to criminally investigate or prosecute any alcohol or drug abuse patient.[facility] HospitalIn the event this information is protected by the Federal Confidentiality of Alcohol and Drug Abuse Patient Records regulations: The Federal rules restrict any use of the information to criminally investigate or prosecute any alcohol or drug abuse patient.[facility] HospitalIn the event this information is protected by the Federal Confidentiality of Alcohol and Drug Abuse Patient Records regulations: The Federal rules restrict any use of the information to criminally investigate or prosecute any alcohol or drug abuse patient.[facility] Care Teams (unrecognized sec tion and content) Machine Builder Relationship Specialty Start Date End Date Delfino Brandt Chi [address] [address] PCP - General 08/15/12 Christina Santizo MD [address] [place] [address] Primary Staff Physician Cardiology 08/10/18 Machine Builder Relationship Specialty Start Date End Date Delfino Brandt Chi [address] [address] PCP - General 08/15/12 Christina Santizo MD [address] [place] [address] Primary Staff Physician Cardiology 08/10/18 Machine Builder Relationship Specialty Start Date End Date Delfino Brandt Chi [address] [place] [address] PCP - General 08/15/12 Christina Santizo MD [address] [place] [address] Primary Staff Physician Cardiology 08/10/18 Machine Builder Relationship Specialty Start Date End Date Delfino Brandt Chi [address] [facility] [address] [place] [address] PCP - General 08/15/12 Christina Santizo MD [address] [place] [id number] Primary Staff Physician Cardiology 08/10/18 Machine Builder Relationship Specialty Start Date End Date Delfino Brandt Chi [address] [facility] [address] [place] [address] PCP - General 08/15/12 Christina Santizo MD [address] [place] [address] Primary Staff Physician Cardiology 08/10/18 Machine Builder Relationship Specialty Start Date End Date Delfino Brandt Chi [address] [facility] [address] [place] [address] PCP - General 08/15/12 Christina Santizo MD [address] [place] [id number] Primary Staff Physician Cardiology 08/10/18 FOR RECORDS [...] BE BASED ON THE PRIMARY CLINICAL RECORDS. [facility]. provides no warranty or guarantee of the accuracy or completeness of information in this document.
[2023-06-18 08:52] LABS: International Normalized Ratio 1.3; Prothrombin Time (Protime)PT. 16.7 SECONDS (11.7-14.9)
== END ==
LOC: OLS.SW 05:40
PROVIDERS: PCP Family Medicine Geriatric Medicine; Visit Provider Internal Medicine
DX: Z79.01 Long term (current) use of 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s (principal)
CPT/HCPCS: 36415; 85610

== ENCOUNTER → 2023-07-13 | Outpatient (REF) | payer MEDICARE, OTHER, SELFPAY ==
--- OUTSIDE RECORDS SUMMARY | 2023-07-13 04:57 | XMS RPT_ITS | CCD ---
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) drug therapy] Onset: 10-16-2022 Episodic Other [...] 167.6 cm Christina Pace MD Work Phone: [facility] 11-11-2022 14:24-0400 Body weight 83.55 kg Christina Pace MD Work Phone: [facility] 11-11-2022 14:24-0400 Diastolic blood pressure 81 mm[Hg] Christina Paec MD Work Phone: [facility] 11-11-2022 14:24-0400 Heart rate 84 /min Christina Pace MD Work Phone: [facility] 11-11-2022 14:24-0400 Systolic blood pressure 143 mm[Hg] Christina Pace MD Work Phone: [facility] 11-05-2021 09:56-0400 Body height 167.6 cm Christina Pace MD Work Phone: [facility] 11-05-2021 09:56-0400 Body weight 82.56 kg Christina Pace MD Work Phone: [facility] 11-05-2021 09:56-0400 Diastolic blood pressure 88 mm[Hg] Christina Pace MD Work Phone: [facility] 11-05-2021 09:56-0400 Heart rate 89 /min Christina Pace MD Work Phone: [facility] 11-05-2021 09:56-0400 Systolic blood pressure 138 mm[Hg] Christina Pace MD Work Phone: [facility] Encounters Encounter Date Encounter Type Care Provider Facility Start: 05-21-2023 End: 05-25-2023 ambulatory [facility] Start: 05-03-2023 Follow-up encounter Christina Pace MD Work Phone: [facility] Start: 05-03-2023 Pacemaker Remote F/U Christina Pace MD Work Phone: [facility] Department Start: 02-02-2023 Follow-up encounter Christina Pace MD Work Phone: [facility] Start: 02-02-2023 Pacemaker Remote F/U Christina Pace MD Work Phone: [facility] Department Start: 11-11-2022 End: 11-12-2022 ambulatory [facility] Facility:[facility] Start: 11-11-2022 End: 11-11-2022 Patient encounter [...] 11-22-2019 Thyroid uptake w/blo od flow sngle/mult kourtnye reji External Transcribed Start: 01-06-2013 Adult depression screening assessment Research Coordinator Work Phone: Plan of Treatment Date Care Activity Detail Author Start: 12-12-2025 Urine microalbumin profile DTaP,Tdap,Td Vaccine (2 - Td or Tdap) [facility] Start: 10-16-2025 Diabetes Screening Diabetes Screening [facility] Start: 06-07-2024 DIABETES SCREEN DIABETES SCREEN [facility] Start: 06-07-2024 Diabetes Screening Diabetes Screening [facility] Start: 01-23-2023 Influenza vaccination [facility] Start: 05-25-2022 ADVANCE DIRECTIVE DISCUSSION ADVANCE DIRECTIVE DISCUSSION [facility] Start: 05-25-2022 DEPRESSION ASSESSMENT DEPRESSION ASSESSMENT [facility] Start: 01-23-2022 Influenza vaccination [facility] Start: 05-25-2021 ADVANCE DIRECTIVE DISCUSSION ADVANCE DIRECTIVE DISCUSSION [facility] Start: 05-25-2021 DEPRESSION ASSESSMENT DEPRESSION ASSESSMENT [facility] Start: 01-24-2020 Influenza vaccination given Sequential Influenza Vaccine (Season Ended) [facility] Start: 11-22-2019 End: 11-22-2019 Appointment 11/22/2019 Appointment Radiology Jose Alejandro Brooke MD [address] [place] [address] [phone] [facility] Start: 01-06-2014 Adult depression screening assessment DEPRESSION SCREENING [facility] Start: 2007 BONE DENSITY BONE DENSITY [facility] Start: 2007 Bone Density Screening Bone Density Screening [facility] Start: 2007 Pneumococcal vaccination Pneumococcal Vaccine Age 65+ (1 of 2 - PCV13) [facility] Start: 2007 Pneumococcal Vaccine: 65+ (1 - PCV) Pneumococcal Vaccine: 65+ (1 - PCV) [facility] Start: 2007 PNEUMOCOCCAL: 65+ (1 - PCV) PNEUMOCOCCAL: 65+ (1 - PCV) [facility] Start: 2007 PNEUMOVAX AGE 65 AND OVER WITH 5YR LOOKBACK (#1) PNEUMOVAX AGE 65 AND OVER WITH 5YR LOOKBACK (#1) [facility] Start: 2007 Screening for osteoporosis Bone Density Screening [facility] Start: 2002 RSV Vaccine (1 - 1-dose 60+ series) RSV Vaccine (1 - 1-dose 60+ series) [facility] Start: 1992 Administration of herpes zoster vaccine Zoster Vaccines (1 of 2) [facility] Start: 1992 SHINGRIX VACCINE (1 of 2) SHINGRIX VACCINE (1 of 2) [facility] Start: 1961 Urine microalbumin profile [facility] Start: 1960 ANNUAL PCP TEAM CHRONIC DISEASE VISIT ANNUAL PCP TEAM CHRONIC DISEASE VISIT [facility] Start: 1960 BP CONTROLLED (<130/80) BP CONTROLLED (<130/80) [facility] Start: 1947 COVID-19 VACCINE (#1) COVID-19 VACCINE (#1) [facility] Start: 1947 COVID-19 VACCINE (1) COVID-19 VACCINE (1) [facility] Start: 1945 History and physical examination, annual for health maintenance Wellness Visit [facility] Start: 1942 COVID-19 VACCINE (#1) COVID-19 VACCINE (#1) [facility] Start: 1942 Fall risk assessment Falls Risk Assessment [facility] Start: 1942 Screening for osteoporosis Dexa Scan [facility] Start: 1942 Screening mammography Mammogram [facility] Start: 1942 Tetanus vaccination Tetanus: Every 10yrs [facility] ECG COMPLETE ECG COMPLETE ECG Routine Longstanding persistent atrial fibrillation (HCC) Pacemaker Ordered: 11/11/2022 [facility] Work Phone: Payers Date Payer Category Payer Unknown [id number] 2007 Unknown HOSPITAL/MEDICAL GENERIC MEDICAL GENERIC [id number] 2007-Present [phone] [address] [place] [address] Indemnity [id number] 2007 Unknown HOSPITAL/MEDICAL GENERIC MEDICAL GENERIC [id number] 2007-Present [phone] [address] [place] [address] Indemnity [id number] 2007 Medicare [id number] 2007 Medicare MEDICARE MEDICAR E PART A & B xxxxxxxxxxx 2007-Present [place] xxxxxxxxxxx [id number] 2007 Medicare MEDICARE MEDICAR E A AND B [id number] 2007-Present [phone] [place] [address] Medicare [id number] 2007 Medicare MEDICARE MEDICAR E A AND B [id number] 2007-Present [phone] [place] [address] Medicare [id number] 1942 Unknown [id number] 1942 Unknown [id number] 1942 Unknown [id number] Medicare [id number] Unknown COMMERCIAL COMME RCIAL MISCELLANEOUS xxxxxxx Effective for all dates xxxxxxx [id number] Social History Date Type Detail Facility Tobacco smoking stat [facility] Unknown if ever smoked [facility] Start: 1942 Sex Assigned At Not on file [facility] Start: 11-21-2019 Tobacco smoking stat [facility] Unknown if ever smoked [facility] Start: 11-17-2016 [facility] Start: 11-17-2016 Tobacco use and exposure Smoke less tobacco non-user [facility] Start: 11-13-2020 End: 11-11-2022 Alcohol intake Current non-drinker of alcohol (finding) [facility] Start: 11-17-2016 Tobacco [facility] of tobacco use Current smoker [facility] Start: 12-27-2018 End: 11-11-2022 History of Social function [facility] Start: 12-27-2018 End: 11-11-2022 Tobacco use panel [facility] PHQ2 Score 0 [facility] Clinical Notes 09-24-2020 to 11-11-2022 Christina Pace MD - 11/11/2022 2:30 PM EDTChjenny Pace MD - 11/05/2021 10:30 AM EDTTelephone Encounter - Inga Ham [facility] - 08/30/2021 2:18 PM EDT Note Date & Type Note Facility 11-11-2022 History and physi mari note Images from the original note were not included. [facility] Department of Cardiovascular Medicine SECTION OF CARDIAC PACING and ELECTROPHYSIOLOGY OUTPATIENT VISIT DATE November 11, 2022 OUTPATIENT VISIT TYPE ESTABLISHED PRIMARY CARE PHYSICIAN: Delfino Brandt MD [address] [address] REFERRING PHYSICIAN: Christina Pace [address] [facility] [address] CHIEF COMPLAINT: Permanent atrial fibrillation, complete heart [...] coinciding. Christina Pace MD Electrophysiology staff pager [phone] November 11, 2022 3:17 PM documented in this encounter [facility] 11-05-2021 History and physi mari note Images from the original note were not included. [facility] Department of Cardiovascular Medicine SECTION OF CARDIAC PACING and ELECTROPHYSIOLOGY OUTPATIENT VISIT DATE November 05, 2021 OUTPATIENT VISIT TYPE ESTABLISHED PRIMARY CARE PHYSICIAN: Delfino Brandt MD [address] [address] REFERRING PHYSICIAN: Phyllis Currie [address] [address] [facility] [address] CHIEF COMPLAINT: Permanent atrial fibrillation, pacemaker, AV [...] coinciding. Christina Pace MD Electrophysiology staff pager [phone] November 05, 2021 10:40 AM documented in this encounter [facility] 08-30-2021 Miscellaneous Notes Study explained/reviewed with patient. Study related follow-up requirements were discussed. Risks, benefits, alternatives, personnel, and costs of the study explained/reviewed. Patient provided informed consent for review by email. Study related questions were addressed. Provided patient with contact information to call. Inga Ham [facility] documented in this encounter [facility] 09-27-2020 Note HNO ID: [id number] Author: Carrie Garay (Outside Medical Sales Representative) Service: Pharmacy Author Type: ? Type: Plan [...] or your Primary Care Provider. Carrie Garay ([place]iecco) PAGER: [phone] September 27, 2020 4:12 PM [facility] 09-27-2020 Note HNO ID: [id number] Author: Carrie Garay (Lamiecco) Service: Pharmacy Author Type: ? Type: Plan of Care Filed: 09/27/2020 1:46 PM Note Text: Pharmacy Discharge Medication Service: This patient has elected to receive their discharge prescriptions through the [facility] Bedside Prescription Delivery program. The prescriptions are currently being processed. A follow-up note will be entered once the prescriptions have been filled and delivered to the patient. Please contact me with any questions or updates to the patient's discharge medications. Carrie Garay ([place]) DCT Contact Info: [phone] [facility] 09-27-2020 Note HNO ID: [id number] Author: Carrie Garay ([place]ie[place]) Service: Pharmacy Author Type: ? Type: Plan of Care Filed: 09/27/2020 1:46 PM Note Text: CLINICAL TRIAL ASSISTANT BEDSIDE DELIVERY SURVEY 1. Patient to use [facility] Bedside Delivery - YES Insurance Information as follows: 2. Insurance card on file - YES 3. Credit card for payment - N/A [facility] 09-27-2020 Note HNO ID: [id number] Author: Katja GEORGE Service: Care Management Author Type: ? Type: Care Mgt Progress Note Filed: 09/27/2020 11:15 AM Note Text: CARE MANAGEMENT PROGRESS NOTE SERVICE DATE: 09/27/2020 SERVICE TIME: 1114 LOS: 1 day IMM Follow Up Copy Given: Yes Copy given to:: Patient Method: By Phone SIGNATURE: Katja Charla ADM PATIENT NAME: Callie Nguyen DATE: September 27, 2020 TIME: 11:15 AM PAGER/CONTACT #: [phone] [facility] 09-26-2020 Note HNO ID: [id number] Author: Phyllis Currie APRN.CNP Service: Electrophysiology Author Type: Nurse Practitioner Type: Progress Notes Filed: 09/26/2020 10:51 AM Note Text: [facility] PROGRESS NOTE Callie Nguyen [id number] PRIMARY SERVICE: Cardiology: Electrophysiology SUBJECTIVE: INTERVAL HISTORY: [...] reviewed with Dr. Izaguirre SIGNATURE: Phyllis Currie APRN.[employer] SUPERVISOR PAGER: [phone] DATE of SERVICE: 09/26/2020 TIME of SERVICE: 10:24 AM For communication after 5 pm on weekdays and on weekends, please page the following: - [facility] General Cardiology Consult pager [phone] - [facility] Electrophysiology Consult pager [phone] - [facility] Cardiology Consult Pager [phone] [facility] 09-25-2020 Note HNO ID: [id number] Author: Phyllis Currie APRN.[employer] SUPERVISOR Service: Electrophysiology Author Type: Nurse Practitioner Type: Progress Notes Filed: 09/25/2020 12:05 PM Note Text: [facility] PROGRESS NOTE Callie Mota Conor [id number] PRIMARY SERVICE: Cardiology: Electrophysiology SUBJECTIVE: INTERVAL HISTORY: [...] Izaguirre covering EP service SIGNATURE: Phyllis Currie APRN.[employer] SUPERVISOR PAGER: [phone] DATE of SERVICE: 09/25/2020 TIME of SERVICE: 10:11 AM For communication after 5 pm on weekdays and on weekends, please page the following: - [facility] General Cardiology Consult pager [phone] - [facility] Electrophysiology Consult pager [phone] - [facility] Cardiology Consult Pager [phone] [facility] 09-24-2020 Note HNO ID: [id number] Author: Christina Pace MD Service: Electrophysiology Author Type: Physician Type: Progress Notes Filed: 09/24/2020 6:06 PM Note Text: EP staff Per patient's tandem mill sticker Dr. Brooke [phone] option #3 or option #1 Administer hydrocortisone 50 mg IV x1 preop (done) then every 8 hours postop (ordered) for first 24 hours; discharged with hydrocortisone 25 mg every 8 hours x2 days. Christina Pace MD Electrophysiology staff pager [phone] September 24, 2020 6:06 PM [facility] Longstanding persistent atrial fibrillation (HCC)- Primary Pacemaker Cardiac pacemaker in situ Primary hypertension Unspecified essential hypertension documented [facility] this [facility] Outpatient Procedure (Routine) - Pending Review Specialty Diagnoses / Procedures Referred By Catia perez Referred To Contact [facility] Diagnoses Longstanding persistent atrial fibrillation (HCC) Pacemaker Procedures ECG COMPLETE ECG ROUTINE ECG W/LEAST 12 LDS W/I&[place] [address] [place] [address] [facility] [address] [address] Referral ID Status Reason Start Date Expiration Date Visits Requested Visits Authorized [id number] Pending Review Auto-Generat ed Referral 11/11/2022 11/11/2023 1 1 [facility] Summary Purpose Family History No Family History Records FoundNo Family History Records FoundNo Family History Records FoundNo Family History Records FoundNo Family History Records FoundNo Family History Records FoundNo Family History Records FoundNo Family History Records FoundNo Family History Records Found Advance Directives No Advanced Directives Records FoundDocuments on File Type Date Recorded Patient Brush Washer Expl anation Advance Directives and Livin g Will 11/17/2019 12:58 PM Documents on File Type Date Recorded Patient Brush Washer Expl anation Advance Directive(s) 10/12/2020 12:08 PM Advance Directive(s) 09/03/2020 10:06 AM Advance Directive(s) 12/27/2018 7:14 AM Advance Directive(s) 12/24/2018 9:14 AM Advance Directive(s) 12/15/2018 6:08 AM Advance Directive(s) 12/12/2016 9:55 AM Documents on File Type Date Recorded Patient Brush Washer Expl anation Advance Directive(s) 12/12/2016 9:55 AM Documents on File Type Date Recorded Patient Brush Washer Expl anation Advance Directive(s) 12/12/2016 9:55 AM Reason for Referral Status Reason Specialty Diagnoses / Procedures Referred By Contact Referred To Contact New Request Radiology Diagnoses Basedow's disease Procedures NM Thyroid Uptake And Scan Jose Alejandro Brooke MD [address] [place] [address] 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 DATE CREATED AUTHOR AUTHOR'S ORGANIZ ATION 06/10/2021 [facility] DATE CREATED AUTHOR AUTHOR'S ORGANIZ ATION 11/24/2022 [facility] DATE CREATED AUTHOR AUTHOR'S ORGANIZ ATION 05/25/2023 [facility] Reason for Visit (unrecogniz ed [...] or prosecute any alcohol or drug abuse patient.[facility] the event this information is protected by the Federal Confidentiality of Alcohol and Drug Abuse Patient Records regulations: The Federal rules restrict any use of the information to criminally investigate or prosecute any alcohol or drug abuse patient.[facility] the event this information is protected by the Federal Confidentiality of Alcohol and Drug Abuse Patient Records regulations: The Federal rules restrict any use of the information to criminally investigate or prosecute any alcohol or drug abuse patient.[facility] the event this information is protected by the Federal Confidentiality of Alcohol and Drug Abuse Patient Records regulations: The Federal rules restrict any use of the information to criminally investigate or prosecute any alcohol or drug abuse patient.[facility] the event this information is protected by the Federal Confidentiality of Alcohol and Drug Abuse Patient Records regulations: The Federal rules restrict any use of the information to criminally investigate or prosecute any alcohol or drug abuse patient.[facility] the event this information is protected by the Federal Confidentiality of Alcohol and Drug Abuse Patient Records regulations: The Federal rules restrict any use of the information to criminally investigate or prosecute any alcohol or drug abuse patient.[facility] the event this information is protected by the Federal Confidentiality of Alcohol and Drug Abuse Patient Records regulations: The Federal rules restrict any use of the information to criminally investigate or prosecute any alcohol or drug abuse patient.[facility] the event this information is protected by the Federal Confidentiality of Alcohol and Drug Abuse Patient Records regulations: The Federal rules restrict any use of the information to criminally investigate or prosecute any alcohol or drug abuse patient.[facility] the event this information is protected by the Federal Confidentiality of Alcohol and Drug Abuse Patient Records regulations: The Federal rules restrict any use of the information to criminally investigate or prosecute any alcohol or drug abuse patient.[facility] the event this information is protected by the Federal Confidentiality of Alcohol and Drug Abuse Patient Records regulations: The Federal rules restrict any use of the information to criminally investigate or prosecute any alcohol or drug abuse patient.[facility] Care Teams (unrecognized sec tion and content) Communicable Disease Specialist Relationship Specialty Start Date End Date Delfino Brandt Chi [address] [address] PCP - General 08/15/12 Christina Santizo MD [address] [place] [address] Primary Staff Physician Cardiology 08/10/18 Communicable Disease Specialist Relationship Specialty Start Date End Date Delfino Brandt Chi [address] [address] PCP - General 08/15/12 Christina Santizo MD [address] [place] [address] Primary Staff Physician Cardiology 08/10/18 Communicable Disease Specialist Relationship Specialty Start Date End Date Delfino Brandt Chi [address] [place] [address] PCP - General 08/15/12 Christina Santizo MD [address] [place] [address] Primary Staff Physician Cardiology 08/10/18 Communicable Disease Specialist Relationship Specialty Start Date End Date Delfino Brandt Chi [address] [facility] [address] [place] [address] PCP - General 08/15/12 Christina Santizo MD [address] [place] [id number] Primary Staff Physician Cardiology 08/10/18 Communicable Disease Specialist Relationship Specialty Start Date End Date Delfino Brandt Chi [address] [facility] [address] [place] [address] PCP - General 08/15/12 Christina Santizo MD [address] [place] [address] Primary Staff Physician Cardiology 08/10/18 Communicable Disease Specialist Relationship Specialty Start Date End Date Delfino Brandt Chi [address] [facility] [address] [place] [address] PCP - General 08/15/12 Christina Satnizo MD [address] [place] [id number] Primary Staff Physician Cardiology 08/10/18 FOR RECORDS [...] ON THE PRIMARY CLINICAL RECORDS. [facility]. provides no warranty or guarantee of the accuracy or completeness of information in this document.
[2023-07-13 08:31] LABS: Hematocrit 30.2 % (37-47); Mean Corp Hgb Conc 29.8 g/dL (32-36); Mean Corpuscular Hgb 26.2 pg (27.0-32.0); Mean Platelet Vol. 10.4 fl (6.2-12.0); Platelet Count 252 K/mm3 (150-450); RBC Distribution Width CV 17.5 % (11.6-14.6); RBC Distribution Width SD 56.8 fl (35.1-43.9); Red Blood Count 3.43 M/mm3 (4.2-5.4); White Blood Count 9.5 K/mm3 (4.4-11.0)
[2023-07-13 08:52] LABS: Anion Gap 4 (5-15); BUN 23 mg/dL (7-18); BUN/Creat Ratio 36.3 RATIO (10-20); Calcium,Total 8.3 mg/dL (8.5-10.1); Chloride 113 mmol/L (98-107); Creatinine, Serum 0.63 mg/dL (0.55-1.02); EST Glomerular Filtration Rate 96 mL/min (>60); Est Glom Filt Rate - Afr Amer 116 mL/min (>60); Glucose 94 mg/dL (74-106); Potassium 3.7 mmol/L (3.5-5.1); Sodium Level 143 mmol/L (136-145)
== END ==
LOC: OLS.SW 05:00
PROVIDERS: PCP Family Medicine Geriatric Medicine; Visit Provider Internal Medicine
DX: I48.0 Paroxysmal atrial fibrillation (principal); I10 Essential (primary) hypertension; E03.9 Hypothyroidism, unspecified
CPT/HCPCS: 36415; 80048; 85027

== ENCOUNTER → 2023-07-23 | Outpatient (CLI) | payer MEDICARE, OTHER, SELFPAY ==
[2023-07-23 13:08] LABS: Absolute Neutrophil Count 8.8 X10^3/uL (2.0-7.7); Basophil# 0.03 X10^3/uL; Basophil% 0.3 % (0-1); Eosinophil# 0.28 X10^3/uL; Eosinophils% 2.5 % (0-5); Hematocrit 33.8 % (37-47); Hemoglobin 9.9 g/dL (12.0-15.0); Lymphocyte % 10.9 % (19-41); Mean Corp Hgb Conc 29.3 g/dL (32-36); Mean Corpuscular Hgb 26.1 pg (27.0-32.0); Mean Corpuscular Volume 88.9 fL (81-99); Mean Platelet Vol. 9.8 fl (6.2-12.0); Monocyte# 0.65 X10^3/uL; Monocyte% 5.9 % (0-10); NRBC Flagged by Analyzer 0 % (0-5); Neutrophil % 79.9 % (47-70); Platelet Count 389 K/mm3 (150-450); RBC Distribution Width CV 18.8 % (11.6-14.6); RBC Distribution Width SD 61.1 fl (35.1-43.9)
[2023-07-23 14:12] LABS: Anion Gap 4 (5-15); BUN 28 mg/dL (7-18); BUN/Creat Ratio 30.5 RATIO (10-20); Calcium,Total 8.5 mg/dL (8.5-10.1); Chloride 111 mmol/L (98-107); Creatinine, Serum 0.92 mg/dL (0.55-1.02); EST Glomerular Filtration Rate 63 mL/min (>60); Est Glom Filt Rate - Afr Amer 76 mL/min (>60); Glucose 99 mg/dL (74-106); Potassium 3.8 mmol/L (3.5-5.1); Sodium Level 142 mmol/L (136-145)
== END | disposition home or self-care (01) ==
LOC: POLAB3 12:27
PROVIDERS: PCP Family Medicine Geriatric Medicine; Visit Provider Family Medicine Geriatric Medicine
DX: E78.5 Hyperlipidemia, unspecified (principal)
CPT/HCPCS: 36415; 80048; 85025

== ENCOUNTER 2023-08-18 13:30 | Outpatient (RCR) | payer MEDICARE, OTHER, SELFPAY ==
[2023-07-27 10:32] VITALS: BP 145/84; PULSE 88; RESP 20; TEMP 36.1; BMI 27.6
--- NOTE | 2023-07-27 12:49 | HP.PCM_ITS ---
History of Present Illness Date of Service: 07/27/23 Chief Complaint: Left lateral leg ulcer that was initially caused by trauma from bumping leg on edge of car. History of Wound: Patient is 83 year female who presents for further evaluation of an ulcer on her left posterolateral leg. She initially bumped her leg on her car frame when removing something from her car on 05/22/24 and needed sutures to her left anterior leg. She then developed increased pain, swelling and a hematoma to her left leg and was seen in the ED very early on 05/27/23. She is on chronic anticoagulation for Afib, her INR was 5.3 at that time. She was discharged home with follow up with her PCP later that day. She returned to the ED via squad later that day after she experienced a large amount of bleeding. The hematoma was evacuated in the ED under sedation. She was admitted to the hospital and she required transfusion of 1 unit PRBC when her hemoglobin dropped from 11 to 6.9. She was transferred to [facility] where she has been until a few days ago. She comes in today for further evaluation of her left posterolateral leg ulcer from a hematoma. She states she is doing well at home. Her daughter is helping her with her dressing changes. She is unsure of what they are placing on the ulcer. She has a history of Afib, halfway coagulation, mitral valve regurgitation, cardiac ablation, cardiac pace maker, DVT, HTN, hyperlipidemia, rheumatoid arthritis, cataract removal, and multiple wounds in the past. Today she denies fever, chills, nausea or vomiting. She comes in for further evaluation of her left leg ulcer. Progress of Wound: Left anterior leg has a healed incision from the trauma she had in late April. There are several areas that there is tunneling and there is white/kenyon, thick drainage when palpating these areas. On her left posterolateral leg ulcer, there is beefy pink granulation tissue present. There are a couple areas with skin islands present. There is some dried scabbing surrounding the ulcer. Karen wound is clear. No erythema present on either the left anterior cluster area or the left posterolateral area. [facility] Medical History Atrial fibrillation Atrial flutter with rapid ventricular response Bleeding tendency Cellulitis of left leg Chronic anticoagulation Chronic pain Coronary artery disease CPAP (continuous positive airway pressure) dependence DVT (deep venous thrombosis) Essential hypertension Hematoma of left lower extremity History of cardioversion (~03/22/19) History of CVA (cerebrovascular accident) (~2012) History of left heart catheterization (LHC) (~1989) Hyperlipidemia Hypertension custodial current use of 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 Non-rheumatic mitral regurgitation Open wound of left lower extremity with complication Paroxysmal atrial fibrillation 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 Post-menopausal Presence of cardiac pacemaker Rheumatoid arthritis Sleep apnea Ulcer of left lower extremity with fat layer exposed Home Medications ascorbic acid (vitamin C) 1,000 mg tablet 500 mg PO BID SUPPLEMENT 10/28/16 [History Last Taken 03/20/19] cholecalciferol (vitamin D3) 50 mcg (2,000 unit) capsule 2,000 unit PO QODAY SUPPLEMENT 11/11/18 [History Last Taken 03/20/19] L.acidoph, paracasei,B. lactis 10 billion cell capsule 1 ea PO DAILY GUT HEALTH 03/21/19 [History Last Taken 03/21/19] magnesium oxide 400 mg (241.3 mg magnesium) tablet 400 mg PO DAILY SUPPLEMENT 03/21/19 [History Last Taken 03/21/19] vitamin A 3,000 mcg (10,000 unit) capsule 10,000 unit PO QODAY SUPPLEMENT 03/21/19 [History Last Taken 03/21/19] methenamine hippurate 1 gram tablet 1 g PO DAILY UTI PREVENTION 06/14/20 [History Last Taken Unknown] HYDRO EYE 1 tab PO DAILY EYE HEALTH 06/21/20 [History Last Taken Unknown] levothyroxine 25 mcg tablet 12.5 mcg PO QODAY THYROID 12/12/21 [History Last Taken Unknown] vitamin B complex 1 cap PO DAILY SUPPLEMENT 06/17/22 [History Last Taken Unknown ] metoprolol tartrate 25 mg tablet 25 mg PO BID BLOOD PRESSURE #180 tabs 10/07/22 [Rx Last Taken Unknown] warfarin 1 mg tablet 1 mg PO DAILY BLOOD THINNER 05/27/23 [History Last Taken Unknown] warfarin 2.5 mg tablet 2.5 mg PO DAILY BLOOD THINNER 05/27/23 [History Last Taken Unknown] acetaminophen 325 mg tablet 650 mg (2 x 325 mg) PO Q6H PRN PRN Pain 1-10 Or Fever >100.7 #0 tabs 05/30/23 [Rx Last Taken Unknown] ferrous sulfate 325 mg (65 mg iron) tablet 325 mg PO DAILY #30 tabs 05/30/23 [Rx Last Taken Unknown] melatonin 3 mg tablet 3 mg PO QHS PRN PRN Insomnia #0 tabs 05/30/23 [Rx Last Taken Unknown] apixaban 2.5 mg tablet (Eliquis) 2.5 mg PO BID 07/27/23 [History Last Taken Unknown] Allergy/AdvReac Type Severity Reaction Status Date / Time No Known Allergies Allergy Verified 07/27/23 10:50 Family History (Reviewed 07/29/23 @ 10:22 by Birgit Leon WEATHERIZATION INSTALLER, WEATHERIZATION INSTALLER-C) Father CAD (coronary artery disease) Surgical History (Reviewed 07/29/23 @ 10:22 by Birgit Leon WEATHERIZATION INSTALLER, WEATHERIZATION INSTALLER-C) History of cardiac radiofrequency ablation (RFA) (~01/15/17) History of eye surgery (~10/2021) Social History Smoking Status: Never smoker how long ago did patient quit smoking: Smoked for 2 years as a teen alcohol intake: never substance use type: does not use caffeine: No ROS Constitutional Constitutional: Reports as per HPI; Denies fatigue, fever(s) or headache(s) Eyes Eyes: Reports as per HPI ENT HEENT: Reports none Cardiovascular Cardiovascular: Denies chest pain or dyspnea Respiratory/Chest Respiratory/Chest: Denies cough or dyspnea Gastrointestinal Gastrointestinal: Denies diarrhea, dyspepsia, nausea or vomiting Genitourinary Genitourinary: Reports none Musculoskeletal Musculoskeletal: Reports as per HPI, joint pain and joint stiffness Integumentary Integumentary: Reports as per HPI and skin ulcer Neurologic Neurologic: Reports systems reviewed and no addt'l complaints, except as documented Psychiatric Psychiatric: Reports none Endocrine Endocrinology: Reports none Vital Signs Vital Signs Vital Signs: 07/27/23 10:32 Temperature 97 F L Temperature Source Temporal Pulse Rate 88 Respiratory Rate 20 H Blood Pressure 145/84 H Blood Pressure Mean 104 Blood Pressure Source Monitor Weight Weight: 170 lb 12.573 oz Body Mass Index (BMI) 27.6 Physical Exam Const alert, oriented x3 and no apparent distress General Appearance: cooperative HEENT normocephalic Head and Scalp: atraumatic Eyes General Eye: normal appearance of both eyes Neck full ROM Lymph Lymphatic: no lymphedema noted Resp normal respiratory effort, normal air movement and clear to auscultation bilaterally Effort and Inspection: able to speak in complete sentences Cardio regular rate and regular rhythm Cardio Narrative: Has history of Afib, rhythm is regular at this time GI normal to inspection, nondistended, normoactive bowel sounds and soft to palpation Back/Spine normal ROM Extremity normal capillary refill Extremity Narrative: +1 edema left lower extremity. Peripheral Pulses: Yes dorsalis pedis pulses present bilateral 2+ Skin Wound Narrative: Left posterolateral leg ulcer is beefy pink with granulation tissue present. There is dry scabbing surrounding the ulcer. There are several skin islands in the lower posterior portion of the ulcer. Karen wound is stable. On her anterior leg where the initial injury was with sutures, there are several areas that have some depth that when pressed, there is thick white/kenyon drainage. There is no erythema or odor in the area. Neuro oriented x3 and moves all extremities Psych mental status grossly normal, thought process normal and cooperative Appearance: grossly normal Debridement Note Debridement Note Wound debrided: #3 - posterolateral leg ulcer Laterality: Left Wound Grade/Stage: Grade III Type of Debridement: Excisional debridement Anesthesia Used: 5% Lidocaine Gel Depth: Down to and including healthy tissue and in the subcutaneous layer Percentage of wound debrided: 100 Instrument Used: 7mm curette Tissue Removed: Non viable tissue and slough Severity: Fat Layer Exposed Amount of bleeding with debridement: Mild Bleeding Controlled with: Compression and gauze Patient tolerated procedure: Patient tolerated procedure well Post-Debridement Measurements and Additional Note: Post-Debridement Measurements/Treatment - Nurse 1 - General Ulcer Assessment Start: 07/27/23 10:32 Freq: Status: Active Protocol: [email or web address].[email or web address] Activity Type Activity Date Activity User E-sign Co-sign Detail Recorded Client Recorded Date Recorded By Document 07/27/23 10:32 DL Desktop 07/27/23 10:48 DL 07/27/23 10:32 - Today's Visit Information Type of service Initial Visit Arrival Mode Ambulatory,Cane Transfer Assistance None Patient Identification Verified (Name & Yes ) Patient Requires Transmission-Based No Precautions Height and Weight Height 5 ft 6 in Weight 170 lb 12.573 oz Weight in Pounds 170.8 lbs Body Mass Index (BMI) 27.6 BMI Classification Overweight BSA - Hugh 1.87 Vital Signs Temperature (97.8 F-99.1 F) 97 F L Temperature Source Temporal Pulse Rate (60-100) 88 Pulse Location Monitor Respiratory Rate (12-18) 20 H Respiratory rate source Observation Blood Pressure (90/60-120/80) 145/84 H Blood Pressure Mean (mm Hg) 104 Source Monitor Pain Scale: 0-10 Numeric Is Patient Pain Free? Yes Communication Assessment Preferred language Icelandic Able to Read Yes Able to Write Yes Communication Tools None Right Hearing Abillity Normal Left Hearing Abillity Normal Visual Assistive Devices Glasses Teaching Assessment Preferences Verbal,Written, Demonstration Barriers to Learning None Readiness To Learn Good Willingness to Engage in Self Management Med Activies Readiness to Engage in Self Management Med Activities Anxiety Level Anxious Cooperation Cooperative Perception Coherent Interest in Health Problem Asks Questions Education Importance Acknowledges Need Does Patient Smoke tobacco or other No substances Smoking Status Never smoker Is Patient Diabetic No WC - Nurse 1 - General Ulcer Measurement Start: 07/27/23 10:32 Freq: Status: Active Protocol: Activity Type Activity Date Activity User E-sign Co-sign Detail Recorded Client Recorded Date Recorded By Document 07/27/23 10:32 DL Desktop 07/27/23 10:48 DL 07/27/23 10:32 Wound Center Nurse 1 #3 L Calf -Current Size (cm) - Length 10 -Current Size (cm) - Width 11 -Current Size (cm) - Depth 0.1 -Total Square Cm 110 -Photo Taken Yes -Exudate Amt Large -Exudate Type Serosanguineous -Wound Margin Distinct, Outline Attached -Granulation Amt Large (67-100%) -Granulation Quality Red -Necrosis Amt Small (1-33%) -Necrotic Tissue Type Adherent Slough -Structure Exposed N/A -Texture (Karen-wound Skin Appearance) Localized Edema ,Scarring -Moisture (Karen-wound Skin Appearance) No Abnormality -Color (Karen-wound Skin Appearance) Hemosiderin Staining -Temperature (Karen-wound Skin No Abnormality Appearance) (Pt Warm) -Ulcer Cleansing Soap and Water -Foul Odor after Cleansing No -Anesthetic Used 4% Lidocaine Solution Left Calf (cm) 42 Left Ankle (cm) 22.5 WC - Nurse 2 - General Ulcer CM Notes Start: 07/27/23 10:32 Freq: Status: Active Protocol: Activity Type Activity Date Activity User E-sign Co-sign Detail Recorded Client Recorded Date Recorded By Document 07/27/23 11:12 JF Laptop 07/27/23 11:27 JF 07/27/23 11:12 Wound Center Nurse 2 #4 Left pool cluster -Time 11:25 -Correct Patient Yes -Correct Side, Site, Position Yes -Correct Procedure Yes -Procedure Performed Yes -Type of Procedure Debridement -Clinical Debridement Subcutaneous -Tissue Removed Muscle -Post Debridement (cm) - Length 3 -Post Debridement (cm) - Width 8 -Post Debridement (cm) - Depth 0.9 -Total Square (Post) (cm) 24 -Area of Debridement (cm) - Length 3 -Area of Debridement (cm) - Width 8 -Total Square (Area) (cm) 24 -Tunneling No -Undermining/Tunneling No -Circular Undermining No -Wound/Ulcer Outcome Not Healed -Ulcer Cleansing Rinsed/ Irrigated with Saline -Foul Odor after Cleansing No -Bioengineered Tissue No -Bleeding Controlled with Pressure -Treatment Response Procedure Tolerated Well -Offloading No -Debridement - Subq, 1st 20sq cm Yes -Debridement, SubQ, ea addt'l 20sq cm 7 or part thereof #3 L Calf -Time 11:12 -Correct Patient Yes -Correct Side, Site, Position Yes -Correct Procedure Yes -Procedure Performed Yes -Type of Procedure Debridement -Clinical Debridement Subcutaneous -Tissue Removed Subcutaneous -Post Debridement (cm) - Length 11.3 -Post Debridement (cm) - Width 12 -Post Debridement (cm) - Depth 0.1 -Total Square (Post) (cm) 135.6 -Area of Debridement (cm) - Length 11.3 -Area of Debridement (cm) - Width 12 -Total Square (Area) (cm) 135.6 -Tunneling No -Undermining/Tunneling No -Circular Undermining No -Wound/Ulcer Outcome Not Healed -Ulcer Cleansing Rinsed/ Irrigated with Saline -Foul Odor after Cleansing No -Bioengineered Tissue No -Bleeding Controlled with Pressure -Treatment Response Procedure Tolerated Well -Offloading No -Debridement - Subq, 1st 20sq cm Yes Pain Scale: 0-10 Numeric Is Patient Pain Free? Yes WC - Nurse 3 - General Ulcer D/C NN Start: 07/27/23 10:32 Freq: Status: Active Protocol: Activity Type Activity Date Activity User E-sign Co-sign Detail Recorded Client Recorded Date Recorded By Document 07/27/23 11:53 KW Desktop 07/27/23 11:55 KW 07/27/23 11:53 Wound Care Center Nurse 3 4-left pool cluster -Ulcer Cleansing Rinsed/ Irrigated with Saline -Foul Odor after Cleansing No -Primary Dressing Applied C Hydrogel ($) -Primary Dressing Covered/Secured with Dry Gauze & Roll Gauze, Secured with Tape #3 L Calf -Ulcer Cleansing Rinsed/ Irrigated with Saline -Foul Odor after Cleansing No -Primary Dressing Applied Fibracol Plus 4x4 -Primary Dressing Covered/Secured with Dry Gauze & Roll Gauze, Secured with Tape -Fibracol Plus 4x4 1 Left -Tubular Bandage Double Layer -Size of Tubigrip Used Size F -Size F ($) 2 Treatment Response Procedure Tolerated Well Pain Scale: 0-10 Numeric Is Patient Pain Free? Yes WC - Visit Discharge Discharge Condition Stable Ambulatory Status Ambulatory Transportation Private Auto Additional Wound Wound debrided: #4 left anterior leg cluster Laterality: Left Type of Debridement: Excisional debridement Depth: Down to and including healthy tissue and in the subcutaneous layer Percentage of wound debrided: 100 Instrument Used: 3mm curette Tissue Removed: Non viable tissue and slough Severity: Limited To Skin Breakdown Amount of bleeding with debridement: Mild Bleeding Controlled with: Compression and gauze Patient tolerated procedure: Patient tolerated procedure well Operative Diagnosis: Several tunnels after wound closure, unable to determine severity Charges/Coding Visit Charges Office Visits / Consults: 25636 OV L3 Est 20min (25 modifier) Procedures Integumentary [id number]: [id number] Humera subq tissue 20 sq cm/< Add On Codes: 92805 Humera subq tissue add-on (x7) 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 She is now home after being at an F after her left leg traumatic wound with subsequent hematoma. Wound care - To the left anterior leg tunnel areas, collagen hydrogel covered with ABD. The left posterolateral leg ulcer place Fibrocol + covered with ABD. May secure the ABDs to both areas wit Kerlix or cling wrap. Compression - Double tubigrip. Stressed importance of keeping legs elevated when sitting to help prevent edema. A wound culture was obtained today, 07/26/25.? A positive culture will necessitate antibiotic therapy. She would benefit from an advanced skin substitute, such as Theraskin, to help expedite wound healing of this ulcer. With this being on her lower leg, it will take longer for this ulcer to heal, so an advanced skin product would really be beneficial. Follow up one week.
[2023-08-03 08:44] VITALS: BP 136/60; PULSE 94; RESP 18; TEMP 36.6; BMI 27.6
--- NOTE | 2023-08-03 11:15 | PCM.WC.PN ---
History of Present Illness Date of Service: 08/03/23 Chief Complaint: Left lateral leg ulcer that was initially caused by trauma from bumping leg on edge of car. History of Wound: Patient is 83 year female who presents for further evaluation of an ulcer on her left posterolateral leg. She initially bumped her leg on her car frame when removing something from her car on 05/22/24 and needed sutures to her left anterior leg. She then developed increased pain, swelling and a hematoma to her left leg and was seen in the ED very early on 05/27/23. She is on chronic anticoagulation for Afib, her INR was 5.3 at that time. She was discharged home with follow up with her PCP later that day. She returned to the ED via squad later that day after she experienced a large amount of bleeding. The hematoma was evacuated in the ED under sedation. She was admitted to the hospital and she required transfusion of 1 unit PRBC when her hemoglobin dropped from 11 to 6.9. She was transferred to [facility] where she has been until a few days ago. She comes in today for further evaluation of her left posterolateral leg ulcer from a hematoma. She states she is doing well at home. Her daughter is helping her with her dressing changes. She is unsure of what they are placing on the ulcer. She has a history of Afib, intermediate coagulation, mitral valve regurgitation, cardiac ablation, cardiac pace maker, DVT, HTN, hyperlipidemia, rheumatoid arthritis, cataract removal, and multiple wounds in the past. Wound cultures obtained 07/27/23 which were positive for Pseudomonas aeruginosa, MRSA, Corynebacterium striatum, and Anaerobic cocci. She has been started on Levaquin and Metronidazole. She will need Linezolid to treat the MRSA, but I would like to wait until she completes one of the other antibiotics before starting her on that. Instructed her to take a probiotic while on the antibiotics. Today she denies fever, chills, nausea or vomiting. She comes in for further evaluation of her left leg ulcer. Progress of Wound: Left anterior leg cluster have several small open wounds, that are visibly smaller compared to last week. No erythema present. On her left posterolateral leg ulcer, there is beefy pink granulation tissue present. There are a couple areas with skin islands present. There is some dried scabbing surrounding the ulcer. Karen wound is clear. No erythema present on the left posterolateral area. She has started her antibiotics for her positive wound cultures. Objective Data Objective Data Vital Signs: Vital Signs Temp Pulse Resp BP O2 Del Method 97.9 F 94 18 136/60 H Room Air 08/03/23 08:44 08/03/23 08:44 08/03/23 08:44 08/03/23 08:44 08/03/23 08:44 Oxygen Delivery Method Room Air Weight: 170 lb 12.573 oz Body Mass Index (BMI) 27.6 Lab / Micro Data Micro: Microbiology 07/27/23 11:25 Wound - Leg, Left Gram Stain - Final 07/27/23 11:25 Wound - Leg, Left Wound Culture - Final Pseudomonas aeruginosa Meth. resistant Staph. aureus Corynebacterium striatum 07/27/23 11:25 Wound - Leg, Left Anaerobic Culture - Final Anaerobic cocci Charges/Coding Procedures Integumentary 111xxx-113xx: [id number] Humera subq tissue 20 sq cm/< Add On Codes: 39967 Humera subq tissue add-on (x6) Debridement Note Debridement Note Wound debrided: #3 - posterolateral leg ulcer Laterality: Left Wound Grade/Stage: Grade III Type of Debridement: Excisional debridement Anesthesia Used: 5% Lidocaine Gel Depth: Down to and including healthy tissue and in the subcutaneous layer Percentage of wound debrided: 100 Instrument Used: 7mm curette Tissue Removed: Non viable tissue and slough Severity: Fat Layer Exposed Amount of bleeding with debridement: Mild Bleeding Controlled with: Compression and gauze Patient tolerated procedure: Patient tolerated procedure well Post-Debridement Measurements and Additional Note: Post-Debridement Measurements/Treatment - Nurse 1 - General Ulcer Assessment Start: 07/27/23 10:32 Freq: Status: Active Protocol: MIKE.[email or web address] Activity Type Activity Date Activity User E-sign Co-sign Detail Recorded Client Recorded Date Recorded By Document 07/27/23 10:32 DL Desktop 07/27/23 10:48 DL Document 08/03/23 08:44 KW Desktop 08/03/23 08:50 KW 07/27/23 08/03/23 10:32 08:44 - Today's Visit Information Type of service Initial Visit Follow-up Visit (Physician/FREIGHT RECEIVER ) Arrival Mode Ambulatory,Cane Ambulatory,Cane Transfer Assistance None Patient Identification Verified (Name & Yes Yes ) Patient Requires Transmission-Based No Precautions Height and Weight Height 5 ft 6 in Weight 170 lb 12.573 oz Weight in Pounds 170.8 lbs Body Mass Index (BMI) 27.6 27.6 BMI Classification Overweight Overweight BSA - Hugh 1.87 Vital Signs Temperature (97.8 F-99.1 F) 97 F L 97.9 F Temperature Source Temporal Temporal Pulse Rate (60-100) 88 94 Pulse Location Monitor Monitor Respiratory Rate (12-18) 20 H 18 Respiratory rate source Observation Observation Oxygen Delivery Method Room Air Blood Pressure (90/60-120/80) 145/84 H 136/60 H Blood Pressure Mean (mm Hg) 104 85 Source Monitor Monitor Position Semi-Fowlers Blood Pressure Location Left Arm History Since Last Visit- (Skip if this is Patient's initial visit) Have you changed medications since your No last visit? Any new allergies or adverse reactions No Had a fall/change in ADL's that may No increase risk of falls Signs or symptoms of abuse and/or No neglect since last visit Have you been in the hospital since your No last visit? Has dressing in place as prescribed Yes Has compression in place as prescribed Yes Has offloadiing in place as prescribed N/A Experienced any changes in pain level or No management Left Footwear Regular Shoe Right Footwear Regular Shoe Pain Scale: 0-10 Numeric Is Patient Pain Free? Yes Yes Communication Assessment Preferred language Tajik Able to Read Yes Able to Write Yes Communication Tools None Right Hearing Abillity Normal Left Hearing Abillity Normal Visual Assistive Devices Glasses Teaching Assessment Preferences Verbal,Written, Demonstration Barriers to Learning None Readiness To Learn Good Willingness to Engage in Self Management Med Activies Readiness to Engage in Self Management Med Activities Anxiety Level Anxious Cooperation Cooperative Perception Coherent Interest in Health Problem Asks Questions Education Importance Acknowledges Need Does Patient Smoke tobacco or other No substances Smoking Status Never smoker Is Patient Diabetic No WC - Nurse 1 - General Ulcer Measurement Start: 07/27/23 10:32 Freq: Status: Active Protocol: Activity Type Activity Date Activity User E-sign Co-sign Detail Recorded Client Recorded Date Recorded By Document 07/27/23 10:32 DL Desktop 07/27/23 10:48 DL Document 08/03/23 08:44 KW Desktop 08/03/23 08:50 KW 07/27/23 08/03/23 10:32 08:44 Wound Center Nurse 1 4-left pool cluster -Current Size (cm) - Length 0.7 -Current Size (cm) - Width 2.7 -Current Size (cm) - Depth 0.1 -Total Square Cm 1.89 -Date of Last Picture (Recall this 08/03/23 field) -Photo Taken Yes -Exudate Amt Small -Exudate Type Serosanguineous -Wound Margin Distinct, Outline Attached -Granulation Amt Large (67-100%) -Granulation Quality Red -Texture (Karen-wound Skin Appearance) Assessed -Moisture (Karen-wound Skin Appearance) Assessed -Color (Karen-wound Skin Appearance) Assessed, Erythema -Temperature (Karen-wound Skin No Abnormality Appearance) (Pt Warm) -Tenderness on Palpation (Karen-wound No Skin Appearance) -Ulcer Cleansing Soap and Water -Anesthetic Used 4% Lidocaine Solution #3 L Calf -Current Size (cm) - Length 10 11 -Current Size (cm) - Width 11 9.8 -Current Size (cm) - Depth 0.1 0.1 -Total Square Cm 110 107.8 -Date of Last Picture (Recall this 08/03/23 field) -Photo Taken Yes Yes -Exudate Amt Large Medium -Exudate Type Serosanguineous Serosanguineous -Wound Margin Distinct, Distinct, Outline Outline Attached Attached -Granulation Amt Large (67-100%) Large (67-100%) -Granulation Quality Red Red -Necrosis Amt Small (1-33%) -Necrotic Tissue Type Adherent Slough -Structure Exposed N/A -Texture (Karen-wound Skin Appearance) Localized Edema Assessed ,Scarring -Moisture (Karen-wound Skin Appearance) No Abnormality Assessed -Color (Karen-wound Skin Appearance) Hemosiderin Assessed, Staining Erythema -Temperature (Karen-wound Skin No Abnormality No Abnormality Appearance) (Pt Warm) (Pt Warm) -Tenderness on Palpation (Karen-wound No Skin Appearance) -Ulcer Cleansing Soap and Water Soap and Water -Foul Odor after Cleansing No -Anesthetic Used 4% Lidocaine 4% Lidocaine Solution Solution Left Calf (cm) 42 39.7 Left Ankle (cm) 22.5 22.1 WC - Nurse 2 - General Ulcer CM Notes Start: 07/27/23 10:32 Freq: Status: Active Protocol: Activity Type Activity Date Activity User E-sign Co-sign Detail Recorded Client Recorded Date Recorded By Document 07/27/23 11:12 JF Laptop 07/27/23 11:27 JF Edit Result 07/27/23 11:12 JF (1) [id number] 07/27/23 13:12 JF Edit Result 07/27/23 11:12 JF (2) Laptop 07/28/23 16:12 JF Document 08/03/23 09:03 JF Laptop 08/03/23 09:09 JF (1) 4-left pool cluster - Tissue Removed Muscle => Subcutaneous (2) #3 L Calf - Debridement - Subq, 1st 20sq cm Yes => No 07/27/23 08/03/23 11:12 09:03 Wound Center Nurse 2 4-left pool cluster -Time 11:25 09:04 -Correct Patient Yes Yes -Correct Side, Site, Position Yes Yes -Correct Procedure Yes Yes -Procedure Performed Yes Yes -Type of Procedure Debridement Debridement -Clinical Debridement Subcutaneous Subcutaneous -Tissue Removed Subcutaneous Subcutaneous -Post Debridement (cm) - Length 3 1.0 -Post Debridement (cm) - Width 8 7.2 -Post Debridement (cm) - Depth 0.9 0.7 -Total Square (Post) (cm) 24 7.20 -Area of Debridement (cm) - Length 3 1.0 -Area of Debridement (cm) - Width 8 7.2 -Total Square (Area) (cm) 24 7.20 -Tunneling No No -Undermining/Tunneling No No -Circular Undermining No No -Wound/Ulcer Outcome Not Healed Not Healed -Ulcer Cleansing Rinsed/ Rinsed/ Irrigated with Irrigated with Saline Saline -Foul Odor after Cleansing No No -Bioengineered Tissue No No -Bleeding Controlled with Pressure Pressure -Treatment Response Procedure Procedure Tolerated Well Tolerated Well -Offloading No No -Debridement - Subq, 1st 20sq cm Yes No -Debridement, SubQ, ea addt'l 20sq cm 7 or part thereof #3 L Calf -Time 11:12 09:04 -Correct Patient Yes Yes -Correct Side, Site, Position Yes Yes -Correct Procedure Yes Yes -Procedure Performed Yes Yes -Type of Procedure Debridement Debridement -Clinical Debridement Subcutaneous Subcutaneous -Tissue Removed Subcutaneous Subcutaneous -Post Debridement (cm) - Length 11.3 11 -Post Debridement (cm) - Width 12 10.8 -Post Debridement (cm) - Depth 0.1 0.2 -Total Square (Post) (cm) 135.6 118.8 -Area of Debridement (cm) - Length 11.3 11 -Area of Debridement (cm) - Width 12 10.8 -Total Square (Area) (cm) 135.6 118.8 -Tunneling No No -Undermining/Tunneling No No -Circular Undermining No No -Wound/Ulcer Outcome Not Healed Not Healed -Ulcer Cleansing Rinsed/ Rinsed/ Irrigated with Irrigated with Saline Saline -Foul Odor after Cleansing No No -Bioengineered Tissue No No -Bleeding Controlled with Pressure Pressure -Treatment Response Procedure Procedure Tolerated Well Tolerated Well -Offloading No No -Debridement - Subq, 1st 20sq cm No Yes -Debridement, SubQ, ea addt'l 20sq cm 6 or part thereof Pain Scale: 0-10 Numeric Is Patient Pain Free? Yes Yes WC - Nurse 3 - General Ulcer D/C NN Start: 07/27/23 10:32 Freq: Status: Active Protocol: Activity Type Activity Date Activity User E-sign Co-sign Detail Recorded Client Recorded Date Recorded By Document 07/27/23 11:53 Desktop 07/27/23 11:55 KW Document 08/03/23 09:25 [facility] Desktop 08/03/23 09:26 F 07/27/23 08/03/23 11:53 09:25 Wound Care Center Nurse 3 4-left pool cluster -Ulcer Cleansing Rinsed/ Rinsed/ Irrigated with Irrigated with Saline Saline -Foul Odor after Cleansing No No -Primary Dressing Applied C Hydrogel ($) -Other Dressing hydrogel -Primary Dressing Covered/Secured with Dry Gauze & Dry Gauze & Roll Gauze, Roll Gauze, Secured with Secured with Tape Tape #3 L Calf -Ulcer Cleansing Rinsed/ Rinsed/ Irrigated with Irrigated with Saline Saline -Foul Odor after Cleansing No No -Primary Dressing Applied Fibracol Plus Fibracol Plus 4x4 4x4 -Other Dressing abd -Primary Dressing Covered/Secured with Dry Gauze & Dry Gauze & Roll Gauze, Roll Gauze, Secured with Secured with Tape Tape -Fibracol Plus 4x4 1 3 Left -Tubular Bandage Double Layer Double Layer -Size of Tubigrip Used Size F Size F -Size F ($) 2 2 Treatment Response Procedure Procedure Tolerated Well Tolerated Well Pain Scale: 0-10 Numeric Is Patient Pain Free? Yes Yes WC - Visit Discharge Discharge Condition Stable Stable Ambulatory Status Ambulatory Ambulatory,Cane Transportation Private Auto Private Auto Additional Wound Wound debrided: #4 left anterior leg cluster Laterality: Left Type of Debridement: Excisional debridement Depth: Down to and including healthy tissue and in the subcutaneous layer Percentage of wound debrided: 100 Instrument Used: 3mm curette Tissue Removed: Non viable tissue and slough Severity: Limited To Skin Breakdown Amount of bleeding with debridement: Mild Bleeding Controlled with: Compression and gauze Patient tolerated procedure: Patient tolerated procedure well Operative Diagnosis: Several tunnels after wound closure 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 She is now home after being at an ECF after her left leg traumatic wound with subsequent hematoma. Wound care - To the left anterior leg tunnel areas, collagen hydrogel covered with ABD. The left posterolateral leg ulcer place Fibrocol + covered with ABD. May secure the ABDs to both areas wit Kerlix or cling wrap. Compression - Double tubigrip. Stressed importance of keeping legs elevated when sitting to help prevent edema. Wound cultures obtained 07/27/23 which were positive for Pseudomonas aeruginosa, MRSA, Corynebacterium striatum, and Anaerobic cocci. She has been started on Levaquin and Metronidazole. She will need Linezolid to treat the MRSA, but I would like to wait until she completes one of the other antibiotics before starting her on that. Instructed her to take a probiotic while on the antibiotics. She would benefit from an advanced skin substitute, such as Theraskin, to help expedite wound healing of this ulcer. With this being on her lower leg, it will take longer for this ulcer to heal, so an advanced skin product would really be beneficial. Will apply to her insurance for this after her wound cultures are treated. Follow up one week.
--- NOTE | 2023-08-07 14:47 | WC ---
3.11.24 [facility]
[2023-08-10 09:56] VITALS: BP 138/69; PULSE 94; RESP 20; TEMP 36.2; BMI 27.6
--- NOTE | 2023-08-10 13:18 | PN.PCM_ITS ---
History of Present Illness Date of Service: 08/10/23 Chief Complaint: Left lateral leg ulcer that was initially caused by trauma from bumping leg on edge of car. History of Wound: Patient is 83 year female who presents for further evaluation of an ulcer on her left posterolateral leg. She initially bumped her leg on her car frame when removing something from her car on 05/22/24 and needed sutures to her left anterior leg. She then developed increased pain, swelling and a hematoma to her left leg and was seen in the ED very early on 05/27/23. She is on chronic anticoagulation for Afib, her INR was 5.3 at that time. She was discharged home with follow up with her PCP later that day. She returned to the ED via squad later that day after she experienced a large amount of bleeding. The hematoma was evacuated in the ED under sedation. She was admitted to the hospital and she required transfusion of 1 unit PRBC when her hemoglobin dropped from 11 to 6.9. She was transferred to [facility] where she has been until a few days ago. She comes in today for further evaluation of her left posterolateral leg ulcer from a hematoma. She states she is doing well at home. Her daughter is helping her with her dressing changes. She is unsure of what they are placing on the ulcer. She has a history of Afib, halfway coagulation, mitral valve regurgitation, cardiac ablation, cardiac pace maker, DVT, HTN, hyperlipidemia, rheumatoid arthritis, cataract removal, and multiple wounds in the past. Wound cultures obtained 07/27/23 which were positive for Pseudomonas aeruginosa, MRSA, Corynebacterium striatum, and Anaerobic cocci. She has been started on Levaquin and Metronidazole. She will need Linezolid to treat the MRSA, but I would like to wait until she completes one of the other antibiotics before starting her on that. Instructed her to take a probiotic while on the antibiotics. Today she denies fever, chills, nausea or vomiting. She comes in for further evaluation of her left leg ulcer. Progress of Wound: Left anterior leg cluster has a couple small open wounds, that are visibly smaller compared to last week. No erythema present. On her left posterolateral leg ulcer, there is beefy pink granulation tissue present. There are a couple areas with skin islands present. Karen wound is clear. No erythema present on the left posterolateral area. She has started her antibiotics for her positive wound cultures and will finish the one in the next day or two. Will start her on Linezolid to cover the MRSA when she completes the Metronidazole. Objective Data Objective Data Vital Signs: Vital Signs Temp Pulse Resp BP O2 Del Method 97.2 F L 94 20 H 138/69 H Room Air 08/10/23 09:56 08/10/23 09:56 08/10/23 09:56 08/10/23 09:56 08/03/23 08:44 Oxygen Delivery Method Room Air Weight: 170 lb 12.573 oz Body Mass Index (BMI) 27.6 Lab / Micro Data Micro: Microbiology 07/27/23 11:25 Wound - Leg, Left Gram Stain - Final 07/27/23 11:25 Wound - Leg, Left Wound Culture - Final Pseudomonas aeruginosa Meth. resistant Staph. aureus Corynebacterium striatum 07/27/23 11:25 Wound - Leg, Left Anaerobic Culture - Final Anaerobic cocci Charges/Coding Procedures Integumentary [id number]: [id number] Humera subq tissue 20 sq cm/< Add On Codes: 81898 Humera subq tissue add-on (x5) Debridement Note Debridement Note Wound debrided: #3 - posterolateral leg ulcer Laterality: Left Wound Grade/Stage: Grade III Type of Debridement: Excisional debridement Anesthesia Used: 5% Lidocaine Gel Depth: Down to and including healthy tissue and in the subcutaneous layer Percentage of wound debrided: 100 Instrument Used: 7mm curette Tissue Removed: Non viable tissue and slough Severity: Fat Layer Exposed Amount of bleeding with debridement: Mild Bleeding Controlled with: Compression and gauze Patient tolerated procedure: Patient tolerated procedure well Post-Debridement Measurements and Additional Note: Post-Debridement Measurements/Treatment WC - Nurse 1 - General Ulcer Assessment Start: 07/27/23 10:32 Freq: Status: Active Protocol: [place] Activity Type Activity Date Activity User E-sign Co-sign Detail Recorded Client Recorded Date Recorded By Document 07/27/23 10:32 DL Desktop 07/27/23 10:48 DL Document 08/03/23 08:44 KW Desktop 08/03/23 08:50 KW Document 08/10/23 09:56 DL Desktop 08/10/23 10:03 DL 07/27/23 08/03/23 08/10/23 10:32 08:44 09:56 WC - Today's Visit Information Type of service Initial Visit Follow-up Visit Follow-up Visit (Physician/IRRIGATION TECHNICIAN (Physician/IRRIGATION TECHNICIAN ) ) Arrival Mode Ambulatory,Cane Ambulatory,Cane Ambulatory,Cane Transfer Assistance None None Patient Identification Verified (Name & Yes Yes Yes ) Patient Requires Transmission-Based No No Precautions Height and Weight Height 5 ft 6 in Weight 170 lb 12.573 oz Weight in Pounds 170.8 lbs Body Mass Index (BMI) 27.6 27.6 27.6 BMI Classification Overweight Overweight Overweight BSA - Hugh 1.87 Vital Signs Temperature (97.8 F-99.1 F) 97 F L 97.9 F 97.2 F L Temperature Source Temporal Temporal Temporal Pulse Rate (60-100) 88 94 94 Pulse Location Monitor Monitor Monitor Respiratory Rate (12-18) 20 H 18 20 H Respiratory rate source Observation Observation Observation Oxygen Delivery Method Room Air Blood Pressure (90/60-120/80) 145/84 H 136/60 H 138/69 H Blood Pressure Mean (mm Hg) 104 85 92 Source Monitor Monitor Monitor Position Semi-Fowlers Blood Pressure Location Left Arm History Since Last Visit- (Skip if this is Patient's initial visit) Have you changed medications since your No No last visit? Any new allergies or adverse reactions No No Had a fall/change in ADL's that may No No increase risk of falls Signs or symptoms of abuse and/or No No neglect since last visit Have you been in the hospital since your No No last visit? Has dressing in place as prescribed Yes Yes Has compression in place as prescribed Yes Yes Has offloadiing in place as prescribed N/A N/A Experienced any changes in pain level or No No management Left Footwear Regular Shoe Right Footwear Regular Shoe Pain Scale: 0-10 Numeric Is Patient Pain Free? Yes Yes Yes Communication Assessment Preferred language Tajik Able to Read Yes Able to Write Yes Communication Tools None Right Hearing Abillity Normal Left Hearing Abillity Normal Visual Assistive Devices Glasses Teaching Assessment Preferences Verbal,Written, Demonstration Barriers to Learning None Readiness To Learn Good Willingness to Engage in Self Management Med Activies Readiness to Engage in Self Management Med Activities Anxiety Level Anxious Cooperation Cooperative Perception Coherent Interest in Health Problem Asks Questions Education Importance Acknowledges Need Does Patient Smoke tobacco or other No substances Smoking Status Never smoker Is Patient Diabetic No WC - Nurse 1 - General Ulcer Measurement Start: 07/27/23 10:32 Freq: Status: Active Protocol: Activity Type Activity Date Activity User E-sign Co-sign Detail Recorded Client Recorded Date Recorded By Document 07/27/23 10:32 DL Desktop 07/27/23 10:48 DL Document 08/03/23 08:44 KW Desktop 08/03/23 08:50 KW Document 08/10/23 09:56 DL Desktop 08/10/23 10:03 DL 07/27/23 08/03/23 08/10/23 10:32 08:44 09:56 Wound Center Nurse 1 4-left pool cluster -Current Size (cm) - Length 0.7 0.1 -Current Size (cm) - Width 2.7 0.1 -Current Size (cm) - Depth 0.1 0.1 -Total Square Cm 1.89 0.01 -Date of Last Picture (Recall this 08/03/23 field) -Photo Taken Yes -Exudate Amt Small None Present -Exudate Type Serosanguineous -Wound Margin Distinct, Flat & Intact Outline Attached -Granulation Amt Large (67-100%) Large (67-100%) -Granulation Quality [place] -Necrosis Amt Small (1-33%) -Necrotic Tissue Type Adherent Slough -Structure Exposed N/A -Texture (Karen-wound Skin Appearance) Assessed Scarring -Moisture (Karen-wound Skin Appearance) Assessed Dry/Scaly -Color (Karen-wound Skin Appearance) Assessed, Hemosiderin Erythema Staining -Temperature (Karen-wound Skin No Abnormality No Abnormality Appearance) (Pt Warm) (Pt Warm) -Tenderness on Palpation (Karen-wound No No Skin Appearance) -Ulcer Cleansing Soap and Water Soap and Water -Foul Odor after Cleansing No -Anesthetic Used 4% Lidocaine 4% Lidocaine Solution Solution #3 L Calf -Current Size (cm) - Length 10 11 10.9 -Current Size (cm) - Width 11 9.8 8.5 -Current Size (cm) - Depth 0.1 0.1 0.2 -Total Square Cm 110 107.8 92.65 -Date of Last Picture (Recall this 08/03/23 field) -Photo Taken Yes Yes Yes -Exudate Amt Large Medium Medium -Exudate Type Serosanguineous Serosanguineous Serosanguineous -Wound Margin Distinct, Distinct, Distinct, Outline Outline Outline Attached Attached Attached -Granulation Amt Large (67-100%) Large (67-100%) Large (67-100%) -Granulation Quality Red Red Red -Necrosis Amt Small (1-33%) Small (1-33%) -Necrotic Tissue Type Adherent Slough Adherent Slough -Structure Exposed N/A N/A -Texture (Karen-wound Skin Appearance) Localized Edema Assessed Scarring ,Scarring -Moisture (Karen-wound Skin Appearance) No Abnormality Assessed Dry/Scaly -Color (Karen-wound Skin Appearance) Hemosiderin Assessed, Hemosiderin Staining Erythema Staining -Temperature (Karen-wound Skin No Abnormality No Abnormality No Abnormality Appearance) (Pt Warm) (Pt Warm) (Pt Warm) -Tenderness on Palpation (Karen-wound No Skin Appearance) -Ulcer Cleansing Soap and Water Soap and Water Soap and Water -Foul Odor after Cleansing No No -Anesthetic Used 4% Lidocaine 4% Lidocaine 4% Lidocaine Solution Solution Solution Left Calf (cm) 42 39.7 39.4 Left Ankle (cm) 22.5 22.1 21.9 WC - Nurse 2 - General Ulcer CM Notes Start: 07/27/23 10:32 Freq: Status: Active Protocol: Activity Type Activity Date Activity User E-sign Co-sign Detail Recorded Client Recorded Date Recorded By Document 07/27/23 11:12 Laptop 07/27/23 11:27 JF Edit Result 07/27/23 11:12 JF (1) [id number] 07/27/23 13:12 Edit Result 07/27/23 11:12 JF (2) Laptop 07/28/23 16:12 Document 08/03/23 09:03 JF Laptop 08/03/23 09:09 Document 08/10/23 10:18 JF Laptop 08/10/23 10:29 JF (1) 4-left pool cluster - Tissue Removed Muscle => Subcutaneous (2) #3 L Calf - Debridement - Subq, 1st 20sq cm Yes => No 07/27/23 08/03/23 08/10/23 11:12 09:03 10:18 Wound Center Nurse 2 4-left pool cluster -Time 11:25 09:04 10:27 -Correct Patient Yes Yes Yes -Correct Side, Site, Position Yes Yes Yes -Correct Procedure Yes Yes Yes -Procedure Performed Yes Yes Yes -Type of Procedure Debridement Debridement Debridement -Clinical Debridement Subcutaneous Subcutaneous Subcutaneous -Tissue Removed Subcutaneous Subcutaneous Subcutaneous -Post Debridement (cm) - Length 3 1.0 0.7 -Post Debridement (cm) - Width 8 7.2 0.5 -Post Debridement (cm) - Depth 0.9 0.7 0.3 -Total Square (Post) (cm) 24 7.20 0.35 -Area of Debridement (cm) - Length 3 1.0 0.7 -Area of Debridement (cm) - Width 8 7.2 0.5 -Total Square (Area) (cm) 24 7.20 0.35 -Tunneling No No No -Undermining/Tunneling No No -Circular Undermining No No No -Wound/Ulcer Outcome Not Healed Not Healed Not Healed -Ulcer Cleansing Rinsed/ Rinsed/ Rinsed/ Irrigated with Irrigated with Irrigated with Saline Saline Saline -Foul Odor after Cleansing No No -Bioengineered Tissue No No No -Bleeding Controlled with Pressure Pressure Pressure -Treatment Response Procedure Procedure Procedure Tolerated Well Tolerated Well Tolerated Well -Offloading No No No -Debridement - Subq, 1st 20sq cm Yes No No -Debridement, SubQ, ea addt'l 20sq cm 7 or part thereof #3 L Calf -Time 11:12 09:04 10:20 -Correct Patient Yes Yes Yes -Correct Side, Site, Position Yes Yes Yes -Correct Procedure Yes Yes Yes -Procedure Performed Yes Yes Yes -Type of Procedure Debridement Debridement Debridement -Clinical Debridement Subcutaneous Subcutaneous Subcutaneous -Tissue Removed Subcutaneous Subcutaneous Subcutaneous -Post Debridement (cm) - Length 11.3 11 11.5 -Post Debridement (cm) - Width 12 10.8 9 -Post Debridement (cm) - Depth 0.1 0.2 0.2 -Total Square (Post) (cm) 135.6 118.8 103.5 -Area of Debridement (cm) - Length 11.3 11 11.5 -Area of Debridement (cm) - Width 12 10.8 9 -Total Square (Area) (cm) 135.6 118.8 103.5 -Tunneling No No No -Undermining/Tunneling No No No -Circular Undermining No No No -Wound/Ulcer Outcome Not Healed Not Healed Not Healed -Ulcer Cleansing Rinsed/ Rinsed/ Rinsed/ Irrigated with Irrigated with Irrigated with Saline Saline Saline -Foul Odor after Cleansing No No No -Bioengineered Tissue No No No -Bleeding Controlled with Pressure Pressure Pressure -Treatment Response Procedure Procedure Procedure Tolerated Well Tolerated Well Tolerated Well -Offloading No No No -Debridement - Subq, 1st 20sq cm No Yes Yes -Debridement, SubQ, ea addt'l 20sq cm 6 5 or part thereof Pain Scale: 0-10 Numeric Is Patient Pain Free? Yes Yes Yes WC - Nurse 3 - General Ulcer D/C NN Start: 07/27/23 10:32 Freq: Status: Active Protocol: Activity Type Activity Date Activity User E-sign Co-sign Detail Recorded Client Recorded Date Recorded By Document 07/27/23 11:53 KW Desktop 07/27/23 11:55 KW Document 08/03/23 09:25 BM Desktop 08/03/23 09:26 BMF Document 08/10/23 10:45 DL Desktop 08/10/23 10:46 DL 07/27/23 08/03/23 08/10/23 11:53 09:25 10:45 Wound Care Center Nurse 3 4-left pool cluster -Ulcer Cleansing Rinsed/ Rinsed/ Soap and Water Irrigated with Irrigated with Saline Saline -Foul Odor after Cleansing No No No -Primary Dressing Applied C Hydrogel ($) Aquacel Extra -Other Dressing hydrogel -Primary Dressing Covered/Secured with Dry Gauze & Dry Gauze & Dry Gauze & Roll Gauze, Roll Gauze, Roll Gauze, Secured with Secured with Secured with Tape Tape Tape -Aquacel Extra 1 #3 L Calf -Ulcer Cleansing Rinsed/ Rinsed/ Soap and Water Irrigated with Irrigated with Saline Saline -Foul Odor after Cleansing No No -Primary Dressing Applied Fibracol Plus Fibracol Plus Fibracol Plus 4x4 4x4 4x4 -Other Dressing abd -Primary Dressing Covered/Secured with Dry Gauze & Dry Gauze & Dry Gauze & Roll Gauze, Roll Gauze, Roll Gauze, Secured with Secured with Secured with Tape Tape Tape -Other Covering tubigrip -Fibracol Plus 4x4 1 3 1 Left -Tubular Bandage Double Layer Double Layer -Size of Tubigrip Used Size F Size F -Size F ($) 2 2 Treatment Response Procedure Procedure Procedure Tolerated Well Tolerated Well Tolerated Well Pain Scale: 0-10 Numeric Is Patient Pain Free? Yes Yes Yes WC - Visit Discharge Discharge Condition Stable Stable Stable Ambulatory Status Ambulatory Ambulatory,Cane Ambulatory,Cane Transportation Private Auto Private Auto Private Auto Additional Wound Wound debrided: #4 left anterior leg cluster Laterality: Left Type of Debridement: Excisional debridement Depth: Down to and including healthy tissue and in the subcutaneous layer Percentage of wound debrided: 100 Instrument Used: 3mm curette Tissue Removed: Non viable tissue and slough Severity: Limited To Skin Breakdown Amount of bleeding with debridement: Mild Bleeding Controlled with: Compression and gauze Patient tolerated procedure: Patient tolerated procedure well Operative Diagnosis: Couple tunnels after wound closure 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 She states she is doing well at home after being discharged from the [facility]. Wound care - To the left anterior leg tunnel areas, place thin strip of Aquacel- Ag into the two tunnel areas covered with gauze/ABD. The left posterolateral leg ulcer place Fibrocol + covered with ABD. May secure the ABDs to both areas wit Kerlix or cling wrap. Compression - Double tubigrip. Stressed importance of keeping legs elevated when sitting to help prevent edema. Wound cultures obtained 07/27/23 which were positive for Pseudomonas aeruginosa, MRSA, Corynebacterium striatum, and Anaerobic cocci. She has been started on Levaquin and Metronidazole. She will need Linezolid to treat the MRSA, but I would like to wait until she completes one of the other antibiotics before starting her on that. Instructed her to take a probiotic while on the antibiotics. She would benefit from an advanced skin substitute, such as Theraskin, to help expedite wound healing of this ulcer. With this being on her lower leg, it will take longer for this ulcer to heal, so an advanced skin product would really be beneficial. Will apply to her insurance company for approval. Follow up one week for a courtesy visit with another provider, since I will be out of town.
[2023-08-18 13:41] VITALS: BP 137/68; PULSE 83; RESP 20; TEMP 36.9; BMI 27.6
--- NOTE | 2023-08-18 15:58 | PCM.WC.PN ---
History of Present Illness Date of Service: 08/18/23 Chief Complaint: Left lateral leg ulcer that was initially caused by trauma from bumping leg on edge of car. History of Wound: Patient is 83 year female who presents for further evaluation of an ulcer on her left posterolateral leg. She initially bumped her leg on her car frame when removing something from her car on 05/22/24 and needed sutures to her left anterior leg. She then developed increased pain, swelling and a hematoma to her left leg and was seen in the ED very early on 05/27/23. She is on chronic anticoagulation for Afib, her INR was 5.3 at that time. She was discharged home with follow up with her PCP later that day. She returned to the ED via squad later that day after she experienced a large amount of bleeding. The hematoma was evacuated in the ED under sedation. She was admitted to the hospital and she required transfusion of 1 unit PRBC when her hemoglobin dropped from 11 to 6.9. She was transferred to [facility] for a little while. She comes in today for further evaluation of her left posterolateral leg ulcer from a hematoma. She states she is doing well at home. Her daughter is helping her with her dressing changes. Wound care - Fibracol. 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 Wound cultures obtained 07/27/23 which were positive for Pseudomonas aeruginosa, MRSA, Corynebacterium striatum, and Anaerobic cocci. She was placed on Flagyl and finished them. She was placed on Levaquin and is tolerating them thus far. She was placed on Linezolid and stated she had some visual problems and stopped the antibiotic. Will send in script for Cleocin. Instructed her to take a probiotic while on the antibiotics. Today she denies fever, chills, nausea or vomiting. Her appetite is good. Patient was interested in advanced skin substitute grafts to help the ulcer to heal. She has been approved for Thera-Skin. Progress of Wound: Left posterior leg ulcer shows granulation tissue with some exudate. Left anterior leg ulcer shows some epithelialization. Objective Data Objective Data Vital Signs: Vital Signs Temp Pulse Resp BP O2 Del Method 98.4 F 83 20 H 137/68 H Room Air 08/18/23 13:41 08/18/23 13:41 08/18/23 13:41 08/18/23 13:41 08/03/23 08:44 Oxygen Delivery Method Room Air Weight: 170 lb 12.573 oz Body Mass Index (BMI) 27.6 Lab / Micro Data Attestation: I reviewed the patient's lab results. Micro: Microbiology 07/27/23 11:25 Wound - Leg, Left Gram Stain - Final 07/27/23 11:25 Wound - Leg, Left Wound Culture - Final Pseudomonas aeruginosa Meth. resistant Staph. aureus Corynebacterium striatum 07/27/23 11:25 Wound - Leg, Left Anaerobic Culture - Final Anaerobic cocci She was placed on Flagyl and has finished them. She was placed on Levaquin and is tolerating them thus far. She was placed on Linezolid, but she had issues tolerating the medication along with some visual issues and she stopped them. Will call in [facility]. Charges/Coding Procedures Integumentary [id number]: [id number] Humera subq tissue 20 sq cm/< (ICD-10 - L97.902, S80.12xS, T14.8xxA, Z79.01) Add On Codes: 29949 Humera subq tissue add-on (x2 Units) (ICD-10 - L97.902, S80.12xS, T14.8xxA, Z79.01) Debridement Note Debridement Note Wound debrided: #3 - Left posterolateral leg ulcer Laterality: Left Wound Grade/Stage: Grade III Type of Debridement: Excisional debridement Anesthesia Used: 5% Lidocaine Gel and Cetacaine Depth: Down to and including healthy tissue and in the subcutaneous layer Percentage of wound debrided: 100 Instrument Used: 7mm curette Tissue Removed: subcutaneous tissue, senescent cells, increased bioburden with exudate Severity: Fat Layer Exposed Amount of bleeding with debridement: Mild Bleeding Controlled with: Pressure and Compression and gauze Patient tolerated procedure: Patient tolerated procedure well Debridement Free Text: With the amount of bioburden and exudate present, will hold off on Thera-Skin. Recent culture from 07/27/23 was positive for Pseudomonas and MRSA which can be detrimental to healing of grafts. Would fully treat for 6 weeks before applying Thera-Skin, around 09/07/23. Post-Debridement Measurements and Additional Note: Post-Debridement Measurements/Treatment WC - Nurse 1 - General Ulcer Assessment Start: 07/27/23 10:32 Freq: Status: Active Protocol: [place] Activity Type Activity Date Activity User E-sign Co-sign Detail Recorded Client Recorded Date Recorded By Document 07/27/23 10:32 DL Desktop 07/27/23 10:48 DL Document 08/03/23 08:44 KW Desktop 08/03/23 08:50 KW Document 08/10/23 09:56 DL Desktop 08/10/23 10:03 DL Document 08/18/23 13:41 DL Desktop 08/18/23 13:52 DL 07/27/23 08/03/23 08/10/23 10:32 08:44 09:56 WC - Today's Visit Information Type of service Initial Visit Follow-up Visit Follow-up Visit (Physician/OIL PIPELINE OPERATOR (Physician/OIL PIPELINE OPERATOR ) ) Arrival Mode Ambulatory,Cane Ambulatory,Cane Ambulatory,Cane Transfer Assistance None None Patient Identification Verified (Name & Yes Yes Yes ) Patient Requires Transmission-Based No No Precautions Height and Weight Height 5 ft 6 in Weight 170 lb 12.573 oz Weight in Pounds 170.8 lbs Body Mass Index (BMI) 27.6 27.6 27.6 BMI Classification Overweight Overweight Overweight BSA - Hugh 1.87 Vital Signs Temperature (97.8 F-99.1 F) 97 F L 97.9 F 97.2 F L Temperature Source Temporal Temporal Temporal Pulse Rate (60-100) 88 94 94 Pulse Location Monitor Monitor Monitor Respiratory Rate (12-18) 20 H 18 20 H Respiratory rate source Observation Observation Observation Oxygen Delivery Method Room Air Blood Pressure (90/60-120/80) 145/84 H 136/60 H 138/69 H Blood Pressure Mean (mm Hg) 104 85 92 Source Monitor Monitor Monitor Position Semi-Fowlers Blood Pressure Location Left Arm History Since Last Visit- (Skip if this is Patient's initial visit) Have you changed medications since your No No last visit? Any new allergies or adverse reactions No No Had a fall/change in ADL's that may No No increase risk of falls Signs or symptoms of abuse and/or No No neglect since last visit Have you been in the hospital since your No No last visit? Has dressing in place as prescribed Yes Yes Has compression in place as prescribed Yes Yes Has offloadiing in place as prescribed N/A N/A Experienced any changes in pain level or No No management Left Footwear Regular Shoe Right Footwear Regular Shoe Pain Scale: 0-10 Numeric Is Patient Pain Free? Yes Yes Yes Communication Assessment Preferred language Greenlandic Able to Read Yes Able to Write Yes Communication Tools None Right Hearing Abillity Normal Left Hearing Abillity Normal Visual Assistive Devices Glasses Teaching Assessment Preferences Verbal,Written, Demonstration Barriers to Learning None Readiness To Learn Good Willingness to Engage in Self Management Med Activies Readiness to Engage in Self Management Med Activities Anxiety Level Anxious Cooperation Cooperative Perception Coherent Interest in Health Problem Asks Questions Education Importance Acknowledges Need Does Patient Smoke tobacco or other No substances Smoking Status Never smoker Is Patient Diabetic No 08/18/23 13:41 WC - Today's Visit Information Type of service Follow-up Visit (Physician/OIL PIPELINE OPERATOR ) Arrival Mode Ambulatory,Cane Transfer Assistance None Patient Identification Verified (Name & Yes ) Patient Requires Transmission-Based No Precautions Height and Weight Height Weight Weight in Pounds Body Mass Index (BMI) 27.6 BMI Classification Overweight BSA - Hugh Vital Signs Temperature (97.8 F-99.1 F) 98.4 F Temperature Source Temporal Pulse Rate (60-100) 83 Pulse Location Monitor Respiratory Rate (12-18) 20 H Respiratory rate source Observation Oxygen Delivery Method Blood Pressure (90/60-120/80) 137/68 H Blood Pressure Mean (mm Hg) 91 Source Monitor Position Blood Pressure Location History Since Last Visit- (Skip if this is Patient's initial visit) Have you changed medications since your Yes last visit? Any new allergies or adverse reactions No Had a fall/change in ADL's that may No increase risk of falls Signs or symptoms of abuse and/or No neglect since last visit Have you been in the hospital since your No last visit? Has dressing in place as prescribed Yes Has compression in place as prescribed Yes Has offloadiing in place as prescribed N/A Experienced any changes in pain level or No management Left Footwear Right Footwear Pain Scale: 0-10 Numeric Is Patient Pain Free? Yes Communication Assessment Preferred language Able to Read Able to Write Communication Tools Right Hearing Abillity Left Hearing Abillity Visual Assistive Devices Teaching Assessment Preferences Barriers to Learning Readiness To Learn Willingness to Engage in Self Management Activies Readiness to Engage in Self Management Activities Anxiety Level Cooperation Perception Interest in Health Problem Education Importance Does Patient Smoke tobacco or other substances Smoking Status Is Patient Diabetic WC - Nurse 1 - General Ulcer Measurement Start: 07/27/23 10:32 Freq: Status: Active Protocol: Activity Type Activity Date Activity User E-sign Co-sign Detail Recorded Client Recorded Date Recorded By Document 07/27/23 10:32 DL Desktop 07/27/23 10:48 DL Document 08/03/23 08:44 KW Desktop 08/03/23 08:50 KW Document 08/10/23 09:56 DL Desktop 08/10/23 10:03 DL Document 08/18/23 13:41 DL Desktop 08/18/23 13:52 DL 07/27/23 08/03/23 08/10/23 10:32 08:44 09:56 Wound Center Nurse 1 4-left pool cluster -Current Size (cm) - Length 0.7 0.1 -Current Size (cm) - Width 2.7 0.1 -Current Size (cm) - Depth 0.1 0.1 -Total Square Cm 1.89 0.01 -Date of Last Picture (Recall this 08/03/23 field) -Photo Taken Yes -Exudate Amt Small None Present -Exudate Type Serosanguineous -Wound Margin Distinct, Flat & Intact Outline Attached -Granulation Amt Large (67-100%) Large (67-100%) -Granulation Quality Red [place] -Necrosis Amt Small (1-33%) -Necrotic Tissue Type Adherent Slough -Structure Exposed N/A -Texture (Karen-wound Skin Appearance) Assessed Scarring -Moisture (Karen-wound Skin Appearance) Assessed Dry/Scaly -Color (Karen-wound Skin Appearance) Assessed, Hemosiderin Erythema Staining -Temperature (Karen-wound Skin No Abnormality No Abnormality Appearance) (Pt Warm) (Pt Warm) -Tenderness on Palpation (Karen-wound No No Skin Appearance) -Ulcer Cleansing Soap and Water Soap and Water -Foul Odor after Cleansing No -Anesthetic Used 4% Lidocaine 4% Lidocaine Solution Solution #3 L Calf -Current Size (cm) - Length 10 11 10.9 -Current Size (cm) - Width 11 9.8 8.5 -Current Size (cm) - Depth 0.1 0.1 0.2 -Total Square Cm 110 107.8 92.65 -Date of Last Picture (Recall this 08/03/23 field) -Photo Taken Yes Yes Yes -Exudate Amt Large Medium Medium -Exudate Type Serosanguineous Serosanguineous Serosanguineous -Wound Margin Distinct, Distinct, Distinct, Outline Outline Outline Attached Attached Attached -Granulation Amt Large (67-100%) Large (67-100%) Large (67-100%) -Granulation Quality Red Red Red -Necrosis Amt Small (1-33%) Small (1-33%) -Necrotic Tissue Type Adherent Slough Adherent Slough -Structure Exposed N/A N/A -Texture (Karen-wound Skin Appearance) Localized Edema Assessed Scarring ,Scarring -Moisture (Karen-wound Skin Appearance) No Abnormality Assessed Dry/Scaly -Color (Karen-wound Skin Appearance) Hemosiderin Assessed, Hemosiderin Staining Erythema Staining -Temperature (Karen-wound Skin No Abnormality No Abnormality No Abnormality Appearance) (Pt Warm) (Pt Warm) (Pt Warm) -Tenderness on Palpation (Karen-wound No Skin Appearance) -Ulcer Cleansing Soap and Water Soap and Water Soap and Water -Foul Odor after Cleansing No No -Anesthetic Used 4% Lidocaine 4% Lidocaine 4% Lidocaine Solution Solution Solution Left Calf (cm) 42 39.7 39.4 Left Ankle (cm) 22.5 22.1 21.9 08/18/23 13:41 Wound Center Nurse 1 4-left pool cluster -Current Size (cm) - Length 0.4 -Current Size (cm) - Width 0.6 -Current Size (cm) - Depth 0.2 -Total Square Cm 0.24 -Date of Last Picture (Recall this field) -Photo Taken -Exudate Amt Small -Exudate Type Serosanguineous -Wound Margin Distinct, Outline Attached -Granulation Amt Small (1-33%) -Granulation Quality Red -Necrosis Amt Small (1-33%) -Necrotic Tissue Type Adherent Slough -Structure Exposed N/A -Texture (Karen-wound Skin Appearance) Scarring -Moisture (Karen-wound Skin Appearance) No Abnormality -Color (Karen-wound Skin Appearance) Hemosiderin Staining -Temperature (Karen-wound Skin No Abnormality Appearance) (Pt Warm) -Tenderness on Palpation (Karen-wound No Skin Appearance) -Ulcer Cleansing Soap and Water -Foul Odor after Cleansing No -Anesthetic Used 5% Lidocaine Gel #3 L Calf -Current Size (cm) - Length 5 -Current Size (cm) - Width 10 -Current Size (cm) - Depth 0.2 -Total Square Cm 50 -Date of Last Picture (Recall this field) -Photo Taken -Exudate Amt Medium -Exudate Type Serosanguineous -Wound Margin Distinct, Outline Attached -Granulation Amt Large (67-100%) -Granulation Quality Red -Necrosis Amt Small (1-33%) -Necrotic Tissue Type Adherent Slough -Structure Exposed N/A -Texture (Karen-wound Skin Appearance) Localized Edema ,Scarring -Moisture (Karen-wound Skin Appearance) Maceration -Color (Karen-wound Skin Appearance) Hemosiderin Staining -Temperature (Karen-wound Skin No Abnormality Appearance) (Pt Warm) -Tenderness on Palpation (Karen-wound No Skin Appearance) -Ulcer Cleansing Soap and Water -Foul Odor after Cleansing No -Anesthetic Used 4% Lidocaine Solution Left Calf (cm) 40 Left Ankle (cm) 21.5 WC - Nurse 2 - General Ulcer CM Notes Start: 07/27/23 10:32 Freq: Status: Active Protocol: Activity Type Activity Date Activity User E-sign Co-sign Detail Recorded Client Recorded Date Recorded By Document 07/27/23 11:12 Laptop 07/27/23 11:27 Edit Result 07/27/23 11:12 JF (1) [id number] 07/27/23 13:12 JF Edit Result 07/27/23 11:12 JF (2) Laptop 07/28/23 16:12 Document 08/03/23 09:03 JF Laptop 08/03/23 09:09 JF Document 08/10/23 10:18 JF Laptop 08/10/23 10:29 Document 08/18/23 14:45 MW Desktop 08/18/23 15:08 MW (1) 4-left pool cluster - Tissue Removed Muscle => Subcutaneous (2) #3 L Calf - Debridement - Subq, 1st 20sq cm Yes => No 07/27/23 08/03/23 08/10/23 11:12 09:03 10:18 Wound Center Nurse 2 4-left pool cluster -Time 11:25 09:04 10:27 -Correct Patient Yes Yes Yes -Correct Side, Site, Position Yes Yes Yes -Correct Procedure Yes Yes Yes -Procedure Performed Yes Yes Yes -Type of Procedure Debridement Debridement Debridement -Clinical Debridement Subcutaneous Subcutaneous Subcutaneous -Tissue Removed Subcutaneous Subcutaneous Subcutaneous -Post Debridement (cm) - Length 3 1.0 0.7 -Post Debridement (cm) - Width 8 7.2 0.5 -Post Debridement (cm) - Depth 0.9 0.7 0.3 -Total Square (Post) (cm) 24 7.20 0.35 -Area of Debridement (cm) - Length 3 1.0 0.7 -Area of Debridement (cm) - Width 8 7.2 0.5 -Total Square (Area) (cm) 24 7.20 0.35 -Tunneling No No No -Undermining/Tunneling No No -Circular Undermining No No No -Wound/Ulcer Outcome Not Healed Not Healed Not Healed -Ulcer Cleansing Rinsed/ Rinsed/ Rinsed/ Irrigated with Irrigated with Irrigated with Saline Saline Saline -Foul Odor after Cleansing No No -Bioengineered Tissue No No No -Bleeding Controlled with Pressure Pressure Pressure -Treatment Response Procedure Procedure Procedure Tolerated Well Tolerated Well Tolerated Well -Offloading No No No -Debridement - Subq, 1st 20sq cm Yes No No -Debridement, SubQ, ea addt'l 20sq cm 7 or part thereof #3 L Calf -Time 11:12 09:04 10:20 -Correct Patient Yes Yes Yes -Correct Side, Site, Position Yes Yes Yes -Correct Procedure Yes Yes Yes -Procedure Performed Yes Yes Yes -Type of Procedure Debridement Debridement Debridement -Clinical Debridement Subcutaneous Subcutaneous Subcutaneous -Tissue Removed Subcutaneous Subcutaneous Subcutaneous -Post Debridement (cm) - Length 11.3 11 11.5 -Post Debridement (cm) - Width 12 10.8 9 -Post Debridement (cm) - Depth 0.1 0.2 0.2 -Total Square (Post) (cm) 135.6 118.8 103.5 -Area of Debridement (cm) - Length 11.3 11 11.5 -Area of Debridement (cm) - Width 12 10.8 9 -Total Square (Area) (cm) 135.6 118.8 103.5 -Tunneling No No No -Undermining/Tunneling No No No -Circular Undermining No No No -Wound/Ulcer Outcome Not Healed Not Healed Not Healed -Ulcer Cleansing Rinsed/ Rinsed/ Rinsed/ Irrigated with Irrigated with Irrigated with Saline Saline Saline -Foul Odor after Cleansing No No No -Bioengineered Tissue No No No -Type of Bioengineered Tissue -Bleeding Controlled with Pressure Pressure Pressure -Treatment Response Procedure Procedure Procedure Tolerated Well Tolerated Well Tolerated Well -Offloading No No No -Debridement - Subq, 1st 20sq cm No Yes Yes -Debridement, SubQ, ea addt'l 20sq cm 6 5 or part thereof Pain Scale: 0-10 Numeric Is Patient Pain Free? Yes Yes Yes 08/18/23 14:45 Wound Center Nurse 2 4-left pool cluster -Time 14:46 -Correct Patient Yes -Correct Side, Site, Position Yes -Correct Procedure Yes -Procedure Performed No -Type of Procedure -Clinical Debridement -Tissue Removed -Post Debridement (cm) - Length -Post Debridement (cm) - Width -Post Debridement (cm) - Depth -Total Square (Post) (cm) -Area of Debridement (cm) - Length -Area of Debridement (cm) - Width -Total Square (Area) (cm) -Tunneling No -Undermining/Tunneling No -Circular Undermining No -Wound/Ulcer Outcome Not Healed -Ulcer Cleansing Rinsed/ Irrigated with Saline -Foul Odor after Cleansing No -Bioengineered Tissue No -Bleeding Controlled with -Treatment Response -Offloading -Debridement - Subq, 1st 20sq cm -Debridement, SubQ, ea addt'l 20sq cm or part thereof #3 L Calf -Time 14:46 -Correct Patient Yes -Correct Side, Site, Position Yes -Correct Procedure Yes -Procedure Performed Yes -Type of Procedure Debridement -Clinical Debridement Subcutaneous -Tissue Removed Subcutaneous -Post Debridement (cm) - Length 5.2 -Post Debridement (cm) - Width 10.2 -Post Debridement (cm) - Depth 0.2 -Total Square (Post) (cm) 53.04 -Area of Debridement (cm) - Length 5.2 -Area of Debridement (cm) - Width 10.2 -Total Square (Area) (cm) 53.04 -Tunneling No -Undermining/Tunneling No -Circular Undermining No -Wound/Ulcer Outcome Not Healed -Ulcer Cleansing Rinsed/ Irrigated with Saline -Foul Odor after Cleansing No -Bioengineered Tissue Yes -Type of Bioengineered Tissue [place] -Bleeding Controlled with Pressure -Treatment Response Procedure Tolerated Well -Offloading No -Debridement - Subq, 1st 20sq cm Yes -Debridement, SubQ, ea addt'l 20sq cm 2 or part thereof Pain Scale: 0-10 Numeric Is Patient Pain Free? Yes WC - Nurse 3 - General Ulcer D/C NN Start: 07/27/23 10:32 Freq: Status: Active Protocol: Activity Type Activity Date Activity User E-sign Co-sign Detail Recorded Client Recorded Date Recorded By Document 07/27/23 11:53 KW Desktop 07/27/23 11:55 KW Document 08/03/23 09:25 BMF Desktop 08/03/23 09:26 BMF Document 08/10/23 10:45 DL Desktop 08/10/23 10:46 DL Document 08/18/23 15:23 DL Desktop 08/18/23 15:26 DL 07/27/23 08/03/23 08/10/23 11:53 09:25 10:45 Wound Care Center Nurse 3 4-left pool cluster -Ulcer Cleansing Rinsed/ Rinsed/ Soap and Water Irrigated with Irrigated with Saline Saline -Foul Odor after Cleansing No No No -Primary Dressing Applied C Hydrogel ($) Aquacel Extra -Other Dressing hydrogel -Primary Dressing Covered/Secured with Dry Gauze & Dry Gauze & Dry Gauze & Roll Gauze, Roll Gauze, Roll Gauze, Secured with Secured with Secured with Tape Tape Tape -Aquacel Extra 1 -Fibracol Plus 4x4 #3 L Calf -Ulcer Cleansing Rinsed/ Rinsed/ Soap and Water Irrigated with Irrigated with Saline Saline -Foul Odor after Cleansing No No -Primary Dressing Applied Fibracol Plus Fibracol Plus Fibracol Plus 4x4 4x4 4x4 -Other Dressing abd -Primary Dressing Covered/Secured with Dry Gauze & Dry Gauze & Dry Gauze & Roll Gauze, Roll Gauze, Roll Gauze, Secured with Secured with Secured with Tape Tape Tape -Other Covering tubigrip -Fibracol Plus 4x4 1 3 1 Left -Tubular Bandage Double Layer Double Layer -Size of Tubigrip Used Size F Size F -Size F ($) 2 2 Treatment Response Procedure Procedure Procedure Tolerated Well Tolerated Well Tolerated Well Pain Scale: 0-10 Numeric Is Patient Pain Free? Yes Yes Yes WC - Visit Discharge Discharge Condition Stable Stable Stable Ambulatory Status Ambulatory Ambulatory,Cane Ambulatory,Cane Transportation Private Auto Private Auto Private Auto 08/18/23 15:23 Wound Care Center Nurse 3 4-left pool cluster -Ulcer Cleansing Rinsed/ Irrigated with Saline -Foul Odor after Cleansing No -Primary Dressing Applied Fibracol Plus 4x4 -Other Dressing -Primary Dressing Covered/Secured with Dry Gauze & Roll Gauze, Secured with Tape -Aquacel Extra -Fibracol Plus 4x4 2 #3 L Calf -Ulcer Cleansing Rinsed/ Irrigated with Saline -Foul Odor after Cleansing No -Primary Dressing Applied -Other Dressing fibricol -Primary Dressing Covered/Secured with Dry Gauze & Roll Gauze, Secured with Tape -Other Covering -Fibracol Plus 4x4 Left -Tubular Bandage Double Layer -Size of Tubigrip Used Size F -Size F ($) 2 Treatment Response Procedure Tolerated Well Pain Scale: 0-10 Numeric Is Patient Pain Free? Yes WC - Visit Discharge Discharge Condition Stable Ambulatory Status Ambulatory Transportation Private Auto Additional Wound Wound debrided: #4 left anterior leg cluster Laterality: Left Wound Grade/Stage: 2 Tissue Removed: Non viable tissue and slough Operative Diagnosis: No debridement needed today as some epithelialization present. 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 Compression - Double tubigrip. Stressed importance of keeping legs elevated when sitting to help prevent edema. Wound cultures obtained 07/27/23 which were positive for Pseudomonas aeruginosa, MRSA, Corynebacterium striatum, and Anaerobic cocci. She was placed on Flagyl and finished them. She was placed on Levaquin and is tolerating them thus far. She was placed on Linezolid and stated she had some visual problems and stopped the antibiotic. Will send in script for Tiffany. Instructed her to take a probiotic while on the antibiotics. She would benefit from an advanced skin substitute, such as Thera-Skin, to help expedite wound healing of this ulcer. With this being on her lower leg, it usually takes longer to heal. She has been approved for Thera-Skin. With the amount of increased bioburden and exudate I did not apply any Thera-Skin today. Pseudomonas and MRSA can be detrimental for grafts. Would complete 6 weeks of antibiotics before proceeding with Thera-Skin, around 09/07/23. Followup one week.
== END 2023-08-23 23:59 | disposition home or self-care (01) ==
LOC: WC 13:30
PROVIDERS: PCP Family Medicine Geriatric Medicine; Referring Provider Family Medicine Geriatric Medicine; Visit Provider Nurse Practitioner Family
DX: L97.902 Non-pressure chronic ulcer of unspecified part of unspecified lower leg with fat layer exposed (principal); I48.91 Unspecified atrial fibrillation; B95.62 Methicillin resistant Staphylococcus aureus infection as the cause of diseases classified elsewhere; B96.5 Pseudomonas (aeruginosa) (mallei) (pseudomallei) as the cause of diseases classified elsewhere; I25.10 Atherosclerotic heart disease of native coronary artery without angina pectoris; Z79.01 Long term (current) use of 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s; Z87.891 Personal history of nicotine dependence; I10 Essential (primary) hypertension; E78.5 Hyperlipidemia, unspecified; S80.12XS Contusion of left lower leg, sequela; T14.8XXA Other injury of unspecified body region, initial encounter; Z95.0 Presence of cardiac pacemaker; Z86.718 Personal history of other venous thrombosis and embolism
CPT/HCPCS: 11042; 11045; 87070; 87075; 87077; 87186; 87205; 99214; G0463

== ENCOUNTER 2023-08-31 10:56 | Outpatient (CLI) | payer MEDICARE, OTHER, SELFPAY ==
[2023-08-31 11:13] LABS: Hematocrit 36.9 % (37-47); Hemoglobin 11.4 g/dL (12.0-15.0)
== END 2023-08-31 23:59 | disposition home or self-care (01) ==
LOC: LAB 10:57
PROVIDERS: PCP Family Medicine Geriatric Medicine; Referring Provider Family Medicine Geriatric Medicine; Visit Provider Family Medicine Geriatric Medicine
DX: D50.9 Iron deficiency anemia, unspecified (principal); L97.822 Non-pressure chronic ulcer of other part of left lower leg with fat layer exposed; M06.9 Rheumatoid arthritis, unspecified; I48.11 Longstanding persistent atrial fibrillation; Z79.01 Long term (current) use of 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s; S80.12XS Contusion of left lower leg, sequela; W20.8XXD Other cause of strike by thrown, projected or falling object, subsequent encounter; Z95.0 Presence of cardiac pacemaker; I10 Essential (primary) hypertension; E78.5 Hyperlipidemia, unspecified; Z86.718 Personal history of other venous thrombosis and embolism
CPT/HCPCS: 11042; 11045; 36415; 85014; 85018

== ENCOUNTER 2023-09-08 11:26 | Inpatient (IN) | payer MEDICARE, OTHER, SELFPAY ==
[2023-09-08] VITALS (7 sets, daily range): BP systolic 159–184; BP diastolic 87–105; PULSE 20–86; RESP 16–80; TEMP 36.3–36.6; O2SAT 94–100; BMI 26.8
[2023-09-08] MEDS: Morphine 4 MG/ML Syringe IV ×2 (12:51→14:57)
[2023-09-08] MEDS: Ondansetron 4 MG/2 ML Vial IV ×2 (12:51→18:52)
[2023-09-08 13:09] LABS: Absolute Lymphocyte Count 0.74 X10^3/uL (0.83-4.51); Absolute Neutrophil Count 9.3 X10^3/uL (2.0-7.7); Basophil# 0.03 X10^3/uL; Basophil% 0.3 % (0-1); Eosinophil# 0.03 X10^3/uL; Eosinophils% 0.3 % (0-5); Hematocrit 37.9 % (37-47); Lymphocyte # 0.74 X10^3/ul (0.83-4.51); Lymphocyte % 7.1 % (19-41); Mean Corp Hgb Conc 31.7 g/dL (32-36); Mean Corpuscular Volume 85.2 fL (81-99); Mean Platelet Vol. 10.3 fl (6.2-12.0); Monocyte# 0.37 X10^3/uL; Monocyte% 3.5 % (0-10); NRBC Flagged by Analyzer 0 % (0-5); Neutrophil # 9.25 X10^3/uL (2.7-7.7); Neutrophil % 88.5 % (47-70); Platelet Count 254 K/mm3 (150-450); RBC Distribution Width CV 18.8 % (11.6-14.6); RBC Distribution Width SD 58.5 fl (35.1-43.9); Red Blood Count 4.45 M/mm3 (4.2-5.4); White Blood Count 10.5 K/mm3 (4.4-11.0)
[2023-09-08 13:12] LABS: Bacteria 0 SEEN /hpf (None Seen); Mucous, Urine 0 SEEN /hpf (<or=2+); Red Blood Cells-Urine 0 SEEN /hpf (0-5); Squamous Epithelial Cells - UA 0 SEEN /hpf (5-10)
[2023-09-08 13:17] LABS: Color, Urine Yellow (Yellow); Glucose, Dipstick Normal (Normal); Ketone-Dipstick 15 mg/dl (Negative); Leukocyte Esterase-Dipstick 25 /ul (Negative); Nitrite-Dipstick Negative (Negative); Occult Blood-Urine Negative /ul (Negative); Protein-Dipstick 30 mg/dl (Negative); Specific Gravity, Urine 1.015 (1.002-1.030); Urine Bilirubin Dipstick Negative (Negative); Urine Clarity Clear (Clear); Urine Urobilinogen Normal (Normal)
[2023-09-08 13:26] LABS: Hyaline Cast 5-10 SEEN /lpf (0-5); White Blood Cells 0-5 SEEN /hpf (0-5)
[2023-09-08 13:30] LABS: ALB/GLOB Ratio 0.8 RATIO (0.9-2.4); AST(SGOT) 36 U/L (15-37); Alanine Aminotransfer ALT/SGPT 19 U/L (13-56); Albumin, Serum 3.2 g/dL (3.2-5.0); Alkaline Phosphatase 77 U/L (45-117); Anion Gap 5 (5-15); BUN 21 mg/dL (7-18); Chloride 106 mmol/L (98-107); Creatinine, Serum 0.88 mg/dL (0.55-1.02); EST Glomerular Filtration Rate 66 mL/min (>60); Est Glom Filt Rate - Afr Amer 80 mL/min (>60); Estimated Creatinine Clearance 52.01 ml/min; Globulin 4.2 g/dL (2.2-4.2); Glucose 110 mg/dL (74-106); Lipase 22 U/L (13-75); Potassium 4.8 mmol/L (3.5-5.1); Protein, Total 7.4 g/dL (6.4-8.2); Sodium Level 138 mmol/L (136-145)
[2023-09-08] MEDS: Oxymetazoline 0.05% 1 SPRAY SPRAY.BTL 2 SPRAY NASAL (16:13)
[2023-09-08] MEDS: Morphine 2 MG/ML Syringe IV ×2 (18:39→22:31)
[2023-09-08] MEDS: Ampicillin/Sulbactam 3 GM in 0.9% Normal Saline (100mL MB+) 100 ML IV ×2 (18:51→23:32)
[2023-09-08] MEDS: 0.9% Normal Saline (1000mL) 1,000 ML 75 ML IV (18:55)
[2023-09-08] MEDS: proCHLORPERazine 10 MG/2 ML Vial 5 MG IV (22:31)
[2023-09-08] MEDS: Pantoprazole Sodium 40 MG in 0.9% Normal Saline (100mL MB+) 100 ML 330 MG IV (22:31)
[2023-09-09] VITALS (13 sets, daily range): BP systolic 141–172; BP diastolic 71–85; PULSE 80–82; RESP 16–18; TEMP 36.6–36.9; O2SAT 90–98; BMI 26.6; BMI 26.8
[2023-09-09] MEDS: 0.9% Normal Saline (1000mL) 1,000 ML 75 ML IV (02:58)
[2023-09-09] MEDS: Ampicillin/Sulbactam 3 GM in 0.9% Normal Saline (100mL MB+) 100 ML IV ×2 (05:19→13:00)
[2023-09-09 07:34] LABS: Absolute Lymphocyte Count 0.85 X10^3/uL (0.83-4.51); Absolute Neutrophil Count 11.3 X10^3/uL (2.0-7.7); Basophil# 0.03 X10^3/uL; Basophil% 0.2 % (0-1); Eosinophil# 0.01 X10^3/uL; Eosinophils% 0.1 % (0-5); Hematocrit 39.8 % (37-47); Hemoglobin 12.2 g/dL (12.0-15.0); Lymphocyte # 0.85 X10^3/ul (0.83-4.51); Lymphocyte % 6.6 % (19-41); Mean Corp Hgb Conc 30.7 g/dL (32-36); Mean Corpuscular Hgb 26.2 pg (27.0-32.0); Mean Corpuscular Volume 85.4 fL (81-99); Mean Platelet Vol. 10.9 fl (6.2-12.0); Monocyte# 0.64 X10^3/uL; NRBC Flagged by Analyzer 0 % (0-5); Neutrophil # 11.33 X10^3/uL (2.7-7.7); Neutrophil % 87.6 % (47-70); Platelet Count 257 K/mm3 (150-450); RBC Distribution Width CV 18.7 % (11.6-14.6); Red Blood Count 4.66 M/mm3 (4.2-5.4); White Blood Count 12.9 K/mm3 (4.4-11.0)
[2023-09-09 07:57] LABS: ALB/GLOB Ratio 0.8 RATIO (0.9-2.4); AST(SGOT) 19 U/L (15-37); Alanine Aminotransfer ALT/SGPT 15 U/L (13-56); Alkaline Phosphatase 76 U/L (45-117); Anion Gap 4 (5-15); BUN 21 mg/dL (7-18); BUN/Creat Ratio 25.7 RATIO (10-20); Calcium,Total 8.6 mg/dL (8.5-10.1); Chloride 109 mmol/L (98-107); Creatinine, Serum 0.82 mg/dL (0.55-1.02); EST Glomerular Filtration Rate 71 mL/min (>60); Est Glom Filt Rate - Afr Amer 86 mL/min (>60); Estimated Creatinine Clearance 55.81 ml/min; Globulin 3.7 g/dL (2.2-4.2); Glucose 115 mg/dL (74-106); Potassium 4.5 mmol/L (3.5-5.1); Protein, Total 6.7 g/dL (6.4-8.2); Sodium Level 140 mmol/L (136-145)
[2023-09-09] MEDS: Pantoprazole Sodium 40 MG in 0.9% Normal Saline (100mL MB+) 100 ML 330 MG IV ×2 (10:55→22:19)
[2023-09-09] MEDS: Bisacodyl 10 MG Suppository RC (11:11)
[2023-09-09] MEDS: Morphine 2 MG/ML Syringe IV (11:32)
[2023-09-09] MEDS: 0.9% Saline Lock 10 ML Syringe IV (11:32)
[2023-09-09] MEDS: Cefotetan 2 GM in 0.9% Normal Saline (100mL MB+) 100 ML IV (14:19)
[2023-09-09] MEDS: Bupivacaine Mpf 0.5% 30 ML VIAL (15:22)
[2023-09-09] MEDS: Lactated Ringers 1,000 ML 15 ML IV (15:45)
[2023-09-10 00:27] VITALS: BMI 27.6
[2023-09-10 02:05] VITALS: BMI 26.8
[2023-09-10 06:05] VITALS: BMI 26.8
[2023-09-10] MEDS: Fleet Enema 133 ML RC (06:57)
[2023-09-10 06:59] LABS: Absolute Lymphocyte Count 0.64 X10^3/uL (0.83-4.51); Basophil# 0.03 X10^3/uL; Basophil% 0.2 % (0-1); Eosinophil# 0.02 X10^3/uL; Eosinophils% 0.1 % (0-5); Hematocrit 36.3 % (37-47); Lymphocyte # 0.64 X10^3/ul (0.83-4.51); Lymphocyte % 3.8 % (19-41); Mean Corp Hgb Conc 30.3 g/dL (32-36); Mean Corpuscular Hgb 26.4 pg (27.0-32.0); Mean Corpuscular Volume 87.1 fL (81-99); Monocyte# 0.88 X10^3/uL; Monocyte% 5.3 % (0-10); NRBC Flagged by Analyzer 0 % (0-5); Neutrophil # 14.98 X10^3/uL (2.7-7.7); Platelet Count 224 K/mm3 (150-450); RBC Distribution Width CV 18.8 % (11.6-14.6); RBC Distribution Width SD 59.7 fl (35.1-43.9); Red Blood Count 4.17 M/mm3 (4.2-5.4); White Blood Count 16.7 K/mm3 (4.4-11.0)
[2023-09-10 07:32] LABS: Anion Gap 4 (5-15); BUN 22 mg/dL (7-18); BUN/Creat Ratio 26.2 RATIO (10-20); Calcium,Total 8.2 mg/dL (8.5-10.1); Chloride 113 mmol/L (98-107); Creatinine, Serum 0.84 mg/dL (0.55-1.02); EST Glomerular Filtration Rate 69 mL/min (>60); Est Glom Filt Rate - Afr Amer 84 mL/min (>60); Estimated Creatinine Clearance 55.41 ml/min; Glucose 124 mg/dL (74-106); Potassium 4.1 mmol/L (3.5-5.1); Sodium Level 143 mmol/L (136-145)
[2023-09-10 07:44] VITALS: BP 149/71; PULSE 76; PULSE 80; RESP 16; TEMP 36.4; O2SAT 92
[2023-09-10] MEDS: Pantoprazole Sodium 40 MG in 0.9% Normal Saline (100mL MB+) 100 ML 330 MG IV ×2 (11:16→21:28)
[2023-09-10] MEDS: 0.9% Saline Lock 10 ML Syringe IV (11:17)
[2023-09-10 11:24] VITALS: BMI 26.8
[2023-09-10 14:36] VITALS: BP 157/68; PULSE 81; RESP 18; TEMP 36.6; O2SAT 95; BMI 26.8
[2023-09-10 18:01] VITALS: BMI 26.8
[2023-09-10 21:17] VITALS: BP 176/57; PULSE 82; RESP 18; TEMP 36.7; O2SAT 95
[2023-09-10] MEDS: Nystatin Powder 15gm Bottle 1 APPLIC TOPICAL (21:28)
[2023-09-10 21:31] VITALS: BP 156/77
[2023-09-10 22:05] VITALS: BMI 26.8
[2023-09-11 04:06] VITALS: BP 153/77; PULSE 80; RESP 18; TEMP 36.7; O2SAT 95
[2023-09-11] MEDS: Morphine 2 MG/ML Syringe IV (04:12)
[2023-09-11 06:00] VITALS: BMI 27.7
[2023-09-11 07:20] VITALS: O2SAT 97
[2023-09-11 07:52] LABS: Absolute Lymphocyte Count 0.66 X10^3/uL (0.83-4.51); Absolute Neutrophil Count 15.3 X10^3/uL (2.0-7.7); Basophil# 0.04 X10^3/uL; Basophil% 0.2 % (0-1); Eosinophil# 0.14 X10^3/uL; Eosinophils% 0.8 % (0-5); Hematocrit 32.8 % (37-47); Lymphocyte # 0.66 X10^3/ul (0.83-4.51); Lymphocyte % 3.8 % (19-41); Mean Corp Hgb Conc 30.5 g/dL (32-36); Mean Corpuscular Hgb 26.5 pg (27.0-32.0); Mean Corpuscular Volume 86.8 fL (81-99); Monocyte% 5.2 % (0-10); NRBC Flagged by Analyzer 0 % (0-5); Neutrophil # 15.33 X10^3/uL (2.7-7.7); Neutrophil % 89.4 % (47-70); Platelet Count 194 K/mm3 (150-450); RBC Distribution Width CV 18.9 % (11.6-14.6); RBC Distribution Width SD 59.9 fl (35.1-43.9); Red Blood Count 3.78 M/mm3 (4.2-5.4); White Blood Count 17.2 K/mm3 (4.4-11.0)
[2023-09-11 08:05] LABS: Anion Gap 8 (5-15); BUN 21 mg/dL (7-18); BUN/Creat Ratio 34.7 RATIO (10-20); Calcium,Total 8.3 mg/dL (8.5-10.1); Chloride 112 mmol/L (98-107); Creatinine, Serum 0.61 mg/dL (0.55-1.02); EST Glomerular Filtration Rate 101 mL/min (>60); Est Glom Filt Rate - Afr Amer 122 mL/min (>60); Estimated Creatinine Clearance 58.21 ml/min; Glucose 85 mg/dL (74-106); Potassium 3.4 mmol/L (3.5-5.1); Sodium Level 145 mmol/L (136-145)
[2023-09-11 09:34] VITALS: BP 153/84; PULSE 83; RESP 18; TEMP 36.6; O2SAT 98
[2023-09-11] MEDS: Pantoprazole Sodium 40 MG in 0.9% Normal Saline (100mL MB+) 100 ML 330 MG IV ×2 (09:50→21:40)
[2023-09-11] MEDS: Nystatin Powder 15gm Bottle 1 APPLIC TOPICAL ×2 (09:50→21:43)
[2023-09-11] MEDS: Acetaminophen 500 MG Tablet 1000 MG PO (10:07)
[2023-09-11 14:00] VITALS: BP 154/82; PULSE 80; RESP 18; TEMP 37; O2SAT 97
[2023-09-11 14:33] VITALS: PULSE 80
[2023-09-11 17:42] LABS: Procalcitonin 0.06 ng/mL (0.00-0.09)
[2023-09-11 21:28] VITALS: BP 143/70; PULSE 80; RESP 18; TEMP 36.8; O2SAT 95
[2023-09-11 22:06] LABS: Squamous Epithelial Cells - UA 0 SEEN /hpf (5-10)
[2023-09-11 22:08] LABS: Color, Urine Yellow (Yellow); Glucose, Dipstick Normal (Normal); Ketone-Dipstick 50 mg/dl (Negative); Leukocyte Esterase-Dipstick 100 /ul (Negative); Nitrite-Dipstick Negative (Negative); Occult Blood-Urine 25 /ul (Negative); Protein-Dipstick 100 mg/dl (Negative); Specific Gravity, Urine 1.025 (1.002-1.030); Urine Bilirubin Dipstick Negative (Negative); Urine Clarity Clear (Clear); Urine Urobilinogen Normal (Normal)
[2023-09-11 22:15] LABS: Calcium Oxalate Crystals Ur 1+ /hpf (<or=2+)
[2023-09-11 22:16] LABS: Bacteria RARE /hpf (None Seen); Mucous, Urine 2+ /hpf (<or=2+); Red Blood Cells-Urine 0-5 SEEN /hpf (0-5); White Blood Cells 5-10 SEEN /hpf (0-5)
[2023-09-12 03:19] VITALS: BMI 27.8
[2023-09-12 04:48] VITALS: BP 171/85; PULSE 81; RESP 18; TEMP 36.4; O2SAT 95
[2023-09-12] MEDS: Fleet Enema 133 ML RC (04:59)
[2023-09-12] MEDS: Acetaminophen 500 MG Tablet 1000 MG PO ×2 (04:59→23:12)
[2023-09-12 06:34] LABS: Absolute Lymphocyte Count 0.89 X10^3/uL (0.83-4.51); Absolute Neutrophil Count 11.2 X10^3/uL (2.0-7.7); Basophil# 0.03 X10^3/uL; Basophil% 0.2 % (0-1); Eosinophil# 0.41 X10^3/uL; Eosinophils% 3.1 % (0-5); Hematocrit 33.4 % (37-47); Hemoglobin 10.3 g/dL (12.0-15.0); Lymphocyte # 0.89 X10^3/ul (0.83-4.51); Lymphocyte % 6.7 % (19-41); Mean Corp Hgb Conc 30.8 g/dL (32-36); Mean Corpuscular Hgb 26.6 pg (27.0-32.0); Mean Corpuscular Volume 86.3 fL (81-99); Mean Platelet Vol. 11.2 fl (6.2-12.0); Monocyte# 0.65 X10^3/uL; Monocyte% 4.9 % (0-10); NRBC Flagged by Analyzer 0 % (0-5); Neutrophil # 11.22 X10^3/uL (2.7-7.7); Neutrophil % 84.6 % (47-70); Platelet Count 203 K/mm3 (150-450); RBC Distribution Width CV 18.6 % (11.6-14.6); RBC Distribution Width SD 58.9 fl (35.1-43.9); Red Blood Count 3.87 M/mm3 (4.2-5.4); White Blood Count 13.3 K/mm3 (4.4-11.0)
[2023-09-12 07:08] LABS: ALB/GLOB Ratio 0.7 RATIO (0.9-2.4); AST(SGOT) 16 U/L (15-37); Alanine Aminotransfer ALT/SGPT 12 U/L (13-56); Albumin, Serum 2.4 g/dL (3.2-5.0); Alkaline Phosphatase 65 U/L (45-117); Anion Gap 5 (5-15); BUN 15 mg/dL (7-18); BUN/Creat Ratio 29.1 RATIO (10-20); Calcium,Total 7.8 mg/dL (8.5-10.1); Chloride 110 mmol/L (98-107); Creatinine, Serum 0.52 mg/dL (0.55-1.02); EST Glomerular Filtration Rate 122 mL/min (>60); Est Glom Filt Rate - Afr Amer 147 mL/min (>60); Estimated Creatinine Clearance 58.32 ml/min; Globulin 3.4 g/dL (2.2-4.2); Glucose 100 mg/dL (74-106); Potassium 3.3 mmol/L (3.5-5.1); Protein, Total 5.8 g/dL (6.4-8.2); Sodium Level 142 mmol/L (136-145)
[2023-09-12] MEDS: Pantoprazole Sodium 40 MG in 0.9% Normal Saline (100mL MB+) 100 ML 330 MG IV ×2 (09:35→20:35)
[2023-09-12] MEDS: Enoxaparin 40 MG/0.4 ML Syringe SC (09:35)
[2023-09-12] MEDS: Nystatin Powder 15gm Bottle 1 APPLIC TOPICAL ×2 (09:36→20:35)
[2023-09-12 09:43] VITALS: BP 152/78; PULSE 80; RESP 16; TEMP 36.6; O2SAT 99
[2023-09-12] MEDS: Lactulose 20 GM/30 ML UDC PO (13:01)
[2023-09-12 15:17] VITALS: BP 149/79; PULSE 80; RESP 17; TEMP 36.8; O2SAT 97
[2023-09-12 18:00] VITALS: BP 153/70; PULSE 80; RESP 18; TEMP 36.5; O2SAT 97
[2023-09-12 18:04] VITALS: BP 153/70; PULSE 80
[2023-09-12] MEDS: Metoprolol Tartrate 25 MG Tablet PO (18:04)
[2023-09-12 20:28] VITALS: BP 148/84; PULSE 82; RESP 18; TEMP 36.4; O2SAT 97
[2023-09-13 04:30] VITALS: BP 156/83; PULSE 83; RESP 18; TEMP 36.8; O2SAT 95
[2023-09-13 05:52] LABS: Absolute Lymphocyte Count 0.85 X10^3/uL (0.83-4.51); Basophil# 0.02 X10^3/uL; Basophil% 0.2 % (0-1); Eosinophil# 0.41 X10^3/uL; Eosinophils% 3.8 % (0-5); Hematocrit 34.7 % (37-47); Hemoglobin 11.2 g/dL (12.0-15.0); Lymphocyte # 0.85 X10^3/ul (0.83-4.51); Lymphocyte % 7.8 % (19-41); Mean Corp Hgb Conc 32.3 g/dL (32-36); Mean Corpuscular Hgb 27.1 pg (27.0-32.0); Mean Platelet Vol. 10.9 fl (6.2-12.0); Monocyte# 0.61 X10^3/uL; Monocyte% 5.6 % (0-10); NRBC Flagged by Analyzer 0 % (0-5); Neutrophil # 8.96 X10^3/uL (2.7-7.7); Neutrophil % 82.2 % (47-70); Platelet Count 231 K/mm3 (150-450); RBC Distribution Width CV 18.5 % (11.6-14.6); Red Blood Count 4.13 M/mm3 (4.2-5.4); White Blood Count 10.9 K/mm3 (4.4-11.0)
[2023-09-13 06:00] VITALS: BMI 26.9
[2023-09-13 06:14] LABS: ALB/GLOB Ratio 0.7 RATIO (0.9-2.4); AST(SGOT) 19 U/L (15-37); Alanine Aminotransfer ALT/SGPT 13 U/L (13-56); Albumin, Serum 2.4 g/dL (3.2-5.0); Alkaline Phosphatase 70 U/L (45-117); Anion Gap 5 (5-15); BUN 7 mg/dL (7-18); Calcium,Total 8.1 mg/dL (8.5-10.1); Chloride 110 mmol/L (98-107); EST Glomerular Filtration Rate 126 mL/min (>60); Est Glom Filt Rate - Afr Amer 152 mL/min (>60); Estimated Creatinine Clearance 57.38 ml/min; Globulin 3.6 g/dL (2.2-4.2); Glucose 106 mg/dL (74-106); Potassium 3.4 mmol/L (3.5-5.1); Sodium Level 140 mmol/L (136-145)
[2023-09-13 08:48] VITALS: BP 146/78; PULSE 80; RESP 16; TEMP 36.6; O2SAT 97
[2023-09-13 10:56] VITALS: BP 146/78; PULSE 80
[2023-09-13] MEDS: Pantoprazole Sodium 40 MG in 0.9% Normal Saline (100mL MB+) 100 ML 330 MG IV (10:56)
[2023-09-13] MEDS: Metoprolol Tartrate 25 MG Tablet PO (10:56)
[2023-09-13] MEDS: Enoxaparin 40 MG/0.4 ML Syringe SC (10:57)
[2023-09-13 14:04] VITALS: BP 152/86; PULSE 81; RESP 16; TEMP 36.6; O2SAT 95
== END 2023-09-13 13:59 | disposition home or self-care (01) | DRG 330 ==
LOC: ED 14:46 → SDC 15:07 → ED 16:58 → MS3 16:59
PROVIDERS: Surgery; Admitting Provider Family Medicine; Emergency Provider Emergency Medicine; PCP Family Medicine Geriatric Medicine; Visit Provider Internal Medicine
PROC: 0DB80ZZ Excision of Small Intestine, Open Approach (ICD-10-PCS; CPT 44202; principal; 2023-09-09 14:10)
DX: K40.30 Unilateral inguinal hernia, with obstruction, without gangrene, not specified as recurrent (principal); K56.600 Partial intestinal obstruction, unspecified as to cause; K56.51 Intestinal adhesions [bands], with partial obstruction; R18.8 Other ascites; L97.822 Non-pressure chronic ulcer of other part of left lower leg with fat layer exposed; T86.822 Skin graft (allograft) (autograft) infection; M06.9 Rheumatoid arthritis, unspecified; D50.9 Iron deficiency anemia, unspecified; I10 Essential (primary) hypertension; E03.9 Hypothyroidism, unspecified; I48.0 Paroxysmal atrial fibrillation; I25.10 Atherosclerotic heart disease of native coronary artery without angina pectoris; E78.5 Hyperlipidemia, unspecified; G47.33 Obstructive sleep apnea (adult) (pediatric); Y83.2 Surgical operation with anastomosis, bypass or graft as the cause of abnormal reaction of the patient, or of later complication, without mention of misadventure at the time of the procedure; B96.83 Acinetobacter baumannii as the cause of diseases classified elsewhere; Z53.31 Laparoscopic surgical procedure converted to open procedure; Z79.01 Long term (current) use of 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s; Z79.890 Hormone replacement therapy; Z79.899 Other long term (current) drug therapy; Z86.73 Personal history of transient ischemic attack (TIA), and cerebral infarction without residual deficits; Z87.891 Personal history of nicotine dependence; Z95.0 Presence of cardiac pacemaker; Z86.718 Personal history of other venous thrombosis and embolism; W20.8XXD Other cause of strike by thrown, projected or falling object, subsequent encounter; S80.12XD Contusion of left lower leg, subsequent encounter
CPT/HCPCS: 15271; 15272; 36415; 71045; 71046; 74018; 74177; 74250; 80048; 80053; 81001; 83690; 84145; 85025; 87086; 87088; 88307; 93005; 94668; 97110; 97162; 97166; 97530; 97535; 97802; 99285; J7030; J7120; P9612; Q4121; Q9967; A4216; J0295; J2405

== ENCOUNTER → 2023-09-17 | Outpatient (CLI) | payer MEDICARE, OTHER, SELFPAY ==
[2023-09-17 17:42] LABS: Absolute Lymphocyte Count 1.18 X10^3/uL (0.83-4.51); Absolute Neutrophil Count 7.3 X10^3/uL (2.0-7.7); Basophil# 0.03 X10^3/uL; Basophil% 0.3 % (0-1); Eosinophil# 0.34 X10^3/uL; Eosinophils% 3.6 % (0-5); Hematocrit 33.6 % (37-47); Hemoglobin 10.4 g/dL (12.0-15.0); Lymphocyte # 1.18 X10^3/ul (0.83-4.51); Lymphocyte % 12.4 % (19-41); Mean Corpuscular Hgb 26.4 pg (27.0-32.0); Mean Corpuscular Volume 85.3 fL (81-99); Mean Platelet Vol. 10.4 fl (6.2-12.0); Monocyte% 6.3 % (0-10); NRBC Flagged by Analyzer 0 % (0-5); Neutrophil # 7.34 X10^3/uL (2.7-7.7); Neutrophil % 76.9 % (47-70); Platelet Count 291 K/mm3 (150-450); RBC Distribution Width CV 18.2 % (11.6-14.6); RBC Distribution Width SD 57.5 fl (35.1-43.9); Red Blood Count 3.94 M/mm3 (4.2-5.4); White Blood Count 9.5 K/mm3 (4.4-11.0)
[2023-09-17 18:39] LABS: Anion Gap 5 (5-15); BUN 20 mg/dL (7-18); BUN/Creat Ratio 29.6 RATIO (10-20); Calcium,Total 8.5 mg/dL (8.5-10.1); Chloride 108 mmol/L (98-107); Creatinine, Serum 0.68 mg/dL (0.55-1.02); EST Glomerular Filtration Rate 89 mL/min (>60); Est Glom Filt Rate - Afr Amer 108 mL/min (>60); Glucose 105 mg/dL (74-106); Potassium 3.6 mmol/L (3.5-5.1); Sodium Level 138 mmol/L (136-145)
[2023-09-21 09:42] VITALS: BP 147/76; PULSE 89; RESP 16; TEMP 36.8
== END | disposition home or self-care (01) ==
LOC: LAB 16:49
PROVIDERS: PCP Family Medicine Geriatric Medicine; Referring Provider Family Medicine Geriatric Medicine; Visit Provider Family Medicine Geriatric Medicine
DX: I10 Essential (primary) hypertension (principal)
CPT/HCPCS: 36415; 80048; 85025

== ENCOUNTER 2023-09-21 09:30 | Outpatient (RCR) | payer MEDICARE, OTHER, SELFPAY ==
[2023-08-24 00:08] VITALS: BP 137/68; PULSE 83; RESP 20; TEMP 36.9; BMI 27.6
[2023-08-25 14:54] VITALS: BP 148/54; PULSE 87; RESP 18; TEMP 36; BMI 27.6
[2023-08-31 09:41] VITALS: BP 156/84; PULSE 89; RESP 18; TEMP 35.7; BMI 27.6
[2023-09-07 10:13] VITALS: BP 141/86; PULSE 84; RESP 18; TEMP 36.6; BMI 27.6
[2023-09-14 09:47] VITALS: BP 142/70; PULSE 82; RESP 18; TEMP 36.7; BMI 27.6
== END 2023-09-22 23:59 | disposition home or self-care (01) ==
LOC: WC 09:30
PROVIDERS: PCP Family Medicine Geriatric Medicine; Referring Provider Family Medicine Geriatric Medicine; Visit Provider Nurse Practitioner Family
DX: L97.822 Non-pressure chronic ulcer of other part of left lower leg with fat layer exposed (principal); M06.9 Rheumatoid arthritis, unspecified; I48.91 Unspecified atrial fibrillation; Z79.01 Long term (current) use of 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s; S80.12XS Contusion of left lower leg, sequela; W20.8XXD Other cause of strike by thrown, projected or falling object, subsequent encounter; Z95.0 Presence of cardiac pacemaker; Z86.718 Personal history of other venous thrombosis and embolism; I10 Essential (primary) hypertension; E78.5 Hyperlipidemia, unspecified
CPT/HCPCS: 11042; 11045; 15271; 15272; 87070; 87075; 87077; 87186; 87205; Q4121

== ENCOUNTER 2023-10-21 10:00 | Outpatient (RCR) | payer MEDICARE, OTHER, SELFPAY ==
[2023-09-23 00:11] VITALS: BP 142/70; PULSE 82; RESP 18; TEMP 36.7; BMI 27.6
[2023-09-28 14:10] VITALS: BP 158/81; PULSE 90; RESP 18; TEMP 36.9; BMI 27.6
--- NOTE | 2023-09-28 16:18 | PN.PCM_ITS ---
History of Present Illness Date of Service: 09/28/23 Chief Complaint: Left lateral leg ulcer that was initially caused by trauma from bumping leg on edge of car. History of Wound: Patient is 83 year female who presents for further evaluation of an ulcer on her left posterolateral leg. She initially bumped her leg on her car frame when removing something from her car on 05/22/24 and needed sutures to her left anterior leg. She then developed increased pain, swelling and a hematoma to her left leg and was seen in the ED very early on 05/27/23. She is on chronic anticoagulation for Afib, her INR was 5.3 at that time. She was discharged home with follow up with her PCP later that day. She returned to the ED via squad later that day after she experienced a large amount of bleeding. The hematoma was evacuated in the ED under sedation. She was admitted to the hospital and she required transfusion of 1 unit PRBC when her hemoglobin dropped from 11 to 6.9. She was transferred to [facility] for a little while. 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 She states she is doing well at home. Her daughter is helping her with her dressing changes. Wound care - Fibracol. 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 Wound cultures obtained 07/27/23 which were positive for Pseudomonas aeruginosa, MRSA, Corynebacterium striatum, and Anaerobic cocci. She was placed on Flagyl and finished them. She was placed on Levaquin and is tolerating them thus far. She was placed on Linezolid and stated she had some visual problems and stopped the antibiotic. Stopped the Clindamycin due severe heart burn. Re-cultured the ulcer on 08/25/23 and it was positive for Acinetobacter baumannii. Started her on Augmentin, which she has tolerated in the past. Today she denies fever, chills, nausea or vomiting. Her appetite is good. Patient was interested in advanced skin substitute grafts to help the ulcer to heal. She has been approved for Thera-Skin. Progress of Wound: Left posterolateral leg ulcer is smaller in size.The wound bed is beefy pink. She has been approved for Theraskin and #3 was placed last week. She is trying to become more active but states that she feels weak. I offered to order PT for her for strengthening, but she would like to think about it. Objective Data Objective Data Vital Signs: Vital Signs Temp Pulse Resp BP O2 Del Method 98.5 F 90 18 158/81 H Room Air 09/28/23 14:10 09/28/23 14:10 09/28/23 14:10 09/28/23 14:10 09/28/23 14:10 Oxygen Delivery Method Room Air Weight: 170 lb 12.573 oz Body Mass Index (BMI) 27.6 Charges/Coding Procedures Integumentary 150xxx-152xx: 99381 Skin sub graft trnk/arm/leg Add On Codes: 20614 Skin sub graft t/a/l add-on (x1) Debridement Note Debridement Note Wound debrided: #3 - Left posterolateral leg ulcer Laterality: Left Wound Grade/Stage: Grade III Type of Debridement: Excisional debridement Anesthesia Used: 5% Lidocaine Gel and Cetacaine Depth: Down to and including healthy tissue and in the subcutaneous layer Percentage of wound debrided: 100 Instrument Used: 7mm curette Tissue Removed: subcutaneous tissue, senescent cells Severity: Fat Layer Exposed Amount of bleeding with debridement: Mild Bleeding Controlled with: Pressure and Compression and gauze Patient tolerated procedure: Patient tolerated procedure well Post-Debridement Measurements and Additional Note: Post-Debridement Measurements/Treatment - Nurse 1 - General Ulcer Assessment Start: 09/28/23 14:10 Freq: Status: Active Protocol: .[place] Activity Type Activity Date Activity User E-sign Co-sign Detail Recorded Client Recorded Date Recorded By Document 09/28/23 14:10 KW Desktop 09/28/23 14:19 KW 09/28/23 14:10 - Today's Visit Information Type of service Follow-up Visit (Physician/WEED CONTROL INSPECTOR ) Arrival Mode Ambulatory Patient Identification Verified (Name & Yes ) Height and Weight Body Mass Index (BMI) 27.6 BMI Classification Overweight Vital Signs Temperature (97.8 F-99.1 F) 98.5 F Temperature Source Temporal Pulse Rate (60-100) 90 Pulse Location Monitor Respiratory Rate (12-18) 18 Respiratory rate source Observation Oxygen Delivery Method Room Air Blood Pressure (90/60-120/80) 158/81 H Blood Pressure Mean (mm Hg) 106 Source Monitor Position Sitting Blood Pressure Location Left Arm History Since Last Visit- (Skip if this is Patient's initial visit) Have you changed medications since your No last visit? Any new allergies or adverse reactions No Had a fall/change in ADL's that may No increase risk of falls Signs or symptoms of abuse and/or No neglect since last visit Have you been in the hospital since your No last visit? Has dressing in place as prescribed Yes Has compression in place as prescribed Yes Has offloadiing in place as prescribed N/A Experienced any changes in pain level or No management Left Footwear Regular Shoe Right Footwear Regular Shoe Pain Scale: 0-10 Numeric Is Patient Pain Free? Yes - Nurse 1 - General Ulcer Measurement Start: 09/28/23 14:10 Freq: Status: Active Protocol: Activity Type Activity Date Activity User E-sign Co-sign Detail Recorded Client Recorded Date Recorded By Document 09/28/23 14:10 KW Desktop 09/28/23 14:19 KW 09/28/23 14:10 Wound Center Nurse 1 #3 L Calf -Combined with other wound No -Current Size (cm) - Length 7.1 -Current Size (cm) - Width 7.4 -Current Size (cm) - Depth 0.1 -Total Square Cm 52.54 -Epithelialization Small 1-33% -Tunneling No -Undermining/Tunneling No -Circular Undermining No -Exudate Amt Medium -Exudate Type Serosanguineous -Wound Margin Distinct, Outline Attached -Granulation Amt Large (67-100%) -Granulation Quality Red -Slough/Fibrin Yes -Necrosis Amt Small (1-33%) -Necrotic Tissue Type Adherent Slough -Texture (Karen-wound Skin Appearance) Assessed, Scarring -Moisture (Karen-wound Skin Appearance) Assessed,Dry/ Scaly -Color (Karen-wound Skin Appearance) Assessed -Temperature (Karen-wound Skin No Abnormality Appearance) (Pt Warm) -Tenderness on Palpation (Karen-wound No Skin Appearance) -Ulcer Cleansing Soap and Water -Foul Odor after Cleansing No -Anesthetic Used 4% Lidocaine Solution Lower Limb Edema Present Yes Left Calf (cm) 40.6 Left Ankle (cm) 21 WC - Nurse 2 - General Ulcer CM Notes Start: 09/28/23 14:10 Freq: Status: Active Protocol: Activity Type Activity Date Activity User E-sign Co-sign Detail Recorded Client Recorded Date Recorded By Document 09/28/23 14:54 Desktop 09/28/23 15:24 Document 09/28/23 15:24 Desktop 09/28/23 15:25 Document 09/28/23 15:25 Desktop 09/28/23 15:27 09/28/23 09/28/23 09/28/23 14:54 15:24 15:25 Wound Center Nurse 2 #3 L Calf -Time 14:54 15:24 15:26 -Correct Patient Yes Yes Yes -Correct Side, Site, Position Yes Yes Yes -Correct Procedure Yes Yes Yes -Procedure Performed Yes -Type of Procedure Debridement -Clinical Debridement Subcutaneous -Tissue Removed Subcutaneous -Post Debridement (cm) - Length 10.2 -Post Debridement (cm) - Width 4.5 -Post Debridement (cm) - Depth 0.1 -Total Square (Post) (cm) 45.90 -Area of Debridement (cm) - Length 10.2 -Area of Debridement (cm) - Width 4.5 -Total Square (Area) (cm) 45.90 -Tunneling No -Undermining/Tunneling No -Circular Undermining No -Wound/Ulcer Outcome Not Healed -Ulcer Cleansing Rinsed/ Irrigated with Saline -Foul Odor after Cleansing No -Bioengineered Tissue Yes Yes Yes -Type of Bioengineered Tissue Theraskin Theraskin Theraskin -Expiration Date 11/19/27 04/25/28 04/25/28 -Product Lot Number [id number] -Percent Used 100 100 100 -Lot number of Saline Used [id number] -Debridement - Subq, 1st 20sq cm No -Apply Skin Sub - 1st 25 sq cm - Legs 1 -Theraskin - 3TS (3 SQ CM) (per sq cm) 6.5 3 3 Pain Scale: 0-10 Numeric Is Patient Pain Free? Yes Yes Yes - Nurse 3 - General Ulcer D/C NN Start: 09/28/23 14:10 Freq: Status: Active Protocol: Activity Type Activity Date Activity User E-sign Co-sign Detail Recorded Client Recorded Date Recorded By Document 09/28/23 15:30 Desktop 09/28/23 15:30 KW 09/28/23 15:30 Wound Care Center Nurse 3 #3 L Calf -Primary Dressing Applied Aquacel Extra -Primary Dressing Covered/Secured with Dry Gauze & Roll Gauze, Secured with Tape -Aquacel Extra 1 Pain Scale: 0-10 Numeric Is Patient Pain Free? 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 100% of the products (6cm2, 3cm2 x 2). Theraskin was secured with Dermabond. Skin prep used surrounding the ulcer. Wound veil covered the Theraskin and secured with Steri-strips. On the two areas that were not covered by the Theraskin, will place Aqucel extra and change them at the time she changes the outer dressings. Cover with ABD and kerlix. Instructed her to change the outer dressing and Aquacel extra every other day as needed. She is not to get this area wet. If she showers, she is to use a shower boot/cast cover. Compression - Double tubigrip. Stressed importance of keeping legs elevated when sitting to help prevent edema. A wound culture was obtained on 08/24/23 which was positive for Acinetobacter baumannii and she was treated with Augmentin. Wound cultures obtained 07/27/23 which were positive for Pseudomonas aeruginosa, MRSA, Corynebacterium striatum, and Anaerobic cocci. She was placed on Flagyl and finished them. She was placed on Levaquin and is tolerating them thus far. She was placed on Linezolid and stated she had some visual problems and stopped the antibiotic. She had burning esophageal pain from the Clindamycin, so she stopped that. Followup one week.
[2023-10-05 09:53] VITALS: BP 154/71; PULSE 93; RESP 20; TEMP 37.3; BMI 27.6
--- NOTE | 2023-10-05 13:07 | PCM.WC.PN ---
History of Present Illness Date of Service: 10/05/23 Chief Complaint: Left lateral leg ulcer that was initially caused by trauma from bumping leg on edge of car. History of Wound: Patient is 83 year female who presents for further evaluation of an ulcer on her left posterolateral leg. She initially bumped her leg on her car frame when removing something from her car on 05/22/24 and needed sutures to her left anterior leg. She then developed increased pain, swelling and a hematoma to her left leg and was seen in the ED very early on 05/27/23. She is on chronic anticoagulation for Afib, her INR was 5.3 at that time. She was discharged home with follow up with her PCP later that day. She returned to the ED via squad later that day after she experienced a large amount of bleeding. The hematoma was evacuated in the ED under sedation. She was admitted to the hospital and she required transfusion of 1 unit PRBC when her hemoglobin dropped from 11 to 6.9. [facility]. She comes in today for further evaluation of her left posterolateral leg ulcer from a hematoma. She states she is doing well at home. Her daughter is helping her with her dressing changes. Wound care - Fibracol. 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 Wound cultures obtained 07/27/23 which were positive for Pseudomonas aeruginosa, MRSA, Corynebacterium striatum, and Anaerobic cocci. She was placed on Flagyl and finished them. She was placed on Levaquin and is tolerating them thus far. She was placed on Linezolid and stated she had some visual problems and stopped the antibiotic. Stopped the Clindamycin due severe heart burn. Re-cultured the ulcer on 08/25/23 and it was positive for Acinetobacter baumannii. Started her on Augmentin, which she has tolerated in the past. Today she denies fever, chills, nausea or vomiting. Her appetite is good. Patient was interested in advanced skin substitute grafts to help the ulcer to heal. She has been approved for Thera-Skin. Progress of Wound: Left posterolateral leg ulcer is smaller in size.The wound bed is beefy pink. She has been approved for Theraskin and #4 was placed last week. Objective Data Objective Data Vital Signs: Vital Signs Temp Pulse Resp BP O2 Del Method 99.1 F 93 20 H 154/71 H Room Air 10/05/23 09:53 10/05/23 09:53 10/05/23 09:53 10/05/23 09:53 09/28/23 14:10 Oxygen Delivery Method Room Air Weight: 170 lb 12.573 oz Body Mass Index (BMI) 27.6 Charges/Coding Procedures Integumentary 150xxx-152xx: 26027 Skin sub graft trnk/arm/leg Add On Codes: 65716 Skin sub graft t/a/l add-on (x1) Debridement Note Debridement Note Wound debrided: #3 - Left posterolateral leg ulcer Laterality: Left Wound Grade/Stage: Grade III Type of Debridement: Excisional debridement Anesthesia Used: 5% Lidocaine Gel and Cetacaine Depth: Down to and including healthy tissue and in the subcutaneous layer Percentage of wound debrided: 100 Instrument Used: 7mm curette Tissue Removed: subcutaneous tissue, senescent cells Severity: Fat Layer Exposed Amount of bleeding with debridement: Mild Bleeding Controlled with: Pressure and Compression and gauze Patient tolerated procedure: Patient tolerated procedure well Post-Debridement Measurements and Additional Note: Post-Debridement Measurements/Treatment - Nurse 1 - General Ulcer Assessment Start: 09/28/23 14:10 Freq: Status: Active Protocol: [place] Activity Type Activity Date Activity User E-sign Co-sign Detail Recorded Client Recorded Date Recorded By Document 09/28/23 14:10 KW Desktop 09/28/23 14:19 KW Document 10/05/23 09:53 DL Desktop 10/05/23 10:00 DL 09/28/23 10/05/23 14:10 09:53 - Today's Visit Information Type of service Follow-up Visit Follow-up Visit (Physician/GEOLOGICAL MANAGER (Physician/GEOLOGICAL MANAGER ) ) Arrival Mode Ambulatory Ambulatory Patient Identification Verified (Name & Yes Yes ) Height and Weight Body Mass Index (BMI) 27.6 27.6 BMI Classification Overweight Overweight Vital Signs Temperature (97.8 F-99.1 F) 98.5 F 99.1 F Temperature Source Temporal Temporal Pulse Rate (60-100) 90 93 Pulse Location Monitor Monitor Respiratory Rate (12-18) 18 20 H Respiratory rate source Observation Observation Oxygen Delivery Method Room Air Blood Pressure (90/60-120/80) 158/81 H 154/71 H Blood Pressure Mean (mm Hg) 106 98 Source Monitor Monitor Position Sitting Blood Pressure Location Left Arm History Since Last Visit- (Skip if this is Patient's initial visit) Have you changed medications since your No No last visit? Any new allergies or adverse reactions No No Had a fall/change in ADL's that may No No increase risk of falls Signs or symptoms of abuse and/or No No neglect since last visit Have you been in the hospital since your No No last visit? Has dressing in place as prescribed Yes Yes Has compression in place as prescribed Yes Yes Has offloadiing in place as prescribed N/A N/A Experienced any changes in pain level or No No management Left Footwear Regular Shoe Right Footwear Regular Shoe Pain Scale: 0-10 Numeric Is Patient Pain Free? Yes Yes WC - Nurse 1 - General Ulcer Measurement Start: 09/28/23 14:10 Freq: Status: Active Protocol: Activity Type Activity Date Activity User E-sign Co-sign Detail Recorded Client Recorded Date Recorded By Document 09/28/23 14:10 KW Desktop 09/28/23 14:19 KW Document 10/05/23 09:53 DL Desktop 10/05/23 10:00 DL 09/28/23 10/05/23 14:10 09:53 Wound Center Nurse 1 #3 L Calf -Combined with other wound No -Current Size (cm) - Length 7.1 8 -Current Size (cm) - Width 7.4 9 -Current Size (cm) - Depth 0.1 0.1 -Total Square Cm 52.54 72 -Epithelialization Small 1-33% -Tunneling No -Undermining/Tunneling No -Circular Undermining No -Exudate Amt Medium Medium -Exudate Type Serosanguineous Serosanguineous -Wound Margin Distinct, Distinct, Outline Outline Attached Attached -Granulation Amt Large (67-100%) Medium (34-66%) -Granulation Quality Red Red -Slough/Fibrin Yes -Necrosis Amt Small (1-33%) Medium (34-66%) -Necrotic Tissue Type Adherent Slough Adherent Slough -Structure Exposed N/A -Texture (Karen-wound Skin Appearance) Assessed, Friable, Scarring Scarring -Moisture (Karen-wound Skin Appearance) Assessed,Dry/ No Abnormality, Scaly Maceration -Color (Karen-wound Skin Appearance) Assessed No Abnormality -Temperature (Karen-wound Skin No Abnormality No Abnormality Appearance) (Pt Warm) (Pt Warm) -Tenderness on Palpation (Karen-wound No No Skin Appearance) -Ulcer Cleansing Soap and Water Soap and Water -Foul Odor after Cleansing No No -Anesthetic Used 4% Lidocaine 5% Lidocaine Solution Gel Lower Limb Edema Present Yes Left Calf (cm) 40.6 39 Left Ankle (cm) 21 22.2 WC - Nurse 2 - General Ulcer CM Notes Start: 09/28/23 14:10 Freq: Status: Active Protocol: Activity Type Activity Date Activity User E-sign Co-sign Detail Recorded Client Recorded Date Recorded By Document 09/28/23 14:54 GM Desktop 09/28/23 15:24 GM Edit Result 09/28/23 14:54 GM (1) [id number] 09/30/23 08:50 JF Edit Result 09/28/23 14:54 GM (2) [id number] 09/30/23 08:58 GM Document 09/28/23 15:24 GM Desktop 09/28/23 15:25 GM Edit Result 09/28/23 15:24 GM (3) [id number] 09/30/23 08:58 GM Document 09/28/23 15:25 GM Desktop 09/28/23 15:27 GM Edit Result 09/28/23 15:25 GM (4) [id number] 09/30/23 08:55 GM Document 10/05/23 10:13 DS Desktop 10/05/23 10:22 DS (1) #3 L Calf - Theraskin - 3TS (3 SQ CM) (per sq cm) 6.5 => 6 - Theraskin - 100TSXS (6 SQ CM) (per sq => 6 cm) (2) #3 L Calf - Wound Comment(s) => Theraskin #2 [id number] exp 05/06/2028 3 sq cm => Theraskin #3 [id number] exp 04/25/2028 3 sq cm (3) #3 L Calf - Bioengineered Tissue Yes => - Type of Bioengineered Tissue Theraskin => - Expiration Date 04/25/28 => - Product Lot Number [id number] => - Percent Used 100 => - Lot number of Saline Used [id number] => - Theraskin - 3TS (3 SQ CM) (per sq cm) 3 => (4) #3 L Calf - Bioengineered Tissue Yes => - Type of Bioengineered Tissue Theraskin => - Expiration Date 04/25/28 => - Product Lot Number [id number] => - Percent Used 100 => - Lot number of Saline Used [id number] => - Theraskin - 3TS (3 SQ CM) (per sq cm) 3 => 09/28/23 09/28/23 09/28/23 14:54 15:24 15:25 Wound Center Nurse 2 #3 L Calf -Time 14:54 15:24 15:26 -Correct Patient Yes Yes Yes -Correct Side, Site, Position Yes Yes Yes -Correct Procedure Yes Yes Yes -Procedure Performed Yes -Type of Procedure Debridement -Clinical Debridement Subcutaneous -Tissue Removed Subcutaneous -Post Debridement (cm) - Length 10.2 -Post Debridement (cm) - Width 4.5 -Post Debridement (cm) - Depth 0.1 -Total Square (Post) (cm) 45.90 -Area of Debridement (cm) - Length 10.2 -Area of Debridement (cm) - Width 4.5 -Total Square (Area) (cm) 45.90 -Tunneling No -Undermining/Tunneling No -Circular Undermining No -Wound/Ulcer Outcome Not Healed -Ulcer Cleansing Rinsed/ Irrigated with Saline -Foul Odor after Cleansing No -Bioengineered Tissue Yes -Type of Bioengineered Tissue Theraskin -Expiration Date 11/19/27 -Product Lot Number [id number] -Percent Used 100 -Lot number of Saline Used -Bleeding Controlled with -Treatment Response -Debridement - Subq, 1st 20sq cm No -Apply Skin Sub - 1st 25 sq cm - Legs 1 -Apply Skin Sub - each addt'l 25 sq cm - Legs -Theraskin - 3TS (3 SQ CM) (per sq cm) 6 -Theraskin - 100TSXS (6 SQ CM) (per sq 6 cm) -Theraskin - 102TSL (39 SQ CM) (per sq cm) -Wound Comment(s) Theraskin #2 [id number] exp 05/06/2028 3 sq cm Theraskin #3 [id number] exp 04/25/2028 3 sq cm Pain Scale: 0-10 Numeric Is Patient Pain Free? Yes Yes Yes 10/05/23 10:13 Wound Center Nurse 2 #3 L Calf -Time 10:13 -Correct Patient Yes -Correct Side, Site, Position Yes -Correct Procedure Yes -Procedure Performed Yes -Type of Procedure Debridement -Clinical Debridement Subcutaneous -Tissue Removed Subcutaneous -Post Debridement (cm) - Length 10.0 -Post Debridement (cm) - Width 3.5 -Post Debridement (cm) - Depth 0.1 -Total Square (Post) (cm) 35.00 -Area of Debridement (cm) - Length 10.0 -Area of Debridement (cm) - Width 3.5 -Total Square (Area) (cm) 35.00 -Tunneling -Undermining/Tunneling -Circular Undermining -Wound/Ulcer Outcome Not Healed -Ulcer Cleansing Rinsed/ Irrigated with Saline -Foul Odor after Cleansing -Bioengineered Tissue -Type of Bioengineered Tissue Theraskin -Expiration Date 12/01/27 -Product Lot Number [id number] -Percent Used 100 -Lot number of Saline Used [id number] -Bleeding Controlled with Pressure -Treatment Response Procedure Tolerated Well -Debridement - Subq, 1st 20sq cm No -Apply Skin Sub - 1st 25 sq cm - Legs 1 -Apply Skin Sub - each addt'l 25 sq cm 1 - Legs -Theraskin - 3TS (3 SQ CM) (per sq cm) -Theraskin - 100TSXS (6 SQ CM) (per sq cm) -Theraskin - 102TSL (39 SQ CM) (per sq 39 cm) -Wound Comment(s) Pain Scale: 0-10 Numeric Is Patient Pain Free? Yes WC - Nurse 3 - General Ulcer D/C NN Start: 09/28/23 14:10 Freq: Status: Active Protocol: Activity Type Activity Date Activity User E-sign Co-sign Detail Recorded Client Recorded Date Recorded By Document 09/28/23 15:30 KW Desktop 09/28/23 15:30 KW Document 10/05/23 10:39 DL Desktop 10/05/23 10:41 DL 09/28/23 10/05/23 15:30 10:39 Wound Care Center Nurse 3 #3 L Calf -Ulcer Cleansing Not Cleansed -Foul Odor after Cleansing No -Primary Dressing Applied Aquacel Extra -Other Dressing Theraskin -Primary Dressing Covered/Secured with Dry Gauze & Dry Gauze & Roll Gauze, Roll Gauze, Secured with Secured with Tape Tape -Other Covering tubigrip -Aquacel Extra 1 Treatment Response Procedure Tolerated Well Pain Scale: 0-10 Numeric Is Patient Pain Free? 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 100% of the product was used. Theraskin was secured with Dermabond. Skin prep used surrounding the ulcer. Wound veil covered the Theraskin and secured with Steri-strips. On the two areas that were not covered by the Theraskin, will place Aqucel extra and change them at the time she changes the outer dressings. Cover with ABD and kerlix. Instructed her to change the outer dressing and Aquacel extra every other day as needed. She is not to get this area wet. If she showers, she is to use a shower boot/cast cover. Compression - Double tubigrip. Stressed importance of keeping legs elevated when sitting to help prevent edema. A wound culture was obtained on 08/24/23 which was positive for Acinetobacter baumannii and she was treated with Augmentin. Wound cultures obtained 07/27/23 which were positive for Pseudomonas aeruginosa, MRSA, Corynebacterium striatum, and Anaerobic cocci. She was placed on Flagyl and finished them. She was placed on Levaquin and is tolerating them thus far. She was placed on Linezolid and stated she had some visual problems and stopped the antibiotic. She had burning esophageal pain from the Clindamycin, so she stopped that. Followup one week.
[2023-10-12 11:11] VITALS: BP 142/77; PULSE 88; RESP 18; TEMP 36.6; BMI 27.6
--- NOTE | 2023-10-12 16:44 | PCM.WC.PN ---
History of Present Illness Date of Service: 10/12/23 Chief Complaint: Left lateral leg ulcer that was initially caused by trauma from bumping leg on edge of car. History of Wound: Patient is 83 year female who presents for further evaluation of an ulcer on her left posterolateral leg. She initially bumped her leg on her car frame when removing something from her car on 05/22/24 and needed sutures to her left anterior leg. She then developed increased pain, swelling and a hematoma to her left leg and was seen in the ED very early on 05/27/23. She is on chronic anticoagulation for Afib, her INR was 5.3 at that time. She was discharged home with follow up with her PCP later that day. She returned to the ED via squad later that day after she experienced a large amount of bleeding. The hematoma was evacuated in the ED under sedation. She was admitted to the hospital and she required transfusion of 1 unit PRBC when her hemoglobin dropped from 11 to 6.9. She was transferred to [facility] for a little while. She comes in today for further evaluation of her left posterolateral leg ulcer from a hematoma. She states she is doing well at home. Her daughter is helping her with her dressing changes. Wound care - Fibracol. She has a history of Afib, mosquito sprayer coagulation, mitral valve regurgitation, cardiac ablation, cardiac pace maker, DVT, HTN, hyperlipidemia, rheumatoid arthritis, cataract removal, and multiple wounds in the past. Wound cultures obtained 07/27/23 which were positive for Pseudomonas aeruginosa, MRSA, Corynebacterium striatum, and Anaerobic cocci. She was placed on Flagyl and finished them. She was placed on Levaquin and is tolerating them thus far. She was placed on Linezolid and stated she had some visual problems and stopped the antibiotic. Stopped the Clindamycin due severe heart burn. Re-cultured the ulcer on 08/25/23 and it was positive for Acinetobacter baumannii. Started her on Augmentin, which she has tolerated in the past. Today she denies fever, chills, nausea or vomiting. Her appetite is good. Patient was interested in advanced skin substitute grafts to help the ulcer to heal. She has been approved for Thera-Skin. Progress of Wound: Left posterolateral leg ulcer is smaller in size.The wound bed is beefy pink. She has been approved for Theraskin and #6 was placed last week. Objective Data Objective Data Vital Signs: Vital Signs Temp Pulse Resp BP O2 Del Method 97.9 F 88 18 142/77 H Room Air 10/12/23 11:11 10/12/23 11:11 10/12/23 11:11 10/12/23 11:11 10/12/23 11:11 Oxygen Delivery Method Room Air Weight: 170 lb 12.573 oz Body Mass Index (BMI) 27.6 Charges/Coding Procedures Integumentary 150xxx-152xx: 42926 Skin sub graft trnk/arm/leg Add On Codes: 68359 Skin sub graft t/a/l add-on (x1) Debridement Note Debridement Note Wound debrided: #3 - Left posterolateral leg ulcer Laterality: Left Wound Grade/Stage: Grade III Type of Debridement: Excisional debridement Anesthesia Used: 5% Lidocaine Gel and Cetacaine Depth: Down to and including healthy tissue and in the subcutaneous layer Percentage of wound debrided: 100 Instrument Used: 5mm curette Tissue Removed: subcutaneous tissue, senescent cells Severity: Fat Layer Exposed Amount of bleeding with debridement: Mild Bleeding Controlled with: Pressure and Compression and gauze Patient tolerated procedure: Patient tolerated procedure well Post-Debridement Measurements and Additional Note: Post-Debridement Measurements/Treatment WC - Nurse 1 - General Ulcer Assessment Start: 09/28/23 14:10 Freq: Status: Active Protocol: [place] Activity Type Activity Date Activity User E-sign Co-sign Detail Recorded Client Recorded Date Recorded By Document 09/28/23 14:10 KW Desktop 09/28/23 14:19 KW Document 10/05/23 09:53 DL Desktop 10/05/23 10:00 DL Document 10/12/23 11:11 KW wound center 10/12/23 11:20 KW 09/28/23 10/05/23 10/12/23 14:10 09:53 11:11 WC - Today's Visit Information Type of service Follow-up Visit Follow-up Visit Follow-up Visit (Physician/NOTCHED BLADE LOADER (Physician/NOTCHED BLADE LOADER (Physician/NOTCHED BLADE LOADER ) ) ) Arrival Mode Ambulatory Ambulatory Ambulatory Patient Identification Verified (Name & Yes Yes Yes ) Height and Weight Body Mass Index (BMI) 27.6 27.6 27.6 BMI Classification Overweight Overweight Overweight Vital Signs Temperature (97.8 F-99.1 F) 98.5 F 99.1 F 97.9 F Temperature Source Temporal Temporal Temporal Pulse Rate (60-100) 90 93 88 Pulse Location Monitor Monitor Monitor Respiratory Rate (12-18) 18 20 H 18 Respiratory rate source Observation Observation Observation Oxygen Delivery Method Room Air Room Air Blood Pressure (90/60-120/80) 158/81 H 154/71 H 142/77 H Blood Pressure Mean (mm Hg) 106 98 98 Source Monitor Monitor Monitor Position Sitting Semi-Fowlers Blood Pressure Location Left Arm Left Arm History Since Last Visit- (Skip if this is Patient's initial visit) Have you changed medications since your No No No last visit? Any new allergies or adverse reactions No No No Had a fall/change in ADL's that may No No No increase risk of falls Signs or symptoms of abuse and/or No No No neglect since last visit Have you been in the hospital since your No No No last visit? Has dressing in place as prescribed Yes Yes Yes Has compression in place as prescribed Yes Yes Yes Has offloadiing in place as prescribed N/A N/A N/A Experienced any changes in pain level or No No No management Left Footwear Regular Shoe Regular Shoe Right Footwear Regular Shoe Regular Shoe Pain Scale: 0-10 Numeric Is Patient Pain Free? Yes Yes Yes WC - Nurse 1 - General Ulcer Measurement Start: 09/28/23 14:10 Freq: Status: Active Protocol: Activity Type Activity Date Activity User E-sign Co-sign Detail Recorded Client Recorded Date Recorded By Document 09/28/23 14:10 KW Desktop 09/28/23 14:19 KW Document 10/05/23 09:53 DL Desktop 10/05/23 10:00 DL Document 10/12/23 11:11 KW wound center 10/12/23 11:20 KW 09/28/23 10/05/23 10/12/23 14:10 09:53 11:11 Wound Center Nurse 1 #3 L Calf -Combined with other wound No -Current Size (cm) - Length 7.1 8 7.8 -Current Size (cm) - Width 7.4 9 7.6 -Current Size (cm) - Depth 0.1 0.1 0.1 -Total Square Cm 52.54 72 59.28 -Epithelialization Small 1-33% -Tunneling No -Undermining/Tunneling No -Circular Undermining No -Exudate Amt Medium Medium Small -Exudate Type Serosanguineous Serosanguineous Serosanguineous -Wound Margin Distinct, Distinct, Distinct, Outline Outline Outline Attached Attached Attached -Granulation Amt Large (67-100%) Medium (34-66%) Large (67-100%) -Granulation Quality Red Red [place] -Slough/Fibrin Yes -Necrosis Amt Small (1-33%) Medium (34-66%) -Necrotic Tissue Type Adherent Slough Adherent Slough -Structure Exposed N/A -Texture (Karen-wound Skin Appearance) Assessed, Friable, Assessed Scarring Scarring -Moisture (Karen-wound Skin Appearance) Assessed,Dry/ No Abnormality, Assessed Scaly Maceration -Color (Karen-wound Skin Appearance) Assessed No Abnormality Assessed -Temperature (Karen-wound Skin No Abnormality No Abnormality No Abnormality Appearance) (Pt Warm) (Pt Warm) (Pt Warm) -Tenderness on Palpation (Karen-wound No No No Skin Appearance) -Ulcer Cleansing Soap and Water Soap and Water Soap and Water -Foul Odor after Cleansing No No No -Anesthetic Used 4% Lidocaine 5% Lidocaine 4% Lidocaine Solution Gel Solution -Wound Comment(s) crusty boarders , theraskin product still attached Lower Limb Edema Present Yes Left Calf (cm) 40.6 39 38 Left Ankle (cm) 21 22.2 22 WC - Nurse 2 - General Ulcer CM Notes Start: 09/28/23 14:10 Freq: Status: Active Protocol: Activity Type Activity Date Activity User E-sign Co-sign Detail Recorded Client Recorded Date Recorded By Document 09/28/23 14:54 GM Desktop 09/28/23 15:24 GM Edit Result 09/28/23 14:54 GM (1) [id number] 09/30/23 08:50 JF Edit Result 09/28/23 14:54 GM (2) [id number] 09/30/23 08:58 GM Document 09/28/23 15:24 GM Desktop 09/28/23 15:25 GM Edit Result 09/28/23 15:24 GM (3) [id number] 09/30/23 08:58 GM Document 09/28/23 15:25 GM Desktop 09/28/23 15:27 GM Edit Result 09/28/23 15:25 GM (4) [id number] 09/30/23 08:55 GM Document 10/05/23 10:13 DS Desktop 10/05/23 10:22 DS Document 10/12/23 11:26 [id number] 10/12/23 11:34 DS (1) #3 L Calf - Theraskin - 3TS (3 SQ CM) (per sq cm) 6.5 => 6 - Theraskin - 100TSXS (6 SQ CM) (per sq => 6 cm) (2) #3 L Calf - Wound Comment(s) => Theraskin #2 [id number] exp 05/06/2028 3 sq cm => Theraskin #3 [id number] exp 04/25/2028 3 sq cm (3) #3 L Calf - Bioengineered Tissue Yes => - Type of Bioengineered Tissue Theraskin => - Expiration Date 04/25/28 => - Product Lot Number [id number] => - Percent Used 100 => - Lot number of Saline Used [id number] => - Theraskin - 3TS (3 SQ CM) (per sq cm) 3 => (4) #3 L Calf - Bioengineered Tissue Yes => - Type of Bioengineered Tissue Theraskin => - Expiration Date 04/25/28 => - Product Lot Number [id number] => - Percent Used 100 => - Lot number of Saline Used [id number] => - Theraskin - 3TS (3 SQ CM) (per sq cm) 3 => 09/28/23 09/28/23 09/28/23 14:54 15:24 15:25 Wound Center Nurse 2 #3 L Calf -Time 14:54 15:24 15:26 -Correct Patient Yes Yes Yes -Correct Side, Site, Position Yes Yes Yes -Correct Procedure Yes Yes Yes -Procedure Performed Yes -Type of Procedure Debridement -Clinical Debridement Subcutaneous -Tissue Removed Subcutaneous -Post Debridement (cm) - Length 10.2 -Post Debridement (cm) - Width 4.5 -Post Debridement (cm) - Depth 0.1 -Total Square (Post) (cm) 45.90 -Area of Debridement (cm) - Length 10.2 -Area of Debridement (cm) - Width 4.5 -Total Square (Area) (cm) 45.90 -Tunneling No -Undermining/Tunneling No -Circular Undermining No -Wound/Ulcer Outcome Not Healed -Ulcer Cleansing Rinsed/ Irrigated with Saline -Foul Odor after Cleansing No -Bioengineered Tissue Yes -Type of Bioengineered Tissue Theraskin -Expiration Date 11/19/27 -Product Lot Number [id number] -Percent Used 100 -Lot number of Saline Used -Bleeding Controlled with -Treatment Response -Debridement - Subq, 1st 20sq cm No -Apply Skin Sub - 1st 25 sq cm - Legs 1 -Apply Skin Sub - each addt'l 25 sq cm - Legs -Theraskin - 3TS (3 SQ CM) (per sq cm) 6 -Theraskin - 100TSXS (6 SQ CM) (per sq 6 cm) -Theraskin - 26TS (26 SQ CM) (per sq cm) -Theraskin - 102TSL (39 SQ CM) (per sq cm) -Wound Comment(s) Theraskin #2 [id number] exp 05/06/2028 3 sq cm Theraskin #3 [id number] exp 04/25/2028 3 sq cm Pain Scale: 0-10 Numeric Is Patient Pain Free? Yes Yes Yes 10/05/23 10/12/23 10:13 11:26 Wound Center Nurse 2 #3 L Calf -Time 10:13 11:26 -Correct Patient Yes Yes -Correct Side, Site, Position Yes Yes -Correct Procedure Yes Yes -Procedure Performed Yes Yes -Type of Procedure Debridement Debridement -Clinical Debridement Subcutaneous Subcutaneous -Tissue Removed Subcutaneous Subcutaneous -Post Debridement (cm) - Length 10.0 9.0 -Post Debridement (cm) - Width 3.5 2.8 -Post Debridement (cm) - Depth 0.1 0.1 -Total Square (Post) (cm) 35.00 25.20 -Area of Debridement (cm) - Length 10.0 9.0 -Area of Debridement (cm) - Width 3.5 2.8 -Total Square (Area) (cm) 35.00 25.20 -Tunneling No -Undermining/Tunneling No -Circular Undermining No -Wound/Ulcer Outcome Not Healed Not Healed -Ulcer Cleansing Rinsed/ Rinsed/ Irrigated with Irrigated with Saline Saline -Foul Odor after Cleansing -Bioengineered Tissue Yes -Type of Bioengineered Tissue Theraskin Theraskin -Expiration Date 12/01/27 01/13/28 -Product Lot Number [id number] -Percent Used 100 100 -Lot number of Saline Used [id number] -Bleeding Controlled with Pressure Pressure -Treatment Response Procedure Procedure Tolerated Well Tolerated Well -Debridement - Subq, 1st 20sq cm No No -Apply Skin Sub - 1st 25 sq cm - Legs 1 1 -Apply Skin Sub - each addt'l 25 sq cm 1 1 - Legs -Theraskin - 3TS (3 SQ CM) (per sq cm) -Theraskin - 100TSXS (6 SQ CM) (per sq cm) -Theraskin - 26TS (26 SQ CM) (per sq 26 cm) -Theraskin - 102TSL (39 SQ CM) (per sq 39 cm) -Wound Comment(s) Pain Scale: 0-10 Numeric Is Patient Pain Free? Yes Yes - Nurse 3 - General Ulcer D/C NN Start: 09/28/23 14:10 Freq: Status: Active Protocol: Activity Type Activity Date Activity User E-sign Co-sign Detail Recorded Client Recorded Date Recorded By Document 09/28/23 15:30 KW Desktop 09/28/23 15:30 KW Document 10/05/23 10:39 DL Desktop 10/05/23 10:41 DL Document 10/12/23 11:43 KW wound center 10/12/23 11:43 KW 09/28/23 10/05/23 10/12/23 15:30 10:39 11:43 Wound Care Center Nurse 3 #3 L Calf -Ulcer Cleansing Not Cleansed -Foul Odor after Cleansing No -Primary Dressing Applied Aquacel Extra -Other Dressing Theraskin -Primary Dressing Covered/Secured with Dry Gauze & Dry Gauze & Dry Gauze & Roll Gauze, Roll Gauze, Roll Gauze, Secured with Secured with Secured with Tape Tape Tape -Other Covering tubigrip -Aquacel Extra 1 Treatment Response Procedure Tolerated Well Pain Scale: 0-10 Numeric Is Patient Pain Free? 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 100% of the product was used. Theraskin was secured with Dermabond. Skin prep used surrounding the ulcer. Wound veil covered the Theraskin and secured with Steri-strips. On the two areas that were not covered by the Theraskin, will place Aqucel extra and change them at the time she changes the outer dressings. On the most distal edge where the theraskin did not cover, placed Collagen hydrogel to this area. Cover with ABD and kerlix. Instructed her to change the outer dressing every other day as needed. She is not to get this area wet. If she showers, she is to use a shower boot/cast cover. Compression - Double tubigrip. Stressed importance of keeping legs elevated when sitting to help prevent edema. A wound culture was obtained on 08/24/23 which was positive for Acinetobacter baumannii and she was treated with Augmentin. Wound cultures obtained 07/27/23 which were positive for Pseudomonas aeruginosa, MRSA, Corynebacterium striatum, and Anaerobic cocci. She was placed on Flagyl and finished them. She was placed on Levaquin and is tolerating them thus far. She was placed on Linezolid and stated she had some visual problems and stopped the antibiotic. She had burning esophageal pain from the Clindamycin, so she stopped that. Followup one week, may need to be with another provider since the holiday is next Thursday.
[2023-10-21 10:30] VITALS: BP 145/74; PULSE 90; RESP 18; TEMP 35.6; BMI 27.6
--- NOTE | 2023-10-21 10:47 | NURSING ---
Theraskin #[address] debridement done around the theraskin to outer edges of the wound. wound then covered with wound veil/steri strips and then aquacel extra, abd and kerlix
--- NOTE | 2023-10-21 13:25 | PN.PCM_ITS ---
History of Present Illness Date of Service: 10/21/23 Chief Complaint: Left lateral leg ulcer that was initially caused by trauma from bumping leg on edge of car. History of Wound: Patient is 83 year female who presents for further evaluation of an ulcer on her left posterolateral leg. She initially bumped her leg on her car frame when removing something from her car on 05/22/24 and needed sutures to her left anterior leg. She then developed increased pain, swelling and a hematoma to her left leg and was seen in the ED very early on 05/27/23. She is on chronic anticoagulation for Afib, her INR was 5.3 at that time. She was discharged home with follow up with her PCP later that day. She returned to the ED via squad later that day after she experienced a large amount of bleeding. The hematoma was evacuated in the ED under sedation. She was admitted to the hospital and she required transfusion of 1 unit PRBC when her hemoglobin dropped from 11 to 6.9. She was transferred to [facility] for a little while. 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 She states she is doing well at home. Her daughter is helping her with her dressing changes. Wound care - Fibracol. She has a history of Afib, usp coagulation, mitral valve regurgitation, cardiac ablation, cardiac pace maker, DVT, HTN, hyperlipidemia, rheumatoid arthritis, cataract removal, and multiple wounds in the past. Wound cultures obtained 07/27/23 which were positive for Pseudomonas aeruginosa, MRSA, Corynebacterium striatum, and Anaerobic cocci. She was placed on Flagyl and finished them. She was placed on Levaquin and is tolerating them thus far. She was placed on Linezolid and stated she had some visual problems and stopped the antibiotic. Stopped the Clindamycin due severe heart burn. Re-cultured the ulcer on 08/25/23 and it was positive for Acinetobacter baumannii. Started her on Augmentin, which she has tolerated in the past. Today she denies fever, chills, nausea or vomiting. Her appetite is good. Patient was interested in advanced skin substitute grafts to help the ulcer to heal. She has been approved for Thera-Skin. Progress of Wound: Left posterolateral leg ulcer is smaller in size.The wound bed is beefy pink. She has been approved for Theraskin and #6 was placed last week. This week I was seeing patient for [facility] nurse practitioner and the TheraSkin has not been absorbed yet. Looks very clean I rinsed it debrided around the edges get rid of any developing old dried blood and none vital skin. Removed. And will leave it on for another week and she can decide if she wants to apply 1 over that. Adhered well to wound base. Skin is flat there is good approximation to the outer skin. Subjective Subjective Patient was very happy with outcomes Objective Data Objective Data As stated above well-approximated TheraSkin still viable and still apparent will not come off will not build on it until that once absorbed we will leave on for 1 more week. Patient can follow-up with Daiana next week. Debrided around the edges and cleaned up wound rinsed well and reapply dressing Vital Signs: Vital Signs Temp Pulse Resp BP O2 Del Method 96.1 F L 90 18 145/74 H Room Air 10/21/23 10:30 10/21/23 10:30 10/21/23 10:30 10/21/23 10:30 10/12/23 11:11 Oxygen Delivery Method Room Air Weight: 170 lb 12.573 oz Body Mass Index (BMI) 27.6 Physical Exam Const alert, oriented x3 and no apparent distress General Appearance: cooperative HEENT normocephalic Head and Scalp: atraumatic Eyes General Eye: normal appearance of both eyes Neck full ROM Lymph Lymphatic: no lymphedema noted Resp normal respiratory effort, normal air movement and clear to auscultation bilaterally Effort and Inspection: able to speak in complete sentences Cardio regular rate and regular rhythm Cardio Narrative: Has history of Afib, rhythm is regular at this time GI normal to inspection, nondistended, normoactive bowel sounds and soft to palpation Back/Spine normal ROM Extremity normal capillary refill Extremity Narrative: +1 edema left lower extremity. Peripheral Pulses: Yes dorsalis pedis pulses present bilateral 2+ Skin Wound Narrative: Left posterolateral leg ulcer is beefy pink with granulation tissue present. There is dry scabbing surrounding the ulcer. There are several skin islands in the lower posterior portion of the ulcer. Karen wound is stable. On her anterior leg where the initial injury was with sutures, there are several areas that have some depth that when pressed, there is thick white/kenyon drainage. There is no erythema or odor in the area. Neuro oriented x3 and moves all extremities Psych mental status grossly normal, thought process normal and cooperative Appearance: grossly normal Debridement Note Debridement Note Wound debrided: #3 - Left posterolateral leg ulcer Laterality: Left Wound Grade/Stage: Grade III Type of Debridement: Excisional debridement Anesthesia Used: 5% Lidocaine Gel and Cetacaine Depth: Down to and including healthy tissue Percentage of wound debrided: 100 Instrument Used: 5mm curette and Forceps Tissue Removed: subcutaneous tissue, senescent cells Severity: Limited To Skin Breakdown Amount of bleeding with debridement: None Bleeding Controlled with: Pressure Patient tolerated procedure: Patient tolerated procedure well Post-Debridement Measurements and Additional Note: Post-Debridement Measurements/Treatment - Nurse 1 - General Ulcer Assessment Start: 09/28/23 14:10 Freq: Status: Active Protocol: [place] Activity Type Activity Date Activity User E-sign Co-sign Detail Recorded Client Recorded Date Recorded By Document 09/28/23 14:10 KW Desktop 09/28/23 14:19 KW Document 10/05/23 09:53 DL Desktop 10/05/23 10:00 DL Document 10/12/23 11:11 KW wound center 10/12/23 11:20 KW Document 10/21/23 10:30 RB wound center 10/21/23 10:32 RB 09/28/23 10/05/23 10/12/23 14:10 09:53 11:11 - Today's Visit Information Type of service Follow-up Visit Follow-up Visit Follow-up Visit (Physician/FINISHER FINE DIAMOND DIES (Physician/FINISHER FINE DIAMOND DIES (Physician/FINISHER FINE DIAMOND DIES ) ) ) Arrival Mode Ambulatory Ambulatory Ambulatory Transfer Assistance Patient Identification Verified (Name & Yes Yes Yes ) Patient Requires Transmission-Based Precautions Height and Weight Body Mass Index (BMI) 27.6 27.6 27.6 BMI Classification Overweight Overweight Overweight Vital Signs Temperature (97.8 F-99.1 F) 98.5 F 99.1 F 97.9 F Temperature Source Temporal Temporal Temporal Pulse Rate (60-100) 90 93 88 Pulse Location Monitor Monitor Monitor Respiratory Rate (12-18) 18 20 H 18 Respiratory rate source Observation Observation Observation Oxygen Delivery Method Room Air Room Air Blood Pressure (90/60-120/80) 158/81 H 154/71 H 142/77 H Blood Pressure Mean (mm Hg) 106 98 98 Source Monitor Monitor Monitor Position Sitting Semi-Fowlers Blood Pressure Location Left Arm Left Arm History Since Last Visit- (Skip if this is Patient's initial visit) Have you changed medications since your No No No last visit? Any new allergies or adverse reactions No No No Had a fall/change in ADL's that may No No No increase risk of falls Signs or symptoms of abuse and/or No No No neglect since last visit Have you been in the hospital since your No No No last visit? Has dressing in place as prescribed Yes Yes Yes Has compression in place as prescribed Yes Yes Yes Has offloadiing in place as prescribed N/A N/A N/A Experienced any changes in pain level or No No No management Left Footwear Regular Shoe Regular Shoe Right Footwear Regular Shoe Regular Shoe Pain Scale: 0-10 Numeric Is Patient Pain Free? Yes Yes Yes 10/21/23 10:30 WC - Today's Visit Information Type of service Follow-up Visit (Physician/FINISHER FINE DIAMOND DIES ) Arrival Mode Ambulatory Transfer Assistance None Patient Identification Verified (Name & Yes ) Patient Requires Transmission-Based No Precautions Height and Weight Body Mass Index (BMI) 27.6 BMI Classification Overweight Vital Signs Temperature (97.8 F-99.1 F) 96.1 F L Temperature Source Temporal Pulse Rate (60-100) 90 Pulse Location Monitor Respiratory Rate (12-18) 18 Respiratory rate source Observation Oxygen Delivery Method Blood Pressure (90/60-120/80) 145/74 H Blood Pressure Mean (mm Hg) 97 Source Monitor Position Semi-Fowlers Blood Pressure Location Left Arm History Since Last Visit- (Skip if this is Patient's initial visit) Have you changed medications since your No last visit? Any new allergies or adverse reactions No Had a fall/change in ADL's that may No increase risk of falls Signs or symptoms of abuse and/or No neglect since last visit Have you been in the hospital since your No last visit? Has dressing in place as prescribed Yes Has compression in place as prescribed Yes Has offloadiing in place as prescribed No Experienced any changes in pain level or No management Left Footwear Right Footwear Pain Scale: 0-10 Numeric Is Patient Pain Free? Yes - Nurse 1 - General Ulcer Measurement Start: 09/28/23 14:10 Freq: Status: Active Protocol: Activity Type Activity Date Activity User E-sign Co-sign Detail Recorded Client Recorded Date Recorded By Document 09/28/23 14:10 KW Desktop 09/28/23 14:19 KW Document 10/05/23 09:53 DL Desktop 10/05/23 10:00 DL Document 10/12/23 11:11 KW wound center 10/12/23 11:20 KW Document 10/21/23 10:30 RB wound center 10/21/23 10:32 RB 09/28/23 10/05/23 10/12/23 14:10 09:53 11:11 Wound Center Nurse 1 #3 L Calf -Combined with other wound No -Current Size (cm) - Length 7.1 8 7.8 -Current Size (cm) - Width 7.4 9 7.6 -Current Size (cm) - Depth 0.1 0.1 0.1 -Total Square Cm 52.54 72 59.28 -Photo Taken -Epithelialization Small 1-33% -Tunneling No -Undermining/Tunneling No -Circular Undermining No -Exudate Amt Medium Medium Small -Exudate Type Serosanguineous Serosanguineous Serosanguineous -Wound Margin Distinct, Distinct, Distinct, Outline Outline Outline Attached Attached Attached -Granulation Amt Large (67-100%) Medium (34-66%) Large (67-100%) -Granulation Quality Red Red [place] -Slough/Fibrin Yes -Necrosis Amt Small (1-33%) Medium (34-66%) -Necrotic Tissue Type Adherent Slough Adherent Slough -Structure Exposed N/A -Texture (Karen-wound Skin Appearance) Assessed, Friable, Assessed Scarring Scarring -Moisture (Karen-wound Skin Appearance) Assessed,Dry/ No Abnormality, Assessed Scaly Maceration -Color (Karen-wound Skin Appearance) Assessed No Abnormality Assessed -Temperature (Karen-wound Skin No Abnormality No Abnormality No Abnormality Appearance) (Pt Warm) (Pt Warm) (Pt Warm) -Tenderness on Palpation (Karen-wound No No No Skin Appearance) -Ulcer Cleansing Soap and Water Soap and Water Soap and Water -Foul Odor after Cleansing No No No -Anesthetic Used 4% Lidocaine 5% Lidocaine 4% Lidocaine Solution Gel Solution -Wound Comment(s) crusty boarders , theraskin product still attached Lower Limb Edema Present Yes Left Calf (cm) 40.6 39 38 Left Ankle (cm) 21 22.2 22 10/21/23 10:30 Wound Center Nurse 1 #3 L Calf -Combined with other wound No -Current Size (cm) - Length 6.5 -Current Size (cm) - Width 5.5 -Current Size (cm) - Depth 0.1 -Total Square Cm 35.75 -Photo Taken Yes -Epithelialization -Tunneling No -Undermining/Tunneling No -Circular Undermining No -Exudate Amt Medium -Exudate Type Serosanguineous -Wound Margin Distinct, Outline Attached -Granulation Amt Medium (34-66%) -Granulation Quality [place] -Slough/Fibrin Yes -Necrosis Amt Medium (34-66%) -Necrotic Tissue Type Adherent Slough -Structure Exposed N/A -Texture (Karen-wound Skin Appearance) Assessed -Moisture (Karen-wound Skin Appearance) Assessed -Color (Karen-wound Skin Appearance) Assessed -Temperature (Karen-wound Skin No Abnormality Appearance) (Pt Warm) -Tenderness on Palpation (Karen-wound No Skin Appearance) -Ulcer Cleansing Wound Cleanser -Foul Odor after Cleansing No -Anesthetic Used 4% Lidocaine Solution -Wound Comment(s) Lower Limb Edema Present Yes Left Calf (cm) 39 Left Ankle (cm) 22 WC - Nurse 2 - General Ulcer CM Notes Start: 09/28/23 14:10 Freq: Status: Active Protocol: Activity Type Activity Date Activity User E-sign Co-sign Detail Recorded Client Recorded Date Recorded By Document 09/28/23 14:54 GM Desktop 09/28/23 15:24 GM Edit Result 09/28/23 14:54 GM (1) [id number] 09/30/23 08:50 JF Edit Result 09/28/23 14:54 GM (2) [id number] 09/30/23 08:58 GM Document 09/28/23 15:24 GM Desktop 09/28/23 15:25 GM Edit Result 09/28/23 15:24 GM (3) [id number] 09/30/23 08:58 GM Document 09/28/23 15:25 GM Desktop 09/28/23 15:27 GM Edit Result 09/28/23 15:25 GM (4) [id number] 09/30/23 08:55 GM Document 10/05/23 10:13 DS Desktop 10/05/23 10:22 DS Document 10/12/23 11:26 DS [id number] 10/12/23 11:34 DS Document 10/21/23 10:46 DS [id number] 10/21/23 10:50 DS (1) #3 L Calf - Theraskin - 3TS (3 SQ CM) (per sq cm) 6.5 => 6 - Theraskin - 100TSXS (6 SQ CM) (per sq => 6 cm) (2) #3 L Calf - Wound Comment(s) => Theraskin #2 [id number] exp 05/06/2028 3 sq cm => Theraskin #3 [id number] exp 04/25/2028 3 sq cm (3) #3 L Calf - Bioengineered Tissue Yes => - Type of Bioengineered Tissue Theraskin => - Expiration Date 04/25/28 => - Product Lot Number [id number] => - Percent Used 100 => - Lot number of Saline Used [id number] => - Theraskin - 3TS (3 SQ CM) (per sq cm) 3 => (4) #3 L Calf - Bioengineered Tissue Yes => - Type of Bioengineered Tissue Theraskin => - Expiration Date 04/25/28 => - Product Lot Number [id number] => - Percent Used 100 => - Lot number of Saline Used [id number] => - Theraskin - 3TS (3 SQ CM) (per sq cm) 3 => 09/28/23 09/28/23 09/28/23 14:54 15:24 15:25 Wound Center Nurse 2 #3 L Calf -Time 14:54 15:24 15:26 -Correct Patient Yes Yes Yes -Correct Side, Site, Position Yes Yes Yes -Correct Procedure Yes Yes Yes -Procedure Performed Yes -Type of Procedure Debridement -Clinical Debridement Subcutaneous -Tissue Removed Subcutaneous -Post Debridement (cm) - Length 10.2 -Post Debridement (cm) - Width 4.5 -Post Debridement (cm) - Depth 0.1 -Total Square (Post) (cm) 45.90 -Area of Debridement (cm) - Length 10.2 -Area of Debridement (cm) - Width 4.5 -Total Square (Area) (cm) 45.90 -Tunneling No -Undermining/Tunneling No -Circular Undermining No -Wound/Ulcer Outcome Not Healed -Ulcer Cleansing Rinsed/ Irrigated with Saline -Foul Odor after Cleansing No -Bioengineered Tissue Yes -Type of Bioengineered Tissue Theraskin -Expiration Date 11/19/27 -Product Lot Number [id number] -Percent Used 100 -Lot number of Saline Used -Bleeding Controlled with -Treatment Response -Debridement - Subq, 1st 20sq cm No -Apply Skin Sub - 1st 25 sq cm - Legs 1 -Apply Skin Sub - each addt'l 25 sq cm - Legs -Theraskin - 3TS (3 SQ CM) (per sq cm) 6 -Theraskin - 100TSXS (6 SQ CM) (per sq 6 cm) -Theraskin - 26TS (26 SQ CM) (per sq cm) -Theraskin - 102TSL (39 SQ CM) (per sq cm) -Wound Comment(s) Theraskin #2 [id number] exp 05/06/2028 3 sq cm Theraskin #3 [id number] exp 04/25/2028 3 sq cm Pain Scale: 0-10 Numeric Is Patient Pain Free? Yes Yes Yes 10/05/23 10/12/23 10/21/23 10:13 11:26 10:46 Wound Center Nurse 2 #3 L Calf -Time 10:13 11:26 10:46 -Correct Patient Yes Yes Yes -Correct Side, Site, Position Yes Yes Yes -Correct Procedure Yes Yes Yes -Procedure Performed Yes Yes Yes -Type of Procedure Debridement Debridement Debridement -Clinical Debridement Subcutaneous Subcutaneous Subcutaneous -Tissue Removed Subcutaneous Subcutaneous Subcutaneous -Post Debridement (cm) - Length 10.0 9.0 6.4 -Post Debridement (cm) - Width 3.5 2.8 2.5 -Post Debridement (cm) - Depth 0.1 0.1 0.1 -Total Square (Post) (cm) 35.00 25.20 16.00 -Area of Debridement (cm) - Length 10.0 9.0 6.4 -Area of Debridement (cm) - Width 3.5 2.8 2.5 -Total Square (Area) (cm) 35.00 25.20 16.00 -Tunneling No No -Undermining/Tunneling No No -Circular Undermining No No -Wound/Ulcer Outcome Not Healed Not Healed Not Healed -Ulcer Cleansing Rinsed/ Rinsed/ Rinsed/ Irrigated with Irrigated with Irrigated with Saline Saline Saline -Foul Odor after Cleansing -Bioengineered Tissue Yes -Type of Bioengineered Tissue Theraskin Theraskin -Expiration Date 12/01/27 01/13/28 -Product Lot Number [id number] -Percent Used 100 100 -Lot number of Saline Used [id number] -Bleeding Controlled with Pressure Pressure Pressure -Treatment Response Procedure Procedure Procedure Tolerated Well Tolerated Well Tolerated Well -Debridement - Subq, 1st 20sq cm No No Yes -Apply Skin Sub - 1st 25 sq cm - Legs 1 1 -Apply Skin Sub - each addt'l 25 sq cm 1 1 - Legs -Theraskin - 3TS (3 SQ CM) (per sq cm) -Theraskin - 100TSXS (6 SQ CM) (per sq cm) -Theraskin - 26TS (26 SQ CM) (per sq 26 cm) -Theraskin - 102TSL (39 SQ CM) (per sq 39 cm) -Wound Comment(s) Pain Scale: 0-10 Numeric Is Patient Pain Free? Yes Yes Yes 10/21/23 10:47 Nursing Note by Jamal Rocha Theraskin #[address] debridement done around the theraskin to outer edges of the wound. wound then covered with wound veil/steri strips and then aquacel extra, abd and kerlix Initialized on 10/21/23 10:47 - END OF NOTE WC - Nurse 3 - General Ulcer D/C NN Start: 09/28/23 14:10 Freq: Status: Active Protocol: Activity Type Activity Date Activity User E-sign Co-sign Detail Recorded Client Recorded Date Recorded By Document 09/28/23 15:30 KW Desktop 09/28/23 15:30 KW Document 10/05/23 10:39 DL Desktop 10/05/23 10:41 DL Document 10/12/23 11:43 KW wound center 10/12/23 11:43 KW Document 10/21/23 11:02 DL [id number] 10/21/23 11:03 DL 09/28/23 10/05/23 10/12/23 15:30 10:39 11:43 Wound Care Center Nurse 3 #3 L Calf -Ulcer Cleansing Not Cleansed -Foul Odor after Cleansing No -Primary Dressing Applied Aquacel Extra -Other Dressing Theraskin -Primary Dressing Covered/Secured with Dry Gauze & Dry Gauze & Dry Gauze & Roll Gauze, Roll Gauze, Roll Gauze, Secured with Secured with Secured with Tape Tape Tape -Other Covering tubigrip -Aquacel Extra 1 Treatment Response Procedure Tolerated Well Pain Scale: 0-10 Numeric Is Patient Pain Free? Yes Yes Yes WC - Visit Discharge Discharge Condition Stable Stable Stable Ambulatory Status Ambulatory Ambulatory,Cane Ambulatory Transportation Private Auto Private Auto Private Auto Medication Reconcilliation completed & No No provided to patient/care provider Clinical Summary of Care Provided Yes Yes 10/21/23 11:02 Wound Care Center Nurse 3 #3 L Calf -Ulcer Cleansing Not Cleansed -Foul Odor after Cleansing No -Primary Dressing Applied Aquacel Extra -Other Dressing Epifix -Primary Dressing Covered/Secured with Dry Gauze & Roll Gauze, Secured with Tape -Other Covering tubigrip -Aquacel Extra 1 Treatment Response Procedure Tolerated Well Pain Scale: 0-10 Numeric Is Patient Pain Free? 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: CODE(S): L97.902 - Non-pressure chronic ulcer of unspecified part of unspecified lower leg with fat layer exposed QUALIFIERS: Laterality: left Qualified Code(s): L97.922 - Non- pressure chronic ulcer of unspecified part of left lower leg with fat layer exposed (2) Contusion of left lower leg, sequela: CODE(S): S80.12XS - Contusion of left lower leg, sequela (3) Hematoma: CODE(S): T14.8XXA - Other injury of unspecified body region, initial encounter (4) Chronic anticoagulation: CODE(S): Z79.01 - bed bug exterminator (current) use of 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s PLAN: Plan Wound care - Theraskin #6 was placed today. 100% of the product was used. Theraskin was secured with Dermabond. Skin prep used surrounding the ulcer. Wound veil covered the Theraskin and secured with Steri-strips. On the two areas that were not covered by the Theraskin, will place Aqucel extra and change them at the time she changes the outer dressings. Cover with ABD and kerlix. Instructed her to change the outer dressing every other day as needed. She is not to get this area wet. If she showers, she is to use a shower boot/cast cover. Compression - Double tubigrip. Stressed importance of keeping legs elevated when sitting to help prevent edema. Follow-up next week with her regular provider
== END 2023-10-23 23:59 | disposition home or self-care (01) ==
LOC: WC 10:00
PROVIDERS: PCP Family Medicine Geriatric Medicine; Referring Provider Family Medicine Geriatric Medicine; Visit Provider Nurse Practitioner Family
DX: L97.902 Non-pressure chronic ulcer of unspecified part of unspecified lower leg with fat layer exposed (principal); S80.12XS Contusion of left lower leg, sequela; T14.8XXA Other injury of unspecified body region, initial encounter; Z79.01 Long term (current) use of 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s; I10 Essential (primary) hypertension; E78.5 Hyperlipidemia, unspecified; Z95.0 Presence of cardiac pacemaker; Z86.718 Personal history of other venous thrombosis and embolism; Z86.14 Personal history of Methicillin resistant Staphylococcus aureus infection
CPT/HCPCS: 11042; 15271; 15272; Q4121

== ENCOUNTER → 2023-11-05 | Outpatient (CLI) | payer MEDICARE, OTHER, SELFPAY ==
[2023-11-05 13:12] LABS: Absolute Lymphocyte Count 1.28 X10^3/uL (0.83-4.51); Basophil# 0.03 X10^3/uL; Basophil% 0.3 % (0-1); Eosinophil# 0.22 X10^3/uL; Eosinophils% 2.4 % (0-5); Hematocrit 39.4 % (37-47); Hemoglobin 12.2 g/dL (12.0-15.0); Lymphocyte # 1.28 X10^3/ul (0.83-4.51); Mean Corpuscular Hgb 27.9 pg (27.0-32.0); Mean Corpuscular Volume 90.2 fL (81-99); Mean Platelet Vol. 11.1 fl (6.2-12.0); Monocyte# 0.53 X10^3/uL; Monocyte% 5.8 % (0-10); NRBC Flagged by Analyzer 0 % (0-5); Neutrophil # 7.04 X10^3/uL (2.7-7.7); Neutrophil % 77.3 % (47-70); Platelet Count 217 K/mm3 (150-450); RBC Distribution Width CV 17.6 % (11.6-14.6); RBC Distribution Width SD 58.4 fl (35.1-43.9); Red Blood Count 4.37 M/mm3 (4.2-5.4); White Blood Count 9.1 K/mm3 (4.4-11.0)
[2023-11-05 13:50] LABS: Vitamin D,25 Hydroxy 50.3 ng/mL
[2023-11-05 14:18] LABS: ALB/GLOB Ratio 0.9 RATIO (0.9-2.4); AST(SGOT) 25 U/L (15-37); Alanine Aminotransfer ALT/SGPT 27 U/L (13-56); Albumin, Serum 3.2 g/dL (3.2-5.0); Alkaline Phosphatase 91 U/L (45-117); Anion Gap 4 (5-15); BUN 27 mg/dL (7-18); BUN/Creat Ratio 35.3 RATIO (10-20); Calcium,Total 8.6 mg/dL (8.5-10.1); Chloride 109 mmol/L (98-107); Creatinine, Serum 0.76 mg/dL (0.55-1.02); EST Glomerular Filtration Rate 77 mL/min (>60); Est Glom Filt Rate - Afr Amer 93 mL/min (>60); Ferritin 47 ng/mL (8-252); Globulin 3.7 g/dL (2.2-4.2); Glucose 82 mg/dL (74-106); Iron 60 ug/dL (50-170); Iron Binding Capacity,Total 428 ug/dL (250-450); Potassium 4.3 mmol/L (3.5-5.1); Protein, Total 6.9 g/dL (6.4-8.2); Sodium Level 141 mmol/L (136-145); Thyroid Stim Hormone (TSH) 2.52 uIU/mL (0.358-3.74)
== END | disposition home or self-care (01) ==
PROVIDERS: PCP Family Medicine Geriatric Medicine; Referring Provider Family Medicine Geriatric Medicine; Visit Provider Family Medicine Geriatric Medicine
DX: D50.9 Iron deficiency anemia, unspecified (principal); I10 Essential (primary) hypertension; E55.9 Vitamin D deficiency, unspecified
CPT/HCPCS: 36415; 80053; 82306; 82728; 83540; 83550; 84443; 85025

== ENCOUNTER 2023-11-16 09:45 | Outpatient (RCR) | payer MEDICARE, OTHER, SELFPAY ==
[2023-10-24 01:38] VITALS: BP 142/70; PULSE 82; RESP 18; TEMP 36.7; BMI 27.6
[2023-10-28 10:16] VITALS: BP 145/89; PULSE 86; RESP 18; TEMP 36.6; BMI 27.6
--- NOTE | 2023-10-28 11:30 | PCM.WC.PN ---
History of Present Illness Date of Service: 10/28/23 Chief Complaint: Left lateral leg ulcer that was initially caused by trauma from bumping leg on edge of car. History of Wound: Patient is 83 year female who presents for further evaluation of an ulcer on her left posterolateral leg. She initially bumped her leg on her car frame when removing something from her car on 05/22/24 and needed sutures to her left anterior leg. She then developed increased pain, swelling and a hematoma to her left leg and was seen in the ED very early on 05/27/23. She is on chronic anticoagulation for Afib, her INR was 5.3 at that time. She was discharged home with follow up with her PCP later that day. She returned to the ED via squad later that day after she experienced a large amount of bleeding. The hematoma was evacuated in the ED under sedation. She was admitted to the hospital and she required transfusion of 1 unit PRBC when her hemoglobin dropped from 11 to 6.9. She was transferred to [facility] for a little while. She comes in today for further evaluation of her left posterolateral leg ulcer from a hematoma. She states she is doing well at home. Her daughter is helping her with her dressing changes. Wound care - Fibracol. 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 Wound cultures obtained 07/27/23 which were positive for Pseudomonas aeruginosa, MRSA, Corynebacterium striatum, and Anaerobic cocci. She was placed on Flagyl and finished them. She was placed on Levaquin and is tolerating them thus far. She was placed on Linezolid and stated she had some visual problems and stopped the antibiotic. Stopped the Clindamycin due severe heart burn. Re-cultured the ulcer on 08/25/23 and it was positive for Acinetobacter baumannii. Started her on Augmentin, which she has tolerated in the past. Today she denies fever, chills, nausea or vomiting. Her appetite is good. Patient was interested in advanced skin substitute grafts to help the ulcer to heal. She has been approved for Thera-Skin. Progress of Wound: The wound is doing very well much smaller than what it was originally. The TheraSkin is still visible but impregnated into the wound base trimmed again around the edges and got off any dried skin devitalized tissue fibrin she is got new skin popping through all the little square holes. Try to take off is much as I could of the other TheraSkin and reapplied #7 TheraSkin to the wound base. Patient tolerated procedure well and she can follow-up with her regular provider next Thursday Subjective Subjective Patient is agreeable and happy with plan of care and outcomes Objective Data Objective Data Again no sign of infection skin is nice and supple around the wound filling in nicely the TheraSkin is impregnated into the wound base very well with new skin coming over it. Vital Signs: Vital Signs Temp Pulse Resp BP O2 Del Method 98 F 86 18 145/89 H Room Air 10/28/23 10:16 10/28/23 10:16 10/28/23 10:16 10/28/23 10:16 10/28/23 10:16 Oxygen Delivery Method Room Air Weight: 170 lb 12.573 oz Body Mass Index (BMI) 27.6 Physical Exam Const alert, oriented x3 and no apparent distress General Appearance: cooperative HEENT normocephalic Head and Scalp: atraumatic Eyes General Eye: normal appearance of both eyes Neck full ROM Lymph Lymphatic: no lymphedema noted Resp normal respiratory effort, normal air movement and clear to auscultation bilaterally Effort and Inspection: able to speak in complete sentences Cardio regular rate and regular rhythm Cardio Narrative: Has history of Afib, rhythm is regular at this time GI normal to inspection, nondistended, normoactive bowel sounds and soft to palpation Back/Spine normal ROM Extremity normal capillary refill Extremity Narrative: +1 edema left lower extremity. Peripheral Pulses: Yes dorsalis pedis pulses present bilateral 2+ Skin Wound Narrative: Left posterolateral leg ulcer is beefy pink with granulation tissue present. There is dry scabbing surrounding the ulcer. There are several skin islands in the lower posterior portion of the ulcer. Karen wound is stable. On her anterior leg where the initial injury was with sutures, there are several areas that have some depth that when pressed, there is thick white/kenyon drainage. There is no erythema or odor in the area. Neuro oriented x3 and moves all extremities Psych mental status grossly normal, thought process normal and cooperative Appearance: grossly normal Debridement Note Debridement Note Wound debrided: #3 - Left posterolateral leg ulcer Laterality: Left Wound Grade/Stage: Grade III Type of Debridement: Excisional debridement Anesthesia Used: 5% Lidocaine Gel and Cetacaine Depth: Down to and including healthy tissue Percentage of wound debrided: 100 Instrument Used: 5mm curette and Forceps Tissue Removed: subcutaneous tissue, senescent cells Severity: Limited To Skin Breakdown Amount of bleeding with debridement: None Bleeding Controlled with: Pressure Patient tolerated procedure: Patient tolerated procedure well Post-Debridement Measurements and Additional Note: Post-Debridement Measurements/Treatment - Nurse 1 - General Ulcer Assessment Start: 10/28/23 10:14 Freq: Status: Active Protocol: LAWRENCE Activity Type Activity Date Activity User E-sign Co-sign Detail Recorded Client Recorded Date Recorded By Document 10/28/23 10:16 AL [email or web address] 10/28/23 10:25 AL 10/28/23 10:16 MIKE - Today's Visit Information Type of service Follow-up Visit (Physician/DIRECTOR TRANSLATION ) Arrival Mode Ambulatory Accompanied by self Patient Identification Verified (Name & Yes ) Safety Precautions Fall Prevention Height and Weight Body Mass Index (BMI) 27.6 BMI Classification Overweight Vital Signs Temperature (97.8 F-99.1 F) 98 F Temperature Source Temporal Pulse Rate (60-100) 86 Pulse Location Monitor Respiratory Rate (12-18) 18 Respiratory rate source Observation Oxygen Delivery Method Room Air Blood Pressure (90/60-120/80) 145/89 H Blood Pressure Mean (mm Hg) 107 Source Monitor Position Sitting Blood Pressure Location Left Arm History Since Last Visit- (Skip if this is Patient's initial visit) Has dressing in place as prescribed Yes Has compression in place as prescribed N/A Has offloadiing in place as prescribed N/A Experienced any changes in pain level or Yes management Left Footwear Regular Shoe Right Footwear Regular Shoe Pain Scale: 0-10 Numeric Is Patient Pain Free? Yes - Nurse 1 - General Ulcer Measurement Start: 10/28/23 10:14 Freq: Status: Active Protocol: Activity Type Activity Date Activity User E-sign Co-sign Detail Recorded Client Recorded Date Recorded By Document 10/28/23 10:16 AL [email or web address] 10/28/23 10:25 AL 10/28/23 10:16 Wound Center Nurse 1 #3 L Calf -Current Size (cm) - Length 7.5 -Current Size (cm) - Width 2.0 -Current Size (cm) - Depth 0.1 -Total Square Cm 15.00 -Photo Taken No -Tunneling No -Undermining/Tunneling No -Exudate Amt Large -Exudate Type Serosanguineous -Wound Margin Flat & Intact -Granulation Amt Large (67-100%) -Granulation Quality Pale,[place] -Necrosis Amt Small (1-33%) -Necrotic Tissue Type Adherent Slough -Texture (Karen-wound Skin Appearance) Assessed -Moisture (Karen-wound Skin Appearance) Assessed -Color (Karen-wound Skin Appearance) Assessed -Temperature (Karen-wound Skin No Abnormality Appearance) (Pt Warm) -Tenderness on Palpation (Karen-wound No Skin Appearance) -Ulcer Cleansing Soap and Water -Foul Odor after Cleansing No -Anesthetic Used 5% Lidocaine Gel Lower Limb Edema Present Yes Left Calf (cm) 39 Left Ankle (cm) 22 WC - Nurse 2 - General Ulcer CM Notes Start: 10/28/23 10:14 Freq: Status: Active Protocol: Activity Type Activity Date Activity User E-sign Co-sign Detail Recorded Client Recorded Date Recorded By Document 10/28/23 10:28 [facility] [id number] 10/28/23 10:45 [facility] 10/28/23 10:28 Wound Center Nurse 2 #3 L Calf -Time 10:29 -Correct Patient Yes -Correct Side, Site, Position Yes -Correct Procedure Yes -Procedure Performed Yes -Type of Procedure Debridement -Clinical Debridement Subcutaneous -Tissue Removed Subcutaneous -Post Debridement (cm) - Length 6.5 -Post Debridement (cm) - Width 2.5 -Post Debridement (cm) - Depth 0.1 -Total Square (Post) (cm) 16.25 -Area of Debridement (cm) - Length 6.5 -Area of Debridement (cm) - Width 2.5 -Total Square (Area) (cm) 16.25 -Tunneling No -Undermining/Tunneling No -Circular Undermining No -Wound/Ulcer Outcome Not Healed -Ulcer Cleansing Rinsed/ Irrigated with Saline -Foul Odor after Cleansing No -Bioengineered Tissue Yes -Type of Bioengineered Tissue Theraskin -Expiration Date 06/23/28 -Product Lot Number [id number] -Percent Used 100 -Lot number of Saline Used [id number] -Bleeding Controlled with Pressure -Treatment Response Procedure Tolerated Well -Debridement - Subq, 1st 20sq cm No -Apply Skin Sub - 1st 25 sq cm - Legs 1 -Theraskin - 101TSS (13 SQ CM) (per sq 13 cm) Pain Scale: 0-10 Numeric Is Patient Pain Free? Yes - Nurse 3 - General Ulcer D/C NN Start: 10/28/23 10:14 Freq: Status: Active Protocol: Activity Type Activity Date Activity User E-sign Co-sign Detail Recorded Client Recorded Date Recorded By Document 10/28/23 10:59 AL [email or web address] 10/28/23 11:01 AL 10/28/23 10:59 Wound Care Center Nurse 3 #3 L Calf -Primary Dressing Applied Aquacel Extra -Primary Dressing Covered/Secured with Dry Gauze & Roll Gauze, Secured with Tape -Aquacel Extra 1 Left -Other pt in own tubigrip size F double Pain Scale: 0-10 Numeric Is Patient Pain Free? 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 100% of the product was used. Theraskin was secured with Dermabond. Skin prep used surrounding the ulcer. Wound veil covered the Theraskin and secured with Steri-strips. On the two areas that were not covered by the Theraskin, will place Aqucel extra and change them at the time she changes the outer dressings. Cover with ABD and kerlix. Instructed her to change the outer dressing every other day as needed. She is not to get this area wet. If she showers, she is to use a shower boot/cast cover. Compression - Double tubigrip. Stressed importance of keeping legs elevated when sitting to help prevent edema. Follow-up next week with her regular provider
[2023-11-02 14:02] VITALS: BP 144/76; PULSE 94; RESP 18; TEMP 36.6; BMI 27.6
--- NOTE | 2023-11-02 14:48 | PCM.WC.PN ---
History of Present Illness Date of Service: 11/02/23 Chief Complaint: Left lateral leg ulcer that was initially caused by trauma from bumping leg on edge of car. History of Wound: Patient is 83 year female who presents for further evaluation of an ulcer on her left posterolateral leg. She initially bumped her leg on her car frame when removing something from her car on 05/22/24 and needed sutures to her left anterior leg. She then developed increased pain, swelling and a hematoma to her left leg and was seen in the ED very early on 05/27/23. She is on chronic anticoagulation for Afib, her INR was 5.3 at that time. She was discharged home with follow up with her PCP later that day. She returned to the ED via squad later that day after she experienced a large amount of bleeding. The hematoma was evacuated in the ED under sedation. She was admitted to the hospital and she required transfusion of 1 unit PRBC when her hemoglobin dropped from 11 to 6.9. She was transferred to [facility] for a little while. She comes in today for further evaluation of her left posterolateral leg ulcer from a hematoma. She states she is doing well at home. Her daughter is helping her with her dressing changes. Wound care - Fibracol. 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 Wound cultures obtained 07/27/23 which were positive for Pseudomonas aeruginosa, MRSA, Corynebacterium striatum, and Anaerobic cocci. She was placed on Flagyl and finished them. She was placed on Levaquin and is tolerating them thus far. She was placed on Linezolid and stated she had some visual problems and stopped the antibiotic. Stopped the Clindamycin due severe heart burn. Re-cultured the ulcer on 08/25/23 and it was positive for Acinetobacter baumannii. Started her on Augmentin, which she has tolerated in the past. Today she denies fever, chills, nausea or vomiting. Her appetite is good. Patient was interested in advanced skin substitute grafts to help the ulcer to heal. She has been approved for Thera-Skin. Progress of Wound: The wound is smaller in size. Theraskin #7 was placed last week. There is still TheraSkin is still visible but impregnated into the wound base. I was able to remove the majority of it. Objective Data Objective Data Vital Signs: Vital Signs Temp Pulse Resp BP O2 Del Method 97.8 F 94 18 144/76 H Room Air 11/02/23 14:02 11/02/23 14:02 11/02/23 14:02 11/02/23 14:02 10/28/23 10:16 Oxygen Delivery Method Room Air Weight: 170 lb 12.573 oz Body Mass Index (BMI) 27.6 Charges/Coding Procedures Integumentary 150xxx-152xx: 81801 Skin sub graft trnk/arm/leg Debridement Note Debridement Note Wound debrided: #3 - Left posterolateral leg ulcer Laterality: Left Wound Grade/Stage: Grade III Type of Debridement: Excisional debridement Anesthesia Used: 5% Lidocaine Gel Depth: Down to and including healthy tissue and in the subcutaneous layer Percentage of wound debrided: 100 Instrument Used: 5mm curette Tissue Removed: subcutaneous tissue, senescent cells Severity: Fat Layer Exposed Amount of bleeding with debridement: Mild Bleeding Controlled with: Pressure and Compression and gauze Patient tolerated procedure: Patient tolerated procedure well Post-Debridement Measurements and Additional Note: Post-Debridement Measurements/Treatment - Nurse 1 - General Ulcer Assessment Start: 10/28/23 10:14 Freq: Status: Active Protocol: LAWRENCE Activity Type Activity Date Activity User E-sign Co-sign Detail Recorded Client Recorded Date Recorded By Document 10/28/23 10:16 MT [email or web address] 10/28/23 10:25 MT Document 11/02/23 14:02 DL [email or web address] 11/02/23 14:08 DL 10/28/23 11/02/23 10:16 14:02 - Today's Visit Information Type of service Follow-up Visit Follow-up Visit (Physician/ASSISTANT COMMISSIONER (Physician/ASSISTANT COMMISSIONER ) ) Arrival Mode Ambulatory Ambulatory Transfer Assistance None Accompanied by self Patient Identification Verified (Name & Yes Yes ) Patient Requires Transmission-Based No Precautions Safety Precautions Fall Prevention Height and Weight Body Mass Index (BMI) 27.6 27.6 BMI Classification Overweight Overweight Vital Signs Temperature (97.8 F-99.1 F) 98 F 97.8 F Temperature Source Temporal Temporal Pulse Rate (60-100) 86 94 Pulse Location Monitor Monitor Respiratory Rate (12-18) 18 18 Respiratory rate source Observation Observation Oxygen Delivery Method Room Air Blood Pressure (90/60-120/80) 145/89 H 144/76 H Blood Pressure Mean (mm Hg) 107 98 Source Monitor Monitor Position Sitting Blood Pressure Location Left Arm History Since Last Visit- (Skip if this is Patient's initial visit) Have you changed medications since your No last visit? Any new allergies or adverse reactions No Had a fall/change in ADL's that may No increase risk of falls Signs or symptoms of abuse and/or No neglect since last visit Have you been in the hospital since your No last visit? Has dressing in place as prescribed Yes Yes Has compression in place as prescribed N/A Yes Has offloadiing in place as prescribed N/A N/A Experienced any changes in pain level or Yes No management Left Footwear Regular Shoe Right Footwear Regular Shoe Pain Scale: 0-10 Numeric Is Patient Pain Free? Yes Yes WC - Nurse 1 - General Ulcer Measurement Start: 10/28/23 10:14 Freq: Status: Active Protocol: Activity Type Activity Date Activity User E-sign Co-sign Detail Recorded Client Recorded Date Recorded By Document 10/28/23 10:16 MA [email or web address] 10/28/23 10:25 MT Document 11/02/23 14:02 DL ..25.7 11/02/23 14:08 DL 10/28/23 11/02/23 10:16 14:02 Wound Center Nurse 1 #3 L Calf -Current Size (cm) - Length 7.5 7.3 -Current Size (cm) - Width 2.0 2 -Current Size (cm) - Depth 0.1 0.1 -Total Square Cm 15.00 14.6 -Photo Taken No Yes -Tunneling No -Undermining/Tunneling No -Exudate Amt Large Medium -Exudate Type Serosanguineous Serosanguineous -Wound Margin Flat & Intact Distinct, Outline Attached -Granulation Amt Large (67-100%) Large (67-100%) -Granulation Quality Pale,[place] Hyper- granulation -Necrosis Amt Small (1-33%) Small (1-33%) -Necrotic Tissue Type Adherent Slough Adherent Slough -Structure Exposed N/A -Texture (Karen-wound Skin Appearance) Assessed Scarring -Moisture (Karen-wound Skin Appearance) Assessed No Abnormality, Maceration -Color (Karen-wound Skin Appearance) Assessed Hemosiderin Staining -Temperature (Karen-wound Skin No Abnormality No Abnormality Appearance) (Pt Warm) (Pt Warm) -Tenderness on Palpation (Karen-wound No No Skin Appearance) -Ulcer Cleansing Soap and Water Not Cleansed -Foul Odor after Cleansing No No -Anesthetic Used 5% Lidocaine 5% Lidocaine Gel Gel Lower Limb Edema Present Yes Left Calf (cm) 39 39.2 Left Ankle (cm) 22 21 WC - Nurse 2 - General Ulcer CM Notes Start: 10/28/23 10:14 Freq: Status: Active Protocol: Activity Type Activity Date Activity User E-sign Co-sign Detail Recorded Client Recorded Date Recorded By Document 10/28/23 10:28 [facility] [id number] 10/28/23 10:45 [facility] Document 11/02/23 14:21 [facility] [id number] 11/02/23 14:35 [facility] 10/28/23 11/02/23 10:28 14:21 Wound Center Nurse 2 #3 L Calf -Time 10:29 14:21 -Correct Patient Yes Yes -Correct Side, Site, Position Yes Yes -Correct Procedure Yes Yes -Procedure Performed Yes Yes -Type of Procedure Debridement Debridement -Clinical Debridement Subcutaneous Subcutaneous -Tissue Removed Subcutaneous Subcutaneous -Post Debridement (cm) - Length 6.5 7 -Post Debridement (cm) - Width 2.5 2 -Post Debridement (cm) - Depth 0.1 0.1 -Total Square (Post) (cm) 16.25 14 -Area of Debridement (cm) - Length 6.5 7 -Area of Debridement (cm) - Width 2.5 2 -Total Square (Area) (cm) 16.25 14 -Tunneling No No -Undermining/Tunneling No No -Circular Undermining No No -Wound/Ulcer Outcome Not Healed Not Healed -Ulcer Cleansing Rinsed/ Rinsed/ Irrigated with Irrigated with Saline Saline -Foul Odor after Cleansing No No -Bioengineered Tissue Yes Yes -Type of Bioengineered Tissue Theraskin Theraskin -Expiration Date 06/23/28 06/17/28 -Product Lot Number [id number] -Percent Used 100 100 -Lot number of Saline Used [id number] -Bleeding Controlled with Pressure Pressure -Treatment Response Procedure Procedure Tolerated Well Tolerated Well -Debridement - Subq, 1st 20sq cm No No -Apply Skin Sub - 1st 25 sq cm - Legs 1 1 -Theraskin - 101TSS (13 SQ CM) (per sq 13 13 cm) Pain Scale: 0-10 Numeric Is Patient Pain Free? Yes Yes - Nurse 3 - General Ulcer D/C NN Start: 10/28/23 10:14 Freq: Status: Active Protocol: Activity Type Activity Date Activity User E-sign Co-sign Detail Recorded Client Recorded Date Recorded By Document 10/28/23 10:59 MA [email or web address] 10/28/23 11:01 MA Document 11/02/23 14:45 DL [email or web address] 11/02/23 14:47 DL 10/28/23 11/02/23 10:59 14:45 Wound Care Center Nurse 3 #3 L Calf -Foul Odor after Cleansing No -Primary Dressing Applied Aquacel Extra -Other Dressing Theraskin -Primary Dressing Covered/Secured with Dry Gauze & Dry Gauze & Roll Gauze, Roll Gauze Secured with Tape -Other Covering ABD -Aquacel Extra 1 -Wound Comment(s) dressing applied per Marleen Abreu today Left -Tubular Bandage Double Layer -Size of Tubigrip Used Size F -Size F ($) 2 -Other pt in own tubigrip size F double Treatment Response Procedure Tolerated Well Pain Scale: 0-10 Numeric Is Patient Pain Free? 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 100% of the product was used. Theraskin was secured with Dermabond. Skin prep used surrounding the ulcer. Adaptic touch covered the Theraskin and secured with Steri-strips. Cover with ABD and kerlix. Instructed her to change the outer dressing as needed. She is not to get this area wet. If she showers, she is to use a shower boot/cast cover. Compression - Double tubigrip. Stressed importance of keeping legs elevated when sitting to help prevent edema. Follow-up next week.
[2023-11-09 09:53] VITALS: BP 143/88; PULSE 91; RESP 20; TEMP 36.3; BMI 27.6
--- NOTE | 2023-11-09 14:01 | PCM.WC.PN ---
History of Present Illness Date of Service: 11/09/23 Chief Complaint: Left lateral leg ulcer that was initially caused by trauma from bumping leg on edge of car. History of Wound: Patient is 83 year female who presents for further evaluation of an ulcer on her left posterolateral leg. She initially bumped her leg on her car frame when removing something from her car on 05/22/24 and needed sutures to her left anterior leg. She then developed increased pain, swelling and a hematoma to her left leg and was seen in the ED very early on 05/27/23. She is on chronic anticoagulation for Afib, her INR was 5.3 at that time. She was discharged home with follow up with her PCP later that day. She returned to the ED via squad later that day after she experienced a large amount of bleeding. The hematoma was evacuated in the ED under sedation. She was admitted to the hospital and she required transfusion of 1 unit PRBC when her hemoglobin dropped from 11 to 6.9. She was transferred to [facility] for a little while. She comes in today for further evaluation of her left posterolateral leg ulcer from a hematoma. She states she is doing well at home. Her daughter is helping her with her dressing changes. Wound care - Fibracol. 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 Wound cultures obtained 07/27/23 which were positive for Pseudomonas aeruginosa, MRSA, Corynebacterium striatum, and Anaerobic cocci. She was placed on Flagyl and finished them. She was placed on Levaquin and is tolerating them thus far. She was placed on Linezolid and stated she had some visual problems and stopped the antibiotic. Stopped the Clindamycin due severe heart burn. Re-cultured the ulcer on 08/25/23 and it was positive for Acinetobacter baumannii. Started her on Augmentin, which she has tolerated in the past. Today she denies fever, chills, nausea or vomiting. Her appetite is good. Patient was interested in advanced skin substitute grafts to help the ulcer to heal. She has been approved for Thera-Skin. Progress of Wound: The ulcer is smaller in size. Theraskin #8 was placed last week. The ulcer is beefy pink with granulation tissue present. Objective Data Objective Data Vital Signs: Vital Signs Temp Pulse Resp BP O2 Del Method 97.3 F L 91 20 H 143/88 H Room Air 11/09/23 09:53 11/09/23 09:53 11/09/23 09:53 11/09/23 09:53 10/28/23 10:16 Oxygen Delivery Method Room Air Weight: 170 lb 12.573 oz Body Mass Index (BMI) 27.6 Charges/Coding Procedures Integumentary 150xxx-152xx: [id number] Skin sub graft trnk/arm/leg Debridement Note Debridement Note Wound debrided: #3 - Left posterolateral leg ulcer Laterality: Left Wound Grade/Stage: Grade III Type of Debridement: Excisional debridement Anesthesia Used: 5% Lidocaine Gel Depth: Down to and including healthy tissue and in the subcutaneous layer Percentage of wound debrided: 100 Instrument Used: 5mm curette Tissue Removed: subcutaneous tissue, senescent cells Severity: Fat Layer Exposed Amount of bleeding with debridement: Mild Bleeding Controlled with: Pressure and Compression and gauze Patient tolerated procedure: Patient tolerated procedure well Post-Debridement Measurements and Additional Note: Post-Debridement Measurements/Treatment - Nurse 1 - General Ulcer Assessment Start: 10/28/23 10:14 Freq: Status: Active Protocol: [place] Activity Type Activity Date Activity User E-sign Co-sign Detail Recorded Client Recorded Date Recorded By Document 10/28/23 10:16 [facility] [email or web address] 10/28/23 10:25 MT Document 11/02/23 14:02 DL 10.10.25.7 11/02/23 14:08 DL Document 11/09/23 09:53 DL 10.10.25.7 11/09/23 10:02 DL 10/28/23 11/02/23 11/09/23 10:16 14:02 09:53 - Today's Visit Information Type of service Follow-up Visit Follow-up Visit Follow-up Visit (Physician/MAT MACHINE OPERATOR (Physician/MAT MACHINE OPERATOR (Physician/MAT MACHINE OPERATOR ) ) ) Arrival Mode Ambulatory Ambulatory Ambulatory,Cane Transfer Assistance None None Accompanied by self Patient Identification Verified (Name & Yes Yes Yes ) Patient Requires Transmission-Based No Precautions Safety Precautions Fall Prevention NA Height and Weight Body Mass Index (BMI) 27.6 27.6 27.6 BMI Classification Overweight Overweight Overweight Vital Signs Temperature (97.8 F-99.1 F) 98 F 97.8 F 97.3 F L Temperature Source Temporal Temporal Temporal Pulse Rate (60-100) 86 94 91 Pulse Location Monitor Monitor Monitor Respiratory Rate (12-18) 18 18 20 H Respiratory rate source Observation Observation Observation Oxygen Delivery Method Room Air Blood Pressure (90/60-120/80) 145/89 H 144/76 H 143/88 H Blood Pressure Mean (mm Hg) 107 98 106 Source Monitor Monitor Monitor Position Sitting Blood Pressure Location Left Arm History Since Last Visit- (Skip if this is Patient's initial visit) Have you changed medications since your No No last visit? Any new allergies or adverse reactions No No Had a fall/change in ADL's that may No No increase risk of falls Signs or symptoms of abuse and/or No No neglect since last visit Have you been in the hospital since your No No last visit? Has dressing in place as prescribed Yes Yes Yes Has compression in place as prescribed N/A Yes Yes Has offloadiing in place as prescribed N/A N/A N/A Experienced any changes in pain level or Yes No No management Left Footwear Regular Shoe Right Footwear Regular Shoe Pain Scale: 0-10 Numeric Is Patient Pain Free? Yes Yes Yes WC - Nurse 1 - General Ulcer Measurement Start: 10/28/23 10:14 Freq: Status: Active Protocol: Activity Type Activity Date Activity User E-sign Co-sign Detail Recorded Client Recorded Date Recorded By Document 10/28/23 10:16 MT [email or web address] 10/28/23 10:25 MT Document 11/02/23 14:02 DL 10.10.25.7 11/02/23 14:08 DL Document 11/09/23 09:53 DL 10.10.25.7 11/09/23 10:02 DL 10/28/23 11/02/23 11/09/23 10:16 14:02 09:53 Wound Center Nurse 1 #3 L Calf -Current Size (cm) - Length 7.5 7.3 5.8 -Current Size (cm) - Width 2.0 2 1.3 -Current Size (cm) - Depth 0.1 0.1 0.1 -Total Square Cm 15.00 14.6 7.54 -Photo Taken No Yes -Tunneling No -Undermining/Tunneling No -Exudate Amt Large Medium Medium -Exudate Type Serosanguineous Serosanguineous Serosanguineous -Wound Margin Flat & Intact Distinct, Distinct, Outline Outline Attached Attached -Granulation Amt Large (67-100%) Large (67-100%) Medium (34-66%) -Granulation Quality Pale,[place] Hyper- Red granulation -Necrosis Amt Small (1-33%) Small (1-33%) Medium (34-66%) -Necrotic Tissue Type Adherent Slough Adherent Slough Adherent Slough -Structure Exposed N/A N/A -Texture (Karen-wound Skin Appearance) Assessed Scarring Scarring,Rash -Moisture (Karen-wound Skin Appearance) Assessed No Abnormality, Dry/Scaly Maceration -Color (Karen-wound Skin Appearance) Assessed Hemosiderin No Abnormality Staining -Temperature (Karen-wound Skin No Abnormality No Abnormality No Abnormality Appearance) (Pt Warm) (Pt Warm) (Pt Warm) -Tenderness on Palpation (Karen-wound No No Skin Appearance) -Ulcer Cleansing Soap and Water Not Cleansed Soap and Water -Foul Odor after Cleansing No No No -Anesthetic Used 5% Lidocaine 5% Lidocaine 4% Lidocaine Gel Gel Solution Lower Limb Edema Present Yes Left Calf (cm) 39 39.2 39 Left Ankle (cm) 22 21 20.8 WC - Nurse 2 - General Ulcer CM Notes Start: 10/28/23 10:14 Freq: Status: Active Protocol: Activity Type Activity Date Activity User E-sign Co-sign Detail Recorded Client Recorded Date Recorded By Document 10/28/23 10:28 [facility] [id number] 10/28/23 10:45 [facility] Document 11/02/23 14:21 [facility] [id number] 11/02/23 14:35 [facility] Document 11/09/23 10:18 [id number] 11/09/23 10:31 10/28/23 11/02/23 11/09/23 10:28 14:21 10:18 Wound Center Nurse 2 #3 L Calf -Time 10:29 14:21 10:18 -Correct Patient Yes Yes Yes -Correct Side, Site, Position Yes Yes Yes -Correct Procedure Yes Yes Yes -Procedure Performed Yes Yes Yes -Type of Procedure Debridement Debridement Debridement -Clinical Debridement Subcutaneous Subcutaneous Subcutaneous -Tissue Removed Subcutaneous Subcutaneous Subcutaneous -Post Debridement (cm) - Length 6.5 7 6.2 -Post Debridement (cm) - Width 2.5 2 1.7 -Post Debridement (cm) - Depth 0.1 0.1 0.1 -Total Square (Post) (cm) 16.25 14 10.54 -Area of Debridement (cm) - Length 6.5 7 6.2 -Area of Debridement (cm) - Width 2.5 2 1.7 -Total Square (Area) (cm) 16.25 14 10.54 -Tunneling No No No -Undermining/Tunneling No No No -Circular Undermining No No No -Wound/Ulcer Outcome Not Healed Not Healed Not Healed -Ulcer Cleansing Rinsed/ Rinsed/ Rinsed/ Irrigated with Irrigated with Irrigated with Saline Saline Saline -Foul Odor after Cleansing No No No -Bioengineered Tissue Yes Yes Yes -Type of Bioengineered Tissue Theraskin Theraskin Theraskin -Expiration Date 06/23/28 06/17/28 12/01/27 -Product Lot Number [id number] -Percent Used 100 100 100 -Lot number of Saline Used [id number] -Bleeding Controlled with Pressure Pressure Pressure -Treatment Response Procedure Procedure Procedure Tolerated Well Tolerated Well Tolerated Well -Offloading No -Debridement - Subq, 1st 20sq cm No No No -Apply Skin Sub - 1st 25 sq cm - Legs 1 1 1 -Theraskin - 100TSXS (6 SQ CM) (per sq 12 cm) -Theraskin - 101TSS (13 SQ CM) (per sq 13 13 cm) -Wound Comment(s) second theraskin applied: exp: 12/01/2027 ID [id number] 100% used saline used lot # [id number] exp. 08/22/26 Pain Scale: 0-10 Numeric Is Patient Pain Free? Yes Yes Yes WC - Nurse 3 - General Ulcer D/C NN Start: 10/28/23 10:14 Freq: Status: Active Protocol: Activity Type Activity Date Activity User E-sign Co-sign Detail Recorded Client Recorded Date Recorded By Document 10/28/23 10:59 MT [email or web address] 10/28/23 11:01 MT Document 11/02/23 14:45 DL 10..25.7 11/02/23 14:47 DL Document 11/09/23 10:42 KW l 11/09/23 10:47 KW 10/28/23 11/02/23 11/09/23 10:59 14:45 10:42 Wound Care Center Nurse 3 #3 L Calf -Foul Odor after Cleansing No -Primary Dressing Applied Aquacel Extra -Other Dressing Theraskin -Primary Dressing Covered/Secured with Dry Gauze & Dry Gauze & Dry Gauze & Roll Gauze, Roll Gauze Roll Gauze, Secured with Secured with Tape Tape -Other Covering ABD -Aquacel Extra 1 -Wound Comment(s) dressing applied per Marleen Abreu today Left -Tubular Bandage Double Layer Double Layer -Size of Tubigrip Used Size F Size E -Size E ($) 2 -Size F ($) 2 -Other pt in own tubigrip size F double Treatment Response Procedure Tolerated Well Pain Scale: 0-10 Numeric Is Patient Pain Free? 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: CODE(S): L97.902 - Non-pressure chronic ulcer of unspecified part of unspecified lower leg with fat layer exposed QUALIFIERS: Laterality: left Qualified Code(s): L97.922 - Non-pressure chronic ulcer of unspecified part of left lower leg with fat layer exposed (2) Contusion of left lower leg, sequela: CODE(S): S80.12XS - Contusion of left lower leg, sequela (3) Hematoma: CODE(S): T14.8XXA - Other injury of unspecified body region, initial encounter (4) Chronic anticoagulation: CODE(S): 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 100% of the product was used. Theraskin was secured with Dermabond. Skin prep used surrounding the ulcer. Wound veil covered the Theraskin and secured with Steri-strips. Cover with ABD and kerlix. Instructed her to change the outer dressing as needed. She is not to get this area wet. If she showers, she is to use a shower boot/cast cover. Compression - Double tubigrip. Stressed importance of keeping legs elevated when sitting to help prevent edema. Follow-up next week.
[2023-11-16 09:55] VITALS: BP 148/74; PULSE 90; RESP 18; TEMP 36.8; BMI 27.6
--- NOTE | 2023-11-16 10:34 | PN.PCM_ITS ---
History of Present Illness Date of Service: 11/16/23 Chief Complaint: Left lateral leg ulcer that was initially caused by trauma from bumping leg on edge of car. History of Wound: Patient is 83 year female who presents for further evaluation of an ulcer on her left posterolateral leg. She initially bumped her leg on her car frame when removing something from her car on 05/22/24 and needed sutures to her left anterior leg. She then developed increased pain, swelling and a hematoma to her left leg and was seen in the ED very early on 05/27/23. She is on chronic anticoagulation for Afib, her INR was 5.3 at that time. She was discharged home with follow up with her PCP later that day. She returned to the ED via squad later that day after she experienced a large amount of bleeding. The hematoma was evacuated in the ED under sedation. She was admitted to the hospital and she required transfusion of 1 unit PRBC when her hemoglobin dropped from 11 to 6.9. She was transferred to [facility] for a little while. 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 She states she is doing well at home. Her daughter is helping her with her dressing changes. Wound care - Fibracol. She has a history of Afib, fpc coagulation, mitral valve regurgitation, cardiac ablation, cardiac pace maker, DVT, HTN, hyperlipidemia, rheumatoid arthritis, cataract removal, and multiple wounds in the past. Wound cultures obtained 07/27/23 which were positive for Pseudomonas aeruginosa, MRSA, Corynebacterium striatum, and Anaerobic cocci. She was placed on Flagyl and finished them. She was placed on Levaquin and is tolerating them thus far. She was placed on Linezolid and stated she had some visual problems and stopped the antibiotic. Stopped the Clindamycin due severe heart burn. Re-cultured the ulcer on 08/25/23 and it was positive for Acinetobacter baumannii. Started her on Augmentin, which she has tolerated in the past. Today she denies fever, chills, nausea or vomiting. Her appetite is good. Patient was interested in advanced skin substitute grafts to help the ulcer to heal. She has been approved for Thera-Skin. Progress of Wound: The ulcer is smaller in size. Theraskin #9 was placed last week. The ulcer is beefy pink with granulation tissue present. There is a small skin tear on the proximal portion of the ulcer where the theraskin stuck when removing it. The skin tear is superficial and a healthy pink color. Objective Data Objective Data Vital Signs: Vital Signs Temp Pulse Resp BP O2 Del Method 98.2 F 90 18 148/74 H Room Air 11/16/23 09:55 11/16/23 09:55 11/16/23 09:55 11/16/23 09:55 11/16/23 09:55 Oxygen Delivery Method Room Air Weight: 170 lb 12.573 oz Body Mass Index (BMI) 27.6 Charges/Coding Procedures Integumentary 150xxx-152xx: [id number] Skin sub graft trnk/arm/leg Debridement Note Debridement Note Wound debrided: #3 - Left posterolateral leg ulcer Laterality: Left Wound Grade/Stage: Grade III Type of Debridement: Excisional debridement Anesthesia Used: 5% Lidocaine Gel Depth: Down to and including healthy tissue and in the subcutaneous layer Percentage of wound debrided: 100 Instrument Used: 5mm curette Tissue Removed: subcutaneous tissue, senescent cells Severity: Fat Layer Exposed Amount of bleeding with debridement: Mild Bleeding Controlled with: Pressure and Compression and gauze Patient tolerated procedure: Patient tolerated procedure well Post-Debridement Measurements and Additional Note: Post-Debridement Measurements/Treatment - Nurse 1 - General Ulcer Assessment Start: 10/28/23 10:14 Freq: Status: Active Protocol: [place] Activity Type Activity Date Activity User E-sign Co-sign Detail Recorded Client Recorded Date Recorded By Document 10/28/23 10:16 MA [email or web address] 10/28/23 10:25 MA Document 11/02/23 14:02 DL [email or web address] 11/02/23 14:08 DL Document 11/09/23 09:53 DL [email or web address] 11/09/23 10:02 DL Document 11/16/23 09:55 [facility] 11/16/23 09:57 [facility] 10/28/23 11/02/23 11/09/23 10:16 14:02 09:53 - Today's Visit Information Type of service Follow-up Visit Follow-up Visit Follow-up Visit (Physician/VAMP PRESSER (Physician/VAMP PRESSER (Physician/VAMP PRESSER ) ) ) Arrival Mode Ambulatory Ambulatory Ambulatory,Cane Transfer Assistance None None Accompanied by self Patient Identification Verified (Name & Yes Yes Yes ) Patient Requires Transmission-Based No Precautions Safety Precautions Fall Prevention NA Height and Weight Body Mass Index (BMI) 27.6 27.6 27.6 BMI Classification Overweight Overweight Overweight Vital Signs Temperature (97.8 F-99.1 F) 98 F 97.8 F 97.3 F L Temperature Source Temporal Temporal Temporal Pulse Rate (60-100) 86 94 91 Pulse Location Monitor Monitor Monitor Respiratory Rate (12-18) 18 18 20 H Respiratory rate source Observation Observation Observation Oxygen Delivery Method Room Air Blood Pressure (90/60-120/80) 145/89 H 144/76 H 143/88 H Blood Pressure Mean (mm Hg) 107 98 106 Source Monitor Monitor Monitor Position Sitting Blood Pressure Location Left Arm History Since Last Visit- (Skip if this is Patient's initial visit) Have you changed medications since your No No last visit? Any new allergies or adverse reactions No No Had a fall/change in ADL's that may No No increase risk of falls Signs or symptoms of abuse and/or No No neglect since last visit Have you been in the hospital since your No No last visit? Has dressing in place as prescribed Yes Yes Yes Has compression in place as prescribed N/A Yes Yes Has offloadiing in place as prescribed N/A N/A N/A Experienced any changes in pain level or Yes No No management Left Footwear Regular Shoe Right Footwear Regular Shoe Pain Scale: 0-10 Numeric Is Patient Pain Free? Yes Yes Yes 11/16/23 09:55 WC - Today's Visit Information Type of service Follow-up Visit (Physician/VAMP PRESSER ) Arrival Mode Ambulatory Transfer Assistance Accompanied by Patient Identification Verified (Name & Yes ) Patient Requires Transmission-Based Precautions Safety Precautions Height and Weight Body Mass Index (BMI) 27.6 BMI Classification Overweight Vital Signs Temperature (97.8 F-99.1 F) 98.2 F Temperature Source Temporal Pulse Rate (60-100) 90 Pulse Location Monitor Respiratory Rate (12-18) 18 Respiratory rate source Observation Oxygen Delivery Method Room Air Blood Pressure (90/60-120/80) 148/74 H Blood Pressure Mean (mm Hg) 98 Source Monitor Position Semi-Fowlers Blood Pressure Location Left Arm History Since Last Visit- (Skip if this is Patient's initial visit) Have you changed medications since your No last visit? Any new allergies or adverse reactions No Had a fall/change in ADL's that may No increase risk of falls Signs or symptoms of abuse and/or No neglect since last visit Have you been in the hospital since your No last visit? Has dressing in place as prescribed Yes Has compression in place as prescribed Yes Has offloadiing in place as prescribed N/A Experienced any changes in pain level or No management Left Footwear Regular Shoe Right Footwear Regular Shoe Pain Scale: 0-10 Numeric Is Patient Pain Free? Yes WC - Nurse 1 - General Ulcer Measurement Start: 10/28/23 10:14 Freq: Status: Active Protocol: Activity Type Activity Date Activity User E-sign Co-sign Detail Recorded Client Recorded Date Recorded By Document 10/28/23 10:16 MT [email or web address] 10/28/23 10:25 MT Document 11/02/23 14:02 DL [email or web address] 11/02/23 14:08 DL Document 11/09/23 09:53 DL [email or web address] 11/09/23 10:02 DL Document 11/16/23 09:55 [facility] 11/16/23 09:57 BMF 10/28/23 11/02/23 11/09/23 10:16 14:02 09:53 Wound Center Nurse 1 #3 L Calf -Current Size (cm) - Length 7.5 7.3 5.8 -Current Size (cm) - Width 2.0 2 1.3 -Current Size (cm) - Depth 0.1 0.1 0.1 -Total Square Cm 15.00 14.6 7.54 -Date of Last Picture (Recall this field) -Photo Taken No Yes -Tunneling No -Undermining/Tunneling No -Exudate Amt Large Medium Medium -Exudate Type Serosanguineous Serosanguineous Serosanguineous -Wound Margin Flat & Intact Distinct, Distinct, Outline Outline Attached Attached -Granulation Amt Large (67-100%) Large (67-100%) Medium (34-66%) -Granulation Quality Pale,[place] Hyper- Red granulation -Necrosis Amt Small (1-33%) Small (1-33%) Medium (34-66%) -Necrotic Tissue Type Adherent Slough Adherent Slough Adherent Slough -Structure Exposed N/A N/A -Texture (Karen-wound Skin Appearance) Assessed Scarring Scarring,Rash -Moisture (Karen-wound Skin Appearance) Assessed No Abnormality, Dry/Scaly Maceration -Color (Karen-wound Skin Appearance) Assessed Hemosiderin No Abnormality Staining -Temperature (Karen-wound Skin No Abnormality No Abnormality No Abnormality Appearance) (Pt Warm) (Pt Warm) (Pt Warm) -Tenderness on Palpation (Karen-wound No No Skin Appearance) -Ulcer Cleansing Soap and Water Not Cleansed Soap and Water -Foul Odor after Cleansing No No No -Anesthetic Used 5% Lidocaine 5% Lidocaine 4% Lidocaine Gel Gel Solution Lower Limb Edema Present Yes Left Calf (cm) 39 39.2 39 Left Ankle (cm) 22 21 20.8 11/16/23 09:55 Wound Center Nurse 1 #3 L Calf -Current Size (cm) - Length 8.3 -Current Size (cm) - Width 1.8 -Current Size (cm) - Depth 0.1 -Total Square Cm 14.94 -Date of Last Picture (Recall this 11/16/23 field) -Photo Taken -Tunneling -Undermining/Tunneling -Exudate Amt Small -Exudate Type Serosanguineous -Wound Margin Distinct, Outline Attached -Granulation Amt Large (67-100%) -Granulation Quality Red -Necrosis Amt Small (1-33%) -Necrotic Tissue Type Adherent Slough -Structure Exposed -Texture (Karen-wound Skin Appearance) Assessed -Moisture (Karen-wound Skin Appearance) Assessed -Color (Karen-wound Skin Appearance) Assessed -Temperature (Karen-wound Skin No Abnormality Appearance) (Pt Warm) -Tenderness on Palpation (Karen-wound No Skin Appearance) -Ulcer Cleansing Soap and Water -Foul Odor after Cleansing -Anesthetic Used 4% Lidocaine Solution Lower Limb Edema Present Left Calf (cm) 38 Left Ankle (cm) 20.5 WC - Nurse 2 - General Ulcer CM Notes Start: 10/28/23 10:14 Freq: Status: Active Protocol: Activity Type Activity Date Activity User E-sign Co-sign Detail Recorded Client Recorded Date Recorded By Document 10/28/23 10:28 [facility] [id number] 10/28/23 10:45 [facility] Document 11/02/23 14:21 [facility] [id number] 11/02/23 14:35 [facility] Document 11/09/23 10:18 [id number] 11/09/23 10:31 JF Document 11/16/23 10:09 JF 0000 11/16/23 10:19 JF 10/28/23 11/02/23 11/09/23 10:28 14:21 10:18 Wound Center Nurse 2 #3 L Calf -Time 10: 14:21 10:18 -Correct Patient Yes Yes Yes -Correct Side, Site, Position Yes Yes Yes -Correct Procedure Yes Yes Yes -Procedure Performed Yes Yes Yes -Type of Procedure Debridement Debridement Debridement -Clinical Debridement Subcutaneous Subcutaneous Subcutaneous -Tissue Removed Subcutaneous Subcutaneous Subcutaneous -Post Debridement (cm) - Length 6.5 7 6.2 -Post Debridement (cm) - Width 2.5 2 1.7 -Post Debridement (cm) - Depth 0.1 0.1 0.1 -Total Square (Post) (cm) 16.25 14 10.54 -Area of Debridement (cm) - Length 6.5 7 6.2 -Area of Debridement (cm) - Width 2.5 2 1.7 -Total Square (Area) (cm) 16.25 14 10.54 -Tunneling No No No -Undermining/Tunneling No No No -Circular Undermining No No No -Wound/Ulcer Outcome Not Healed Not Healed Not Healed -Ulcer Cleansing Rinsed/ Rinsed/ Rinsed/ Irrigated with Irrigated with Irrigated with Saline Saline Saline -Foul Odor after Cleansing No No No -Bioengineered Tissue Yes Yes Yes -Type of Bioengineered Tissue Theraskin Theraskin Theraskin -Expiration Date 06/23/28 06/17/28 12/01/27 -Product Lot Number [id number] -Percent Used 100 100 100 -Lot number of Saline Used [id number] -Bleeding Controlled with Pressure Pressure Pressure -Treatment Response Procedure Procedure Procedure Tolerated Well Tolerated Well Tolerated Well -Offloading No -Debridement - Subq, 1st 20sq cm No No No -Apply Skin Sub - 1st 25 sq cm - Legs 1 1 1 -Theraskin - 100TSXS (6 SQ CM) (per sq 12 cm) -Theraskin - 101TSS (13 SQ CM) (per sq 13 13 cm) -Wound Comment(s) second theraskin applied: exp: 12/01/2027 ID [id number] 100% used saline used lot # [id number] exp. 08/22/26 Pain Scale: 0-10 Numeric Is Patient Pain Free? Yes Yes Yes 11/16/23 10:09 Wound Center Nurse 2 #3 L Calf -Time 10:11 -Correct Patient Yes -Correct Side, Site, Position Yes -Correct Procedure Yes -Procedure Performed Yes -Type of Procedure Debridement -Clinical Debridement Subcutaneous -Tissue Removed Subcutaneous -Post Debridement (cm) - Length 6.0 -Post Debridement (cm) - Width 1.8 -Post Debridement (cm) - Depth 0.1 -Total Square (Post) (cm) 10.80 -Area of Debridement (cm) - Length 6.0 -Area of Debridement (cm) - Width 1.8 -Total Square (Area) (cm) 10.80 -Tunneling No -Undermining/Tunneling No -Circular Undermining No -Wound/Ulcer Outcome Not Healed -Ulcer Cleansing Rinsed/ Irrigated with Saline -Foul Odor after Cleansing No -Bioengineered Tissue Yes -Type of Bioengineered Tissue Theraskin -Expiration Date 08/02/28 -Product Lot Number [id number] -Percent Used 100 -Lot number of Saline Used [id number] -Bleeding Controlled with Pressure -Treatment Response Procedure Tolerated Well -Offloading No -Debridement - Subq, 1st 20sq cm No -Apply Skin Sub - 1st 25 sq cm - Legs 1 -Theraskin - 100TSXS (6 SQ CM) (per sq cm) -Theraskin - 101TSS (13 SQ CM) (per sq 13 cm) -Wound Comment(s) Pain Scale: 0-10 Numeric Is Patient Pain Free? Yes - Nurse 3 - General Ulcer D/C NN Start: 10/28/23 10:14 Freq: Status: Active Protocol: Activity Type Activity Date Activity User E-sign Co-sign Detail Recorded Client Recorded Date Recorded By Document 10/28/23 10:59 MT [email or web address] 10/28/23 11:01 MT Document 11/02/23 14:45 DL 10.10.25.7 11/02/23 14:47 DL Document 11/09/23 10:42 KW l 11/09/23 10:47 KW 10/28/23 11/02/23 11/09/23 10:59 14:45 10:42 Wound Care Center Nurse 3 #3 L Calf -Foul Odor after Cleansing No -Primary Dressing Applied Aquacel Extra -Other Dressing Theraskin -Primary Dressing Covered/Secured with Dry Gauze & Dry Gauze & Dry Gauze & Roll Gauze, Roll Gauze Roll Gauze, Secured with Secured with Tape Tape -Other Covering ABD -Aquacel Extra 1 -Wound Comment(s) dressing applied per B Brady today Left -Tubular Bandage Double Layer Double Layer -Size of Tubigrip Used Size F Size E -Size E ($) 2 -Size F ($) 2 -Other pt in own tubigrip size F double Treatment Response Procedure Tolerated Well Pain Scale: 0-10 Numeric Is Patient Pain Free? 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 100% of the product was used. Theraskin was secured with Dermabond. Skin prep used surrounding the ulcer. Adaptic was placed over the skin tear. Wound veil covered the Theraskin and adaptic and was secured with Steri-strips. Cover with ABD and kerlix. Instructed her to change the outer dressing as needed. She is not to get this area wet. If she showers, she is to use a shower boot/cast cover. Compression - Double tubigrip. Stressed importance of keeping legs elevated when sitting to help prevent edema. Follow-up 2 weeks. I am out of the office next week.
== END 2023-11-22 23:59 | disposition home or self-care (01) ==
LOC: WC 09:45
PROVIDERS: PCP Family Medicine Geriatric Medicine; Referring Provider Family Medicine Geriatric Medicine; Visit Provider Nurse Practitioner Family
DX: L97.822 Non-pressure chronic ulcer of other part of left lower leg with fat layer exposed (principal); M06.9 Rheumatoid arthritis, unspecified; I48.91 Unspecified atrial fibrillation; S80.12XS Contusion of left lower leg, sequela; Z79.01 Long term (current) use of 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s; W22.8XXS Striking against or struck by other objects, sequela; Z86.718 Personal history of other venous thrombosis and embolism; I10 Essential (primary) hypertension; E78.5 Hyperlipidemia, unspecified
CPT/HCPCS: 15271; Q4121

== ENCOUNTER 2023-11-23 01:11 | Emergency (ER) | payer MEDICARE, OTHER, SELFPAY ==
[2023-11-23 01:11] VITALS: BP 170/99; PULSE 84; RESP 16; TEMP 36.5; O2SAT 92; BMI 27.1
--- NOTE | 2023-11-23 01:56 | EDS_ITS ---
HPI History of Present Illness Chief Complaint: Laceration Informant: patient Narrative Narrative: Patient is an 83-year-old female who is on Eliquis secondary to paroxysmal atrial fibrillation. She states that she was taking a long chair out of her trunk around 1030 this evening when it struck her in the right pool and she sustained a laceration. She states that she was able to get the bleeding under control but that a little while later began to bleed once again. At this time she could not get the bleeding to stop. As she is concerned she may need sutures based on the injury and persistent bleeding she comes in for evaluation. [facility] Medical History (Updated 11/23/23 @ 02:[address] Gregg Singh, DO) History of atrial fibrillation Incarcerated hernia Post-menopausal Chronic pain Rheumatoid arthritis CPAP (continuous positive airway pressure) dependence Sleep apnea Coronary artery disease Hypertension DVT (deep venous thrombosis) Presence of cardiac pacemaker 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 retirement current use of 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 Non-rheumatic mitral regurgitation History of left heart catheterization (LHC) (~1989) History of cardioversion (~03/22/19) Essential hypertension History of CVA (cerebrovascular accident) (~2012) Ulcer of left lower extremity with fat layer exposed Open wound of left lower extremity with complication Chronic anticoagulation Hematoma of left lower extremity Paroxysmal atrial fibrillation Hyperlipidemia Home Medications ?Medication ?Instructions ?Recorded ?Last Taken ?Type ascorbic acid (vitamin C) 1,000 mg 500 mg PO BID SUPPLEMENT 10/28/16 03/20/19 History tablet cholecalciferol (vitamin D3) 50 2,000 unit PO QODAY SUPPLEMENT 11/11/18 03/20/19 History mcg (2,000 unit) capsule L.acidoph, paracasei,B. lactis 10 1 ea PO DAILY GUT HEALTH 03/21/19 03/21/19 History billion cell capsule magnesium oxide 400 mg (241.3 mg 400 mg PO DAILY SUPPLEMENT 03/21/19 03/21/19 History magnesium) tablet methenamine hippurate 1 gram tablet 1 g PO DAILY UTI PREVENTION 06/14/20 Unknown History HYDRO EYE 1 tab PO DAILY EYE HEALTH 06/21/20 Unknown History levothyroxine 25 mcg tablet 12.5 mcg PO QODAY THYROID 12/12/21 Unknown History vitamin B complex 1 cap PO DAILY SUPPLEMENT 06/17/22 Unknown History metoprolol tartrate 25 mg tablet 25 mg PO BID BLOOD PRESSURE #180 10/07/22 Unknown Rx tabs ferrous sulfate 325 mg (65 mg 325 mg PO DAILY #30 tabs 05/30/23 Unknown Rx iron) tablet apixaban 5 mg tablet (Eliquis) 5 mg PO DAILY 08/03/23 Unknown History furosemide 20 mg tablet (Lasix) 20 mg PO DAILY 08/03/23 Unknown History losartan 25 mg tablet 25 mg PO DAILY 08/03/23 Unknown History vitamin A 3,000 mcg (10,000 unit) 10,000 unit PO .COMPLEX SUPPLEMENT 08/03/23 Unknown History capsule Allergy/AdvReac Type Severity Reaction Status Date / Time No Known Allergies Allergy Verified 11/23/23 01:15 Family History Father CAD (coronary artery disease) Heart disease Mother Heart disease Hypertension Asthma Surgical History S/P small bowel resection History of eye surgery (~10/2021) History of cardiac radiofrequency ablation (RFA) (~01/15/17) Social History (Updated 09/08/23 @ 18:[address] Kasia Porter MD) household members: none Smoking Status: Never smoker how long ago did patient quit smoking: Smoked for 2 years as a teen alcohol intake: never substance use type: does not use caffeine: No ROS ROS ED Constitutional Constitutional ED: Denies chills or fever(s) ENT ENT ED: Denies sore throat Cardiovascular Cardiovascular: Denies chest pain, palpitations or racing heartbeat Respiratory/Chest Respiratory/Chest: Denies cough or dyspnea Gastrointestinal Gastrointestinal: Denies abdominal pain, diarrhea, nausea or vomiting Genitourinary Genitourinary ED: Denies dysuria Musculoskeletal Musculoskeletal: Reports other Details: Positive right lower leg pain Integumentary Reports other Details: Positive right lower leg laceration Neurologic Neurologic: Denies headache(s) Hematologic/Lymphatic Hematologic/Lymphatic: Reports easy bleeding and easy bruising EXAM Physical Exam Const Vital Signs: 11/23/23 01:11 11/23/23 02:07 Temperature 97.7 F L 97.4 F L Temperature Source Oral Pulse Rate 84 80 Respiratory Rate 16 18 Blood Pressure 170/99 H 136/80 H Blood Pressure Mean 122 98 Pulse Ox 92 93 Oxygen Delivery Method Room Air Positive well nourished, well developed and obese General Appearance ED: well developed Nutritional Appearance: obese HEENT HEENT Narrative: Normocephalic atraumatic Eyes PERRL and EOMs intact bilaterally General Eye ED: Negative for pale conjunctiva or scleral icterus Neck supple and no JVD Resp normal respiratory effort and clear to auscultation bilaterally Cardio regular rate and regular rhythm Extremity Extremity Narrative: Bilateral lower extremities are neurovascularly intact. Patient has a chronic wound to the anterior aspect of the left lower leg/pool from previous hematoma Patient has a U/V shaped laceration to the anterior distal third of the right pool. The wound is subcutaneous layer deep with minimal ooze of blood. There is no retained foreign body. No ligamentous or tendon injury noted. Wound is 2 cm in length. Neuro oriented x3, CN's II-XII intact bilaterally and no sensory deficits noted Sensorium / Orientation: alert Motor Exam: strength 5/5 throughout Psych mental status grossly normal Skin Skin Narrative: Laceration to the right lower leg as documented above MDM MDM MDM Narrative Medical decision making narrative: Patient presented to the ER hypertensive but does have a past medical history of this and otherwise vitals are stable. She sustained a simple laceration to her right lower leg. There is no surrounding signs of infection/cellulitis or abscess. She does not have changes to suggest ligamentous or tendon damage. Wound is not deep enough or under high mechanism of injury to suggest bony injury as well. Therefore this time I felt no need for imaging or laboratory studies. Patient had the wound sutured as documented below based on her history of Eliquis use and persistent bleeding. Following this she is otherwise safe for discharge. Of note we did update her tetanus status as she is unsure of this. Patient had the right lower leg cleaned with chlorhexidine. It was anesthetized with 5 mL 1% lidocaine with epinephrine in local fashion. The wound was copiously irrigated with normal saline. Then four 4-0 Ethilon sutures were placed in simple interrupted fashion. This brought the wound together well with good approximation. Patient tolerated procedure well without complication. 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 lactis 1 EACH capsule 1 ea PO DAILY vitamin A 3,000 mcg (10,000 unit) capsule 10,000 unit PO .COMPLEX Rx Instructions: 10,000 units orally every 3 day; vitamin B complex Capsule 1 cap PO DAILY HYDRO EYE 1 tab PO DAILY methenamine hippurate 1 GM tablet 1 g PO DAILY ferrous sulfate 325 mg (65 mg iron) tablet 325 mg PO DAILY Qty: 30 0RF metoprolol tartrate 25 mg tablet 25 mg PO BID Qty: 180 3RF Primary Care Provider: Yaya Brandt Chi Referrals: Yaya Brandt Chi, MD [Primary Care Provider] - Activity Restrictions/Additional Instructions: Please remove the wrap that was placed in the ER in the next 8 to 12 hours. Following this you may wash the wound with soap and water as you would normally and then please cover with a bandage during the day. Allow at least 4 hours of air exposure a day to help with healing. Return to the ER or see your family doctor in 7 to 10 days for suture removal. Please return to the ER if you have any further concerns Print Language: Wallisian Disposition Disposition: Home, Self Care Discharge Date/Time: 11/23/23 02:08
[2023-11-23] MEDS: Diphth,Pertuss(Acell),Tet Vac 0.5 ML Vial IM (02:06)
[2023-11-23 02:07] VITALS: BP 136/80; PULSE 80; RESP 18; TEMP 36.3; O2SAT 93
== END 2023-11-23 02:08 | disposition home or self-care (01) ==
PROVIDERS: Emergency Provider Emergency Medicine; PCP Family Medicine Geriatric Medicine; Visit Provider Emergency Medicine
DX: S81.811A Laceration without foreign body, right lower leg, initial encounter (principal); I48.0 Paroxysmal atrial fibrillation; Z87.891 Personal history of nicotine dependence; Z79.01 Long term (current) use of 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s; E78.5 Hyperlipidemia, unspecified; I25.10 Atherosclerotic heart disease of native coronary artery without angina pectoris; I10 Essential (primary) hypertension; W26.8XXA Contact with other sharp object(s), not elsewhere classified, initial encounter; E66.9 Obesity, unspecified; Z23 Encounter for immunization
CPT/HCPCS: 12001; 90471; 90715; 99282

== ENCOUNTER 2023-12-21 10:30 | Outpatient (RCR) | payer MEDICARE, OTHER, SELFPAY ==
[2023-11-23 00:40] VITALS: BP 142/70; PULSE 82; RESP 18; TEMP 36.7; BMI 27.6
[2023-11-30 10:10] VITALS: BP 144/81; PULSE 90; RESP 18; TEMP 36.1; BMI 27.6
--- NOTE | 2023-11-30 12:23 | PCM.WC.PN ---
History of Present Illness Date of Service: 11/30/23 Chief Complaint: Left lateral leg ulcer that was initially caused by trauma from bumping leg on edge of car. History of Wound: Patient is 83 year female who presents for further evaluation of an ulcer on her left posterolateral leg. She initially bumped her leg on her car frame when removing something from her car on 05/22/24 and needed sutures to her left anterior leg. She then developed increased pain, swelling and a hematoma to her left leg and was seen in the ED very early on 05/27/23. She is on chronic anticoagulation for Afib, her INR was 5.3 at that time. She was discharged home with follow up with her PCP later that day. She returned to the ED via squad later that day after she experienced a large amount of bleeding. The hematoma was evacuated in the ED under sedation. She was admitted to the hospital and she required transfusion of 1 unit PRBC when her hemoglobin dropped from 11 to 6.9. She was transferred to [facility] for a little while. She comes in today for further evaluation of her left posterolateral leg ulcer from a hematoma. She states she is doing well at home. Her daughter is helping her with her dressing changes. Wound care - Fibracol. 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 Wound cultures obtained 07/27/23 which were positive for Pseudomonas aeruginosa, MRSA, Corynebacterium striatum, and Anaerobic cocci. She was placed on Flagyl and finished them. She was placed on Levaquin and is tolerating them thus far. She was placed on Linezolid and stated she had some visual problems and stopped the antibiotic. Stopped the Clindamycin due severe heart burn. Re-cultured the ulcer on 08/25/23 and it was positive for Acinetobacter baumannii. Started her on Augmentin, which she has tolerated in the past. Today she denies fever, chills, nausea or vomiting. Her appetite is good. Patient was interested in advanced skin substitute grafts to help the ulcer to heal. She has been approved for Thera-Skin. Progress of Wound: The ulcer is smaller in size. Theraskin #10 was placed 2 weeks ago. The ulcer is smaller and is now a cluster. There is a beefy pink wound bed. Objective Data Objective Data Vital Signs: Vital Signs Temp Pulse Resp BP O2 Del Method 96.9 F L 90 18 144/81 H Room Air 11/30/23 10:10 11/30/23 10:10 11/30/23 10:10 11/30/23 10:10 11/30/23 10:10 Oxygen Delivery Method Room Air Weight: 170 lb 12.573 oz Body Mass Index (BMI) 27.6 Charges/Coding Procedures Integumentary 111xxx-113xx: 89152 Humera subq tissue 20 sq cm/< Debridement Note Debridement Note Wound debrided: #3 - Left posterolateral leg ulcer Laterality: Left Wound Grade/Stage: Grade III Type of Debridement: Excisional debridement Anesthesia Used: 5% Lidocaine Gel Depth: Down to and including healthy tissue and in the subcutaneous layer Percentage of wound debrided: 100 Instrument Used: 5mm curette Tissue Removed: subcutaneous tissue, senescent cells Severity: Fat Layer Exposed Amount of bleeding with debridement: Mild Bleeding Controlled with: Pressure and Compression and gauze Patient tolerated procedure: Patient tolerated procedure well Post-Debridement Measurements and Additional Note: Post-Debridement Measurements/Treatment WC - Nurse 1 - General Ulcer Assessment Start: 11/30/23 10:08 Freq: Status: Active Protocol: [place] Activity Type Activity Date Activity User E-sign Co-sign Detail Recorded Client Recorded Date Recorded By Document 11/30/23 10:10 KW h 11/30/23 10:13 KW 11/30/23 10:10 - Today's Visit Information Type of service 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 ) Arrival Mode Ambulatory Patient Identification Verified (Name & Yes ) Height and Weight Body Mass Index (BMI) 27.6 BMI Classification Overweight Vital Signs Temperature (97.8 F-99.1 F) 96.9 F L Temperature Source Temporal Pulse Rate (60-100) 90 Pulse Location Monitor Respiratory Rate (12-18) 18 Respiratory rate source Observation Oxygen Delivery Method Room Air Blood Pressure (90/60-120/80) 144/81 H Blood Pressure Mean (mm Hg) 102 Source Monitor Position Semi-Fowlers Blood Pressure Location Left Arm History Since Last Visit- (Skip if this is Patient's initial visit) Have you changed medications since your No last visit? Any new allergies or adverse reactions No Had a fall/change in ADL's that may No increase risk of falls Signs or symptoms of abuse and/or No neglect since last visit Have you been in the hospital since your No last visit? Has dressing in place as prescribed Yes Has compression in place as prescribed Yes Has offloadiing in place as prescribed N/A Experienced any changes in pain level or No management Left Footwear Regular Shoe Right Footwear Regular Shoe Pain Scale: 0-10 Numeric Is Patient Pain Free? Yes WC - Nurse 1 - General Ulcer Measurement Start: 11/30/23 10:08 Freq: Status: Active Protocol: Activity Type Activity Date Activity User E-sign Co-sign Detail Recorded Client Recorded Date Recorded By Document 11/30/23 10:10 KW h 11/30/23 10:13 KW 11/30/23 10:10 Wound Center Nurse 1 #3 L Calf -Current Size (cm) - Length 8 -Current Size (cm) - Width 1.5 -Current Size (cm) - Depth 0.1 -Total Square Cm 12.0 -Date of Last Picture (Recall this 11/30/23 field) -Exudate Amt Small -Exudate Type Serosanguineous -Wound Margin Distinct, Outline Attached -Granulation Amt None Present (0 %) -Granulation Quality Red -Necrosis Amt Small (1-33%) -Necrotic Tissue Type Adherent Slough -Texture (Karen-wound Skin Appearance) Assessed -Moisture (Karen-wound Skin Appearance) Assessed -Color (Karen-wound Skin Appearance) Assessed -Temperature (Karen-wound Skin No Abnormality Appearance) (Pt Warm) -Tenderness on Palpation (Karen-wound No Skin Appearance) -Ulcer Cleansing Soap and Water -Anesthetic Used 5% Lidocaine Gel Left Calf (cm) 34 Left Ankle (cm) 21 WC - Nurse 2 - General Ulcer CM Notes Start: 11/30/23 10:08 Freq: Status: Active Protocol: Activity Type Activity Date Activity User E-sign Co-sign Detail Recorded Client Recorded Date Recorded By Document 11/30/23 10:21 JF 11/30/23 10:24 JF 11/30/23 10:21 Wound Center Nurse 2 #3 L Calf -Time 10:22 -Correct Patient Yes -Correct Side, Site, Position Yes -Correct Procedure Yes -Procedure Performed Yes -Type of Procedure Debridement -Clinical Debridement Subcutaneous -Tissue Removed Subcutaneous -Post Debridement (cm) - Length 8.0 -Post Debridement (cm) - Width 1.0 -Post Debridement (cm) - Depth 0.1 -Total Square (Post) (cm) 8.00 -Area of Debridement (cm) - Length 8.0 -Area of Debridement (cm) - Width 1.0 -Total Square (Area) (cm) 8.00 -Tunneling No -Undermining/Tunneling No -Circular Undermining No -Wound/Ulcer Outcome Not Healed -Ulcer Cleansing Rinsed/ Irrigated with Saline -Foul Odor after Cleansing No -Bioengineered Tissue No -Bleeding Controlled with Pressure -Treatment Response Procedure Tolerated Well -Offloading No -Debridement - Subq, 1st 20sq cm Yes Pain Scale: 0-10 Numeric Is Patient Pain Free? Yes - Nurse 3 - General Ulcer D/C NN Start: 11/30/23 10:08 Freq: Status: Active Protocol: Activity Type Activity Date Activity User E-sign Co-sign Detail Recorded Client Recorded Date Recorded By Document 11/30/23 10:33 KW h 11/30/23 10:33 KW 11/30/23 10:33 Wound Care Center Nurse 3 #3 L Calf -Primary Dressing Applied Fibracol Plus 4x4 -Primary Dressing Covered/Secured with Dry Gauze & Roll Gauze, Secured with Tape -Fibracol Plus 4x4 1 Left -Tubular Bandage Double Layer -Size of Tubigrip Used Size E -Size E ($) 2 Pain Scale: 0-10 Numeric Is Patient Pain Free? 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: CODE(S): L97.902 - Non-pressure chronic ulcer of unspecified part of unspecified lower leg with fat layer exposed QUALIFIERS: Laterality: left Qualified Code(s): L97.922 - Non-pressure chronic ulcer of unspecified part of left lower leg with fat layer exposed (2) Contusion of left lower leg, sequela: CODE(S): S80.12XS - Contusion of left lower leg, sequela (3) Hematoma: CODE(S): T14.8XXA - Other injury of unspecified body region, initial encounter (4) Chronic anticoagulation: CODE(S): 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 Wound care - Fibrocol + covered with gauze/ABD every other day. May moisten the Fibrocol if needed. Wash the ulcer with soap and water at the time of the dressing change. Compression - Double tubigrip. Stressed importance of keeping legs elevated when sitting to help prevent edema. Follow-up one week.
--- NOTE | 2023-12-03 09:21 | WC ---
PHOTO 11/30/2023 LEFT CALF
[2023-12-07 14:31] VITALS: BP 128/86; PULSE 91; RESP 18; TEMP 36.5; BMI 27.6
--- NOTE | 2023-12-07 15:05 | PN.PCM_ITS ---
History of Present Illness Date of Service: 12/07/23 Chief Complaint: Left lateral leg ulcer that was initially caused by trauma from bumping leg on edge of car. History of Wound: Patient is 83 year female who presents for further evaluation of an ulcer on her left posterolateral leg. She initially bumped her leg on her car frame when removing something from her car on 05/22/24 and needed sutures to her left anterior leg. She then developed increased pain, swelling and a hematoma to her left leg and was seen in the ED very early on 05/27/23. She is on chronic anticoagulation for Afib, her INR was 5.3 at that time. She was discharged home with follow up with her PCP later that day. She returned to the ED via squad later that day after she experienced a large amount of bleeding. The hematoma was evacuated in the ED under sedation. She was admitted to the hospital and she required transfusion of 1 unit PRBC when her hemoglobin dropped from 11 to 6.9. She was transferred to [facility] for a little while. 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 She states she is doing well at home. Her daughter is helping her with her dressing changes. Wound care - Fibracol. She has a history of Afib, delphi developer coagulation, mitral valve regurgitation, cardiac ablation, cardiac pace maker, DVT, HTN, hyperlipidemia, rheumatoid arthritis, cataract removal, and multiple wounds in the past. Wound cultures obtained 07/27/23 which were positive for Pseudomonas aeruginosa, MRSA, Corynebacterium striatum, and Anaerobic cocci. She was placed on Flagyl and finished them. She was placed on Levaquin and is tolerating them thus far. She was placed on Linezolid and stated she had some visual problems and stopped the antibiotic. Stopped the Clindamycin due severe heart burn. Re-cultured the ulcer on 08/25/23 and it was positive for Acinetobacter baumannii. Started her on Augmentin, which she has tolerated in the past. Today she denies fever, chills, nausea or vomiting. Her appetite is good. Patient was interested in advanced skin substitute grafts to help the ulcer to heal. She has had 10 applications of Theraskin. Progress of Wound: The ulcer is smaller in size, it is now a cluster with a skin bridge the ulcer. The wound bed is beefy pink. Objective Data Objective Data Vital Signs: Vital Signs Temp Pulse Resp BP O2 Del Method 97.7 F L 91 18 128/86 H Room Air 12/07/23 14:31 12/07/23 14:31 12/07/23 14:31 12/07/23 14:31 11/30/23 10:10 Oxygen Delivery Method Room Air Weight: 170 lb 12.573 oz Body Mass Index (BMI) 27.6 Charges/Coding Procedures Integumentary 111xxx-113xx: 93535 Humera subq tissue 20 sq cm/< Debridement Note Debridement Note Wound debrided: #3 - Left posterolateral leg ulcer Laterality: Left Wound Grade/Stage: Grade III Type of Debridement: Excisional debridement Anesthesia Used: 5% Lidocaine Gel Depth: Down to and including healthy tissue and in the subcutaneous layer Percentage of wound debrided: 100 Instrument Used: 5mm curette Tissue Removed: subcutaneous tissue, senescent cells Severity: Fat Layer Exposed Amount of bleeding with debridement: Mild Bleeding Controlled with: Pressure and Compression and gauze Patient tolerated procedure: Patient tolerated procedure well Post-Debridement Measurements and Additional Note: Post-Debridement Measurements/Treatment - Nurse 1 - General Ulcer Assessment Start: 11/30/23 10:08 Freq: Status: Active Protocol: [email or web address] Activity Type Activity Date Activity User E-sign Co-sign Detail Recorded Client Recorded Date Recorded By Document 11/30/23 10:10 KW h 11/30/23 10:13 KW Document 12/07/23 14:31 DL [email or web address] 12/07/23 14:39 DL 11/30/23 12/07/23 10:10 14:31 - Today's Visit Information Type of service Follow-up Visit Follow-up Visit (Physician/WEIGHT CONTROL ENGINEER (Physician/WEIGHT CONTROL ENGINEER ) ) Arrival Mode Ambulatory Ambulatory Transfer Assistance None Patient Identification Verified (Name & Yes Yes ) Patient Requires Transmission-Based No Precautions Height and Weight Body Mass Index (BMI) 27.6 27.6 BMI Classification Overweight Overweight Vital Signs Temperature (97.8 F-99.1 F) 96.9 F L 97.7 F L Temperature Source Temporal Temporal Pulse Rate (60-100) 90 91 Pulse Location Monitor Monitor Respiratory Rate (12-18) 18 18 Respiratory rate source Observation Observation Oxygen Delivery Method Room Air Blood Pressure (90/60-120/80) 144/81 H 128/86 H Blood Pressure Mean (mm Hg) 102 100 Source Monitor Monitor Position Semi-Fowlers Blood Pressure Location Left Arm History Since Last Visit- (Skip if this is Patient's initial visit) Have you changed medications since your No No last visit? Any new allergies or adverse reactions No No Had a fall/change in ADL's that may No No increase risk of falls Signs or symptoms of abuse and/or No No neglect since last visit Have you been in the hospital since your No No last visit? Has dressing in place as prescribed Yes No Has compression in place as prescribed Yes Yes Has offloadiing in place as prescribed N/A N/A Experienced any changes in pain level or No No management Left Footwear Regular Shoe Right Footwear Regular Shoe Pain Scale: 0-10 Numeric Is Patient Pain Free? Yes Yes WC - Nurse 1 - General Ulcer Measurement Start: 11/30/23 10:08 Freq: Status: Active Protocol: Activity Type Activity Date Activity User E-sign Co-sign Detail Recorded Client Recorded Date Recorded By Document 11/30/23 10:10 KW h 11/30/23 10:13 KW Document 12/07/23 14:31 DL [email or web address] 12/07/23 14:39 DL 11/30/23 12/07/23 10:10 14:31 Wound Center Nurse 1 #3 L Calf -Current Size (cm) - Length 8 4.8 -Current Size (cm) - Width 1.5 5.5 -Current Size (cm) - Depth 0.1 0.1 -Total Square Cm 12.0 26.40 -Date of Last Picture (Recall this 11/30/23 field) -Exudate Amt Small Medium -Exudate Type Serosanguineous Serosanguineous -Wound Margin Distinct, Distinct, Outline Outline Attached Attached -Granulation Amt None Present (0 Medium (34-66%) %) -Granulation Quality Red Red -Necrosis Amt Small (1-33%) Small (1-33%) -Necrotic Tissue Type Adherent Slough Adherent Slough -Structure Exposed N/A -Texture (Karen-wound Skin Appearance) Assessed Friable, Scarring -Moisture (Karen-wound Skin Appearance) Assessed Dry/Scaly -Color (Karen-wound Skin Appearance) Assessed Hemosiderin Staining -Temperature (Karen-wound Skin No Abnormality Appearance) (Pt Warm) -Tenderness on Palpation (Karen-wound No Skin Appearance) -Ulcer Cleansing Soap and Water Soap and Water -Anesthetic Used 5% Lidocaine 4% Lidocaine Gel Solution Left Calf (cm) 34 38 Left Ankle (cm) 21 20.8 WC - Nurse 2 - General Ulcer CM Notes Start: 11/30/23 10:08 Freq: Status: Active Protocol: Activity Type Activity Date Activity User E-sign Co-sign Detail Recorded Client Recorded Date Recorded By Document 11/30/23 10:21 JF 00 11/30/23 10:24 JF Document 12/07/23 14:52 BMF 10...7 12/07/23 14:58 BMF Edit Result 12/07/23 14:52 BMF (1) [email or web address] 12/07/23 15:01 BMF (1) #3 L Calf - Post Debridement (cm) - Length => 6.7 - Post Debridement (cm) - Width => 1.3 - Post Debridement (cm) - Depth => 0.1 - Total Square (Post) (cm) => 8.71 - Area of Debridement (cm) - Length => 6.7 - Area of Debridement (cm) - Width => 1.3 - Total Square (Area) (cm) => 8.71 11/30/23 12/07/23 10:21 14:52 Wound Center Nurse 2 #3 L Calf -Time 10:22 14:52 -Correct Patient Yes Yes -Correct Side, Site, Position Yes Yes -Correct Procedure Yes Yes -Procedure Performed Yes Yes -Type of Procedure Debridement Debridement -Clinical Debridement Subcutaneous Subcutaneous -Tissue Removed Subcutaneous Subcutaneous -Post Debridement (cm) - Length 8.0 6.7 -Post Debridement (cm) - Width 1.0 1.3 -Post Debridement (cm) - Depth 0.1 0.1 -Total Square (Post) (cm) 8.00 8.71 -Area of Debridement (cm) - Length 8.0 6.7 -Area of Debridement (cm) - Width 1.0 1.3 -Total Square (Area) (cm) 8.00 8.71 -Tunneling No No -Undermining/Tunneling No No -Circular Undermining No No -Wound/Ulcer Outcome Not Healed Not Healed -Ulcer Cleansing Rinsed/ Rinsed/ Irrigated with Irrigated with Saline Saline -Foul Odor after Cleansing No No -Bioengineered Tissue No No -Bleeding Controlled with Pressure Pressure -Treatment Response Procedure Procedure Tolerated Well Tolerated Well -Offloading No -Debridement - Subq, 1st 20sq cm Yes Yes Pain Scale: 0-10 Numeric Is Patient Pain Free? Yes Yes - Nurse 3 - General Ulcer D/C NN Start: 11/30/23 10:08 Freq: Status: Active Protocol: Activity Type Activity Date Activity User E-sign Co-sign Detail Recorded Client Recorded Date Recorded By Document 11/30/23 10:33 KW h 11/30/23 10:33 KW 11/30/23 10:33 Wound Care Center Nurse 3 #3 L Calf -Primary Dressing Applied Fibracol Plus 4x4 -Primary Dressing Covered/Secured with Dry Gauze & Roll Gauze, Secured with Tape -Fibracol Plus 4x4 1 Left -Tubular Bandage Double Layer -Size of Tubigrip Used Size E -Size E ($) 2 Pain Scale: 0-10 Numeric Is Patient Pain Free? 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: CODE(S): L97.902 - Non-pressure chronic ulcer of unspecified part of unspecified lower leg with fat layer exposed QUALIFIERS: Laterality: left Qualified Code(s): L97.922 - Non- pressure chronic ulcer of unspecified part of left lower leg with fat layer exposed (2) Contusion of left lower leg, sequela: CODE(S): S80.12XS - Contusion of left lower leg, sequela (3) Hematoma: CODE(S): T14.8XXA - Other injury of unspecified body region, initial encounter (4) Chronic anticoagulation: CODE(S): 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 Wound care - Fibrocol + covered with gauze/ABD every other day. May moisten the Fibrocol if needed. Wash the ulcer with soap and water at the time of the dressing change. Compression - Double tubigrip. Stressed importance of keeping legs elevated when sitting to help prevent edema. Encouraged protein supplementation to help with wound healing. She has been using Daniel. Follow-up one week.
[2023-12-14 10:10] VITALS: BP 136/84; PULSE 93; RESP 16; TEMP 36.4; BMI 27.6
--- NOTE | 2023-12-14 13:10 | PN.PCM_ITS ---
History of Present Illness Date of Service: 12/14/23 Chief Complaint: Left lateral leg ulcer that was initially caused by trauma from bumping leg on edge of car. History of Wound: Patient is 83 year female who presents for further evaluation of an ulcer on her left posterolateral leg. She initially bumped her leg on her car frame when removing something from her car on 05/22/24 and needed sutures to her left anterior leg. She then developed increased pain, swelling and a hematoma to her left leg and was seen in the ED very early on 05/27/23. She is on chronic anticoagulation for Afib, her INR was 5.3 at that time. She was discharged home with follow up with her PCP later that day. She returned to the ED via squad later that day after she experienced a large amount of bleeding. The hematoma was evacuated in the ED under sedation. She was admitted to the hospital and she required transfusion of 1 unit PRBC when her hemoglobin dropped from 11 to 6.9. She was transferred to [facility] for a little while. 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 She states she is doing well at home. Her daughter is helping her with her dressing changes. Wound care - Fibracol. She has a history of Afib, chcf coagulation, mitral valve regurgitation, cardiac ablation, cardiac pace maker, DVT, HTN, hyperlipidemia, rheumatoid arthritis, cataract removal, and multiple wounds in the past. Wound cultures obtained 07/27/23 which were positive for Pseudomonas aeruginosa, MRSA, Corynebacterium striatum, and Anaerobic cocci. She was placed on Flagyl and finished them. She was placed on Levaquin and is tolerating them thus far. She was placed on Linezolid and stated she had some visual problems and stopped the antibiotic. Stopped the Clindamycin due severe heart burn. Re-cultured the ulcer on 08/25/23 and it was positive for Acinetobacter baumannii. Started her on Augmentin, which she has tolerated in the past. Today she denies fever, chills, nausea or vomiting. Her appetite is good. Patient was interested in advanced skin substitute grafts to help the ulcer to heal. She has had 10 applications of Theraskin. Progress of Wound: The ulcer cluster is smaller in size. The wound bed is beefy pink. Karen wound is clear. Objective Data Objective Data Vital Signs: Vital Signs Temp Pulse Resp BP O2 Del Method 97.5 F L 93 16 136/84 H Room Air 12/14/23 10:10 12/14/23 10:10 12/14/23 10:10 12/14/23 10:10 11/30/23 10:10 Oxygen Delivery Method Room Air Weight: 170 lb 12.573 oz Body Mass Index (BMI) 27.6 Charges/Coding Procedures Integumentary 111xxx-113xx: 95577 Humera subq tissue 20 sq cm/< Debridement Note Debridement Note Wound debrided: #3 - Left posterolateral leg ulcer Laterality: Left Wound Grade/Stage: Grade III Type of Debridement: Excisional debridement Anesthesia Used: 5% Lidocaine Gel Depth: Down to and including healthy tissue and in the subcutaneous layer Percentage of wound debrided: 100 Instrument Used: 5mm curette Tissue Removed: subcutaneous tissue, senescent cells Severity: Fat Layer Exposed Amount of bleeding with debridement: Mild Bleeding Controlled with: Pressure and Compression and gauze Patient tolerated procedure: Patient tolerated procedure well Post-Debridement Measurements and Additional Note: Post-Debridement Measurements/Treatment - Nurse 1 - General Ulcer Assessment Start: 11/30/23 10:08 Freq: Status: Active Protocol: [email or web address] Activity Type Activity Date Activity User E-sign Co-sign Detail Recorded Client Recorded Date Recorded By Document 11/30/23 10:10 KW h 11/30/23 10:13 KW Document 12/07/23 14:31 DL 10.10.25.7 12/07/23 14:39 DL Document 12/14/23 10:10 DL 10.10.25.7 12/14/23 10:15 DL 11/30/23 12/07/23 12/14/23 10:10 14:31 10:10 - Today's Visit Information Type of service Follow-up Visit Follow-up Visit Follow-up Visit (Physician/RADIO TIME SALES SUPERVISOR (Physician/RADIO TIME SALES SUPERVISOR (Physician/RADIO TIME SALES SUPERVISOR ) ) ) Arrival Mode Ambulatory Ambulatory Ambulatory Transfer Assistance None None Patient Identification Verified (Name & Yes Yes Yes ) Patient Requires Transmission-Based No No Precautions Height and Weight Body Mass Index (BMI) 27.6 27.6 27.6 BMI Classification Overweight Overweight Overweight Vital Signs Temperature (97.8 F-99.1 F) 96.9 F L 97.7 F L 97.5 F L Temperature Source Temporal Temporal Temporal Pulse Rate (60-100) 90 91 93 Pulse Location Monitor Monitor Monitor Respiratory Rate (12-18) 18 18 16 Respiratory rate source Observation Observation Observation Oxygen Delivery Method Room Air Blood Pressure (90/60-120/80) 144/81 H 128/86 H 136/84 H Blood Pressure Mean (mm Hg) 102 100 101 Source Monitor Monitor Monitor Position Semi-Fowlers Blood Pressure Location Left Arm History Since Last Visit- (Skip if this is Patient's initial visit) Have you changed medications since your No No No last visit? Any new allergies or adverse reactions No No No Had a fall/change in ADL's that may No No increase risk of falls Signs or symptoms of abuse and/or No No No neglect since last visit Have you been in the hospital since your No No No last visit? Has dressing in place as prescribed Yes No Yes Has compression in place as prescribed Yes Yes No Has offloadiing in place as prescribed N/A N/A Yes Experienced any changes in pain level or No No No management Left Footwear Regular Shoe Right Footwear Regular Shoe Pain Scale: 0-10 Numeric Is Patient Pain Free? Yes Yes Yes WC - Nurse 1 - General Ulcer Measurement Start: 11/30/23 10:08 Freq: Status: Active Protocol: Activity Type Activity Date Activity User E-sign Co-sign Detail Recorded Client Recorded Date Recorded By Document 11/30/23 10:10 KW h 11/30/23 10:13 KW Document 12/07/23 14:31 DL 10.10.25.7 12/07/23 14:39 DL Document 12/14/23 10:10 DL 10.10.25.7 12/14/23 10:15 DL 11/30/23 12/07/23 12/14/23 10:10 14:31 10:10 Wound Center Nurse 1 #3 L Calf -Current Size (cm) - Length 8 4.8 6 -Current Size (cm) - Width 1.5 5.5 0.9 -Current Size (cm) - Depth 0.1 0.1 0.1 -Total Square Cm 12.0 26.40 5.4 -Date of Last Picture (Recall this 11/30/23 field) -Photo Taken Yes -Exudate Amt Small Medium Medium -Exudate Type Serosanguineous Serosanguineous Serosanguineous -Wound Margin Distinct, Distinct, Distinct, Outline Outline Outline Attached Attached Attached -Granulation Amt None Present (0 Medium (34-66%) Large (67-100%) %) -Granulation Quality Red Red Red -Necrosis Amt Small (1-33%) Small (1-33%) Small (1-33%) -Necrotic Tissue Type Adherent Slough Adherent Slough Adherent Slough -Structure Exposed N/A N/A -Texture (Karen-wound Skin Appearance) Assessed Friable, Scarring Scarring -Moisture (Karen-wound Skin Appearance) Assessed Dry/Scaly No Abnormality -Color (Karen-wound Skin Appearance) Assessed Hemosiderin No Abnormality Staining -Temperature (Karen-wound Skin No Abnormality No Abnormality Appearance) (Pt Warm) (Pt Warm) -Tenderness on Palpation (Karen-wound No No Skin Appearance) -Ulcer Cleansing Soap and Water Soap and Water Soap and Water -Foul Odor after Cleansing No -Anesthetic Used 5% Lidocaine 4% Lidocaine 5% Lidocaine Gel Solution Gel Left Calf (cm) 34 38 38.4 Left Ankle (cm) 21 20.8 28.5 WC - Nurse 2 - General Ulcer CM Notes Start: 11/30/23 10:08 Freq: Status: Active Protocol: Activity Type Activity Date Activity User E-sign Co-sign Detail Recorded Client Recorded Date Recorded By Document 11/30/23 10:21 JF 00 11/30/23 10:24 JF Document 12/07/23 14:52 BMF 10.10.25.7 12/07/23 14:58 BMF Edit Result 12/07/23 14:52 BMF (1) 10.10.25.7 12/07/23 15:01 BMF Document 12/14/23 10:21 BMF 10.10.25.7 12/14/23 10:29 BMF (1) #3 L Calf - Post Debridement (cm) - Length => 6.7 - Post Debridement (cm) - Width => 1.3 - Post Debridement (cm) - Depth => 0.1 - Total Square (Post) (cm) => 8.71 - Area of Debridement (cm) - Length => 6.7 - Area of Debridement (cm) - Width => 1.3 - Total Square (Area) (cm) => 8.71 11/30/23 12/07/2312/13/24 10:21 14:52 10:21 Wound Center Nurse 2 #3 L Calf -Time 10: 14:52 10:21 -Correct Patient Yes Yes Yes -Correct Side, Site, Position Yes Yes Yes -Correct Procedure Yes Yes Yes -Procedure Performed Yes Yes Yes -Type of Procedure Debridement Debridement Debridement -Clinical Debridement Subcutaneous Subcutaneous Subcutaneous -Tissue Removed Subcutaneous Subcutaneous Subcutaneous -Post Debridement (cm) - Length 8.0 6.7 6.5 -Post Debridement (cm) - Width 1.0 1.3 1.1 -Post Debridement (cm) - Depth 0.1 0.1 0.2 -Total Square (Post) (cm) 8.00 8.71 7.15 -Area of Debridement (cm) - Length 8.0 6.7 6.5 -Area of Debridement (cm) - Width 1.0 1.3 1.1 -Total Square (Area) (cm) 8.00 8.71 7.15 -Tunneling No No No -Undermining/Tunneling No No No -Circular Undermining No No No -Wound/Ulcer Outcome Not Healed Not Healed Not Healed -Ulcer Cleansing Rinsed/ Rinsed/ Rinsed/ Irrigated with Irrigated with Irrigated with Saline Saline Saline -Foul Odor after Cleansing No No No -Bioengineered Tissue No No No -Bleeding Controlled with Pressure Pressure Pressure -Treatment Response Procedure Procedure Procedure Tolerated Well Tolerated Well Tolerated Well -Offloading No -Debridement - Subq, 1st 20sq cm Yes Yes Yes Pain Scale: 0-10 Numeric Is Patient Pain Free? Yes Yes Yes WC - Nurse 3 - General Ulcer D/C NN Start: 11/30/23 10:08 Freq: Status: Active Protocol: Activity Type Activity Date Activity User E-sign Co-sign Detail Recorded Client Recorded Date Recorded By Document 11/30/23 10:33 KW h 11/30/23 10:33 KW Document 12/07/23 15:07 BMF 10...7 12/07/23 15:08 BMF Document 12/14/23 10:44 DL 10..25.7 12/14/23 10:45 DL 11/30/23 12/07/23 12/14/23 10:33 15:07 10:44 Wound Care Center Nurse 3 #3 L Calf -Ulcer Cleansing Rinsed/ Rinsed/ Irrigated with Irrigated with Saline Saline -Foul Odor after Cleansing No No -Primary Dressing Applied Fibracol Plus 4x4 -Other Dressing ABD; FIBRACOL fibracol -Primary Dressing Covered/Secured with Dry Gauze & Dry Gauze & Dry Gauze & Roll Gauze, Roll Gauze, Roll Gauze, Secured with Secured with Secured with Tape Tape Tape -Fibracol Plus 4x4 1 0 Left -Tubular Bandage Double Layer Double Layer Double Layer -Size of Tubigrip Used Size E Size E Size E -Size E ($) 2 2 2 Treatment Response Procedure Procedure Tolerated Well Tolerated Well Pain Scale: 0-10 Numeric Is Patient Pain Free? 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: CODE(S): L97.902 - Non-pressure chronic ulcer of unspecified part of unspecified lower leg with fat layer exposed QUALIFIERS: Laterality: left Qualified Code(s): L97.922 - Non- pressure chronic ulcer of unspecified part of left lower leg with fat layer exposed (2) Contusion of left lower leg, sequela: CODE(S): S80.12XS - Contusion of left lower leg, sequela (3) Hematoma: CODE(S): T14.8XXA - Other injury of unspecified body region, initial encounter (4) Chronic anticoagulation: CODE(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 Wound care - Fibrocol + covered with gauze/ABD every other day. May moisten the Fibrocol if needed. Wash the ulcer with soap and water at the time of the dressing change. Compression - Double tubigrip. Stressed importance of keeping legs elevated when sitting to help prevent edema. Encouraged protein supplementation to help with wound healing. She has been using Daniel. Follow-up one week.
[2023-12-21 10:40] VITALS: BP 149/90; PULSE 92; RESP 18; TEMP 36.4; BMI 27.6
--- NOTE | 2023-12-21 12:22 | PCM.WC.PN ---
History of Present Illness Date of Service: 12/21/23 Chief Complaint: Left lateral leg ulcer that was initially caused by trauma from bumping leg on edge of car. History of Wound: Patient is 83 year female who presents for further evaluation of an ulcer on her left posterolateral leg. She initially bumped her leg on her car frame when removing something from her car on 05/22/24 and needed sutures to her left anterior leg. She then developed increased pain, swelling and a hematoma to her left leg and was seen in the ED very early on 05/27/23. She is on chronic anticoagulation for Afib, her INR was 5.3 at that time. She was discharged home with follow up with her PCP later that day. She returned to the ED via squad later that day after she experienced a large amount of bleeding. The hematoma was evacuated in the ED under sedation. She was admitted to the hospital and she required transfusion of 1 unit PRBC when her hemoglobin dropped from 11 to 6.9. She was transferred to [facility] for a little while. She comes in today for further evaluation of her left posterolateral leg ulcer from a hematoma. She states she is doing well at home. Her daughter is helping her with her dressing changes. Wound care - Fibracol. 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 Wound cultures obtained 07/27/23 which were positive for Pseudomonas aeruginosa, MRSA, Corynebacterium striatum, and Anaerobic cocci. She was placed on Flagyl and finished them. She was placed on Levaquin and is tolerating them thus far. She was placed on Linezolid and stated she had some visual problems and stopped the antibiotic. Stopped the Clindamycin due severe heart burn. Re-cultured the ulcer on 08/25/23 and it was positive for Acinetobacter baumannii. Started her on Augmentin, which she has tolerated in the past. Today she denies fever, chills, nausea or vomiting. Her appetite is good. Patient was interested in advanced skin substitute grafts to help the ulcer to heal. She has had 10 applications of Theraskin. Progress of Wound: The ulcer cluster is smaller in size. The wound bed is beefy pink. Karen wound is clear. Objective Data Objective Data Vital Signs: Vital Signs Temp Pulse Resp BP O2 Del Method 97.5 F L 92 18 149/90 H Room Air 12/21/23 10:40 12/21/23 10:40 12/21/23 10:40 12/21/23 10:40 11/30/23 10:10 Oxygen Delivery Method Room Air Weight: 170 lb 12.573 oz Body Mass Index (BMI) 27.6 Charges/Coding Procedures Integumentary [id number]: [id number] Humera subq tissue 20 sq cm/< Debridement Note Debridement Note Wound debrided: #3 - Left posterolateral leg ulcer Laterality: Left Wound Grade/Stage: Grade III Type of Debridement: Excisional debridement Anesthesia Used: 5% Lidocaine Gel Depth: Down to and including healthy tissue and in the subcutaneous layer Percentage of wound debrided: 100 Instrument Used: 5mm curette Tissue Removed: subcutaneous tissue, senescent cells Severity: Fat Layer Exposed Amount of bleeding with debridement: Mild Bleeding Controlled with: Pressure and Compression and gauze Patient tolerated procedure: Patient tolerated procedure well Post-Debridement Measurements and Additional Note: Post-Debridement Measurements/Treatment - Nurse 1 - General Ulcer Assessment Start: 11/30/23 10:08 Freq: Status: Active Protocol: MIKE.SONIA Activity Type Activity Date Activity User E-sign Co-sign Detail Recorded Client Recorded Date Recorded By Document 11/30/23 10:10 KW h 11/30/23 10:13 KW Document 12/07/23 14:31 DL [id number] 12/07/23 14:39 DL Document 12/14/23 10:10 DL [email or web address] 12/14/23 10:15 DL Document 12/21/23 10:40 DL [email or web address] 12/21/23 10:45 DL 11/30/23 12/07/23 12/14/23 10:10 14:31 10:10 - Today's Visit Information Type of service Follow-up Visit Follow-up Visit Follow-up Visit (Physician/[employer]OTTOM [employer] (Physician/BOTT[employer] POUNDER [employer] (Physician/BOTTOM POUNDER [employer] ) ) ) Arrival Mode Ambulatory Ambulatory Ambulatory Transfer Assistance None None Patient Identification Verified (Name & Yes Yes Yes ) Patient Requires Transmission-Based No No Precautions Height and Weight Body Mass Index (BMI) 27.6 27.6 27.6 BMI Classification Overweight Overweight Overweight Vital Signs Temperature (97.8 F-99.1 F) 96.9 F L 97.7 F L 97.5 F L Temperature Source Temporal Temporal Temporal Pulse Rate (60-100) 90 91 93 Pulse Location Monitor Monitor Monitor Respiratory Rate (12-18) 18 18 16 Respiratory rate source Observation Observation Observation Oxygen Delivery Method Room Air Blood Pressure (90/60-120/80) 144/81 H 128/86 H 136/84 H Blood Pressure Mean (mm Hg) 102 100 101 Source Monitor Monitor Monitor Position Semi-Fowlers Blood Pressure Location Left Arm History Since Last Visit- (Skip if this is Patient's initial visit) Have you changed medications since your No No No last visit? Any new allergies or adverse reactions No No No Had a fall/change in ADL's that may No No increase risk of falls Signs or symptoms of abuse and/or No No No neglect since last visit Have you been in the hospital since your No No No last visit? Has dressing in place as prescribed Yes No Yes Has compression in place as prescribed Yes Yes No Has offloadiing in place as prescribed N/A N/A Yes Experienced any changes in pain level or No No No management Left Footwear Regular Shoe Right Footwear Regular Shoe Pain Scale: 0-10 Numeric Is Patient Pain Free? Yes Yes Yes 12/21/23 10:40 WC - Today's Visit Information Type of service Follow-up Visit (Physician/[employer]OTT[employer] P[employer] ) Arrival Mode Ambulatory Transfer Assistance None Patient Identification Verified (Name & Yes ) Patient Requires Transmission-Based No Precautions Height and Weight Body Mass Index (BMI) 27.6 BMI Classification Overweight Vital Signs Temperature (97.8 F-99.1 F) 97.5 F L Temperature Source Temporal Pulse Rate (60-100) 92 Pulse Location Monitor Respiratory Rate (12-18) 18 Respiratory rate source Oxygen Delivery Method Blood Pressure (90/60-120/80) 149/90 H Blood Pressure Mean (mm Hg) 109 Source Monitor Position Blood Pressure Location History Since Last Visit- (Skip if this is Patient's initial visit) Have you changed medications since your No last visit? Any new allergies or adverse reactions No Had a fall/change in ADL's that may No increase risk of falls Signs or symptoms of abuse and/or No neglect since last visit Have you been in the hospital since your No last visit? Has dressing in place as prescribed Yes Has compression in place as prescribed Yes Has offloadiing in place as prescribed N/A Experienced any changes in pain level or Yes management Left Footwear Regular Shoe Right Footwear Regular Shoe Pain Scale: 0-10 Numeric Is Patient Pain Free? Yes WC - Nurse 1 - General Ulcer Measurement Start: 11/30/23 10:08 Freq: Status: Active Protocol: Activity Type Activity Date Activity User E-sign Co-sign Detail Recorded Client Recorded Date Recorded By Document 11/30/23 10:10 KW h 11/30/23 10:13 KW Document 12/07/23 14:31 DL [email or web address] 12/07/23 14:39 DL Document 12/14/23 10:10 DL [email or web address] 12/14/23 10:15 DL Document 12/21/23 10:40 DL [email or web address] 12/21/23 10:45 DL 11/30/23 12/07/23 12/14/23 10:10 14:31 10:10 Wound Center Nurse 1 #3 L Calf -Current Size (cm) - Length 8 4.8 6 -Current Size (cm) - Width 1.5 5.5 0.9 -Current Size (cm) - Depth 0.1 0.1 0.1 -Total Square Cm 12.0 26.40 5.4 -Date of Last Picture (Recall this 11/30/23 field) -Photo Taken Yes -Exudate Amt Small Medium Medium -Exudate Type Serosanguineous Serosanguineous Serosanguineous -Wound Margin Distinct, Distinct, Distinct, Outline Outline Outline Attached Attached Attached -Granulation Amt None Present (0 Medium (34-66%) Large (67-100%) %) -Granulation Quality Red Red Red -Necrosis Amt Small (1-33%) Small (1-33%) Small (1-33%) -Necrotic Tissue Type Adherent Slough Adherent Slough Adherent Slough -Structure Exposed N/A N/A -Texture (Karen-wound Skin Appearance) Assessed Friable, Scarring Scarring -Moisture (Karen-wound Skin Appearance) Assessed Dry/Scaly No Abnormality -Color (Karen-wound Skin Appearance) Assessed Hemosiderin No Abnormality Staining -Temperature (Karen-wound Skin No Abnormality No Abnormality Appearance) (Pt Warm) (Pt Warm) -Tenderness on Palpation (Karen-wound No No Skin Appearance) -Ulcer Cleansing Soap and Water Soap and Water Soap and Water -Foul Odor after Cleansing No -Anesthetic Used 5% Lidocaine 4% Lidocaine 5% Lidocaine Gel Solution Gel Left Calf (cm) 34 38 38.4 Left Ankle (cm) 21 20.8 28.5 12/21/23 10:40 Wound Center Nurse 1 #3 L Calf -Current Size (cm) - Length 4.4 -Current Size (cm) - Width 5.5 -Current Size (cm) - Depth 0.2 -Total Square Cm 24.20 -Date of Last Picture (Recall this field) -Photo Taken Yes -Exudate Amt Medium -Exudate Type Serosanguineous -Wound Margin Distinct, Outline Attached -Granulation Amt Large (67-100%) -Granulation Quality Red -Necrosis Amt Small (1-33%) -Necrotic Tissue Type Adherent Slough -Structure Exposed N/A -Texture (Karen-wound Skin Appearance) Scarring,Rash -Moisture (Karen-wound Skin Appearance) Dry/Scaly -Color (Karen-wound Skin Appearance) No Abnormality -Temperature (Karen-wound Skin No Abnormality Appearance) (Pt Warm) -Tenderness on Palpation (Karen-wound No Skin Appearance) -Ulcer Cleansing Soap and Water -Foul Odor after Cleansing No -Anesthetic Used 5% Lidocaine Gel Left Calf (cm) 38 Left Ankle (cm) 21 - Nurse 2 - General Ulcer CM Notes Start: 11/30/23 10:08 Freq: Status: Active Protocol: Activity Type Activity Date Activity User E-sign Co-sign Detail Recorded Client Recorded Date Recorded By Document 11/30/23 10:21 JF 00 11/30/23 10:24 JF Document 12/07/23 14:52 BMF [email or web address] 12/07/23 14:58 BMF Edit Result 12/07/23 14:52 BMF (1) [email or web address] 12/07/23 15:01 BMF Document 12/14/23 10:21 BMF [email or web address] 12/14/23 10:29 BMF Document 12/21/23 10:55 BMF [email or web address] 12/21/23 11:02 BMF (1) #3 L Calf - Post Debridement (cm) - Length => 6.7 - Post Debridement (cm) - Width => 1.3 - Post Debridement (cm) - Depth => 0.1 - Total Square (Post) (cm) => 8.71 - Area of Debridement (cm) - Length => 6.7 - Area of Debridement (cm) - Width => 1.3 - Total Square (Area) (cm) => 8.71 11/30/23 12/07/23 12/14/23 10:21 14:52 10:21 Wound Center Nurse 2 #3 L Calf -Time 10: 14:52 10:21 -Correct Patient Yes Yes Yes -Correct Side, Site, Position Yes Yes Yes -Correct Procedure Yes Yes Yes -Procedure Performed Yes Yes Yes -Type of Procedure Debridement Debridement Debridement -Clinical Debridement Subcutaneous Subcutaneous Subcutaneous -Tissue Removed Subcutaneous Subcutaneous Subcutaneous -Post Debridement (cm) - Length 8.0 6.7 6.5 -Post Debridement (cm) - Width 1.0 1.3 1.1 -Post Debridement (cm) - Depth 0.1 0.1 0.2 -Total Square (Post) (cm) 8.00 8.71 7.15 -Area of Debridement (cm) - Length 8.0 6.7 6.5 -Area of Debridement (cm) - Width 1.0 1.3 1.1 -Total Square (Area) (cm) 8.00 8.71 7.15 -Tunneling No No No -Undermining/Tunneling No No No -Circular Undermining No No No -Wound/Ulcer Outcome Not Healed Not Healed Not Healed -Ulcer Cleansing Rinsed/ Rinsed/ Rinsed/ Irrigated with Irrigated with Irrigated with Saline Saline Saline -Foul Odor after Cleansing No No No -Bioengineered Tissue No No No -Bleeding Controlled with Pressure Pressure Pressure -Treatment Response Procedure Procedure Procedure Tolerated Well Tolerated Well Tolerated Well -Offloading No -Debridement - Subq, 1st 20sq cm Yes Yes Yes Pain Scale: 0-10 Numeric Is Patient Pain Free? Yes Yes Yes 12/21/23 10:55 Wound Center Nurse 2 #3 L Calf -Time 10:56 -Correct Patient Yes -Correct Side, Site, Position Yes -Correct Procedure Yes -Procedure Performed Yes -Type of Procedure Debridement -Clinical Debridement Subcutaneous -Tissue Removed Subcutaneous -Post Debridement (cm) - Length 5.7 -Post Debridement (cm) - Width 1.7 -Post Debridement (cm) - Depth 0.2 -Total Square (Post) (cm) 9.69 -Area of Debridement (cm) - Length 5.7 -Area of Debridement (cm) - Width 1.7 -Total Square (Area) (cm) 9.69 -Tunneling No -Undermining/Tunneling No -Circular Undermining No -Wound/Ulcer Outcome Not Healed -Ulcer Cleansing Rinsed/ Irrigated with Saline -Foul Odor after Cleansing No -Bioengineered Tissue No -Bleeding Controlled with Pressure -Treatment Response Procedure Tolerated Well -Offloading -Debridement - Subq, 1st 20sq cm Yes Pain Scale: 0-10 Numeric Is Patient Pain Free? Yes - Nurse 3 - General Ulcer D/C NN Start: 11/30/23 10:08 Freq: Status: Active Protocol: Activity Type Activity Date Activity User E-sign Co-sign Detail Recorded Client Recorded Date Recorded By Document 11/30/23 10:33 KW h 11/30/23 10:33 KW Document 12/07/23 15:07 BMF [email or web address] 12/07/23 15:08 BMF Document 12/14/23 10:44 DL [email or web address] 12/14/23 10:45 DL Document 12/21/23 11:14 DL [email or web address] 12/21/23 11:16 DL 11/30/23 12/07/23 12/14/23 10:33 15:07 10:44 Wound Care Center Nurse 3 #3 L Calf -Ulcer Cleansing Rinsed/ Rinsed/ Irrigated with Irrigated with Saline Saline -Foul Odor after Cleansing No No -Primary Dressing Applied Fibracol Plus 4x4 -Other Dressing ABD; FIBRACOL fibracol -Primary Dressing Covered/Secured with Dry Gauze & Dry Gauze & Dry Gauze & Roll Gauze, Roll Gauze, Roll Gauze, Secured with Secured with Secured with Tape Tape Tape -Fibracol Plus 4x4 1 0 Left -Tubular Bandage Double Layer Double Layer Double Layer -Size of Tubigrip Used Size E Size E Size E -Size E ($) 2 2 2 Treatment Response Procedure Procedure Tolerated Well Tolerated Well Pain Scale: 0-10 Numeric Is Patient Pain Free? Yes Yes Yes WC - Visit Discharge Discharge Condition Stable Stable Stable Ambulatory Status Ambulatory Ambulatory Ambulatory Transportation Private Auto Private Auto Private Auto Medication Reconcilliation completed & No provided to patient/care provider Clinical Summary of Care Provided Yes 12/21/23 11:14 Wound Care Center Nurse 3 #3 L Calf -Ulcer Cleansing Rinsed/ Irrigated with Saline -Foul Odor after Cleansing No -Primary Dressing Applied -Other Dressing fibracol -Primary Dressing Covered/Secured with Dry Gauze & Roll Gauze, Secured with Tape -Fibracol Plus 4x4 Left -Tubular Bandage Double Layer -Size of Tubigrip Used Size E -Size E ($) 2 Treatment Response Procedure Tolerated Well Pain Scale: 0-10 Numeric Is Patient Pain Free? 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: CODE(S): L97.902 - Non-pressure chronic ulcer of unspecified part of unspecified lower leg with fat layer exposed QUALIFIERS: Laterality: left Qualified Code(s): L97.922 - Non-pressure chronic ulcer of unspecified part of left lower leg with fat layer exposed (2) Contusion of left lower leg, sequela: CODE(S): S80.12XS - Contusion of left lower leg, sequela (3) Hematoma: CODE(S): T14.8XXA - Other injury of unspecified body region, initial encounter (4) Chronic anticoagulation: CODE(S): 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 Wound care - Fibrocol + covered with gauze/ABD every other day. May moisten the Fibrocol if needed. Wash the ulcer with soap and water at the time of the dressing change. Compression - Double tubigrip. Stressed importance of keeping legs elevated when sitting to help prevent edema. Encouraged protein supplementation to help with wound healing. She has been using Daniel. Follow-up two weeks.
--- NOTE | 2023-12-23 09:34 | WC ---
PHOTO 12/14/23 LEFT CALF CLUSTER
--- NOTE | 2023-12-25 08:50 | WC ---
PHOTO 12/21/23 LEFT CALF
== END 2023-12-23 23:59 | disposition home or self-care (01) ==
LOC: WC 10:30
PROVIDERS: PCP Family Medicine Geriatric Medicine; Referring Provider Family Medicine Geriatric Medicine; Visit Provider Nurse Practitioner Family
DX: L97.902 Non-pressure chronic ulcer of unspecified part of unspecified lower leg with fat layer exposed (principal); I48.91 Unspecified atrial fibrillation; Z79.01 Long term (current) use of 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s; Z95.0 Presence of cardiac pacemaker; Z86.718 Personal history of other venous thrombosis and embolism; I10 Essential (primary) hypertension; E78.5 Hyperlipidemia, unspecified; S80.12XS Contusion of left lower leg, sequela; T14.8XXA Other injury of unspecified body region, initial encounter
CPT/HCPCS: 11042

== ENCOUNTER 2024-01-18 09:30 | Outpatient (RCR) | payer MEDICARE, OTHER, SELFPAY ==
[2023-12-24 00:45] VITALS: BP 142/70; PULSE 82; RESP 18; TEMP 36.7; BMI 27.6
[2024-01-04 08:44] VITALS: BP 166/86; PULSE 95; RESP 16; BMI 27.6
--- NOTE | 2024-01-04 12:58 | PCM.WC.PN ---
History of Present Illness Date of Service: 01/04/24 Chief Complaint: Left lateral leg ulcer that was initially caused by trauma from bumping leg on edge of car. History of Wound: Patient is 83 year female who presents for further evaluation of an ulcer on her left posterolateral leg. She initially bumped her leg on her car frame when removing something from her car on 05/22/24 and needed sutures to her left anterior leg. She then developed increased pain, swelling and a hematoma to her left leg and was seen in the ED very early on 05/27/23. She is on chronic anticoagulation for Afib, her INR was 5.3 at that time. She was discharged home with follow up with her PCP later that day. She returned to the ED via squad later that day after she experienced a large amount of bleeding. The hematoma was evacuated in the ED under sedation. She was admitted to the hospital and she required transfusion of 1 unit PRBC when her hemoglobin dropped from 11 to 6.9. She was transferred to [facility] for a little while. She comes in today for further evaluation of her left posterolateral leg ulcer from a hematoma. She states she is doing well at home. Her daughter is helping her with her dressing changes. Wound care - Fibracol. She has a history of Afib, emt intermediate coagulation, mitral valve regurgitation, cardiac ablation, cardiac pace maker, DVT, HTN, hyperlipidemia, rheumatoid arthritis, cataract removal, and multiple wounds in the past. Wound cultures obtained 07/27/23 which were positive for Pseudomonas aeruginosa, MRSA, Corynebacterium striatum, and Anaerobic cocci. She was placed on Flagyl and finished them. She was placed on Levaquin and is tolerating them thus far. She was placed on Linezolid and stated she had some visual problems and stopped the antibiotic. Stopped the Clindamycin due severe heart burn. Re-cultured the ulcer on 08/25/23 and it was positive for Acinetobacter baumannii. Started her on Augmentin, which she has tolerated in the past. Today she denies fever, chills, nausea or vomiting. Her appetite is good. Patient was interested in advanced skin substitute grafts to help the ulcer to heal. She has had 10 applications of Theraskin. Objective Data Objective Data Vital Signs: Vital Signs Temp Pulse Resp BP O2 Del Method 98.1 F 95 16 166/86 H Room Air 12/24/23 00:45 01/04/24 08:44 01/04/24 08:44 01/04/24 08:44 01/04/24 08:44 Oxygen Delivery Method Room Air Weight: 170 lb 12.573 oz Body Mass Index (BMI) 27.6 Debridement Note Debridement Note Post-Debridement Measurements and Additional Note: Post-Debridement Measurements/Treatment MIKE - Nurse 1 - General Ulcer Assessment Start: 01/04/24 08:44 Freq: Status: Active Protocol: LAWRENCE Activity Type Activity Date Activity User E-sign Co-sign Detail Recorded Client Recorded Date Recorded By Document 01/04/24 08:44 BMF 10.10.25.7 01/04/24 08:47 BMF 01/04/24 08:44 WC - Today's Visit Information Type of service Follow-up Visit (Physician/[employer]ALES REPRESENTATIVE [employer] ) Arrival Mode Ambulatory Transfer Assistance None Patient Identification Verified (Name & Yes ) Patient Requires Transmission-Based No Precautions Height and Weight Body Mass Index (BMI) 27.6 BMI Classification Overweight Vital Signs Pulse Rate (60-100) 95 Pulse Location Monitor Respiratory Rate (12-18) 16 Respiratory rate source Observation Oxygen Delivery Method Room Air Blood Pressure (90/60-120/80) 166/86 H Blood Pressure Mean (mm Hg) 112 Source Monitor Position Sitting Blood Pressure Location Left Arm History Since Last Visit- (Skip if this is Patient's initial visit) Have you changed medications since your No last visit? Any new allergies or adverse reactions No Had a fall/change in ADL's that may No increase risk of falls Signs or symptoms of abuse and/or No neglect since last visit Have you been in the hospital since your No last visit? Has dressing in place as prescribed Yes Has compression in place as prescribed Yes Has offloadiing in place as prescribed N/A Experienced any changes in pain level or No management Left Footwear Regular Shoe Right Footwear Regular Shoe Pain Scale: 0-10 Numeric Is Patient Pain Free? Yes - Nurse 1 - General Ulcer Measurement Start: 01/04/24 08:44 Freq: Status: Active Protocol: Activity Type Activity Date Activity User E-sign Co-sign Detail Recorded Client Recorded Date Recorded By Document 01/04/24 08:44 BMF 10.10.25.7 01/04/24 08:47 BMF 08/12/24 08:44 Wound Center Nurse 1 #3 L Calf cluster -Combined with other wound No -Current Size (cm) - Length 5.7 -Current Size (cm) - Width 3.6 -Current Size (cm) - Depth 0.1 -Total Square Cm 20.52 -Date of Last Picture (Recall this 01/04/24 field) -Granulation Amt Large (67-100%) -Granulation Quality Red -Texture (Karen-wound Skin Appearance) Assessed, Scarring -Moisture (Karen-wound Skin Appearance) Assessed -Color (Karen-wound Skin Appearance) Assessed -Temperature (Karen-wound Skin No Abnormality Appearance) (Pt Warm) -Tenderness on Palpation (Karen-wound No Skin Appearance) -Ulcer Cleansing Rinsed/ Irrigated with Saline -Foul Odor after Cleansing No -Anesthetic Used 5% Lidocaine Gel Left Calf (cm) 40 Left Ankle (cm) 20.8 WC - Nurse 2 - General Ulcer CM Notes Start: 01/04/24 08:44 Freq: Status: Active Protocol: Activity Type Activity Date Activity User E-sign Co-sign Detail Recorded Client Recorded Date Recorded By Document 01/04/24 08:58 [id number] 01/04/24 09:02 01/04/24 08:58 Wound Center Nurse 2 #3 L Calf cluster -Time 08:59 -Correct Patient Yes -Correct Side, Site, Position Yes -Correct Procedure Yes -Procedure Performed Yes -Type of Procedure Debridement -Clinical Debridement Subcutaneous -Tissue Removed Subcutaneous -Post Debridement (cm) - Length 6 -Post Debridement (cm) - Width 4 -Post Debridement (cm) - Depth 0.1 -Total Square (Post) (cm) 24 -Area of Debridement (cm) - Length 6 -Area of Debridement (cm) - Width 4 -Total Square (Area) (cm) 24 -Tunneling No -Undermining/Tunneling No -Circular Undermining No -Wound/Ulcer Outcome Not Healed -Ulcer Cleansing Rinsed/ Irrigated with Saline -Foul Odor after Cleansing No -Bioengineered Tissue No -Bleeding Controlled with Pressure -Treatment Response Procedure Tolerated Well -Offloading No -Debridement - Subq, 1st 20sq cm Yes -Debridement, SubQ, ea addt'l 20sq cm 1 or part thereof Pain Scale: 0-10 Numeric Is Patient Pain Free? Yes - Nurse 3 - General Ulcer D/C NN Start: 01/04/24 08:44 Freq: Status: Active Protocol: Activity Type Activity Date Activity User E-sign Co-sign Detail Recorded Client Recorded Date Recorded By Document 01/04/24 09:10 [facility] 10.10.25.7 01/04/24 09:11 [facility] 01/04/24 09:10 Wound Care Center Nurse 3 #3 L Calf cluster -Ulcer Cleansing Rinsed/ Irrigated with Saline -Foul Odor after Cleansing No -Primary Dressing Applied Mepilex Border -Other Dressing fibracol -Mepilex Border 3 Left -Other reapplied pts own double layer size E tubi Treatment Response Procedure Tolerated Well Pain Scale: 0-10 Numeric Is Patient Pain Free? Yes WC - Visit Discharge Discharge Condition Stable Ambulatory Status Ambulatory Transportation Private Auto
--- NOTE | 2024-01-04 13:31 | PCM.WC.PN ---
History of Present Illness Date of Service: 01/04/24 Chief Complaint: Left lateral leg ulcer that was initially caused by trauma from bumping leg on edge of car. History of Wound: Patient is 83 year female who presents for further evaluation of an ulcer on her left posterolateral leg. She initially bumped her leg on her car frame when removing something from her car on 05/22/24 and needed sutures to her left anterior leg. She then developed increased pain, swelling and a hematoma to her left leg and was seen in the ED very early on 05/27/23. She is on chronic anticoagulation for Afib, her INR was 5.3 at that time. She was discharged home with follow up with her PCP later that day. She returned to the ED via squad later that day after she experienced a large amount of bleeding. The hematoma was evacuated in the ED under sedation. She was admitted to the hospital and she required transfusion of 1 unit PRBC when her hemoglobin dropped from 11 to 6.9. She was transferred to [facility] for a little while. She comes in today for further evaluation of her left posterolateral leg ulcer from a hematoma. She states she is doing well at home. Her daughter is helping her with her dressing changes. Wound care - Fibracol. 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 Wound cultures obtained 07/27/23 which were positive for Pseudomonas aeruginosa, MRSA, Corynebacterium striatum, and Anaerobic cocci. She was placed on Flagyl and finished them. She was placed on Levaquin and is tolerating them thus far. She was placed on Linezolid and stated she had some visual problems and stopped the antibiotic. Stopped the Clindamycin due severe heart burn. Re-cultured the ulcer on 08/25/23 and it was positive for Acinetobacter baumannii. Started her on Augmentin, which she has tolerated in the past. Today she denies fever, chills, nausea or vomiting. Her appetite is good. Patient was interested in advanced skin substitute grafts to help the ulcer to heal. She has had 10 applications of Theraskin. Progress of Wound: She has a new area that is open from tape tear. It makes the ulcer cluster slightly larger, although the original ulcer cluster is smaller. The wound bed is beefy pink. Karen wound is clear. Objective Data Objective Data Vital Signs: Vital Signs Temp Pulse Resp BP O2 Del Method 98.1 F 95 16 166/86 H Room Air 12/24/23 00:45 01/04/24 08:44 01/04/24 08:44 01/04/24 08:44 01/04/24 08:44 Oxygen Delivery Method Room Air Weight: 170 lb 12.573 oz Body Mass Index (BMI) 27.6 Charges/Coding Procedures Integumentary 111xxx-113xx: 53653 Humera subq tissue 20 sq cm/< Add On Codes: 83909 Humera subq tissue add-on Debridement Note Debridement Note Wound debrided: #3 - Left posterolateral leg ulcer cluster Laterality: Left Wound Grade/Stage: Grade III Type of Debridement: Excisional debridement Anesthesia Used: 5% Lidocaine Gel Depth: Down to and including healthy tissue and in the subcutaneous layer Percentage of wound debrided: 100 Instrument Used: 5mm curette Tissue Removed: subcutaneous tissue, senescent cells Severity: Fat Layer Exposed Amount of bleeding with debridement: Mild Bleeding Controlled with: Pressure and Compression and gauze Patient tolerated procedure: Patient tolerated procedure well Post-Debridement Measurements and Additional Note: Post-Debridement Measurements/Treatment - Nurse 1 - General Ulcer Assessment Start: 01/04/24 08:44 Freq: Status: Active Protocol: LAWRENCE Activity Type Activity Date Activity User E-sign Co-sign Detail Recorded Client Recorded Date Recorded By Document 01/04/24 08:44 [facility] 10.10.25.7 01/04/24 08:47 [facility] 01/04/24 08:44 - Today's Visit Information Type of service Follow-up Visit (Physician/TOOLMAKER ) Arrival Mode Ambulatory Transfer Assistance None Patient Identification Verified (Name & Yes ) Patient Requires Transmission-Based No Precautions Height and Weight Body Mass Index (BMI) 27.6 BMI Classification Overweight Vital Signs Pulse Rate (60-100) 95 Pulse Location Monitor Respiratory Rate (12-18) 16 Respiratory rate source Observation Oxygen Delivery Method Room Air Blood Pressure (90/60-120/80) 166/86 H Blood Pressure Mean (mm Hg) 112 Source Monitor Position Sitting Blood Pressure Location Left Arm History Since Last Visit- (Skip if this is Patient's initial visit) Have you changed medications since your No last visit? Any new allergies or adverse reactions No Had a fall/change in ADL's that may No increase risk of falls Signs or symptoms of abuse and/or No neglect since last visit Have you been in the hospital since your No last visit? Has dressing in place as prescribed Yes Has compression in place as prescribed Yes Has offloadiing in place as prescribed N/A Experienced any changes in pain level or No management Left Footwear Regular Shoe Right Footwear Regular Shoe Pain Scale: 0-10 Numeric Is Patient Pain Free? Yes - Nurse 1 - General Ulcer Measurement Start: 01/04/24 08:44 Freq: Status: Active Protocol: Activity Type Activity Date Activity User E-sign Co-sign Detail Recorded Client Recorded Date Recorded By Document 01/04/24 08:44 [facility] 10.10.25.7 01/04/24 08:47 BM 01/04/24 08:44 Wound Center Nurse 1 #3 L Calf cluster -Combined with other wound No -Current Size (cm) - Length 5.7 -Current Size (cm) - Width 3.6 -Current Size (cm) - Depth 0.1 -Total Square Cm 20.52 -Date of Last Picture (Recall this 01/04/24 field) -Granulation Amt Large (67-100%) -Granulation Quality Red -Texture (Karen-wound Skin Appearance) Assessed, Scarring -Moisture (Karen-wound Skin Appearance) Assessed -Color (Karen-wound Skin Appearance) Assessed -Temperature (Karen-wound Skin No Abnormality Appearance) (Pt Warm) -Tenderness on Palpation (Karen-wound No Skin Appearance) -Ulcer Cleansing Rinsed/ Irrigated with Saline -Foul Odor after Cleansing No -Anesthetic Used 5% Lidocaine Gel Left Calf (cm) 40 Left Ankle (cm) 20.8 - Nurse 2 - General Ulcer CM Notes Start: 01/04/24 08:44 Freq: Status: Active Protocol: Activity Type Activity Date Activity User E-sign Co-sign Detail Recorded Client Recorded Date Recorded By Document 01/04/24 08:58 [id number] 01/04/24 09:02 01/04/24 08:58 Wound Center Nurse 2 #3 L Calf cluster -Time 08:59 -Correct Patient Yes -Correct Side, Site, Position Yes -Correct Procedure Yes -Procedure Performed Yes -Type of Procedure Debridement -Clinical Debridement Subcutaneous -Tissue Removed Subcutaneous -Post Debridement (cm) - Length 6 -Post Debridement (cm) - Width 4 -Post Debridement (cm) - Depth 0.1 -Total Square (Post) (cm) 24 -Area of Debridement (cm) - Length 6 -Area of Debridement (cm) - Width 4 -Total Square (Area) (cm) 24 -Tunneling No -Undermining/Tunneling No -Circular Undermining No -Wound/Ulcer Outcome Not Healed -Ulcer Cleansing Rinsed/ Irrigated with Saline -Foul Odor after Cleansing No -Bioengineered Tissue No -Bleeding Controlled with Pressure -Treatment Response Procedure Tolerated Well -Offloading No -Debridement - Subq, 1st 20sq cm Yes -Debridement, SubQ, ea addt'l 20sq cm 1 or part thereof Pain Scale: 0-10 Numeric Is Patient Pain Free? Yes - Nurse 3 - General Ulcer D/C NN Start: 01/04/24 08:44 Freq: Status: Active Protocol: Activity Type Activity Date Activity User E-sign Co-sign Detail Recorded Client Recorded Date Recorded By Document 01/04/24 09:10 [facility] 10.10.25.7 01/04/24 09:11 [facility] 01/04/24 09:10 Wound Care Center Nurse 3 #3 L Calf cluster -Ulcer Cleansing Rinsed/ Irrigated with Saline -Foul Odor after Cleansing No -Primary Dressing Applied Mepilex Border -Other Dressing fibracol -Mepilex Border 3 Left -Other reapplied pts own double layer size E tubi Treatment Response Procedure Tolerated Well Pain Scale: 0-10 Numeric Is Patient Pain Free? 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 Wound care - Fibrocol + covered with Excell SAP or silicone border gauze every other day. May moisten the Fibrocol if needed. Wash the ulcer with soap and water at the time of the dressing change. Compression - Double tubigrip. Stressed importance of keeping legs elevated when sitting to help prevent edema. Encouraged protein supplementation to help with wound healing. She has been using Daniel. Follow-up one week.
[2024-01-11 09:42] VITALS: BP 159/87; PULSE 90; RESP 18; TEMP 36.2; BMI 27.6
--- NOTE | 2024-01-11 12:42 | PCM.WC.PN ---
History of Present Illness Date of Service: 01/11/24 Chief Complaint: Left lateral leg ulcer that was initially caused by trauma from bumping leg on edge of car. History of Wound: Patient is 83 year female who presents for further evaluation of an ulcer on her left posterolateral leg. She initially bumped her leg on her car frame when removing something from her car on 05/22/24 and needed sutures to her left anterior leg. She then developed increased pain, swelling and a hematoma to her left leg and was seen in the ED very early on 05/27/23. She is on chronic anticoagulation for Afib, her INR was 5.3 at that time. She was discharged home with follow up with her PCP later that day. She returned to the ED via squad later that day after she experienced a large amount of bleeding. The hematoma was evacuated in the ED under sedation. She was admitted to the hospital and she required transfusion of 1 unit PRBC when her hemoglobin dropped from 11 to 6.9. She was transferred to [facility] for a little while. She comes in today for further evaluation of her left posterolateral leg ulcer from a hematoma. She states she is doing well at home. Her daughter is helping her with her dressing changes. Wound care - Fibracol. 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 Wound cultures obtained 07/27/23 which were positive for Pseudomonas aeruginosa, MRSA, Corynebacterium striatum, and Anaerobic cocci. She was placed on Flagyl and finished them. She was placed on Levaquin and is tolerating them thus far. She was placed on Linezolid and stated she had some visual problems and stopped the antibiotic. Stopped the Clindamycin due severe heart burn. Re-cultured the ulcer on 08/25/23 and it was positive for Acinetobacter baumannii. Started her on Augmentin, which she has tolerated in the past. Today she denies fever, chills, nausea or vomiting. Her appetite is good. Patient was interested in advanced skin substitute grafts to help the ulcer to heal. She has had 10 applications of Theraskin. Progress of Wound: Left lateral leg ulcer cluster. It is beefy pink, it appears smaller. She denies any complaints. Objective Data Objective Data Vital Signs: Vital Signs Temp Pulse Resp BP O2 Del Method 97.2 F L 90 18 159/87 H Room Air 01/11/24 09:42 01/11/24 09:42 01/11/24 09:42 01/11/24 09:42 01/04/24 08:44 Oxygen Delivery Method Room Air Weight: 170 lb 12.573 oz Body Mass Index (BMI) 27.6 Charges/Coding Procedures Integumentary 111xxx-113xx: 95905 Humera subq tissue 20 sq cm/< Debridement Note Debridement Note Wound debrided: #3 - Left posterolateral leg ulcer cluster Laterality: Left Wound Grade/Stage: Grade III Type of Debridement: Excisional debridement Anesthesia Used: 5% Lidocaine Gel Depth: Down to and including healthy tissue and in the subcutaneous layer Percentage of wound debrided: 100 Instrument Used: 5mm curette Tissue Removed: subcutaneous tissue, senescent cells Severity: Fat Layer Exposed Amount of bleeding with debridement: Mild Bleeding Controlled with: Pressure and Compression and gauze Patient tolerated procedure: Patient tolerated procedure well Post-Debridement Measurements and Additional Note: Post-Debridement Measurements/Treatment - Nurse 1 - General Ulcer Assessment Start: 01/04/24 08:44 Freq: Status: Active Protocol: MIKE.[email or web address] Activity Type Activity Date Activity User E-sign Co-sign Detail Recorded Client Recorded Date Recorded By Document 01/04/24 08:44 [facility] 10.10.25.7 01/04/24 08:47 [facility] Document 01/11/24 09:42 DL [id number] 01/11/24 09:48 DL 01/04/24 01/11/24 08:44 09:42 - Today's Visit Information Type of service Follow-up Visit Follow-up Visit (Physician/CAMERA OPERATOR (Physician/CAMERA OPERATOR ) ) Arrival Mode Ambulatory Ambulatory Transfer Assistance None None Patient Identification Verified (Name & Yes Yes ) Patient Requires Transmission-Based No No Precautions Height and Weight Body Mass Index (BMI) 27.6 27.6 BMI Classification Overweight Overweight Vital Signs Temperature (97.8 F-99.1 F) 97.2 F L Temperature Source Temporal Pulse Rate (60-100) 95 90 Pulse Location Monitor Monitor Respiratory Rate (12-18) 16 18 Respiratory rate source Observation Oxygen Delivery Method Room Air Blood Pressure (90/60-120/80) 166/86 H 159/87 H Blood Pressure Mean (mm Hg) 112 111 Source Monitor Monitor Position Sitting Blood Pressure Location Left Arm History Since Last Visit- (Skip if this is Patient's initial visit) Have you changed medications since your No No last visit? Any new allergies or adverse reactions No No Had a fall/change in ADL's that may No No increase risk of falls Signs or symptoms of abuse and/or No No neglect since last visit Have you been in the hospital since your No No last visit? Has dressing in place as prescribed Yes Yes Has compression in place as prescribed Yes Yes Has offloadiing in place as prescribed N/A N/A Experienced any changes in pain level or No No management Left Footwear Regular Shoe Regular Shoe Right Footwear Regular Shoe Regular Shoe Pain Scale: 0-10 Numeric Is Patient Pain Free? Yes Yes WC - Nurse 1 - General Ulcer Measurement Start: 01/04/24 08:44 Freq: Status: Active Protocol: Activity Type Activity Date Activity User E-sign Co-sign Detail Recorded Client Recorded Date Recorded By Document 01/04/24 08:44 BM 10.10.25.7 01/04/24 08:47 BMF Document 01/11/24 09:42 DL [id number] 01/11/24 09:48 DL 01/04/24 01/11/24 08:44 09:42 Wound Center Nurse 1 #3 L Calf cluster -Combined with other wound No -Current Size (cm) - Length 5.7 2.8 -Current Size (cm) - Width 3.6 2.7 -Current Size (cm) - Depth 0.1 0.1 -Total Square Cm 20.52 7.56 -Date of Last Picture (Recall this 01/04/24 field) -Photo Taken Yes -Exudate Amt Medium -Exudate Type Serosanguineous -Wound Margin Distinct, Outline Attached -Granulation Amt Large (67-100%) Medium (34-66%) -Granulation Quality Red Red -Necrosis Amt Medium (34-66%) -Necrotic Tissue Type Adherent Slough -Structure Exposed N/A -Texture (Karen-wound Skin Appearance) Assessed, Scarring,Rash Scarring -Moisture (Karen-wound Skin Appearance) Assessed Weeping -Color (Karen-wound Skin Appearance) Assessed Erythema -Temperature (Karen-wound Skin No Abnormality No Abnormality Appearance) (Pt Warm) (Pt Warm) -Tenderness on Palpation (Karen-wound No No Skin Appearance) -Ulcer Cleansing Rinsed/ Soap and Water Irrigated with Saline -Foul Odor after Cleansing No No -Anesthetic Used 5% Lidocaine 5% Lidocaine Gel Gel Left Calf (cm) 40 37.8 Left Ankle (cm) 20.8 21 WC - Nurse 2 - General Ulcer CM Notes Start: 01/04/24 08:44 Freq: Status: Active Protocol: Activity Type Activity Date Activity User E-sign Co-sign Detail Recorded Client Recorded Date Recorded By Document 01/04/24 08:58 [id number] 01/04/24 09:02 JF Document 01/11/24 09:55 DL [id number] 01/11/24 09:59 DL 01/04/24 01/11/24 08:58 09:55 Wound Center Nurse 2 #3 L Calf cluster -Time 08:59 09:56 -Correct Patient Yes Yes -Correct Side, Site, Position Yes Yes -Correct Procedure Yes Yes -Procedure Performed Yes Yes -Type of Procedure Debridement Debridement -Clinical Debridement Subcutaneous Subcutaneous -Tissue Removed Subcutaneous Subcutaneous -Post Debridement (cm) - Length 6 4.6 -Post Debridement (cm) - Width 4 3.4 -Post Debridement (cm) - Depth 0.1 0.1 -Total Square (Post) (cm) 24 15.64 -Area of Debridement (cm) - Length 6 4.6 -Area of Debridement (cm) - Width 4 3.4 -Total Square (Area) (cm) 24 15.64 -Tunneling No No -Undermining/Tunneling No No -Circular Undermining No No -Wound/Ulcer Outcome Not Healed Not Healed -Ulcer Cleansing Rinsed/ Rinsed/ Irrigated with Irrigated with Saline Saline -Foul Odor after Cleansing No No -Bioengineered Tissue No No -Bleeding Controlled with Pressure Pressure -Treatment Response Procedure Procedure Tolerated Well Tolerated Well -Offloading No No -Debridement - Subq, 1st 20sq cm Yes Yes -Debridement, SubQ, ea addt'l 20sq cm 1 or part thereof Pain Scale: 0-10 Numeric Is Patient Pain Free? Yes Yes - Nurse 3 - General Ulcer D/C NN Start: 01/04/24 08:44 Freq: Status: Active Protocol: Activity Type Activity Date Activity User E-sign Co-sign Detail Recorded Client Recorded Date Recorded By Document 01/04/24 09:10 BMF 10.10.25.7 01/04/24 09:11 BMF Document 01/11/24 10:13 DL [id number] 01/11/24 10:14 DL 01/04/24 01/11/24 09:10 10:13 Wound Care Center Nurse 3 #3 L Calf cluster -Ulcer Cleansing Rinsed/ Rinsed/ Irrigated with Irrigated with Saline Saline -Foul Odor after Cleansing No No -Primary Dressing Applied Mepilex Border -Other Dressing fibracol fibracol -Other Covering Mepilex -Mepilex Border 3 Left -Other reapplied pts tubigrip own double layer size E tubi Treatment Response Procedure Procedure Tolerated Well Tolerated Well Pain Scale: 0-10 Numeric Is Patient Pain Free? 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: CODE(S): L97.902 - Non-pressure chronic ulcer of unspecified part of unspecified lower leg with fat layer exposed QUALIFIERS: Laterality: left Qualified Code(s): L97.922 - Non-pressure chronic ulcer of unspecified part of left lower leg with fat layer exposed (2) Contusion of left lower leg, sequela: CODE(S): S80.12XS - Contusion of left lower leg, sequela (3) Hematoma: CODE(S): T14.8XXA - Other injury of unspecified body region, initial encounter (4) Chronic anticoagulation: CODE(S): Z79.01 - intermodal dispatcher (current) use of 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s PLAN: Plan She has had 10 applications of Theraskin. Wound care - Fibrocol + covered with Excell SAP or silicone border gauze every other day. May moisten the Fibrocol if needed. Wash the ulcer with soap and water at the time of the dressing change. Compression - Double tubigrip. Stressed importance of keeping legs elevated when sitting to help prevent edema. Encouraged protein supplementation to help with wound healing. She has been using Daniel. Follow-up one week.
--- NOTE | 2024-01-14 09:24 | WC ---
PHOTO 01/11/24 LEFT CALF
--- NOTE | 2024-01-14 10:53 | WC ---
PHOTO 01/04/24 LEFT CALF CLUSTER
[2024-01-18 09:31] VITALS: BP 151/92; PULSE 86; RESP 16; TEMP 36; BMI 27.6
--- NOTE | 2024-01-18 10:23 | PCM.HBO.PN ---
History of Present Illness Date of Service: 01/18/24 Chief Complaint: Left lateral leg ulcer that was initially caused by trauma from bumping leg on edge of car. History of Wound: Patient is 83 year female who presents for further evaluation of an ulcer on her left posterolateral leg. She initially bumped her leg on her car frame when removing something from her car on 05/22/24 and needed sutures to her left anterior leg. She then developed increased pain, swelling and a hematoma to her left leg and was seen in the ED very early on 05/27/23. She is on chronic anticoagulation for Afib, her INR was 5.3 at that time. She was discharged home with follow up with her PCP later that day. She returned to the ED via squad later that day after she experienced a large amount of bleeding. The hematoma was evacuated in the ED under sedation. She was admitted to the hospital and she required transfusion of 1 unit PRBC when her hemoglobin dropped from 11 to 6.9. She was transferred to [facility] for a little while. She comes in today for further evaluation of her left posterolateral leg ulcer from a hematoma. She states she is doing well at home. Her daughter is helping her with her dressing changes. Wound care - Fibracol. 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 Wound cultures obtained 07/27/23 which were positive for Pseudomonas aeruginosa, MRSA, Corynebacterium striatum, and Anaerobic cocci. She was placed on Flagyl and finished them. She was placed on Levaquin and is tolerating them thus far. She was placed on Linezolid and stated she had some visual problems and stopped the antibiotic. Stopped the Clindamycin due severe heart burn. Re-cultured the ulcer on 08/25/23 and it was positive for Acinetobacter baumannii. Started her on Augmentin, which she has tolerated in the past. Today she denies fever, chills, nausea or vomiting. Her appetite is good. Patient was interested in advanced skin substitute grafts to help the ulcer to heal. She has had 10 applications of Theraskin. Progress of Wound: Left lateral leg ulcer cluster. It is beefy pink, it appears smaller. She denies any complaints. Objective Data Objective Data Vital Signs: Vital Signs Temp Pulse Resp BP O2 Del Method 96.8 F L 86 16 151/92 H Room Air 01/18/24 09:31 01/18/24 09:31 01/18/24 09:31 01/18/24 09:31 01/18/24 09:31 Oxygen Delivery Method Room Air Weight: 170 lb 12.573 oz Body Mass Index (BMI) 27.6 Exam Nursing Assessment and Debridement Post-Debridement Measurements and Additional Note: Post-Debridement Measurements/Treatment - Nurse 1 - General Ulcer Assessment Start: 01/04/24 08:44 Freq: Status: Active Protocol: LAWRENCE Activity Type Activity Date Activity User E-sign Co-sign Detail Recorded Client Recorded Date Recorded By Document 01/18/24 09:31 [facility] [id number] 01/18/24 09:38 [facility] 01/18/24 09:31 WC - Today's Visit Information Type of service Follow-up Visit (Physician/IMPORT COORDINATION AND PRODUCTION HEAD ) Arrival Mode Cane Transfer Assistance None Patient Identification Verified (Name & Yes ) Patient Requires Transmission-Based No Precautions Height and Weight Body Mass Index (BMI) 27.6 BMI Classification Overweight Vital Signs Temperature (97.8 F-99.1 F) 96.8 F L Temperature Source Temporal Pulse Rate (60-100) 86 Pulse Location Monitor Respiratory Rate (12-18) 16 Respiratory rate source Observation Oxygen Delivery Method Room Air Blood Pressure (90/60-120/80) 151/92 H Blood Pressure Mean (mm Hg) 111 Source Monitor Position Sitting Blood Pressure Location Right Arm History Since Last Visit- (Skip if this is Patient's initial visit) Have you changed medications since your No last visit? Any new allergies or adverse reactions No Had a fall/change in ADL's that may No increase risk of falls Signs or symptoms of abuse and/or No neglect since last visit Have you been in the hospital since your No last visit? Has dressing in place as prescribed Yes Has compression in place as prescribed Yes Has offloadiing in place as prescribed N/A Experienced any changes in pain level or No management Left Footwear Regular Shoe Right Footwear Regular Shoe Pain Scale: 0-10 Numeric Is Patient Pain Free? Yes - Nurse 1 - General Ulcer Measurement Start: 01/04/24 08:44 Freq: Status: Active Protocol: Activity Type Activity Date Activity User E-sign Co-sign Detail Recorded Client Recorded Date Recorded By Document 01/18/24 09:31 [facility] [id number] 01/18/24 09:38 [facility] 01/18/24 09:31 Wound Center Nurse 1 #3 L Calf cluster -Combined with other wound No -Current Size (cm) - Length 4.2 -Current Size (cm) - Width 2.4 -Current Size (cm) - Depth 0.1 -Total Square Cm 10.08 -Epithelialization None Present -Tunneling No -Undermining/Tunneling No -Circular Undermining No -Exudate Amt Medium -Exudate Type Serosanguineous -Wound Margin Distinct, Outline Attached -Granulation Amt Medium (34-66%) -Granulation Quality Pale,Red -Slough/Fibrin Yes -Necrosis Amt Medium (34-66%) -Necrotic Tissue Type Adherent Slough -Texture (Karen-wound Skin Appearance) Assessed, Scarring -Moisture (Karen-wound Skin Appearance) Assessed,Dry/ Scaly -Color (Karen-wound Skin Appearance) Assessed, Erythema -Temperature (Karen-wound Skin No Abnormality Appearance) (Pt Warm) -Tenderness on Palpation (Karen-wound No Skin Appearance) -Ulcer Cleansing Rinsed/ Irrigated with Saline -Foul Odor after Cleansing No -Anesthetic Used 5% Lidocaine Gel Left Calf (cm) 37.6 Left Ankle (cm) 20.8 WC - Nurse 2 - General Ulcer CM Notes Start: 01/04/24 08:44 Freq: Status: Active Protocol: Activity Type Activity Date Activity User E-sign Co-sign Detail Recorded Client Recorded Date Recorded By Document 01/18/24 09:50 [id number] 01/18/24 09:52 01/18/24 09:50 Wound Center Nurse 2 #3 L Calf cluster -Time 09:51 -Correct Patient Yes -Correct Side, Site, Position Yes -Correct Procedure Yes -Procedure Performed Yes -Type of Procedure Debridement -Clinical Debridement Subcutaneous -Tissue Removed Subcutaneous -Post Debridement (cm) - Length 4.5 -Post Debridement (cm) - Width 1.9 -Post Debridement (cm) - Depth 0.1 -Total Square (Post) (cm) 8.55 -Area of Debridement (cm) - Length 4.5 -Area of Debridement (cm) - Width 1.9 -Total Square (Area) (cm) 8.55 -Tunneling No -Undermining/Tunneling No -Circular Undermining No -Wound/Ulcer Outcome Not Healed -Ulcer Cleansing Rinsed/ Irrigated with Saline -Foul Odor after Cleansing No -Bioengineered Tissue No -Bleeding Controlled with Pressure -Treatment Response Procedure Tolerated Well -Offloading No -Debridement - Subq, 1st 20sq cm Yes Pain Scale: 0-10 Numeric Is Patient Pain Free? Yes WC - Nurse 3 - General Ulcer D/C NN Start: 01/04/24 08:44 Freq: Status: Active Protocol: Activity Type Activity Date Activity User E-sign Co-sign Detail Recorded Client Recorded Date Recorded By Document 01/18/24 10:10 DL [id number] 01/18/24 10:11 DL 01/18/24 10:10 Wound Care Center Nurse 3 #3 L Calf cluster -Ulcer Cleansing Rinsed/ Irrigated with Saline -Foul Odor after Cleansing No -Other Dressing fibracol/ mepilex -Other Covering tubigrip Treatment Response Procedure Tolerated Well Pain Scale: 0-10 Numeric Is Patient Pain Free? Yes WC - Visit Discharge Discharge Condition Stable Ambulatory Status Ambulatory
--- NOTE | 2024-01-18 10:50 | PCM.WC.PN ---
History of Present Illness Date of Service: 01/18/24 Chief Complaint: Left lateral leg ulcer that was initially caused by trauma from bumping leg on edge of car. History of Wound: Patient is 83 year female who presents for further evaluation of an ulcer on her left posterolateral leg. She initially bumped her leg on her car frame when removing something from her car on 05/22/24 and needed sutures to her left anterior leg. She then developed increased pain, swelling and a hematoma to her left leg and was seen in the ED very early on 05/27/23. She is on chronic anticoagulation for Afib, her INR was 5.3 at that time. She was discharged home with follow up with her PCP later that day. She returned to the ED via squad later that day after she experienced a large amount of bleeding. The hematoma was evacuated in the ED under sedation. She was admitted to the hospital and she required transfusion of 1 unit PRBC when her hemoglobin dropped from 11 to 6.9. She was transferred to [facility] for a little while. She comes in today for further evaluation of her left posterolateral leg ulcer from a hematoma. She states she is doing well at home. Her daughter is helping her with her dressing changes. Wound care - Fibracol. 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 Wound cultures obtained 07/27/23 which were positive for Pseudomonas aeruginosa, MRSA, Corynebacterium striatum, and Anaerobic cocci. She was placed on Flagyl and finished them. She was placed on Levaquin and is tolerating them thus far. She was placed on Linezolid and stated she had some visual problems and stopped the antibiotic. Stopped the Clindamycin due severe heart burn. Re-cultured the ulcer on 08/25/23 and it was positive for Acinetobacter baumannii. Started her on Augmentin, which she has tolerated in the past. Today she denies fever, chills, nausea or vomiting. Her appetite is good. Patient was interested in advanced skin substitute grafts to help the ulcer to heal. She has had 10 applications of Theraskin. Progress of Wound: Left lateral leg ulcer cluster is smaller and now is a single ulcer. It is beefy pink. She denies any complaints. Objective Data Objective Data Vital Signs: Vital Signs Temp Pulse Resp BP O2 Del Method 96.8 F L 86 16 151/92 H Room Air 01/18/24 09:31 01/18/24 09:31 01/18/24 09:31 01/18/24 09:31 01/18/24 09:31 Oxygen Delivery Method Room Air Weight: 170 lb 12.573 oz Body Mass Index (BMI) 27.6 Charges/Coding Procedures Integumentary [id number]: [id number] Humera subq tissue 20 sq cm/< Debridement Note Debridement Note Wound debrided: #3 - Left posterolateral leg ulcer cluster Laterality: Left Wound Grade/Stage: Grade III Type of Debridement: Excisional debridement Anesthesia Used: 5% Lidocaine Gel Depth: Down to and including healthy tissue and in the subcutaneous layer Percentage of wound debrided: 100 Instrument Used: 5mm curette Tissue Removed: subcutaneous tissue, senescent cells Severity: Fat Layer Exposed Amount of bleeding with debridement: Mild Bleeding Controlled with: Pressure and Compression and gauze Patient tolerated procedure: Patient tolerated procedure well Post-Debridement Measurements and Additional Note: Post-Debridement Measurements/Treatment - Nurse 1 - General Ulcer Assessment Start: 01/04/24 08:44 Freq: Status: Active Protocol: .SONIA Activity Type Activity Date Activity User E-sign Co-sign Detail Recorded Client Recorded Date Recorded By Document 01/04/24 08:44 [facility] [id number] 01/04/24 08:47 [facility] Document 01/11/24 09:42 DL [id number] 01/11/24 09:48 DL Document 01/18/24 09:31 [facility] [id number] 01/18/24 09:38 [facility] 01/04/24 01/11/24 01/18/24 08:44 09:42 09:31 - Today's Visit Information Type of service Follow-up Visit Follow-up Visit Follow-up Visit (Physician/FISH FRYER (Physician/FISH FRYER (Physician/FISH FRYER ) ) ) Arrival Mode Ambulatory Ambulatory Cane Transfer Assistance None None None Patient Identification Verified (Name & Yes Yes Yes ) Patient Requires Transmission-Based No No No Precautions Height and Weight Body Mass Index (BMI) 27.6 27.6 27.6 BMI Classification Overweight Overweight Overweight Vital Signs Temperature (97.8 F-99.1 F) 97.2 F L 96.8 F L Temperature Source Temporal Temporal Pulse Rate (60-100) 95 90 86 Pulse Location Monitor Monitor Monitor Respiratory Rate (12-18) 16 18 16 Respiratory rate source Observation Observation Oxygen Delivery Method Room Air Room Air Blood Pressure (90/60-120/80) 166/86 H 159/87 H 151/92 H Blood Pressure Mean (mm Hg) 112 111 111 Source Monitor Monitor Monitor Position Sitting Sitting Blood Pressure Location Left Arm Right Arm History Since Last Visit- (Skip if this is Patient's initial visit) Have you changed medications since your No No No last visit? Any new allergies or adverse reactions No No No Had a fall/change in ADL's that may No No No increase risk of falls Signs or symptoms of abuse and/or No No No neglect since last visit Have you been in the hospital since your No No No last visit? Has dressing in place as prescribed Yes Yes Yes Has compression in place as prescribed Yes Yes Yes Has offloadiing in place as prescribed N/A N/A N/A Experienced any changes in pain level or No No No management Left Footwear Regular Shoe Regular Shoe Regular Shoe Right Footwear Regular Shoe Regular Shoe Regular Shoe Pain Scale: 0-10 Numeric Is Patient Pain Free? Yes Yes Yes WC - Nurse 1 - General Ulcer Measurement Start: 01/04/24 08:44 Freq: Status: Active Protocol: Activity Type Activity Date Activity User E-sign Co-sign Detail Recorded Client Recorded Date Recorded By Document 01/04/24 08:44 [facility] [id number] 01/04/24 08:47 BM[facility] Document 01/11/24 09:42 DL [id number] 01/11/24 09:48 DL Document 01/18/24 09:31 BMF [id number] 01/18/24 09:38 BMF 01/04/24 01/11/24 01/18/24 08:44 09:42 09:31 Wound Center Nurse 1 #3 L Calf cluster -Combined with other wound No No -Current Size (cm) - Length 5.7 2.8 4.2 -Current Size (cm) - Width 3.6 2.7 2.4 -Current Size (cm) - Depth 0.1 0.1 0.1 -Total Square Cm 20.52 7.56 10.08 -Date of Last Picture (Recall this 01/04/24 field) -Photo Taken Yes -Epithelialization None Present -Tunneling No -Undermining/Tunneling No -Circular Undermining No -Exudate Amt Medium Medium -Exudate Type Serosanguineous Serosanguineous -Wound Margin Distinct, Distinct, Outline Outline Attached Attached -Granulation Amt Large (67-100%) Medium (34-66%) Medium (34-66%) -Granulation Quality Red Red Pale,Red -Slough/Fibrin Yes -Necrosis Amt Medium (34-66%) Medium (34-66%) -Necrotic Tissue Type Adherent Slough Adherent Slough -Structure Exposed N/A -Texture (Karen-wound Skin Appearance) Assessed, Scarring,Rash Assessed, Scarring Scarring -Moisture (Karen-wound Skin Appearance) Assessed Weeping Assessed,Dry/ Scaly -Color (Karen-wound Skin Appearance) Assessed Erythema Assessed, Erythema -Temperature (Karen-wound Skin No Abnormality No Abnormality No Abnormality Appearance) (Pt Warm) (Pt Warm) (Pt Warm) -Tenderness on Palpation (Karen-wound No No No Skin Appearance) -Ulcer Cleansing Rinsed/ Soap and Water Rinsed/ Irrigated with Irrigated with Saline Saline -Foul Odor after Cleansing No No No -Anesthetic Used 5% Lidocaine 5% Lidocaine 5% Lidocaine Gel Gel Gel Left Calf (cm) 40 37.8 37.6 Left Ankle (cm) 20.8 21 20.8 WC - Nurse 2 - General Ulcer CM Notes Start: 01/04/24 08:44 Freq: Status: Active Protocol: Activity Type Activity Date Activity User E-sign Co-sign Detail Recorded Client Recorded Date Recorded By Document 01/04/24 08:58 [id number] 01/04/24 09:02 JF Document 01/11/24 09:55 DL [id number] 01/11/24 09:59 DL Document 01/18/24 09:50 JF [id number] 01/18/24 09:52 01/04/24 01/11/24 01/18/24 08:58 09:55 09:50 Wound Center Nurse 2 #3 L Calf cluster -Time 08:59 09:56 09:51 -Correct Patient Yes Yes Yes -Correct Side, Site, Position Yes Yes Yes -Correct Procedure Yes Yes Yes -Procedure Performed Yes Yes Yes -Type of Procedure Debridement Debridement Debridement -Clinical Debridement Subcutaneous Subcutaneous Subcutaneous -Tissue Removed Subcutaneous Subcutaneous Subcutaneous -Post Debridement (cm) - Length 6 4.6 4.5 -Post Debridement (cm) - Width 4 3.4 1.9 -Post Debridement (cm) - Depth 0.1 0.1 0.1 -Total Square (Post) (cm) 24 15.64 8.55 -Area of Debridement (cm) - Length 6 4.6 4.5 -Area of Debridement (cm) - Width 4 3.4 1.9 -Total Square (Area) (cm) 24 15.64 8.55 -Tunneling No No No -Undermining/Tunneling No No No -Circular Undermining No No No -Wound/Ulcer Outcome Not Healed Not Healed Not Healed -Ulcer Cleansing Rinsed/ Rinsed/ Rinsed/ Irrigated with Irrigated with Irrigated with Saline Saline Saline -Foul Odor after Cleansing No No No -Bioengineered Tissue No No No -Bleeding Controlled with Pressure Pressure Pressure -Treatment Response Procedure Procedure Procedure Tolerated Well Tolerated Well Tolerated Well -Offloading No No No -Debridement - Subq, 1st 20sq cm Yes Yes Yes -Debridement, SubQ, ea addt'l 20sq cm 1 or part thereof Pain Scale: 0-10 Numeric Is Patient Pain Free? Yes Yes Yes WC - Nurse 3 - General Ulcer D/C NN Start: 01/04/24 08:44 Freq: Status: Active Protocol: Activity Type Activity Date Activity User E-sign Co-sign Detail Recorded Client Recorded Date Recorded By Document 01/04/24 09:10 [facility] 10.10.25.7 01/04/24 09:11 BM Document 01/11/24 10:13 DL [id number] 01/11/24 10:14 DL Document 01/18/24 10:10 DL [id number] 01/18/24 10:11 DL 01/04/24 01/11/24 01/18/24 09:10 10:13 10:10 Wound Care Center Nurse 3 #3 L Calf cluster -Ulcer Cleansing Rinsed/ Rinsed/ Rinsed/ Irrigated with Irrigated with Irrigated with Saline Saline Saline -Foul Odor after Cleansing No No No -Primary Dressing Applied Mepilex Border -Other Dressing fibracol fibracol fibracol/ mepilex -Other Covering Mepilex tubigrip -Mepilex Border 3 Left -Other reapplied pts tubigrip own double layer size E tubi Treatment Response Procedure Procedure Procedure Tolerated Well Tolerated Well Tolerated Well Pain Scale: 0-10 Numeric Is Patient Pain Free? 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: CODE(S): L97.902 - Non-pressure chronic ulcer of unspecified part of unspecified lower leg with fat layer exposed QUALIFIERS: Laterality: left Qualified Code(s): L97.922 - Non-pressure chronic ulcer of unspecified part of left lower leg with fat layer exposed (2) Contusion of left lower leg, sequela: CODE(S): S80.12XS - Contusion of left lower leg, sequela (3) Hematoma: CODE(S): T14.8XXA - Other injury of unspecified body region, initial encounter (4) Chronic anticoagulation: CODE(S): Z79.01 - salvage determiner (current) use of 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s PLAN: Plan She has had 10 applications of Theraskin. Wound care - Fibrocol + covered with Excell SAP or silicone border gauze every other day. May moisten the Fibrocol if needed. Wash the ulcer with soap and water at the time of the dressing change. Compression - Double tubigrip. Stressed importance of keeping legs elevated when sitting to help prevent edema. Encouraged protein supplementation to help with wound healing. She has been using Daniel. Follow-up 2 weeks, due to the holiday next week.
== END 2024-01-23 23:59 | disposition home or self-care (01) ==
LOC: WC 09:30
PROVIDERS: PCP Family Medicine Geriatric Medicine; Referring Provider Family Medicine Geriatric Medicine; Visit Provider Nurse Practitioner Family
DX: L97.922 Non-pressure chronic ulcer of unspecified part of left lower leg with fat layer exposed (principal); I48.91 Unspecified atrial fibrillation; S80.12XS Contusion of left lower leg, sequela; T14.8XXA Other injury of unspecified body region, initial encounter; Z79.01 Long term (current) use of 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s; Z95.0 Presence of cardiac pacemaker; I10 Essential (primary) hypertension; E78.2 Mixed hyperlipidemia; Z86.718 Personal history of other venous thrombosis and embolism
CPT/HCPCS: 11042; 11045

== ENCOUNTER 2024-02-22 09:30 | Outpatient (RCR) | payer MEDICARE, OTHER, SELFPAY ==
[2024-01-24 00:50] VITALS: BP 142/70; PULSE 82; RESP 18; TEMP 36.7; BMI 27.6
[2024-02-01 09:34] VITALS: BP 149/88; PULSE 89; RESP 18; TEMP 36.3; BMI 27.6
[2024-02-08 09:35] VITALS: BP 138/78; PULSE 91; TEMP 36.3; BMI 27.6
[2024-02-22 09:36] VITALS: BP 146/75; PULSE 94; RESP 18; TEMP 36.5; BMI 27.6
== END 2024-02-22 23:59 | disposition home or self-care (01) ==
LOC: WC 09:30
PROVIDERS: PCP Family Medicine Geriatric Medicine; Referring Provider Family Medicine Geriatric Medicine; Visit Provider Nurse Practitioner Family
DX: L97.922 Non-pressure chronic ulcer of unspecified part of left lower leg with fat layer exposed (principal); S80.12XS Contusion of left lower leg, sequela; Z79.01 Long term (current) use of 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s; T14.8XXA Other injury of unspecified body region, initial encounter
CPT/HCPCS: 11042

== ENCOUNTER → 2024-02-23 | Outpatient (CLI) | payer MEDICARE, OTHER, SELFPAY ==
--- NOTE | 2024-02-23 14:07 | ECHOD_ITS ---
Reason For Study: MURMUR Procedure This was a 2D Doppler, Color Flow transthoracic echocardiogram. Exam performed in department. Left Ventricle Normal LV size. Left ventricular systolic function is normal. The left ventricular ejection fraction is 55 %. No regional wall motion abnormalities noted. Right Ventricle Normal RV size. ICD or pacer leads identified within the right ventricle. Normal systolic function. Atria The left atrium is moderately enlarged. The right atrium is mildly enlarged. Mitral Valve Bileaflet diffuse mitral valve thickening. Moderate (2+) eccentric mitral valve insufficiency. Tricuspid Valve Normal tricuspid valve. Moderate (2+) tricuspid valve insufficiency. Pulmonary artery systolic pressure is 55 mmHg. Mild pulmonary hypertension. Aortic Valve Trisinus/trileaflet aortic valve. Mild focal aortic valve calcification. Pulmonic Valve Normal pulmonic valve. Great Vessels Mildly dilated aortic root. The pulmonary artery is normal size. Inferior vena cava collapse with respiration. Pericardium/Pleural No pericardial effusion. MMode/2D Measurements & Calculations LVIDd: 5.5 cm IVSd: 1.1 cm Ao root diam: 4.1 cm LVIDs: 4.1 cm LVPWd: 1.1 cm RVDd: 3.2 cm FS: 25.9 % LAV(MOD-bp): 116.5 ml LVAd ap4: 26.2 cm2 LVAd ap2: 22.8 cm2 LAV(MOD-bp) Indexed: 63.2 ml/m2 LVLd ap4: 7.7 cm LVLd ap2: 7.3 cm LAV(MOD-sp2): 107.2 ml EDV(MOD-sp4): 75.2 ml EDV(MOD-sp2): 63.3 ml LAV(MOD-sp4): 128.8 ml EDV(sp4-el): 75.8 ml EDV(sp2-el): 60.7 ml LVAs ap4: 15.3 cm2 LVAs ap2: 14.2 cm2 LVLs ap4: 6.2 cm LVLs ap2: 6.4 cm ESV(MOD-sp4): 33.8 ml ESV(MOD-sp2): 30.4 ml ESV(sp4-el): 32.2 ml ESV(sp2-el): 26.6 ml EF(MOD-sp4): 55.1 % EF(MOD-sp2): 52.0 % EF(sp4-el): 57.6 % SV(MOD-sp4): 41.5 ml SV(MOD-sp2): 33.0 ml SV(sp4-el): 43.6 ml LA dimension(2D): 5.1 cm LA A4 area: 32.9 cm2 RA A4 area: 26.9 cm2 TAPSE: 2.5 cm Doppler Measurements & Calculations MV E max juliette: 90.2 cm/sec Ao V2 max: 145.3 cm/sec AI max juliette: 419.8 cm/sec Ao max P.4 mmHg AI max P.5 mmHg Ao V2 mean: 98.4 cm/sec AI dec slope: 231.0 cm/sec2 Ao mean P.5 mmHg AI P1/2t: 532.3 msec Ao V2 VTI: 27.8 cm AV (velocity ratio): 0.64 LV V1 max: 85.6 cm/sec MR max juliette: 580.7 cm/sec PA V2 max: 107.0 cm/sec LV V1 max P.9 mmHg MR max P.9 mmHg PA V2 mean: 70.8 cm/sec LV V1 mean P.5 mmHg MR mean juliette: 483.0 cm/sec LV V1 mean: 57.3 cm/sec MR mean P.4 mmHg LV V1 VTI: 17.7 cm MR VTI: 200.4 cm TR max juliette: 356.4 cm/sec TR max P.8 mmHg ECHO/Echo Complete Interpretation Summary Normal LV size. Left ventricular systolic function is normal. The left ventricular ejection fraction is 55 %. The left atrium is moderately enlarged. Pulmonary artery systolic pressure is 55 mmHg. Mild pulmonary hypertension. Ordering Physician: Wilfredo Perry Referring Physician: Rikki Javier Chi Performed By: Kianna Smiley RDCS, RVT
== END | disposition home or self-care (01) ==
LOC: CVS 14:06
PROVIDERS: PCP Family Medicine Geriatric Medicine; Referring Provider Internal Medicine Cardiovascular Disease; Visit Provider Internal Medicine Cardiovascular Disease
DX: I38 Endocarditis, valve unspecified (principal)
CPT/HCPCS: 93306

== ENCOUNTER 2024-03-14 10:00 | Outpatient (RCR) | payer MEDICARE, OTHER, SELFPAY ==
[2024-02-23 00:21] VITALS: BP 142/70; PULSE 82; RESP 18; TEMP 36.7; BMI 27.6
[2024-02-29 10:06] VITALS: BP 152/87; PULSE 91; RESP 18; TEMP 35.8; BMI 27.6
--- NOTE | 2024-02-29 11:56 | PN.PCM_ITS ---
History of Present Illness Date of Service: 02/29/24 Chief Complaint: Left lateral leg ulcer that was initially caused by trauma from bumping leg on edge of car. History of Wound: Patient is 83 year female who presents for further evaluation of an ulcer on her left posterolateral leg. She initially bumped her leg on her car frame when removing something from her car on 05/22/24 and needed sutures to her left anterior leg. She then developed increased pain, swelling and a hematoma to her left leg and was seen in the ED very early on 05/27/23. She is on chronic anticoagulation for Afib, her INR was 5.3 at that time. She was discharged home with follow up with her PCP later that day. She returned to the ED via squad later that day after she experienced a large amount of bleeding. The hematoma was evacuated in the ED under sedation. She was admitted to the hospital and she required transfusion of 1 unit PRBC when her hemoglobin dropped from 11 to 6.9. She was transferred to [facility] for a little while. 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 She states she is doing well at home. Her daughter is helping her with her dressing changes. Wound care - Makenzie. She has a history of Afib, jail coagulation, mitral valve regurgitation, cardiac ablation, cardiac pace maker, DVT, HTN, hyperlipidemia, rheumatoid arthritis, cataract removal, and multiple wounds in the past. Wound cultures obtained 07/27/23 which were positive for Pseudomonas aeruginosa, MRSA, Corynebacterium striatum, and Anaerobic cocci. She was placed on Flagyl and finished them. She was placed on Levaquin and is tolerating them thus far. She was placed on Linezolid and stated she had some visual problems and stopped the antibiotic. Stopped the Clindamycin due severe heart burn. Re-cultured the ulcer on 08/25/23 and it was positive for Acinetobacter baumannii. Started her on Augmentin, which she has tolerated in the past. Today she denies fever, chills, nausea or vomiting. Her appetite is good. Patient was interested in advanced skin substitute grafts to help the ulcer to heal. She has had 10 applications of Theraskin. Progress of Wound: Left lateral leg ulcer is stable today. It is beefy pink, there is some curling on her edges. Objective Data Objective Data Vital Signs: Vital Signs Temp Pulse Resp BP O2 Del Method 96.5 F L 91 18 152/87 H Room Air 02/29/24 10:06 02/29/24 10:06 02/29/24 10:06 02/29/24 10:06 02/29/24 10:06 Oxygen Delivery Method Room Air Weight: 170 lb 12.573 oz Body Mass Index (BMI) 27.6 Charges/Coding Procedures Integumentary 111xxx-113xx: 17812 Humera subq tissue 20 sq cm/< Debridement Note Debridement Note Wound debrided: #3 - Left posterolateral leg ulcer cluster Laterality: Left Wound Grade/Stage: Grade III Type of Debridement: Excisional debridement Anesthesia Used: 5% Lidocaine Gel Depth: Down to and including healthy tissue and in the subcutaneous layer Percentage of wound debrided: 100 Instrument Used: 5mm curette Tissue Removed: subcutaneous tissue, senescent cells, curving edges Severity: Fat Layer Exposed Amount of bleeding with debridement: Mild Bleeding Controlled with: Pressure and Compression and gauze Patient tolerated procedure: Patient tolerated procedure well Post-Debridement Measurements and Additional Note: Post-Debridement Measurements/Treatment - Nurse 1 - General Ulcer Assessment Start: 02/29/24 10:06 Freq: Status: Active Protocol: LAWRENCE Activity Type Activity Date Activity User E-sign Co-sign Detail Recorded Client Recorded Date Recorded By Document 02/29/24 10:06 BARBARA [id number] 02/29/24 10:14 BARBARA 02/29/24 10:06 - Today's Visit Information Type of service Follow-up Visit (Physician/WEB APPLICATION DEV SPECIALIST ) Arrival Mode Ambulatory Patient Identification Verified (Name & Yes ) Height and Weight Body Mass Index (BMI) 27.6 BMI Classification Overweight Vital Signs Temperature (97.8 F-99.1 F) 96.5 F L Temperature Source Temporal Pulse Rate (60-100) 91 Pulse Location Monitor Respiratory Rate (12-18) 18 Respiratory rate source Observation Oxygen Delivery Method Room Air Blood Pressure (90/60-120/80) 152/87 H Blood Pressure Mean (mm Hg) 108 Source Monitor Position Semi-Fowlers Blood Pressure Location Left Arm History Since Last Visit- (Skip if this is Patient's initial visit) Have you changed medications since your No last visit? Any new allergies or adverse reactions No Had a fall/change in ADL's that may No increase risk of falls Signs or symptoms of abuse and/or No neglect since last visit Have you been in the hospital since your No last visit? Has dressing in place as prescribed Yes Has compression in place as prescribed Yes Has offloadiing in place as prescribed N/A Experienced any changes in pain level or No management Left Footwear Regular Shoe Right Footwear Regular Shoe Pain Scale: 0-10 Numeric Is Patient Pain Free? Yes - Nurse 1 - General Ulcer Measurement Start: 02/29/24 10:06 Freq: Status: Active Protocol: Activity Type Activity Date Activity User E-sign Co-sign Detail Recorded Client Recorded Date Recorded By Document 02/29/24 10:06 BARBARA [id number] 02/29/24 10:14 KW 02/29/24 10:06 Wound Center Nurse 1 #3 L Calf cluster -Current Size (cm) - Length 1.8 -Current Size (cm) - Width 3 -Current Size (cm) - Depth 0.2 -Total Square Cm 5.4 -Date of Last Picture (Recall this 02/29/24 field) -Exudate Amt Small -Exudate Type Serosanguineous -Wound Margin Distinct, Outline Attached -Granulation Amt Medium (34-66%) -Granulation Quality Red -Necrosis Amt Small (1-33%) -Necrotic Tissue Type Adherent Slough -Texture (Karen-wound Skin Appearance) Assessed -Moisture (Karen-wound Skin Appearance) Assessed -Color (Karen-wound Skin Appearance) Assessed -Temperature (Karen-wound Skin No Abnormality Appearance) (Pt Warm) -Tenderness on Palpation (Karen-wound No Skin Appearance) -Ulcer Cleansing Rinsed/ Irrigated with Saline -Foul Odor after Cleansing No -Anesthetic Used 5% Lidocaine Gel Left Calf (cm) 37.5 Left Ankle (cm) 21 - Nurse 2 - General Ulcer CM Notes Start: 02/29/24 10:06 Freq: Status: Active Protocol: Activity Type Activity Date Activity User E-sign Co-sign Detail Recorded Client Recorded Date Recorded By Document 02/29/24 10:32 JF [id number] 02/29/24 10:35 JF 02/29/24 10:32 Wound Center Nurse 2 #3 L Calf cluster -Time 10:32 -Correct Patient Yes -Correct Side, Site, Position Yes -Correct Procedure Yes -Procedure Performed Yes -Type of Procedure Debridement -Clinical Debridement Subcutaneous -Tissue Removed Subcutaneous -Post Debridement (cm) - Length 3.3 -Post Debridement (cm) - Width 1.7 -Post Debridement (cm) - Depth 0.2 -Total Square (Post) (cm) 5.61 -Area of Debridement (cm) - Length 3.3 -Area of Debridement (cm) - Width 1.7 -Total Square (Area) (cm) 5.61 -Tunneling No -Undermining/Tunneling No -Circular Undermining No -Wound/Ulcer Outcome Not Healed -Ulcer Cleansing Rinsed/ Irrigated with Saline -Foul Odor after Cleansing No -Bioengineered Tissue No -Bleeding Controlled with Pressure -Treatment Response Procedure Tolerated Well -Offloading No -Debridement - Subq, 1st 20sq cm Yes Pain Scale: 0-10 Numeric Is Patient Pain Free? Yes WC - Nurse 3 - General Ulcer D/C NN Start: 02/29/24 10:06 Freq: Status: Active Protocol: Activity Type Activity Date Activity User E-sign Co-sign Detail Recorded Client Recorded Date Recorded By Document 02/29/24 10:55 [id number] 02/29/24 10:56 02/29/24 10:55 Wound Care Center Nurse 3 #3 L Calf cluster -Primary Dressing Applied Promogran Makenzie Matter -Other Dressing pt own foam drsg -Promogran Makenzie Matter 1 Left -Other pt own double E tubi Pain Scale: 0-10 Numeric Is Patient Pain Free? 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: CODE(S): L97.902 - Non-pressure chronic ulcer of unspecified part of unspecified lower leg with fat layer exposed QUALIFIERS: Laterality: left Qualified Code(s): L97.922 - Non- pressure chronic ulcer of unspecified part of left lower leg with fat layer exposed (2) Contusion of left lower leg, sequela: CODE(S): S80.12XS - Contusion of left lower leg, sequela (3) Hematoma: CODE(S): T14.8XXA - Other injury of unspecified body region, initial encounter (4) Chronic anticoagulation: CODE(S): Z79.01 - exterminator helper termite (current) use of 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s PLAN: Plan She has had 10 applications of Theraskin. Wound care - Continue Makenzie covered with [place] SAP or silicone border gauze daily. Wash the ulcer with soap and water at the time of the dressing change. Compression - Double tubigrip. Stressed importance of keeping legs elevated when sitting to help prevent edema. Encouraged protein supplementation to help with wound healing. She has been using Daniel. Follow-up 2 weeks. Instructed to call or come in sooner if develop any concerns.
--- NOTE | 2024-03-01 11:58 | WC ---
PHOTO 02/29/24 LEFT CALF
[2024-03-14 10:03] VITALS: BP 147/84; PULSE 91; RESP 16; TEMP 36; BMI 27.6
--- NOTE | 2024-03-14 11:06 | PCM.WC.PN ---
History of Present Illness Date of Service: 03/14/24 Chief Complaint: Left lateral leg ulcer that was initially caused by trauma from bumping leg on edge of car. History of Wound: Patient is 83 year female who presents for further evaluation of an ulcer on her left posterolateral leg. She initially bumped her leg on her car frame when removing something from her car on 05/22/24 and needed sutures to her left anterior leg. She then developed increased pain, swelling and a hematoma to her left leg and was seen in the ED very early on 05/27/23. She is on chronic anticoagulation for Afib, her INR was 5.3 at that time. She was discharged home with follow up with her PCP later that day. She returned to the ED via squad later that day after she experienced a large amount of bleeding. The hematoma was evacuated in the ED under sedation. She was admitted to the hospital and she required transfusion of 1 unit PRBC when her hemoglobin dropped from 11 to 6.9. She was transferred to [facility] for a little while. She comes in today for further evaluation of her left posterolateral leg ulcer from a hematoma. She states she is doing well at home. Her daughter is helping her with her dressing changes. Wound care - Alix. 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 Wound cultures obtained 07/27/23 which were positive for Pseudomonas aeruginosa, MRSA, Corynebacterium striatum, and Anaerobic cocci. She was placed on Flagyl and finished them. She was placed on Levaquin and is tolerating them thus far. She was placed on Linezolid and stated she had some visual problems and stopped the antibiotic. Stopped the Clindamycin due severe heart burn. Re-cultured the ulcer on 08/25/23 and it was positive for Acinetobacter baumannii. Started her on Augmentin, which she has tolerated in the past. Today she denies fever, chills, nausea or vomiting. Her appetite is good. Patient was interested in advanced skin substitute grafts to help the ulcer to heal. She has had 10 applications of Theraskin. Progress of Wound: Left lateral leg ulcer is stable today. It is beefy pink, the edges are curling and there is dry scabbing surrounding the ulcer. Objective Data Objective Data Vital Signs: Vital Signs Temp Pulse Resp BP O2 Del Method 96.8 F L 91 16 147/84 H Room Air 03/14/24 10:03 03/14/24 10:03 03/14/24 10:03 03/14/24 10:03 03/14/24 10:03 Oxygen Delivery Method Room Air Weight: 170 lb 12.573 oz Body Mass Index (BMI) 27.6 Charges/Coding Procedures Integumentary 111xxx-113xx: 09094 Humera subq tissue 20 sq cm/< Debridement Note Debridement Note Wound debrided: #3 - Left posterolateral leg ulcer cluster Laterality: Left Wound Grade/Stage: Grade III Type of Debridement: Excisional debridement Anesthesia Used: 5% Lidocaine Gel Depth: Down to and including healthy tissue and in the subcutaneous layer Percentage of wound debrided: 100 Instrument Used: 5mm curette Tissue Removed: subcutaneous tissue, senescent cells, curving edges Severity: Fat Layer Exposed Amount of bleeding with debridement: Mild Bleeding Controlled with: Pressure and Compression and gauze Patient tolerated procedure: Patient tolerated procedure well Post-Debridement Measurements and Additional Note: Post-Debridement Measurements/Treatment - Nurse 1 - General Ulcer Assessment Start: 02/29/24 10:06 Freq: Status: Active Protocol: MIKE.SONIA Activity Type Activity Date Activity User E-sign Co-sign Detail Recorded Client Recorded Date Recorded By Document 02/29/24 10:06 KW [id number] 02/29/24 10:14 KW Document 03/14/24 10:03 KW [id number] 03/14/24 10:06 KW 02/29/24 03/14/24 10:06 10:03 - Today's Visit Information Type of service Follow-up Visit Follow-up Visit (Physician/PROGRAMMER ENGINEERING AND SCIENTIFIC (Physician/PROGRAMMER ENGINEERING AND SCIENTIFIC ) ) Arrival Mode Ambulatory Ambulatory Patient Identification Verified (Name & Yes Yes ) Height and Weight Body Mass Index (BMI) 27.6 27.6 BMI Classification Overweight Overweight Vital Signs Temperature (97.8 F-99.1 F) 96.5 F L 96.8 F L Temperature Source Temporal Temporal Pulse Rate (60-100) 91 91 Pulse Location Monitor Monitor Respiratory Rate (12-18) 18 16 Respiratory rate source Observation Observation Oxygen Delivery Method Room Air Room Air Blood Pressure (90/60-120/80) 152/87 H 147/84 H Blood Pressure Mean (mm Hg) 108 105 Source Monitor Monitor Position Semi-Fowlers Semi-Fowlers Blood Pressure Location Left Arm Left Arm History Since Last Visit- (Skip if this is Patient's initial visit) Have you changed medications since your No No last visit? Any new allergies or adverse reactions No No Had a fall/change in ADL's that may No No increase risk of falls Signs or symptoms of abuse and/or No No neglect since last visit Have you been in the hospital since your No No last visit? Has dressing in place as prescribed Yes Yes Has compression in place as prescribed Yes Yes Has offloadiing in place as prescribed N/A N/A Experienced any changes in pain level or No No management Left Footwear Regular Shoe Regular Shoe Right Footwear Regular Shoe Regular Shoe Pain Scale: 0-10 Numeric Is Patient Pain Free? Yes Yes WC - Nurse 1 - General Ulcer Measurement Start: 02/29/24 10:06 Freq: Status: Active Protocol: Activity Type Activity Date Activity User E-sign Co-sign Detail Recorded Client Recorded Date Recorded By Document 02/29/24 10:06 KW [id number] 02/29/24 10:14 KW Document 03/14/24 10:03 KW [id number] 03/14/24 10:06 KW 02/29/24 03/14/24 10:06 10:03 Wound Center Nurse 1 #3 L Calf cluster -Current Size (cm) - Length 1.8 2.3 -Current Size (cm) - Width 3 2.5 -Current Size (cm) - Depth 0.2 0.2 -Total Square Cm 5.4 5.75 -Date of Last Picture (Recall this 02/29/24 field) -Epithelialization Medium 34-66% -Exudate Amt Small Medium -Exudate Type Serosanguineous Serosanguineous -Wound Margin Distinct, Distinct, Outline Outline Attached Attached -Granulation Amt Medium (34-66%) Large (67-100%) -Granulation Quality Red Red -Necrosis Amt Small (1-33%) -Necrotic Tissue Type Adherent Slough -Texture (Karen-wound Skin Appearance) Assessed Assessed, Scarring -Moisture (Karen-wound Skin Appearance) Assessed Assessed -Color (Karen-wound Skin Appearance) Assessed Assessed -Temperature (Karen-wound Skin No Abnormality No Abnormality Appearance) (Pt Warm) (Pt Warm) -Tenderness on Palpation (Karen-wound No No Skin Appearance) -Ulcer Cleansing Rinsed/ Rinsed/ Irrigated with Irrigated with Saline Saline -Foul Odor after Cleansing No No -Anesthetic Used 5% Lidocaine 5% Lidocaine Gel Gel Left Calf (cm) 37.5 36.6 Left Ankle (cm) 21 20.6 - Nurse 2 - General Ulcer CM Notes Start: 02/29/24 10:06 Freq: Status: Active Protocol: Activity Type Activity Date Activity User E-sign Co-sign Detail Recorded Client Recorded Date Recorded By Document 02/29/24 10:32 [id number] 02/29/24 10:35 Document 03/14/24 10:23 [id number] 03/14/24 10:25 02/29/24 03/14/24 10:32 10:23 Wound Center Nurse 2 #3 L Calf cluster -Time 10:32 10:24 -Correct Patient Yes Yes -Correct Side, Site, Position Yes Yes -Correct Procedure Yes Yes -Procedure Performed Yes Yes -Type of Procedure Debridement Debridement -Clinical Debridement Subcutaneous Subcutaneous -Tissue Removed Subcutaneous Subcutaneous -Post Debridement (cm) - Length 3.3 3.3 -Post Debridement (cm) - Width 1.7 2.2 -Post Debridement (cm) - Depth 0.2 0.2 -Total Square (Post) (cm) 5.61 7.26 -Area of Debridement (cm) - Length 3.3 3.3 -Area of Debridement (cm) - Width 1.7 2.2 -Total Square (Area) (cm) 5.61 7.26 -Tunneling No No -Undermining/Tunneling No No -Circular Undermining No No -Wound/Ulcer Outcome Not Healed Not Healed -Ulcer Cleansing Rinsed/ Rinsed/ Irrigated with Irrigated with Saline Saline -Foul Odor after Cleansing No No -Bioengineered Tissue No No -Bleeding Controlled with Pressure Pressure -Treatment Response Procedure Procedure Tolerated Well Tolerated Well -Offloading No No -Debridement - Subq, 1st 20sq cm Yes Yes Pain Scale: 0-10 Numeric Is Patient Pain Free? Yes Yes - Nurse 3 - General Ulcer D/C NN Start: 02/29/24 10:06 Freq: Status: Active Protocol: Activity Type Activity Date Activity User E-sign Co-sign Detail Recorded Client Recorded Date Recorded By Document 02/29/24 10:55 KW [id number] 02/29/24 10:56 KW Document 03/14/24 10:38 KW [id number] 03/14/24 10:39 KW 02/29/24 03/14/24 10:55 10:38 Wound Care Center Nurse 3 #3 L Calf cluster -Ulcer Cleansing Rinsed/ Irrigated with Saline -Primary Dressing Applied Promogran Alix Matter -Other Dressing pt own foam pt own alix drsg covered with foam dressing -Promogran Alix Matter 1 Left -Tubular Bandage Double Layer -Size of Tubigrip Used Size E -Size E ($) 2 -Other pt own double E tubi Pain Scale: 0-10 Numeric Is Patient Pain Free? 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 Wound care - Continue Alix covered with [place] SAP or silicone border gauze daily. Wash the ulcer with soap and water at the time of the dressing change. Compression - Double tubigrip. Will order Arterial and venous studies. Stressed importance of keeping legs elevated when sitting to help prevent edema. Encouraged to not put pressure on back of leg when sitting. Maybe put rolled towel under knee to prevent posterior leg from pressure when sitting with leg elevated. Encouraged protein supplementation to help with wound healing. She has been using Daniel. Follow-up 2 weeks. Instructed to call or come in sooner if develop any concerns.
--- NOTE | 2024-03-14 13:35 | WC ---
PHOTO 03/14/24 LEFT CALF CLUSTER
== END 2024-03-24 23:59 | disposition home or self-care (01) ==
LOC: WC 10:00
PROVIDERS: PCP Family Medicine Geriatric Medicine; Referring Provider Family Medicine Geriatric Medicine; Visit Provider Nurse Practitioner Family
DX: L97.922 Non-pressure chronic ulcer of unspecified part of left lower leg with fat layer exposed (principal); I48.91 Unspecified atrial fibrillation; S80.12XS Contusion of left lower leg, sequela; Z79.01 Long term (current) use of 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s; Z95.0 Presence of cardiac pacemaker; I10 Essential (primary) hypertension; E78.5 Hyperlipidemia, unspecified; Z86.718 Personal history of other venous thrombosis and embolism; Z86.14 Personal history of Methicillin resistant Staphylococcus aureus infection
CPT/HCPCS: 11042

== ENCOUNTER → 2024-03-16 | Outpatient (CLI) | payer MEDICARE, OTHER, SELFPAY | END | disposition home or self-care (01) | LOC: POLAB3 13:49 | PROVIDERS: PCP Family Medicine Geriatric Medicine; Visit Provider Family Medicine Geriatric Medicine | DX: B02.9 Zoster without complications (principal); B35.4 Tinea corporis; L29.9 Pruritus, unspecified; L03.90 Cellulitis, unspecified | CPT/HCPCS: 87070; 87077; 87102; 87186; 87205; 87206 ==

== ENCOUNTER 2024-03-18 11:27 | Emergency (ER) | payer OTHER, MEDICARE, SELFPAY ==
[2024-03-18 11:30] VITALS: BP 158/102; PULSE 83; RESP 16; TEMP 36.4; O2SAT 95; BMI 27.1
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
[2024-03-18] MEDS: Ondansetron 4 MG/2 ML Vial IV (12:50)
[2024-03-18] MEDS: Morphine 4 MG/ML Syringe IV (12:50)
[2024-03-18 15:39] VITALS: BP 137/69; PULSE 73; RESP 15; TEMP 36.7; O2SAT 96
== END 2024-03-18 15:41 | disposition home or self-care (01) ==
PROVIDERS: Emergency Provider Emergency Medicine; PCP Family Medicine Geriatric Medicine; Visit Provider Emergency Medicine
DX: S20.212A Contusion of left front wall of thorax, initial encounter (principal); M06.9 Rheumatoid arthritis, unspecified; I48.0 Paroxysmal atrial fibrillation; V43.62XA Car passenger injured in collision with other type car in traffic accident, initial encounter; K22.89 Other specified disease of esophagus; I10 Essential (primary) hypertension; I34.1 Nonrheumatic mitral (valve) prolapse; I25.10 Atherosclerotic heart disease of native coronary artery without angina pectoris; G47.30 Sleep apnea, unspecified; G89.29 Other chronic pain; Z95.0 Presence of cardiac pacemaker; Z86.73 Personal history of transient ischemic attack (TIA), and cerebral infarction without residual deficits; Z79.01 Long term (current) use of 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s; Z86.718 Personal history of other venous thrombosis and embolism; Z79.890 Hormone replacement therapy; Z79.899 Other long term (current) drug therapy; Z98.890 Other specified postprocedural states; Z87.891 Personal history of nicotine dependence
CPT/HCPCS: 71260; 74177; 96374; 96375; 99285; Q9967; A4216; J2405

== ENCOUNTER 2024-04-11 10:00 | Outpatient (RCR) | payer MEDICARE, OTHER, SELFPAY ==
[2024-03-25 00:38] VITALS: BP 142/70; PULSE 82; RESP 18; TEMP 36.7; BMI 27.6
[2024-03-28 10:06] VITALS: BP 136/92; PULSE 95; RESP 16; TEMP 36; BMI 27.6
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
--- NOTE | 2024-03-31 10:06 | VDLE_ITS ---
Reason For Study: LLE Wound RIGHT LEFT CFV is compressible, spontaneous, phasic, CFV is compressible, spontaneous, phasic, competent and demonstrates normal competent, and demonstrates normal augmentation. augmentation. FV is compressible, spontaneous, phasic, FV is compressible, spontaneous, phasic, competent and demonstrates normal competent and demonstrates normal augmentation. augmentation. POP V is compressible, spontaneous, phasic, POP V is compressible, spontaneous, phasic, competent and demonstrates normal competent and demonstrates normal augmentation. augmentation. T/P Trunk is compressible. T/P Trunk is compressible. PTV is compressible. PTV is compressible. RT PerV is compressible. LT PerV is compressible. SFJ is INCOMPETENT and measures 0.46 cm. SFJ is competent and measures 0.64 cm. GSV proximal thigh measures 0.36 x 0.38 cm. GSV proximal thigh measures 0.51 x 0.49 cm. GSV at knee measures 0.36 x 0.45 cm. GSV at knee measures 0.45 x 0.43 cm. GSV INCOMPETENT throughout for greater than GSV above knee is competent. 0.5 seconds. GSV below knee is INCOMPETENT for greater ASV mid thigh is INCOMPETENT for greater than than 0.5 seconds. 0.5 seconds and measures 0.59 x 0.60 cm. SSV mid calf is competent and measures 0.32 x ASV mid calf is INCOMPETENT for greater than 0.28 cm. 0.5 seconds and measures 0.59 x 0.59 cm. Rt ASV Calf shows bright, web-like intraluminal echoes consistent wich CHRONIC SVT. SSV mid calf is competent and measures 0.34 x 0.39 cm. Procedure Exam performed in department. This is a venous duplex using B-mode, color flow and spectral Doppler. The exam was diagnostic. Patient was scanned in reverse Trendelenburg position during reflux assessment. VL/Venous Duplex US - Luigi Extrem Interpretation Summary Deep veins of the lower extremities are bilaterally patent and compressible seg mentally. There is no evidence of deep vein thrombosis on either side. Valvular competence appears in tact within the proximal deep venous systems bilaterally. The great saphenous veins appear bila terally patent and compressible segmentally. The right sapheno-femoral junction is incompetent . T he left sapheno- femoral junction is competent . The right great saphenous vein appears segmenta lly incompetent. The left great saphenous vein appears competent above the knee. The left great saph enous vein appears incompetent below the knee. Small saphenous veins are patent and competent bila terally. The accessory saphenous vein in the right mid-thigh and mid-calf are incompetent. C hronic venous changes are noted in an accessory saphenous vein in the right calf. Ordering Physician: Birgit Leon Referring Physician: Yaya Brandt Chi Performed By: Rodríguez Leija RVT
--- NOTE | 2024-03-31 10:06 | ART_ITS ---
Reason For Study: LLE Wound Procedure A bilateral lower extremity continuous wave Doppler with analog waveform analysis,segmental pressures,and ankle brachial indexes without exercise. Left Segmental Pressures Left brachial= 135mmHg. Left posterior tibial artery = >254mmHg. Left dorsalis pedis artery = 149mmHg. Left digit = 100 mmHg. The left posterior tibial artery waveforms are triphasic. The left dorsalis pedis waveforms are triphasic. Right Segmental Pressures Right brachial= 134mmHg. Right posterior tibial artery = >254mmHg. Right dorsalis pedis artery = >254mmHg. Right digit = 124 mmHg. The right posterior tibial artery waveforms are triphasic. The right dorsalis pedis waveforms are triphasic. Indices The right ankle brachial index by the posterior tibial artery is N/C. The right ankle brachial index by the dorsalis pedis is N/C. The right digital-brachial index is 0.92. The left ankle brachial index by the posterior tibial artery is N/C. The left ankle brachial index by the dorsalis pedis is 1.10. The left digital-brachial index is 0.74. VL/Lower Ext Art Exam w/o Exercis Interpretation Summary Triphasic Doppler waveforms are noted at ankle level bilaterally. Pulse-volume recordings appear satisfactory at all levels bilaterally. The resting right ankle-brachial index could not be determined due to the non-compressibility of the vasculature at ankle level on the right. The resting left ankle-brachial index is normal. Digital-brachial indices are soni l bilaterally. There is evidence of arterial calcification at ankle level on the right. There is no evidence of significant arterial occlusive disease in the lower extremities bilaterally. Ordering Physician: Birgit Leon Referring Physician: Yaya Brandt Chi Performed By: Rodríguez Leija RVT
[2024-04-11 10:11] VITALS: BP 161/85; PULSE 94; RESP 16; TEMP 36.1; BMI 27.6
--- NOTE | 2024-04-11 11:32 | PCM.WC.PN ---
History of Present Illness Date of Service: 04/11/24 Chief Complaint: Left lateral leg ulcer that was initially caused by trauma from bumping leg on edge of car. History of Wound: Patient is 83 year female who presents for further evaluation of an ulcer on her left posterolateral leg. She initially bumped her leg on her car frame when removing something from her car on 05/22/24 and needed sutures to her left anterior leg. She then developed increased pain, swelling and a hematoma to her left leg and was seen in the ED very early on 05/27/23. She is on chronic anticoagulation for Afib, her INR was 5.3 at that time. She was discharged home with follow up with her PCP later that day. She returned to the ED via squad later that day after she experienced a large amount of bleeding. The hematoma was evacuated in the ED under sedation. She was admitted to the hospital and she required transfusion of 1 unit PRBC when her hemoglobin dropped from 11 to 6.9. She was transferred to [facility] for a little while. She comes in today for further evaluation of her left posterolateral leg ulcer from a hematoma. She states she is doing well at home. Her daughter is helping her with her dressing changes. Wound care - Alix. She has a history of Afib, machine long goods helper coagulation, mitral valve regurgitation, cardiac ablation, cardiac pace maker, DVT, HTN, hyperlipidemia, rheumatoid arthritis, cataract removal, and multiple wounds in the past. Wound cultures obtained 07/27/23 which were positive for Pseudomonas aeruginosa, MRSA, Corynebacterium striatum, and Anaerobic cocci. She was placed on Flagyl and finished them. She was placed on Levaquin and is tolerating them thus far. She was placed on Linezolid and stated she had some visual problems and stopped the antibiotic. Stopped the Clindamycin due severe heart burn. Re-cultured the ulcer on 08/25/23 and it was positive for Acinetobacter baumannii. Started her on Augmentin, which she has tolerated in the past. Arterial studies obtained 03/31/24 - Right GEOVANNA at digital level 0.92 (non compressible at posterior tib and dorsalis pedis). Left GEOVANNA 1.10. Triphasic Doppler waveforms are noted at ankle level bilaterally. Pulse-volume recordings appear satisfactory at all levels bilaterally. The resting right ankle-brachial index could not be determined due to the non-compressibility of the vasculature at ankle level on the right. The resting left ankle-brachial index is normal. Digital-brachial indices are normal bilaterally. There is evidence of arterial calcification at ankle level on the right. There is no evidence of significant arterial occlusive disease in the lower extremities bilaterally. Venous doppler obtained 03/31/24 - Deep veins of the lower extremities are bilaterally patent and compressible segmentally. There is no evidence of deep vein thrombosis on either side. The right sapheno-femoral junction is incompetent . The right great saphenous vein appears segmentally incompetent. The left great saphenous vein appears incompetent below the knee. The accessory saphenous vein in the right mid-thigh and mid-calf are incompetent. Chronic venous changes are noted in an accessory saphenous vein in the right calf. Today she denies fever, chills, nausea or vomiting. Her appetite is good. Patient was interested in advanced skin substitute grafts to help the ulcer to heal. She has had 10 applications of Theraskin. Progress of Wound: Left lateral leg ulcer is mildly smaller. It is beefy pink. Her edema is well controlled. Reviewed her vascular studies. Objective Data Objective Data Vital Signs: Vital Signs Temp Pulse Resp BP O2 Del Method 96.9 F L 94 16 161/85 H Room Air 04/11/24 10:11 04/11/24 10:11 04/11/24 10:11 04/11/24 10:11 04/11/24 10:11 Oxygen Delivery Method Room Air Weight: 170 lb 12.573 oz Body Mass Index (BMI) 27.6 Charges/Coding Procedures Integumentary 111xxx-113xx: [id number] Humera subq tissue 20 sq cm/< Debridement Note Debridement Note Wound debrided: #3 - Left posterolateral leg ulcer cluster Laterality: Left Wound Grade/Stage: Grade III Type of Debridement: Excisional debridement Anesthesia Used: 5% Lidocaine Gel Depth: Down to and including healthy tissue and in the subcutaneous layer Percentage of wound debrided: 100 Instrument Used: 5mm curette Tissue Removed: subcutaneous tissue, senescent cells, curving edges Severity: Fat Layer Exposed Amount of bleeding with debridement: Mild Bleeding Controlled with: Pressure and Compression and gauze Patient tolerated procedure: Patient tolerated procedure well Post-Debridement Measurements and Additional Note: Post-Debridement Measurements/Treatment MIKE - Nurse 1 - General Ulcer Assessment Start: 03/28/24 10:06 Freq: Status: Active Protocol: [place] Activity Type Activity Date Activity User E-sign Co-sign Detail Recorded Client Recorded Date Recorded By Document 03/28/24 10:06 [facility] [id number] 03/28/24 10:12 [facility] Document 04/11/24 10:11 [facility] [id number] 04/11/24 10:16 [facility] 03/28/24 04/11/24 10:06 10:11 - Today's Visit Information Type of service Follow-up Visit 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 ) ) Arrival Mode Ambulatory Ambulatory Transfer Assistance None None Patient Identification Verified (Name & Yes No ) Patient Requires Transmission-Based No Precautions Height and Weight Weight Measurement Method Standing Scale Body Mass Index (BMI) 27.6 27.6 BMI Classification Overweight Overweight Vital Signs Temperature (97.8 F-99.1 F) 96.8 F L 96.9 F L Temperature Source Temporal Temporal Pulse Rate (60-100) 95 94 Pulse Location Monitor Monitor Respiratory Rate (12-18) 16 16 Respiratory rate source Observation Observation Oxygen Delivery Method Room Air Room Air Blood Pressure (90/60-120/80) 136/92 H 161/85 H Blood Pressure Mean (mm Hg) 106 110 Source Monitor Monitor Position Sitting Blood Pressure Location Left Arm Comment pt states just took her bp med History Since Last Visit- (Skip if this is Patient's initial visit) Have you changed medications since your No No last visit? Any new allergies or adverse reactions No No Had a fall/change in ADL's that may No No increase risk of falls Signs or symptoms of abuse and/or No No neglect since last visit Have you been in the hospital since your No No last visit? Has dressing in place as prescribed Yes Yes Has compression in place as prescribed Yes Yes Has offloadiing in place as prescribed N/A N/A Experienced any changes in pain level or No No management Left Footwear Regular Shoe Regular Shoe Right Footwear Regular Shoe Regular Shoe Pain Scale: 0-10 Numeric Is Patient Pain Free? Yes Yes - Nurse 1 - General Ulcer Measurement Start: 03/28/24 10:06 Freq: Status: Active Protocol: Activity Type Activity Date Activity User E-sign Co-sign Detail Recorded Client Recorded Date Recorded By Document 03/28/24 10:06 [facility] [id number] 03/28/24 10:12 [facility] Document 04/11/24 10:11 [facility] [id number] 04/11/24 10:16 [facility] 03/28/24 04/11/24 10:06 10:11 Wound Center Nurse 1 #3 L Calf cluster -Combined with other wound No -Current Size (cm) - Length 3.2 1.4 -Current Size (cm) - Width 1.6 2.6 -Current Size (cm) - Depth 0.2 0.1 -Total Square Cm 5.12 3.64 -Date of Last Picture (Recall this 04/11/24 field) -Photo Taken Yes Yes -Epithelialization Small 1-33% -Tunneling No No -Undermining/Tunneling No No -Circular Undermining No No -Exudate Amt Medium Medium -Exudate Type Serosanguineous Serosanguineous -Wound Margin Thickened Distinct, Outline Attached -Granulation Amt Medium (34-66%) Large (67-100%) -Granulation Quality Pale,Red Red -Slough/Fibrin Yes No -Necrosis Amt Medium (34-66%) None Present (0 %) -Necrotic Tissue Type Adherent Slough -Texture (Karen-wound Skin Appearance) Assessed, Assessed Scarring -Moisture (Karen-wound Skin Appearance) Assessed,Dry/ Assessed,Dry/ Scaly Scaly -Color (Karen-wound Skin Appearance) Assessed Assessed -Temperature (Karen-wound Skin No Abnormality No Abnormality Appearance) (Pt Warm) (Pt Warm) -Tenderness on Palpation (Karen-wound No No Skin Appearance) -Ulcer Cleansing Rinsed/ Rinsed/ Irrigated with Irrigated with Saline Saline -Foul Odor after Cleansing No No -Anesthetic Used 5% Lidocaine 5% Lidocaine Gel Gel Left Calf (cm) 37.2 37.7 Left Ankle (cm) 20.8 20.5 WC - Nurse 2 - General Ulcer CM Notes Start: 03/28/24 10:06 Freq: Status: Active Protocol: Activity Type Activity Date Activity User E-sign Co-sign Detail Recorded Client Recorded Date Recorded By Document 03/28/24 10:51 [id number] 03/28/24 10:53 Document 04/11/24 10:35 [id number] 04/11/24 10:37 03/28/24 04/11/24 10:51 10:35 Wound Center Nurse 2 #3 L Calf cluster -Time 10:52 10:36 -Correct Patient Yes Yes -Correct Side, Site, Position Yes Yes -Correct Procedure Yes Yes -Procedure Performed Yes Yes -Type of Procedure Debridement Debridement -Clinical Debridement Subcutaneous Subcutaneous -Tissue Removed Subcutaneous Subcutaneous -Post Debridement (cm) - Length 3.5 3.1 -Post Debridement (cm) - Width 2 1.5 -Post Debridement (cm) - Depth 0.2 0.1 -Total Square (Post) (cm) 7.0 4.65 -Area of Debridement (cm) - Length 3.5 3.1 -Area of Debridement (cm) - Width 2.0 1.5 -Total Square (Area) (cm) 7.00 4.65 -Tunneling No No -Undermining/Tunneling No No -Circular Undermining No No -Wound/Ulcer Outcome Not Healed Not Healed -Ulcer Cleansing Rinsed/ Rinsed/ Irrigated with Irrigated with Saline Saline -Foul Odor after Cleansing No No -Bioengineered Tissue No No -Bleeding Controlled with Pressure Pressure -Treatment Response Procedure Procedure Tolerated Well Tolerated Well -Offloading No No -Debridement - Subq, 1st 20sq cm Yes Yes Pain Scale: 0-10 Numeric Is Patient Pain Free? Yes Yes - Nurse 3 - General Ulcer D/C NN Start: 03/28/24 10:06 Freq: Status: Active Protocol: Activity Type Activity Date Activity User E-sign Co-sign Detail Recorded Client Recorded Date Recorded By Document 03/28/24 11:02 [id number] 03/28/24 11:03 KW Document 04/11/24 10:46 [id number] 04/11/24 10:46 KW 03/28/24 04/11/24 11:02 10:46 Wound Care Center Nurse 3 #3 L Calf cluster -Other Dressing pt own alix pt own alix with boarder dressing -Primary Dressing Covered/Secured with Dry Gauze Right -Tubular Bandage Double Layer -Size of Tubigrip Used Size E -Size E ($) 2 Left -Tubular Bandage Double Layer -Size of Tubigrip Used Size E -Size E ($) 2 -Other pt own tubigrip , double E Pain Scale: 0-10 Numeric Is Patient Pain Free? 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 Wound care - Continue Alix covered with [place] SAP or silicone border gauze daily. Wash the ulcer with soap and water at the time of the dressing change. Compression - Double tubigrip bilaterally. Vascular studies reviewed. Stressed importance of keeping legs elevated when sitting to help prevent edema. Encouraged to not put pressure on back of leg when sitting. Maybe put rolled towel under knee to prevent posterior leg from pressure when sitting with leg elevated. Encouraged protein supplementation to help with wound healing. She has been using Daniel. She is not interested in surgical skin graft placement at this time. Follow-up 2 weeks. Instructed to call or come in sooner if develop any concerns.
== END 2024-04-23 23:59 | disposition home or self-care (01) ==
LOC: WC 10:00
PROVIDERS: PCP Family Medicine Geriatric Medicine; Referring Provider Family Medicine Geriatric Medicine; Visit Provider Nurse Practitioner Family
DX: L97.922 Non-pressure chronic ulcer of unspecified part of left lower leg with fat layer exposed (principal); R60.9 Edema, unspecified; S80.12XS Contusion of left lower leg, sequela; Z79.01 Long term (current) use of 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s; Z95.0 Presence of cardiac pacemaker; Z86.718 Personal history of other venous thrombosis and embolism; I10 Essential (primary) hypertension; E78.5 Hyperlipidemia, unspecified
CPT/HCPCS: 11042; 93923; 93970

== ENCOUNTER → 2024-05-10 | Outpatient (CLI) | payer MEDICARE, OTHER, SELFPAY ==
[2024-05-10 10:51] LABS: Absolute Lymphocyte Count 1.18 X10^3/uL (0.83-4.51); Absolute Neutrophil Count 8.2 X10^3/uL (2.0-7.7); Basophil# 0.04 X10^3/uL; Basophil% 0.4 % (0-1); Eosinophil# 0.11 X10^3/uL; Eosinophils% 1.1 % (0-5); Hematocrit 45.1 % (37-47); Hemoglobin 14.4 g/dL (12.0-15.0); Lymphocyte # 1.18 X10^3/ul (0.83-4.51); Lymphocyte % 11.9 % (19-41); Mean Corp Hgb Conc 31.9 g/dL (32-36); Mean Corpuscular Hgb 30.2 pg (27.0-32.0); Mean Corpuscular Volume 94.5 fL (81-99); Mean Platelet Vol. 10.8 fl (6.2-12.0); Monocyte# 0.37 X10^3/uL; Monocyte% 3.7 % (0-10); NRBC Flagged by Analyzer 0 % (0-5); Neutrophil % 82.5 % (47-70); Platelet Count 189 K/mm3 (150-450); RBC Distribution Width CV 16.2 % (11.6-14.6); RBC Distribution Width SD 56.7 fl (35.1-43.9); Red Blood Count 4.77 M/mm3 (4.2-5.4); White Blood Count 9.9 K/mm3 (4.4-11.0)
[2024-05-10 11:31] LABS: ALB/GLOB Ratio 0.8 RATIO (0.9-2.4); AST(SGOT) 24 U/L (15-37); Alanine Aminotransfer ALT/SGPT 38 U/L (13-56); Albumin, Serum 3.3 g/dL (3.2-5.0); Alkaline Phosphatase 99 U/L (45-117); Anion Gap 6 (5-15); BUN 23 mg/dL (7-18); BUN/Creat Ratio 24.3 RATIO (10-20); Calcium,Total 8.7 mg/dL (8.5-10.1); Chloride 108 mmol/L (98-107); Creatinine, Serum 0.95 mg/dL (0.55-1.02); EST Glomerular Filtration Rate 60 mL/min (>60); Est Glom Filt Rate - Afr Amer 73 mL/min (>60); Globulin 4.1 g/dL (2.2-4.2); Glucose 139 mg/dL (74-106); Potassium 4.1 mmol/L (3.5-5.1); Protein, Total 7.4 g/dL (6.4-8.2); Sodium Level 140 mmol/L (136-145)
[2024-05-10 11:34] LABS: Vitamin D,25 Hydroxy 52.2 ng/mL
== END | disposition home or self-care (01) ==
LOC: POLAB3 10:28
PROVIDERS: PCP Family Medicine Geriatric Medicine; Visit Provider Family Medicine Geriatric Medicine
DX: I10 Essential (primary) hypertension (principal); E55.9 Vitamin D deficiency, unspecified
CPT/HCPCS: 36415; 80053; 82306; 84443; 85025

== ENCOUNTER 2024-05-20 09:38 | Day surgery (SDC) | payer MEDICARE, OTHER, SELFPAY ==
--- NOTE | 2024-05-16 15:35 | PAT.ANESEVAL ---
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 When Was Last Pacemaker Check 05/08/2023 05/27/23 21:40 QUESTION #4 FULL TEXT: You/Your Family Experience fever (hyperthermia) with Anesthesia Last Oral Intake Last Oral intake: Last Oral Intake NPO since Meds taken in AM with sips of water? Meds patient instructed to take am of surgery PONV PONV - furniture finisher helper: PONV - furniture finisher helper Female Yes 05/16/24 09:30 HX of Motion Sickness No 05/16/24 09:30 HX of N/V After Surgery No 05/16/24 09:30 Non-Smoker Yes 05/16/24 09:30 Duration of Surgery greater No 05/16/24 09:30 than 60 minutes Number of Risk Factors 2 05/16/24 09:30 PONV Score Moderate Risk 05/16/24 09:30 Height & Weight Height & Weight: Anesthesia: Height & Weight Height 5 ft 6 in 04/04/24 14:04 Respiratory Assessment Respiratory Assessment - furniture finisher helper: Respiratory Tract Infection Hx - furniture finisher helper Hx Respiratory Tract Infection No 05/16/24 09:30 STOP Sleep Apnea STOP Sleep Apnea - furniture finisher helper: STOP Sleep Apnea - furniture finisher helper Hx Hypertension Yes 05/16/24 09:30 Hx Sleep Apnea Yes 05/16/24 09:30 CPAP Yes 05/16/24 09:30 BIPAP No 05/16/24 09:30 Do you snore loudly (louder than talking or can be heard Do you often feel tired/ fatigued/ sleepy during daytime? Has anyone observed you stop breathing during sleep? STOP Results Positive 05/16/24 09:30 QUESTION #5 FULL TEXT : Do you snore loudly (louder than talking or can be heard through closed doors)? 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 Specify any problems Hx of Preganancy in last 3 No 05/16/24 09:30 Months Nurse Filling Out Transfusion [facility] 05/16/24 09:30 & Questions: Date: 05/16/24 05/16/24 09:30 Time: 09:44 05/16/24 09:30 Patient unable to answer at this time (ie. confused, unrespo /Reproduction History /Reproductive History - furniture finisher helper: /Reproductive Hx- furniture finisher helper Hx Now Gestational Age (in weeks): EDC: Hx Hx Para Hx Section SAB PFSH Medical History Wears glasses Bladder disease Easy bruising Back pain Stroke/cerebrovascular accident Non-smoker History of echocardiogram History of stress test History of pacemaker History of atrial fibrillation Cardiology follow-up encounter Open wound History of atrial fibrillation Incarcerated hernia Post-menopausal Chronic pain Rheumatoid arthritis CPAP (continuous positive airway pressure) dependence Sleep apnea Coronary artery disease Hypertension DVT (deep venous thrombosis) Presence of cardiac pacemaker 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 of 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 Non-rheumatic mitral regurgitation History of left heart catheterization (LHC) (~1989) History of cardioversion (~03/22/19) Essential hypertension History of CVA (cerebrovascular accident) (~2012) Ulcer of left lower extremity with fat layer exposed Open wound of left lower extremity with complication Chronic anticoagulation Hematoma of left lower extremity Paroxysmal atrial fibrillation Hyperlipidemia Home Medications ?Medication ?Instructions ?Recorded ?Last Taken ?Type ascorbic acid (vitamin C) 1,000 mg 500 mg PO DAILY SUPPLEMENT 10/28/16 03/20/19 History tablet cholecalciferol (vitamin D3) 50 2,000 unit PO QODAY SUPPLEMENT 11/11/18 03/20/19 History mcg (2,000 unit) capsule L.acidoph,paraccaprii,B.animalis 10 1 ea PO DAILY [facility] 03/21/19 03/21/19 History billion cell capsule magnesium oxide 400 mg (241.3 mg 400 mg PO DAILY SUPPLEMENT 03/21/19 03/21/19 History magnesium) tablet methenamine hippurate 1 gram tablet 1 g PO DAILY UTI PREVENTION 06/14/20 Unknown History HYDRO EYE 1 tab PO DAILY EYE HEALTH 06/21/20 Unknown History levothyroxine 25 mcg tablet 12.5 mcg PO QODAY THYROID 12/12/21 Unknown History vitamin B complex 1 cap PO DAILY SUPPLEMENT 06/17/22 Unknown History apixaban 5 mg tablet (Eliquis) 5 mg PO DAILY 08/03/23 Unknown History vitamin A 3,000 mcg (10,000 unit) 10,000 unit PO .COMPLEX SUPPLEMENT 08/03/23 Unknown History capsule metoprolol tartrate 25 mg tablet 25 mg PO BID BLOOD PRESSURE #180 12/14/23 Unknown Rx tabs losartan 25 mg tablet 25 mg PO BID #180 tabs 01/28/24 Unknown Rx Allergy/AdvReac Type Severity Reaction Status Date / Time No Known Allergies Allergy Verified 04/04/24 14:04 Family History Father CAD (coronary artery disease) Heart disease Mother Heart disease Hypertension Asthma Surgical History S/P small bowel resection History of eye surgery (~10/2021) History of cardiac radiofrequency ablation (RFA) (~01/15/17) Social History household members: none Smoking Status: Never smoker how long ago did patient quit smoking: Smoked for 2 years as a teen alcohol intake: never substance use type: does not use caffeine: No Audit: Pertinent Findings Pertinent Findings EKG Perinent findings: February 17, 2024. Electronic AV pacemaker. Stress test pertinent findings: January 20, 2022. No ischemia or infarct seen. Ejection fraction is 68%. Echo (EF%) pertinent findings: February 23, 2024. Ejection fraction 55%. Pulmonary artery systolic pressure is 55 mmHg. Mild pulmonary hypertension. No aortic stenosis seen. Consult pertinent findings: February 17, 2024. Dr. Perry. 1 valvular heart disease. patient has history of echocardiogram done in 2021 which showed a severely dilated left atrium and mildly dilated right atrium. There was also mild aortic stenosis. Will repeat echo at this time. #2 cardiac pacemaker -AV sequential pacing. #3 paroxysmal atrial fibs currently patient has a pacemaker and is on Eliquis. #4 chronic anticoagulation. This has been managed with Dr. Brandt's office. Recommendation Anesthesia Recommendation Anesthesia recommendation: OPTIMIZED for anesthesia
[2024-05-20] VITALS (9 sets, daily range): BP systolic 122–157; BP diastolic 79–92; PULSE 80–86; RESP 16; TEMP 36.4–36.9; O2SAT 94–100; BMI 26.8
--- NOTE | 2024-05-20 10:12 | PRE.ANES_ITS ---
ASA Classification* ASA Classification ASA Classification: 3 Assessment & Plan Anesthesia* Anesthesia Assessment Anesthesia Assessment: Discussed sedation and/or anesthesia options, risks, benefits, and alternatives with patient/parents/legal guardian/POA. Questions invited. The patient/parents/legal guardian/POA seems to understand and agrees to proceed with anesthesia plan. Reviewed the physical assessment, medical history, allergy history and patient home medications list prior to surgery/procedure/anesthetic and documented any changes. Performed airway and anesthesia risk assessments. Anesthesia Type Anesthesia Type: MAC Anesthesia Focused Assessment* Temperature: 97.7 F Pulse Rate: 86 Blood Pressure: 157/92 Respiratory Rate: 16 Pulse Ox: 100 Airway Assessment Mouth opens: >3 cm Mallampati Score: II Focused Labs Anesthesia Preop lab: CBC WBC 9.9 K/mm3 (4.4-11.0) 05/10/24 10:34 RBC 4.77 M/mm3 (4.2-5.4) 05/10/24 10:34 Hgb 14.4 g/dL (12.0-15.0) 05/10/24 10:34 Hct 45.1 % (37-47) 05/10/24 10:34 Plt Count 189 K/mm3 (150-450) 05/10/24 10:34 CHEMISTRY Potassium 4.1 mmol/L (3.5-5.1) 05/10/24 10:34 Sodium 140 mmol/L (136-145) 05/10/24 10:34 Magnesium 2.4 mg/dL (1.6-2.6) 06/15/23 07:15 BUN 23 mg/dL (7-18) H 05/10/24 10:34 Creatinine 0.95 mg/dL (0.55-1.02) 05/10/24 10:34 Glucose 139 mg/dL (74-106) H 05/10/24 10:34 TSH 2.660 uIU/mL (0.358-3.740) 05/10/24 10:34 COAG PT 16.7 SECONDS (11.7-14.9) H 06/18/23 05:40 INR 1.8 09/27/20 16:51 Pre-Assessment Diagnosis/Proposed Procedure Planned Operative Procedure(s): EGD Anesthesia History 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 When Was Last Pacemaker Check 05/08/2023 05/27/23 21:40 QUESTION #4 FULL TEXT: You/Your Family Experience fever (hyperthermia) with Anesthesia Last Oral Intake Last Oral intake: Last Oral Intake NPO since 08:30 05/20/24 09:53 Meds taken in AM with sips of Yes 05/20/24 09:53 water? Meds patient instructed to see mar 05/20/24 09:53 take am of surgery PONV PONV - new accounts banking representative: PONV - new accounts banking representative Female Yes 05/16/24 09:30 HX of Motion Sickness No 05/16/24 09:30 HX of N/V After Surgery No 05/16/24 09:30 Non-Smoker Yes 05/16/24 09:30 Duration of Surgery greater No 05/16/24 09:30 than 60 minutes Number of Risk Factors 2 05/16/24 09:30 PONV Score Moderate Risk 05/16/24 09:30 Height & Weight Height & Weight: Anesthesia: Height & Weight Height 5 ft 6 in 05/20/24 09:53 Weight: 75.296 kg 05/20/24 09:53 Body Mass Index (BMI) 26.8 05/20/24 09:53 Respiratory Assessment Respiratory Assessment - new accounts banking representative: Respiratory Tract Infection Hx - new accounts banking representative Hx Respiratory Tract Infection No 05/16/24 09:30 STOP Sleep Apnea STOP Sleep Apnea - new accounts banking representative: STOP Sleep Apnea - new accounts banking representative Hx Hypertension Yes 05/16/24 09:30 Hx Sleep Apnea Yes 05/16/24 09:30 CPAP Yes 05/16/24 09:30 BIPAP No 05/16/24 09:30 Do you snore loudly (louder than talking or can be heard Do you often feel tired/ fatigued/ sleepy during daytime? Has anyone observed you stop breathing during sleep? STOP Results Positive 05/16/24 09:30 QUESTION #5 FULL TEXT : Do you snore loudly (louder than talking or can be heard through closed doors)? 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 Specify any problems Hx of Preganancy in last 3 No 05/16/24 09:30 Months Nurse Filling Out Transfusion [facility] 05/16/24 09:30 & Questions: Date: 05/16/24 05/16/24 09:30 Time: 09:44 05/16/24 09:30 Patient unable to answer at this time (ie. confused, unrespo /Reproduction History /Reproductive History - new accounts banking representative: /Reproductive Hx- new accounts banking representative Hx Now Gestational Age (in weeks): EDC: Hx Hx Para Hx [facility] Medical History Wears glasses Bladder disease Easy bruising Back pain Stroke/cerebrovascular accident Non-smoker History of echocardiogram History of stress test History of pacemaker History of atrial fibrillation Cardiology follow-up encounter Open wound History of atrial fibrillation Incarcerated hernia Post-menopausal Chronic pain Rheumatoid arthritis CPAP (continuous positive airway pressure) dependence Sleep apnea Coronary artery disease Hypertension DVT (deep venous thrombosis) Presence of cardiac pacemaker 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 Non-rheumatic mitral regurgitation History of left heart catheterization (LHC) (~1989) History of cardioversion (~03/22/19) Essential hypertension History of CVA (cerebrovascular accident) (~2012) Ulcer of left lower extremity with fat layer exposed Open wound of left lower extremity with complication Chronic anticoagulation Hematoma of left lower extremity Paroxysmal atrial fibrillation Hyperlipidemia Home Medications ?Medication ?Instructions ?Recorded ?Last Taken ?Type ascorbic acid (vitamin C) 1,000 mg 500 mg PO DAILY SUPPLEMENT 10/28/16 03/20/19 History tablet cholecalciferol (vitamin D3) 50 2,000 unit PO QODAY SUPPLEMENT 11/11/18 03/20/19 History mcg (2,000 unit) capsule L.acidoph,paracasei,B.animalis 10 1 ea PO DAILY [facility] 03/21/19 03/21/19 History billion cell capsule magnesium oxide 400 mg (241.3 mg 400 mg PO DAILY SUPPLEMENT 03/21/19 03/21/19 History magnesium) tablet methenamine hippurate 1 gram tablet 1 g PO DAILY UTI PREVENTION 06/14/20 Unknown History HYDRO EYE 1 tab PO DAILY EYE HEALTH 06/21/20 Unknown History levothyroxine 25 mcg tablet 12.5 mcg PO QODAY THYROID 12/12/21 Unknown History vitamin B complex 1 cap PO DAILY SUPPLEMENT 06/17/22 Unknown History apixaban 5 mg tablet (Eliquis) 5 mg PO DAILY 08/03/23 05/17/24 History vitamin A 3,000 mcg (10,000 unit) 10,000 unit PO .COMPLEX SUPPLEMENT 08/03/23 Unknown History capsule metoprolol tartrate 25 mg tablet 25 mg PO BID BLOOD PRESSURE #180 12/14/23 05/20/24 07:30 Rx tabs losartan 25 mg tablet 25 mg PO BID #180 tabs 01/28/24 05/20/24 Rx Allergy/AdvReac Type Severity Reaction Status Date / Time No Known Allergies Allergy Verified 05/20/24 09:52 Family History Father CAD (coronary artery disease) Heart disease Mother Heart disease Hypertension Asthma Surgical History S/P small bowel resection History of eye surgery (~10/2021) History of cardiac radiofrequency ablation (RFA) (~01/15/17) Social History household members: none Smoking Status: Never smoker how long ago did patient quit smoking: Smoked for 2 years as a teen alcohol intake: never substance use type: does not use caffeine: No Review of Systems (Anesthesia) ROS Narrative System reviewed and no additional complaints, except as documented.
--- NOTE | 2024-05-20 10:33 | PCM.HP.BLA ---
History and Physical Date of Admission: 05/20/24 Intake Vital Signs 03/18/2411:30 04/04/2414:04 Height 5 ft 6 in 5 ft 6 in Weight: 166 lb BMI 26.8 BP 139/86 H Blood Pressure Location Lt brachial Position Sitting Respiration 18 Intake Visit Reasons: INGUINAL HERNIA Chief Complaint: Abn CT Software Development Manager Required: No Is patient in pain?: No Allergies No Known Allergies Allergy (Verified 04/04/24 14:04) Medications ?Medication ?Instructions ?Recorded ?Confirmed ?Type ascorbic acid (vitamin C) 1,000 mg 500 mg PO BID SUPPLEMENT 10/28/16 04/04/24 History tablet cholecalciferol (vitamin D3) 50 2,000 unit PO QODAY SUPPLEMENT 11/11/18 04/04/24 History mcg (2,000 unit) capsule L.acidoph, paracasei,B. lactis 10 1 ea PO DAILY [facility] 03/21/19 04/04/24 History billion cell capsule magnesium oxide 400 mg (241.3 mg 400 mg PO DAILY SUPPLEMENT 03/21/19 04/04/24 History magnesium) tablet methenamine hippurate 1 gram tablet 1 g PO DAILY UTI PREVENTION 06/14/20 04/04/24 History HYDRO EYE 1 tab PO DAILY EYE HEALTH 06/21/20 04/04/24 History levothyroxine 25 mcg tablet 12.5 mcg PO QODAY THYROID 12/12/21 04/04/24 History vitamin B complex 1 cap PO DAILY SUPPLEMENT 06/17/22 04/04/24 History apixaban 5 mg tablet (Eliquis) 5 mg PO DAILY 08/03/23 04/04/24 History vitamin A 3,000 mcg (10,000 unit) 10,000 unit PO .COMPLEX SUPPLEMENT 08/03/23 04/04/24 History capsule metoprolol tartrate 25 mg tablet 25 mg PO BID BLOOD PRESSURE #180 12/14/23 04/04/24 Rx tabs losartan 25 mg tablet 25 mg PO BID #180 tabs 01/28/24 04/04/24 Rx Have you fallen in the past year?: No PFSH Medical History History of atrial fibrillation Incarcerated hernia Post-menopausal Chronic pain Rheumatoid arthritis CPAP (continuous positive airway pressure) dependence Sleep apnea Coronary artery disease Hypertension DVT (deep venous thrombosis) Presence of cardiac pacemaker 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 Non-rheumatic mitral regurgitation History of left heart catheterization (LHC) (~1989) History of cardioversion (~03/22/19) Essential hypertension History of CVA (cerebrovascular accident) (~2012) Ulcer of left lower extremity with fat layer exposed Open wound of left lower extremity with complication Chronic anticoagulation Hematoma of left lower extremity Paroxysmal atrial fibrillation Hyperlipidemia Surgical History S/P small bowel resection History of eye surgery (~10/2021) History of cardiac radiofrequency ablation (RFA) (~01/15/17) Family History Father CAD (coronary artery disease) Heart diseaseMother Heart disease Hypertension Asthma Social History household members: none Smoking Status: Former smoker how long ago did patient quit smoking: Smoked for 2 years as a teen alcohol intake: never substance use type: does not use caffeine: No HPI HPI HPI: Patient is an 83-year-old female here for both left inguinal hernia and abnormal CT showing gastric dilation. She does not feel that she is having any issues eating or drinking but her CT scan showed dilated stomach and esophagus with concern for gastric outlet obstruction. The patient also had a large left inguinal hernia containing small bowel on CT scan. She is not reporting many issues with this but she does have a large inguinal hernia. ROS General General: No weight change, appetite, fatigue, colon cancer, breast cancer or weakness HEENT HEENT: Yes difficulty swallowing; No eye injury, eye surgery, swollen glands or hoarseness Endo Endocrine: Yes thyroid disease; No diabetes mellitus, thyroid cancer, Hair loss, heat intolerance or cold intolerance Skin Skin: No rash or changing moles Breast Breast: No left breast lump, right breast lump, nipple discharge, breast pain, abnormal mammogram, abnormal US or breast enlargement Musc Musculoskeletal: No back problems, arthritis, rheumatoid arthritis, gout or joint pain Cardio Cardiovascular: Yes pacemaker, heart disease, atrial fibrillation and high blood pressure; No murmur, heart attack, heart stent, palpitations, shortness of breat with exertion or chest pain Psych Psychiatric: No depression, anxiety or hearing voices Resp Respiratory: No shortness of breath, No sleep apnea, Yes cough, No COPD, No asthma, No emphysema and No wheezing Gastro Gastrointestinal: No abdominal pain, No nausea or vomiting, No diarrhea, No constipation, No blood in stool, No acid reflux, No hemorrhoids, No ulcers, No gallbladder problem and No black,tarry stools Kris Hematologic: No blood thinners, No blood disorders, No bleeding, No anemia and No blood clots Neuro Neurologic: No system reviewed and no additional complaints, except as documented, No as per HPI, No abnormal gait, No abnormal hearing, No abnormal movements, No abnormal speech, No behavioral changes, No burning sensations, No confusion, No convulsions, No disequilibrium, No dizziness, No localized weakness, No frequent falls, No headache(s), No lack of coordination, No loss of vision, No memory loss, No numbness, No other visual disturbances, No radicular pain, No restless legs, No sensory deficit, No syncope, No tingling, No tremor(s), No weakness and No other Exam Const General: cooperative Orientation: alert and oriented x3 [facility] Head: normal to inspection Neck Neck: normal visual inspection and full ROM Chest Chest palpation & inspection: normal inspection of the chest Resp Effort & Inspection: normal respiratory effort Auscultation: clear to auscultation bilaterally Cardio Rate: regular rate Rhythm: regular rhythm GI Inspection: non-distended Palpation: soft, hernia indirect inguinal on the left and nontender Skin General: no rashes or lesions noted Neuro General: patient alert and patient oriented x3 Extrem General: full ROM Psych Appearance: grossly normal Mental Status: mental status grossly normal Assessment and Plan Assessment and Plan (1) Left inguinal hernia: Status: Acute Plan: Patient has a large left inguinal hernia containing small bowel. I did recommend repair as it is containing small bowel loops and it is at risk of obstruction or incarceration. The hernia is easily reducible. I recommended a robotic assisted repair. I discussed this with her in detail. I discussed the risks including but not limited to bleeding, infection, injury other organs, recurrence, mesh placement. I discussed all of postoperative care with her. Patient is willing to proceed in May. (2) Gastric outlet obstruction: Status: Acute Plan: Patient had dilation of her stomach and esophagus on CT scan recently. There was concern for gastric outlet obstruction and that her PCP sent her here for EGD to evaluate. I explained endoscopy in detail to the patient. I explained the risks including but not limited to stroke or heart attack with anesthesia, perforation of the GI tract, bleeding, infection. I explained that any of these could necessitate further emergency surgery. The patient understands and all questions were answered sufficiently. The patient wishes to proceed with procedure. Patient will hold her Eliquis prior to both procedures for 2 days Arben Joaquin MD Pager: [facility] [address] [place] [address] [address] [place] [address] Office: I have examined the patient and the H&P has been reviewed. There are no clinical changes since date of exam.
--- NOTE | 2024-05-20 11:02 | OP.EGD_ITS ---
Patient Name: Callie Perdomo Procedure Date: 05/20/2024 10:35 AM Date of : 1940 Age: 84 Procedure: Upper GI endoscopy Indications: Abnormal CT of the GI tract, possible gastric outlet obstruction Providers: Arben Joaquin MD Referring MD: Yaya Brandt MD Medicines: Propofol per Anesthesia Patient Profile: This is an 84 year old female. Refer to note in patient chart for documentation of history and physical. Complications: No immediate complications. Estimated blood loss: Minimal. Procedure: Pre-Anesthesia Assessment: - Prior to the procedure, a History and Physical was performed, and patient medications and allergies were reviewed. The patient's tolerance of previous anesthesia was also reviewed. The risks and benefits of the procedure and the sedation options and risks were discussed with the patient. All questions were answered, and informed consent was obtained. Prior Anticoagulants: The patient has taken Eliquis (apixaban), last dose was 2 days prior to procedure. ASA Grade Assessment: I - A normal, healthy patient. After reviewing the risks and benefits, the patient was deemed in satisfactory condition to undergo the procedure. After obtaining informed consent, the endoscope was passed under direct vision. Throughout the procedure, the patient's blood pressure, pulse, and oxygen saturations were monitored continuously. The Endoscope was introduced through the mouth, and advanced to the fourth part of duodenum. The upper GI endoscopy was accomplished without difficulty. The patient tolerated the procedure well. Scope In: 10:52:59 AM Scope Out: 10:55:15 AM Total Procedure Duration Time 0 hours 2 minutes 16 seconds Findings: Scattered mild inflammation with hemorrhage characterized by adherent blood was found in the stomach. The examined duodenum was normal. The esophagus was normal. Impression: - Gastritis with hemorrhage. - Normal examined duodenum. - Normal esophagus. - No specimens collected. Recommendation: - Discharge patient to home. - Resume previous diet. - Continue present medications. - Use Prilosec (omeprazole) 20 mg PO daily for 2 months. Procedure Code(s): --- Professional --- 59554, Esophagogastroduodenoscopy, flexible, transoral; diagnostic, including collection of specimen(s) by brushing or washing, when performed (separate procedure) Diagnosis Code(s): --- Professional --- K29.71, Gastritis, unspecified, with bleeding R93.3, Abnormal findings on diagnostic imaging of other parts of digestive tract CPT copyright 2021 [employer]. All rights reserved. The codes documented in this report are preliminary and upon rubber covering machine operator review may be revised to meet current compliance requirements. Arben Joaquin MD 05/20/2024 11:02:01 AM This report has been signed electronically. Number of Addenda: 0 Note Initiated On: 05/20/2024 10:35 AM
--- NOTE | 2024-05-20 11:02 | OP.CCLET_ITS ---
05/20/2024 Yaya Brandt MD [address] [place] [address] Re : Upper GI endoscopy procedure for Callie Perdomo Dear Dr. Brandt This procedure was performed on Monday, May 20, 2024. My impressions and recommendations are as follows: Impressions : - Gastritis with hemorrhage. - Normal examined duodenum. - Normal esophagus. - No specimens collected. Recommendations : - Discharge patient to home. - Resume previous diet. - Continue present medications. - Use Prilosec (omeprazole) 20 mg PO daily for 2 months. My findings are described in the full procedure note, which is enclosed. If I can be of further assistance, please feel free to contact me at Doctor phone number(s): , Work: . Sincerely, Arben Joaquni MD 05/20/2024 11:02:01 AM This report has been signed electronically.
--- NOTE | 2024-05-20 11:06 | PCM.POST.ANE ---
Anesthesia: Postop Eval I Current Vital Signs Temperature: 97.6 F Pulse Rate: 81 Blood Pressure: 125/84 Respiratory Rate: 16 Pulse Ox: 97 Oxygen Delivery Method: Room Air Assessment Airway patent: Yes Spontaneous unlabored respirations: Yes Mental status: Asleep nausea: No Vomiting: No Anesthesia Complication: No Fluid Hydration Crystalloid volume administer (ml): 20 Total IV fluid infused: 20 Progress Note Anesthesia document: Postop Eval 1 completed: Yes
--- NOTE | 2024-05-20 11:50 | PCM.POSTANE2 ---
Anesthesia Postop Eval I Sum Postop Eval Completion status Anesthesia document: Postop Eval 1 completed: Yes Anesthesia Postop Eval I Summary Anesthesia Postop Eval I Summary: Anesthesia Postop Eval I: Assessment Summary Airway patent Yes 05/20/24 11:08 [email or web address] Spontaneous unlabored Yes 05/20/24 11:08 [email or web address] respirations Mental status Asleep 05/20/24 11:08 [email or web address] nausea No 05/20/24 11:08 [email or web address] Vomiting No 05/20/24 11:08 [email or web address] Anesthesia Postop Eval I: Fluid Summary Crystalloid volume administer 20 05/20/24 11:08 [email or web address] (ml) Colloids volume administered ( ml) Blood Product volume administered (ml) Total IV fluid infused 20 05/20/24 11:08 [email or web address] Anesthesia Postop Eval I: Summary Notes Anesthesia Complication No 05/20/24 11:08 [email or web address] Anesthesia Complication Comment: Post-operative progress note Anesthesia: Postop Eval II Evaluation Mental status: Awake Pain Level: 0 nausea: No Vomiting: No
== END 2024-05-20 12:02 | disposition home or self-care (01) ==
LOC: EN 09:38 → AC 09:39
PROVIDERS: PCP Family Medicine Geriatric Medicine; Referring Provider Family Medicine Geriatric Medicine; Visit Provider Surgery
PROC: 0DJ08ZZ Inspection of Upper Intestinal Tract, Via Natural or Artificial Opening Endoscopic (ICD-10-PCS; CPT 43235; principal; 2024-05-20 10:40)
DX: R93.3 Abnormal findings on diagnostic imaging of other parts of digestive tract (principal); I48.0 Paroxysmal atrial fibrillation; I10 Essential (primary) hypertension; K40.90 Unilateral inguinal hernia, without obstruction or gangrene, not specified as recurrent; Z87.891 Personal history of nicotine dependence; I25.10 Atherosclerotic heart disease of native coronary artery without angina pectoris; E78.5 Hyperlipidemia, unspecified; Z86.73 Personal history of transient ischemic attack (TIA), and cerebral infarction without residual deficits; Z79.01 Long term (current) use of 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s; Z95.0 Presence of cardiac pacemaker; G47.30 Sleep apnea, unspecified; Z99.89 Dependence on other enabling machines and devices; K31.1 Adult hypertrophic pyloric stenosis; K29.71 Gastritis, unspecified, with bleeding
CPT/HCPCS: 43235; A4216; J2405

== ENCOUNTER 2024-05-23 10:15 | Outpatient (RCR) | payer MEDICARE, OTHER, SELFPAY ==
[2024-04-24 00:47] VITALS: BP 142/70; PULSE 82; RESP 18; TEMP 36.7; BMI 27.6
[2024-04-25 10:20] VITALS: BP 147/92; PULSE 90; RESP 18; TEMP 36.5; BMI 27.6
--- NOTE | 2024-04-25 13:39 | PN.PCM_ITS ---
History of Present Illness Date of Service: 04/25/24 Chief Complaint: Left lateral leg ulcer that was initially caused by trauma from bumping leg on edge of car. History of Wound: Patient is 83 year female who presents for further evaluation of an ulcer on her left posterolateral leg. She initially bumped her leg on her car frame when removing something from her car on 05/22/24 and needed sutures to her left anterior leg. She then developed increased pain, swelling and a hematoma to her left leg and was seen in the ED very early on 05/27/23. She is on chronic anticoagulation for Afib, her INR was 5.3 at that time. She was discharged home with follow up with her PCP later that day. She returned to the ED via squad later that day after she experienced a large amount of bleeding. The hematoma was evacuated in the ED under sedation. She was admitted to the hospital and she required transfusion of 1 unit PRBC when her hemoglobin dropped from 11 to 6.9. She was transferred to [facility] for a little while. 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 She states she is doing well at home. Her daughter is helping her with her dressing changes. Wound care - Alix. She has a history of Afib, alf coagulation, mitral valve regurgitation, cardiac ablation, cardiac pace maker, DVT, HTN, hyperlipidemia, rheumatoid arthritis, cataract removal, and multiple wounds in the past. Wound cultures obtained 07/27/23 which were positive for Pseudomonas aeruginosa, MRSA, Corynebacterium striatum, and Anaerobic cocci. She was placed on Flagyl and finished them. She was placed on Levaquin and is tolerating them thus far. She was placed on Linezolid and stated she had some visual problems and stopped the antibiotic. Stopped the Clindamycin due severe heart burn. Re-cultured the ulcer on 08/25/23 and it was positive for Acinetobacter baumannii. Started her on Augmentin, which she has tolerated in the past. Arterial studies obtained 03/31/24 - Right GEOVANNA at digital level 0.92 (non compressible at posterior tib and dorsalis pedis). Left GEOVANNA 1.10. Triphasic Doppler waveforms are noted at ankle level bilaterally. Pulse-volume recordings appear satisfactory at all levels bilaterally. The resting right ankle-brachial index could not be determined due to the non-compressibility of the vasculature at ankle level on the right. The resting left ankle-brachial index is normal. Digital-brachial indices are normal bilaterally. There is evidence of arterial calcification at ankle level on the right. There is no evidence of significant arterial occlusive disease in the lower extremities bilaterally. Venous doppler obtained 03/31/24 - Deep veins of the lower extremities are bilaterally patent and compressible segmentally. There is no evidence of deep vein thrombosis on either side. The right sapheno-femoral junction is incompetent . The right great saphenous vein appears segmentally incompetent. The left great saphenous vein appears incompetent below the knee. The accessory saphenous vein in the right mid-thigh and mid-calf are incompetent. Chronic venous changes are noted in an accessory saphenous vein in the right calf. Today she denies fever, chills, nausea or vomiting. Her appetite is good. Patient was interested in advanced skin substitute grafts to help the ulcer to heal. She has had 10 applications of Theraskin. Progress of Wound: Left lateral leg ulcer is stable. Not much change. It is beefy pink. Had an in depth discussion about being referred for a skin graft. She still is not sure she wants further surgery. Objective Data Objective Data Vital Signs: Vital Signs Temp Pulse Resp BP 97.7 F L 90 18 147/92 H 04/25/24 10:20 04/25/24 10:20 04/25/24 10:20 04/25/24 10:20 Weight: 170 lb 12.573 oz Body Mass Index (BMI) 27.6 Charges/Coding Procedures Integumentary 111xxx-113xx: 03177 Humera subq tissue 20 sq cm/< Debridement Note Debridement Note Wound debrided: #3 - Left posterolateral leg ulcer cluster Laterality: Left Wound Grade/Stage: Grade III Type of Debridement: Excisional debridement Anesthesia Used: 5% Lidocaine Gel Depth: Down to and including healthy tissue and in the subcutaneous layer Percentage of wound debrided: 100 Instrument Used: 5mm curette Tissue Removed: subcutaneous tissue, senescent cells Severity: Fat Layer Exposed Amount of bleeding with debridement: Mild Bleeding Controlled with: Pressure and Compression and gauze Patient tolerated procedure: Patient tolerated procedure well Post-Debridement Measurements and Additional Note: Post-Debridement Measurements/Treatment MIKE - Nurse 1 - General Ulcer Assessment Start: 04/25/24 10:20 Freq: Status: Active Protocol: LAWRENCE Activity Type Activity Date Activity User E-sign Co-sign Detail Recorded Client Recorded Date Recorded By Document 04/25/24 10:20 JF [id number] 04/25/24 10:24 04/25/24 10:20 - Today's Visit Information Type of service Follow-up Visit (Physician/[employer] HELPER ) Arrival Mode Ambulatory Patient Identification Verified (Name & Yes ) Patient Requires Transmission-Based No Precautions Height and Weight Body Mass Index (BMI) 27.6 BMI Classification Overweight Vital Signs Temperature (97.8 F-99.1 F) 97.7 F L Temperature Source Temporal Pulse Rate (60-100) 90 Pulse Location Monitor Respiratory Rate (12-18) 18 Respiratory rate source Observation Blood Pressure (90/60-120/80) 147/92 H Blood Pressure Mean (mm Hg) 110 Source Monitor History Since Last Visit- (Skip if this is Patient's initial visit) Have you changed medications since your No last visit? Any new allergies or adverse reactions No Had a fall/change in ADL's that may No increase risk of falls Signs or symptoms of abuse and/or No neglect since last visit Have you been in the hospital since your No last visit? Has dressing in place as prescribed Yes Has compression in place as prescribed Yes Has offloadiing in place as prescribed N/A Experienced any changes in pain level or No management Left Footwear Regular Shoe Right Footwear Regular Shoe Pain Scale: 0-10 Numeric Is Patient Pain Free? Yes - Nurse 1 - General Ulcer Measurement Start: 04/25/24 10:20 Freq: Status: Active Protocol: Activity Type Activity Date Activity User E-sign Co-sign Detail Recorded Client Recorded Date Recorded By Document 04/25/24 10:20 JF [id number] 04/25/24 10:24 JF 04/25/24 10:20 Wound Center Nurse 1 #3 L Calf cluster -Current Size (cm) - Length 1.7 -Current Size (cm) - Width 1.9 -Current Size (cm) - Depth 0.2 -Total Square Cm 3.23 -Exudate Amt Medium -Exudate Type Serosanguineous -Wound Margin Distinct, Outline Attached -Granulation Amt Large (67-100%) -Granulation Quality Red -Necrosis Amt None Present (0 %) -Structure Exposed N/A -Texture (Karen-wound Skin Appearance) No Abnormality -Moisture (Karen-wound Skin Appearance) No Abnormality -Color (Karen-wound Skin Appearance) No Abnormality -Temperature (Karen-wound Skin No Abnormality Appearance) (Pt Warm) -Ulcer Cleansing Soap and Water -Foul Odor after Cleansing No -Anesthetic Used 5% Lidocaine Gel Left Calf (cm) 37.5 Left Ankle (cm) 20.6 WC - Nurse 2 - General Ulcer CM Notes Start: 04/25/24 10:20 Freq: Status: Active Protocol: Activity Type Activity Date Activity User E-sign Co-sign Detail Recorded Client Recorded Date Recorded By Document 04/25/24 10:31 JF [id number] 04/25/24 10:35 JF 04/25/24 10:31 Wound Center Nurse 2 #3 L Calf cluster -Time 10:31 -Correct Patient Yes -Correct Side, Site, Position Yes -Correct Procedure Yes -Procedure Performed Yes -Type of Procedure Debridement -Clinical Debridement Subcutaneous -Tissue Removed Subcutaneous -Post Debridement (cm) - Length 3.0 -Post Debridement (cm) - Width 2.0 -Post Debridement (cm) - Depth 0.2 -Total Square (Post) (cm) 6.00 -Area of Debridement (cm) - Length 3.0 -Area of Debridement (cm) - Width 2.0 -Total Square (Area) (cm) 6.00 -Tunneling No -Undermining/Tunneling No -Circular Undermining No -Wound/Ulcer Outcome Not Healed -Ulcer Cleansing Rinsed/ Irrigated with Saline -Foul Odor after Cleansing No -Bioengineered Tissue No -Bleeding Controlled with Pressure -Treatment Response Procedure Tolerated Well -Offloading No -Debridement - Subq, 1st 20sq cm Yes Pain Scale: 0-10 Numeric Is Patient Pain Free? Yes - Nurse 3 - General Ulcer D/C NN Start: 04/25/24 10:20 Freq: Status: Active Protocol: Activity Type Activity Date Activity User E-sign Co-sign Detail Recorded Client Recorded Date Recorded By Document 04/25/24 10:59 DL [id number] 04/25/24 11:01 DL 04/25/24 10:59 Wound Care Center Nurse 3 #3 L Calf cluster -Ulcer Cleansing Rinsed/ Irrigated with Saline -Foul Odor after Cleansing No -Primary Dressing Applied Optilok 6.5x10 -Other Dressing alix -Primary Dressing Covered/Secured with Dry Gauze & Roll Gauze -Optilok 6.5x10 1 Left -Multi-Layered Wrap Application Multi-Layer Comp - Left ($) Treatment Response Procedure Tolerated Well Pain Scale: 0-10 Numeric Is Patient Pain Free? 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: CODE(S): L97.902 - Non-pressure chronic ulcer of unspecified part of unspecified lower leg with fat layer exposed QUALIFIERS: Laterality: left Qualified Code(s): L97.922 - Non- pressure chronic ulcer of unspecified part of left lower leg with fat layer exposed (2) Contusion of left lower leg, sequela: CODE(S): S80.12XS - Contusion of left lower leg, sequela (3) Hematoma: CODE(S): T14.8XXA - Other injury of unspecified body region, initial encounter (4) Chronic anticoagulation: 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 Wound care - Continue Alix cover with ABD/superabsorber. 3M 2 layer wrap for compression. She will leave this in place. It is not to get wet. She will come back on or Thursday for a nurse's visit to have the 3 M 2 layer wrap change and to assess that she is tolerating it well. She will follow up in one week with me. Encouraged protein supplementation to help with wound healing. She has been using Daniel. Encouraged her to consider being referred for an evaluation for a skin graft. She states that she will think about it.
[2024-04-29 12:06] VITALS: BP 150/91; PULSE 84; RESP 18; TEMP 35.9; BMI 27.6
[2024-05-02 10:03] VITALS: BP 152/82; PULSE 90; RESP 18; TEMP 35.4; BMI 27.6
--- NOTE | 2024-05-02 14:21 | PCM.WC.PN ---
History of Present Illness Date of Service: 05/02/24 Chief Complaint: Left lateral leg ulcer that was initially caused by trauma from bumping leg on edge of car. History of Wound: Patient is 83 year female who presents for further evaluation of an ulcer on her left posterolateral leg. She initially bumped her leg on her car frame when removing something from her car on 05/22/24 and needed sutures to her left anterior leg. She then developed increased pain, swelling and a hematoma to her left leg and was seen in the ED very early on 05/27/23. She is on chronic anticoagulation for Afib, her INR was 5.3 at that time. She was discharged home with follow up with her PCP later that day. She returned to the ED via squad later that day after she experienced a large amount of bleeding. The hematoma was evacuated in the ED under sedation. She was admitted to the hospital and she required transfusion of 1 unit PRBC when her hemoglobin dropped from 11 to 6.9. She was transferred to [facility] for a little while. She comes in today for further evaluation of her left posterolateral leg ulcer from a hematoma. She states she is doing well at home. Her daughter is helping her with her dressing changes. Wound care - Alix. 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 Wound cultures obtained 07/27/23 which were positive for Pseudomonas aeruginosa, MRSA, Corynebacterium striatum, and Anaerobic cocci. She was placed on Flagyl and finished them. She was placed on Levaquin and is tolerating them thus far. She was placed on Linezolid and stated she had some visual problems and stopped the antibiotic. Stopped the Clindamycin due severe heart burn. Re-cultured the ulcer on 08/25/23 and it was positive for Acinetobacter baumannii. Started her on Augmentin, which she has tolerated in the past. Arterial studies obtained 03/31/24 - Right GEOVANNA at digital level 0.92 (non compressible at posterior tib and dorsalis pedis). Left GEOVANNA 1.10. Triphasic Doppler waveforms are noted at ankle level bilaterally. Pulse-volume recordings appear satisfactory at all levels bilaterally. The resting right ankle-brachial index could not be determined due to the non-compressibility of the vasculature at ankle level on the right. The resting left ankle-brachial index is normal. Digital-brachial indices are normal bilaterally. There is evidence of arterial calcification at ankle level on the right. There is no evidence of significant arterial occlusive disease in the lower extremities bilaterally. Venous doppler obtained 03/31/24 - Deep veins of the lower extremities are bilaterally patent and compressible segmentally. There is no evidence of deep vein thrombosis on either side. The right sapheno-femoral junction is incompetent . The right great saphenous vein appears segmentally incompetent. The left great saphenous vein appears incompetent below the knee. The accessory saphenous vein in the right mid-thigh and mid-calf are incompetent. Chronic venous changes are noted in an accessory saphenous vein in the right calf. Today she denies fever, chills, nausea or vomiting. Her appetite is good. Patient was interested in advanced skin substitute grafts to help the ulcer to heal. She has had 10 applications of Theraskin. Progress of Wound: Left lateral leg ulcer is smaller. The wound bed is nice beefy pink color. Her edges are not as pronounced this week as they have been in the past. She tolerated the 3 M 2 layer wraps on her left leg and she has much less edema present. Objective Data Objective Data Vital Signs: Vital Signs Temp Pulse Resp BP O2 Del Method 95.7 F L 90 18 152/82 H Room Air 05/02/24 10:03 05/02/24 10:03 05/02/24 10:03 05/02/24 10:03 05/02/24 10:03 Oxygen Delivery Method Room Air Weight: 170 lb 12.573 oz Body Mass Index (BMI) 27.6 Charges/Coding Procedures Integumentary 111xxx-113xx: 75474 Humera subq tissue 20 sq cm/< Debridement Note Debridement Note Wound debrided: #3 - Left posterolateral leg ulcer cluster Laterality: Left Wound Grade/Stage: Grade III Type of Debridement: Excisional debridement Anesthesia Used: 5% Lidocaine Gel Depth: Down to and including healthy tissue and in the subcutaneous layer Percentage of wound debrided: 100 Instrument Used: 5mm curette Tissue Removed: subcutaneous tissue, senescent cells Severity: Fat Layer Exposed Amount of bleeding with debridement: Mild Bleeding Controlled with: Pressure and Compression and gauze Patient tolerated procedure: Patient tolerated procedure well Post-Debridement Measurements and Additional Note: Post-Debridement Measurements/Treatment WC - Nurse 1 - General Ulcer Assessment Start: 04/25/24 10:20 Freq: Status: Active Protocol: LAWRENCE Activity Type Activity Date Activity User E-sign Co-sign Detail Recorded Client Recorded Date Recorded By Document 04/25/24 10:20 JF [id number] 04/25/24 10:24 JF Document 04/29/24 12:06 DS [id number] 04/29/24 12:07 DS Document 05/02/24 10:03 KW [id number] 05/02/24 10:17 KW 04/25/24 04/29/24 05/02/24 10:20 12:06 10:03 WC - Today's Visit Information Type of service Follow-up Visit Nurse-only Follow-up Visit (Physician/LABORER/GRADE CHECK Visit (Physician/LABORER/GRADE CHECK ) ) Arrival Mode Ambulatory Ambulatory Ambulatory Patient Identification Verified (Name & Yes Yes Yes ) Patient Requires Transmission-Based No No Precautions Safety Precautions Fall Prevention Height and Weight Body Mass Index (BMI) 27.6 27.6 27.6 BMI Classification Overweight Overweight Overweight Vital Signs Temperature (97.8 F-99.1 F) 97.7 F L 96.7 F L 95.7 F L Temperature Source Temporal Temporal Temporal Pulse Rate (60-100) 90 84 90 Pulse Location Monitor Monitor Monitor Respiratory Rate (12-18) 18 18 18 Respiratory rate source Observation Observation Observation Oxygen Delivery Method Room Air Room Air Blood Pressure (90/60-120/80) 147/92 H 150/91 H 152/82 H Blood Pressure Mean (mm Hg) 110 110 105 Source Monitor Monitor Monitor Position Sitting Semi-Fowlers Blood Pressure Location Left Arm Left Arm History Since Last Visit- (Skip if this is Patient's initial visit) Have you changed medications since your No No last visit? Any new allergies or adverse reactions No No Had a fall/change in ADL's that may No No increase risk of falls Signs or symptoms of abuse and/or No No neglect since last visit Have you been in the hospital since your No No last visit? Has dressing in place as prescribed Yes Yes Has compression in place as prescribed Yes Yes Has offloadiing in place as prescribed N/A N/A Experienced any changes in pain level or No No management Left Footwear Regular Shoe Regular Shoe Right Footwear Regular Shoe Regular Shoe Pain Scale: 0-10 Numeric Is Patient Pain Free? Yes Yes Yes - Nurse 1 - General Ulcer Measurement Start: 04/25/24 10:20 Freq: Status: Active Protocol: Activity Type Activity Date Activity User E-sign Co-sign Detail Recorded Client Recorded Date Recorded By Document 04/25/24 10:20 [id number] 04/25/24 10:24 Document 05/02/24 10:03 BARBARA [id number] 05/02/24 10:17 04/25/24 05/02/24 10:20 10:03 Wound Center Nurse 1 #3 L Calf cluster -Current Size (cm) - Length 1.7 1.7 -Current Size (cm) - Width 1.9 2 -Current Size (cm) - Depth 0.2 0.2 -Total Square Cm 3.23 3.4 -Date of Last Picture (Recall this 05/02/24 field) -Exudate Amt Medium Small -Exudate Type Serosanguineous Serosanguineous -Wound Margin Distinct, Distinct, Outline Outline Attached Attached -Granulation Amt Large (67-100%) Large (67-100%) -Granulation Quality Red Red -Necrosis Amt None Present (0 %) -Structure Exposed N/A -Texture (Karen-wound Skin Appearance) No Abnormality Assessed -Moisture (Karen-wound Skin Appearance) No Abnormality Assessed -Color (Karen-wound Skin Appearance) No Abnormality Assessed -Temperature (Karen-wound Skin No Abnormality No Abnormality Appearance) (Pt Warm) (Pt Warm) -Tenderness on Palpation (Karen-wound No Skin Appearance) -Ulcer Cleansing Soap and Water Soap and Water -Foul Odor after Cleansing No No -Anesthetic Used 5% Lidocaine 5% Lidocaine Gel Gel Left Calf (cm) 37.5 36 Left Ankle (cm) 20.6 19.5 - Nurse 2 - General Ulcer CM Notes Start: 04/25/24 10:20 Freq: Status: Active Protocol: Activity Type Activity Date Activity User E-sign Co-sign Detail Recorded Client Recorded Date Recorded By Document 04/25/24 10:31 [id number] 04/25/24 10:35 Document 05/02/24 10:49 TERRY [id number] 05/02/24 10:51 04/25/24 05/02/24 10:31 10:49 Wound Center Nurse 2 #3 L Calf cluster -Time 10:31 10:49 -Correct Patient Yes Yes -Correct Side, Site, Position Yes Yes -Correct Procedure Yes Yes -Procedure Performed Yes Yes -Type of Procedure Debridement Debridement -Clinical Debridement Subcutaneous Subcutaneous -Tissue Removed Subcutaneous Subcutaneous -Post Debridement (cm) - Length 3.0 2.8 -Post Debridement (cm) - Width 2.0 1.7 -Post Debridement (cm) - Depth 0.2 0.1 -Total Square (Post) (cm) 6.00 4.76 -Area of Debridement (cm) - Length 3.0 2.8 -Area of Debridement (cm) - Width 2.0 1.7 -Total Square (Area) (cm) 6.00 4.76 -Tunneling No No -Undermining/Tunneling No No -Circular Undermining No No -Wound/Ulcer Outcome Not Healed Not Healed -Ulcer Cleansing Rinsed/ Rinsed/ Irrigated with Irrigated with Saline Saline -Foul Odor after Cleansing No No -Bioengineered Tissue No No -Bleeding Controlled with Pressure Pressure -Treatment Response Procedure Procedure Tolerated Well Tolerated Well -Offloading No No -Debridement - Subq, 1st 20sq cm Yes Yes Pain Scale: 0-10 Numeric Is Patient Pain Free? Yes Yes WC - Nurse 3 - General Ulcer D/C NN Start: 04/25/24 10:20 Freq: Status: Active Protocol: Activity Type Activity Date Activity User E-sign Co-sign Detail Recorded Client Recorded Date Recorded By Document 04/25/24 10:59 DL [id number] 04/25/24 11:01 DL Document 04/29/24 12:07 DS [id number] 04/29/24 12:24 DS Document 05/02/24 11:11 KW [id number] 05/02/24 11:12 KW 04/25/24 04/29/24 05/02/24 10:59 12:07 11:11 Wound Care Center Nurse 3 #3 L Calf cluster -Ulcer Cleansing Rinsed/ Soap and Water Rinsed/ Irrigated with Irrigated with Saline Saline -Foul Odor after Cleansing No -Primary Dressing Applied Optilok 6.5x10 Optilok 8x12, Optilok 6.5x10 Promogran Alix Matter -Other Dressing alix pt own alix -Primary Dressing Covered/Secured with Dry Gauze & Dry Gauze & Roll Gauze Roll Gauze, Secured with Tape -Optilok 6.5x10 1 1 -Optilok 8x12 1 -Promogran Alix Matter 0 Left -Lotion applied to leg before Yes compression wrap -Multi-Layered Wrap Application Multi-Layer Multi-Layer Multi-Layer Comp - Left ($) Comp - Left ($) Comp - Left ($) Treatment Response Procedure Tolerated Well Pain Scale: 0-10 Numeric Is Patient Pain Free? 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 Wound care - Continue Alix cover with ABD/superabsorber. 3M 2 layer wrap for compression. She will leave this in place. It is not to get wet. She will follow up in one week with me. Instructed her to come in sooner if the wrap starts to slide down. Encouraged protein supplementation to help with wound healing. She has been using Daniel. Encouraged her to consider being referred for an evaluation for a skin graft. She states that she will think about it.
--- NOTE | 2024-05-03 14:39 | WC ---
PHOTO 05/02/24 LEFT CALF CLUSTER
[2024-05-09 10:09] VITALS: BP 156/89; PULSE 90; RESP 16; TEMP 35.8; BMI 27.6
--- NOTE | 2024-05-09 10:45 | PCM.WC.PN ---
History of Present Illness Date of Service: 05/09/24 Chief Complaint: Left lateral leg ulcer that was initially caused by trauma from bumping leg on edge of car. History of Wound: Patient is 83 year female who presents for further evaluation of an ulcer on her left posterolateral leg. She initially bumped her leg on her car frame when removing something from her car on 05/22/24 and needed sutures to her left anterior leg. She then developed increased pain, swelling and a hematoma to her left leg and was seen in the ED very early on 05/27/23. She is on chronic anticoagulation for Afib, her INR was 5.3 at that time. She was discharged home with follow up with her PCP later that day. She returned to the ED via squad later that day after she experienced a large amount of bleeding. The hematoma was evacuated in the ED under sedation. She was admitted to the hospital and she required transfusion of 1 unit PRBC when her hemoglobin dropped from 11 to 6.9. She was transferred to [facility] for a little while. She comes in today for further evaluation of her left posterolateral leg ulcer from a hematoma. She states she is doing well at home. Her daughter is helping her with her dressing changes. Wound care - Alix. 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 Wound cultures obtained 07/27/23 which were positive for Pseudomonas aeruginosa, MRSA, Corynebacterium striatum, and Anaerobic cocci. She was placed on Flagyl and finished them. She was placed on Levaquin and is tolerating them thus far. She was placed on Linezolid and stated she had some visual problems and stopped the antibiotic. Stopped the Clindamycin due severe heart burn. Re-cultured the ulcer on 08/25/23 and it was positive for Acinetobacter baumannii. Started her on Augmentin, which she has tolerated in the past. Arterial studies obtained 03/31/24 - Right GEOVANNA at digital level 0.92 (non compressible at posterior tib and dorsalis pedis). Left GEOVANNA 1.10. Triphasic Doppler waveforms are noted at ankle level bilaterally. Pulse-volume recordings appear satisfactory at all levels bilaterally. The resting right ankle-brachial index could not be determined due to the non-compressibility of the vasculature at ankle level on the right. The resting left ankle-brachial index is normal. Digital-brachial indices are normal bilaterally. There is evidence of arterial calcification at ankle level on the right. There is no evidence of significant arterial occlusive disease in the lower extremities bilaterally. Venous doppler obtained 03/31/24 - Deep veins of the lower extremities are bilaterally patent and compressible segmentally. There is no evidence of deep vein thrombosis on either side. The right sapheno-femoral junction is incompetent . The right great saphenous vein appears segmentally incompetent. The left great saphenous vein appears incompetent below the knee. The accessory saphenous vein in the right mid-thigh and mid-calf are incompetent. Chronic venous changes are noted in an accessory saphenous vein in the right calf. Today she denies fever, chills, nausea or vomiting. Her appetite is good. Patient was interested in advanced skin substitute grafts to help the ulcer to heal. She has had 10 applications of Theraskin. Progress of Wound: Left lateral leg ulcer is smaller. The wound bed is nice beefy pink color. She is tolerating the 3 M 2 layer wraps on her left leg the edema has greatly improved. She continues to have +3 edema on her right lower extremity. Objective Data Objective Data Vital Signs: Vital Signs Temp Pulse Resp BP O2 Del Method 96.5 F L 90 16 156/89 H Room Air 05/09/24 10:09 05/09/24 10:09 05/09/24 10:09 05/09/24 10:05/09/24 10:09 Oxygen Delivery Method Room Air Weight: 170 lb 12.573 oz Body Mass Index (BMI) 27.6 Charges/Coding Procedures Integumentary 111xxx-113xx: [id number] Humera subq tissue 20 sq cm/< Debridement Note Debridement Note Wound debrided: #3 - Left posterolateral leg ulcer cluster Laterality: Left Wound Grade/Stage: Grade III Type of Debridement: Excisional debridement Anesthesia Used: 5% Lidocaine Gel Depth: Down to and including healthy tissue and in the subcutaneous layer Percentage of wound debrided: 100 Instrument Used: 5mm curette Tissue Removed: subcutaneous tissue, senescent cells Severity: Fat Layer Exposed Amount of bleeding with debridement: Mild Bleeding Controlled with: Pressure and Compression and gauze Patient tolerated procedure: Patient tolerated procedure well Post-Debridement Measurements and Additional Note: Post-Debridement Measurements/Treatment WC - Nurse 1 - General Ulcer Assessment Start: 04/25/24 10:20 Freq: Status: Active Protocol: MIKE.[email or web address] Activity Type Activity Date Activity User E-sign Co-sign Detail Recorded Client Recorded Date Recorded By Document 04/25/24 10:20 JF [id number] 04/25/24 10:24 JF Document 04/29/24 12:06 DS [id number] 04/29/24 12:07 DS Document 05/02/24 10:03 KW [id number] 05/02/24 10:17 KW Document 05/09/24 10:09 ML [id number] 05/09/24 10:14 ML 04/25/24 04/29/24 05/02/24 10:20 12:06 10:03 WC - Today's Visit Information Type of service Follow-up Visit Nurse-only Follow-up Visit (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 Visit (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 ) ) Arrival Mode Ambulatory Ambulatory Ambulatory Patient Identification Verified (Name & Yes Yes Yes ) Patient Requires Transmission-Based No No Precautions Safety Precautions Fall Prevention Height and Weight Body Mass Index (BMI) 27.6 27.6 27.6 BMI Classification Overweight Overweight Overweight Vital Signs Temperature (97.8 F-99.1 F) 97.7 F L 96.7 F L 95.7 F L Temperature Source Temporal Temporal Temporal Pulse Rate (60-100) 90 84 90 Pulse Location Monitor Monitor Monitor Respiratory Rate (12-18) 18 18 18 Respiratory rate source Observation Observation Observation Oxygen Delivery Method Room Air Room Air Blood Pressure (90/60-120/80) 147/92 H 150/91 H 152/82 H Blood Pressure Mean (mm Hg) 110 110 105 Source Monitor Monitor Monitor Position Sitting Semi-Fowlers Blood Pressure Location Left Arm Left Arm History Since Last Visit- (Skip if this is Patient's initial visit) Have you changed medications since your No No last visit? Any new allergies or adverse reactions No No Had a fall/change in ADL's that may No No increase risk of falls Signs or symptoms of abuse and/or No No neglect since last visit Have you been in the hospital since your No No last visit? Has dressing in place as prescribed Yes Yes Has compression in place as prescribed Yes Yes Has offloadiing in place as prescribed N/A N/A Experienced any changes in pain level or No No management Left Footwear Regular Shoe Regular Shoe Right Footwear Regular Shoe Regular Shoe Pain Scale: 0-10 Numeric Is Patient Pain Free? 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 ) Arrival Mode Ambulatory Patient Identification Verified (Name & Yes ) Patient Requires Transmission-Based Precautions Safety Precautions Height and Weight Body Mass Index (BMI) 27.6 BMI Classification Overweight Vital Signs Temperature (97.8 F-99.1 F) 96.5 F L Temperature Source Temporal Pulse Rate (60-100) 90 Pulse Location Monitor Respiratory Rate (12-18) 16 Respiratory rate source Observation Oxygen Delivery Method Room Air Blood Pressure (90/60-120/80) 156/89 H Blood Pressure Mean (mm Hg) 111 Source Monitor Position Semi-Fowlers Blood Pressure Location Left Arm History Since Last Visit- (Skip if this is Patient's initial visit) Have you changed medications since your No last visit? Any new allergies or adverse reactions No Had a fall/change in ADL's that may No increase risk of falls Signs or symptoms of abuse and/or No neglect since last visit Have you been in the hospital since your No last visit? Has dressing in place as prescribed Yes Has compression in place as prescribed Yes Has offloadiing in place as prescribed N/A Experienced any changes in pain level or No management Left Footwear Regular Shoe Right Footwear Regular Shoe Pain Scale: 0-10 Numeric Is Patient Pain Free? Yes - Nurse 1 - General Ulcer Measurement Start: 04/25/24 10:20 Freq: Status: Active Protocol: Activity Type Activity Date Activity User E-sign Co-sign Detail Recorded Client Recorded Date Recorded By Document 04/25/24 10:20 JF [id number] 04/25/24 10:24 JF Document 05/02/24 10:03 KW [id number] 05/02/24 10:17 KW Document 05/09/24 10:09 ML [id number] 05/09/24 10:14 ML 04/25/24 05/02/24 05/09/24 10:20 10:03 10:09 Wound Center Nurse 1 #3 L Calf cluster -Current Size (cm) - Length 1.7 1.7 1.8 -Current Size (cm) - Width 1.9 2 2.2 -Current Size (cm) - Depth 0.2 0.2 0.1 -Total Square Cm 3.23 3.4 3.96 -Date of Last Picture (Recall this 05/02/24 field) -Exudate Amt Medium Small Small -Exudate Type Serosanguineous Serosanguineous Serosanguineous -Wound Margin Distinct, Distinct, Distinct, Outline Outline Outline Attached Attached Attached -Granulation Amt Large (67-100%) Large (67-100%) Large (67-100%) -Granulation Quality Red Red Red -Necrosis Amt None Present (0 %) -Structure Exposed N/A -Texture (Karen-wound Skin Appearance) No Abnormality Assessed Assessed -Moisture (Karen-wound Skin Appearance) No Abnormality Assessed Assessed -Color (Karen-wound Skin Appearance) No Abnormality Assessed Assessed -Temperature (Karen-wound Skin No Abnormality No Abnormality No Abnormality Appearance) (Pt Warm) (Pt Warm) (Pt Warm) -Tenderness on Palpation (Karen-wound No No Skin Appearance) -Ulcer Cleansing Soap and Water Soap and Water Soap and Water -Foul Odor after Cleansing No No -Anesthetic Used 5% Lidocaine 5% Lidocaine 5% Lidocaine Gel Gel Gel Left Calf (cm) 37.5 36 Left Ankle (cm) 20.6 19.5 WC - Nurse 2 - General Ulcer CM Notes Start: 04/25/24 10:20 Freq: Status: Active Protocol: Activity Type Activity Date Activity User E-sign Co-sign Detail Recorded Client Recorded Date Recorded By Document 04/25/24 10:31 [id number] 04/25/24 10:35 Document 05/02/24 10:49 [id number] 05/02/24 10:51 Document 05/09/24 10:32 [id number] 05/09/24 10:35 04/25/24 05/02/24 05/09/24 10:31 10:49 10:32 Wound Center Nurse 2 #3 L Calf cluster -Time 10:31 10:49 10:32 -Correct Patient Yes Yes Yes -Correct Side, Site, Position Yes Yes Yes -Correct Procedure Yes Yes Yes -Procedure Performed Yes Yes Yes -Type of Procedure Debridement Debridement Debridement -Clinical Debridement Subcutaneous Subcutaneous Subcutaneous -Tissue Removed Subcutaneous Subcutaneous Subcutaneous -Post Debridement (cm) - Length 3.0 2.8 2.4 -Post Debridement (cm) - Width 2.0 1.7 1.7 -Post Debridement (cm) - Depth 0.2 0.1 0.1 -Total Square (Post) (cm) 6.00 4.76 4.08 -Area of Debridement (cm) - Length 3.0 2.8 2.4 -Area of Debridement (cm) - Width 2.0 1.7 1.7 -Total Square (Area) (cm) 6.00 4.76 4.08 -Tunneling No No No -Undermining/Tunneling No No No -Circular Undermining No No No -Wound/Ulcer Outcome Not Healed Not Healed Not Healed -Ulcer Cleansing Rinsed/ Rinsed/ Rinsed/ Irrigated with Irrigated with Irrigated with Saline Saline Saline -Foul Odor after Cleansing No No No -Bioengineered Tissue No No No -Bleeding Controlled with Pressure Pressure Pressure -Treatment Response Procedure Procedure Procedure Tolerated Well Tolerated Well Tolerated Well -Offloading No No No -Debridement - Subq, 1st 20sq cm Yes Yes Yes Pain Scale: 0-10 Numeric Is Patient Pain Free? Yes Yes Yes WC - Nurse 3 - General Ulcer D/C NN Start: 04/25/24 10:20 Freq: Status: Active Protocol: Activity Type Activity Date Activity User E-sign Co-sign Detail Recorded Client Recorded Date Recorded By Document 04/25/24 10:59 DL [id number] 04/25/24 11:01 DL Document 04/29/24 12:07 DS [id number] 04/29/24 12:24 DS Document 05/02/24 11:11 KW [id number] 05/02/24 11:12 KW 04/25/24 04/29/24 05/02/24 10:59 12:07 11:11 Wound Care Center Nurse 3 #3 L Calf cluster -Ulcer Cleansing Rinsed/ Soap and Water Rinsed/ Irrigated with Irrigated with Saline Saline -Foul Odor after Cleansing No -Primary Dressing Applied Optilok 6.5x10 Optilok 8x12, Optilok 6.5x10 Promogran Alix Matter -Other Dressing alix pt own alix -Primary Dressing Covered/Secured with Dry Gauze & Dry Gauze & Roll Gauze Roll Gauze, Secured with Tape -Optilok 6.5x10 1 1 -Optilok 8x12 1 -Promogran Alix Matter 0 Left -Lotion applied to leg before Yes compression wrap -Multi-Layered Wrap Application Multi-Layer Multi-Layer Multi-Layer Comp - Left ($) Comp - Left ($) Comp - Left ($) Treatment Response Procedure Tolerated Well Pain Scale: 0-10 Numeric Is Patient Pain Free? 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 Wound care - Continue Alix cover with ABD/superabsorber. 3M 2 layer wrap for compression on the left leg. She wears a single tubigrip on the right lower extremity. Offered her a 3M 2 layer wrap to the left leg to help decrease her edema. She states she will start wearing a double tubigrip for compression to the right leg. She will leave the 3M 2 layer wrap on the left in place. It is not to get wet. She will follow up in one week with me. Instructed her to come in sooner if the wrap starts to slide down. Encouraged protein supplementation to help with wound healing. She has been using Daniel. Encouraged her to consider being referred for an evaluation for a skin graft. She states that she will think about it.
--- NOTE | 2024-05-09 13:08 | PN.PCM_ITS ---
History of Present Illness Date of Service: 05/09/24 Chief Complaint: Left lateral leg ulcer that was initially caused by trauma from bumping leg on edge of car. History of Wound: Patient is 83 year female who presents for further evaluation of an ulcer on her left posterolateral leg. She initially bumped her leg on her car frame when removing something from her car on 05/22/24 and needed sutures to her left anterior leg. She then developed increased pain, swelling and a hematoma to her left leg and was seen in the ED very early on 05/27/23. She is on chronic anticoagulation for Afib, her INR was 5.3 at that time. She was discharged home with follow up with her PCP later that day. She returned to the ED via squad later that day after she experienced a large amount of bleeding. The hematoma was evacuated in the ED under sedation. She was admitted to the hospital and she required transfusion of 1 unit PRBC when her hemoglobin dropped from 11 to 6.9. She was transferred to [facility] for a little while. 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 She states she is doing well at home. Her daughter is helping her with her dressing changes. Wound care - Alix. 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 Wound cultures obtained 07/27/23 which were positive for Pseudomonas aeruginosa, MRSA, Corynebacterium striatum, and Anaerobic cocci. She was placed on Flagyl and finished them. She was placed on Levaquin and is tolerating them thus far. She was placed on Linezolid and stated she had some visual problems and stopped the antibiotic. Stopped the Clindamycin due severe heart burn. Re-cultured the ulcer on 08/25/23 and it was positive for Acinetobacter baumannii. Started her on Augmentin, which she has tolerated in the past. Arterial studies obtained 03/31/24 - Right GEOVANNA at digital level 0.92 (non compressible at posterior tib and dorsalis pedis). Left GEOVANNA 1.10. Triphasic Doppler waveforms are noted at ankle level bilaterally. Pulse-volume recordings appear satisfactory at all levels bilaterally. The resting right ankle-brachial index could not be determined due to the non-compressibility of the vasculature at ankle level on the right. The resting left ankle-brachial index is normal. Digital-brachial indices are normal bilaterally. There is evidence of arterial calcification at ankle level on the right. There is no evidence of significant arterial occlusive disease in the lower extremities bilaterally. Venous doppler obtained 03/31/24 - Deep veins of the lower extremities are bilaterally patent and compressible segmentally. There is no evidence of deep vein thrombosis on either side. The right sapheno-femoral junction is incompetent . The right great saphenous vein appears segmentally incompetent. The left great saphenous vein appears incompetent below the knee. The accessory saphenous vein in the right mid-thigh and mid-calf are incompetent. Chronic venous changes are noted in an accessory saphenous vein in the right calf. Today she denies fever, chills, nausea or vomiting. Her appetite is good. Patient was interested in advanced skin substitute grafts to help the ulcer to heal. She has had 10 applications of Theraskin. Progress of Wound: Left lateral leg ulcer is smaller. The wound bed is nice beefy pink color. She is tolerating the 3 M 2 layer wraps on her left leg the edema has greatly improved. She continues to have +3 edema on her right lower extremity. Objective Data Objective Data Vital Signs: Vital Signs Temp Pulse Resp BP O2 Del Method 96.5 F L 90 16 156/89 H Room Air 05/09/24 10:05/09/24 10:09 05/09/24 10:05/09/24 10:05/09/24 10:09 Oxygen Delivery Method Room Air Weight: 170 lb 12.573 oz Body Mass Index (BMI) 27.6 Debridement Note Debridement Note Post-Debridement Measurements and Additional Note: Post-Debridement Measurements/Treatment WC - Nurse 1 - General Ulcer Assessment Start: 04/25/24 10:20 Freq: Status: Active Protocol: [place] Activity Type Activity Date Activity User E-sign Co-sign Detail Recorded Client Recorded Date Recorded By Document 04/25/24 10:20 JF [id number] 04/25/24 10:24 JF Document 04/29/24 12:06 DS [id number] 04/29/24 12:07 DS Document 05/02/24 10:03 KW [id number] 05/02/24 10:17 KW Document 05/09/24 10:09 ML [id number] 05/09/24 10:14 ML 04/25/24 04/29/24 05/02/24 10:20 12:06 10:03 - Today's Visit Information Type of service Follow-up Visit Nurse-only Follow-up Visit (Physician/HOOP MAKER Visit (Physician/HOOP MAKER ) ) Arrival Mode Ambulatory Ambulatory Ambulatory Patient Identification Verified (Name & Yes Yes Yes ) Patient Requires Transmission-Based No No Precautions Safety Precautions Fall Prevention Height and Weight Body Mass Index (BMI) 27.6 27.6 27.6 BMI Classification Overweight Overweight Overweight Vital Signs Temperature (97.8 F-99.1 F) 97.7 F L 96.7 F L 95.7 F L Temperature Source Temporal Temporal Temporal Pulse Rate (60-100) 90 84 90 Pulse Location Monitor Monitor Monitor Respiratory Rate (12-18) 18 18 18 Respiratory rate source Observation Observation Observation Oxygen Delivery Method Room Air Room Air Blood Pressure (90/60-120/80) 147/92 H 150/91 H 152/82 H Blood Pressure Mean (mm Hg) 110 110 105 Source Monitor Monitor Monitor Position Sitting Semi-Fowlers Blood Pressure Location Left Arm Left Arm History Since Last Visit- (Skip if this is Patient's initial visit) Have you changed medications since your No No last visit? Any new allergies or adverse reactions No No Had a fall/change in ADL's that may No No increase risk of falls Signs or symptoms of abuse and/or No No neglect since last visit Have you been in the hospital since your No No last visit? Has dressing in place as prescribed Yes Yes Has compression in place as prescribed Yes Yes Has offloadiing in place as prescribed N/A N/A Experienced any changes in pain level or No No management Left Footwear Regular Shoe Regular Shoe Right Footwear Regular Shoe Regular Shoe Pain Scale: 0-10 Numeric Is Patient Pain Free? Yes Yes Yes 05/09/24 10:09 - Today's Visit Information Type of service Follow-up Visit (Physician/HOOP MAKER ) Arrival Mode Ambulatory Patient Identification Verified (Name & Yes ) Patient Requires Transmission-Based Precautions Safety Precautions Height and Weight Body Mass Index (BMI) 27.6 BMI Classification Overweight Vital Signs Temperature (97.8 F-99.1 F) 96.5 F L Temperature Source Temporal Pulse Rate (60-100) 90 Pulse Location Monitor Respiratory Rate (12-18) 16 Respiratory rate source Observation Oxygen Delivery Method Room Air Blood Pressure (90/60-120/80) 156/89 H Blood Pressure Mean (mm Hg) 111 Source Monitor Position Semi-Fowlers Blood Pressure Location Left Arm History Since Last Visit- (Skip if this is Patient's initial visit) Have you changed medications since your No last visit? Any new allergies or adverse reactions No Had a fall/change in ADL's that may No increase risk of falls Signs or symptoms of abuse and/or No neglect since last visit Have you been in the hospital since your No last visit? Has dressing in place as prescribed Yes Has compression in place as prescribed Yes Has offloadiing in place as prescribed N/A Experienced any changes in pain level or No management Left Footwear Regular Shoe Right Footwear Regular Shoe Pain Scale: 0-10 Numeric Is Patient Pain Free? Yes WC - Nurse 1 - General Ulcer Measurement Start: 04/25/24 10:20 Freq: Status: Active Protocol: Activity Type Activity Date Activity User E-sign Co-sign Detail Recorded Client Recorded Date Recorded By Document 04/25/24 10:20 JF [id number] 04/25/24 10:24 JF Document 05/02/24 10:03 KW [id number] 05/02/24 10:17 KW Document 05/09/24 10:09 ML [id number] 05/09/24 10:14 ML 04/25/24 05/02/24 05/09/24 10:20 10:03 10:09 Wound Center Nurse 1 #3 L Calf cluster -Current Size (cm) - Length 1.7 1.7 1.8 -Current Size (cm) - Width 1.9 2 2.2 -Current Size (cm) - Depth 0.2 0.2 0.1 -Total Square Cm 3.23 3.4 3.96 -Date of Last Picture (Recall this 05/02/24 field) -Exudate Amt Medium Small Small -Exudate Type Serosanguineous Serosanguineous Serosanguineous -Wound Margin Distinct, Distinct, Distinct, Outline Outline Outline Attached Attached Attached -Granulation Amt Large (67-100%) Large (67-100%) Large (67-100%) -Granulation Quality Red Red Red -Necrosis Amt None Present (0 %) -Structure Exposed N/A -Texture (Karen-wound Skin Appearance) No Abnormality Assessed Assessed -Moisture (Karen-wound Skin Appearance) No Abnormality Assessed Assessed -Color (Karen-wound Skin Appearance) No Abnormality Assessed Assessed -Temperature (Karen-wound Skin No Abnormality No Abnormality No Abnormality Appearance) (Pt Warm) (Pt Warm) (Pt Warm) -Tenderness on Palpation (Karen-wound No No Skin Appearance) -Ulcer Cleansing Soap and Water Soap and Water Soap and Water -Foul Odor after Cleansing No No -Anesthetic Used 5% Lidocaine 5% Lidocaine 5% Lidocaine Gel Gel Gel Left Calf (cm) 37.5 36 Left Ankle (cm) 20.6 19.5 WC - Nurse 2 - General Ulcer CM Notes Start: 04/25/24 10:20 Freq: Status: Active Protocol: Activity Type Activity Date Activity User E-sign Co-sign Detail Recorded Client Recorded Date Recorded By Document 04/25/24 10:31 [id number] 04/25/24 10:35 Document 05/02/24 10:49 [id number] 05/02/24 10:51 Document 05/09/24 10:32 [id number] 05/09/24 10:35 04/25/24 05/02/24 05/09/24 10:31 10:49 10:32 Wound Center Nurse 2 #3 L Calf cluster -Time 10:31 10:49 10:32 -Correct Patient Yes Yes Yes -Correct Side, Site, Position Yes Yes Yes -Correct Procedure Yes Yes Yes -Procedure Performed Yes Yes Yes -Type of Procedure Debridement Debridement Debridement -Clinical Debridement Subcutaneous Subcutaneous Subcutaneous -Tissue Removed Subcutaneous Subcutaneous Subcutaneous -Post Debridement (cm) - Length 3.0 2.8 2.4 -Post Debridement (cm) - Width 2.0 1.7 1.7 -Post Debridement (cm) - Depth 0.2 0.1 0.1 -Total Square (Post) (cm) 6.00 4.76 4.08 -Area of Debridement (cm) - Length 3.0 2.8 2.4 -Area of Debridement (cm) - Width 2.0 1.7 1.7 -Total Square (Area) (cm) 6.00 4.76 4.08 -Tunneling No No No -Undermining/Tunneling No No No -Circular Undermining No No No -Wound/Ulcer Outcome Not Healed Not Healed Not Healed -Ulcer Cleansing Rinsed/ Rinsed/ Rinsed/ Irrigated with Irrigated with Irrigated with Saline Saline Saline -Foul Odor after Cleansing No No No -Bioengineered Tissue No No No -Bleeding Controlled with Pressure Pressure Pressure -Treatment Response Procedure Procedure Procedure Tolerated Well Tolerated Well Tolerated Well -Offloading No No No -Debridement - Subq, 1st 20sq cm Yes Yes Yes Pain Scale: 0-10 Numeric Is Patient Pain Free? Yes Yes Yes WC - Nurse 3 - General Ulcer D/C NN Start: 04/25/24 10:20 Freq: Status: Active Protocol: Activity Type Activity Date Activity User E-sign Co-sign Detail Recorded Client Recorded Date Recorded By Document 04/25/24 10:59 DL [id number] 04/25/24 11:01 DL Document 04/29/24 12:07 DS [id number] 04/29/24 12:24 DS Document 05/02/24 11:11 KW [id number] 05/02/24 11:12 KW Document 05/09/24 10:52 ML [id number] 05/09/24 10:53 ML 04/25/24 04/29/24 05/02/24 10:59 12:07 11:11 Wound Care Center Nurse 3 #3 L Calf cluster -Ulcer Cleansing Rinsed/ Soap and Water Rinsed/ Irrigated with Irrigated with Saline Saline -Foul Odor after Cleansing No -Primary Dressing Applied Optilok 6.5x10 Optilok 8x12, Optilok 6.5x10 Promogran Alix Matter -Other Dressing alix pt own alix -Primary Dressing Covered/Secured with Dry Gauze & Dry Gauze & Roll Gauze Roll Gauze, Secured with Tape -Optilok 6.5x10 1 1 -Optilok 8x12 1 -Promogran Alix Matter 0 Left -Lotion applied to leg before Yes compression wrap -Multi-Layered Wrap Application Multi-Layer Multi-Layer Multi-Layer Comp - Left ($) Comp - Left ($) Comp - Left ($) Treatment Response Procedure Tolerated Well Pain Scale: 0-10 Numeric Is Patient Pain Free? Yes Yes Yes WC - Visit Discharge Discharge Condition Stable Stable Stable Ambulatory Status Ambulatory Ambulatory Ambulatory Transportation Private Auto Private Auto Private Auto Medication Reconcilliation completed & No provided to patient/care provider Clinical Summary of Care Provided Yes 05/09/24 10:52 Wound Care Center Nurse 3 #3 L Calf cluster -Ulcer Cleansing Rinsed/ Irrigated with Saline -Foul Odor after Cleansing -Primary Dressing Applied Promogran Alix Matter -Other Dressing brought alix from home -Primary Dressing Covered/Secured with -Optilok 6.5x10 -Optilok 8x12 -Promogran Alix Matter 0 Left -Lotion applied to leg before compression wrap -Multi-Layered Wrap Application Multi-Layer Comp - Right ($ ) Treatment Response Pain Scale: 0-10 Numeric Is Patient Pain Free? Yes WC - Visit Discharge Discharge Condition Ambulatory Status Transportation Medication Reconcilliation completed & provided to patient/care provider Clinical Summary of Care Provided
[2024-05-16 10:53] VITALS: BP 162/96; PULSE 97; RESP 18; TEMP 35.7; BMI 27.6
--- NOTE | 2024-05-16 12:29 | PCM.WC.PN ---
History of Present Illness Date of Service: 05/16/24 Chief Complaint: Left lateral leg ulcer that was initially caused by trauma from bumping leg on edge of car. History of Wound: Patient is 83 year female who presents for further evaluation of an ulcer on her left posterolateral leg. She initially bumped her leg on her car frame when removing something from her car on 05/22/24 and needed sutures to her left anterior leg. She then developed increased pain, swelling and a hematoma to her left leg and was seen in the ED very early on 05/27/23. She is on chronic anticoagulation for Afib, her INR was 5.3 at that time. She was discharged home with follow up with her PCP later that day. She returned to the ED via squad later that day after she experienced a large amount of bleeding. The hematoma was evacuated in the ED under sedation. She was admitted to the hospital and she required transfusion of 1 unit PRBC when her hemoglobin dropped from 11 to 6.9. She was transferred to [facility] for a little while. She comes in today for further evaluation of her left posterolateral leg ulcer from a hematoma. She states she is doing well at home. Her daughter is helping her with her dressing changes. Wound care - Alix. 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 Wound cultures obtained 07/27/23 which were positive for Pseudomonas aeruginosa, MRSA, Corynebacterium striatum, and Anaerobic cocci. She was placed on Flagyl and finished them. She was placed on Levaquin and is tolerating them thus far. She was placed on Linezolid and stated she had some visual problems and stopped the antibiotic. Stopped the Clindamycin due severe heart burn. Re-cultured the ulcer on 08/25/23 and it was positive for Acinetobacter baumannii. Started her on Augmentin, which she has tolerated in the past. Arterial studies obtained 03/31/24 - Right GEOVANNA at digital level 0.92 (non compressible at posterior tib and dorsalis pedis). Left GEOVANNA 1.10. Triphasic Doppler waveforms are noted at ankle level bilaterally. Pulse-volume recordings appear satisfactory at all levels bilaterally. The resting right ankle-brachial index could not be determined due to the non-compressibility of the vasculature at ankle level on the right. The resting left ankle-brachial index is normal. Digital-brachial indices are normal bilaterally. There is evidence of arterial calcification at ankle level on the right. There is no evidence of significant arterial occlusive disease in the lower extremities bilaterally. Venous doppler obtained 03/31/24 - Deep veins of the lower extremities are bilaterally patent and compressible segmentally. There is no evidence of deep vein thrombosis on either side. The right sapheno-femoral junction is incompetent . The right great saphenous vein appears segmentally incompetent. The left great saphenous vein appears incompetent below the knee. The accessory saphenous vein in the right mid-thigh and mid-calf are incompetent. Chronic venous changes are noted in an accessory saphenous vein in the right calf. Today she denies fever, chills, nausea or vomiting. Her appetite is good. Patient was interested in advanced skin substitute grafts to help the ulcer to heal. She has had 10 applications of Theraskin. Progress of Wound: Left lateral leg ulcer is smaller. The wound bed is nice beefy pink color. She is tolerating the 3 M 2 layer wraps on her left leg the edema has greatly improved. She continues to have +3 edema on her right lower extremity. Stressed importance keeping leg elevated while sitting to help with swelling. Objective Data Objective Data Vital Signs: Vital Signs Temp Pulse Resp BP O2 Del Method 96.2 F L 97 18 162/96 H Room Air 05/16/24 10:53 05/16/24 10:53 05/16/24 10:53 05/16/24 10:53 05/09/24 10:09 Oxygen Delivery Method Room Air Weight: 170 lb 12.573 oz Body Mass Index (BMI) 27.6 Charges/Coding Procedures Integumentary 111xxx-113xx: 34244 Humera subq tissue 20 sq cm/< Debridement Note Debridement Note Wound debrided: #3 - Left posterolateral leg ulcer cluster Laterality: Left Wound Grade/Stage: Grade III Type of Debridement: Excisional debridement Anesthesia Used: 5% Lidocaine Gel Depth: Down to and including healthy tissue and in the subcutaneous layer Percentage of wound debrided: 100 Instrument Used: 5mm curette Tissue Removed: subcutaneous tissue, senescent cells Severity: Fat Layer Exposed Amount of bleeding with debridement: Mild Bleeding Controlled with: Pressure and Compression and gauze Patient tolerated procedure: Patient tolerated procedure well Post-Debridement Measurements and Additional Note: Post-Debridement Measurements/Treatment WC - Nurse 1 - General Ulcer Assessment Start: 04/25/24 10:20 Freq: Status: Active Protocol: [place] Activity Type Activity Date Activity User E-sign Co-sign Detail Recorded Client Recorded Date Recorded By Document 04/25/24 10:20 JF [id number] 04/25/24 10:24 JF Document 04/29/24 12:06 DS [id number] 04/29/24 12:07 DS Document 05/02/24 10:03 KW [id number] 05/02/24 10:17 KW Document 05/09/24 10:09 ML [id number] 05/09/24 10:14 ML Document 05/16/24 10:53 DL [id number] 05/16/24 10:58 DL 04/25/24 04/29/24 05/02/24 10:20 12:06 10:03 WC - Today's Visit Information Type of service Follow-up Visit Nurse-only Follow-up Visit (Physician/ENVIRONMENTAL AUDITOR Visit (Physician/ENVIRONMENTAL AUDITOR ) ) Arrival Mode Ambulatory Ambulatory Ambulatory Transfer Assistance Patient Identification Verified (Name & Yes Yes Yes ) Patient Requires Transmission-Based No No Precautions Safety Precautions Fall Prevention Height and Weight Body Mass Index (BMI) 27.6 27.6 27.6 BMI Classification Overweight Overweight Overweight Vital Signs Temperature (97.8 F-99.1 F) 97.7 F L 96.7 F L 95.7 F L Temperature Source Temporal Temporal Temporal Pulse Rate (60-100) 90 84 90 Pulse Location Monitor Monitor Monitor Respiratory Rate (12-18) 18 18 18 Respiratory rate source Observation Observation Observation Oxygen Delivery Method Room Air Room Air Blood Pressure (90/60-120/80) 147/92 H 150/91 H 152/82 H Blood Pressure Mean (mm Hg) 110 110 105 Source Monitor Monitor Monitor Position Sitting Semi-Fowlers Blood Pressure Location Left Arm Left Arm History Since Last Visit- (Skip if this is Patient's initial visit) Have you changed medications since your No No last visit? Any new allergies or adverse reactions No No Had a fall/change in ADL's that may No No increase risk of falls Signs or symptoms of abuse and/or No No neglect since last visit Have you been in the hospital since your No No last visit? Has dressing in place as prescribed Yes Yes Has compression in place as prescribed Yes Yes Has offloadiing in place as prescribed N/A N/A Experienced any changes in pain level or No No management Left Footwear Regular Shoe Regular Shoe Right Footwear Regular Shoe Regular Shoe Pain Scale: 0-10 Numeric Is Patient Pain Free? Yes Yes Yes 05/09/24 05/16/24 10:09 10:53 - Today's Visit Information Type of service Follow-up Visit Follow-up Visit (Physician/ENVIRONMENTAL AUDITOR (Physician/ENVIRONMENTAL AUDITOR ) ) Arrival Mode Ambulatory Ambulatory Transfer Assistance None Patient Identification Verified (Name & Yes Yes ) Patient Requires Transmission-Based No Precautions Safety Precautions Height and Weight Body Mass Index (BMI) 27.6 27.6 BMI Classification Overweight Overweight Vital Signs Temperature (97.8 F-99.1 F) 96.5 F L 96.2 F L Temperature Source Temporal Temporal Pulse Rate (60-100) 90 97 Pulse Location Monitor Monitor Respiratory Rate (12-18) 16 18 Respiratory rate source Observation Observation Oxygen Delivery Method Room Air Blood Pressure (90/60-120/80) 156/89 H 162/96 H Blood Pressure Mean (mm Hg) 111 118 Source Monitor Monitor Position Semi-Fowlers Blood Pressure Location Left Arm History Since Last Visit- (Skip if this is Patient's initial visit) Have you changed medications since your No No last visit? Any new allergies or adverse reactions No No Had a fall/change in ADL's that may No No increase risk of falls Signs or symptoms of abuse and/or No No neglect since last visit Have you been in the hospital since your No No last visit? Has dressing in place as prescribed Yes Yes Has compression in place as prescribed Yes Yes Has offloadiing in place as prescribed N/A N/A Experienced any changes in pain level or No Yes management Left Footwear Regular Shoe Regular Shoe Right Footwear Regular Shoe Regular Shoe Pain Scale: 0-10 Numeric Is Patient Pain Free? Yes Yes MIKE - Nurse 1 - General Ulcer Measurement Start: 04/25/24 10:20 Freq: Status: Active Protocol: Activity Type Activity Date Activity User E-sign Co-sign Detail Recorded Client Recorded Date Recorded By Document 04/25/24 10:20 TERRY [id number] 04/25/24 10:24 JF Document 05/02/24 10:03 KW [id number] 05/02/24 10:17 KW Document 05/09/24 10:09 ML [id number] 05/09/24 10:14 ML Document 05/16/24 10:53 DL [id number] 05/16/24 10:58 DL 04/25/24 05/02/24 05/09/24 10:20 10:03 10:09 Wound Center Nurse 1 #3 L Calf cluster -Current Size (cm) - Length 1.7 1.7 1.8 -Current Size (cm) - Width 1.9 2 2.2 -Current Size (cm) - Depth 0.2 0.2 0.1 -Total Square Cm 3.23 3.4 3.96 -Date of Last Picture (Recall this 05/02/24 field) -Exudate Amt Medium Small Small -Exudate Type Serosanguineous Serosanguineous Serosanguineous -Wound Margin Distinct, Distinct, Distinct, Outline Outline Outline Attached Attached Attached -Granulation Amt Large (67-100%) Large (67-100%) Large (67-100%) -Granulation Quality Red Red Red -Necrosis Amt None Present (0 %) -Necrotic Tissue Type -Structure Exposed N/A -Texture (Karen-wound Skin Appearance) No Abnormality Assessed Assessed -Moisture (Karen-wound Skin Appearance) No Abnormality Assessed Assessed -Color (Karen-wound Skin Appearance) No Abnormality Assessed Assessed -Temperature (Karen-wound Skin No Abnormality No Abnormality No Abnormality Appearance) (Pt Warm) (Pt Warm) (Pt Warm) -Tenderness on Palpation (Karen-wound No No Skin Appearance) -Ulcer Cleansing Soap and Water Soap and Water Soap and Water -Foul Odor after Cleansing No No -Anesthetic Used 5% Lidocaine 5% Lidocaine 5% Lidocaine Gel Gel Gel Left Calf (cm) 37.5 36 Left Ankle (cm) 20.6 19.5 05/16/24 10:53 Wound Center Nurse 1 #3 L Calf cluster -Current Size (cm) - Length 1.4 -Current Size (cm) - Width 1.7 -Current Size (cm) - Depth 0.1 -Total Square Cm 2.38 -Date of Last Picture (Recall this field) -Exudate Amt Medium -Exudate Type Serosanguineous -Wound Margin Distinct, Outline Attached -Granulation Amt Medium (34-66%) -Granulation Quality [place] -Necrosis Amt Medium (34-66%) -Necrotic Tissue Type Adherent Slough -Structure Exposed N/A -Texture (Karen-wound Skin Appearance) Scarring -Moisture (Karen-wound Skin Appearance) No Abnormality -Color (Karen-wound Skin Appearance) No Abnormality -Temperature (Karen-wound Skin No Abnormality Appearance) (Pt Warm) -Tenderness on Palpation (Karen-wound Skin Appearance) -Ulcer Cleansing Soap and Water -Foul Odor after Cleansing No -Anesthetic Used 5% Lidocaine Gel Left Calf (cm) 35 Left Ankle (cm) 20 WC - Nurse 2 - General Ulcer CM Notes Start: 04/25/24 10:20 Freq: Status: Active Protocol: Activity Type Activity Date Activity User E-sign Co-sign Detail Recorded Client Recorded Date Recorded By Document 04/25/24 10:31 [id number] 04/25/24 10:35 Document 05/02/24 10:49 [id number] 05/02/24 10:51 Document 05/09/24 10:32 [id number] 05/09/24 10:35 Document 05/16/24 11:22 [id number] 05/16/24 11:23 04/25/24 05/02/24 05/09/24 10:31 10:49 10:32 Wound Center Nurse 2 #3 L Calf cluster -Time 10:31 10:49 10:32 -Correct Patient Yes Yes Yes -Correct Side, Site, Position Yes Yes Yes -Correct Procedure Yes Yes Yes -Procedure Performed Yes Yes Yes -Type of Procedure Debridement Debridement Debridement -Clinical Debridement Subcutaneous Subcutaneous Subcutaneous -Tissue Removed Subcutaneous Subcutaneous Subcutaneous -Post Debridement (cm) - Length 3.0 2.8 2.4 -Post Debridement (cm) - Width 2.0 1.7 1.7 -Post Debridement (cm) - Depth 0.2 0.1 0.1 -Total Square (Post) (cm) 6.00 4.76 4.08 -Area of Debridement (cm) - Length 3.0 2.8 2.4 -Area of Debridement (cm) - Width 2.0 1.7 1.7 -Total Square (Area) (cm) 6.00 4.76 4.08 -Tunneling No No No -Undermining/Tunneling No No No -Circular Undermining No No No -Wound/Ulcer Outcome Not Healed Not Healed Not Healed -Ulcer Cleansing Rinsed/ Rinsed/ Rinsed/ Irrigated with Irrigated with Irrigated with Saline Saline Saline -Foul Odor after Cleansing No No No -Bioengineered Tissue No No No -Bleeding Controlled with Pressure Pressure Pressure -Treatment Response Procedure Procedure Procedure Tolerated Well Tolerated Well Tolerated Well -Offloading No No No -Debridement - Subq, 1st 20sq cm Yes Yes Yes Pain Scale: 0-10 Numeric Is Patient Pain Free? Yes Yes Yes 05/16/24 11:22 Wound Center Nurse 2 #3 L Calf cluster -Time 11:22 -Correct Patient Yes -Correct Side, Site, Position Yes -Correct Procedure Yes -Procedure Performed Yes -Type of Procedure Debridement -Clinical Debridement Subcutaneous -Tissue Removed Subcutaneous -Post Debridement (cm) - Length 2.2 -Post Debridement (cm) - Width 1.5 -Post Debridement (cm) - Depth 0.1 -Total Square (Post) (cm) 3.30 -Area of Debridement (cm) - Length 2.2 -Area of Debridement (cm) - Width 1.5 -Total Square (Area) (cm) 3.30 -Tunneling No -Undermining/Tunneling No -Circular Undermining No -Wound/Ulcer Outcome Not Healed -Ulcer Cleansing Rinsed/ Irrigated with Saline -Foul Odor after Cleansing No -Bioengineered Tissue No -Bleeding Controlled with Pressure -Treatment Response Procedure Tolerated Well -Offloading No -Debridement - Subq, 1st 20sq cm Yes Pain Scale: 0-10 Numeric Is Patient Pain Free? Yes - Nurse 3 - General Ulcer D/C NN Start: 04/25/24 10:20 Freq: Status: Active Protocol: Activity Type Activity Date Activity User E-sign Co-sign Detail Recorded Client Recorded Date Recorded By Document 04/25/24 10:59 DL [id number] 04/25/24 11:01 DL Document 04/29/24 12:07 DS [id number] 04/29/24 12:24 DS Document 05/02/24 11:11 KW [id number] 05/02/24 11:12 KW Document 05/09/24 10:52 ML [id number] 05/09/24 10:53 ML Document 05/16/24 11:35 BMF [id number] 05/16/24 11:36 BMF 04/25/24 04/29/24 05/02/24 10:59 12:07 11:11 Wound Care Center Nurse 3 #3 L Calf cluster -Ulcer Cleansing Rinsed/ Soap and Water Rinsed/ Irrigated with Irrigated with Saline Saline -Foul Odor after Cleansing No -Primary Dressing Applied Optilok 6.5x10 Optilok 8x12, Optilok 6.5x10 Promogran Alix Matter -Other Dressing alix pt own alix -Primary Dressing Covered/Secured with Dry Gauze & Dry Gauze & Roll Gauze Roll Gauze, Secured with Tape -Optilok 6.5x10 1 1 -Optilok 8x12 1 -Promogran Alix Matter 0 Left -Lotion applied to leg before Yes compression wrap -Multi-Layered Wrap Application Multi-Layer Multi-Layer Multi-Layer Comp - Left ($) Comp - Left ($) Comp - Left ($) Treatment Response Procedure Tolerated Well Pain Scale: 0-10 Numeric Is Patient Pain Free? Yes Yes Yes WC - Visit Discharge Discharge Condition Stable Stable Stable Ambulatory Status Ambulatory Ambulatory Ambulatory Transportation Private Auto Private Auto Private Auto Medication Reconcilliation completed & No provided to patient/care provider Clinical Summary of Care Provided Yes 05/09/24 05/16/24 10:52 11:35 Wound Care Center Nurse 3 #3 L Calf cluster -Ulcer Cleansing Rinsed/ Rinsed/ Irrigated with Irrigated with Saline Saline -Foul Odor after Cleansing No -Primary Dressing Applied Promogran Alix Matter -Other Dressing brought alix alix from home -Primary Dressing Covered/Secured with Dry Gauze & Roll Gauze, Secured with Tape -Optilok 6.5x10 -Optilok 8x12 -Promogran Alix Matter 0 Left -Lotion applied to leg before compression wrap -Multi-Layered Wrap Application Multi-Layer Multi-Layer Comp - Right ($ Comp - Left ($) ) Treatment Response Procedure Tolerated Well Pain Scale: 0-10 Numeric Is Patient Pain Free? 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: CODE(S): L97.902 - Non-pressure chronic ulcer of unspecified part of unspecified lower leg with fat layer exposed QUALIFIERS: Laterality: left Qualified Code(s): L97.922 - Non-pressure chronic ulcer of unspecified part of left lower leg with fat layer exposed (2) Contusion of left lower leg, sequela: CODE(S): S80.12XS - Contusion of left lower leg, sequela (3) Hematoma: CODE(S): T14.8XXA - Other injury of unspecified body region, initial encounter (4) Chronic anticoagulation: CODE(S): Z79.01 - 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 Wound care - Continue Alix cover with ABD/superabsorber. 3M 2 layer wrap for compression on the left leg. She started to wear double tubigrip on right leg. Offered her a 3M 2 layer wrap to the left leg to help decrease her edema. She will leave the 3M 2 layer wrap on the left in place. It is not to get wet. She will follow up in one week with me. Instructed her to come in sooner if the wrap starts to slide down. Encouraged protein supplementation to help with wound healing. She has been using Daniel. Encouraged her to consider being referred for an evaluation for a skin graft. She states that she will think about it.
--- NOTE | 2024-05-16 14:54 | PCM.WC.PN ---
History of Present Illness Date of Service: 05/16/24 Chief Complaint: Left lateral leg ulcer that was initially caused by trauma from bumping leg on edge of car. History of Wound: Patient is 83 year female who presents for further evaluation of an ulcer on her left posterolateral leg. She initially bumped her leg on her car frame when removing something from her car on 05/22/24 and needed sutures to her left anterior leg. She then developed increased pain, swelling and a hematoma to her left leg and was seen in the ED very early on 05/27/23. She is on chronic anticoagulation for Afib, her INR was 5.3 at that time. She was discharged home with follow up with her PCP later that day. She returned to the ED via squad later that day after she experienced a large amount of bleeding. The hematoma was evacuated in the ED under sedation. She was admitted to the hospital and she required transfusion of 1 unit PRBC when her hemoglobin dropped from 11 to 6.9. She was transferred to [facility] for a little while. She comes in today for further evaluation of her left posterolateral leg ulcer from a hematoma. She states she is doing well at home. Her daughter is helping her with her dressing changes. Wound care - Alix. 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 Wound cultures obtained 07/27/23 which were positive for Pseudomonas aeruginosa, MRSA, Corynebacterium striatum, and Anaerobic cocci. She was placed on Flagyl and finished them. She was placed on Levaquin and is tolerating them thus far. She was placed on Linezolid and stated she had some visual problems and stopped the antibiotic. Stopped the Clindamycin due severe heart burn. Re-cultured the ulcer on 08/25/23 and it was positive for Acinetobacter baumannii. Started her on Augmentin, which she has tolerated in the past. Arterial studies obtained 03/31/24 - Right GEOVANNA at digital level 0.92 (non compressible at posterior tib and dorsalis pedis). Left GEOVANNA 1.10. Triphasic Doppler waveforms are noted at ankle level bilaterally. Pulse-volume recordings appear satisfactory at all levels bilaterally. The resting right ankle-brachial index could not be determined due to the non-compressibility of the vasculature at ankle level on the right. The resting left ankle-brachial index is normal. Digital-brachial indices are normal bilaterally. There is evidence of arterial calcification at ankle level on the right. There is no evidence of significant arterial occlusive disease in the lower extremities bilaterally. Venous doppler obtained 03/31/24 - Deep veins of the lower extremities are bilaterally patent and compressible segmentally. There is no evidence of deep vein thrombosis on either side. The right sapheno-femoral junction is incompetent . The right great saphenous vein appears segmentally incompetent. The left great saphenous vein appears incompetent below the knee. The accessory saphenous vein in the right mid-thigh and mid-calf are incompetent. Chronic venous changes are noted in an accessory saphenous vein in the right calf. Today she denies fever, chills, nausea or vomiting. Her appetite is good. Patient was interested in advanced skin substitute grafts to help the ulcer to heal. She has had 10 applications of Theraskin. Progress of Wound: Left lateral leg ulcer is smaller. The wound bed is nice beefy pink color. She is tolerating the 3 M 2 layer wraps on her left leg the edema has greatly improved. She continues to have +2 edema on her right lower extremity. Objective Data Objective Data Vital Signs: Vital Signs Temp Pulse Resp BP O2 Del Method 96.2 F L 97 18 162/96 H Room Air 05/16/24 10:53 05/16/24 10:53 05/16/24 10:53 05/16/24 10:53 05/09/24 10:09 Oxygen Delivery Method Room Air Weight: 170 lb 12.573 oz Body Mass Index (BMI) 27.6 Charges/Coding Procedures Integumentary 111xxx-113xx: [id number] Humera subq tissue 20 sq cm/< Debridement Note Debridement Note Wound debrided: #3 - Left posterolateral leg ulcer cluster Laterality: Left Wound Grade/Stage: Grade III Type of Debridement: Excisional debridement Anesthesia Used: 5% Lidocaine Gel Depth: Down to and including healthy tissue and in the subcutaneous layer Percentage of wound debrided: 100 Instrument Used: 5mm curette Tissue Removed: subcutaneous tissue, senescent cells Severity: Fat Layer Exposed Amount of bleeding with debridement: Mild Bleeding Controlled with: Pressure and Compression and gauze Patient tolerated procedure: Patient tolerated procedure well Post-Debridement Measurements and Additional Note: Post-Debridement Measurements/Treatment WC - Nurse 1 - General Ulcer Assessment Start: 04/25/24 10:20 Freq: Status: Active Protocol: MIKE.LOWADDISON Activity Type Activity Date Activity User E-sign Co-sign Detail Recorded Client Recorded Date Recorded By Document 04/25/24 10:20 JF [id number] 04/25/24 10:24 JF Document 04/29/24 12:06 DS [id number] 04/29/24 12:07 DS Document 05/02/24 10:03 KW [id number] 05/02/24 10:17 KW Document 05/09/24 10:09 ML [id number] 05/09/24 10:14 ML Document 05/16/24 10:53 DL [id number] 05/16/24 10:58 DL 04/25/24 04/29/24 05/02/24 10:20 12:06 10:03 WC - Today's Visit Information Type of service Follow-up Visit Nurse-only Follow-up Visit (Physician/RIBBON LAPPER TENDER Visit (Physician/RIBBON LAPPER TENDER ) ) Arrival Mode Ambulatory Ambulatory Ambulatory Transfer Assistance Patient Identification Verified (Name & Yes Yes Yes ) Patient Requires Transmission-Based No No Precautions Safety Precautions Fall Prevention Height and Weight Body Mass Index (BMI) 27.6 27.6 27.6 BMI Classification Overweight Overweight Overweight Vital Signs Temperature (97.8 F-99.1 F) 97.7 F L 96.7 F L 95.7 F L Temperature Source Temporal Temporal Temporal Pulse Rate (60-100) 90 84 90 Pulse Location Monitor Monitor Monitor Respiratory Rate (12-18) 18 18 18 Respiratory rate source Observation Observation Observation Oxygen Delivery Method Room Air Room Air Blood Pressure (90/60-120/80) 147/92 H 150/91 H 152/82 H Blood Pressure Mean (mm Hg) 110 110 105 Source Monitor Monitor Monitor Position Sitting Semi-Fowlers Blood Pressure Location Left Arm Left Arm History Since Last Visit- (Skip if this is Patient's initial visit) Have you changed medications since your No No last visit? Any new allergies or adverse reactions No No Had a fall/change in ADL's that may No No increase risk of falls Signs or symptoms of abuse and/or No No neglect since last visit Have you been in the hospital since your No No last visit? Has dressing in place as prescribed Yes Yes Has compression in place as prescribed Yes Yes Has offloadiing in place as prescribed N/A N/A Experienced any changes in pain level or No No management Left Footwear Regular Shoe Regular Shoe Right Footwear Regular Shoe Regular Shoe Pain Scale: 0-10 Numeric Is Patient Pain Free? Yes Yes Yes 05/09/24 05/16/24 10:09 10:53 - Today's Visit Information Type of service Follow-up Visit Follow-up Visit (Physician/RIBBON LAPPER TENDER (Physician/RIBBON LAPPER TENDER ) ) Arrival Mode Ambulatory Ambulatory Transfer Assistance None Patient Identification Verified (Name & Yes Yes ) Patient Requires Transmission-Based No Precautions Safety Precautions Height and Weight Body Mass Index (BMI) 27.6 27.6 BMI Classification Overweight Overweight Vital Signs Temperature (97.8 F-99.1 F) 96.5 F L 96.2 F L Temperature Source Temporal Temporal Pulse Rate (60-100) 90 97 Pulse Location Monitor Monitor Respiratory Rate (12-18) 16 18 Respiratory rate source Observation Observation Oxygen Delivery Method Room Air Blood Pressure (90/60-120/80) 156/89 H 162/96 H Blood Pressure Mean (mm Hg) 111 118 Source Monitor Monitor Position Semi-Fowlers Blood Pressure Location Left Arm History Since Last Visit- (Skip if this is Patient's initial visit) Have you changed medications since your No No last visit? Any new allergies or adverse reactions No No Had a fall/change in ADL's that may No No increase risk of falls Signs or symptoms of abuse and/or No No neglect since last visit Have you been in the hospital since your No No last visit? Has dressing in place as prescribed Yes Yes Has compression in place as prescribed Yes Yes Has offloadiing in place as prescribed N/A N/A Experienced any changes in pain level or No Yes management Left Footwear Regular Shoe Regular Shoe Right Footwear Regular Shoe Regular Shoe Pain Scale: 0-10 Numeric Is Patient Pain Free? Yes Yes - Nurse 1 - General Ulcer Measurement Start: 04/25/24 10:20 Freq: Status: Active Protocol: Activity Type Activity Date Activity User E-sign Co-sign Detail Recorded Client Recorded Date Recorded By Document 04/25/24 10:20 JF [id number] 04/25/24 10:24 JF Document 05/02/24 10:03 KW [id number] 05/02/24 10:17 KW Document 05/09/24 10:09 ML [id number] 05/09/24 10:14 ML Document 05/16/24 10:53 DL [id number] 05/16/24 10:58 DL 04/25/24 05/02/24 05/09/24 10:20 10:03 10:09 Wound Center Nurse 1 #3 L Calf cluster -Current Size (cm) - Length 1.7 1.7 1.8 -Current Size (cm) - Width 1.9 2 2.2 -Current Size (cm) - Depth 0.2 0.2 0.1 -Total Square Cm 3.23 3.4 3.96 -Date of Last Picture (Recall this 05/02/24 field) -Exudate Amt Medium Small Small -Exudate Type Serosanguineous Serosanguineous Serosanguineous -Wound Margin Distinct, Distinct, Distinct, Outline Outline Outline Attached Attached Attached -Granulation Amt Large (67-100%) Large (67-100%) Large (67-100%) -Granulation Quality Red Red Red -Necrosis Amt None Present (0 %) -Necrotic Tissue Type -Structure Exposed N/A -Texture (Karen-wound Skin Appearance) No Abnormality Assessed Assessed -Moisture (Karen-wound Skin Appearance) No Abnormality Assessed Assessed -Color (Karen-wound Skin Appearance) No Abnormality Assessed Assessed -Temperature (Karen-wound Skin No Abnormality No Abnormality No Abnormality Appearance) (Pt Warm) (Pt Warm) (Pt Warm) -Tenderness on Palpation (Karen-wound No No Skin Appearance) -Ulcer Cleansing Soap and Water Soap and Water Soap and Water -Foul Odor after Cleansing No No -Anesthetic Used 5% Lidocaine 5% Lidocaine 5% Lidocaine Gel Gel Gel Left Calf (cm) 37.5 36 Left Ankle (cm) 20.6 19.5 05/16/24 10:53 Wound Center Nurse 1 #3 L Calf cluster -Current Size (cm) - Length 1.4 -Current Size (cm) - Width 1.7 -Current Size (cm) - Depth 0.1 -Total Square Cm 2.38 -Date of Last Picture (Recall this field) -Exudate Amt Medium -Exudate Type Serosanguineous -Wound Margin Distinct, Outline Attached -Granulation Amt Medium (34-66%) -Granulation Quality [place] -Necrosis Amt Medium (34-66%) -Necrotic Tissue Type Adherent Slough -Structure Exposed N/A -Texture (Karen-wound Skin Appearance) Scarring -Moisture (Karen-wound Skin Appearance) No Abnormality -Color (Karen-wound Skin Appearance) No Abnormality -Temperature (Karen-wound Skin No Abnormality Appearance) (Pt Warm) -Tenderness on Palpation (Karen-wound Skin Appearance) -Ulcer Cleansing Soap and Water -Foul Odor after Cleansing No -Anesthetic Used 5% Lidocaine Gel Left Calf (cm) 35 Left Ankle (cm) 20 WC - Nurse 2 - General Ulcer CM Notes Start: 04/25/24 10:20 Freq: Status: Active Protocol: Activity Type Activity Date Activity User E-sign Co-sign Detail Recorded Client Recorded Date Recorded By Document 04/25/24 10:31 [id number] 04/25/24 10:35 Document 05/02/24 10:49 [id number] 05/02/24 10:51 Document 05/09/24 10:32 [id number] 05/09/24 10:35 Document 05/16/24 11:22 [id number] 05/16/24 11:23 04/25/24 05/02/24 05/09/24 10:31 10:49 10:32 Wound Center Nurse 2 #3 L Calf cluster -Time 10:31 10:49 10:32 -Correct Patient Yes Yes Yes -Correct Side, Site, Position Yes Yes Yes -Correct Procedure Yes Yes Yes -Procedure Performed Yes Yes Yes -Type of Procedure Debridement Debridement Debridement -Clinical Debridement Subcutaneous Subcutaneous Subcutaneous -Tissue Removed Subcutaneous Subcutaneous Subcutaneous -Post Debridement (cm) - Length 3.0 2.8 2.4 -Post Debridement (cm) - Width 2.0 1.7 1.7 -Post Debridement (cm) - Depth 0.2 0.1 0.1 -Total Square (Post) (cm) 6.00 4.76 4.08 -Area of Debridement (cm) - Length 3.0 2.8 2.4 -Area of Debridement (cm) - Width 2.0 1.7 1.7 -Total Square (Area) (cm) 6.00 4.76 4.08 -Tunneling No No No -Undermining/Tunneling No No No -Circular Undermining No No No -Wound/Ulcer Outcome Not Healed Not Healed Not Healed -Ulcer Cleansing Rinsed/ Rinsed/ Rinsed/ Irrigated with Irrigated with Irrigated with Saline Saline Saline -Foul Odor after Cleansing No No No -Bioengineered Tissue No No No -Bleeding Controlled with Pressure Pressure Pressure -Treatment Response Procedure Procedure Procedure Tolerated Well Tolerated Well Tolerated Well -Offloading No No No -Debridement - Subq, 1st 20sq cm Yes Yes Yes Pain Scale: 0-10 Numeric Is Patient Pain Free? Yes Yes Yes 05/16/24 11:22 Wound Center Nurse 2 #3 L Calf cluster -Time 11:22 -Correct Patient Yes -Correct Side, Site, Position Yes -Correct Procedure Yes -Procedure Performed Yes -Type of Procedure Debridement -Clinical Debridement Subcutaneous -Tissue Removed Subcutaneous -Post Debridement (cm) - Length 2.2 -Post Debridement (cm) - Width 1.5 -Post Debridement (cm) - Depth 0.1 -Total Square (Post) (cm) 3.30 -Area of Debridement (cm) - Length 2.2 -Area of Debridement (cm) - Width 1.5 -Total Square (Area) (cm) 3.30 -Tunneling No -Undermining/Tunneling No -Circular Undermining No -Wound/Ulcer Outcome Not Healed -Ulcer Cleansing Rinsed/ Irrigated with Saline -Foul Odor after Cleansing No -Bioengineered Tissue No -Bleeding Controlled with Pressure -Treatment Response Procedure Tolerated Well -Offloading No -Debridement - Subq, 1st 20sq cm Yes Pain Scale: 0-10 Numeric Is Patient Pain Free? Yes - Nurse 3 - General Ulcer D/C NN Start: 04/25/24 10:20 Freq: Status: Active Protocol: Activity Type Activity Date Activity User E-sign Co-sign Detail Recorded Client Recorded Date Recorded By Document 04/25/24 10:59 DL [id number] 04/25/24 11:01 DL Document 04/29/24 12:07 DS [id number] 04/29/24 12:24 DS Document 05/02/24 11:11 KW [id number] 05/02/24 11:12 KW Document 05/09/24 10:52 ML [id number] 05/09/24 10:53 ML Document 05/16/24 11:35 BMF [id number] 05/16/24 11:36 BMF 04/25/24 04/29/24 05/02/24 10:59 12:07 11:11 Wound Care Center Nurse 3 #3 L Calf cluster -Ulcer Cleansing Rinsed/ Soap and Water Rinsed/ Irrigated with Irrigated with Saline Saline -Foul Odor after Cleansing No -Primary Dressing Applied Optilok 6.5x10 Optilok 8x12, Optilok 6.5x10 Promogran Alix Matter -Other Dressing alix pt own alix -Primary Dressing Covered/Secured with Dry Gauze & Dry Gauze & Roll Gauze Roll Gauze, Secured with Tape -Optilok 6.5x10 1 1 -Optilok 8x12 1 -Promogran Alix Matter 0 Left -Lotion applied to leg before Yes compression wrap -Multi-Layered Wrap Application Multi-Layer Multi-Layer Multi-Layer Comp - Left ($) Comp - Left ($) Comp - Left ($) Treatment Response Procedure Tolerated Well Pain Scale: 0-10 Numeric Is Patient Pain Free? Yes Yes Yes WC - Visit Discharge Discharge Condition Stable Stable Stable Ambulatory Status Ambulatory Ambulatory Ambulatory Transportation Private Auto Private Auto Private Auto Medication Reconcilliation completed & No provided to patient/care provider Clinical Summary of Care Provided Yes 05/09/24 05/16/24 10:52 11:35 Wound Care Center Nurse 3 #3 L Calf cluster -Ulcer Cleansing Rinsed/ Rinsed/ Irrigated with Irrigated with Saline Saline -Foul Odor after Cleansing No -Primary Dressing Applied Promogran Alix Matter -Other Dressing brought alix alix from home -Primary Dressing Covered/Secured with Dry Gauze & Roll Gauze, Secured with Tape -Optilok 6.5x10 -Optilok 8x12 -Promogran Alix Matter 0 Left -Lotion applied to leg before compression wrap -Multi-Layered Wrap Application Multi-Layer Multi-Layer Comp - Right ($ Comp - Left ($) ) Treatment Response Procedure Tolerated Well Pain Scale: 0-10 Numeric Is Patient Pain Free? 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 Wound care - Continue Alix cover with ABD/superabsorber. 3M 2 layer wrap for compression on the left leg. She wears a single tubigrip on the right lower extremity. Offered her a 3M 2 layer wrap to the left leg to help decrease her edema. She states she will start wearing a double tubigrip for compression to the right leg. She will leave the 3M 2 layer wrap on the left in place. It is not to get wet. She will follow up in one week with me. Instructed her to come in sooner if the wrap starts to slide down. Encouraged protein supplementation to help with wound healing. She has been using Daniel. Encouraged her to consider being referred for an evaluation for a skin graft. She states that she will think about it.
[2024-05-23 10:16] VITALS: BP 145/96; PULSE 88; RESP 14; TEMP 36.1; BMI 27.6
--- NOTE | 2024-05-23 16:04 | PCM.WC.PN ---
History of Present Illness Date of Service: 05/23/24 Chief Complaint: Left lateral leg ulcer that was initially caused by trauma from bumping leg on edge of car. History of Wound: Patient is 83 year female who presents for further evaluation of an ulcer on her left posterolateral leg. She initially bumped her leg on her car frame when removing something from her car on 05/22/24 and needed sutures to her left anterior leg. She then developed increased pain, swelling and a hematoma to her left leg and was seen in the ED very early on 05/27/23. She is on chronic anticoagulation for Afib, her INR was 5.3 at that time. She was discharged home with follow up with her PCP later that day. She returned to the ED via squad later that day after she experienced a large amount of bleeding. The hematoma was evacuated in the ED under sedation. She was admitted to the hospital and she required transfusion of 1 unit PRBC when her hemoglobin dropped from 11 to 6.9. She was transferred to [facility] for a little while. She comes in today for further evaluation of her left posterolateral leg ulcer from a hematoma. She states she is doing well at home. Her daughter is helping her with her dressing changes. Wound care - Alix. 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 Wound cultures obtained 07/27/23 which were positive for Pseudomonas aeruginosa, MRSA, Corynebacterium striatum, and Anaerobic cocci. She was placed on Flagyl and finished them. She was placed on Levaquin and is tolerating them thus far. She was placed on Linezolid and stated she had some visual problems and stopped the antibiotic. Stopped the Clindamycin due severe heart burn. Re-cultured the ulcer on 08/25/23 and it was positive for Acinetobacter baumannii. Started her on Augmentin, which she has tolerated in the past. Arterial studies obtained 03/31/24 - Right GEOVANNA at digital level 0.92 (non compressible at posterior tib and dorsalis pedis). Left GEOVANNA 1.10. Triphasic Doppler waveforms are noted at ankle level bilaterally. Pulse-volume recordings appear satisfactory at all levels bilaterally. The resting right ankle-brachial index could not be determined due to the non-compressibility of the vasculature at ankle level on the right. The resting left ankle-brachial index is normal. Digital-brachial indices are normal bilaterally. There is evidence of arterial calcification at ankle level on the right. There is no evidence of significant arterial occlusive disease in the lower extremities bilaterally. Venous doppler obtained 03/31/24 - Deep veins of the lower extremities are bilaterally patent and compressible segmentally. There is no evidence of deep vein thrombosis on either side. The right sapheno-femoral junction is incompetent . The right great saphenous vein appears segmentally incompetent. The left great saphenous vein appears incompetent below the knee. The accessory saphenous vein in the right mid-thigh and mid-calf are incompetent. Chronic venous changes are noted in an accessory saphenous vein in the right calf. Today she denies fever, chills, nausea or vomiting. Her appetite is good. Patient was interested in advanced skin substitute grafts to help the ulcer to heal. She has had 10 applications of Theraskin. Progress of Wound: Left lateral leg ulcer is smaller. The wound bed is nice beefy pink color. She is tolerating the 3 M 2 layer wraps on her left leg and she has no edema. She is wearing a double tubigrip for her edema on her right lower extremity. Stressed importance keeping legs elevated while sitting to help with swelling. Objective Data Objective Data Vital Signs: Vital Signs Temp Pulse Resp BP O2 Del Method 96.9 F L 88 14 145/96 H Room Air 05/23/24 10:16 05/23/24 10:16 05/23/24 10:16 05/23/24 10:16 05/09/24 10:09 Oxygen Delivery Method Room Air Weight: 170 lb 12.573 oz Body Mass Index (BMI) 27.6 Charges/Coding Procedures Integumentary 111xxx-113xx: 98234 Humera subq tissue 20 sq cm/< Debridement Note Debridement Note Wound debrided: #3 - Left posterolateral leg ulcer cluster Laterality: Left Wound Grade/Stage: Grade III Type of Debridement: Excisional debridement Anesthesia Used: 5% Lidocaine Gel Depth: Down to and including healthy tissue and in the subcutaneous layer Percentage of wound debrided: 100 Instrument Used: 3mm curette Tissue Removed: subcutaneous tissue, senescent cells Severity: Fat Layer Exposed Amount of bleeding with debridement: Mild Bleeding Controlled with: Pressure and Compression and gauze Patient tolerated procedure: Patient tolerated procedure well Post-Debridement Measurements and Additional Note: Post-Debridement Measurements/Treatment WC - Nurse 1 - General Ulcer Assessment Start: 04/25/24 10:20 Freq: Status: Active Protocol: [place] Activity Type Activity Date Activity User E-sign Co-sign Detail Recorded Client Recorded Date Recorded By Document 04/25/24 10:20 JF [id number] 04/25/24 10:24 JF Document 04/29/24 12:06 DS [id number] 04/29/24 12:07 DS Document 05/02/24 10:03 KW [id number] 05/02/24 10:17 KW Document 05/09/24 10:09 ML [id number] 05/09/24 10:14 ML Document 05/16/24 10:53 DL [id number] 05/16/24 10:58 DL Document 05/23/24 10:16 ML [id number] 05/23/24 10:27 ML 04/25/24 04/29/24 05/02/24 10:20 12:06 10:03 WC - Today's Visit Information Type of service Follow-up Visit Nurse-only Follow-up Visit (Physician/LOCUM TENENS PSYCHIATRIST Visit (Physician/LOCUM TENENS PSYCHIATRIST ) ) Arrival Mode Ambulatory Ambulatory Ambulatory Transfer Assistance Patient Identification Verified (Name & Yes Yes Yes ) Patient Requires Transmission-Based No No Precautions Safety Precautions Fall Prevention Height and Weight Body Mass Index (BMI) 27.6 27.6 27.6 BMI Classification Overweight Overweight Overweight Vital Signs Temperature (97.8 F-99.1 F) 97.7 F L 96.7 F L 95.7 F L Temperature Source Temporal Temporal Temporal Pulse Rate (60-100) 90 84 90 Pulse Location Monitor Monitor Monitor Respiratory Rate (12-18) 18 18 18 Respiratory rate source Observation Observation Observation Oxygen Delivery Method Room Air Room Air Blood Pressure (90/60-120/80) 147/92 H 150/91 H 152/82 H Blood Pressure Mean (mm Hg) 110 110 105 Source Monitor Monitor Monitor Position Sitting Semi-Fowlers Blood Pressure Location Left Arm Left Arm History Since Last Visit- (Skip if this is Patient's initial visit) Have you changed medications since your No No last visit? Any new allergies or adverse reactions No No Had a fall/change in ADL's that may No No increase risk of falls Signs or symptoms of abuse and/or No No neglect since last visit Have you been in the hospital since your No No last visit? Has dressing in place as prescribed Yes Yes Has compression in place as prescribed Yes Yes Has offloadiing in place as prescribed N/A N/A Experienced any changes in pain level or No No management Left Footwear Regular Shoe Regular Shoe Right Footwear Regular Shoe Regular Shoe Pain Scale: 0-10 Numeric Is Patient Pain Free? Yes Yes Yes 05/09/24 05/16/24 05/23/24 10:09 10:53 10:16 WC - Today's Visit Information Type of service Follow-up Visit Follow-up Visit Follow-up Visit (Physician/LOCUM TENENS PSYCHIATRIST (Physician/LOCUM TENENS PSYCHIATRIST (Physician/LOCUM TENENS PSYCHIATRIST ) ) ) Arrival Mode Ambulatory Ambulatory Ambulatory Transfer Assistance None None Patient Identification Verified (Name & Yes Yes Yes ) Patient Requires Transmission-Based No No Precautions Safety Precautions Height and Weight Body Mass Index (BMI) 27.6 27.6 27.6 BMI Classification Overweight Overweight Overweight Vital Signs Temperature (97.8 F-99.1 F) 96.5 F L 96.2 F L 96.9 F L Temperature Source Temporal Temporal Temporal Pulse Rate (60-100) 90 97 88 Pulse Location Monitor Monitor Monitor Respiratory Rate (12-18) 16 18 14 Respiratory rate source Observation Observation Observation Oxygen Delivery Method Room Air Blood Pressure (90/60-120/80) 156/89 H 162/96 H 145/96 H Blood Pressure Mean (mm Hg) 111 118 112 Source Monitor Monitor Monitor Position Semi-Fowlers Sitting Blood Pressure Location Left Arm Right Arm History Since Last Visit- (Skip if this is Patient's initial visit) Have you changed medications since your No No No last visit? Any new allergies or adverse reactions No No No Had a fall/change in ADL's that may No No No increase risk of falls Signs or symptoms of abuse and/or No No No neglect since last visit Have you been in the hospital since your No No No last visit? Has dressing in place as prescribed Yes Yes Yes Has compression in place as prescribed Yes Yes Yes Has offloadiing in place as prescribed N/A N/A N/A Experienced any changes in pain level or No Yes No management Left Footwear Regular Shoe Regular Shoe Right Footwear Regular Shoe Regular Shoe Pain Scale: 0-10 Numeric Is Patient Pain Free? Yes Yes Yes - Nurse 1 - General Ulcer Measurement Start: 04/25/24 10:20 Freq: Status: Active Protocol: Activity Type Activity Date Activity User E-sign Co-sign Detail Recorded Client Recorded Date Recorded By Document 04/25/24 10:20 JF [id number] 04/25/24 10:24 JF Document 05/02/24 10:03 KW [id number] 05/02/24 10:17 KW Document 05/09/24 10:09 ML [id number] 05/09/24 10:14 ML Document 05/16/24 10:53 DL [id number] 05/16/24 10:58 DL Document 05/23/24 10:16 ML [id number] 05/23/24 10:27 ML 04/25/24 05/02/24 05/09/24 10:20 10:03 10:09 Wound Center Nurse 1 #3 L Calf cluster -Current Size (cm) - Length 1.7 1.7 1.8 -Current Size (cm) - Width 1.9 2 2.2 -Current Size (cm) - Depth 0.2 0.2 0.1 -Total Square Cm 3.23 3.4 3.96 -Date of Last Picture (Recall this 05/02/24 field) -Exudate Amt Medium Small Small -Exudate Type Serosanguineous Serosanguineous Serosanguineous -Wound Margin Distinct, Distinct, Distinct, Outline Outline Outline Attached Attached Attached -Granulation Amt Large (67-100%) Large (67-100%) Large (67-100%) -Granulation Quality Red Red Red -Slough/Fibrin -Necrosis Amt None Present (0 %) -Necrotic Tissue Type -Structure Exposed N/A -Texture (Karen-wound Skin Appearance) No Abnormality Assessed Assessed -Moisture (Karen-wound Skin Appearance) No Abnormality Assessed Assessed -Color (Karen-wound Skin Appearance) No Abnormality Assessed Assessed -Temperature (Karen-wound Skin No Abnormality No Abnormality No Abnormality Appearance) (Pt Warm) (Pt Warm) (Pt Warm) -Tenderness on Palpation (Karen-wound No No Skin Appearance) -Ulcer Cleansing Soap and Water Soap and Water Soap and Water -Foul Odor after Cleansing No No -Anesthetic Used 5% Lidocaine 5% Lidocaine 5% Lidocaine Gel Gel Gel Left Calf (cm) 37.5 36 Left Ankle (cm) 20.6 19.5 05/16/24 05/23/24 10:53 10:16 Wound Center Nurse 1 #3 L Calf cluster -Current Size (cm) - Length 1.4 2 -Current Size (cm) - Width 1.7 105 -Current Size (cm) - Depth 0.1 0.1 -Total Square Cm 2.38 210 -Date of Last Picture (Recall this field) -Exudate Amt Medium Small -Exudate Type Serosanguineous Serosanguineous -Wound Margin Distinct, Distinct, Outline Outline Attached Attached -Granulation Amt Medium (34-66%) Medium (34-66%) -Granulation Quality [place] -Slough/Fibrin Yes -Necrosis Amt Medium (34-66%) Small (1-33%) -Necrotic Tissue Type Adherent Slough -Structure Exposed N/A -Texture (Karen-wound Skin Appearance) Scarring Assessed -Moisture (Karen-wound Skin Appearance) No Abnormality Assessed -Color (Karen-wound Skin Appearance) No Abnormality Assessed -Temperature (Karen-wound Skin No Abnormality No Abnormality Appearance) (Pt Warm) (Pt Warm) -Tenderness on Palpation (Karen-wound Skin Appearance) -Ulcer Cleansing Soap and Water Soap and Water -Foul Odor after Cleansing No No -Anesthetic Used 5% Lidocaine 5% Lidocaine Gel Gel Left Calf (cm) 35 31 Left Ankle (cm) 20 20.5 WC - Nurse 2 - General Ulcer CM Notes Start: 04/25/24 10:20 Freq: Status: Active Protocol: Activity Type Activity Date Activity User E-sign Co-sign Detail Recorded Client Recorded Date Recorded By Document 04/25/24 10:31 [id number] 04/25/24 10:35 Document 05/02/24 10:49 [id number] 05/02/24 10:51 Document 05/09/24 10:32 [id number] 05/09/24 10:35 Document 05/16/24 11:22 JF [id number] 05/16/24 11:23 JF Document 05/23/24 10:34 DS [id number] 05/23/24 10:36 DS 04/25/24 05/02/24 05/09/24 10:31 10:49 10:32 Wound Center Nurse 2 #3 L Calf cluster -Time 10:31 10:49 10:32 -Correct Patient Yes Yes Yes -Correct Side, Site, Position Yes Yes Yes -Correct Procedure Yes Yes Yes -Procedure Performed Yes Yes Yes -Type of Procedure Debridement Debridement Debridement -Clinical Debridement Subcutaneous Subcutaneous Subcutaneous -Tissue Removed Subcutaneous Subcutaneous Subcutaneous -Post Debridement (cm) - Length 3.0 2.8 2.4 -Post Debridement (cm) - Width 2.0 1.7 1.7 -Post Debridement (cm) - Depth 0.2 0.1 0.1 -Total Square (Post) (cm) 6.00 4.76 4.08 -Area of Debridement (cm) - Length 3.0 2.8 2.4 -Area of Debridement (cm) - Width 2.0 1.7 1.7 -Total Square (Area) (cm) 6.00 4.76 4.08 -Tunneling No No No -Undermining/Tunneling No No No -Circular Undermining No No No -Wound/Ulcer Outcome Not Healed Not Healed Not Healed -Ulcer Cleansing Rinsed/ Rinsed/ Rinsed/ Irrigated with Irrigated with Irrigated with Saline Saline Saline -Foul Odor after Cleansing No No No -Bioengineered Tissue No No No -Bleeding Controlled with Pressure Pressure Pressure -Treatment Response Procedure Procedure Procedure Tolerated Well Tolerated Well Tolerated Well -Offloading No No No -Debridement - Subq, 1st 20sq cm Yes Yes Yes Pain Scale: 0-10 Numeric Is Patient Pain Free? Yes Yes Yes 05/16/24 12 11:22 10:34 Wound Center Nurse 2 #3 L Calf cluster -Time 11:22 10:34 -Correct Patient Yes Yes -Correct Side, Site, Position Yes Yes -Correct Procedure Yes Yes -Procedure Performed Yes Yes -Type of Procedure Debridement Debridement -Clinical Debridement Subcutaneous Subcutaneous -Tissue Removed Subcutaneous Subcutaneous -Post Debridement (cm) - Length 2.2 1.8 -Post Debridement (cm) - Width 1.5 1.5 -Post Debridement (cm) - Depth 0.1 0.1 -Total Square (Post) (cm) 3.30 2.70 -Area of Debridement (cm) - Length 2.2 1.8 -Area of Debridement (cm) - Width 1.5 1.5 -Total Square (Area) (cm) 3.30 2.70 -Tunneling No No -Undermining/Tunneling No No -Circular Undermining No No -Wound/Ulcer Outcome Not Healed Not Healed -Ulcer Cleansing Rinsed/ Rinsed/ Irrigated with Irrigated with Saline Saline -Foul Odor after Cleansing No -Bioengineered Tissue No No -Bleeding Controlled with Pressure Pressure -Treatment Response Procedure Procedure Tolerated Well Tolerated Well -Offloading No -Debridement - Subq, 1st 20sq cm Yes Yes Pain Scale: 0-10 Numeric Is Patient Pain Free? Yes Yes - Nurse 3 - General Ulcer D/C NN Start: 04/25/24 10:20 Freq: Status: Active Protocol: Activity Type Activity Date Activity User E-sign Co-sign Detail Recorded Client Recorded Date Recorded By Document 04/25/24 10:59 DL [id number] 04/25/24 11:01 DL Document 04/29/24 12:07 DS [id number] 04/29/24 12:24 DS Document 05/02/24 11:11 KW [id number] 05/02/24 11:12 KW Document 05/09/24 10:52 ML [id number] 05/09/24 10:53 ML Edit Result 05/09/24 10:52 ML (1) [id number] 05/17/24 08:10 JF Document 05/16/24 11:35 BMF [id number] 05/16/24 11:36 BMF (1) Left - Multi-Layered Wrap Application Multi-Layer Comp - => Multi-Layer Comp - Right ($) => Left ($) 04/25/24 04/29/24 05/02/24 10:59 12:07 11:11 Wound Care Center Nurse 3 #3 L Calf cluster -Ulcer Cleansing Rinsed/ Soap and Water Rinsed/ Irrigated with Irrigated with Saline Saline -Foul Odor after Cleansing No -Primary Dressing Applied Optilok 6.5x10 Optilok 8x12, Optilok 6.5x10 Promogran Alix Matter -Other Dressing alix pt own alix -Primary Dressing Covered/Secured with Dry Gauze & Dry Gauze & Roll Gauze Roll Gauze, Secured with Tape -Optilok 6.5x10 1 1 -Optilok 8x12 1 -Promogran Alix Matter 0 Left -Lotion applied to leg before Yes compression wrap -Multi-Layered Wrap Application Multi-Layer Multi-Layer Multi-Layer Comp - Left ($) Comp - Left ($) Comp - Left ($) Treatment Response Procedure Tolerated Well Pain Scale: 0-10 Numeric Is Patient Pain Free? Yes Yes Yes - Visit Discharge Discharge Condition Stable Stable Stable Ambulatory Status Ambulatory Ambulatory Ambulatory Transportation Private Auto Private Auto Private Auto Medication Reconcilliation completed & No provided to patient/care provider Clinical Summary of Care Provided Yes 05/09/24 05/16/24 10:52 11:35 Wound Care Center Nurse 3 #3 L Calf cluster -Ulcer Cleansing Rinsed/ Rinsed/ Irrigated with Irrigated with Saline Saline -Foul Odor after Cleansing No -Primary Dressing Applied Promogran Alix Matter -Other Dressing brought alix alix from home -Primary Dressing Covered/Secured with Dry Gauze & Roll Gauze, Secured with Tape -Optilok 6.5x10 -Optilok 8x12 -Promogran Alix Matter 0 Left -Lotion applied to leg before compression wrap -Multi-Layered Wrap Application Multi-Layer Multi-Layer Comp - Left ($) Comp - Left ($) Treatment Response Procedure Tolerated Well Pain Scale: 0-10 Numeric Is Patient Pain Free? 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: CODE(S): L97.902 - Non-pressure chronic ulcer of unspecified part of unspecified lower leg with fat layer exposed QUALIFIERS: Laterality: left Qualified Code(s): L97.922 - Non-pressure chronic ulcer of unspecified part of left lower leg with fat layer exposed (2) Contusion of left lower leg, sequela: CODE(S): S80.12XS - Contusion of left lower leg, sequela (3) Hematoma: CODE(S): T14.8XXA - Other injury of unspecified body region, initial encounter (4) Chronic anticoagulation: CODE(S): Z79.01 - long term acute care registered nurse (current) use of 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s PLAN: Plan She has had 10 applications of Theraskin, the last product was placed 11/16/23. Wound care - Continue Alix cover with ABD. 3M 2 layer wrap for compression on the left leg. She wears a double tubigrip on the right lower extremity. She will leave the 3M 2 layer wrap on the left in place. It is not to get wet. Encouraged protein supplementation to help with wound healing. She has been using Daniel. Encouraged her to consider being referred for an evaluation for a skin graft. She states that she will think about it. She will follow up in one week with me. Instructed her to come in sooner if the wrap starts to slide down.
--- NOTE | 2024-05-30 09:51 | WC ---
PHOTO 05/23/24 LEFT CALF CLUSTER
== END 2024-05-24 23:59 | disposition home or self-care (01) ==
LOC: WC 10:15
PROVIDERS: PCP Family Medicine Geriatric Medicine; Referring Provider Family Medicine Geriatric Medicine; Visit Provider Nurse Practitioner Family
DX: L97.922 Non-pressure chronic ulcer of unspecified part of left lower leg with fat layer exposed (principal); R60.0 Localized edema; S80.12XS Contusion of left lower leg, sequela; T14.8XXA Other injury of unspecified body region, initial encounter; Z79.01 Long term (current) use of 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s; Z86.718 Personal history of other venous thrombosis and embolism; Z95.0 Presence of cardiac pacemaker; I10 Essential (primary) hypertension; E78.5 Hyperlipidemia, unspecified
CPT/HCPCS: 11042; 29581

== ENCOUNTER → 2024-05-31 | Outpatient (CLI) | payer MEDICARE, OTHER, SELFPAY | END | disposition home or self-care (01) | LOC: PSN 12:24 | PROVIDERS: PCP Family Medicine Geriatric Medicine; Referring Provider Family Medicine Geriatric Medicine; Visit Provider Family Medicine Geriatric Medicine | DX: R68.83 Chills (without fever) (principal) | CPT/HCPCS: 87631 ==

== ENCOUNTER 2024-06-16 06:01 | Day surgery (SDC) | payer MEDICARE, OTHER, SELFPAY ==
--- NOTE | 2024-06-02 10:44 | PAT.ANE_ITS ---
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 When Was Last Pacemaker Check 05/08/2023 05/27/23 21:40 QUESTION #4 FULL TEXT: You/Your Family Experience fever (hyperthermia) with Anesthesia Last Oral Intake Last Oral intake: Last Oral Intake NPO since Meds taken in AM with sips of water? 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 Female Yes 06/02/24 09:18 HX of Motion Sickness No 06/02/24 09:18 HX of N/V After Surgery No 06/02/24 09:18 Non-Smoker Yes 06/02/24 09:18 Duration of Surgery greater Yes 06/02/24 09:18 than 60 minutes Number of Risk Factors 3 06/02/24 09:18 PONV Score Moderate Risk 06/02/24 09:18 Height & Weight Height & Weight: Anesthesia: Height & Weight Height 5 ft 6 in 04/04/24 14:04 Respiratory Assessment Respiratory Assessment - dispatcher chief coal slurry: Respiratory Tract Infection Hx - dispatcher chief coal slurry Hx Respiratory Tract Infection Yes: HEAD COLD/TREATED WITH 06/02/24 09:18 ANTIBIOTICS AND PREDNISONE STOP Sleep Apnea STOP Sleep Apnea - dispatcher chief coal slurry: STOP Sleep Apnea - dispatcher chief coal slurry Hx Hypertension Yes: CONTROLLED WITH MEDS 06/02/24 09:18 Hx Sleep Apnea Yes 06/02/24 09:18 CPAP Yes 06/02/24 09:18 BIPAP No 06/02/24 09:18 Do you snore loudly (louder than talking or can be heard Do you often feel tired/ fatigued/ sleepy during daytime? Has anyone observed you stop breathing during sleep? STOP Results Positive 06/02/24 09:18 QUESTION #5 FULL TEXT : Do you snore loudly (louder than talking or can be heard through closed doors)? 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 Specify any problems Hx of Preganancy in last 3 No 06/02/24 09:18 Months Nurse Filling Out Transfusion DSCHRIBER 06/02/24 09:18 & Questions: Date: 06/02/24 06/02/24 09:18 Time: 09:21 06/02/24 09:18 Patient unable to answer at this time (ie. confused, unrespo /Reproduction History /Reproductive History - dispatcher chief coal slurry: /Reproductive Hx- dispatcher chief coal slurry Hx Now No 06/02/24 09:18 Gestational Age (in weeks): EDC: Hx Hx Para Hx Section SAB No 06/02/24 09:18 [facility] Medical History (Updated 06/02/24 @ 09:34 by Karen José) History of steroid therapy Thyroid disease History of jaundice as a child Shortness of breath on exertion Wears glasses Bladder disease Back pain Stroke/cerebrovascular accident Non-smoker History of echocardiogram History of stress test History of pacemaker History of atrial fibrillation Cardiology follow-up encounter Open wound History of atrial fibrillation Incarcerated hernia Post-menopausal Chronic pain Rheumatoid arthritis CPAP (continuous positive airway pressure) dependence Coronary artery disease Hypertension DVT (deep venous thrombosis) Presence of cardiac pacemaker 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 [facility] current use of anticoagulant Non-rheumatic mitral regurgitation History of left heart catheterization (LHC) (~1989) History of cardioversion (~03/22/19) Essential hypertension Ulcer of left lower extremity with fat layer exposed Open wound of left lower extremity with complication Chronic anticoagulation Hematoma of left lower extremity Paroxysmal atrial fibrillation Hyperlipidemia Home Medications ?Medication ?Instructions ?Recorded ?Last Taken ?Type ascorbic acid (vitamin C) 1,000 mg 500 mg PO DAILY SUPPLEMENT 10/28/16 03/20/19 History tablet cholecalciferol (vitamin D3) 50 2,000 unit PO QODAY SUPPLEMENT 11/11/18 03/20/19 History mcg (2,000 unit) capsule L.acidoph,paracasei,B.animalis 10 1 ea PO DAILY GUT HEALTH 03/21/19 03/21/19 History billion cell capsule magnesium oxide 400 mg (241.3 mg 400 mg PO DAILY SUPPLEMENT 03/21/19 03/21/19 History magnesium) tablet methenamine hippurate 1 gram tablet 1 g PO BID UTI PREVENTION 06/14/20 Unknown History HYDRO EYE 1 tab PO DAILY EYE HEALTH 06/21/20 Unknown History levothyroxine 25 mcg tablet 12.5 mcg PO QODAY THYROID 12/12/21 Unknown History vitamin B complex 1 cap PO DAILY SUPPLEMENT 06/17/22 Unknown History apixaban 5 mg tablet (Eliquis) 5 mg PO DAILY 08/03/23 05/17/24 History vitamin A 3,000 mcg (10,000 unit) 10,000 unit PO .COMPLEX SUPPLEMENT 08/03/23 Unknown History capsule metoprolol tartrate 25 mg tablet 25 mg PO BID BLOOD PRESSURE #180 12/14/23 05/20/24 07:30 Rx tabs losartan 25 mg tablet 25 mg PO BID #180 tabs 01/28/24 05/20/24 Rx omeprazole 20 mg capsule,delayed 20 mg PO DAILY 06/02/24 Unknown History release Allergy/AdvReac Type Severity Reaction Status Date / Time No Known Allergies Allergy Verified 06/02/24 09:11 Family History Father CAD (coronary artery disease) Heart disease Mother Heart disease Hypertension Asthma Surgical History (Updated 06/02/24 @ 09:34 by Karen José) History of esophagogastroduodenoscopy (EGD) S/P small bowel resection History of eye surgery (~10/2021) History of cardiac radiofrequency ablation (RFA) (~01/15/17) Social History household members: none Smoking Status: Never smoker how long ago did patient quit smoking: Smoked for 2 years as a teen alcohol intake: never substance use type: does not use caffeine: No Audit: Pertinent Findings Pertinent Findings EKG Perinent findings: 02/17/2024 AV paced Stress test pertinent findings: 01/20/2022 negative EF 68% Echo (EF%) pertinent findings: 02/23/2024 normal size function EF 55% pulmonary artery pressure 55 mmHg mild pulmonary hypertension Consult pertinent findings: Cardiology 02/17/2024 valvular heart disease mild aortic stenosis trivial aortic valve insufficiency repeat echocardiogram performed on 02/23/2024 stable presence of cardiac pacemaker AV sequential rate 94 bpm paroxysmal atrial fibrillation chronic stable chronic anticoagulation Recommendation Anesthesia Recommendation Anesthesia recommendation: OPTIMIZED for anesthesia
[2024-06-16] VITALS (10 sets, daily range): BP systolic 135–164; BP diastolic 80–99; PULSE 80–92; RESP 16–17; TEMP 36.1–36.8; O2SAT 94–100; BMI 26.6
--- NOTE | 2024-06-16 06:48 | PRE.ANES_ITS ---
Assessment & Plan Anesthesia* Anesthesia Assessment Anesthesia Assessment: Discussed sedation and/or anesthesia options, risks, benefits, and alternatives with patient/parents/legal guardian/POA. Questions invited. The patient/parents/legal guardian/POA seems to understand and agrees to proceed with anesthesia plan. Reviewed the physical assessment, medical history, allergy history and patient home medications list prior to surgery/procedure/anesthetic and documented any changes. Performed airway and anesthesia risk assessments. Anesthesia Focused Assessment* Temperature: 98.2 F Pulse Rate: 92 Blood Pressure: 148/87 Respiratory Rate: 17 Pulse Ox: 100 Focused Labs Anesthesia Preop lab: CBC WBC 9.9 K/mm3 (4.4-11.0) 05/10/24 10:34 RBC 4.77 M/mm3 (4.2-5.4) 05/10/24 10:34 Hgb 14.4 g/dL (12.0-15.0) 05/10/24 10:34 Hct 45.1 % (37-47) 05/10/24 10:34 Plt Count 189 K/mm3 (150-450) 05/10/24 10:34 CHEMISTRY Potassium 4.1 mmol/L (3.5-5.1) 05/10/24 10:34 Sodium 140 mmol/L (136-145) 05/10/24 10:34 Magnesium 2.4 mg/dL (1.6-2.6) 06/15/23 07:15 BUN 23 mg/dL (7-18) H 05/10/24 10:34 Creatinine 0.95 mg/dL (0.55-1.02) 05/10/24 10:34 Glucose 139 mg/dL (74-106) H 05/10/24 10:34 TSH 2.660 uIU/mL (0.358-3.740) 05/10/24 10:34 COAG PT 16.7 SECONDS (11.7-14.9) H 06/18/23 05:40 INR 1.8 09/27/20 16:51 Pre-Assessment Diagnosis/Proposed Procedure Planned Operative Procedure(s): ROBOTIC LEFT INGUINAL HERNIA WITH MESH Anesthesia History Anesthesia History - iron pellet tester: Anesthesia History - iron pellet tester Hx Hospitalization Yes: 05/2023 HEMATOMA/LEFT 06/02/24 09:18 POSTERIOR LEG Any Problems With Anesthesia No 06/02/24 09:18 Cholinesterase deficiency No 06/02/24 09:18 You/Your Family Experience No 06/02/24 09:18 fever (hyperthermia) with Relationship Recent Exposure to Contagious No 06/16/24 06:35 Disease Does patient have nerve No 06/02/24 09:18 stimulator Patient instructed to have device shut off --Does patient have Pacemaker Yes 06/16/24 06:35 or ICD? When Was Last Pacemaker Check 05/08/2023 05/27/23 21:40 QUESTION #4 FULL TEXT: You/Your Family Experience fever (hyperthermia) with Anesthesia Last Oral Intake Last Oral intake: Last Oral Intake NPO since 05:30 06/16/24 06:35 Meds taken in AM with sips of Yes 06/16/24 06:35 water? Meds patient instructed to lisinopril,metoprolol 06/16/24 06:35 take am of surgery PONV PONV - iron pellet tester: PONV - iron pellet tester Female Yes 06/02/24 09:18 HX of Motion Sickness No 06/02/24 09:18 HX of N/V After Surgery No 06/02/24 09:18 Non-Smoker Yes 06/02/24 09:18 Duration of Surgery greater Yes 06/02/24 09:18 than 60 minutes Number of Risk Factors 3 06/02/24 09:18 PONV Score Moderate Risk 06/02/24 09:18 Height & Weight Height & Weight: Anesthesia: Height & Weight Height 5 ft 6 in 06/16/24 06:35 Weight: 75 kg 06/16/24 06:35 Body Mass Index (BMI) 26.6 06/16/24 06:35 Respiratory Assessment Respiratory Assessment - iron pellet tester: Respiratory Tract Infection Hx - iron pellet tester Hx Respiratory Tract Infection Yes: HEAD COLD/TREATED WITH 06/02/24 09:18 ANTIBIOTICS AND PREDNISONE STOP Sleep Apnea STOP Sleep Apnea - iron pellet tester: STOP Sleep Apnea - iron pellet tester Hx Hypertension Yes: CONTROLLED WITH MEDS 06/02/24 09:18 Hx Sleep Apnea Yes 06/02/24 09:18 CPAP Yes 06/02/24 09:18 BIPAP No 06/02/24 09:18 Do you snore loudly (louder than talking or can be heard Do you often feel tired/ fatigued/ sleepy during daytime? Has anyone observed you stop breathing during sleep? STOP Results Positive 06/02/24 09:18 QUESTION #5 FULL TEXT : Do you snore loudly (louder than talking or can be heard through closed doors)? 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 Specify any problems Hx of Preganancy in last 3 No 06/02/24 09:18 Months Nurse Filling Out Transfusion [email or web address] 06/02/24 09:18 & Questions: Date: 06/02/24 06/02/24 09:18 Time: 09:21 06/02/24 09:18 Patient unable to answer at this time (ie. confused, unrespo /Reproduction History /Reproductive History - iron pellet tester: /Reproductive Hx- iron pellet tester Hx Now No 06/02/24 09:18 Gestational Age (in weeks): EDC: Hx Hx Para Hx Section SAB No 06/02/24 09:18 Active Medications Active Medications: Current Medications Generic Name Dose Route Start Last Admin Trade Name Freq PRN Reason Stop Dose Admin Cefazolin Sodium 2 gm/ N/A 20 mls @ 400 mls/hr 06/16/24 07:30 IV 06/16/24 07:32 PREOP ONE Sodium Chloride 1,000 mls @ 15 mls/hr 06/16/24 06:25 IV 06/21/24 19:44 .Q48H CORTES Protocol PFSH Medical History History of steroid therapy Thyroid disease History of jaundice as a child Shortness of breath on exertion Wears glasses Bladder disease Back pain Stroke/cerebrovascular accident Non-smoker History of echocardiogram History of stress test History of pacemaker History of atrial fibrillation Cardiology follow-up encounter Open wound History of atrial fibrillation Incarcerated hernia Post-menopausal Chronic pain Rheumatoid arthritis CPAP (continuous positive airway pressure) dependence Coronary artery disease Hypertension DVT (deep venous thrombosis) Presence of cardiac pacemaker 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 Non-rheumatic mitral regurgitation History of left heart catheterization (LHC) (~1989) History of cardioversion (~03/22/19) Essential hypertension Ulcer of left lower extremity with fat layer exposed Open wound of left lower extremity with complication Chronic anticoagulation Hematoma of left lower extremity Paroxysmal atrial fibrillation Hyperlipidemia Home Medications ?Medication ?Instructions ?Recorded ?Last Taken ?Type ascorbic acid (vitamin C) 1,000 mg 500 mg PO DAILY SUPPLEMENT 10/28/16 06/15/24 History tablet cholecalciferol (vitamin D3) 50 2,000 unit PO QODAY SUPPLEMENT 11/11/18 06/15/24 History mcg (2,000 unit) capsule L.acidoph,paracasei,B.animalis 10 1 ea PO DAILY GUT HEALTH 03/21/19 06/15/24 History billion cell capsule magnesium oxide 400 mg (241.3 mg 400 mg PO DAILY SUPPLEMENT 03/21/19 06/15/24 History magnesium) tablet methenamine hippurate 1 gram tablet 1 g PO BID UTI PREVENTION 06/14/20 06/15/24 History HYDRO EYE 1 tab PO DAILY EYE HEALTH 06/21/20 06/15/24 History levothyroxine 25 mcg tablet 12.5 mcg PO QODAY THYROID 12/12/21 06/15/24 History vitamin B complex 1 cap PO DAILY SUPPLEMENT 06/17/22 06/15/24 History apixaban 5 mg tablet (Eliquis) 5 mg PO DAILY 08/03/23 06/13/24 History vitamin A 3,000 mcg (10,000 unit) 10,000 unit PO .COMPLEX SUPPLEMENT 08/03/23 06/15/24 History capsule metoprolol tartrate 25 mg tablet 25 mg PO BID BLOOD PRESSURE #180 12/14/23 06/16/24 Rx tabs losartan 25 mg tablet 25 mg PO BID #180 tabs 01/28/24 06/16/24 Rx omeprazole 20 mg capsule,delayed 20 mg PO DAILY 01/09/25 01/22/25 History release Allergy/AdvReac Type Severity Reaction Status Date / Time No Known Allergies Allergy Verified 06/16/24 06:33 Family History Father CAD (coronary artery disease) Heart disease Mother Heart disease Hypertension Asthma Surgical History History of esophagogastroduodenoscopy (EGD) S/P small bowel resection History of eye surgery (~10/2021) History of cardiac radiofrequency ablation (RFA) (~01/15/17) Social History household members: none Smoking Status: Never smoker how long ago did patient quit smoking: Smoked for 2 years as a teen alcohol intake: never substance use type: does not use caffeine: No Review of Systems (Anesthesia) ROS Narrative System reviewed and no additional complaints, except as documented.
--- NOTE | 2024-06-16 06:50 | HP.PCM_ITS ---
History and Physical Date of Admission: 06/16/24 Intake Vital Signs 03/18/2411:30 04/04/2414:04 Height 5 ft 6 in 5 ft 6 in Weight: 166 lb BMI 26.8 BP 139/86 H Blood Pressure Location Lt brachial Position Sitting Respiration 18 Intake Visit Reasons: INGUINAL HERNIA Chief Complaint: Abn CT Cath Laboratory Technician Required: No Is patient in pain?: No Allergies No Known Allergies Allergy (Verified 04/04/24 14:04) Medications ?Medication ?Instructions ?Recorded ?Confirmed ?Type ascorbic acid (vitamin C) 1,000 mg 500 mg PO BID SUPPLEMENT 10/28/16 04/04/24 History tablet cholecalciferol (vitamin D3) 50 2,000 unit PO QODAY SUPPLEMENT 11/11/18 04/04/24 History mcg (2,000 unit) capsule L.acidoph, paracasei,B. lactis 10 1 ea PO DAILY GUT HEALTH 03/21/19 04/04/24 History billion cell capsule magnesium oxide 400 mg (241.3 mg 400 mg PO DAILY SUPPLEMENT 03/21/19 04/04/24 History magnesium) tablet methenamine hippurate 1 gram tablet 1 g PO DAILY UTI PREVENTION 06/14/20 04/04/24 History HYDRO EYE 1 tab PO DAILY EYE HEALTH 06/21/20 04/04/24 History levothyroxine 25 mcg tablet 12.5 mcg PO QODAY THYROID 12/12/21 04/04/24 History vitamin B complex 1 cap PO DAILY SUPPLEMENT 06/17/22 04/04/24 History apixaban 5 mg tablet (Eliquis) 5 mg PO DAILY 08/03/23 04/04/24 History vitamin A 3,000 mcg (10,000 unit) 10,000 unit PO .COMPLEX SUPPLEMENT 08/03/23 04/04/24 History capsule metoprolol tartrate 25 mg tablet 25 mg PO BID BLOOD PRESSURE #180 12/14/23 04/04/24 Rx tabs losartan 25 mg tablet 25 mg PO BID #180 tabs 01/28/24 04/04/24 Rx Have you fallen in the past year?: No PFSH Medical History History of atrial fibrillation Incarcerated hernia Post-menopausal Chronic pain Rheumatoid arthritis CPAP (continuous positive airway pressure) dependence Sleep apnea Coronary artery disease Hypertension DVT (deep venous thrombosis) Presence of cardiac pacemaker 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 Non-rheumatic mitral regurgitation History of left heart catheterization (LHC) (~1989) History of cardioversion (~03/22/19) Essential hypertension History of CVA (cerebrovascular accident) (~2012) Ulcer of left lower extremity with fat layer exposed Open wound of left lower extremity with complication Chronic anticoagulation Hematoma of left lower extremity Paroxysmal atrial fibrillation Hyperlipidemia Surgical History S/P small bowel resection History of eye surgery (~10/2021) History of cardiac radiofrequency ablation (RFA) (~01/15/17) Family History Father CAD (coronary artery disease) Heart diseaseMother Heart disease Hypertension Asthma Social History household members: none Smoking Status: Former smoker how long ago did patient quit smoking: Smoked for 2 years as a teen alcohol intake: never substance use type: does not use caffeine: No HPI HPI HPI: Patient is an 83-year-old female here for both left inguinal hernia and abnormal CT showing gastric dilation. She does not feel that she is having any issues eating or drinking but her CT scan showed dilated stomach and esophagus with concern for gastric outlet obstruction. The patient also had a large left inguinal hernia containing small bowel on CT scan. She is not reporting many issues with this but she does have a large inguinal hernia. ROS General General: No weight change, appetite, fatigue, colon cancer, breast cancer or weakness HEENT HEENT: Yes difficulty swallowing; No eye injury, eye surgery, swollen glands or hoarseness Endo Endocrine: Yes thyroid disease; No diabetes mellitus, thyroid cancer, Hair loss, heat intolerance or cold intolerance Skin Skin: No rash or changing moles Breast Breast: No left breast lump, right breast lump, nipple discharge, breast pain, abnormal mammogram, abnormal US or breast enlargement Musc Musculoskeletal: No back problems, arthritis, rheumatoid arthritis, gout or joint pain Cardio Cardiovascular: Yes pacemaker, heart disease, atrial fibrillation and high blood pressure; No murmur, heart attack, heart stent, palpitations, shortness of breat with exertion or chest pain Psych Psychiatric: No depression, anxiety or hearing voices Resp Respiratory: No shortness of breath, No sleep apnea, Yes cough, No COPD, No asthma, No emphysema and No wheezing Gastro Gastrointestinal: No abdominal pain, No nausea or vomiting, No diarrhea, No constipation, No blood in stool, No acid reflux, No hemorrhoids, No ulcers, No gallbladder problem and No black,tarry stools Kris Hematologic: No blood thinners, No blood disorders, No bleeding, No anemia and No blood clots Neuro Neurologic: No system reviewed and no additional complaints, except as documented, No as per HPI, No abnormal gait, No abnormal hearing, No abnormal movements, No abnormal speech, No behavioral changes, No burning sensations, No confusion, No convulsions, No disequilibrium, No dizziness, No localized weakness, No frequent falls, No headache(s), No lack of coordination, No loss of vision, No memory loss, No numbness, No other visual disturbances, No radicular pain, No restless legs, No sensory deficit, No syncope, No tingling, No tremor(s), No weakness and No other Exam Const General: cooperative Orientation: alert and oriented x3 [facility] Head: normal to inspection Neck Neck: normal visual inspection and full ROM Chest Chest palpation & inspection: normal inspection of the chest Resp Effort & Inspection: normal respiratory effort Auscultation: clear to auscultation bilaterally Cardio Rate: regular rate Rhythm: regular rhythm GI Inspection: non-distended Palpation: soft, hernia indirect inguinal on the left and nontender Skin General: no rashes or lesions noted Neuro General: patient alert and patient oriented x3 Extrem General: full ROM Psych Appearance: grossly normal Mental Status: mental status grossly normal Assessment and Plan Assessment and Plan (1) Left inguinal hernia: Status: Acute Plan: Patient has a large left inguinal hernia containing small bowel. I did recommend repair as it is containing small bowel loops and it is at risk of obstruction or incarceration. The hernia is easily reducible. I recommended a robotic assisted repair. I discussed this with her in detail. I discussed the risks including but not limited to bleeding, infection, injury other organs, recurrence, mesh placement. I discussed all of postoperative care with her. Patient is willing to proceed in May. (2) Gastric outlet obstruction: Status: Acute Plan: Patient had dilation of her stomach and esophagus on CT scan recently. There was concern for gastric outlet obstruction and that her PCP sent her here for EGD to evaluate. I explained endoscopy in detail to the patient. I explained the risks including but not limited to stroke or heart attack with anesthesia, perforation of the GI tract, bleeding, infection. I explained that any of these could necessitate further emergency surgery. The patient understands and all questions were answered sufficiently. The patient wishes to proceed with procedure. Patient will hold her Eliquis prior to both procedures for 2 days Arben Joaquin MD Pager: [facility] [address] [place] [address] [address] [place] [address] Office: I have examined the patient and the H&P has been reviewed. There are no clinical changes since date of exam.
--- NOTE | 2024-06-16 06:55 | PRE.ANES_ITS ---
ASA Classification* ASA Classification ASA Classification: 3 Assessment & Plan Anesthesia* Anesthesia Assessment Anesthesia Assessment: Discussed sedation and/or anesthesia options, risks, benefits, and alternatives with patient/parents/legal guardian/POA. Questions invited. The patient/parents/legal guardian/POA seems to understand and agrees to proceed with anesthesia plan. Reviewed the physical assessment, medical history, allergy history and patient home medications list prior to surgery/procedure/anesthetic and documented any changes. Performed airway and anesthesia risk assessments. Anesthesia Type Anesthesia Type: General History Source History Obtained from:: Patient and Chart Anesthesia Focused Assessment* Temperature: 98.2 F Pulse Rate: 92 Blood Pressure: 148/87 Respiratory Rate: 17 Pulse Ox: 100 Oxygen Delivery Method: Room Air Airway Assessment Mouth opens: >3 cm Mallampati Score: III Focused Labs Anesthesia Preop lab: CBC WBC 9.9 K/mm3 (4.4-11.0) 05/10/24 10:34 RBC 4.77 M/mm3 (4.2-5.4) 05/10/24 10:34 Hgb 14.4 g/dL (12.0-15.0) 05/10/24 10:34 Hct 45.1 % (37-47) 05/10/24 10:34 Plt Count 189 K/mm3 (150-450) 05/10/24 10:34 CHEMISTRY Potassium 4.1 mmol/L (3.5-5.1) 05/10/24 10:34 Sodium 140 mmol/L (136-145) 05/10/24 10:34 Magnesium 2.4 mg/dL (1.6-2.6) 06/15/23 07:15 BUN 23 mg/dL (7-18) H 05/10/24 10:34 Creatinine 0.95 mg/dL (0.55-1.02) 05/10/24 10:34 Glucose 139 mg/dL (74-106) H 05/10/24 10:34 TSH 2.660 uIU/mL (0.358-3.740) 05/10/24 10:34 COAG PT 16.7 SECONDS (11.7-14.9) H 06/18/23 05:40 INR 1.8 09/27/20 16:51 Pre-Assessment Diagnosis/Proposed Procedure Planned Operative Procedure(s): ROBOTIC LEFT INGUINAL HERNIA WITH MESH Anesthesia History Anesthesia History - procurement buyer: Anesthesia History - procurement buyer Hx Hospitalization Yes: 05/2023 HEMATOMA/LEFT 06/02/24 09:18 POSTERIOR LEG Any Problems With Anesthesia No 06/02/24 09:18 Cholinesterase deficiency No 06/02/24 09:18 You/Your Family Experience No 06/02/24 09:18 fever (hyperthermia) with Relationship Recent Exposure to Contagious No 06/16/24 06:35 Disease Does patient have nerve No 06/02/24 09:18 stimulator Patient instructed to have device shut off --Does patient have Pacemaker Yes 06/16/24 06:35 or ICD? When Was Last Pacemaker Check 05/08/2023 05/27/23 21:40 QUESTION #4 FULL TEXT: You/Your Family Experience fever (hyperthermia) with Anesthesia Last Oral Intake Last Oral intake: Last Oral Intake NPO since 05:30 06/16/24 06:35 Meds taken in AM with sips of Yes 06/16/24 06:35 water? Meds patient instructed to lisinopril,metoprolol 06/16/24 06:35 take am of surgery PONV PONV - procurement buyer: PONV - procurement buyer Female Yes 06/02/24 09:18 HX of Motion Sickness No 06/02/24 09:18 HX of N/V After Surgery No 06/02/24 09:18 Non-Smoker Yes 06/02/24 09:18 Duration of Surgery greater Yes 06/02/24 09:18 than 60 minutes Number of Risk Factors 3 06/02/24 09:18 PONV Score Moderate Risk 06/02/24 09:18 Height & Weight Height & Weight: Anesthesia: Height & Weight Height 5 ft 6 in 06/16/24 06:35 Weight: 75 kg 06/16/24 06:35 Body Mass Index (BMI) 26.6 06/16/24 06:35 Respiratory Assessment Respiratory Assessment - procurement buyer: Respiratory Tract Infection Hx - procurement buyer Hx Respiratory Tract Infection Yes: HEAD COLD/TREATED WITH 06/02/24 09:18 ANTIBIOTICS AND PREDNISONE STOP Sleep Apnea STOP Sleep Apnea - procurement buyer: STOP Sleep Apnea - procurement buyer Hx Hypertension Yes: CONTROLLED WITH MEDS 06/02/24 09:18 Hx Sleep Apnea Yes 06/02/24 09:18 CPAP Yes 06/02/24 09:18 BIPAP No 06/02/24 09:18 Do you snore loudly (louder than talking or can be heard Do you often feel tired/ fatigued/ sleepy during daytime? Has anyone observed you stop breathing during sleep? STOP Results Positive 06/02/24 09:18 QUESTION #5 FULL TEXT : Do you snore loudly (louder than talking or can be heard through closed doors)? Tobacco Use History Tobacco Use History - procurement buyer: Tobacco Use History - procurement buyer Tobacco Use Non-smoker 10/08/20 08:06 Smoking Status Never smoker 06/02/24 09:18 Hx Tobacco Use No 06/02/24 09:18 Years Smoking Packs Smoked per Day Smoking Cessation Date was within the last 15 years Hx Smoking Cessation Date Hx Smoking Cessation Counseling Hematologic Medial History Hematologic Hx - procurement buyer: Hematologic Medical Hx - documentation liaison Hx of Blood Transfusion Yes 06/02/24 09:18 Hx of Transfusion in last 3 No 06/02/24 09:18 Months Date of Last Transfusion (if within last 3 months) Ever experience any problems No 06/02/24 09:18 with transfusion(s)? Specify any problems Hx of Preganancy in last 3 No 06/02/24 09:18 Months Nurse Filling Out Transfusion DSCHRIBER 06/02/24 09:18 & Questions: Date: 06/02/24 06/02/24 09:18 Time: 09:21 06/02/24 09:18 Patient unable to answer at this time (ie. confused, unrespo /Reproduction History /Reproductive History - procurement buyer: /Reproductive Hx- procurement buyer Hx Now No 06/02/24 09:18 Gestational Age (in weeks): EDC: Hx Hx Para Hx Section SAB No 06/02/24 09:18 Active Medications Active Medications: Current Medications Generic Name Dose Route Start Last Admin Trade Name Freq PRN Reason Stop Dose Admin Cefazolin Sodium 2 gm/ N/A 20 mls @ 400 mls/hr 06/16/24 07:30 IV 06/16/24 07:32 PREOP ONE Sodium Chloride 1,000 mls @ 15 mls/hr 06/16/24 06:25 IV 06/21/24 19:44 .Q48H [facility] Protocol PFSH Medical History History of steroid therapy Thyroid disease History of jaundice as a child Shortness of breath on exertion Wears glasses Bladder disease Back pain Stroke/cerebrovascular accident Non-smoker History of echocardiogram History of stress test History of pacemaker History of atrial fibrillation Cardiology follow-up encounter Open wound History of atrial fibrillation Incarcerated hernia Post-menopausal Chronic pain Rheumatoid arthritis CPAP (continuous positive airway pressure) dependence Coronary artery disease Hypertension DVT (deep venous thrombosis) Presence of cardiac pacemaker 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 Non-rheumatic mitral regurgitation History of left heart catheterization (LHC) (~1989) History of cardioversion (~03/22/19) Essential hypertension Ulcer of left lower extremity with fat layer exposed Open wound of left lower extremity with complication Chronic anticoagulation Hematoma of left lower extremity Paroxysmal atrial fibrillation Hyperlipidemia Home Medications ?Medication ?Instructions ?Recorded ?Last Taken ?Type ascorbic acid (vitamin C) 1,000 mg 500 mg PO DAILY SUPPLEMENT 10/28/16 06/15/24 History tablet cholecalciferol (vitamin D3) 50 2,000 unit PO QODAY SUPPLEMENT 11/11/18 06/15/24 History mcg (2,000 unit) capsule L.acidoph,paracasei,B.animalis 10 1 ea PO DAILY GUT HEALTH 03/21/19 06/15/24 History billion cell capsule magnesium oxide 400 mg (241.3 mg 400 mg PO DAILY SUPPLEMENT 03/21/19 06/15/24 History magnesium) tablet methenamine hippurate 1 gram tablet 1 g PO BID UTI PREVENTION 06/14/20 06/15/24 History HYDRO EYE 1 tab PO DAILY EYE HEALTH 06/21/20 06/15/24 History levothyroxine 25 mcg tablet 12.5 mcg PO QODAY THYROID 12/12/21 06/15/24 History vitamin B complex 1 cap PO DAILY SUPPLEMENT 06/17/22 06/15/24 History apixaban 5 mg tablet (Eliquis) 5 mg PO DAILY 08/03/23 06/13/24 History vitamin A 3,000 mcg (10,000 unit) 10,000 unit PO .COMPLEX SUPPLEMENT 08/03/23 06/15/24 History capsule metoprolol tartrate 25 mg tablet 25 mg PO BID BLOOD PRESSURE #180 12/14/23 06/16/24 Rx tabs losartan 25 mg tablet 25 mg PO BID #180 tabs 01/28/24 06/16/24 Rx omeprazole 20 mg capsule,delayed 20 mg PO DAILY 06/02/24 06/15/24 History release Allergy/AdvReac Type Severity Reaction Status Date / Time No Known Allergies Allergy Verified 06/16/24 06:33 Family History Father CAD (coronary artery disease) Heart disease Mother Heart disease Hypertension Asthma Surgical History History of esophagogastroduodenoscopy (EGD) S/P small bowel resection History of eye surgery (~10/2021) History of cardiac radiofrequency ablation (RFA) (~01/15/17) Social History household members: none Smoking Status: Never smoker how long ago did patient quit smoking: Smoked for 2 years as a teen alcohol intake: never substance use type: does not use caffeine: No Prior Cardiac Testing/Procedures Prior Cardiac Testing/Procedures: Echocardiogram (EF 55%; RVSP 55 PHTN) Addt'l Information Additional Findings: V-Pace EKG Review of Systems (Anesthesia) ROS Narrative System reviewed and no additional complaints, except as documented.
[2024-06-16] MEDS: Cefazolin 2 GM in Syringe IV (07:28)
[2024-06-16] MEDS: Bupivacaine Mpf 0.5% 30 ML VIAL (08:36)
--- NOTE | 2024-06-16 08:47 | PCM.POST.ANE ---
Anesthesia: Postop Eval I Current Vital Signs Temperature: 97.2 F Pulse Rate: 81 Blood Pressure: 164/99 Respiratory Rate: 16 Pulse Ox: 98 Oxygen Delivery Method: Room Air Assessment Airway patent: Yes Spontaneous unlabored respirations: Yes Mental status: Awake and Calm nausea: No Vomiting: No Anesthesia Complication: No Fluid Hydration Crystalloid volume administer (ml): 800 Total IV fluid infused: 800 Progress Note Anesthesia document: Postop Eval 1 completed: Yes
--- NOTE | 2024-06-16 08:49 | PCM.OPRPT ---
Operative Report (Standard) Operative Information Date of Procedure: 06/16/24 Pre-Operative Diagnosis: Left inguinal hernia Post-Operative Diagnosis: Left inguinal hernia Surgery/Procedure Performed: Robotic assisted laparoscopic left inguinal hernia repair with mesh health and fitness professor: Yes Tying In Machine Operator: Leonor Brower Tasks completed by customer relations assistant: Opening and Closing Type of Anesthesia: General/Regional RN Documented Start/Stop Times: Operation Date: 06/16/24 07:30 Case Time Into Pre-Op 06/16/24 06:16 Out of Pre-Op 06/16/24 07:24 Anesthesia Start 06/16/24 07:28 Into Room 06/16/24 07:28 Procedure Start 06/16/24 07:54 Procedure End 06/16/24 08:39 Anesthesia End 06/16/24 08:44 Out of Room 06/16/24 08:44 Into Recovery 06/16/24 08:47 Procedure Start Time: 07:54 Procedure Stop Time: 08:39 Select all DRAINS/GRAFTS/IMPLANTS that apply: Implanted device Implanted device details: ProGrip mesh Estimated Blood Loss: 10 Specimen collected: No Description of surgery: Patient was brought back to the operating room and general anesthesia was induced. The abdomen was prepped and draped in usual sterile fashion. A midline incision was made superior to her old incision and the fascia was grasped and elevated and a Veress needle was placed into the abdomen. The abdomen was insufflated to 15 mmHg. The Veress needle was removed and a port was placed into the abdomen. Camera was placed into the abdomen was inspected and there were no injuries from entry. Patient was placed in steep Trendelenburg position. Next under direct visualization an 8 mm port was placed in left lateral sidewall and right lateral sidewall. The robot was then docked. Using electrocautery scissors an incision was made in the peritoneum in the left lower quadrant and dissection was carried inferiorly until the hernia sac was fully dissected free and reduced. The patient also had a small direct hernia which was also reduced. The round ligament was doubly clipped and then divided. There was good hemostasis. Next the ProGrip mesh was placed over the defect and unfolded. It completely cover the defects with good coverage. Next the Stewart failure was reapproximated using a running 3 OV lock suture completely covering the mesh. The robot was undocked and the ports were removed. The abdomen was allowed to desufflate. The incisions were closed with interrupted 4-0 Monocryl suture and injected with local anesthetic. Steri-Strips and bandages were applied. Patient was taken to PACU in stable condition and tolerated the procedure well. Surgical Findings: Direct and indirect hernia in the left groin Complications Complications: No Admit VTE Documentation VTE Mechan Device Prophylaxis: SCD's
--- NOTE | 2024-06-16 08:53 | DCINST_ITS ---
Discharge Instructions Procedure Hernia Diet Discharge Diet: Light diet - advance as tolerated Activity Discharge Activity: May Not Drive (for 2-3 days or while taking narcotic pain meds.) and May Shower (with the bandage in place 1-2 days after surgery.) Lifting Restrictions: 20 pounds for 4 weeks. Additional Activity Instructions:: Climbing stairs is fine, walking is encouraged. Sitting in bed may be uncomfortable. Sitting up using your lateral muscles (sitting up sideways) is usually more comfortable. Do not drive, work heavy equipment of sign legal documents for 24 hours. Pain medications may cause nausea, you should typically eat light foods as you take your pain medications. Pain medications may also cause constipation. If you have difficulty with this, discuss with your doctor. Alternate ibuprofen and Tylenol for pain control, oxycodone for breakthrough pain. Resume Eliquis on Thursday Dressing / Incision Call your doctor if your incision/area has: Continuous Slow Oozing, Sudden Increased Bleeding, Increased Pain/ Swelling, Increased Redness and Foul Smelling Discharge Call your doctor if you observe: Fever of 101 or Higher Suture Line Care: Avoid Pulling/Pushing and Avoid Pinching/Bending Remove Dressing in: 2 days (Remove clear bandages in 2 days, remove Steri-Strips in 7 to 10 days.) Follow Up Care Please Follow Up With: Arben Joaquin MD When: Please call to schedule 2 week follow up appointment. [phone] Test Results: Test results from this visit will be discussed in further detail at your follow- up appointment, if applicable. Discharge Plan Admission Attending Provider: Arben Joaquin Primary Care Provider: Yaya Brandt Chi Instructions Print Language: Khmer Discharge Orders/Prescriptions Prescriptions: New oxycodone 5 mg Tablet 5 - 10 mg PO Q4H PRN PRN (Reason: Pain Score 4-10) 5 Days Qty: 10 0RF No Action cholecalciferol (vitamin D3) 2,000 unit capsule 2,000 unit PO QODAY levothyroxine 25 mcg tablet 12.5 mcg PO QODAY Eliquis 5 mg tablet 5 mg PO DAILY Patient Comments: TO STOP 2 DAYS PRIOR ascorbic acid (vitamin C) 1,000 MG tablet 500 mg PO DAILY magnesium oxide 400 MG tablet 400 mg PO DAILY L.acidoph,paracasei,B.animalis 1 EACH capsule 1 ea PO DAILY vitamin A 3,000 mcg (10,000 unit) capsule 10,000 unit PO .COMPLEX Rx Instructions: 10,000 units orally every 3 day; vitamin B complex Capsule 1 cap PO DAILY HYDRO EYE 1 tab PO DAILY methenamine hippurate 1 GM tablet 1 g PO BID omeprazole 20 mg capsule,delayed release(DR/EC) 20 mg PO DAILY metoprolol tartrate 25 mg tablet 25 mg PO BID Qty: 180 3RF losartan 25 mg tablet 25 mg PO BID Qty: 180 3RF Referrals / Follow Up: Yaya Brandt Chi, MD [Primary Care Provider] - Disposition Disposition (needs filled in before D/C Order can be placed): Home, Self Care
[2024-06-16] MEDS: Acetaminophen 325 MG Tablet 650 MG PO (09:56)
--- NOTE | 2024-06-16 19:03 | POSTOPAN2_ITS ---
Anesthesia Postop Eval I Sum Postop Eval Completion status Anesthesia document: Postop Eval 1 completed: Yes Anesthesia Postop Eval I Summary Anesthesia Postop Eval I Summary: Anesthesia Postop Eval I: Assessment Summary Airway patent Yes 06/16/24 08:48 TOLL LINE [email or web address] Spontaneous unlabored Yes 06/16/24 08:48 TOLL LINE REPAIRER.[email or web address] respirations Mental status Awake,Calm 06/16/24 08:48 TOLL LINE [email or web address] nausea No 06/16/24 08:48 TOLL LINE [email or web address].[email or web address] Vomiting No 06/16/24 08:48 TOLL LINE [email or web address] Anesthesia Postop Eval I: Fluid Summary Crystalloid volume administer 800 06/16/24 08:48 TOLL LINE [email or web address] (ml) Colloids volume administered ( ml) Blood Product volume administered (ml) Total IV fluid infused 800 06/16/24 08:48 TOLL LINE [email or web address].[email or web address] Anesthesia Postop Eval I: Summary Notes Anesthesia Complication No 06/16/24 08:48 TOLL LINE REPAIRER.[email or web address] Anesthesia Complication Comment: Post-operative progress note Anesthesia: Postop Eval II Evaluation Mental status: Awake and Calm Pain Level: 1 nausea: No Vomiting: No Complications Anesthesia Complication: No
--- NOTE | 2024-06-16 19:03 | PCM.POSTANE2 ---
Anesthesia Postop Eval I Sum Postop Eval Completion status Anesthesia document: Postop Eval 1 completed: Yes Anesthesia Postop Eval I Summary Anesthesia Postop Eval I Summary: Anesthesia Postop Eval I: Assessment Summary Airway patent Yes 06/16/24 08:48 WEATHERIZATION DIRECTOR.GDOTT Spontaneous unlabored Yes 06/16/24 08:48 WEATHERIZATION DIRECTOR.GDOTT respirations Mental status Awake,Calm 06/16/24 08:48 WEATHERIZATION DIRECTOR.GDOTT nausea No 06/16/24 08:48 WEATHERIZATION DIRECTOR.GDOTT Vomiting No 06/16/24 08:48 WEATHERIZATION DIRECTOR.GDOTT Anesthesia Postop Eval I: Fluid Summary Crystalloid volume administer 800 06/16/24 08:48 WEATHERIZATION DIRECTOR.GDOTT (ml) Colloids volume administered ( ml) Blood Product volume administered (ml) Total IV fluid infused 800 06/16/24 08:48 WEATHERIZATION DIRECTOR.GDOTT Anesthesia Postop Eval I: Summary Notes Anesthesia Complication No 06/16/24 08:48 WEATHERIZATION DIRECTOR.GDOTT Anesthesia Complication Comment: Post-operative progress note Anesthesia: Postop Eval II Evaluation Mental status: Awake and Calm Pain Level: 1 nausea: No Vomiting: No Complications Anesthesia Complication: No
== END 2024-06-16 13:29 | disposition home or self-care (01) ==
LOC: SDC 06:03 → AC 06:05
PROVIDERS: PCP Family Medicine Geriatric Medicine; Referring Provider Surgery; Visit Provider Surgery
PROC: 0YQ64ZZ Repair Left Inguinal Region, Percutaneous Endoscopic Approach (ICD-10-PCS; CPT 49650; principal; 2024-06-16 07:10)
DX: K40.90 Unilateral inguinal hernia, without obstruction or gangrene, not specified as recurrent (principal); M06.9 Rheumatoid arthritis, unspecified; I48.0 Paroxysmal atrial fibrillation; K31.1 Adult hypertrophic pyloric stenosis; I10 Essential (primary) hypertension; I34.0 Nonrheumatic mitral (valve) insufficiency; I25.10 Atherosclerotic heart disease of native coronary artery without angina pectoris; E07.9 Disorder of thyroid, unspecified; G89.29 Other chronic pain; G47.30 Sleep apnea, unspecified; Z86.718 Personal history of other venous thrombosis and embolism; Z86.73 Personal history of transient ischemic attack (TIA), and cerebral infarction without residual deficits; Z87.891 Personal history of nicotine dependence; Z79.01 Long term (current) use of 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s; Z79.899 Other long term (current) drug therapy; Z79.890 Hormone replacement therapy
CPT/HCPCS: 49650; S2900; 00840; J2405

== ENCOUNTER 2024-06-20 09:15 | Outpatient (RCR) | payer MEDICARE, OTHER, SELFPAY ==
[2024-05-25 00:24] VITALS: BP 142/70; PULSE 82; RESP 18; TEMP 36.7; BMI 27.6
[2024-05-30 10:16] VITALS: BP 163/88; PULSE 88; RESP 18; TEMP 36.1; BMI 27.6
[2024-06-06 10:22] VITALS: BP 185/91; PULSE 82; RESP 16; TEMP 36.6; BMI 27.6
--- NOTE | 2024-06-06 12:11 | PCM.WC.PN ---
History of Present Illness Date of Service: 06/06/24 Chief Complaint: Left lateral leg ulcer that was initially caused by trauma from bumping leg on edge of car. History of Wound: Patient is 83 year female who presents for further evaluation of an ulcer on her left posterolateral leg. She initially bumped her leg on her car frame when removing something from her car on 05/22/24 and needed sutures to her left anterior leg. She then developed increased pain, swelling and a hematoma to her left leg and was seen in the ED very early on 05/27/23. She is on chronic anticoagulation for Afib, her INR was 5.3 at that time. She was discharged home with follow up with her PCP later that day. She returned to the ED via squad later that day after she experienced a large amount of bleeding. The hematoma was evacuated in the ED under sedation. She was admitted to the hospital and she required transfusion of 1 unit PRBC when her hemoglobin dropped from 11 to 6.9. She was transferred to [facility] for a little while. She comes in today for further evaluation of her left posterolateral leg ulcer from a hematoma. She states she is doing well at home. Her daughter is helping her with her dressing changes. Wound care - Alix. 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 Wound cultures obtained 07/27/23 which were positive for Pseudomonas aeruginosa, MRSA, Corynebacterium striatum, and Anaerobic cocci. She was placed on Flagyl and finished them. She was placed on Levaquin and is tolerating them thus far. She was placed on Linezolid and stated she had some visual problems and stopped the antibiotic. Stopped the Clindamycin due severe heart burn. Re-cultured the ulcer on 08/25/23 and it was positive for Acinetobacter baumannii. Started her on Augmentin, which she has tolerated in the past. Arterial studies obtained 03/31/24 - Right GEOVANNA at digital level 0.92 (non compressible at posterior tib and dorsalis pedis). Left GEOVANNA 1.10. Triphasic Doppler waveforms are noted at ankle level bilaterally. Pulse-volume recordings appear satisfactory at all levels bilaterally. The resting right ankle-brachial index could not be determined due to the non-compressibility of the vasculature at ankle level on the right. The resting left ankle-brachial index is normal. Digital-brachial indices are normal bilaterally. There is evidence of arterial calcification at ankle level on the right. There is no evidence of significant arterial occlusive disease in the lower extremities bilaterally. Venous doppler obtained 03/31/24 - Deep veins of the lower extremities are bilaterally patent and compressible segmentally. There is no evidence of deep vein thrombosis on either side. The right sapheno-femoral junction is incompetent . The right great saphenous vein appears segmentally incompetent. The left great saphenous vein appears incompetent below the knee. The accessory saphenous vein in the right mid-thigh and mid-calf are incompetent. Chronic venous changes are noted in an accessory saphenous vein in the right calf. Today she denies fever, chills, nausea or vomiting. Her appetite is good. Patient was interested in advanced skin substitute grafts to help the ulcer to heal. She has had 10 applications of Theraskin. Progress of Wound: Left lateral leg ulcer is smaller in size. The wound bed is nice beefy pink color. She is tolerating the 3 M 2 layer wraps on her left leg and she has no edema. She is wearing a double tubigrip for her edema on her right lower extremity, she declines a 3 M 2 layer wrap on her left leg to help get her edema under controlled. Stressed importance keeping legs elevated while sitting to help with swelling. Objective Data Objective Data Vital Signs: Vital Signs Temp Pulse Resp BP O2 Del Method 97.9 F 82 16 185/91 H Room Air 06/06/24 10:22 06/06/24 10:22 06/06/24 10:22 06/06/24 10:06/06/24 10:22 Oxygen Delivery Method Room Air Weight: 170 lb 12.573 oz Body Mass Index (BMI) 27.6 Charges/Coding Procedures Integumentary 111xxx-113xx: [id number] Humera subq tissue 20 sq cm/< Debridement Note Debridement Note Wound debrided: #3 - Left posterolateral leg ulcer cluster Laterality: Left Wound Grade/Stage: Grade III Type of Debridement: Excisional debridement Anesthesia Used: 5% Lidocaine Gel Depth: Down to and including healthy tissue and in the subcutaneous layer Percentage of wound debrided: 100 Instrument Used: 3mm curette Tissue Removed: subcutaneous tissue, senescent cells Severity: Fat Layer Exposed Amount of bleeding with debridement: Mild Bleeding Controlled with: Pressure and Compression and gauze Patient tolerated procedure: Patient tolerated procedure well Post-Debridement Measurements and Additional Note: Post-Debridement Measurements/Treatment - Nurse 1 - General Ulcer Assessment Start: 05/30/24 10:16 Freq: Status: Active Protocol: [place] Activity Type Activity Date Activity User E-sign Co-sign Detail Recorded Client Recorded Date Recorded By Document 05/30/24 10:16 KW [id number] 05/30/24 10:25 KW Document 06/06/24 10:22 KW [id number] 06/06/24 10:24 KW 05/30/24 06/06/24 10:16 10:22 WC - Today's Visit Information Type of service Nurse-only Visit Arrival Mode Ambulatory Patient Identification Verified (Name & Yes ) Height and Weight Body Mass Index (BMI) 27.6 27.6 BMI Classification Overweight Overweight Vital Signs Temperature (97.8 F-99.1 F) 96.9 F L 97.9 F Temperature Source Temporal Temporal Pulse Rate (60-100) 88 82 Pulse Location Monitor Respiratory Rate (12-18) 18 16 Respiratory rate source Observation Observation Oxygen Delivery Method Room Air Room Air Blood Pressure (90/60-120/80) 163/88 H 185/91 H Blood Pressure Mean (mm Hg) 113 122 Source Monitor Monitor Position Sitting Semi-Fowlers Blood Pressure Location Left Arm Left Arm History Since Last Visit- (Skip if this is Patient's initial visit) Have you changed medications since your No No last visit? Any new allergies or adverse reactions No No Had a fall/change in ADL's that may No No increase risk of falls Signs or symptoms of abuse and/or No No neglect since last visit Have you been in the hospital since your No No last visit? Has dressing in place as prescribed Yes Yes Has compression in place as prescribed Yes Yes Has offloadiing in place as prescribed N/A N/A Experienced any changes in pain level or No No management Left Footwear Regular Shoe Right Footwear Regular Shoe Pain Scale: 0-10 Numeric Is Patient Pain Free? Yes Yes [facility] Nurse 1 - General Ulcer Measurement Start: 05/30/24 10:16 Freq: Status: Active Protocol: Activity Type Activity Date Activity User E-sign Co-sign Detail Recorded Client Recorded Date Recorded By Document 06/06/24 10:22 KW [id number] 06/06/24 10:24 KW 06/06/24 10:22 Wound Center Nurse 1 #3 L Calf cluster -Current Size (cm) - Length 0.8 -Current Size (cm) - Width 0.6 -Current Size (cm) - Depth 0.1 -Total Square Cm 0.48 -Date of Last Picture (Recall this 06/06/24 field) -Epithelialization Large 67-100% -Exudate Amt Small -Exudate Type Serosanguineous -Wound Margin Distinct, Outline Attached -Granulation Amt Large (67-100%) -Granulation Quality Red -Texture (Karen-wound Skin Appearance) Assessed -Moisture (Karen-wound Skin Appearance) Assessed -Color (Karen-wound Skin Appearance) Assessed -Temperature (Karen-wound Skin No Abnormality Appearance) (Pt Warm) -Tenderness on Palpation (Karen-wound No Skin Appearance) -Ulcer Cleansing Soap and Water -Anesthetic Used 5% Lidocaine Gel Left Calf (cm) 30.9 Left Ankle (cm) 20.5 WC - Nurse 2 - General Ulcer CM Notes Start: 05/30/24 10:16 Freq: Status: Active Protocol: Activity Type Activity Date Activity User E-sign Co-sign Detail Recorded Client Recorded Date Recorded By Document 06/06/24 11:12 [id number] 06/06/24 11:13 06/06/24 11:12 Wound Center Nurse 2 #3 L Calf cluster -Time 11:12 -Correct Patient Yes -Correct Side, Site, Position Yes -Correct Procedure Yes -Procedure Performed Yes -Type of Procedure Debridement -Clinical Debridement Subcutaneous -Tissue Removed Subcutaneous -Post Debridement (cm) - Length 1.4 -Post Debridement (cm) - Width 1.2 -Post Debridement (cm) - Depth 0.1 -Total Square (Post) (cm) 1.68 -Area of Debridement (cm) - Length 1.4 -Area of Debridement (cm) - Width 1.2 -Total Square (Area) (cm) 1.68 -Tunneling No -Undermining/Tunneling No -Circular Undermining No -Wound/Ulcer Outcome Not Healed -Ulcer Cleansing Rinsed/ Irrigated with Saline -Foul Odor after Cleansing No -Bioengineered Tissue No -Bleeding Controlled with Pressure -Treatment Response Procedure Tolerated Well -Debridement - Subq, 1st 20sq cm Yes Pain Scale: 0-10 Numeric Is Patient Pain Free? Yes WC - Nurse 3 - General Ulcer D/C NN Start: 05/30/24 10:16 Freq: Status: Active Protocol: Activity Type Activity Date Activity User E-sign Co-sign Detail Recorded Client Recorded Date Recorded By Document 05/30/24 10:16 KW [id number] 05/30/24 10:25 KW Document 06/06/24 11:22 ML [id number] 06/06/24 11:23 ML 05/30/24 06/06/24 10:16 11:22 Vital Signs Temperature (97.8 F-99.1 F) 96.9 F L Temperature Source Temporal Pulse Rate (60-100) 88 Pulse Location Monitor Respiratory Rate (12-18) 18 Respiratory rate source Observation Oxygen Delivery Method Room Air Blood Pressure (90/60-120/80) 163/88 H Blood Pressure Mean (mm Hg) 113 Source Monitor Position Sitting Blood Pressure Location Left Arm Pain Scale: 0-10 Numeric Is Patient Pain Free? Yes Yes Wound Care Center Nurse 3 #3 L Calf cluster -Ulcer Cleansing Soap and Water Rinsed/ Irrigated with Saline -Primary Dressing Applied Promogran Alix Matter -Other Dressing moistened alix -Primary Dressing Covered/Secured with Dry Gauze & Dry Gauze Roll Gauze, Secured with Tape -Promogran Alix Matter 0 Right -Tubular Bandage Single Layer -Size of Tubigrip Used Size D -Size D ($) 1 Left -Multi-Layered Wrap Application Multi-Layer Multi-Layer Comp - Left ($) Comp - Left ($) WC - Visit Discharge Discharge Condition Stable Ambulatory Status Ambulatory Transportation Private Auto Medication Reconcilliation completed & No provided to patient/care provider Clinical Summary of Care Provided 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: CODE(S): L97.902 - Non-pressure chronic ulcer of unspecified part of unspecified lower leg with fat layer exposed QUALIFIERS: Laterality: left Qualified Code(s): L97.922 - Non-pressure chronic ulcer of unspecified part of left lower leg with fat layer exposed (2) Contusion of left lower leg, sequela: CODE(S): S80.12XS - Contusion of left lower leg, sequela (3) Hematoma: CODE(S): T14.8XXA - Other injury of unspecified body region, initial encounter (4) Chronic anticoagulation: CODE(S): Z79.01 - [facility] (current) use of 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s PLAN: Plan She has had 10 applications of Theraskin, the last product was placed 11/16/23. Wound care - Continue Alix cover with ABD. 3M 2 layer wrap for compression on the left leg. She wears a double tubigrip on the right lower extremity. She will leave the 3M 2 layer wrap on the left in place. It is not to get wet. Encouraged protein supplementation to help with wound healing. She has been using Daniel. Encouraged her to consider being referred for an evaluation for a skin graft. She states that she will think about it. She will follow up in one week with me. Instructed her to come in sooner if the wrap starts to slide down.
--- NOTE | 2024-06-10 08:56 | WC ---
PHOTO 06/06/24 LEFT CALF
[2024-06-13 14:13] VITALS: BP 150/79; PULSE 93; RESP 18; TEMP 36.5; BMI 27.6
--- NOTE | 2024-06-13 15:48 | PN.PCM_ITS ---
History of Present Illness Date of Service: 06/13/24 Chief Complaint: Left lateral leg ulcer that was initially caused by trauma from bumping leg on edge of car. History of Wound: Patient is 83 year female who presents for further evaluation of an ulcer on her left posterolateral leg. She initially bumped her leg on her car frame when removing something from her car on 05/22/24 and needed sutures to her left anterior leg. She then developed increased pain, swelling and a hematoma to her left leg and was seen in the ED very early on 05/27/23. She is on chronic anticoagulation for Afib, her INR was 5.3 at that time. She was discharged home with follow up with her PCP later that day. She returned to the ED via squad later that day after she experienced a large amount of bleeding. The hematoma was evacuated in the ED under sedation. She was admitted to the hospital and she required transfusion of 1 unit PRBC when her hemoglobin dropped from 11 to 6.9. She was transferred to [facility] for a little while. 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 She states she is doing well at home. Her daughter is helping her with her dressing changes. Wound care - Alix. 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 Wound cultures obtained 07/27/23 which were positive for Pseudomonas aeruginosa, MRSA, Corynebacterium striatum, and Anaerobic cocci. She was placed on Flagyl and finished them. She was placed on Levaquin and is tolerating them thus far. She was placed on Linezolid and stated she had some visual problems and stopped the antibiotic. Stopped the Clindamycin due severe heart burn. Re-cultured the ulcer on 08/25/23 and it was positive for Acinetobacter baumannii. Started her on Augmentin, which she has tolerated in the past. Arterial studies obtained 03/31/24 - Right GEOVANNA at digital level 0.92 (non compressible at posterior tib and dorsalis pedis). Left GEOVANNA 1.10. Triphasic Doppler waveforms are noted at ankle level bilaterally. Pulse-volume recordings appear satisfactory at all levels bilaterally. The resting right ankle-brachial index could not be determined due to the non-compressibility of the vasculature at ankle level on the right. The resting left ankle-brachial index is normal. Digital-brachial indices are normal bilaterally. There is evidence of arterial calcification at ankle level on the right. There is no evidence of significant arterial occlusive disease in the lower extremities bilaterally. Venous doppler obtained 03/31/24 - Deep veins of the lower extremities are bilaterally patent and compressible segmentally. There is no evidence of deep vein thrombosis on either side. The right sapheno-femoral junction is incompetent . The right great saphenous vein appears segmentally incompetent. The left great saphenous vein appears incompetent below the knee. The accessory saphenous vein in the right mid-thigh and mid-calf are incompetent. Chronic venous changes are noted in an accessory saphenous vein in the right calf. Today she denies fever, chills, nausea or vomiting. Her appetite is good. Patient was interested in advanced skin substitute grafts to help the ulcer to heal. She has had 10 applications of Theraskin. Progress of Wound: Left lateral leg ulcer is smaller in size. The wound bed is nice beefy pink color. She now has a skin island present. She is tolerating the 3 M 2 layer wraps on her left leg and she has no edema. She is wearing a double tubigrip for her edema on her right lower extremity. Stressed importance keeping legs elevated while sitting to help with swelling. Objective Data Objective Data Vital Signs: Vital Signs Temp Pulse Resp BP O2 Del Method 97.7 F L 93 18 150/79 H Room Air 06/13/24 14:13 06/13/24 14:13 06/13/24 14:13 06/13/24 14:13 06/13/24 14:13 Oxygen Delivery Method Room Air Weight: 170 lb 12.573 oz Body Mass Index (BMI) 27.6 Charges/Coding Procedures Integumentary 111xxx-113xx: [id number] Humera subq tissue 20 sq cm/< Debridement Note Debridement Note Wound debrided: #3 - Left posterolateral leg ulcer cluster Laterality: Left Wound Grade/Stage: Grade III Type of Debridement: Excisional debridement Anesthesia Used: 5% Lidocaine Gel Depth: Down to and including healthy tissue and in the subcutaneous layer Percentage of wound debrided: 100 Instrument Used: 3mm curette Tissue Removed: subcutaneous tissue, senescent cells Severity: Fat Layer Exposed Amount of bleeding with debridement: Mild Bleeding Controlled with: Pressure and Compression and gauze Patient tolerated procedure: Patient tolerated procedure well Post-Debridement Measurements and Additional Note: Post-Debridement Measurements/Treatment WC - Nurse 1 - General Ulcer Assessment Start: 05/30/24 10:16 Freq: Status: Active Protocol: MIKE.MAGEDT Activity Type Activity Date Activity User E-sign Co-sign Detail Recorded Client Recorded Date Recorded By Document 05/30/24 10:16 KW [id number] 05/30/24 10:25 KW Document 06/06/24 10:22 KW [id number] 06/06/24 10:24 KW Document 06/13/24 14:13 BM [id number] 06/13/24 14:19 BMF 05/30/24 06/06/24 06/13/24 10:16 10:22 14:13 WC - Today's Visit Information Type of service Nurse-only Follow-up Visit Visit (Physician/BUSINESS TECHNOLOGY ARCHITECT ) Arrival Mode Ambulatory Ambulatory Transfer Assistance None Patient Identification Verified (Name & Yes Yes ) Patient Requires Transmission-Based No Precautions Height and Weight Body Mass Index (BMI) 27.6 27.6 27.6 BMI Classification Overweight Overweight Overweight Vital Signs Temperature (97.8 F-99.1 F) 96.9 F L 97.9 F 97.7 F L Temperature Source Temporal Temporal Temporal Pulse Rate (60-100) 88 82 93 Pulse Location Monitor Monitor Respiratory Rate (12-18) 18 16 18 Respiratory rate source Observation Observation Observation Oxygen Delivery Method Room Air Room Air Room Air Blood Pressure (90/60-120/80) 163/88 H 185/91 H 150/79 H Blood Pressure Mean (mm Hg) 113 122 102 Source Monitor Monitor Monitor Position Sitting Semi-Fowlers Sitting Blood Pressure Location Left Arm Left Arm History Since Last Visit- (Skip if this is Patient's initial visit) Have you changed medications since your No No No last visit? Any new allergies or adverse reactions No No No Had a fall/change in ADL's that may No No No increase risk of falls Signs or symptoms of abuse and/or No No No neglect since last visit Have you been in the hospital since your No No No last visit? Has dressing in place as prescribed Yes Yes Yes Has compression in place as prescribed Yes Yes Yes Has offloadiing in place as prescribed N/A N/A N/A Experienced any changes in pain level or No No No management Left Footwear Regular Shoe Regular Shoe Right Footwear Regular Shoe Regular Shoe Pain Scale: 0-10 Numeric Is Patient Pain Free? Yes Yes Yes WC - Nurse 1 - General Ulcer Measurement Start: 05/30/24 10:16 Freq: Status: Active Protocol: Activity Type Activity Date Activity User E-sign Co-sign Detail Recorded Client Recorded Date Recorded By Document 06/06/24 10:22 KW [id number] 06/06/24 10:24 KW Document 06/13/24 14:13 [facility] [id number] 06/13/24 14:19 BM 06/06/24 06/13/24 10:22 14:13 Wound Center Nurse 1 #3 L Calf cluster -Combined with other wound No -Current Size (cm) - Length 0.8 0.7 -Current Size (cm) - Width 0.6 0.8 -Current Size (cm) - Depth 0.1 0.1 -Total Square Cm 0.48 0.56 -Date of Last Picture (Recall this 06/06/24 06/13/24 field) -Photo Taken Yes -Epithelialization Large 67-100% -Exudate Amt Small Medium -Exudate Type Serosanguineous Serosanguineous -Wound Margin Distinct, Distinct, Outline Outline Attached Attached -Granulation Amt Large (67-100%) Small (1-33%) -Granulation Quality Red Ketchum -Necrosis Amt Small (1-33%) -Necrotic Tissue Type Adherent Slough -Structure Exposed N/A -Texture (Karen-wound Skin Appearance) Assessed Assessed -Moisture (Karen-wound Skin Appearance) Assessed Assessed -Color (Karen-wound Skin Appearance) Assessed Assessed -Temperature (Karen-wound Skin No Abnormality No Abnormality Appearance) (Pt Warm) (Pt Warm) -Tenderness on Palpation (Karen-wound No No Skin Appearance) -Ulcer Cleansing Soap and Water Soap and Water -Foul Odor after Cleansing No -Anesthetic Used 5% Lidocaine 5% Lidocaine Gel Gel Left Calf (cm) 30.9 36.2 Left Ankle (cm) 20.5 20.4 WC - Nurse 2 - General Ulcer CM Notes Start: 05/30/24 10:16 Freq: Status: Active Protocol: Activity Type Activity Date Activity User E-sign Co-sign Detail Recorded Client Recorded Date Recorded By Document 06/06/24 11:12 [id number] 06/06/24 11:13 GM Document 06/13/24 14:44 DS [id number] 06/13/24 14:46 DS 06/06/24 06/13/24 11:12 14:44 Wound Center Nurse 2 #3 L Calf cluster -Time 11:12 14:40 -Correct Patient Yes Yes -Correct Side, Site, Position Yes Yes -Correct Procedure Yes Yes -Procedure Performed Yes Yes -Type of Procedure Debridement Debridement -Clinical Debridement Subcutaneous Subcutaneous -Tissue Removed Subcutaneous Subcutaneous -Post Debridement (cm) - Length 1.4 1.2 -Post Debridement (cm) - Width 1.2 1.0 -Post Debridement (cm) - Depth 0.1 0.1 -Total Square (Post) (cm) 1.68 1.20 -Area of Debridement (cm) - Length 1.4 1.2 -Area of Debridement (cm) - Width 1.2 1.0 -Total Square (Area) (cm) 1.68 1.20 -Tunneling No No -Undermining/Tunneling No No -Circular Undermining No No -Wound/Ulcer Outcome Not Healed Not Healed -Ulcer Cleansing Rinsed/ Irrigated with Saline -Foul Odor after Cleansing No No -Bioengineered Tissue No No -Bleeding Controlled with Pressure -Treatment Response Procedure Tolerated Well -Debridement - Subq, 1st 20sq cm Yes Yes Pain Scale: 0-10 Numeric Is Patient Pain Free? Yes Yes WC - Nurse 3 - General Ulcer D/C NN Start: 05/30/24 10:16 Freq: Status: Active Protocol: Activity Type Activity Date Activity User E-sign Co-sign Detail Recorded Client Recorded Date Recorded By Document 05/30/24 10:16 KW [id number] 05/30/24 10:25 KW Document 06/06/24 11:22 ML [id number] 06/06/24 11:23 ML Document 06/13/24 15:04 DL [id number] 06/13/24 15:06 DL 05/30/24 06/06/24 06/13/24 10:16 11:22 15:04 Vital Signs Temperature (97.8 F-99.1 F) 96.9 F L Temperature Source Temporal Pulse Rate (60-100) 88 Pulse Location Monitor Respiratory Rate (12-18) 18 Respiratory rate source Observation Oxygen Delivery Method Room Air Blood Pressure (90/60-120/80) 163/88 H Blood Pressure Mean (mm Hg) 113 Source Monitor Position Sitting Blood Pressure Location Left Arm Pain Scale: 0-10 Numeric Is Patient Pain Free? Yes Yes Yes Wound Care Center Nurse 3 #3 L Calf cluster -Ulcer Cleansing Soap and Water Rinsed/ Rinsed/ Irrigated with Irrigated with Saline Saline -Foul Odor after Cleansing No -Primary Dressing Applied Promogran Alix Matter -Primary Dressing Applied Promogran Alix Matter -Other Dressing moistened alix -Primary Dressing Covered/Secured with Dry Gauze & Dry Gauze Dry Gauze & Roll Gauze, Roll Gauze, Secured with Secured with Tape Tape -Promogran Alix Matter 0 1 Right -Tubular Bandage Single Layer -Size of Tubigrip Used Size D -Size D ($) 1 Left -Multi-Layered Wrap Application Multi-Layer Multi-Layer Multi-Layer Comp - Left ($) Comp - Left ($) Comp - Left ($) -Other tubigrip D RLE WC - Visit Discharge Discharge Condition Stable Stable Ambulatory Status Ambulatory Ambulatory Transportation Private Auto Private Auto Medication Reconcilliation completed & No provided to patient/care provider Clinical Summary of Care Provided 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: CODE(S): L97.902 - Non-pressure chronic ulcer of unspecified part of unspecified lower leg with fat layer exposed QUALIFIERS: Laterality: left Qualified Code(s): L97.922 - Non- pressure chronic ulcer of unspecified part of left lower leg with fat layer exposed (2) Contusion of left lower leg, sequela: CODE(S): S80.12XS - Contusion of left lower leg, sequela (3) Hematoma: CODE(S): T14.8XXA - Other injury of unspecified body region, initial encounter (4) Chronic anticoagulation: CODE(S): Z79.01 - custodial (current) use of 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s PLAN: Plan She has had 10 applications of Theraskin, the last product was placed 11/16/23. Wound care - Continue Alix cover with ABD. 3M 2 layer wrap for compression on the left leg. She wears a double tubigrip on the right lower extremity. She will leave the 3M 2 layer wrap on the left in place. It is not to get wet. Will order her Circaids for compression after she is done with the 3M 2 Layer wr aps. Encouraged protein supplementation to help with wound healing. She has been using Daniel. Encouraged her to consider being referred for an evaluation for a skin graft. She states that she will think about it. She will follow up in one week with me. Instructed her to come in sooner if the wrap starts to slide down.
--- NOTE | 2024-06-14 09:06 | WC ---
PHOTO 06/13/24 LEFT CALF
[2024-06-20 09:25] VITALS: BP 150/89; PULSE 89; RESP 16; TEMP 36.9; BMI 27.6
--- NOTE | 2024-06-20 12:51 | PCM.WC.PN ---
History of Present Illness Date of Service: 06/20/24 Chief Complaint: Left lateral leg ulcer that was initially caused by trauma from bumping leg on edge of car. History of Wound: Patient is 83 year female who presents for further evaluation of an ulcer on her left posterolateral leg. She initially bumped her leg on her car frame when removing something from her car on 05/22/24 and needed sutures to her left anterior leg. She then developed increased pain, swelling and a hematoma to her left leg and was seen in the ED very early on 05/27/23. She is on chronic anticoagulation for Afib, her INR was 5.3 at that time. She was discharged home with follow up with her PCP later that day. She returned to the ED via squad later that day after she experienced a large amount of bleeding. The hematoma was evacuated in the ED under sedation. She was admitted to the hospital and she required transfusion of 1 unit PRBC when her hemoglobin dropped from 11 to 6.9. [facility] transferred [facility]. She comes in today for further evaluation of her left posterolateral leg ulcer from a hematoma. She states she is doing well at home. Her daughter is helping her with her dressing changes. Wound care - Alix. 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 Wound cultures obtained 07/27/23 which were positive for Pseudomonas aeruginosa, MRSA, Corynebacterium striatum, and Anaerobic cocci. She was placed on Flagyl and finished them. She was placed on Levaquin and is tolerating them thus far. She was placed on Linezolid and stated she had some visual problems and stopped the antibiotic. Stopped the Clindamycin due severe heart burn. Re-cultured the ulcer on 08/25/23 and it was positive for Acinetobacter baumannii. Started her on Augmentin, which she has tolerated in the past. Arterial studies obtained 03/31/24 - Right GEOVANNA at digital level 0.92 (non compressible at posterior tib and dorsalis pedis). Left GEOVANNA 1.10. Triphasic Doppler waveforms are noted at ankle level bilaterally. Pulse-volume recordings appear satisfactory at all levels bilaterally. The resting right ankle-brachial index could not be determined due to the non-compressibility of the vasculature at ankle level on the right. The resting left ankle-brachial index is normal. Digital-brachial indices are normal bilaterally. There is evidence of arterial calcification at ankle level on the right. There is no evidence of significant arterial occlusive disease in the lower extremities bilaterally. Venous doppler obtained 03/31/24 - Deep veins of the lower extremities are bilaterally patent and compressible segmentally. There is no evidence of deep vein thrombosis on either side. The right sapheno-femoral junction is incompetent . The right great saphenous vein appears segmentally incompetent. The left great saphenous vein appears incompetent below the knee. The accessory saphenous vein in the right mid-thigh and mid-calf are incompetent. Chronic venous changes are noted in an accessory saphenous vein in the right calf. Today she denies fever, chills, nausea or vomiting. Her appetite is good. Patient was interested in advanced skin substitute grafts to help the ulcer to heal. She has had 10 applications of Theraskin. Progress of Wound: Left lateral leg ulcer is smaller in size. The wound bed is nice beefy pink color. She is tolerating the 3 M 2 layer wraps on her left leg and she has no edema. She is wearing a double tubigrip for her edema on her right lower extremity. Stressed importance keeping legs elevated while sitting to help with swelling. Objective Data Objective Data Vital Signs: Vital Signs Temp Pulse Resp BP O2 Del Method 98.4 F 89 16 150/89 H Room Air 06/20/24 09:25 06/20/24 09:25 06/20/24 09:25 06/20/24 09:25 06/20/24 09:25 Oxygen Delivery Method Room Air Weight: 170 lb 12.573 oz Body Mass Index (BMI) 27.6 Charges/Coding Procedures Integumentary 111xxx-113xx: [id number] Humera subq tissue 20 sq cm/< Debridement Note Debridement Note Wound debrided: #3 - Left posterolateral leg ulcer cluster Laterality: Left Wound Grade/Stage: Grade III Type of Debridement: Excisional debridement Anesthesia Used: 5% Lidocaine Gel Depth: Down to and including healthy tissue and in the subcutaneous layer Percentage of wound debrided: 100 Instrument Used: 3mm curette Tissue Removed: subcutaneous tissue, senescent cells Severity: Fat Layer Exposed Amount of bleeding with debridement: Mild Bleeding Controlled with: Pressure and Compression and gauze Patient tolerated procedure: Patient tolerated procedure well Post-Debridement Measurements and Additional Note: Post-Debridement Measurements/Treatment WC - Nurse 1 - General Ulcer Assessment Start: 05/30/24 10:16 Freq: Status: Active Protocol: [place] Activity Type Activity Date Activity User E-sign Co-sign Detail Recorded Client Recorded Date Recorded By Document 05/30/24 10:16 KW [id number] 05/30/24 10:25 KW Document 06/06/24 10:22 KW [id number] 06/06/24 10:24 KW Document 06/13/24 14:13 BMF [id number] 06/13/24 14:19 BMF Document 06/20/24 09:25 KW [id number] 06/20/24 09:35 KW 05/30/24 06/06/24 06/13/24 10:16 10:22 14:13 WC - Today's Visit Information Type of service Nurse-only Follow-up Visit 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 ) Arrival Mode Ambulatory Ambulatory Transfer Assistance None Patient Identification Verified (Name & Yes Yes ) Patient Requires Transmission-Based No Precautions Height and Weight Body Mass Index (BMI) 27.6 27.6 27.6 BMI Classification Overweight Overweight Overweight Vital Signs Temperature (97.8 F-99.1 F) 96.9 F L 97.9 F 97.7 F L Temperature Source Temporal Temporal Temporal Pulse Rate (60-100) 88 82 93 Pulse Location Monitor Monitor Respiratory Rate (12-18) 18 16 18 Respiratory rate source Observation Observation Observation Oxygen Delivery Method Room Air Room Air Room Air Blood Pressure (90/60-120/80) 163/88 H 185/91 H 150/79 H Blood Pressure Mean (mm Hg) 113 122 102 Source Monitor Monitor Monitor Position Sitting Semi-Fowlers Sitting Blood Pressure Location Left Arm Left Arm History Since Last Visit- (Skip if this is Patient's initial visit) Have you changed medications since your No No No last visit? Any new allergies or adverse reactions No No No Had a fall/change in ADL's that may No No No increase risk of falls Signs or symptoms of abuse and/or No No No neglect since last visit Have you been in the hospital since your No No No last visit? Has dressing in place as prescribed Yes Yes Yes Has compression in place as prescribed Yes Yes Yes Has offloadiing in place as prescribed N/A N/A N/A Experienced any changes in pain level or No No No management Left Footwear Regular Shoe Regular Shoe Right Footwear Regular Shoe Regular Shoe Pain Scale: 0-10 Numeric Is Patient Pain Free? 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 ) Arrival Mode Ambulatory Transfer Assistance Patient Identification Verified (Name & Yes ) Patient Requires Transmission-Based Precautions Height and Weight Body Mass Index (BMI) 27.6 BMI Classification Overweight Vital Signs Temperature (97.8 F-99.1 F) 98.4 F Temperature Source Temporal Pulse Rate (60-100) 89 Pulse Location Monitor Respiratory Rate (12-18) 16 Respiratory rate source Observation Oxygen Delivery Method Room Air Blood Pressure (90/60-120/80) 150/89 H Blood Pressure Mean (mm Hg) 109 Source Monitor Position Semi-Fowlers Blood Pressure Location Left Arm History Since Last Visit- (Skip if this is Patient's initial visit) Have you changed medications since your No last visit? Any new allergies or adverse reactions No Had a fall/change in ADL's that may No increase risk of falls Signs or symptoms of abuse and/or No neglect since last visit Have you been in the hospital since your No last visit? Has dressing in place as prescribed Yes Has compression in place as prescribed Yes Has offloadiing in place as prescribed N/A Experienced any changes in pain level or No management Left Footwear Regular Shoe Right Footwear Regular Shoe Pain Scale: 0-10 Numeric Is Patient Pain Free? Yes - Nurse 1 - General Ulcer Measurement Start: 05/30/24 10:16 Freq: Status: Active Protocol: Activity Type Activity Date Activity User E-sign Co-sign Detail Recorded Client Recorded Date Recorded By Document 06/06/24 10:22 KW [id number] 06/06/24 10:24 KW Document 06/13/24 14:13 [facility] [id number] 06/13/24 14:19 [facility] Document 06/20/24 09:25 KW [id number] 06/20/24 09:35 KW 06/06/24 06/13/24 06/20/24 10:22 14:13 09:25 Wound Center Nurse 1 #3 L Calf cluster -Combined with other wound No -Current Size (cm) - Length 0.8 0.7 1 -Current Size (cm) - Width 0.6 0.8 0.5 -Current Size (cm) - Depth 0.1 0.1 0.1 -Total Square Cm 0.48 0.56 0.5 -Date of Last Picture (Recall this 06/06/24 06/13/24 06/20/24 field) -Photo Taken Yes -Epithelialization Large 67-100% Medium 34-66% -Exudate Amt Small Medium Small -Exudate Type Serosanguineous Serosanguineous Serosanguineous -Wound Margin Distinct, Distinct, Distinct, Outline Outline Outline Attached Attached Attached -Granulation Amt Large (67-100%) Small (1-33%) Large (67-100%) -Granulation Quality Red [place] -Necrosis Amt Small (1-33%) -Necrotic Tissue Type Adherent Slough -Structure Exposed N/A -Texture (Karen-wound Skin Appearance) Assessed Assessed Assessed -Moisture (Karen-wound Skin Appearance) Assessed Assessed Assessed -Color (Karen-wound Skin Appearance) Assessed Assessed Assessed -Temperature (Karen-wound Skin No Abnormality No Abnormality No Abnormality Appearance) (Pt Warm) (Pt Warm) (Pt Warm) -Tenderness on Palpation (Karen-wound No No No Skin Appearance) -Ulcer Cleansing Soap and Water Soap and Water Soap and Water -Foul Odor after Cleansing No No -Anesthetic Used 5% Lidocaine 5% Lidocaine 5% Lidocaine Gel Gel Gel Left Calf (cm) 30.9 36.2 34.5 Left Ankle (cm) 20.5 20.4 19.6 WC - Nurse 2 - General Ulcer CM Notes Start: 05/30/24 10:16 Freq: Status: Active Protocol: Activity Type Activity Date Activity User E-sign Co-sign Detail Recorded Client Recorded Date Recorded By Document 06/06/24 11:12 [id number] 06/06/24 11:13 GM Document 06/13/24 14:44 DS [id number] 06/13/24 14:46 DS Document 06/20/24 09:48 JF [id number] 06/20/24 09:53 06/06/24 06/13/24 06/20/24 11:12 14:44 09:48 Wound Center Nurse 2 #3 L Calf cluster -Time 11:12 14:40 09:49 -Correct Patient Yes Yes Yes -Correct Side, Site, Position Yes Yes Yes -Correct Procedure Yes Yes Yes -Procedure Performed Yes Yes Yes -Type of Procedure Debridement Debridement Debridement -Clinical Debridement Subcutaneous Subcutaneous Subcutaneous -Tissue Removed Subcutaneous Subcutaneous Subcutaneous -Post Debridement (cm) - Length 1.4 1.2 0.6 -Post Debridement (cm) - Width 1.2 1.0 0.9 -Post Debridement (cm) - Depth 0.1 0.1 0.1 -Total Square (Post) (cm) 1.68 1.20 0.54 -Area of Debridement (cm) - Length 1.4 1.2 0.6 -Area of Debridement (cm) - Width 1.2 1.0 0.9 -Total Square (Area) (cm) 1.68 1.20 0.54 -Tunneling No No No -Undermining/Tunneling No No No -Circular Undermining No No No -Wound/Ulcer Outcome Not Healed Not Healed Not Healed -Ulcer Cleansing Rinsed/ Rinsed/ Irrigated with Irrigated with Saline Saline -Foul Odor after Cleansing No No No -Bioengineered Tissue No No No -Bleeding Controlled with Pressure Pressure -Treatment Response Procedure Procedure Tolerated Well Tolerated Well -Offloading No -Debridement - Subq, 1st 20sq cm Yes Yes Yes Pain Scale: 0-10 Numeric Is Patient Pain Free? Yes Yes Yes WC - Nurse 3 - General Ulcer D/C NN Start: 05/30/24 10:16 Freq: Status: Active Protocol: Activity Type Activity Date Activity User E-sign Co-sign Detail Recorded Client Recorded Date Recorded By Document 05/30/24 10:16 KW [id number] 05/30/24 10:25 KW Document 06/06/24 11:22 ML [id number] 06/06/24 11:23 ML Document 06/13/24 15:04 DL [id number] 06/13/24 15:06 DL Document 06/20/24 09:57 KW [id number] 06/20/24 10:00 KW 05/30/24 06/06/24 06/13/24 10:16 11:22 15:04 Vital Signs Temperature (97.8 F-99.1 F) 96.9 F L Temperature Source Temporal Pulse Rate (60-100) 88 Pulse Location Monitor Respiratory Rate (12-18) 18 Respiratory rate source Observation Oxygen Delivery Method Room Air Blood Pressure (90/60-120/80) 163/88 H Blood Pressure Mean (mm Hg) 113 Source Monitor Position Sitting Blood Pressure Location Left Arm Pain Scale: 0-10 Numeric Is Patient Pain Free? Yes Yes Yes Wound Care Center Nurse 3 #3 L Calf cluster -Ulcer Cleansing Soap and Water Rinsed/ Rinsed/ Irrigated with Irrigated with Saline Saline -Foul Odor after Cleansing No -Primary Dressing Applied Promogran Alix Matter -Primary Dressing Applied Promogran Alix Matter -Other Dressing moistened alix -Primary Dressing Covered/Secured with Dry Gauze & Dry Gauze Dry Gauze & Roll Gauze, Roll Gauze, Secured with Secured with Tape Tape -Promogran Alix Matter 0 1 Right -Tubular Bandage Single Layer -Size of Tubigrip Used Size D -Size D ($) 1 -Other Left -Multi-Layered Wrap Application Multi-Layer Multi-Layer Multi-Layer Comp - Left ($) Comp - Left ($) Comp - Left ($) -Other tubigrip D RLE WC - Visit Discharge Discharge Condition Stable Stable Ambulatory Status Ambulatory Ambulatory Transportation Private Auto Private Auto Medication Reconcilliation completed & No provided to patient/care provider Clinical Summary of Care Provided Yes 06/20/24 09:57 Vital Signs Temperature (97.8 F-99.1 F) Temperature Source Pulse Rate (60-100) Pulse Location Respiratory Rate (12-18) Respiratory rate source Oxygen Delivery Method Blood Pressure (90/60-120/80) Blood Pressure Mean (mm Hg) Source Position Blood Pressure Location Pain Scale: 0-10 Numeric Is Patient Pain Free? Yes Wound Care Center Nurse 3 #3 L Calf cluster -Ulcer Cleansing -Foul Odor after Cleansing -Primary Dressing Applied -Primary Dressing Applied -Other Dressing pt own alix -Primary Dressing Covered/Secured with Dry Gauze & Roll Gauze, Secured with Tape -Promogran Alix Matter Right -Tubular Bandage -Size of Tubigrip Used -Size D ($) -Other pt own tubigrip Left -Multi-Layered Wrap Application Multi-Layer Comp - Left ($) -Other WC - Visit Discharge Discharge Condition Stable Ambulatory Status Ambulatory Transportation Private Auto Medication Reconcilliation completed & No provided to patient/care provider Clinical Summary of Care Provided 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: CODE(S): L97.902 - Non-pressure chronic ulcer of unspecified part of unspecified lower leg with fat layer exposed QUALIFIERS: Laterality: left Qualified Code(s): L97.922 - Non-pressure chronic ulcer of unspecified part of left lower leg with fat layer exposed (2) Contusion of left lower leg, sequela: CODE(S): S80.12XS - Contusion of left lower leg, sequela (3) Hematoma: CODE(S): T14.8XXA - Other injury of unspecified body region, initial encounter (4) Chronic anticoagulation: CODE(S): Z79.01 - FDC (current) use of 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s PLAN: Plan She has had 10 applications of Theraskin, the last product was placed 11/16/23. Wound care - Continue Moistened Alix cover with ABD. 3M 2 layer wrap for compression on the left leg. She wears a double tubigrip on the right lower extremity. She will leave the 3M 2 layer wrap on the left in place. It is not to get wet. Ordered her Circaids for compression after she is done with the 3M 2 Layer wraps. She has not received them. Encouraged protein supplementation to help with wound healing. She has been using Daniel. Encouraged her to consider being referred for an evaluation for a skin graft. She states that she will think about it. She will follow up in one week with me. Instructed her to come in sooner if the wrap starts to slide down.
== END 2024-06-24 23:59 | disposition home or self-care (01) ==
LOC: WC 09:15
PROVIDERS: PCP Family Medicine Geriatric Medicine; Referring Provider Family Medicine Geriatric Medicine; Visit Provider Nurse Practitioner Family
DX: L97.922 Non-pressure chronic ulcer of unspecified part of left lower leg with fat layer exposed (principal); M06.9 Rheumatoid arthritis, unspecified; R60.0 Localized edema; S80.12XS Contusion of left lower leg, sequela; Z79.01 Long term (current) use of 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s; T14.8XXA Other injury of unspecified body region, initial encounter; Z95.0 Presence of cardiac pacemaker; I10 Essential (primary) hypertension; E78.5 Hyperlipidemia, unspecified; Z86.718 Personal history of other venous thrombosis and embolism; Z86.14 Personal history of Methicillin resistant Staphylococcus aureus infection
CPT/HCPCS: 11042; 29581

== ENCOUNTER 2024-07-04 09:00 | Outpatient (RCR) | payer MEDICARE, OTHER, SELFPAY ==
[2024-06-25 00:49] VITALS: BP 150/89; PULSE 89; RESP 16; TEMP 36.9; BMI 27.6
[2024-06-27 09:36] VITALS: BP 155/93; PULSE 91; RESP 16; TEMP 36.1; BMI 27.6
--- NOTE | 2024-06-27 11:37 | PN.PCM_ITS ---
History of Present Illness Date of Service: 06/27/24 Chief Complaint: Left lateral leg ulcer that was initially caused by trauma from bumping leg on edge of car. History of Wound: Patient is 83 year female who presents for further evaluation of an ulcer on her left posterolateral leg. She initially bumped her leg on her car frame when removing something from her car on 05/22/24 and needed sutures to her left anterior leg. She then developed increased pain, swelling and a hematoma to her left leg and was seen in the ED very early on 05/27/23. She is on chronic anticoagulation for Afib, her INR was 5.3 at that time. She was discharged home with follow up with her PCP later that day. She returned to the ED via squad later that day after she experienced a large amount of bleeding. The hematoma was evacuated in the ED under sedation. She was admitted to the hospital and she required transfusion of 1 unit PRBC when her hemoglobin dropped from 11 to 6.9. She was transferred to [facility] for a little while. 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 She states she is doing well at home. Her daughter is helping her with her dressing changes. Wound care - Makenzie. She has a history of Afib, usp coagulation, mitral valve regurgitation, cardiac ablation, cardiac pace maker, DVT, HTN, hyperlipidemia, rheumatoid arthritis, cataract removal, and multiple wounds in the past. Wound cultures obtained 07/27/23 which were positive for Pseudomonas aeruginosa, MRSA, Corynebacterium striatum, and Anaerobic cocci. She was placed on Flagyl and finished them. She was placed on Levaquin and is tolerating them thus far. She was placed on Linezolid and stated she had some visual problems and stopped the antibiotic. Stopped the Clindamycin due severe heart burn. Re-cultured the ulcer on 08/25/23 and it was positive for Acinetobacter baumannii. Started her on Augmentin, which she has tolerated in the past. Arterial studies obtained 03/31/24 - Right GEOVANNA at digital level 0.92 (non compressible at posterior tib and dorsalis pedis). Left GEOVANNA 1.10. Triphasic Doppler waveforms are noted at ankle level bilaterally. Pulse-volume recordings appear satisfactory at all levels bilaterally. The resting right ankle-brachial index could not be determined due to the non-compressibility of the vasculature at ankle level on the right. The resting left ankle-brachial index is normal. Digital-brachial indices are normal bilaterally. There is evidence of arterial calcification at ankle level on the right. There is no evidence of significant arterial occlusive disease in the lower extremities bilaterally. Venous doppler obtained 03/31/24 - Deep veins of the lower extremities are bilaterally patent and compressible segmentally. There is no evidence of deep vein thrombosis on either side. The right sapheno-femoral junction is incompetent . The right great saphenous vein appears segmentally incompetent. The left great saphenous vein appears incompetent below the knee. The accessory saphenous vein in the right mid-thigh and mid-calf are incompetent. Chronic venous changes are noted in an accessory saphenous vein in the right calf. Today she denies fever, chills, nausea or vomiting. Her appetite is good. Patient was interested in advanced skin substitute grafts to help the ulcer to heal. She has had 10 applications of Theraskin. Progress of Wound: Left lateral leg ulcer is much smaller in size. The wound bed is nice beefy pink color. She is tolerating the 3 M 2 layer wraps on her left leg and she has no edema. She is wearing a double tubigrip for her edema on her right lower extremity. Stressed importance keeping legs elevated while sitting to help with swelling. She has received her Circaid compression stockings. Objective Data Objective Data Vital Signs: Vital Signs Temp Pulse Resp BP O2 Del Method 96.9 F L 91 16 155/93 H Room Air 06/27/24 09:36 06/27/24 09:36 06/27/24 09:36 06/27/24 09:36 06/27/24 09:36 Oxygen Delivery Method Room Air Weight: 170 lb 12.573 oz Body Mass Index (BMI) 27.6 Charges/Coding Procedures Integumentary 111xxx-113xx: 07217 Humera subq tissue 20 sq cm/< Debridement Note Debridement Note Wound debrided: #3 - Left posterolateral leg ulcer cluster Laterality: Left Wound Grade/Stage: Grade III Type of Debridement: Excisional debridement Anesthesia Used: 5% Lidocaine Gel Depth: Down to and including healthy tissue and in the subcutaneous layer Percentage of wound debrided: 100 Instrument Used: 3mm curette Tissue Removed: subcutaneous tissue, senescent cells Severity: Fat Layer Exposed Amount of bleeding with debridement: Mild Bleeding Controlled with: Pressure and Compression and gauze Patient tolerated procedure: Patient tolerated procedure well Post-Debridement Measurements and Additional Note: Post-Debridement Measurements/Treatment - Nurse 1 - General Ulcer Assessment Start: 06/27/24 09:35 Freq: Status: Active Protocol: LAWRENCE Activity Type Activity Date Activity User E-sign Co-sign Detail Recorded Client Recorded Date Recorded By Document 06/27/24 09:36 [facility] [id number] 06/27/24 09:42 [facility] 06/27/24 09:36 - Today's Visit Information Type of service 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 ) Arrival Mode Ambulatory Transfer Assistance None Patient Identification Verified (Name & Yes ) Patient Requires Transmission-Based No Precautions Height and Weight Body Mass Index (BMI) 27.6 BMI Classification Overweight Vital Signs Temperature (97.8 F-99.1 F) 96.9 F L Temperature Source Temporal Pulse Rate (60-100) 91 Pulse Location Monitor Respiratory Rate (12-18) 16 Respiratory rate source Observation Oxygen Delivery Method Room Air Blood Pressure (90/60-120/80) 155/93 H Blood Pressure Mean (mm Hg) 113 Source Monitor Position Sitting History Since Last Visit- (Skip if this is Patient's initial visit) Have you changed medications since your No last visit? Any new allergies or adverse reactions No Had a fall/change in ADL's that may No increase risk of falls Signs or symptoms of abuse and/or No neglect since last visit Have you been in the hospital since your No last visit? Has dressing in place as prescribed Yes Has compression in place as prescribed Yes Has offloadiing in place as prescribed N/A Experienced any changes in pain level or No management Left Footwear Regular Shoe Right Footwear Regular Shoe Pain Scale: 0-10 Numeric Is Patient Pain Free? Yes - Nurse 1 - General Ulcer Measurement Start: 06/27/24 09:35 Freq: Status: Active Protocol: Activity Type Activity Date Activity User E-sign Co-sign Detail Recorded Client Recorded Date Recorded By Document 06/27/24 09:36 [facility] [id number] 06/27/24 09:42 [facility] 06/27/24 09:36 Wound Center Nurse 1 #3 L Calf cluster -Combined with other wound No -Current Size (cm) - Length 0.5 -Current Size (cm) - Width 0.5 -Current Size (cm) - Depth 0.1 -Total Square Cm 0.25 -Date of Last Picture (Recall this 06/27/24 field) -Photo Taken Yes -Epithelialization Small 1-33% -Tunneling No -Undermining/Tunneling No -Circular Undermining No -Exudate Amt Medium -Exudate Type Serosanguineous -Wound Margin Distinct, Outline Attached -Granulation Amt Large (67-100%) -Granulation Quality [place] -Slough/Fibrin No -Necrosis Amt None Present (0 %) -Texture (Karen-wound Skin Appearance) Assessed, Scarring -Moisture (Karen-wound Skin Appearance) Assessed,Dry/ Scaly -Color (Karen-wound Skin Appearance) Assessed -Temperature (Karen-wound Skin No Abnormality Appearance) (Pt Warm) -Tenderness on Palpation (Karen-wound No Skin Appearance) -Ulcer Cleansing Soap and Water -Foul Odor after Cleansing No -Anesthetic Used 5% Lidocaine Gel Lower Limb Edema Present Yes Left Calf (cm) 34.5 Left Ankle (cm) 19.5 WC - Nurse 2 - General Ulcer CM Notes Start: 06/27/24 09:35 Freq: Status: Active Protocol: Activity Type Activity Date Activity User E-sign Co-sign Detail Recorded Client Recorded Date Recorded By Document 06/27/24 10:05 TERRY [id number] 06/27/24 10:06 TERRY 06/27/24 10:05 Wound Center Nurse 2 #3 L Calf cluster -Time 10:05 -Correct Patient Yes -Correct Side, Site, Position Yes -Correct Procedure Yes -Procedure Performed Yes -Type of Procedure Debridement -Clinical Debridement Subcutaneous -Tissue Removed Subcutaneous -Post Debridement (cm) - Length 0.2 -Post Debridement (cm) - Width 0.4 -Post Debridement (cm) - Depth 0.1 -Total Square (Post) (cm) 0.08 -Area of Debridement (cm) - Length 0.2 -Area of Debridement (cm) - Width 0.4 -Total Square (Area) (cm) 0.08 -Tunneling No -Undermining/Tunneling No -Circular Undermining No -Wound/Ulcer Outcome Not Healed -Ulcer Cleansing Rinsed/ Irrigated with Saline -Foul Odor after Cleansing No -Bioengineered Tissue No -Bleeding Controlled with Pressure -Treatment Response Procedure Tolerated Well -Offloading No -Debridement - Subq, 1st 20sq cm Yes Pain Scale: 0-10 Numeric Is Patient Pain Free? Yes - Nurse 3 - General Ulcer D/C NN Start: 06/27/24 09:35 Freq: Status: Active Protocol: Activity Type Activity Date Activity User E-sign Co-sign Detail Recorded Client Recorded Date Recorded By Document 06/27/24 10:22 [facility] [id number] 06/27/24 10:23 [facility] 06/27/24 10:22 Wound Care Center Nurse 3 #3 L Calf cluster -Ulcer Cleansing Rinsed/ Irrigated with Saline -Foul Odor after Cleansing No -Primary Dressing Applied C Hydrogel ($), NonAdherent Contact Layer -Primary Dressing Covered/Secured with Dry Gauze & Roll Gauze, Secured with Tape Left -Other circaid Treatment Response Procedure Tolerated Well Pain Scale: 0-10 Numeric Is Patient Pain Free? 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: CODE(S): L97.902 - Non-pressure chronic ulcer of unspecified part of unspecified lower leg with fat layer exposed QUALIFIERS: Laterality: left Qualified Code(s): L97.922 - Non- pressure chronic ulcer of unspecified part of left lower leg with fat layer exposed (2) Contusion of left lower leg, sequela: CODE(S): S80.12XS - Contusion of left lower leg, sequela (3) Hematoma: CODE(S): T14.8XXA - Other injury of unspecified body region, initial encounter (4) Chronic anticoagulation: CODE(S): 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 Wound care - Collagen Hydrogel topped with Adaptic and covered with gauze daily. Wash the ulcer with soap and water at the time of the dressing changes. Compression - Circaid 30-40 mmHg to left leg. She wears a double tubigrip on the right lower extremity. Encouraged protein supplementation to help with wound healing. She has been using Daniel. Encouraged her to consider being referred for an evaluation for a skin graft. She states that she will think about it. She will follow up in one week with me. Instructed her to come in sooner if the wrap starts to slide down.
--- NOTE | 2024-06-27 12:21 | PCM.WC.PN ---
History of Present Illness Date of Service: 06/27/24 Chief Complaint: Left lateral leg ulcer that was initially caused by trauma from bumping leg on edge of car. History of Wound: Patient is 83 year female who presents for further evaluation of an ulcer on her left posterolateral leg. She initially bumped her leg on her car frame when removing something from her car on 05/22/24 and needed sutures to her left anterior leg. She then developed increased pain, swelling and a hematoma to her left leg and was seen in the ED very early on 05/27/23. She is on chronic anticoagulation for Afib, her INR was 5.3 at that time. She was discharged home with follow up with her PCP later that day. She returned to the ED via squad later that day after she experienced a large amount of bleeding. The hematoma was evacuated in the ED under sedation. She was admitted to the hospital and she required transfusion of 1 unit PRBC when her hemoglobin dropped from 11 to 6.9. She was transferred to [facility] for a little while. She comes in today for further evaluation of her left posterolateral leg ulcer from a hematoma. She states she is doing well at home. Her daughter is helping her with her dressing changes. Wound care - Makenzie. 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 Wound cultures obtained 07/27/23 which were positive for Pseudomonas aeruginosa, MRSA, Corynebacterium striatum, and Anaerobic cocci. She was placed on Flagyl and finished them. She was placed on Levaquin and is tolerating them thus far. She was placed on Linezolid and stated she had some visual problems and stopped the antibiotic. Stopped the Clindamycin due severe heart burn. Re-cultured the ulcer on 08/25/23 and it was positive for Acinetobacter baumannii. Started her on Augmentin, which she has tolerated in the past. Arterial studies obtained 03/31/24 - Right GEOVANNA at digital level 0.92 (non compressible at posterior tib and dorsalis pedis). Left GEOVANNA 1.10. Triphasic Doppler waveforms are noted at ankle level bilaterally. Pulse-volume recordings appear satisfactory at all levels bilaterally. The resting right ankle-brachial index could not be determined due to the non-compressibility of the vasculature at ankle level on the right. The resting left ankle-brachial index is normal. Digital-brachial indices are normal bilaterally. There is evidence of arterial calcification at ankle level on the right. There is no evidence of significant arterial occlusive disease in the lower extremities bilaterally. Venous doppler obtained 03/31/24 - Deep veins of the lower extremities are bilaterally patent and compressible segmentally. There is no evidence of deep vein thrombosis on either side. The right sapheno-femoral junction is incompetent . The right great saphenous vein appears segmentally incompetent. The left great saphenous vein appears incompetent below the knee. The accessory saphenous vein in the right mid-thigh and mid-calf are incompetent. Chronic venous changes are noted in an accessory saphenous vein in the right calf. Today she denies fever, chills, nausea or vomiting. Her appetite is good. Patient was interested in advanced skin substitute grafts to help the ulcer to heal. She has had 10 applications of Theraskin. Progress of Wound: Left lateral leg ulcer is much smaller in size. The wound bed is nice beefy pink color. She is tolerating the 3 M 2 layer wraps on her left leg and she has no edema. She is wearing a double tubigrip for her edema on her right lower extremity. Stressed importance keeping legs elevated while sitting to help with swelling. She has received her Circaid compression stocking for her left leg. Objective Data Objective Data Vital Signs: Vital Signs Temp Pulse Resp BP O2 Del Method 96.9 F L 91 16 155/93 H Room Air 06/27/24 09:36 06/27/24 09:36 06/27/24 09:36 06/27/24 09:36 06/27/24 09:36 Oxygen Delivery Method Room Air Weight: 170 lb 12.573 oz Body Mass Index (BMI) 27.6 Charges/Coding Procedures Integumentary 111xxx-113xx: 04110 Humera subq tissue 20 sq cm/< Debridement Note Debridement Note Wound debrided: #3 - Left posterolateral leg ulcer cluster Laterality: Left Wound Grade/Stage: Grade III Type of Debridement: Excisional debridement Anesthesia Used: 5% Lidocaine Gel Depth: Down to and including healthy tissue and in the subcutaneous layer Percentage of wound debrided: 100 Instrument Used: 3mm curette Tissue Removed: subcutaneous tissue, senescent cells Severity: Fat Layer Exposed Amount of bleeding with debridement: Mild Bleeding Controlled with: Pressure and Compression and gauze Patient tolerated procedure: Patient tolerated procedure well Post-Debridement Measurements and Additional Note: Post-Debridement Measurements/Treatment - Nurse 1 - General Ulcer Assessment Start: 06/27/24 09:35 Freq: Status: Active Protocol: LAWRENCE Activity Type Activity Date Activity User E-sign Co-sign Detail Recorded Client Recorded Date Recorded By Document 06/27/24 09:36 [facility] [id number] 06/27/24 09:42 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 ) Arrival Mode Ambulatory Transfer Assistance None Patient Identification Verified (Name & Yes ) Patient Requires Transmission-Based No Precautions Height and Weight Body Mass Index (BMI) 27.6 BMI Classification Overweight Vital Signs Temperature (97.8 F-99.1 F) 96.9 F L Temperature Source Temporal Pulse Rate (60-100) 91 Pulse Location Monitor Respiratory Rate (12-18) 16 Respiratory rate source Observation Oxygen Delivery Method Room Air Blood Pressure (90/60-120/80) 155/93 H Blood Pressure Mean (mm Hg) 113 Source Monitor Position Sitting History Since Last Visit- (Skip if this is Patient's initial visit) Have you changed medications since your No last visit? Any new allergies or adverse reactions No Had a fall/change in ADL's that may No increase risk of falls Signs or symptoms of abuse and/or No neglect since last visit Have you been in the hospital since your No last visit? Has dressing in place as prescribed Yes Has compression in place as prescribed Yes Has offloadiing in place as prescribed N/A Experienced any changes in pain level or No management Left Footwear Regular Shoe Right Footwear Regular Shoe Pain Scale: 0-10 Numeric Is Patient Pain Free? Yes - Nurse 1 - General Ulcer Measurement Start: 06/27/24 09:35 Freq: Status: Active Protocol: Activity Type Activity Date Activity User E-sign Co-sign Detail Recorded Client Recorded Date Recorded By Document 06/27/24 09:36 [facility] [id number] 06/27/24 09:42 [facility] 06/27/24 09:36 Wound Center Nurse 1 #3 L Calf cluster -Combined with other wound No -Current Size (cm) - Length 0.5 -Current Size (cm) - Width 0.5 -Current Size (cm) - Depth 0.1 -Total Square Cm 0.25 -Date of Last Picture (Recall this 06/27/24 field) -Photo Taken Yes -Epithelialization Small 1-33% -Tunneling No -Undermining/Tunneling No -Circular Undermining No -Exudate Amt Medium -Exudate Type Serosanguineous -Wound Margin Distinct, Outline Attached -Granulation Amt Large (67-100%) -Granulation Quality [place] -Slough/Fibrin No -Necrosis Amt None Present (0 %) -Texture (Karen-wound Skin Appearance) Assessed, Scarring -Moisture (Karen-wound Skin Appearance) Assessed,Dry/ Scaly -Color (Karen-wound Skin Appearance) Assessed -Temperature (Karen-wound Skin No Abnormality Appearance) (Pt Warm) -Tenderness on Palpation (Karen-wound No Skin Appearance) -Ulcer Cleansing Soap and Water -Foul Odor after Cleansing No -Anesthetic Used 5% Lidocaine Gel Lower Limb Edema Present Yes Left Calf (cm) 34.5 Left Ankle (cm) 19.5 WC - Nurse 2 - General Ulcer CM Notes Start: 06/27/24 09:35 Freq: Status: Active Protocol: Activity Type Activity Date Activity User E-sign Co-sign Detail Recorded Client Recorded Date Recorded By Document 06/27/24 10:05 TERRY [id number] 06/27/24 10:06 TERRY 06/27/24 10:05 Wound Center Nurse 2 #3 L Calf cluster -Time 10:05 -Correct Patient Yes -Correct Side, Site, Position Yes -Correct Procedure Yes -Procedure Performed Yes -Type of Procedure Debridement -Clinical Debridement Subcutaneous -Tissue Removed Subcutaneous -Post Debridement (cm) - Length 0.2 -Post Debridement (cm) - Width 0.4 -Post Debridement (cm) - Depth 0.1 -Total Square (Post) (cm) 0.08 -Area of Debridement (cm) - Length 0.2 -Area of Debridement (cm) - Width 0.4 -Total Square (Area) (cm) 0.08 -Tunneling No -Undermining/Tunneling No -Circular Undermining No -Wound/Ulcer Outcome Not Healed -Ulcer Cleansing Rinsed/ Irrigated with Saline -Foul Odor after Cleansing No -Bioengineered Tissue No -Bleeding Controlled with Pressure -Treatment Response Procedure Tolerated Well -Offloading No -Debridement - Subq, 1st 20sq cm Yes Pain Scale: 0-10 Numeric Is Patient Pain Free? Yes - Nurse 3 - General Ulcer D/C NN Start: 06/27/24 09:35 Freq: Status: Active Protocol: Activity Type Activity Date Activity User E-sign Co-sign Detail Recorded Client Recorded Date Recorded By Document 06/27/24 10:22 [facility] [id number] 06/27/24 10:23 [facility] 06/27/24 10:22 Wound Care Center Nurse 3 #3 L Calf cluster -Ulcer Cleansing Rinsed/ Irrigated with Saline -Foul Odor after Cleansing No -Primary Dressing Applied C Hydrogel ($), NonAdherent Contact Layer -Primary Dressing Covered/Secured with Dry Gauze & Roll Gauze, Secured with Tape Left -Other circaid Treatment Response Procedure Tolerated Well Pain Scale: 0-10 Numeric Is Patient Pain Free? 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: CODE(S): L97.902 - Non-pressure chronic ulcer of unspecified part of unspecified lower leg with fat layer exposed QUALIFIERS: Laterality: left Qualified Code(s): L97.922 - Non-pressure chronic ulcer of unspecified part of left lower leg with fat layer exposed (2) Contusion of left lower leg, sequela: CODE(S): S80.12XS - Contusion of left lower leg, sequela (3) Hematoma: CODE(S): T14.8XXA - Other injury of unspecified body region, initial encounter (4) Chronic anticoagulation: 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 Wound care - Collagen Hydrogel topped with Adaptic and covered with gauze daily. Wash the ulcer with soap and water at the time of the dressing changes. Compression - Circaid 30-40 mmHg to left leg. She wears a double tubigrip on the right lower extremity. Encouraged protein supplementation to help with wound healing. She has been using Daniel. Encouraged her to consider being referred for an evaluation for a skin graft. She states that she will think about it. She will follow up in one week with me. Instructed her to come in sooner if she develops any concerns.
--- NOTE | 2024-06-28 12:09 | WC ---
PHOTO 06/27/24 LEFT CALF
[2024-07-04 09:09] VITALS: BP 160/90; PULSE 90; RESP 16; TEMP 36.2; BMI 27.6
--- NOTE | 2024-07-04 12:18 | PN.PCM_ITS ---
History of Present Illness Date of Service: 07/04/24 Chief Complaint: Left lateral leg ulcer that was initially caused by trauma from bumping leg on edge of car. History of Wound: Patient is 83 year female who presents for further evaluation of an ulcer on her left posterolateral leg. She initially bumped her leg on her car frame when removing something from her car on 05/22/24 and needed sutures to her left anterior leg. She then developed increased pain, swelling and a hematoma to her left leg and was seen in the ED very early on 05/27/23. She is on chronic anticoagulation for Afib, her INR was 5.3 at that time. She was discharged home with follow up with her PCP later that day. She returned to the ED via squad later that day after she experienced a large amount of bleeding. The hematoma was evacuated in the ED under sedation. She was admitted to the hospital and she required transfusion of 1 unit PRBC when her hemoglobin dropped from 11 to 6.9. She was transferred to [facility] for a little while. 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 She states she is doing well at home. Her daughter is helping her with her dressing changes. Wound care - Makenzie. 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 Wound cultures obtained 07/27/23 which were positive for Pseudomonas aeruginosa, MRSA, Corynebacterium striatum, and Anaerobic cocci. She was placed on Flagyl and finished them. She was placed on Levaquin and is tolerating them thus far. She was placed on Linezolid and stated she had some visual problems and stopped the antibiotic. Stopped the Clindamycin due severe heart burn. Re-cultured the ulcer on 08/25/23 and it was positive for Acinetobacter baumannii. Started her on Augmentin, which she has tolerated in the past. Arterial studies obtained 03/31/24 - Right GEOVANNA at digital level 0.92 (non compressible at posterior tib and dorsalis pedis). Left GEOVANNA 1.10. Triphasic Doppler waveforms are noted at ankle level bilaterally. Pulse-volume recordings appear satisfactory at all levels bilaterally. The resting right ankle-brachial index could not be determined due to the non-compressibility of the vasculature at ankle level on the right. The resting left ankle-brachial index is normal. Digital-brachial indices are normal bilaterally. There is evidence of arterial calcification at ankle level on the right. There is no evidence of significant arterial occlusive disease in the lower extremities bilaterally. Venous doppler obtained 03/31/24 - Deep veins of the lower extremities are bilaterally patent and compressible segmentally. There is no evidence of deep vein thrombosis on either side. The right sapheno-femoral junction is incompetent . The right great saphenous vein appears segmentally incompetent. The left great saphenous vein appears incompetent below the knee. The accessory saphenous vein in the right mid-thigh and mid-calf are incompetent. Chronic venous changes are noted in an accessory saphenous vein in the right calf. Today she denies fever, chills, nausea or vomiting. Her appetite is good. Patient was interested in advanced skin substitute grafts to help the ulcer to heal. She has had 10 applications of Theraskin. Progress of Wound: Left lateral leg ulcer is healed today! She has been wearing her Circaid compression stocking for her left leg and double tubigrip on her right leg. Objective Data Objective Data Vital Signs: Vital Signs Temp Pulse Resp BP O2 Del Method 97.1 F L 90 16 160/90 H Room Air 07/04/24 09:09 07/04/24 09:09 07/04/24 09:09 07/04/24 09:09 07/04/24 09:09 Oxygen Delivery Method Room Air Weight: 170 lb 12.573 oz Body Mass Index (BMI) 27.6 Charges/Coding Visit Charges Office Visits / Consults: 43365 OV L3 Est 20min Physical Exam Const alert and oriented x3 General Appearance: cooperative HEENT normocephalic Head and Scalp: atraumatic Eyes General Eye: normal appearance of both eyes Lymph Lymphatic: no lymphedema noted Resp normal respiratory effort and no use of accessory muscles Effort and Inspection: able to speak in complete sentences Cardio regular rate and regular rhythm Extremity normal capillary refill Skin Wound Narrative: Left lateral leg ulcer is healed today. Edema is controlled with Circaid on her left leg. She still has +2 edema on right leg that she is wearing double tubigrip. Neuro CN's II-XII intact bilaterally Psych affect normal Appearance: grossly normal Debridement Note Debridement Note Post-Debridement Measurements and Additional Note: Post-Debridement Measurements/Treatment WC - Nurse 1 - General Ulcer Assessment Start: 06/27/24 09:35 Freq: Status: Active Protocol: [place] Activity Type Activity Date Activity User E-sign Co-sign Detail Recorded Client Recorded Date Recorded By Document 06/27/24 09:36 [facility] [id number] 06/27/24 09:42 BM Document 07/04/24 09:09 [facility] [id number] 07/04/24 09:17 BM 06/27/24 07/04/24 09:36 09:09 WC - Today's Visit Information Type of service Follow-up Visit Follow-up Visit (Physician/SIZE CHANGER (Physician/SIZE CHANGER ) ) Arrival Mode Ambulatory Ambulatory Transfer Assistance None None Patient Identification Verified (Name & Yes Yes ) Patient Requires Transmission-Based No No Precautions Height and Weight Body Mass Index (BMI) 27.6 27.6 BMI Classification Overweight Overweight Vital Signs Temperature (97.8 F-99.1 F) 96.9 F L 97.1 F L Temperature Source Temporal Temporal Pulse Rate (60-100) 91 90 Pulse Location Monitor Monitor Respiratory Rate (12-18) 16 16 Respiratory rate source Observation Observation Oxygen Delivery Method Room Air Room Air Blood Pressure (90/60-120/80) 155/93 H 160/90 H Blood Pressure Mean (mm Hg) 113 113 Source Monitor Monitor Position Sitting Sitting Blood Pressure Location Right Arm History Since Last Visit- (Skip if this is Patient's initial visit) Have you changed medications since your No No last visit? Any new allergies or adverse reactions No No Had a fall/change in ADL's that may No No increase risk of falls Signs or symptoms of abuse and/or No No neglect since last visit Have you been in the hospital since your No No last visit? Has dressing in place as prescribed Yes Yes Has compression in place as prescribed Yes Yes Has offloadiing in place as prescribed N/A N/A Experienced any changes in pain level or No No management Left Footwear Regular Shoe Regular Shoe Right Footwear Regular Shoe Regular Shoe Pain Scale: 0-10 Numeric Is Patient Pain Free? Yes Yes - Nurse 1 - General Ulcer Measurement Start: 06/27/24 09:35 Freq: Status: Active Protocol: Activity Type Activity Date Activity User E-sign Co-sign Detail Recorded Client Recorded Date Recorded By Document 06/27/24 09:36 [id number] 06/27/24 09:42 [facility] Document 07/04/24 09:09 [facility] [id number] 07/04/24 09:17 BM 06/27/24 07/04/24 09:36 09:09 Wound Center Nurse 1 #3 L Calf cluster -Combined with other wound No No -Current Size (cm) - Length 0.5 0.1 -Current Size (cm) - Width 0.5 0.1 -Current Size (cm) - Depth 0.1 0.1 -Total Square Cm 0.25 0.01 -Date of Last Picture (Recall this 06/27/24 07/04/24 field) -Photo Taken Yes Yes -Epithelialization Small 1-33% Large 67-100% -Tunneling No No -Undermining/Tunneling No No -Circular Undermining No No -Exudate Amt Medium None Present -Exudate Type Serosanguineous -Wound Margin Distinct, Outline Attached -Granulation Amt Large (67-100%) -Granulation Quality [place] -Slough/Fibrin No -Necrosis Amt None Present (0 %) -Texture (Karen-wound Skin Appearance) Assessed, Assessed, Scarring Scarring -Moisture (Karen-wound Skin Appearance) Assessed,Dry/ Assessed,Dry/ Scaly Scaly -Color (Karen-wound Skin Appearance) Assessed Assessed, Hemosiderin Staining -Temperature (Karen-wound Skin No Abnormality No Abnormality Appearance) (Pt Warm) (Pt Warm) -Tenderness on Palpation (Karen-wound No No Skin Appearance) -Ulcer Cleansing Soap and Water Rinsed/ Irrigated with Saline -Foul Odor after Cleansing No No -Anesthetic Used 5% Lidocaine 5% Lidocaine Gel Gel -Wound Comment(s) karen wound red and irritated from where pts drsg had tape on skin Lower Limb Edema Present Yes Left Calf (cm) 34.5 36.8 Left Ankle (cm) 19.5 20.6 WC - Nurse 2 - General Ulcer CM Notes Start: 06/27/24 09:35 Freq: Status: Active Protocol: Activity Type Activity Date Activity User E-sign Co-sign Detail Recorded Client Recorded Date Recorded By Document 06/27/24 10:05 [facility] [id number] 06/27/24 10:06 Document 07/04/24 09:41 [id number] 07/04/24 09:42 06/27/24 07/04/24 10:05 09:41 Wound Center Nurse 2 #3 L Calf cluster -Time 10:05 -Correct Patient Yes No -Correct Side, Site, Position Yes No -Correct Procedure Yes No -Procedure Performed Yes No -Type of Procedure Debridement -Clinical Debridement Subcutaneous -Tissue Removed Subcutaneous -Post Debridement (cm) - Length 0.2 0 -Post Debridement (cm) - Width 0.4 0 -Post Debridement (cm) - Depth 0.1 0 -Total Square (Post) (cm) 0.08 0 -Area of Debridement (cm) - Length 0.2 0 -Area of Debridement (cm) - Width 0.4 0 -Total Square (Area) (cm) 0.08 0 -Tunneling No -Undermining/Tunneling No -Circular Undermining No -Wound/Ulcer Outcome Not Healed Healed- Epithelialized -Ulcer Cleansing Rinsed/ Irrigated with Saline -Foul Odor after Cleansing No -Bioengineered Tissue No -Bleeding Controlled with Pressure -Treatment Response Procedure Tolerated Well -Offloading No -Debridement - Subq, 1st 20sq cm Yes Pain Scale: 0-10 Numeric Is Patient Pain Free? Yes Yes - Nurse 3 - General Ulcer D/C NN Start: 06/27/24 09:35 Freq: Status: Active Protocol: Activity Type Activity Date Activity User E-sign Co-sign Detail Recorded Client Recorded Date Recorded By Document 06/27/24 10:22 [facility] [id number] 06/27/24 10:23 [facility] Document 07/04/24 09:42 [id number] 07/04/24 09:43 06/27/24 07/04/24 10:22 09:42 Wound Care Center Nurse 3 #3 L Calf cluster -Ulcer Cleansing Rinsed/ Irrigated with Saline -Foul Odor after Cleansing No -Primary Dressing Applied C Hydrogel ($), NonAdherent Contact Layer -Primary Dressing Covered/Secured with Dry Gauze & Roll Gauze, Secured with Tape Left -Stockings Yes: circaid applied -Other circaid Treatment Response Procedure Tolerated Well Pain Scale: 0-10 Numeric Is Patient Pain Free? Yes Yes - Visit Discharge Discharge Condition Stable Stable Ambulatory Status Ambulatory Ambulatory Transportation Private Auto Private Auto Medication Reconcilliation completed & Yes provided to patient/care provider Clinical Summary of Care Provided Yes Notes: patient healed and discharged. 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 She is healed today. She was instructed to massage this area with lotion 1-2 t imes per day to help soften scarring. Compression - She was educated that she needs to continue to wear compression to prevent swelling from reoccurring. She will wear her Circaid 30-40 mmHg to left leg. She wears a double tubigrip on the right lower extremity. She should keep her legs elevated when sitting. Follow up as needed.
--- NOTE | 2024-07-05 09:03 | WC ---
PHOTO 07/04/24 LEFT CALF
== END 2024-07-22 10:55 | disposition home or self-care (01) ==
LOC: WC 09:00
PROVIDERS: PCP Family Medicine Geriatric Medicine; Referring Provider Family Medicine Geriatric Medicine; Visit Provider Nurse Practitioner Family
DX: L97.922 Non-pressure chronic ulcer of unspecified part of left lower leg with fat layer exposed (principal); M06.9 Rheumatoid arthritis, unspecified; S80.12XS Contusion of left lower leg, sequela; Z95.0 Presence of cardiac pacemaker; Z79.01 Long term (current) use of 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s; Z86.718 Personal history of other venous thrombosis and embolism; I10 Essential (primary) hypertension; E78.5 Hyperlipidemia, unspecified
CPT/HCPCS: 11042; 99213; G0463

== ENCOUNTER → 2024-08-04 | Outpatient (CLI) | payer MEDICARE, OTHER, SELFPAY ==
--- NOTE | 2024-08-04 13:43 | STRESSREP ---
Stress Test Report Date: 08/04/2024 Procedure: Pharmacologic stress nuclear imaging study Indications: Chest pain Consent: Per the patient Procedure: The patient underwent pharmacologic (Regadenoson) evaluation with a peak heart rate of 85 beats per minute (61%predicted maximal heart rate) and a peak blood pressure of 138/72 mmHg. The baseline ECG demonstrated atrial flutter/atrial tachycardia with controlled ventricular response. EKG during lexiscan infusion revealed no significant ischemic changes. EKG post infusion revealed no significant ischemic changes [There was no complaint of chest discomfort during pharmacologic infusion or recovery]. The examination was discontinued secondary to completion of protocol. Impression: 1. Lexiscan stress test test is negative for Lexiscan infusion induced EKG changes of ischemia. 2. Lexiscan stress test test is negative for Lexiscan infusion induced chest pain. 3. Results of the nuclear portion of the test is as below Myocardial perfusion imaging study: Technique: The patient was injected with 11.7 millicuries of technetium 99m Cardiolite and subsequently rest SPECT Cardiolite nuclear imaging was obtained in the horizontal long, vertical long, and short axis views. The patient underwent pharmacologic [Regadenoson 0.4mg] evaluation. Please see above for details. The patient was injected with 33.9 millicuries of technetium 99m Cardiolite and subsequently stress SPECT Cardiolite nuclear imaging was obtained in the horizontal long, vertical long, and short axis views. A gated Cardiolite study at peak stress was obtained. Interpretation: Rest and stress SPECT Cardiolite nuclear imaging status post realignment, normalization, and attenuation correction demonstrate no evidence of significant ischemia or infarction. Gated images reveal no significant regional wall motion abnormalities. The reported LVEF is 67%. Impression: 1. There is no evidence of significant ischemia or infarction. 2. Estimated ejection fraction is 67%. This note was generated with imgScrimmageation software. It may contain incorrect words, spelling, and punctuation that were not noted in checking the note before signing.
== END | disposition home or self-care (01) ==
LOC: CVS 06:49
PROVIDERS: PCP Family Medicine Geriatric Medicine; Referring Provider Physician Assistant Medical; Visit Provider Physician Assistant Medical
DX: R06.09 Other forms of dyspnea (principal); R07.9 Chest pain, unspecified
CPT/HCPCS: 78452; 93017; A9500; A4216; J2785

== ENCOUNTER → 2024-08-11 | Outpatient (CLI) | payer MEDICARE, OTHER, SELFPAY ==
[2024-08-11 11:49] LABS: Anion Gap 10 (5-15); BUN 19 mg/dL (4-19); BUN/Creat Ratio 22.8 RATIO (10-20); Calcium,Total 8.9 mg/dL (7.6-11.0); Carbon Dioxide 27.2 mmol/L (21.0-32.0); Chloride 93 mmol/L (98-108); Creatinine, Serum 0.82 mg/dL (0.70-1.20); EST Glomerular Filtration Rate 71 (>60); Glucose 91 mg/dL (70-99); Potassium 3.8 mmol/L (3.3-5.1); Sodium Level 130 mmol/L (133-145)
== END | disposition home or self-care (01) ==
LOC: LAB 10:18
PROVIDERS: PCP Family Medicine Geriatric Medicine; Referring Provider Physician Assistant Medical; Visit Provider Physician Assistant Medical
DX: I10 Essential (primary) hypertension (principal)
CPT/HCPCS: 36415; 80048

== ENCOUNTER → 2024-08-25 | Outpatient (CLI) | payer MEDICARE, OTHER, SELFPAY ==
[2024-08-25 12:13] LABS: Anion Gap 10 (5-15); BUN 19 mg/dL (4-19); BUN/Creat Ratio 23.3 RATIO (10-20); Carbon Dioxide 28.1 mmol/L (21.0-32.0); Chloride 93 mmol/L (98-108); Creatinine, Serum 0.82 mg/dL (0.70-1.20); EST Glomerular Filtration Rate 72 (>60); Glucose 67 mg/dL (70-99); Potassium 3.9 mmol/L (3.3-5.1); Sodium Level 131 mmol/L (133-145)
== END | disposition home or self-care (01) ==
LOC: LAB 10:41
PROVIDERS: PCP Family Medicine Geriatric Medicine; Referring Provider Physician Assistant Medical; Visit Provider Physician Assistant Medical
DX: I10 Essential (primary) hypertension (principal)
CPT/HCPCS: 36415; 80048

== ENCOUNTER → 2024-09-08 | Outpatient (CLI) | payer MEDICARE, OTHER, SELFPAY ==
[2024-09-08 11:56] LABS: Anion Gap 10 (5-15); BUN 22 mg/dL (4-19); BUN/Creat Ratio 25.2 RATIO (10-20); Calcium,Total 8.9 mg/dL (7.6-11.0); Carbon Dioxide 24.9 mmol/L (21.0-32.0); Chloride 104 mmol/L (98-108); Creatinine, Serum 0.87 mg/dL (0.70-1.20); EST Glomerular Filtration Rate 67 (>60); Glucose 72 mg/dL (70-99); Potassium 4.5 mmol/L (3.3-5.1); Sodium Level 139 mmol/L (133-145)
== END | disposition home or self-care (01) ==
LOC: LAB 09:42
PROVIDERS: PCP Family Medicine Geriatric Medicine; Referring Provider Physician Assistant Medical; Visit Provider Physician Assistant Medical
DX: I10 Essential (primary) hypertension (principal); E87.1 Hypo-osmolality and hyponatremia; Z51.81 Encounter for therapeutic drug level monitoring; Z79.899 Other long term (current) drug therapy
CPT/HCPCS: 36415; 80048

== ENCOUNTER → 2024-09-29 | Outpatient (CLI) | payer MEDICARE, OTHER, SELFPAY ==
[2024-09-29 11:46] LABS: BUN 21 mg/dL (4-19); Creatinine, Serum 0.87 mg/dL (0.70-1.20); EST Glomerular Filtration Rate 66 (>60)
== END | disposition home or self-care (01) ==
LOC: LAB 10:36
PROVIDERS: PCP Family Medicine Geriatric Medicine
DX: D32.0 Benign neoplasm of cerebral meninges (principal)
CPT/HCPCS: 36415; 82565; 84520

== ENCOUNTER → 2024-10-20 | Outpatient (CLI) | payer MEDICARE, OTHER, SELFPAY ==
--- NOTE | 2024-10-20 13:00 | MRI_ITS ---
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 Multiplanar and multisequence images were obtained. CONTRAST: 15 cc clear scan COMPARISON: 10/01/2021 FINDINGS: Normal craniovertebral junction. No abnormal diffusion. Brainstem and cerebellum unremarkable. No pathologic flow voids. Sinuses are clear. Orbits are unremarkable. Mild leukomalacia is seen in the cerebral white matter. Negative for hemorrhage. This scan was performed with and without contrast is routine brain protocol. Given the location of the patient's meningioma, I would recommend performing an orbital protocol with fat saturation in the future. The prior study included such as sequence. There is again seen abnormal enhancement in the region of the planum on the left side measuring 16 x 9 mm. Similar in volume to the prior study transversely but slightly increased in height. Enhancement extends ventrally and appears to involve the optic nerve root sheath. Although limited by lack of fat saturation, the degree of enhancement in the volume of enhancement within the orbital apex appear similar. There is no abnormal enhancement elsewhere. The abnormal enhancement extends from the cisternal portion into the intraorbital portions around the optic nerve sheath. MRI/Brain W/WO Contrast IMPRESSION: Very similar volume of left anterior cranial fossa meningioma surrounding the p roximal optic nerve sheath and protruding above the planum on the left side abutting the left A1 segment. Recommend future sca ns be performed including an orbital protocol to include fat saturation which would produce the most accurate measurements Reading Location: [facility]
[2024-10-20 13:15] VITALS: BP 128/72; PULSE 100; RESP 18; O2SAT 94
[2024-10-20 13:30] VITALS: BP 132/85; PULSE 100; O2SAT 95
[2024-10-20 13:42] VITALS: BP 129/81; PULSE 100; O2SAT 93
== END | disposition home or self-care (01) ==
LOC: OPMRI 12:29
PROVIDERS: PCP Family Medicine Geriatric Medicine
DX: D32.0 Benign neoplasm of cerebral meninges (principal)
CPT/HCPCS: 70553; A9575

== ENCOUNTER → 2024-11-10 | Outpatient (CLI) | payer MEDICARE, OTHER, SELFPAY ==
[2024-11-10 11:57] LABS: Absolute Lymphocyte Count 1.02 X10^3/uL (0.83-4.51); Absolute Neutrophil Count 5.5 X10^3/uL (2.0-7.7); Basophil# 0.02 X10^3/uL; Basophil% 0.3 % (0-1); Eosinophils% 1.4 % (0-5); Hematocrit 42.7 % (37-47); Hemoglobin 13.8 g/dL (12.0-15.0); Lymphocyte # 1.02 X10^3/ul (0.83-4.51); Lymphocyte % 14.4 % (19-41); Mean Corp Hgb Conc 32.3 g/dL (32-36); Mean Corpuscular Hgb 29.7 pg (27.0-32.0); Mean Corpuscular Volume 91.8 fL (81-99); Mean Platelet Vol. 10.8 fl (6.2-12.0); Monocyte# 0.38 X10^3/uL; Monocyte% 5.4 % (0-10); NRBC Flagged by Analyzer 0 % (0-5); Neutrophil # 5.53 X10^3/uL (2.7-7.7); Neutrophil % 78.2 % (47-70); Platelet Count 201 K/mm3 (150-450); RBC Distribution Width SD 54.3 fl (35.1-43.9); Red Blood Count 4.65 M/mm3 (4.2-5.4); White Blood Count 7.1 K/mm3 (4.4-11.0)
[2024-11-10 12:41] LABS: ALB/GLOB Ratio 1.1 RATIO (0.9-2.4); AST(SGOT) 23 U/L (<=31); Alanine Aminotransfer ALT/SGPT 15 U/L (<=34); Albumin, Serum 3.8 g/dL (3.4-4.8); Alkaline Phosphatase 96 U/L (35-104); Anion Gap 8 (5-15); BUN 24 mg/dL (4-19); BUN/Creat Ratio 24.2 RATIO (10-20); Calcium,Total 9.3 mg/dL (7.6-11.0); Carbon Dioxide 26.4 mmol/L (21.0-32.0); Chloride 104 mmol/L (98-108); Creatinine, Serum 0.98 mg/dL (0.70-1.20); EST Glomerular Filtration Rate 58 (>60); Globulin 3.3 g/dL (2.2-4.2); Glucose 74 mg/dL (70-99); Protein, Total 7.1 g/dL (5.9-8.4); Sodium Level 138 mmol/L (133-145); Total Bilirubin 0.73 mg/dL (0.00-1.30); Vitamin D,25 Hydroxy 50.6 ng/mL (30-100)
== END | disposition home or self-care (01) ==
LOC: LAB 11:10
PROVIDERS: PCP Family Medicine Geriatric Medicine; Referring Provider Family Medicine Geriatric Medicine; Visit Provider Family Medicine Geriatric Medicine
DX: I10 Essential (primary) hypertension (principal); E55.9 Vitamin D deficiency, unspecified
CPT/HCPCS: 36415; 80053; 82306; 84443; 85025

== ENCOUNTER → 2025-05-09 | Outpatient (CLI) | payer MEDICARE, OTHER, SELFPAY ==
[2025-05-09 10:18] LABS: Hematocrit 42.5 % (37-47); Hemoglobin 13.9 g/dL (12.0-15.0); Immature Granulocytes Count 0.020 X10^3/uL (0.0-0.0); Mean Corp Hgb Conc 32.7 g/dL (32-36); Mean Corpuscular Volume 94.0 fL (81-99); Mean Platelet Vol. 10.8 fl (6.2-12.0); NRBC Flagged by Analyzer 0 % (0-5); Platelet Count 201 K/mm3 (150-450); RBC Distribution Width CV 15.0 % (11.6-14.6); RBC Distribution Width SD 51.9 fl (35.1-43.9); Red Blood Count 4.52 M/mm3 (4.2-5.4); White Blood Count 7.2 K/mm3 (4.4-11.0)
[2025-05-09 10:55] LABS: AST(SGOT) 27 U/L (<=31); Alanine Aminotransfer ALT/SGPT 21 U/L (<=34); Albumin, Serum 4.1 g/dL (3.4-4.8); Alkaline Phosphatase 96 U/L (35-104); Anion Gap 9 (5-15); BUN 25 mg/dL (4-19); BUN/Creat Ratio 25.0 RATIO (10-20); Calcium,Total 9.4 mg/dL (7.6-11.0); Carbon Dioxide 26.0 mmol/L (21.0-32.0); Chloride 106 mmol/L (98-108); Globulin 3.1 g/dL (2.2-4.2); Glucose 84 mg/dL (70-99); Potassium 4.8 mmol/L (3.3-5.1); Vitamin D,25 Hydroxy 53.5 ng/mL (30-100)
[2025-05-09 18:06] LABS: Xtra Tube Kwok EXTRA TUBE
== END | disposition home or self-care (01) ==
LOC: POLAB3 10:06
PROVIDERS: PCP Family Medicine Geriatric Medicine; Visit Provider Family Medicine Geriatric Medicine
DX: E03.9 Hypothyroidism, unspecified (principal); E55.9 Vitamin D deficiency, unspecified; I10 Essential (primary) hypertension
CPT/HCPCS: 36415; 80053; 82306; 84443; 85025